=== PATIENT | female | born 1935 | race Caucasian/White ===

== ENCOUNTER 2017-07-25 12:57 | Inpatient (IN) | payer MEDICARE, BC ==
[2017-07-25] MEDS ORDERED: SODIUM CHLORIDE 0.9% 500 ML IV STA (13:06)
[2017-07-25] MEDS ORDERED: SODIUM CHLORIDE 0.9% 1,000 ML IV STA (13:06)
[2017-07-25] MEDS ORDERED: cefTRIAXone IN SWFI 1,000 MG/10 ML SYRINGE IVP STA (13:09)
--- NOTE | 2017-07-25 13:12 | ED ---
Weakness HPI - General Chief complaint: Weakness Stated complaint: Weakness Time Seen by Provider: 07/25/17 13:00 Source: EMS, RN notes reviewed Mode of arrival: EMS Limitations: no limitations - History of Present Illness Initial comments: This 82-year-old female with a history of hypertension and breast and colon cancer schizophrenia and hypertension who is brought in by EMS from an [facility] home with complaints of weakness she is noted have a temperature 101.2 A. fib with a heart rate of 110-120. She also noted be hypotensive she did respond to fluids. MD Complaint: generalized weakness - Related Data Home Medications Medication Instructions Recorded Confirmed Acetaminophen [Tylenol] 650 mg PO BID 07/25/17 07/25/17 Apixaban [Eliquis] 5 mg PO BID@0800,199907/25/17 07/25/17 Benzocaine/Menthol Lozeng [Cepacol 1 lozenge MUCOUS MEM Q4HR PRN 07/25/17 lozenge] Calcium Carbonate/Vitamin D3 1 tab PO BID@08,199907/25/17 07/25/17 [Calcium 600-Vit D3 400 Tablet] Carboxymethylcellulose Sodium 1 drop BOTH EYES Q6H PRN 07/25/17 07/25/17 [Refresh Tears] Docusate [Colace] 100 mg PO BID@0800,199907/25/17 07/25/17 Fluticasone Nasal [place] [Flonase 1 spray EA NOSTRIL DAILY@0800 07/25/17 07/25/17 Nasal [place]] Fluticasone/Salmeterol [Advair 1 puff INHALATION RT-BID@799,199907/25/1707/25 250-50 Diskus] Furosemide [Lasix] 40 mg PO DAILY@0800 07/25/17 07/25/17 Gabapentin [Neurontin] 300 mg PO BID@0800,199907/25/17 07/25/17 Hydrocortisone Acetate [Anucort-Hc] 25 mg RECTAL Q12H PRN 07/25/17 07/25/17 Loratadine [Claritin] 10 mg PO DAILY PRN 07/25/17 07/25/17 Multivit-Min/FA/Lycopen/Lutein 1 tab PO DAILY@0800 07/25/17 07/25/17 [Centrum Silver Tablet] OLANZapine [ZyPREXA Zydis] 20 mg PO HS@199907/25/17 07/25/17 Omeprazole [PriLOSEC] 20 mg PO BID@0600,199907/25/17 07/25/17 Polyethylene Glycol 3350 [Miralax] 17 gm PO DAILY PRN 07/25/17 07/25/17 Promethazine [Phenergan] 12.5 mg PO Q12H PRN 07/25/17 07/25/17 Simvastatin [Zocor] 20 mg PO HS@199907/25/17 07/25/17 guaiFENesin [Mucinex] 600 mg PO BID@0800,199907/25/17 07/25/17 guaiFENesin-DM 100-10MG/5ML 5 ml PO QID PRN 07/25/17 07/25/17 [Robitussin DM] traMADol HCL [Ultram] 50 mg PO TID PRN 07/25/17 07/25/17 Allergies Allergy/AdvReac Type Severity Reaction Status Date / Time No Known Allergies Allergy Verified 07/25/17 13:39 Review of Systems ROS Statement: Those systems with pertinent positive or pertinent negative responses have been documented in the HPI. Limitations: ROS unobtainable due to patients medical condition Past Medical History Past Medical History: Cancer, COPD, CVA/TIA, Hyperlipidemia, Hypertension Additional Past Medical History / Comment(s): colon & breast CA History of Any Multi-Drug Resistant Organisms: None Reported Past Surgical History: Breast Surgery Additional Past Surgical History / Comment(s): double mastectomy Past Psychological History: Schizophrenia Smoking Status: Never smoker Past Alcohol Use History: None Reported Past Drug Use History: None Reported General Exam - General Exam Comments Initial Comments: Is a well-developed well-nourished awake alert somewhat lethargic female Limitations: no limitations General appearance: alert, in no apparent distress Head exam: Present: atraumatic, normocephalic, normal inspection Eye exam: Present: normal appearance, PERRL, EOMI. Absent: scleral icterus, conjunctival injection, periorbital swelling ENT exam: Present: mucous membranes dry Neck exam: Present: normal inspection. Absent: tenderness, meningismus, lymphadenopathy Respiratory exam: Present: rhonchi (Right lower lobe rhonchi), decreased breath sounds. Absent: respiratory distress, wheezes, rales, stridor Cardiovascular Exam: Present: tachycardia, irregular rhythm. Absent: systolic murmur, diastolic murmur, rubs, gallop, clicks GI/Abdominal exam: Present: soft, normal bowel sounds. Absent: distended, tenderness, guarding, rebound, rigid Extremities exam: Present: normal inspection, full ROM, normal capillary refill. Absent: tenderness, pedal edema, joint swelling, calf tenderness Back exam: Present: normal inspection Neurological exam: Present: alert, oriented X3, CN II-XII intact Psychiatric exam: Present: normal affect, normal mood Skin exam: Present: warm, dry, intact, normal color. Absent: rash Course Vital Signs 07/25/17 07/25/17 07/25/17 12:59 13:51 14:36 Temperature 99.0 F Pulse Rate 120 H 109 H 95 Respiratory 20 18 18 Rate Blood Pressure 129/95 171/77 129/59 O2 Sat by Pulse 94 L 95 95 Oximetry 07/25/17 07/25/17 15:26 16:04 Temperature 98.8 F Pulse Rate 103 H 101 H Respiratory 18 18 Rate Blood Pressure 146/71 127/58 O2 Sat by Pulse 96 95 Oximetry EKG Findings - EKG Results: EKG: interpreted by ERMD (Atrial fibrillation rate of 114 QRS 80 QT since QTC of 3:30/465 nonspecific inferior changes nonspecific anterior changes) Medical Decision Making - Medical Decision Making Patient will be admitted I did discuss the case with the covering physician. The presentation is consistent with pneumonia dehydration renal insufficiency and rhabdomyolysis - Lab Data Result diagrams: 07/25/17 13:24 07/25/17 13:24 Lab Results 07/25/17 07/25/17 07/25/17 Range/Units 13:24 13:24 13:24 WBC 14.5 H (3.8-10.6) k/uL RBC 4.67 (3.80-5.40) m/uL Hgb 14.1 (11.4-16.0) gm/dL Hct 42.5 (34.0-46.0) % MCV 90.9 (80.0-100.0) fL MCH 30.2 (25.0-35.0) pg MCHC 33.3 (31.0-37.0) g/dL RDW 13.9 (11.5-15.5) % Plt Count 274 (150-450) k/uL Neutrophils % 91 % Lymphocytes % 3 % Monocytes % 5 % Eosinophils % 0 % Basophils % 0 % Neutrophils # 13.2 H (1.3-7.7) k/uL Lymphocytes # 0.4 L (1.0-4.8) k/uL Monocytes # 0.8 (0-1.0) k/uL Eosinophils # 0.0 (0-0.7) k/uL Basophils # 0.0 (0-0.2) k/uL Polychromasia Present Sodium 135 L (137-145) mmol/L Potassium 4.4 (3.5-5.1) mmol/L Chloride 99 (98-107) mmol/L Carbon Dioxide 28 (22-30) mmol/L Anion Gap 8 mmol/L BUN 50 H (7-17) mg/dL Creatinine 1.93 H (0.52-1.04) mg/dL Est GFR (MDRD) Af Amer 30 (>60 ml/min/1.73 sqM) Est GFR (MDRD) Non-Af 25 (>60 ml/min/1.73 sqM) Glucose 135 H (74-99) mg/dL Plasma Lactic Acid Miguel (0.7-2.0) mmol/L Calcium 10.1 (8.4-10.2) mg/dL Magnesium 2.5 H (1.6-2.3) mg/dL Total Bilirubin 0.9 (0.2-1.3) mg/dL AST 29 (14-36) U/L ALT 35 (9-52) U/L Alkaline Phosphatase 75 (38-126) U/L Total Creatine Kinase 885 H (30-135) U/L CK-MB (CK-2) 1.1 (0.0-2.4) ng/mL CK-MB (CK-2) Rel Index 0.1 Total Protein 6.2 L (6.3-8.2) g/dL Albumin 3.5 (3.5-5.0) g/dL Amylase 91 (30-110) U/L Lipase 64 (23-300) U/L Urine Color Urine Appearance (Clear) Urine pH (5.0-8.0) Ur Specific [place] (1.001-1.035) Urine Protein (Negative) Urine Glucose (UA) (Negative) Urine Ketones (Negative) Urine Blood (Negative) Urine Nitrite (Negative) Urine Bilirubin (Negative) Urine Urobilinogen (<2.0) mg/dL Ur Leukocyte Esterase (Negative) Urine RBC (0-5) /hpf Urine WBC (0-5) /hpf Urine WBC Clumps (None) /hpf Urine Bacteria (None) /hpf Hyaline Casts (0-2) /lpf Urine Mucus (None) /hpf 07/25/17 07/25/17 Range/Units 13:24 14:30 WBC (3.8-10.6) k/uL RBC (3.80-5.40) m/uL Hgb (11.4-16.0) gm/dL Hct (34.0-46.0) % MCV (80.0-100.0) fL MCH (25.0-35.0) pg MCHC (31.0-37.0) g/dL RDW (11.5-15.5) % Plt Count (150-450) k/uL Neutrophils % % Lymphocytes % % Monocytes % % Eosinophils % % Basophils % % Neutrophils # (1.3-7.7) k/uL Lymphocytes # (1.0-4.8) k/uL Monocytes # (0-1.0) k/uL Eosinophils # (0-0.7) k/uL Basophils # (0-0.2) k/uL Polychromasia Sodium (137-145) mmol/L Potassium (3.5-5.1) mmol/L Chloride (98-107) mmol/L Carbon Dioxide (22-30) mmol/L Anion Gap mmol/L BUN (7-17) mg/dL Creatinine (0.52-1.04) mg/dL Est GFR (MDRD) Af Amer (>60 ml/min/1.73 sqM) Est GFR (MDRD) Non-Af (>60 ml/min/1.73 sqM) Glucose (74-99) mg/dL Plasma Lactic Acid Miguel 1.8 (0.7-2.0) mmol/L Calcium (8.4-10.2) mg/dL Magnesium (1.6-2.3) mg/dL Total Bilirubin (0.2-1.3) mg/dL AST (14-36) U/L ALT (9-52) U/L Alkaline Phosphatase (38-126) U/L Total Creatine Kinase (30-135) U/L CK-MB (CK-2) (0.0-2.4) ng/mL CK-MB (CK-2) Rel Index Total Protein (6.3-8.2) g/dL Albumin (3.5-5.0) g/dL Amylase (30-110) U/L Lipase (23-300) U/L Urine Color Yellow Urine Appearance Cloudy H (Clear) Urine pH 5.5 (5.0-8.0) Ur Specific [place] 1.016 (1.001-1.035) Urine Protein Trace H (Negative) Urine Glucose (UA) Negative (Negative) Urine Ketones Negative (Negative) Urine Blood Negative (Negative) Urine Nitrite Negative (Negative) Urine Bilirubin Negative (Negative) Urine Urobilinogen <2.0 (<2.0) mg/dL Ur Leukocyte Esterase Large H (Negative) Urine RBC 1 (0-5) /hpf Urine WBC 75 H (0-5) /hpf Urine WBC Clumps Many H (None) /hpf Urine Bacteria Many H (None) /hpf Hyaline Casts 4 H (0-2) /lpf Urine Mucus Occasional H (None) /hpf - Radiology Data Radiology results: report reviewed (I did review the imaging and reports are is evidence of right lower lobe infiltrate also right middle lobe infiltrate.), image reviewed Disposition Clinical Impression: Pneumonia, Dehydration, New onset atrial fibrillation, Renal insufficiency, Rhabdomyolysis Disposition: ADMITTED IP TO THIS [facility] Condition: Serious Referrals: Dillon Beth MD [Primary Care Provider] - 1-2 days
[2017-07-25 13:49] LABS: Albumin 3.5 g/dL (3.5-5.0); Calcium 10.1 mg/dL (8.4-10.2); Magnesium 2.5 mg/dL (1.6-2.3); Potassium 4.4 mmol/L (3.5-5.1); Total Bilirubin 0.9 mg/dL (0.2-1.3); Total Protein 6.2 g/dL (6.3-8.2)
--- NOTE | 2017-07-25 13:57 | XR ---
EXAMINATION TYPE: XR chest 2V DATE OF EXAM: 07/25/2017 COMPARISON: None HISTORY: 82-year-old female with cough TECHNIQUE: AP and lateral views FINDINGS: Heart is upper limits of normal in size. Patchy interstitial and airspace opacities present in the ri ght perihilar, right mid and lower lung regions. No significant pleural effusion seen. IMPRESSION: Right mid and lower lung patchy and confluent consolidation. Correlate for possible pneumonia. Follow -up recommended.
[2017-07-25 14:01] LABS: Basophils % (A) 0 %; Eosinophils % (A) 0 %; HCT 42.5 % (34.0-46.0); HGB 14.1 gm/dL (11.4-16.0); Lymphocytes # (A) 0.4 k/uL (1.0-4.8); Lymphocytes % (A) 3 %; MCH 30.2 pg (25.0-35.0); MCHC 33.3 g/dL (31.0-37.0); MCV 90.9 fL (80.0-100.0); Mean Platelet Volume 7.6; Monocytes # (A) 0.8 k/uL (0-1.0); Monocytes % (A) 5 %; Neutrophils # (A) 13.2 k/uL (1.3-7.7); Neutrophils % (A) 91 %; Platelet Count 274 k/uL (150-450); RBC 4.67 m/uL (3.80-5.40); RDW 13.9 % (11.5-15.5); WBC 14.5 k/uL (3.8-10.6)
[2017-07-25 14:13] LABS: Creatine Kinase MB 1.1 ng/mL (0.0-2.4)
[2017-07-25 14:44] LABS: Appearance,Urine Cloudy (Clear); Bacteria,Urine Many /hpf; Bilirubin,Urine Negative (Negative); Blood,Urine Negative (Negative); Color,Urine Yellow; Glucose,Urine (UA) Negative (Negative); Hyaline Casts,Urine 4 /lpf (0-2); Ketones,Urine Negative (Negative); Leukocyte Esterase,Urine Large (Negative); Mucus,Urine Occasional /hpf; Nitrite,Urine Negative (Negative); PH, Urine 5.5 (5.0-8.0); Protein,Urine Trace (Negative); RBC,Urine 1 /hpf (0-5); Specific Gravity,Urine 1.016 (1.001-1.035); Urobilinogen,Urine <2.0 mg/dL (<2.0); WBC,Urine 75 /hpf (0-5)
[2017-07-25 15:18] LABS: Polychromasia Present
[2017-07-25] MEDS ORDERED: AZITHROMYCIN 500 MG in SODIUM CHLORIDE 0.9% 250 ML IVPB STA (16:09)
[2017-07-25] MEDS ORDERED: PNEUMONIA PROTOCOL UTILIZED 1 EACH MISC PO PRN (16:09)
[2017-07-25] MEDS ORDERED: LORATADINE 10 MG TAB PO PRN (16:11)
[2017-07-25] MEDS ORDERED: ARTIFICIAL TEARS-HYPROMELLOSE DROPS 15 ML BTL BOTH EYES PRN (16:11)
[2017-07-25] MEDS ORDERED: HYDROCORTISONE SUPPOSITORY 25 MG SUPP RECTAL PRN (16:11)
[2017-07-25] MEDS ORDERED: BENZOCAINE/MENTHOL LOZENG 1 EACH LOZENGE MUCOUS MEM PRN (16:11)
[2017-07-25] MEDS ORDERED: POLYETHYLENE GLYCOL 3350 17 GM POWD.PACK PO PRN (16:11)
[2017-07-25] MEDS ORDERED: traMADol 50 MG TAB PO PRN (16:11)
[2017-07-25] MEDS ORDERED: PROMETHAZINE 25 MG TAB PO PRN (16:11)
--- NOTE | 2017-07-25 17:39 | P.HPIM ---
History of Present Illness 82-year-old female came in the hospital with complaints of fever generalized tiredness and weakness. Patient has history of schizophrenia use Retin-A [facility] patient is complaining of cough without any sputum production patient denied any history of can start failure at although patient is on Lasix patient is quite dehydrated I do not have her previous labs with patient does have elevated be enough 50 creatinine 1.9 BUN creatinine ratio is consistent with prerenal azotemia and acute renal failure. Patient was also had atrial fibrillation with rapid ventricular rate rate responded well to IV fluids patient was continued on IV fluids Lasix will be discontinued and IV fluids will be continued patient is on anticoagulation for atrial fibrillation which will be continued patient was started on Rocephin and azithromycin sputum cultures and blood cultures were obtained. Review of Systems REVIEW OF SYSTEMS: CONSTITUTIONAL: No fever, no malaise, no fatigue. HEENT: No recent visual problems or hearing problems. Denied any sore throat. CARDIOVASCULAR: No chest pain, orthopnea, PND, no palpitations, no syncope. PULMONARY: As mentioned in HPI GASTROINTESTINAL: No diarrhea, no nausea, no vomiting, no abdominal pain. Normoactive bowel sounds. NEUROLOGICAL: No headaches, no weakness, no numbness. HEMATOLOGICAL: Denies any bleeding or petechiae. GENITOURINARY: Denies any burning micturition, frequency, or urgency. MUSCULOSKELETAL/RHEUMATOLOGICAL: Denies any joint pain, swelling, or any muscle pain. ENDOCRINE: Denies any polyuria or polydipsia. The rest of the 14-point review of systems is negative. Past Medical History Past Medical History: Cancer, COPD, CVA/TIA, Hyperlipidemia, Hypertension Additional Past Medical History / Comment(s): colon & breast CA History of Any Multi-Drug Resistant Organisms: None Reported Past Surgical History: Breast Surgery Additional Past Surgical History / Comment(s): double mastectomy Past Psychological History: Schizophrenia Smoking Status: Never smoker Past Alcohol Use History: None Reported Past Drug Use History: None Reported Medications and Allergies Home Medications Medication Instructions Recorded Confirmed Type Acetaminophen [Tylenol] 650 mg PO BID 07/25/17 07/25/17 History Apixaban [Eliquis] 5 mg PO BID@0800,2000 07/25/17 07/25/17 History Benzocaine/Menthol Lozeng [Cepacol 1 lozenge MUCOUS MEM Q4HR PRN 07/25/17 History lozenge] Calcium Carbonate/Vitamin D3 1 tab PO BID@0800,199907/25/17 07/25/17 History [Calcium 600-Vit D3 400 Tablet] Carboxymethylcellulose Sodium 1 drop BOTH EYES Q6H PRN 07/25/17 07/25/17 History [Refresh Tears] Docusate [Colace] 100 mg PO BID@0800,199907/25/17 07/25/17 History Fluticasone Nasal [place] [Flonase 1 spray EA NOSTRIL DAILY@0800 07/25/17 History Nasal [place]] Fluticasone/Salmeterol [Advair 1 puff INHALATION RT-BID@0800,199907/25/1707/25 History 250-50 Diskus] Furosemide [Lasix] 40 mg PO DAILY@0800 07/25/17 07/25/17 History Gabapentin [Neurontin] 300 mg PO BID@0800,199907/25/17 07/25/17 History Hydrocortisone Acetate [Anucort-Hc] 25 mg RECTAL Q12H PRN 07/25/17 07/25/17 History Loratadine [Claritin] 10 mg PO DAILY PRN 07/25/17 07/25/17 History Multivit-Min/FA/Lycopen/Lutein 1 tab PO DAILY@0800 07/25/17 07/25/17 History [Centrum Silver Tablet] OLANZapine [ZyPREXA Zydis] 20 mg PO HS@199907/25/17 07/25/17 History Omeprazole [PriLOSEC] 20 mg PO BID@0600,199907/25/17 07/25/17 History Polyethylene Glycol 3350 [Miralax] 17 gm PO DAILY PRN 07/25/17 07/25/17 History Promethazine [Phenergan] 12.5 mg PO Q12H PRN 07/25/17 07/25/17 History Simvastatin [Zocor] 20 mg PO HS@199907/25/17 07/25/17 History guaiFENesin [Mucinex] 600 mg PO BID@0800,199907/25/17 07/25/17 History guaiFENesin-DM 100-10MG/5ML 5 ml PO QID PRN 07/25/17 07/25/17 History [Robitussin DM] traMADol HCL [Ultram] 50 mg PO TID PRN 07/25/17 07/25/17 History Allergies Allergy/AdvReac Type Severity Reaction Status Date / Time No Known Allergies Allergy Verified 07/25/17 13:39 Physical Exam Vitals: Vital Signs Temp Pulse Resp BP Pulse Ox 07/25/17 16:04 98.8 F 101 H 18 127/58 95 07/25/17 15:26 103 H 18 146/71 96 07/25/17 14:36 95 18 129/59 95 07/25/17 13:51 109 H 18 171/77 95 07/25/17 12:59 99.0 F 120 H 20 129/95 94 L Intake and Output 07/25/17 07/25/17 07/25/17 06:59 14:59 22:59 Other: Weight 90.718 kg Patient Weight 07/26/17 06:59 Weight 90.718 kg PHYSICAL EXAMINATION: GENERAL: The patient is alert and oriented x3, not in any acute distress. Well developed, well nourished. HEENT: Pupils are round and equally reacting to light. EOMI. No scleral icterus. No conjunctival pallor. Normocephalic, atraumatic. No pharyngeal erythema. No thyromegaly. CARDIOVASCULAR: S1 and S2 present. No murmurs, rubs, or gallops. PULMONARY: Patient does have rhonchus breath sounds bilaterally bronchophony egophony and a right lower and posterior lung [place] ABDOMEN: Soft, nontender, nondistended, normoactive bowel sounds. No palpable organomegaly. MUSCULOSKELETAL: No joint swelling or deformity. EXTREMITIES: No cyanosis, clubbing, or pedal edema. NEUROLOGICAL: Gross neurological examination did not reveal any focal deficits. SKIN: No rashes. Results CBC & Chem 7: 07/25/17 13:24 07/25/17 13:24 Labs: Abnormal Lab Results - Last 24 Hours (Table) 07/25/17 07/25/17 07/25/17 Range/Units 13:24 13:24 13:24 WBC 14.5 H (3.8-10.6) k/uL Neutrophils # 13.2 H (1.3-7.7) k/uL Lymphocytes # 0.4 L (1.0-4.8) k/uL Sodium 135 L (137-145) mmol/L BUN 50 H (7-17) mg/dL Creatinine 1.93 H (0.52-1.04) mg/dL Glucose 135 H (74-99) mg/dL Magnesium 2.5 H (1.6-2.3) mg/dL Total Creatine Kinase 885 H (30-135) U/L Total Protein 6.2 L (6.3-8.2) g/dL Urine Appearance (Clear) Urine Protein (Negative) Ur Leukocyte Esterase (Negative) Urine WBC (0-5) /hpf Urine WBC Clumps (None) /hpf Urine Bacteria (None) /hpf Hyaline Casts (0-2) /lpf Urine Mucus (None) /hpf 07/25/17 Range/Units 14:30 WBC (3.8-10.6) k/uL Neutrophils # (1.3-7.7) k/uL Lymphocytes # (1.0-4.8) k/uL Sodium (137-145) mmol/L BUN (7-17) mg/dL Creatinine (0.52-1.04) mg/dL Glucose (74-99) mg/dL Magnesium (1.6-2.3) mg/dL Total Creatine Kinase (30-135) U/L Total Protein (6.3-8.2) g/dL Urine Appearance Cloudy H (Clear) Urine Protein Trace H (Negative) Ur Leukocyte Esterase Large H (Negative) Urine WBC 75 H (0-5) /hpf Urine WBC Clumps Many H (None) /hpf Urine Bacteria Many H (None) /hpf Hyaline Casts 4 H (0-2) /lpf Urine Mucus Occasional H (None) /hpf Assessment and Plan Plan: -Sepsis secondary to possible right lower lobe pneumonia, and did quite pneumonia patient is on Rocephin and azithromycin which will continued patient most probably has pneumococcal pneumonia. -Atrial fibrillation presently rate controlled patient was in A. fib with rapid and regular rate is monitor IV fluids continued on rate control medications and anticoagulation IV fluids this can you Lasix obtain echocardiogram -COPD with acute exacerbation patient will benefit from systemic strides patient does have wheezing which I did not dictate in the physical exam 10 gastroesophageal reflux disease -Hyperlipidemia -Schizophrenia: Continue with home medications of olanzapine -History of CVA in the past
[2017-07-25] MEDS ORDERED: IPRATROPIUM-ALBUTEROL 3 ML NEB INHALATION SCH (18:00)
[2017-07-25 18:27] LABS: Basophils # (A) 0.1 k/uL (0-0.2); Basophils % (A) 0 %; Eosinophils % (A) 0 %; HCT 42.7 % (34.0-46.0); HGB 13.7 gm/dL (11.4-16.0); Lymphocytes # (A) 0.5 k/uL (1.0-4.8); Lymphocytes % (A) 3 %; MCH 29.7 pg (25.0-35.0); MCHC 32.1 g/dL (31.0-37.0); MCV 92.6 fL (80.0-100.0); Mean Platelet Volume 7.3; Monocytes # (A) 0.7 k/uL (0-1.0); Monocytes % (A) 5 %; Neutrophils % (A) 91 %; Platelet Count 253 k/uL (150-450); RBC 4.61 m/uL (3.80-5.40); RDW 13.9 % (11.5-15.5); WBC 16.4 k/uL (3.8-10.6)
[2017-07-25 18:42] LABS: Polychromasia Present
[2017-07-25] MEDS: SODIUM CHLORIDE 0.9% 1,000 ML IV SCH (18:54)
[2017-07-25] MEDS: APIXABAN 2.5 MG TABLET PO SCH (21:01)
[2017-07-25] MEDS: CALCIUM CARB-VIT D 500MG-200UN 1 EACH TAB PO SCH (21:02)
[2017-07-25] MEDS: DOCUSATE 100 MG CAP PO SCH (21:02)
[2017-07-25] MEDS: ATORVASTATIN 10 MG TAB PO SCH (21:02)
[2017-07-25] MEDS: OLANZapine ODT 10 MG TAB PO SCH (21:02)
[2017-07-25] MEDS: GABAPENTIN 300 MG CAP PO SCH (21:02)
[2017-07-25] MEDS: ACETAMINOPHEN TAB 325 MG TAB PO SCH (21:10)
[2017-07-25] MEDS: SYMBICORT 80-4.5 MCG INHALER INHALATION SCH (21:19)
[2017-07-26] MEDS: SODIUM CHLORIDE 0.9% 1,000 ML IV SCH ×3 (02:53→21:51)
[2017-07-26 06:32] LABS: Calcium 9.5 mg/dL (8.4-10.2); Potassium 4.1 mmol/L (3.5-5.1); Total Bilirubin 0.7 mg/dL (0.2-1.3); Total Protein 5.6 g/dL (6.3-8.2)
[2017-07-26] MEDS ORDERED: PANTOPRAZOLE 40 MG TABLET PO SCH (07:30)
[2017-07-26] MEDS ORDERED: FUROSEMIDE 40 MG TAB PO SCH (08:00)
[2017-07-26] MEDS: DOCUSATE 100 MG CAP PO SCH ×2 (09:12→21:49)
[2017-07-26] MEDS: APIXABAN 2.5 MG TABLET PO SCH ×2 (09:12→21:48)
[2017-07-26] MEDS: MULTIVITAMINS, THERA 1 EACH TAB PO SCH (09:12)
[2017-07-26] MEDS: CALCIUM CARB-VIT D 500MG-200UN 1 EACH TAB PO SCH ×2 (09:12→21:49)
[2017-07-26] MEDS: GABAPENTIN 300 MG CAP PO SCH ×2 (09:12→21:49)
[2017-07-26] MEDS: ACETAMINOPHEN TAB 325 MG TAB PO SCH ×2 (09:14→21:49)
[2017-07-26] MEDS: SYMBICORT 80-4.5 MCG INHALER INHALATION SCH ×2 (11:24→21:10)
[2017-07-26] MEDS: IPRATROPIUM-ALBUTEROL 3 ML NEB INHALATION SCH ×4 (11:25→21:10)
[2017-07-26] MEDS: ONDANSETRON 4 MG/2 ML VIAL IVP PRN (12:42)
--- NOTE | 2017-07-26 13:42 | ECHOF ---
Referral Reason:Possible CHF MEASUREMENTS -------- HEIGHT: 172.7 cm WEIGHT: 74.4 kg BP: 129/58 IVSd: 1.3 cm (0.6 - 1.1) LVIDd: 3.6 cm (3.9 - 5.3) LVPWd: 1.3 cm (0.6 - 1.1) IVSs: 1.7 cm LVIDs: 2.3 cm LVPWs: 1.7 cm LAESV Index (A-L): 63.19 ml/m Ao Diam: 3.6 cm (2.0 - 3.7) AV Cusp: 2.1 cm (1.5 - 2.6) LA Diam: 5.0 cm (2.7 - 3.8) AR PHT: 512 ms RAP: 5.00 mmHg RVSP: 36.52 mmHg FINDINGS -------- Atrial fibrillation. This was a technically adequate study. The left ventricular size is normal. There is mild concentric left ventricular hypertrophy. Overa ll left ventricular systolic function is normal with, an EF between 55 - 60 %. The right ventricle is normal in size and function. LA is severely dilated >40 ml/m2 The right atrium is normal in size. Aortic valve is trileaflet and is mildly thickened. There is moderate aortic regurgitation. The a ortic pressure half-time by doppler is 512ms. There is no evidence of aortic stenosis. The mitral valve leaflets are mildly thickened. There is trace to mild mitral regurgitation. Mild tricuspid regurgitation present. There is borderline pulmonary hypertension. The right ventr icular systolic pressure, as measured by Doppler, is 36.52mmHg. The pulmonic valve was not well visualized. The aortic root, ascending aorta and aortic arch are normal. IVC Not well visulized. The pericardium is normal. There is no pericardial effusion. CONCLUSIONS -------- 1. Atrial fibrillation. 2. This was a technically adequate study. 3. The left ventricular size is normal. 4. There is mild concentric left ventricular hypertrophy. 5. Overall left ventricular systolic function is normal with, an EF between 55 - 60 %. 6. LA is severely dilated >40 ml/m2 7. Aortic valve is trileaflet and is mildly thickened. 8. There is moderate aortic regurgitation. 9. The aortic pressure half-time by doppler is 512ms. 10. The mitral valve leaflets are mildly thickened. 11. There is trace to mild mitral regurgitation. 12. Mild tricuspid regurgitation present. 13. There is borderline pulmonary hypertension. 14. The right ventricular systolic pressure, as measured by Doppler, is 36.52mmHg. 15. The pulmonic valve was not well visualized. 16. IVC Not well visulized. 17. There is no pericardial effusion. SAL[employer]IATE: Deny Tellez RDCS
[2017-07-26] MEDS ORDERED: cefTRIAXone IN SWFI 1,000 MG/10 ML SYRINGE IVP SCH (16:11)
[2017-07-26] MEDS: AZITHROMYCIN 500 MG TAB PO SCH (16:18)
--- NOTE | 2017-07-26 16:35 | P.PN ---
Subjective Patient is still started a breath and wheezy and rhonchorous on exam patient is coughing and is nauseous at this time Constitutional: Denied any fatigue denied any fever. Cardio vascular: denied any chest pain, palpitations Gastrointestinal as mentioned above Pulmonary: Mentioned above Neurologic denied any new focal deficits Objective - Vital Signs Vital signs: Vital Signs Temp 99.8 F H 07/26/17 15:49 Pulse 84 07/26/17 15:49 Resp 18 07/26/17 15:49 BP 135/61 07/26/17 15:49 Pulse Ox 97 07/26/17 15:49 Intake & Output 07/25/17 07/26/17 07/26/17 18:59 06:59 18:59 Intake Total 180 800 400 Output Total 500 175 Balance -320 625 400 Weight 90.718 kg 74.5 kg Intake: Intake, IV Titration 800 300 Amount Sodium Chloride 0.9% 1, 800 300 000 ml @ 100 mls/hr IV . Q10H RHONA Rx#:[id number] Oral 180 100 Output: Urine 500 175 Other: Voiding Method Toilet Toilet Toilet # Voids 1 - Exam PHYSICAL EXAMINATION: GENERAL: The patient is alert and oriented x3, not in any acute distress. Well developed, well nourished. HEENT: Pupils are round and equally reacting to light. EOMI. No scleral icterus. No conjunctival pallor. Normocephalic, atraumatic. No pharyngeal erythema. No thyromegaly. CARDIOVASCULAR: S1 and S2 present. No murmurs, rubs, or gallops. PULMONARY: Patient does have rhonchus breath sounds bilaterally bronchophony egophony and a right lower and posterior lung [place] ABDOMEN: Soft, nontender, nondistended, normoactive bowel sounds. No palpable organomegaly. MUSCULOSKELETAL: No joint swelling or deformity. EXTREMITIES: No cyanosis, clubbing, or pedal edema. NEUROLOGICAL: Gross neurological examination did not reveal any focal deficits. SKIN: No rashes. - Labs CBC & Chem 7: 07/25/17 17:51 07/26/17 05:36 Labs: Abnormal Lab Results - Last 24 Hours (Table) 07/25/17 07/26/17 Range/Units 17:51 05:36 WBC 16.4 H (3.8-10.6) k/uL Neutrophils # 15.0 H (1.3-7.7) k/uL Lymphocytes # 0.5 L (1.0-4.8) k/uL Sodium 135 L (137-145) mmol/L BUN 48 H (7-17) mg/dL Creatinine 1.56 H (0.52-1.04) mg/dL Glucose 125 H (74-99) mg/dL AST 69 H (14-36) U/L Total Protein 5.6 L (6.3-8.2) g/dL Albumin 3.0 L (3.5-5.0) g/dL Microbiology - Last 24 Hours (Table) 07/25/17 13:24 Blood Culture - Preliminary Blood No Growth after 24 hours Assessment and Plan Plan: -Sepsis secondary to possible right lower lobe pneumonia, and did quite pneumonia patient is on Rocephin and azithromycin which will continued patient most probably has pneumococcal pneumonia. -Atrial fibrillation presently rate controlled patient was in A. fib with rapid and regular rate is monitor IV fluids continued on rate control medications and anticoagulation IV fluids this can you Lasix obtain echocardiogram -COPD with acute exacerbation patient will benefit from systemic strides patient does have wheezing which I did not dictate in the physical exam 10 gastroesophageal reflux disease -Hyperlipidemia -Schizophrenia: Continue with home medications of olanzapine -History of CVA in the past
[2017-07-26] MEDS: ATORVASTATIN 10 MG TAB PO SCH (21:49)
[2017-07-26] MEDS: OLANZapine ODT 10 MG TAB PO SCH (21:49)
[2017-07-26] MEDS: guaiFENesin-DM 100-10MG/5ML 10 ML CUP PO PRN (23:08)
[2017-07-27 06:13] LABS: HCT 37.1 % (34.0-46.0); HGB 11.6 gm/dL (11.4-16.0); MCH 29.6 pg (25.0-35.0); MCHC 31.4 g/dL (31.0-37.0); MCV 94.4 fL (80.0-100.0); Mean Platelet Volume 7.9; Platelet Count 234 k/uL (150-450); RBC 3.93 m/uL (3.80-5.40); RDW 14.9 % (11.5-15.5)
[2017-07-27 06:36] LABS: Calcium 9.2 mg/dL (8.4-10.2); Potassium 3.9 mmol/L (3.5-5.1)
[2017-07-27] MEDS: IPRATROPIUM-ALBUTEROL 3 ML NEB INHALATION SCH ×4 (07:58→20:09)
[2017-07-27] MEDS: SYMBICORT 80-4.5 MCG INHALER INHALATION SCH ×2 (07:58→20:09)
[2017-07-27] MEDS: AZITHROMYCIN 500 MG TAB PO SCH (08:36)
[2017-07-27] MEDS: SODIUM CHLORIDE 0.9% 1,000 ML IV SCH ×2 (08:36→14:25)
[2017-07-27] MEDS: DOCUSATE 100 MG CAP PO SCH ×2 (08:36→20:22)
[2017-07-27] MEDS: APIXABAN 2.5 MG TABLET PO SCH ×2 (08:36→20:22)
[2017-07-27] MEDS: GABAPENTIN 300 MG CAP PO SCH ×2 (08:36→20:22)
[2017-07-27] MEDS: MULTIVITAMINS, THERA 1 EACH TAB PO SCH (08:36)
[2017-07-27] MEDS: CALCIUM CARB-VIT D 500MG-200UN 1 EACH TAB PO SCH ×2 (08:36→20:22)
[2017-07-27] MEDS: ACETAMINOPHEN TAB 325 MG TAB PO SCH ×2 (08:37→20:23)
--- NOTE | 2017-07-27 08:58 | XR ---
EXAMINATION TYPE: XR chest 1V DATE OF EXAM: 07/27/2017 COMPARISON: 07/25/2017 HISTORY: 82 year-old female follow-up pneumonia TECHNIQUE: Single frontal view of the chest is obtained. FINDINGS: Heart upper limits of normal in size. Low lung volumes with crowded vascular markings. Mild atheroscl erotic arch calcifications. Persistent right mid and lower lung airspace opacity. There may be minima l improvement. IMPRESSION: Minimal improvement in the right mid and lower lung infiltrate.
[2017-07-27] MEDS: guaiFENesin-DM 100-10MG/5ML 10 ML CUP PO PRN (09:37)
[2017-07-27] MEDS: cefTRIAXone IN SWFI 1,000 MG/10 ML SYRINGE IVP SCH (09:37)
[2017-07-27] MEDS: ONDANSETRON 4 MG/2 ML VIAL IVP PRN ×2 (15:01→20:59)
--- NOTE | 2017-07-27 17:02 | P.PN ---
Subjective Patient is still started a breath and wheezy and rhonchorous on exam patient is coughing and is nauseous at this time 07/27/2017 Patient is feeling much better today, continue with antibiotics PT and OT evaluation possibility of discharge tomorrow Constitutional: Denied any fatigue denied any fever. Cardio vascular: denied any chest pain, palpitations Pulmonary: Mentioned above Neurologic denied any new focal deficits Objective - Vital Signs Vital signs: Vital Signs Temp 98.5 F 07/27/17 15:06 Pulse 96 07/27/17 16:28 Resp 16 07/27/17 15:06 BP 161/81 07/27/17 15:06 Pulse Ox 95 07/27/17 15:06 Intake & Output 07/26/17 07/27/17 07/27/17 18:59 06:59 18:59 Intake Total 400 800 480 Output Total 800 800 125 Balance -400 0 355 Weight 91.6 kg Intake: Intake, IV Titration 300 800 Amount Sodium Chloride 0.9% 1, 300 800 000 ml @ 100 mls/hr IV . Q10H RHONA Rx#:[id number] Oral 100 480 Output: Urine 800 800 125 Other: Voiding Method Toilet Toilet Toilet # Voids 1 2 - Exam PHYSICAL EXAMINATION: GENERAL: The patient is alert and oriented x3, not in any acute distress. Well developed, well nourished. HEENT: Pupils are round and equally reacting to light. EOMI. No scleral icterus. No conjunctival pallor. Normocephalic, atraumatic. No pharyngeal erythema. No thyromegaly. CARDIOVASCULAR: S1 and S2 present. No murmurs, rubs, or gallops. PULMONARY: Patient does have rhonchus breath sounds bilaterally bronchophony egophony and a right lower and posterior lung [place] ABDOMEN: Soft, nontender, nondistended, normoactive bowel sounds. No palpable organomegaly. MUSCULOSKELETAL: No joint swelling or deformity. EXTREMITIES: No cyanosis, clubbing, or pedal edema. NEUROLOGICAL: Gross neurological examination did not reveal any focal deficits. SKIN: No rashes. - Labs CBC & Chem 7: 07/27/17 05:45 07/27/17 05:45 Labs: Abnormal Lab Results - Last 24 Hours (Table) 07/27/17 Range/Units 05:45 BUN 36 H (7-17) mg/dL Creatinine 1.30 H (0.52-1.04) mg/dL Microbiology - Last 24 Hours (Table) 07/25/17 13:24 Blood Culture - Preliminary Blood No Growth after 48 hours Assessment and Plan Plan: -Sepsis secondary to possible right lower lobe pneumonia, and did quite pneumonia patient is on Rocephin and azithromycin which will continued patient most probably has pneumococcal pneumonia. -Atrial fibrillation presently rate controlled patient was in A. fib with rapid and regular rate is monitor IV fluids are being discontinued at this time repeat chest x-ray showed improvement in pneumonic process -COPD with acute exacerbation patient will benefit from systemic steroids - gastroesophageal reflux disease -Hyperlipidemia -Schizophrenia: Continue with home medications of olanzapine -History of CVA in the past
[2017-07-27] MEDS: ATORVASTATIN 10 MG TAB PO SCH (20:22)
[2017-07-27] MEDS: OLANZapine ODT 10 MG TAB PO SCH (20:22)
[2017-07-28] MEDS: ONDANSETRON 4 MG/2 ML VIAL IVP PRN (03:28)
[2017-07-28] MEDS: IPRATROPIUM-ALBUTEROL 3 ML NEB INHALATION SCH ×4 (08:32→20:26)
[2017-07-28] MEDS: SYMBICORT 80-4.5 MCG INHALER INHALATION SCH (08:32)
[2017-07-28] MEDS: cefTRIAXone IN SWFI 1,000 MG/10 ML SYRINGE IVP SCH (08:50)
--- NOTE | 2017-07-28 09:42 | XR ---
EXAMINATION TYPE: XR chest 1V portable DATE OF EXAM: 07/28/2017 COMPARISON: 07/27/2017 HISTORY: Nausea and vomiting TECHNIQUE: Single frontal view of the chest is obtained. FINDINGS: Heart is again upper limits of normal. Linear bibasilar airspace disease likely represents atelectasis. This is similar in degree from the prior. There is haziness of the right hemidiaphragm likely relates to a trace pleural effusion. Remainder the lungs are clear. No pneumothorax. Calcific left apical pleural thickening is noted. Moderate right and mild left glenohumeral degenerative villan[place] es are present. IMPRESSION: Bibasilar airspace disease, similar to the prior likely related to atelectasis given the ir linear configuration. Suspected trace right pleural effusion.
--- NOTE | 2017-07-28 09:44 | XR ---
EXAMINATION TYPE: XR abdomen 1V DATE OF EXAM: 07/28/2017 9:29 AM CLINICAL HISTORY: Nausea and vomiting, rule out ileus. TECHNIQUE: Single supine image of the abdomen is obtained. COMPARISON: None. FINDINGS: Few dilated loops of small bowel are scattered within the right mid abdomen and mid abdomen measuring up to 6.2 cm. Colonic stool and air are noted more distally. Surgical clips are seen withi n the right mid abdomen and right lower abdomen. Extensive degenerative changes of the lumbar spine a re present. Nonspecific sclerosis of the right iliac bone is also present. Gas and fecal material is seen in non-distended colon. Lung bases are discussed in the chest radiograph dictation of the same d ate. IMPRESSION: Multiple dilated loops of small bowel that may relate to ileus or early small bowel obstr uction. Progress films are recommended to evaluate for resolution and/or progression.
[2017-07-28] MEDS ORDERED: FUROSEMIDE 10 MG/ML 4 ML VIAL IV STA (09:55)
--- NOTE | 2017-07-28 10:59 | P.CNPUL ---
History of Present Illness Consult date: 07/28/17 Reason for consult: dyspnea, cough, pneumonia, abnormal CXR/CT, other Chief complaint: Weakness History of present illness: Consult dated 07/28/2017 This is an 82-year-old female that we saw in consultation. She has a history of breast and colon cancer as well as hypertension. She apparently lives at a [facility] and is seen by a visiting physician by the name of Dr. Beth. She had weakness. She also had cough and shortness of breath. Not producing any phlegm. She had a temperature elevation of 101.2. She also was found have atrial fibrillation with rapid ventricular response with a heart rate about 1 20 bpm. She appears to be a little short of breath even at the current time. Chest x-ray initially shows some patchy infiltrates in the right midlung and right lower lobe potentially consistent with pneumonia. Again her symptoms could be consistent with heart failure and/or pneumonia. Anyway she is doing a bit better not a lot. Not a particularly good historian. Review of Systems 12 point review of system is positive for shortness of breath cough which is mostly nonproductive weakness and also fever. Past Medical History Past Medical History: Cancer, COPD, CVA/TIA, Hyperlipidemia, Hypertension Additional Past Medical History / Comment(s): colon & breast CA Last Myocardial Infarction Date:: unk History of Any Multi-Drug Resistant Organisms: None Reported Past Surgical History: Breast Surgery Additional Past Surgical History / Comment(s): double mastectomy Past Anesthesia/Blood Transfusion Reactions: No Reported Reaction Smoking Status: Former smoker - Past Family History Mother Additional Family Medical History / Comment(s): "back problems' Father History Unknown: Yes Medications and Allergies Home Medications Medication Instructions Recorded Confirmed Type Acetaminophen [Tylenol] 650 mg PO BID 07/25/17 07/25/17 History Apixaban [Eliquis] 5 mg PO BID@08,199907/25/17 07/25/17 History Benzocaine/Menthol Lozeng [Cepacol 1 lozenge MUCOUS MEM Q4HR PRN 07/25/17 History lozenge] Calcium Carbonate/Vitamin D3 1 tab PO BID@0800,199907/25/17 07/25/17 History [Calcium 600-Vit D3 400 Tablet] Carboxymethylcellulose Sodium 1 drop BOTH EYES Q6H PRN 07/25/17 07/25/17 History [Refresh Tears] Docusate [Colace] 100 mg PO BID@0800,199907/25/17 07/25/17 History Fluticasone Nasal [place] [Flonase 1 spray EA NOSTRIL DAILY@0800 07/25/17 History Nasal [place]] Fluticasone/Salmeterol [Advair 1 puff INHALATION RT-BID@08,199907/25/1707/25 History 250-50 Diskus] Furosemide [Lasix] 40 mg PO DAILY@0800 07/25/17 07/25/17 History Gabapentin [Neurontin] 300 mg PO BID@0800,199907/25/17 07/25/17 History Hydrocortisone Acetate [Anucort-Hc] 25 mg RECTAL Q12H PRN 07/25/17 07/25/17 History Loratadine [Claritin] 10 mg PO DAILY PRN 07/25/17 07/25/17 History Multivit-Min/FA/Lycopen/Lutein 1 tab PO DAILY@0800 07/25/17 07/25/17 History [Centrum Silver Tablet] OLANZapine [ZyPREXA Zydis] 20 mg PO HS@199907/25/17 07/25/17 History Omeprazole [PriLOSEC] 20 mg PO BID@0600,199907/25/17 07/25/17 History Polyethylene Glycol 3350 [Miralax] 17 gm PO DAILY PRN 07/25/17 07/25/17 History Promethazine [Phenergan] 12.5 mg PO Q12H PRN 07/25/17 07/25/17 History Simvastatin [Zocor] 20 mg PO HS@199907/25/17 07/25/17 History guaiFENesin [Mucinex] 600 mg PO BID@0800,199907/25/17 07/25/17 History guaiFENesin-DM 100-10MG/5ML 5 ml PO QID PRN 07/25/17 07/25/17 History [Robitussin DM] traMADol HCL [Ultram] 50 mg PO TID PRN 07/25/17 07/25/17 History Allergies Allergy/AdvReac Type Severity Reaction Status Date / Time No Known Allergies Allergy Verified 07/25/17 13:39 Physical Exam Osteopathic Statement: *. No significant issues noted on an osteopathic structural exam other than those noted in the History and Physical/Consult. Vitals: Vital Signs Temp Pulse Pulse Resp BP Pulse Ox 07/28/17 08:39 100 07/28/17 08:34 104 H 07/28/17 08:00 96.4 F L 99 16 139/92 95 07/28/17 04:00 97.9 F 103 H 19 144/73 95 07/28/17 00:00 97.3 F L 88 19 143/77 96 07/27/17 20:21 100 07/27/17 20:09 100 07/27/17 20:00 111 H 20 143/73 97 07/27/17 16:28 96 07/27/17 16:14 96 07/27/17 15:06 98.5 F 115 H 16 161/81 95 07/27/17 11:42 98.9 F 94 16 134/74 94 L Intake and Output 07/27/17 07/28/17 07/28/17 22:59 06:59 14:59 Intake Total 225 300 180 Output Total 300 Balance 225 300 -120 Intake: Oral 225 300 180 Output: Urine 300 Other: Voiding Method Toilet Toilet Toilet # Voids 2 # Emes[place] 2 Weight 70 kg Conversational dyspnea. Oriented 3. HEENT examination is grossly unremarkable. Mucous membranes are moist. No oral lesions. Neck supple. Full range of motion. No adenopathy thyromegaly or neck vein distention. Cardiovascular examination reveals a irregular rhythm. Heart rate less than 100. S1-S2 normal. No murmur. Lungs reveal few scattered rhonchi. Some bibasilar crackles. No wheezes. Breath sounds equal bilaterally. Abdomen soft bowel sounds are heard. No masses or tenderness. Extremities are intact. No cyanosis clubbing. Mild edema. Skin is without rash or lesion. Neurologic examination is difficult to perform. Results - Laboratory Findings CBC and BMP: 07/27/17 05:45 07/27/17 05:45 Abnormal lab findings: Abnormal Labs 07/25/17 07/25/17 07/25/17 13:24 13:24 13:24 WBC 14.5 H Neutrophils # 13.2 H Lymphocytes # 0.4 L Sodium 135 L BUN 50 H Creatinine 1.93 H Glucose 135 H Magnesium 2.5 H AST Total Creatine Kinase 885 H Total Protein 6.2 L Albumin Urine Appearance Urine Protein Ur Leukocyte Esterase Urine WBC Urine WBC Clumps Urine Bacteria Hyaline Casts Urine Mucus 07/25/17 07/25/17 07/26/17 14:30 17:51 05:36 WBC 16.4 H Neutrophils # 15.0 H Lymphocytes # 0.5 L Sodium 135 L BUN 48 H Creatinine 1.56 H Glucose 125 H Magnesium AST 69 H Total Creatine Kinase Total Protein 5.6 L Albumin 3.0 L Urine Appearance Cloudy H Urine Protein Trace H Ur Leukocyte Esterase Large H Urine WBC 75 H Urine WBC Clumps Many H Urine Bacteria Many H Hyaline Casts 4 H Urine Mucus Occasional H 07/27/17 05:45 WBC Neutrophils # Lymphocytes # Sodium BUN 36 H Creatinine 1.30 H Glucose Magnesium AST Total Creatine Kinase Total Protein Albumin Urine Appearance Urine Protein Ur Leukocyte Esterase Urine WBC Urine WBC Clumps Urine Bacteria Hyaline Casts Urine Mucus - Diagnostic Findings Chest x-ray: image reviewed (Chest x-ray labs and medications are all reviewed. Multiple x-ray show a resolving pattern of either heart failure and/or pneumonia) Assessment and Plan (1) Hypertension Current Visit: Yes Status: Acute Code(s): I10 - ESSENTIAL (PRIMARY) HYPERTENSION SNOMED Code(s): 87114780 (2) Hyperlipidemia Current Visit: Yes Status: Acute Code(s): E78.5 - HYPERLIPIDEMIA, UNSPECIFIED SNOMED Code(s): 05968235 (3) Colon cancer Current Visit: Yes Status: Acute Code(s): C18.9 - MALIGNANT NEOPLASM OF COLON, UNSPECIFIED SNOMED Code(s): 850825475 (4) Breast cancer Current Visit: Yes Status: Acute Code(s): C50.919 - MALIGNANT NEOPLASM OF UNSP SITE OF UNSPECIFIED FEMALE BREAST SNOMED Code(s): 560714797 (5) Dehydration Current Visit: Yes Status: Acute Code(s): E86.0 - DEHYDRATION SNOMED Code( s): 48797679 (6) New onset atrial fibrillation Current Visit: Yes Status: Acute Code(s): I48.91 - UNSPECIFIED ATRIAL FIBRILLATION SNOMED Code(s): 55243572 (7) Pneumonia Current Visit: Yes Status: Acute Code(s): J18.9 - PNEUMONIA, UNSPECIFIED ORGANISM SNOMED Code(s): 483282528 (8) Renal insufficiency Current Visit: Yes Status: Acute Code(s): N28.9 - DISORDER OF KIDNEY AND URETER, UNSPECIFIED SNOMED Code(s): 702545209 Plan: Plan dated 07/28/2017 Very hard to get any good history from this patient. She is seen by a visiting physician. We'll review the x-rays labs and medications. It would be appropriate to put her on updrafts. Antibiotics are also appropriate. We'll continue to follow. We'll check a BNP. He may be a component of fluid overload. X-rays are improving though. Time with Patient: Greater than 30
[2017-07-28 14:02] LABS: Potassium 3.8 mmol/L (3.5-5.1)
[2017-07-28] MEDS: DOCUSATE 100 MG CAP PO SCH (14:05)
[2017-07-28] MEDS: ACETAMINOPHEN TAB 325 MG TAB PO SCH (14:05)
[2017-07-28] MEDS: CALCIUM CARB-VIT D 500MG-200UN 1 EACH TAB PO SCH (14:05)
[2017-07-28] MEDS: MULTIVITAMINS, THERA 1 EACH TAB PO SCH (14:05)
[2017-07-28] MEDS: GABAPENTIN 300 MG CAP PO SCH (14:05)
[2017-07-28] MEDS: PIPERACILLIN-TAZOBACTAM 3.375 GM in DEXTROSE/WATER 1 50ML.BAG IVPB SCH (15:10)
[2017-07-28] MEDS: AZITHROMYCIN 500 MG TAB PO SCH (15:11)
--- NOTE | 2017-07-28 16:05 | P.PN ---
Subjective Patient is still started a breath and wheezy and rhonchorous on exam patient is coughing and is nauseous at this time 07/27/2017 Patient is feeling much better today, continue with antibiotics PT and OT evaluation possibility of discharge tomorrow 07/28/2017 Patient was having nausea vomiting Patient is complaining of fullness in the abdomen patient is found to have ileus, NG tube will be placed. Constitutional: Denied any fatigue denied any fever. Cardio vascular: denied any chest pain, palpitations Pulmonary: Mentioned above Neurologic denied any new focal deficits Objective - Vital Signs Vital signs: Vital Signs Temp 97.6 F 07/28/17 15:06 Pulse 102 H 07/28/17 15:06 Resp 18 07/28/17 15:06 BP 139/69 07/28/17 15:06 Pulse Ox 96 07/28/17 15:06 Intake & Output 07/27/17 07/28/17 07/28/17 18:59 06:59 18:59 Intake Total 805 300 180 Output Total 125 2300 Balance 680 300 -2120 Weight 70 kg Intake: Oral 805 300 180 Output: Gastric Drainage 2000 Urine 125 300 Other: Voiding Method Toilet Toilet Toilet # Voids 2 # Emeses 2 - Exam PHYSICAL EXAMINATION: GENERAL: The patient is alert and oriented x3, not in any acute distress. Well developed, well nourished. HEENT: Pupils are round and equally reacting to light. EOMI. No scleral icterus. No conjunctival pallor. Normocephalic, atraumatic. No pharyngeal erythema. No thyromegaly. CARDIOVASCULAR: S1 and S2 present. No murmurs, rubs, or gallops. PULMONARY: Patient does have rhonchus breath sounds bilaterally bronchophony egophony and a right lower and posterior lung [place] ABDOMEN: Soft, nontender, normoactive bowel sounds. No palpable organomegaly. There is distended but does have good bowel sounds MUSCULOSKELETAL: No joint swelling or deformity. EXTREMITIES: No cyanosis, clubbing, or pedal edema. NEUROLOGICAL: Gross neurological examination did not reveal any focal deficits. SKIN: No rashes. - Labs CBC & Chem 7: 07/27/17 05:45 07/28/17 13:35 Labs: Abnormal Lab Results - Last 24 Hours (Table) 07/28/17 Range/Units 13:35 Sodium 136 L (137-145) mmol/L Carbon Dioxide 31 H (22-30) mmol/L BUN 35 H (7-17) mg/dL Creatinine 1.42 H (0.52-1.04) mg/dL Glucose 138 H (74-99) mg/dL Microbiology - Last 24 Hours (Table) 07/25/17 13:24 Blood Culture - Preliminary Blood No Growth after 72 hours Assessment and Plan Plan: -Sepsis secondary to possible right lower lobe pneumonia, and did quite pneumonia patient is on Rocephin and azithromycin which will continued patient most probably has pneumococcal pneumonia. -Atrial fibrillation presently rate controlled patient was in A. fib with rapid and regular rate is monitor IV fluids are being discontinued at this time repeat chest x-ray showed improvement in pneumonic process -COPD with acute exacerbation patient will benefit from systemic steroids, a be a competent of pulmonary edema which is contributing to acute hypoxemia and pulmonology evaluated the patient - gastroesophageal reflux disease -Hyperlipidemia -Schizophrenia: Continue with home medications of olanzapine -History of CVA in the past -Possible ileus NG tube placement repeat basic metabolic profile, surgical consultation
[2017-07-28] MEDS ORDERED: BISACODYL 10 MG SUPP RECTAL STA (16:57)
[2017-07-28] MEDS: APIXABAN 2.5 MG TABLET PO SCH (17:01)
--- NOTE | 2017-07-28 18:28 | P.GSCN ---
History of Present Illness Consult date: 07/28/17 Reason for Consult: Nausea and vomiting History of present illness: The patient's a 82-year-old female who presented to the emergency department with generalized weakness and tiredness. She was also having a cough. She was admitted with sepsis possibly due to pneumonia. She also was diagnosed with new -onset atrial fibrillation. She is a very poor historian. She was complaining of vomiting earlier and a nasogastric tube was placed. The nurses said they got about 2 L of fluid off. The patient has felt better since that time according to her health and safety technician. The patient admits to a history of colon cancer however she is not sure how long ago this was. She does think it was done at [facility]. She's not sure if she's had any follow-up colonoscopies since that time. No family members are at bedside. She says she has not had a bowel movement in about a week. She is unsure if there is any blood in the stool or dark tarry stools. Review of Systems All systems: negative (Very poor historian) Past Medical History Past Medical History: Cancer, COPD, CVA/TIA, Hyperlipidemia, Hypertension Additional Past Medical History / Comment(s): colon & breast CA Last Myocardial Infarction Date:: unk History of Any Multi-Drug Resistant Organisms: None Reported Past Surgical History: Breast Surgery Additional Past Surgical History / Comment(s): double mastectomy Past Anesthesia/Blood Transfusion Reactions: No Reported Reaction Smoking Status: Former smoker - Past Family History Mother Additional Family Medical History / Comment(s): "back problems' Father History Unknown: Yes Medications and Allergies Home Medications Medication Instructions Recorded Confirmed Type Acetaminophen [Tylenol] 650 mg PO BID 07/25/17 07/25/17 History Apixaban [Eliquis] 5 mg PO BID@0800,199907/25/17 07/25/17 History Benzocaine/Menthol Lozeng [Cepacol 1 lozenge MUCOUS MEM Q4HR PRN 07/25/17 History lozenge] Calcium Carbonate/Vitamin D3 1 tab PO BID@0800,199907/25/17 07/25/17 History [Calcium 600-Vit D3 400 Tablet] Carboxymethylcellulose Sodium 1 drop BOTH EYES Q6H PRN 07/25/17 07/25/17 History [Refresh Tears] Docusate [Colace] 100 mg PO BID@0800,199907/25/17 07/25/17 History Fluticasone Nasal [place] [Flonase 1 spray EA NOSTRIL DAILY@0807/25/17 History Nasal [place]] Fluticasone/Salmeterol [Advair 1 puff INHALATION RT-BID@08,199907/25/1707/25 History 250-50 Diskus] Furosemide [Lasix] 40 mg PO DAILY@0800 07/25/17 07/25/17 History Gabapentin [Neurontin] 300 mg PO BID@0800,199907/25/17 07/25/17 History Hydrocortisone Acetate [Anucort-Hc] 25 mg RECTAL Q12H PRN 07/25/17 07/25/17 History Loratadine [Claritin] 10 mg PO DAILY PRN 07/25/17 07/25/17 History Multivit-Min/FA/Lycopen/Lutein 1 tab PO DAILY@0800 07/25/17 07/25/17 History [Centrum Silver Tablet] OLANZapine [ZyPREXA Zydis] 20 mg PO HS@199907/25/17 07/25/17 History Omeprazole [PriLOSEC] 20 mg PO BID@06,199907/25/17 07/25/17 History Polyethylene Glycol 3350 [Miralax] 17 gm PO DAILY PRN 07/25/17 07/25/17 History Promethazine [Phenergan] 12.5 mg PO Q12H PRN 07/25/17 07/25/17 History Simvastatin [Zocor] 20 mg PO HS@199907/25/17 07/25/17 History guaiFENesin [Mucinex] 600 mg PO BID@0800,199907/25/17 07/25/17 History guaiFENesin-DM 100-10MG/5ML 5 ml PO QID PRN 07/25/17 07/25/17 History [Robitussin DM] traMADol HCL [Ultram] 50 mg PO TID PRN 07/25/17 07/25/17 History Allergies Allergy/AdvReac Type Severity Reaction Status Date / Time No Known Allergies Allergy Verified 07/25/17 13:39 Surgical - Exam Osteopathic Statement: *. No significant issues noted on an osteopathic structural exam other than those noted in the History and Physical/Consult. Vital Signs Temp Pulse Resp BP Pulse Ox 99.0 F 120 H 20 129/95 94 L 07/25/17 12:59 07/25/17 12:59 07/25/17 12:59 07/25/17 12:59 07/25/17 12:59 - General well developed, well nourished, no distress - Eyes normal ocular movement - ENT NG tube is in place draining greenish fluid normal mucosa - Respiratory normal respiratory effort, other (Bilateral rhonchi) - Cardiovascular Rhythm: irregularly irregular - Abdomen Multiple surgical scars are noted on her abdomen Abdomen: soft, no tender, bowel sounds, no guarding, no rigid, no rebound, no distended - Rectum The rectal vault is empty except for a small amount of stool, may be tablespoon in amount. This is sent for Hemoccult Rectum: normal sphincter tone, no masses - Psychiatric oriented to person, no oriented to place, no memory intact Results - Labs 07/27/17 05:45 07/28/17 13:35 Abnormal Lab Results - Last 24 Hours (Table) 07/28/17 Range/Units 13:35 Sodium 136 L (137-145) mmol/L Carbon Dioxide 31 H (22-30) mmol/L BUN 35 H (7-17) mg/dL Creatinine 1.42 H (0.52-1.04) mg/dL Glucose 138 H (74-99) mg/dL Microbiology - Last 24 Hours (Table) 07/25/17 13:24 Blood Culture - Preliminary Blood No Growth after 72 hours Diabetes panel 07/28/17 Range/Units 13:35 Sodium 136 L (137-145) mmol/L Potassium 3.8 (3.5-5.1) mmol/L Chloride 98 (98-107) mmol/L Carbon Dioxide 31 H (22-30) mmol/L BUN 35 H (7-17) mg/dL Creatinine 1.42 H (0.52-1.04) mg/dL Glucose 138 H (74-99) mg/dL Calcium 10.0 (8.4-10.2) mg/dL Calcium panel 07/28/17 Range/Units 13:35 Calcium 10.0 (8.4-10.2) mg/dL Pituitary panel 07/28/17 Range/Units 13:35 Sodium 136 L (137-145) mmol/L Potassium 3.8 (3.5-5.1) mmol/L Chloride 98 (98-107) mmol/L Carbon Dioxide 31 H (22-30) mmol/L BUN 35 H (7-17) mg/dL Creatinine 1.42 H (0.52-1.04) mg/dL Glucose 138 H (74-99) mg/dL Calcium 10.0 (8.4-10.2) mg/dL Adrenal panel 07/28/17 Range/Units 13:35 Sodium 136 L (137-145) mmol/L Potassium 3.8 (3.5-5.1) mmol/L Chloride 98 (98-107) mmol/L Carbon Dioxide 31 H (22-30) mmol/L BUN 35 H (7-17) mg/dL Creatinine 1.42 H (0.52-1.04) mg/dL Glucose 138 H (74-99) mg/dL Calcium 10.0 (8.4-10.2) mg/dL Assessment and Plan (1) History of colon cancer Current Visit: Yes Status: Acute Code(s): Z85.038 - PERSONAL HISTORY OF MALIGNANT NEOPLASM OF LARGE INTESTINE SNOMED Code(s): 774145768 (2) History of breast cancer Current Visit: Yes Status: Acute Code(s): Z85.3 - PERSONAL HISTORY OF MALIGNANT NEOPLASM OF BREAST SNOMED Code(s): 649352152 (3) Nausea and vomiting Current Visit: Yes Status: Acute Code(s): R11.2 - NAUSEA WITH VOMITING, UNSPECIFIED SNOMED Code(s): 86485494 (4) New onset atrial fibrillation Current Visit: Yes Status: Acute Code(s): I48.91 - UNSPECIFIED ATRIAL FIBRILLATION SNOMED Code(s): 87293691 (5) Pneumonia Current Visit: Yes Status: Acute Code(s): J18.9 - PNEUMONIA, UNSPECIFIED ORGANISM SNOMED Code(s): 850346836 Plan: The patient may have an ileus due to her pneumonia and new-onset atrial fibrillation. At present I recommend continuing nasogastric tube. We'll try Dulcolax suppository to stimulate the colon from below. I'll order a CEA level. I will follow with you. Further recommendations to follow.
[2017-07-29] MEDS: DOCUSATE 100 MG CAP PO SCH ×3 (06:19→21:38)
[2017-07-29] MEDS: ATORVASTATIN 10 MG TAB PO SCH ×2 (06:19→21:37)
[2017-07-29] MEDS: OLANZapine ODT 10 MG TAB PO SCH ×2 (06:19→21:38)
[2017-07-29] MEDS: ACETAMINOPHEN TAB 325 MG TAB PO SCH ×2 (06:19→07:59)
[2017-07-29] MEDS: CALCIUM CARB-VIT D 500MG-200UN 1 EACH TAB PO SCH ×3 (06:19→21:37)
[2017-07-29] MEDS: GABAPENTIN 300 MG CAP PO SCH ×3 (06:19→21:38)
[2017-07-29 06:26] LABS: HCT 36.8 % (34.0-46.0); HGB 11.5 gm/dL (11.4-16.0); MCH 28.9 pg (25.0-35.0); MCHC 31.3 g/dL (31.0-37.0); MCV 92.3 fL (80.0-100.0); Mean Platelet Volume 7.8; Platelet Count 267 k/uL (150-450); RBC 3.98 m/uL (3.80-5.40); RDW 15.4 % (11.5-15.5); WBC 7.2 k/uL (3.8-10.6)
[2017-07-29] MEDS: PIPERACILLIN-TAZOBACTAM 3.375 GM in DEXTROSE/WATER 1 50ML.BAG IVPB SCH ×3 (06:26→17:35)
[2017-07-29 06:59] LABS: Calcium 9.6 mg/dL (8.4-10.2); Potassium 3.6 mmol/L (3.5-5.1)
[2017-07-29] MEDS: MULTIVITAMINS, THERA 1 EACH TAB PO SCH (07:59)
[2017-07-29] MEDS: IPRATROPIUM-ALBUTEROL 3 ML NEB INHALATION SCH ×4 (07:59→20:50)
[2017-07-29] MEDS: APIXABAN 2.5 MG TABLET PO SCH (08:11)
--- NOTE | 2017-07-29 14:10 | P.PN ---
Subjective Progress Note Date: 07/29/17 Principal diagnosis: Consult dated 07/28/2017 This is an 82-year-old female that we saw in consultation. She has a history of breast and colon cancer as well as hypertension. She apparently lives at a [facility] home and is seen by a visiting physician by the name of Dr. Beth. She had weakness. She also had cough and shortness of breath. Not producing any phlegm. She had a temperature elevation of 101.2. She also was found have atrial fibrillation with rapid ventricular response with a heart rate about 1 20 bpm. She appears to be a little short of breath even at the current time. Chest x-ray initially shows some patchy infiltrates in the right midlung and right lower lobe potentially consistent with pneumonia. Again her symptoms could be consistent with heart failure and/or pneumonia. Anyway she is doing a bit better not a lot. Not a particularly good historian. The patient is seen again today 07/29/2017 in follow-up on the selective care unit. She is awake and alert in no acute distress. She is still somewhat of a poor historian. She does deny any worsening shortness of breath, cough or congestion. Maintaining O2 saturations in the upper 90s on 2 L/m per nasal cannula. She's been hemodynamically stable. Febrile the past 24 hours. She is currently on Zosyn. She remains in atrial fibrillation with a better controlled ventricular response. Naso Gastric tube remains in place. She was seen by surgical services were continuing to observe the patient. The patient states she is passing some gas but no bowel movement still. Ilene less distended today. After initial placement of the nasogastric tube was 2 L removed. Objective - Vital Signs Vital signs: Vital Signs Temp 98 F 07/29/17 08:00 Pulse 88 07/29/17 12:17 Resp 19 07/29/17 10:59 BP 121/62 07/29/17 10:59 Pulse Ox 97 07/29/17 10:59 Intake & Output 07/28/17 07/29/17 07/29/17 18:59 06:59 18:59 Intake Total 180 50 50 Output Total 2300 1250 500 Balance -2120 -1200 -450 Weight 68 kg Intake: Intake, IV Titration 50 50 Amount Piperacillin-Tazobactam 3 50 50 .375 gm In Dextrose/Water 1 50ml.bag @ 12.5 mls/hr IVPB Q8HR [facility] Rx#: [id number] Oral 180 Output: Gastric Drainage 1999 1000 500 Urine 300 250 Other: Voiding Method Toilet Bedside Commode Bedside Commode # Emeses 2 - Exam Conversational dyspnea. Oriented 2. HEENT examination is grossly unremarkable. Mucous membranes are moist. No oral lesions. Neck supple. Full range of motion. No adenopathy thyromegaly or neck vein distention. Cardiovascular examination reveals a irregular rhythm. Heart rate less than 100. S1-S2 normal. No murmur. Lungs reveal few scattered rhonchi. Some bibasilar crackles. No wheezes. Breath sounds equal bilaterally. Abdomen soft bowel sounds are heard. No masses or tenderness. Extremities are intact. No cyanosis clubbing. Mild edema. Skin is without rash or lesion. Neurologic examination is difficult to perform. - Labs CBC & Chem 7: 07/29/17 06:07 07/29/17 06:07 Labs: Abnormal Lab Results - Last 24 Hours (Table) 07/28/17 07/28/17 07/29/17 Range/Units 13:35 17:00 06:07 Sodium 136 L (137-145) mmol/L Carbon Dioxide 31 H 36 H (22-30) mmol/L BUN 35 H 35 H (7-17) mg/dL Creatinine 1.42 H 1.50 H (0.52-1.04) mg/dL Glucose 138 H (74-99) mg/dL Stool Occult Blood Positive H (Negative) Microbiology - Last 24 Hours (Table) 07/25/17 13:24 Blood Culture - Preliminary Blood No Growth after 72 hours Assessment and Plan Assessment: (1) Hypertension Current Visit: Yes Status: Acute Code(s): I10 - ESSENTIAL (PRIMARY) HYPERTENSION SNOMED Code(s): 60990514 (2) Hyperlipidemia Current Visit: Yes Status: Acute Code(s): E78.5 - HYPERLIPIDEMIA, UNSPECIFIED SNOMED Code(s): 07331849 (3) Colon cancer Current Visit: Yes Status: Acute Code(s): C18.9 - MALIGNANT NEOPLASM OF COLON, UNSPECIFIED SNOMED Code(s): 443794005 (4) Breast cancer Current Visit: Yes Status: Acute Code(s): C50.919 - MALIGNANT NEOPLASM OF UNSP SITE OF UNSPECIFIED FEMALE BREAST SNOMED Code(s): 890039608 (5) Dehydration Current Visit: Yes Status: Acute Code(s): E86.0 - DEHYDRATION SNOMED Code( s): 52316489 (6) New onset atrial fibrillation Current Visit: Yes Status: Acute Code(s): I48.91 - UNSPECIFIED ATRIAL FIBRILLATION SNOMED Code(s): 76296983 (7) Pneumonia Current Visit: Yes Status: Acute Code(s): J18.9 - PNEUMONIA, UNSPECIFIED ORGANISM SNOMED Code(s): 970729118 (8) Renal insufficiency Current Visit: Yes Status: Acute Code(s): N28.9 - DISORDER OF KIDNEY AND URETER, UNSPECIFIED SNOMED Code(s): 346569669 Plan: The patient was seen and evaluated by Dr. Kessler. Her only stable from the pulmonary standpoint. We'll continue bronchodilators and Zosyn. We'll await further input from surgical services. Will increase her activity as tolerated. We'll continue to follow. I, the cosigning physician, have performed a history and physical examination on the patient. Lung sounds he scattered rhonchi. Crackles in the posterior bases. Maintaining good O2 saturations in the 90s on 2 L/m per nasal cannula. I have discussed the assessment and plan of care with my nurse practitioner, Marilyn Rodriguez. I attest the above documented note as dictated by her.
--- NOTE | 2017-07-29 14:19 | P.PN ---
Subjective Progress Note Date: 07/29/17 Principal diagnosis: Abdominal distention rule out bowel obstruction The patient is seen on rounds. She appears more alert than yesterday however is still confused. She doesn't know where she is at other than being at a hospital. She doesn't recall being seen yesterday. Denies any abdominal pain. Doesn't know if she had a suppository given yesterday. Doesn't know if she had a bowel movement yesterday. Objective - Vital Signs Vital signs: Vital Signs Temp 98 F 07/29/17 08:00 Pulse 88 07/29/17 12:17 Resp 19 07/29/17 10:59 BP 121/62 07/29/17 10:59 Pulse Ox 97 07/29/17 10:59 Intake & Output 07/28/17 07/29/17 07/29/17 18:59 06:59 18:59 Intake Total 180 50 50 Output Total 2300 1250 500 Balance -2120 -1200 -450 Weight 68 kg Intake: Intake, IV Titration 50 50 Amount Piperacillin-Tazobactam 3 50 50 .375 gm In Dextrose/Water 1 50ml.bag @ 12.5 mls/hr IVPB Q8HR [facility] Rx#: [id number] Oral 180 Output: Gastric Drainage 2000 1000 500 Urine 300 250 Other: Voiding Method Toilet Bedside Commode Bedside Commode # Emeses 2 - Constitutional General appearance: Present: cooperative, no acute distress - Respiratory Respiratory: bilateral: rhonchi (Faint rhonchi bilaterally), negative: wheezing - Gastrointestinal General gastrointestinal: Present: distended (Mildly distended and tympanitic). Absent: tenderness - Labs CBC & Chem 7: 07/29/17 06:07 07/29/17 06:07 Labs: Abnormal Lab Results - Last 24 Hours (Table) 07/28/17 07/29/17 Range/Units 17:00 06:07 Carbon Dioxide 36 H (22-30) mmol/L BUN 35 H (7-17) mg/dL Creatinine 1.50 H (0.52-1.04) mg/dL Stool Occult Blood Positive H (Negative) Microbiology - Last 24 Hours (Table) 07/25/17 13:24 Blood Culture - Preliminary Blood No Growth after 72 hours Assessment and Plan (1) History of colon cancer Current Visit: Yes Status: Acute Code(s): Z85.038 - PERSONAL HISTORY OF MALIGNANT NEOPLASM OF LARGE INTESTINE SNOMED Code(s): 339969255 (2) History of breast cancer Current Visit: Yes Status: Acute Code(s): Z85.3 - PERSONAL HISTORY OF MALIGNANT NEOPLASM OF BREAST SNOMED Code(s): 646989444 (3) Nausea and vomiting Current Visit: Yes Status: Acute Code(s): R11.2 - NAUSEA WITH VOMITING, UNSPECIFIED SNOMED Code(s): 25609380 (4) New onset atrial fibrillation Current Visit: Yes Status: Acute Code(s): I48.91 - UNSPECIFIED ATRIAL FIBRILLATION SNOMED Code(s): 72890732 (5) Pneumonia Current Visit: Yes Status: Acute Code(s): J18.9 - PNEUMONIA, UNSPECIFIED ORGANISM SNOMED Code(s): 638925519 (6) Heme + stool Current Visit: Yes Status: Acute Code(s): R19.5 - OTHER FECAL ABNORMALITIES SNOMED Code(s): 68365837 Plan: She has quite a large NG output. We'll continue the NG tube and supportive care. We'll give her enema to try to stimulate the colon from below. His CEA level was ordered however is pending. Repeat abdominal series in the morning. Further recommendations to follow.
--- NOTE | 2017-07-29 17:21 | PN ---
PROGRESS NOTE DATE OF SERVICE: 07/29/2017 The patient is sitting up in bed. She is confused, which according to the records, is her baseline. Claims that she was told that she has thrush and that needs to be treated. PHYSICAL EXAMINATION: Vital signs temperature is 98, pulse 88, respiration 19, blood pressure 121/62, O2 saturation 97%. HEENT patient is awake, alert, in no acute distress. Oral mucosa is fair. Pharynx is clean. NECK: Supple. No goiter or lymphadenopathy. JVD is negative. No carotid bruit heard. Lungs are clear to auscultate. No rales, rhonchi, or wheezes. Heart is regular rate and rhythm without any murmurs gallop rhythm. ABDOMEN: Soft, nontender, nondistended. Abdomen is soft with mild diffuse tenderness. Bowel sounds are positive. EXTREMITIES: No edema, clubbing, cyanosis. Neurological examination: Cranial nerves 2-12 grossly intact. No gross motor or sensory deficit. LAB: CBC, white blood count of 7.2, hemoglobin 11.5, hematocrit 36.8, and platelet count of 267. Chemical profile sodium 140, potassium 3.6, chloride 99, bicarb 36, BUN 35, creatinine 1.50. ASSESSMENT: 1. Sepsis secondary to right lower lobe pneumonia. The patient remains on IV Rocephin and azithromycin. 2. Atrial fibrillation which is rate controlled now. Patient remains on IV fluids. 3. Acute exacerbation chronic obstructive pulmonary disease. The patient remains on systemic steroids and nebulizer treatment. Repeat chest x-ray is done which is negative. 4. Gastroesophageal reflux disease, clinically stable. 5. Hyperlipidemia. 6. Schizophrenia. 7. Cerebrovascular accident in the past. The patient still has NG tube down. Surgery is following. We will wait for surgical recommendations for the removal of the NG tube. MMODL / IJN: [id number] /
[2017-07-29] MEDS: NYSTATIN 100,000 UNIT/ML SUSP 500,000 UNIT/5 ML CUP PO SCH (21:37)
[2017-07-30] MEDS: ACETAMINOPHEN TAB 325 MG TAB PO SCH ×3 (00:44→19:46)
[2017-07-30] MEDS: PIPERACILLIN-TAZOBACTAM 3.375 GM in DEXTROSE/WATER 1 50ML.BAG IVPB SCH ×4 (00:45→23:15)
[2017-07-30] MEDS ORDERED: LORazepam 2 MG/ML INJ IV PRN ×3 (01:57→02:00)
[2017-07-30] MEDS ORDERED: HALOPERIDOL LACTATE 5 MG/ML 1 ML VIAL IM PRN (01:59)
--- NOTE | 2017-07-30 07:29 | XR ---
EXAMINATION TYPE: XR abdomen 2V DATE OF EXAM: 07/30/2017 COMPARISON: 07/28/2017 HISTORY: Ileus TECHNIQUE: 2 views FINDINGS: There are some dilated air-filled loops of small bowel in the mid abdomen. There is no sign of free air. There is infiltrate and pleural thickening at the lung bases. There are surgical clips in the right mid abdomen. IMPRESSION: There is evidence for a significant small bowel ileus or mechanical small bowel obstructi on without significant change compared to recent exam. Pleural effusions and basilar pulmonary infilt rates.
[2017-07-30] MEDS: NYSTATIN 100,000 UNIT/ML SUSP 500,000 UNIT/5 ML CUP PO SCH ×4 (08:03→19:47)
[2017-07-30] MEDS: IPRATROPIUM-ALBUTEROL 3 ML NEB INHALATION SCH ×4 (08:10→19:56)
[2017-07-30] MEDS: CALCIUM CARB-VIT D 500MG-200UN 1 EACH TAB PO SCH ×2 (09:36→19:46)
[2017-07-30] MEDS: DOCUSATE 100 MG CAP PO SCH ×2 (09:36→19:46)
[2017-07-30] MEDS: GABAPENTIN 300 MG CAP PO SCH ×2 (09:37→19:46)
[2017-07-30] MEDS: MULTIVITAMINS, THERA 1 EACH TAB PO SCH (09:37)
--- NOTE | 2017-07-30 12:41 | P.PN ---
Subjective Progress Note Date: 07/30/17 Principal diagnosis: Fever, shortness of breath Progress note dated 07/30/2017 The patient seems be doing better. Much less short of breath. Her chest x- rays in my opinion really show mostly atelectasis as opposed to infiltrates. The patient does have an active intra-abdominal process which I believe his creatinine the abnormality seen on x-ray. The patient's breathing is much improved. She is on 2 L. Saturations are in the upper 90s. He does have a history of atrial fibrillation. She was also found to have rapid ventricular response. This been treated. Her abdominal examination and abdominal x-ray still show evidence of obstruction. From the pulmonary standpoint again, she is doing much better. Her vital signs are much more stable. She's afebrile. Objective - Vital Signs Vital signs: Vital Signs Temp 97.4 F L 07/30/17 12:00 Pulse 100 07/30/17 12:00 Resp 18 07/30/17 12:00 BP 145/66 07/30/17 12:00 Pulse Ox 93 L 07/30/17 12:00 Intake & Output 07/29/17 07/30/17 07/30/17 18:59 06:59 18:59 Intake Total 50 50 Output Total 900 400 Balance -850 50 -400 Weight 77.5 kg Intake: Intake, IV Titration 50 50 Amount Piperacillin-Tazobactam 3 50 50 .375 gm In Dextrose/Water 1 50ml.bag @ 12.5 mls/hr IVPB Q8HR [facility] Rx#: [id number] Output: Gastric Drainage 500 Urine 400 400 Other: Voiding Method Bedside Commode Bedside Commode Bedside Commode # Voids 2 # Bowel Movements 2 - Exam No acute distress, oriented 3. HEENT examination is grossly unremarkable. Mucous membranes are moist. No oral lesions. Neck supple. Full range of motion. No adenopathy thyromegaly or neck vein distention. Cardiovascular examination reveals an irregular rhythm and rate. The patient appears to be in atrial fibrillation. Heart rate less than 100. S1-S2 normal. No distinct murmur noted. Lungs reveal mostly clear breath sounds. A few scattered rhonchi. No wheezes or crackles. Abdomen mildly distended. Some bowel sounds are noted. Mild tenderness on palpation. Does not have a surgical abdomen and my opinion. Extremities are intact. No cyanosis or clubbing. There is mild edema. Skin is without rash or lesion. Neurologic examination is brief but nonfocal. - Labs CBC & Chem 7: 07/29/17 06:07 07/29/17 06:07 Labs: Microbiology - Last 24 Hours (Table) 07/25/17 13:24 Blood Culture - Preliminary Blood No Growth after 96 hours Assessment and Plan (1) Hypertension Current Visit: Yes Status: Acute Code(s): I10 - ESSENTIAL (PRIMARY) HYPERTENSION SNOMED Code(s): 36703168 (2) Hyperlipidemia Current Visit: Yes Status: Acute Code(s): E78.5 - HYPERLIPIDEMIA, UNSPECIFIED SNOMED Code(s): 27727199 (3) Colon cancer Current Visit: Yes Status: Acute Code(s): C18.9 - MALIGNANT NEOPLASM OF COLON, UNSPECIFIED SNOMED Code(s): 515955205 (4) Breast cancer Current Visit: Yes Status: Acute Code(s): C50.919 - MALIGNANT NEOPLASM OF UNSP SITE OF UNSPECIFIED FEMALE BREAST SNOMED Code(s): 952110440 (5) Dehydration Current Visit: Yes Status: Acute Code(s): E86.0 - DEHYDRATION SNOMED Code( s): 09000427 (6) New onset atrial fibrillation Current Visit: Yes Status: Acute Code(s): I48.91 - UNSPECIFIED ATRIAL FIBRILLATION SNOMED Code(s): 67288381 (7) Pneumonia Current Visit: Yes Status: Acute Code(s): J18.9 - PNEUMONIA, UNSPECIFIED ORGANISM SNOMED Code(s): 917427213 (8) Renal insufficiency Current Visit: Yes Status: Acute Code(s): N28.9 - DISORDER OF KIDNEY AND URETER, UNSPECIFIED SNOMED Code(s): 612391923 Plan: Plan dated 07/28/2017 Very hard to get any good history from this patient. She is seen by a visiting physician. We'll review the x-rays labs and medications. It would be appropriate to put her on updrafts. Antibiotics are also appropriate. We'll continue to follow. We'll check a BNP. He may be a component of fluid overload. X-rays are improving though. Plan dated 07/30/2017 The patient seemed be doing relatively well. Labs x-rays a medications are reviewed. Pulmonary status is much improved. The patient's x-ray abnormalities likely related to atelectasis and not pneumonia. We'll continue to follow. Time with Patient: Less than 30
--- NOTE | 2017-07-30 12:55 | P.PN ---
Subjective Progress Note Date: 07/30/17 Principal diagnosis: Abdominal distention rule out bowel obstruction The patient is seen on rounds. She is alert and pleasant. No distress. She is oriented to person. Last night she did remove her nasogastric tube and that was not reinserted. At present she denies any abdominal pain or nausea Objective - Vital Signs Vital signs: Vital Signs Temp 97.4 F L 07/30/17 12:00 Pulse 100 07/30/17 12:00 Resp 18 07/30/17 12:00 BP 145/66 07/30/17 12:00 Pulse Ox 93 L 07/30/17 12:00 Intake & Output 07/29/17 07/30/17 07/30/17 18:59 06:59 18:59 Intake Total 50 50 Output Total 900 400 Balance -850 50 -400 Weight 77.5 kg Intake: Intake, IV Titration 50 50 Amount Piperacillin-Tazobactam 3 50 50 .375 gm In Dextrose/Water 1 50ml.bag @ 12.5 mls/hr IVPB Q8HR [facility] Rx#: [id number] Output: Gastric Drainage 500 Urine 400 400 Other: Voiding Method Bedside Commode Bedside Commode Bedside Commode # Voids 2 # Bowel Movements 2 - Constitutional General appearance: Present: cooperative, no acute distress - Respiratory Respiratory: bilateral: rhonchi - Cardiovascular Rhythm: irregularly irregular - Gastrointestinal Gastrointestinal Comment(s): The patient has no peritoneal signs. She seems less tender than a couple of days ago. General gastrointestinal: Present: distended, normal bowel sounds. Absent: tenderness - Labs CBC & Chem 7: 07/29/17 06:07 07/29/17 06:07 Labs: Microbiology - Last 24 Hours (Table) 07/25/17 13:24 Blood Culture - Preliminary Blood No Growth after 96 hours - Imaging and Cardiology Abdominal x-ray: report reviewed, image reviewed Assessment and Plan (1) History of colon cancer Current Visit: Yes Status: Acute Code(s): Z85.038 - PERSONAL HISTORY OF MALIGNANT NEOPLASM OF LARGE INTESTINE SNOMED Code(s): 856913038 (2) History of breast cancer Current Visit: Yes Status: Acute Code(s): Z85.3 - PERSONAL HISTORY OF MALIGNANT NEOPLASM OF BREAST SNOMED Code(s): 129758242 (3) Nausea and vomiting Current Visit: Yes Status: Acute Code(s): R11.2 - NAUSEA WITH VOMITING, UNSPECIFIED SNOMED Code(s): 46563403 (4) New onset atrial fibrillation Current Visit: Yes Status: Acute Code(s): I48.91 - UNSPECIFIED ATRIAL FIBRILLATION SNOMED Code(s): 07576798 (5) Pneumonia Current Visit: Yes Status: Acute Code(s): J18.9 - PNEUMONIA, UNSPECIFIED ORGANISM SNOMED Code(s): 382161488 (6) Heme + stool Current Visit: Yes Status: Acute Code(s): R19.5 - OTHER FECAL ABNORMALITIES SNOMED Code(s): 51277897 Plan: The patient either has a severe ileus due to her underlying medical comorbidities or a bowel obstruction. She does have a history of colon cancer and I discussed this with the patient's sister on the phone. The cancer was about 10 or 12 years ago. The sister think she's had a colonoscopy done since that time but does not know when that was performed with the patient's sister is not aware of her normal day-to-day activities. At this point we'll continue her nothing by mouth. If she develops recurrent emesis or we need to replace the NG tube I'll get a computed tomography scan of the abdomen. At this point that surgical candidate so we will continue medical air and close observation
[2017-07-30] MEDS: guaiFENesin-DM 100-10MG/5ML 10 ML CUP PO PRN (14:20)
[2017-07-30] MEDS: LORazepam 2 MG/ML INJ IV PRN (14:21)
[2017-07-30 16:12] LABS: Calcium 9.4 mg/dL (8.4-10.2); Potassium 3.3 mmol/L (3.5-5.1)
--- NOTE | 2017-07-30 16:26 | PN ---
PROGRESS NOTE DATE OF SERVICE: 07/30/2017 Patient is sitting up in bed. She is alert, but pleasantly alert. NG tube has been removed by the patient and was not reinserted by surgery. Vital signs temperature of 97.4, pulse 100, respiration 18, blood pressure 145/66. HEENT: Atraumatic, normocephalic. Pupils equal and reactive to light. Extraocular movements intact. Buccal mucosa is fair. Neck is supple. No goiter or lymphadenopathy. JVD is negative. No carotid bruit heard. Lungs decreased breath sounds bilaterally, but clear to auscultate. Heart is irregularly irregular without any murmurs or gallop rhythm. Abdomen is soft, mildly distended, nontender. Extremities: No edema, clubbing or cyanosis. Skin is without rashes or pigmentation. Neurological examination: No gross motor or sensory deficit. Cranial nerves 2-12 grossly intact. Lymphatics no lymph nodes are palpable. Skin without rashes or pigmentation. Musculoskeletal: The patient moves all 4 extremities. No joint deformities or tenderness. No axillary or cervical lymph nodes are palpable. Musculoskeletal: Patient moves all 4 extremities. LAB: CBC, white blood count of 7.2, hemoglobin of 11.5, hematocrit 36.8, and platelet count of 267. Chemical profile sodium 140, potassium 3.6, chloride 99, bicarb 36, BUN 35, creatinine 1.5. ASSESSMENT: 1. Sepsis secondary to right lower lobe pneumonia. The patient remains on IV Rocephin and azithromycin. Pulmonary is following. 2. Atrial fibrillation with controlled ventricular response. The patient is on oral medication. Heart rate is fairly controlled. 3. Acute exacerbation chronic obstructive pulmonary disease. The patient remains with bronchodilator nebulizer treatments and also systemic steroids, tolerating well without any complications. Repeat chest x-ray shows somewhat improvement again. Again, Pulmonary is following and await further recommendations about continuing IV antibiotics and about steroids. 4. Gastroesophageal reflux disease, clinically stable. 5. Hyperlipidemia. 6. Schizophrenia. 7. Cerebrovascular accident in the past. 8. Patient's PEG tube was pulled out by the patient yesterday and has stayed out. Patient improved with above treatment. 9. Acute kidney injury, the patient's creatinine is slowly creeping up. We will check and start on IV fluids. 10.Positive stool occult blood, only 1 reading is available. Will continue to monitor. MMODL / IJN: [id number] /
[2017-07-30 17:42] LABS: Glucose,Whole Blood 93 mg/dL (75-99)
[2017-07-30] MEDS: OLANZapine ODT 10 MG TAB PO SCH (19:46)
[2017-07-30] MEDS: ATORVASTATIN 10 MG TAB PO SCH (19:46)
[2017-07-31] MEDS: LORazepam 2 MG/ML INJ IV PRN (03:51)
[2017-07-31 06:21] LABS: Basophils % (A) 1 %; Eosinophils # (A) 0.5 k/uL (0-0.7); Eosinophils % (A) 6 %; HCT 43.5 % (34.0-46.0); HGB 13.5 gm/dL (11.4-16.0); Lymphocytes # (A) 0.7 k/uL (1.0-4.8); Lymphocytes % (A) 8 %; MCV 93.6 fL (80.0-100.0); Mean Platelet Volume 7.1; Monocytes # (A) 0.6 k/uL (0-1.0); Monocytes % (A) 7 %; Neutrophils # (A) 6.7 k/uL (1.3-7.7); Neutrophils % (A) 77 %; Platelet Count 324 k/uL (150-450); RBC 4.65 m/uL (3.80-5.40); WBC 8.6 k/uL (3.8-10.6)
[2017-07-31] MEDS: IPRATROPIUM-ALBUTEROL 3 ML NEB INHALATION SCH ×4 (07:34→19:40)
[2017-07-31] MEDS: MULTIVITAMINS, THERA 1 EACH TAB PO SCH (09:20)
[2017-07-31] MEDS: GABAPENTIN 300 MG CAP PO SCH ×2 (09:21→20:33)
[2017-07-31] MEDS: NYSTATIN 100,000 UNIT/ML SUSP 500,000 UNIT/5 ML CUP PO SCH ×4 (09:21→20:34)
[2017-07-31] MEDS: DOCUSATE 100 MG CAP PO SCH ×2 (09:21→20:33)
[2017-07-31] MEDS: CALCIUM CARB-VIT D 500MG-200UN 1 EACH TAB PO SCH ×2 (09:21→20:33)
[2017-07-31] MEDS: PIPERACILLIN-TAZOBACTAM 3.375 GM in DEXTROSE/WATER 1 50ML.BAG IVPB SCH ×3 (09:24→23:10)
[2017-07-31] MEDS: ACETAMINOPHEN TAB 325 MG TAB PO SCH ×2 (09:24→20:37)
--- NOTE | 2017-07-31 09:32 | CONS ---
CONSULTATION DATE OF CONSULTATION: 07/30/2017. PURPOSE FOR CONSULTATION: Evaluate for mental status change. HISTORY OF PRESENT ILLNESS: The patient is an 82-year-old female. She was admitted to the medical floor for generalized weakness. She was diagnosed with pneumonia. She also has been found to have a bowel obstruction with ileus. She has an apparent diagnosis of schizophrenia for which she has been on Zyprexa 20 mg at bedtime as her only psychotropic medication. Apparently, the a Zyprexa has been on hold, though she received 1 dose yesterday. Nursing notes that she has had some episodes of confusion and disorientation. My understanding is that overall she has been functioning fairly well, though she does have some episodes where she is a little more disoriented with periods with less. She has maintained a good mood. She has not been distressed. She has been cooperative with care. MENTAL STATUS: Patient was in bed lying down. She gave good eye contact. She spoke with a soft voice. She answered questions appropriately. She did not say a lot. Some of her answers were a little vague. When I asked her oriented question she could tell me she was in [facility]. She thought it was Monday. She knew she was in the hospital for pneumonia. When I asked her what month it was, she had trouble understanding the question. She repeated this a few times that she thought it was Monday. When I gave her some examples of months, she just repeated the month. She had a calm manner. She was not distressed. ASSESSMENT: I will continue the current diagnosis. Apparently, the patient has some delirium related to her sepsis. She seems to be managing reasonably well. I will reduce her Zyprexa to 10 mg at bedtime. She may continue with some ups and downs in orientation through the early course of her treatment for infection. I will continue to follow. MMODL / IJN: [id number] /
--- NOTE | 2017-07-31 09:33 | XR ---
EXAMINATION TYPE: XR abdomen 2V DATE OF EXAM: 07/31/2017 COMPARISON: Yesterday HISTORY: Follow-up ileus Abdominal pain Follow-up ileus Technique 2 views FINDINGS: There are multiple gas-filled dilated loops of small bowel in the abdomen. There are surgic al clips in the right mid abdomen. There is no sign of free air. There is patchy atelectasis at the l juan josé bases. IMPRESSION: Numerous dilated small bowel loops consistent with mechanical obstruction or small bowel ileus. No change compared to yesterday.
--- NOTE | 2017-07-31 11:37 | P.PN ---
Subjective Progress Note Date: 07/31/17 Principal diagnosis: Abdominal distention rule out bowel obstruction The patient is seen on rounds. She is alert but confused. When asked how she feels she says she just doesn't feel good. She denies nausea or abdominal pain. She's not sure if she's passed gas or had a bowel movement. Nursing denies any sort of vomiting or bowel movement Objective - Vital Signs Vital signs: Vital Signs Temp 97.1 F L 07/31/17 08:00 Pulse 118 H 07/31/17 08:00 Resp 20 07/31/17 08:00 BP 158/113 07/31/17 08:00 Pulse Ox 93 L 07/31/17 08:00 Intake & Output 07/30/17 07/31/17 07/31/17 18:59 06:59 18:59 Intake Total 130 Output Total 400 500 Balance -400 130 -500 Weight 77.5 kg 68 kg Intake: IV 80 sodium chloride 0.9% 1, 80 000 ml @10ml/hr IV Intake, IV Titration 50 Amount Piperacillin-Tazobactam 3 50 .375 gm In Dextrose/Water 1 50ml.bag @ 12.5 mls/hr IVPB Q8HR [facility] Rx#: [id number] Output: Urine 400 500 Other: Voiding Method Bedside Commode Bedside Commode - Constitutional General appearance: Present: cooperative, no acute distress - Respiratory Respiratory: bilateral: rhonchi (Which seems to be clearing up) - Gastrointestinal General gastrointestinal: Present: decreased bowel sounds, distended, tenderness (Mildly mild right upper quadrant without peritoneal signs) - Labs CBC & Chem 7: 07/31/17 05:35 07/30/17 15:37 Labs: Abnormal Lab Results - Last 24 Hours (Table) 07/30/17 07/31/17 Range/Units 15:37 05:35 Lymphocytes # 0.7 L (1.0-4.8) k/uL Potassium 3.3 L (3.5-5.1) mmol/L Carbon Dioxide 34 H (22-30) mmol/L BUN 32 H (7-17) mg/dL Creatinine 1.60 H (0.52-1.04) mg/dL Microbiology - Last 24 Hours (Table) 07/25/17 13:24 Blood Culture - Preliminary Blood No Growth after 120 hours - Imaging and Cardiology Abdominal x-ray: report reviewed, image reviewed Assessment and Plan (1) History of colon cancer Current Visit: Yes Status: Acute Code(s): Z85.038 - PERSONAL HISTORY OF MALIGNANT NEOPLASM OF LARGE INTESTINE SNOMED Code(s): 063005149 (2) History of breast cancer Current Visit: Yes Status: Acute Code(s): Z85.3 - PERSONAL HISTORY OF MALIGNANT NEOPLASM OF BREAST SNOMED Code(s): 224753263 (3) Nausea and vomiting Current Visit: Yes Status: Acute Code(s): R11.2 - NAUSEA WITH VOMITING, UNSPECIFIED SNOMED Code(s): 59370620 (4) New onset atrial fibrillation Current Visit: Yes Status: Acute Code(s): I48.91 - UNSPECIFIED ATRIAL FIBRILLATION SNOMED Code(s): 18181062 (5) Pneumonia Current Visit: Yes Status: Acute Code(s): J18.9 - PNEUMONIA, UNSPECIFIED ORGANISM SNOMED Code(s): 371868678 (6) Heme + stool Current Visit: Yes Status: Acute Code(s): R19.5 - OTHER FECAL ABNORMALITIES SNOMED Code(s): 76460964 Plan: On her abdominal series there is air into the rectum however the small bowel loops are still dilated. We'll get a computed tomography scan with oral contrast to rule out any obstruction. Further recommendations to follow.
--- NOTE | 2017-07-31 11:45 | P.PN ---
Subjective Progress Note Date: 07/31/17 Principal diagnosis: Fever, shortness of breath Progress note dated 07/30/2017 The patient seems be doing better. Much less short of breath. Her chest x- rays in my opinion really show mostly atelectasis as opposed to infiltrates. The patient does have an active intra-abdominal process which I believe his creatinine the abnormality seen on x-ray. The patient's breathing is much improved. She is on 2 L. Saturations are in the upper 90s. He does have a history of atrial fibrillation. She was also found to have rapid ventricular response. This been treated. Her abdominal examination and abdominal x-ray still show evidence of obstruction. From the pulmonary standpoint again, she is doing much better. Her vital signs are much more stable. She's afebrile. Progress note dated 07/31/2017 This is an 82-year-old female with a history of pneumonia, renal insufficiency, hypertension, hyperlipidemia, colon cancer, breast cancer, and new onset atrial fibrillation. On the pulmonary standpoint, the patient's doing well. Chest x- rays mostly show atelectasis and not infiltrates per se. The patient's breathing is much improved. She's only on 2 L nasal cannula. Saturations are in the mid 90s. Atrial fibrillation is well controlled. Still with a intra- abdominal process that surgery is dealing with. Their recommendation is to be conservative with this patient. Again from the pulmonary standpoint doing much better. Objective - Vital Signs Vital signs: Vital Signs Temp 97.1 F L 07/31/17 08:00 Pulse 118 H 07/31/17 08:00 Resp 20 07/31/17 08:00 BP 158/113 07/31/17 08:00 Pulse Ox 93 L 07/31/17 08:00 Intake & Output 07/30/17 07/31/17 07/31/17 18:59 06:59 18:59 Intake Total 130 Output Total 400 500 Balance -400 130 -500 Weight 77.5 kg 68 kg Intake: IV 80 sodium chloride 0.9% 1, 80 000 ml @10ml/hr IV Intake, IV Titration 50 Amount Piperacillin-Tazobactam 3 50 .375 gm In Dextrose/Water 1 50ml.bag @ 12.5 mls/hr IVPB Q8HR [facility] Rx#: [id number] Output: Urine 400 500 Other: Voiding Method Bedside Commode Bedside Commode - Exam No acute distress, oriented 3. HEENT examination is grossly unremarkable. Mucous membranes are moist. No oral lesions. Neck supple. Full range of motion. No adenopathy thyromegaly or neck vein distention. Cardiovascular examination reveals an irregular rhythm and rate. The patient appears to be in atrial fibrillation. Heart rate less than 100. S1-S2 normal. No distinct murmur noted. Lungs reveal mostly clear breath sounds. A few scattered rhonchi. No wheezes or crackles. Abdomen mildly distended. Some bowel sounds are noted. Mild tenderness on palpation. Does not have a surgical abdomen and my opinion. Extremities are intact. No cyanosis or clubbing. There is mild edema. Skin is without rash or lesion. Neurologic examination is brief but nonfocal. - Labs CBC & Chem 7: 07/31/17 05:35 07/31/17 05:35 Labs: Abnormal Lab Results - Last 24 Hours (Table) 07/30/17 07/31/17 Range/Units 15:37 05:35 Lymphocytes # 0.7 L (1.0-4.8) k/uL Potassium 3.3 L (3.5-5.1) mmol/L Carbon Dioxide 34 H (22-30) mmol/L BUN 32 H (7-17) mg/dL Creatinine 1.60 H (0.52-1.04) mg/dL Microbiology - Last 24 Hours (Table) 07/25/17 13:24 Blood Culture - Preliminary Blood No Growth after 120 hours Assessment and Plan (1) Hypertension Current Visit: Yes Status: Acute Code(s): I10 - ESSENTIAL (PRIMARY) HYPERTENSION SNOMED Code(s): 99798667 (2) Hyperlipidemia Current Visit: Yes Status: Acute Code(s): E78.5 - HYPERLIPIDEMIA, UNSPECIFIED SNOMED Code(s): 59039164 (3) Colon cancer Current Visit: Yes Status: Acute Code(s): C18.9 - MALIGNANT NEOPLASM OF COLON, UNSPECIFIED SNOMED Code(s): 639760824 (4) Breast cancer Current Visit: Yes Status: Acute Code(s): C50.919 - MALIGNANT NEOPLASM OF UNSP SITE OF UNSPECIFIED FEMALE BREAST SNOMED Code(s): 293693159 (5) Dehydration Current Visit: Yes Status: Acute Code(s): E86.0 - DEHYDRATION SNOMED Code( s): 99072879 (6) New onset atrial fibrillation Current Visit: Yes Status: Acute Code(s): I48.91 - UNSPECIFIED ATRIAL FIBRILLATION SNOMED Code(s): 44356012 (7) Pneumonia Current Visit: Yes Status: Acute Code(s): J18.9 - PNEUMONIA, UNSPECIFIED ORGANISM SNOMED Code(s): 067234479 (8) Renal insufficiency Current Visit: Yes Status: Acute Code(s): N28.9 - DISORDER OF KIDNEY AND URETER, UNSPECIFIED SNOMED Code(s): 545737062 Plan: Plan dated 07/28/2017 Very hard to get any good history from this patient. She is seen by a visiting physician. We'll review the x-rays labs and medications. It would be appropriate to put her on updrafts. Antibiotics are also appropriate. We'll continue to follow. We'll check a BNP. He may be a component of fluid overload. X-rays are improving though. Plan dated 07/30/2017 The patient seemed be doing relatively well. Labs x-rays a medications are reviewed. Pulmonary status is much improved. The patient's x-ray abnormalities likely related to atelectasis and not pneumonia. We'll continue to follow. Plan dated 07/31/2017 The patient seems be doing well from the pulmonary standpoint. No new complaints. No chest pain or chest discomfort. The difficulty breathing coughing wheezing or phlegm production. We'll continue to follow. X-rays have improved. Time with Patient: Less than 30
[2017-07-31] MEDS: IOHEXOL 350 MG/ML 25 ML BOTTLE (ORAL USE) PO PRN ×2 (12:03→13:07)
--- NOTE | 2017-07-31 15:10 | CT ---
EXAMINATION TYPE: CT abdomen pelvis wo con DATE OF EXAM: 07/31/2017 COMPARISON: NONE HISTORY: Obstruction CT DLP: 677.5 mGycm Automated exposure control for dose reduction was used. TECHNIQUE: Helical acquisition of images was performed from the lung bases through the pelvis. FINDINGS: There are bilateral pleural effusions and larger on the right side. There is some pulmonary infiltrat e in the right lower lobe with calcification. Heart is enlarged. Liver shows no focal defect. Gallbladder is dilated and measures 6 cm. Bile ducts are not dilated. Pa ncreas appears normal. There is no evidence of a splenic mass. There are multiple dilated small bowel loops that measure up to 5 cm. There is a transition point in the right lower quadrant best seen on sagittal image 51 probably due to a stricture. There are multip le surgical clips in the right lower quadrant. Distal ileum has normal diameter. There is no adrenal mass. Kidneys have normal size and contour. There is no hydronephrosis. Abdominal aorta is atheromatous. There is no retroperitoneal adenopathy. There is no ascites. There is retaine d fecal material in the rectum. There is multilevel spondylosis in the lumbar spine. IMPRESSION: DILATED SMALL BOWEL CONSISTENT WITH DISTAL MECHANICAL SMALL BOWEL OBSTRUCTION. THERE IS PROBABLY A ST RICTURE OR ADHESIONS DEMONSTRATED IN THE DISTAL ILEUM. BILATERAL PLEURAL EFFUSIONS WITH RIGHT LOWER LOBE INFILTRATE AND CALCIFICATION. CARDIOMEGALY. NASOGAS TRIC TUBE HAS THE TIP NEAR THE GASTROESOPHAGEAL JUNCTION. DILATED GALLBLADDER SUGGESTIVE OF CHOLECYSTITIS.
[2017-07-31] MEDS: OLANZapine ODT 10 MG TAB PO SCH (20:33)
[2017-07-31] MEDS: ATORVASTATIN 10 MG TAB PO SCH (20:33)
[2017-08-01] MEDS: IPRATROPIUM-ALBUTEROL 3 ML NEB INHALATION SCH ×4 (07:33→20:07)
[2017-08-01] MEDS: DOCUSATE 100 MG CAP PO SCH ×2 (08:22→20:50)
[2017-08-01] MEDS: MULTIVITAMINS, THERA 1 EACH TAB PO SCH (08:22)
[2017-08-01] MEDS: CALCIUM CARB-VIT D 500MG-200UN 1 EACH TAB PO SCH ×2 (08:22→20:50)
[2017-08-01] MEDS: GABAPENTIN 300 MG CAP PO SCH ×2 (08:22→20:50)
[2017-08-01] MEDS: NYSTATIN 100,000 UNIT/ML SUSP 500,000 UNIT/5 ML CUP PO SCH ×4 (08:23→21:09)
[2017-08-01] MEDS: ACETAMINOPHEN TAB 325 MG TAB PO SCH ×2 (08:23→20:52)
--- NOTE | 2017-08-01 08:48 | P.PN ---
Subjective Progress Note Date: 08/01/17 Principal diagnosis: Abdominal distention rule out bowel obstruction A computed tomography scan of the abdomen and pelvis was done yesterday. It does document a small bowel obstruction with a transition point in the right lower quadrant near previous colon anastomosis. The NG tube did have to be reinserted yesterday evening. Objective - Vital Signs Vital signs: Vital Signs Temp 97.6 F 08/01/17 04:00 Pulse 110 H 08/01/17 07:44 Resp 18 08/01/17 04:00 BP 117/67 08/01/17 04:00 Pulse Ox 93 L 08/01/17 07:33 Intake & Output 07/31/17 08/01/17 08/01/17 18:59 06:59 18:59 Intake Total 50 Output Total 1150 2475 Balance -1100 -2475 Weight 66 kg Intake: Intake, IV Titration 50 Amount Piperacillin-Tazobactam 3 50 .375 gm In Dextrose/Water 1 50ml.bag @ 12.5 mls/hr IVPB Q8HR [facility] Rx#: [id number] Output: Gastric Drainage 650 Urine 500 2075 Straight 800 Other 400 Other: # Voids 3 # Bowel Movements 1 - Constitutional Constitutional Comment(s): Seems somewhat less confused today. still does not remember the events has few days. General appearance: Present: cooperative, no acute distress - Respiratory Respiratory: bilateral: rhonchi (But improved) - Gastrointestinal General gastrointestinal: Present: distended, normal bowel sounds, tenderness - Labs CBC & Chem 7: 07/31/17 05:35 07/31/17 05:35 Labs: Microbiology - Last 24 Hours (Table) 07/25/17 13:24 Blood Culture - Final Blood No Growth after 144 hours - Imaging and Cardiology CT scan - abdomen: report reviewed, image reviewed Assessment and Plan (1) Small bowel obstruction Current Visit: Yes Status: Acute Code(s): K56.609 - UNSP INTESTNL OBST, UNSP TO PARTIAL VERSUS COMPLETE OBST SNOMED Code(s): 486975854 (2) Nausea and vomiting Current Visit: Yes Status: Acute Code(s): R11.2 - NAUSEA WITH VOMITING, UNSPECIFIED SNOMED Code(s): 20418299 (3) New onset atrial fibrillation Current Visit: Yes Status: Acute Code(s): I48.91 - UNSPECIFIED ATRIAL FIBRILLATION SNOMED Code(s): 16422254 (4) Pneumonia Current Visit: Yes Status: Acute Code(s): J18.9 - PNEUMONIA, UNSPECIFIED ORGANISM SNOMED Code(s): 897811298 (5) Heme + stool Current Visit: Yes Status: Acute Code(s): R19.5 - OTHER FECAL ABNORMALITIES SNOMED Code(s): 50506465 Plan: CT findings were discussed with the patient and her [id number] via phone. Recommended a laparotomy with release of small bowel obstruction. Internal medicine and pulmonary will need to follow her closely due to her serious comorbidities. The procedure risks and complications were discussed. Explained there may be a necessity to keep her intubated and go to the ICU postoperatively if she has respiratory issues. Further recommendations to follow.
--- NOTE | 2017-08-01 09:16 | XR ---
EXAMINATION TYPE: XR chest 1V portable DATE OF EXAM: 08/01/2017 HISTORY: Shortness of breath. COMPARISON: 07/28/2017 TECHNIQUE: Single view of the chest is submitted. FINDINGS: Demonstrated are scattered senescent parenchymal change. NG tube is seen coursing into the stomach. There is no evidence for focal infiltrate. Right basilar linear atelectasis persist. The heart is stable. Hilar and mediastinal structures are within normal limits. Degenerative changes are seen of the dorsal spine. IMPRESSION: 1. Chronic changes without evidence for acute pulmonary disease.
[2017-08-01] MEDS: PIPERACILLIN-TAZOBACTAM 3.375 GM in DEXTROSE/WATER 1 50ML.BAG IVPB SCH ×3 (09:45→23:44)
[2017-08-01 09:47] LABS: INR 1.1 (<1.2)
[2017-08-01 10:19] LABS: Partial Thromboplastin Time 20.9 sec (22.0-30.0)
--- NOTE | 2017-08-01 10:35 | CONS ---
CONSULTATION DATE OF CONSULTATION: 07/31/2017. PURPOSE FOR CONSULTATION: Evaluate for mental status change. INTERVAL HISTORY: Patient has been doing fair. She is struggling with bowel obstruction that has caused her a lot of physical difficulties. It is noted that she has been diagnosed with schizophrenia and was on Zyprexa Rel Prev 20 mg a day. That is a fairly high dose of medication for an 82-year-old female, though I have no information regarding her longer- term history. Given the medical issues that she is dealing with I cut the dose down to 10 mg. The only advantage of Rel Prev over a regular Zyprexa is just that it dissolves in the mouth though can be difficult for some patients if they have a dry mouth. There is no therapeutic benefit of Rel Prev over regular medications. Both are absorbed in the gut and not in the oral mucosa. I saw the patient, she was resting somewhat comfortably. She did not say much. She has not had any problems with behavior difficulties or thought disorder that I have been able to discern. According to nursing staff a few days ago, she was more disorganized in her behavior and had done things such as walk out in the [place] without clothing. At this point, there is not a need for any ongoing followup from a psychiatric standpoint, if things stabilize medically and she has other psychiatric needs, please re- refer for followup. MMODL / IJN: [id number] /
[2017-08-01] MEDS ORDERED: IV FLUID CONTINUATION 1,000 ML IV ONE (12:22)
--- NOTE | 2017-08-01 13:00 | P.PN ---
Subjective Progress Note Date: 08/01/17 Principal diagnosis: Fever, shortness of breath This is an 82-year-old female that we saw in consultation. She has a history of breast and colon cancer as well as hypertension. She apparently [facility] at [facility] and is seen by a visiting physician by the name of Dr. Beth. She had weakness. She also had cough and shortness of breath. Not producing any phlegm. She had a temperature elevation of 101.2. She also was found have atrial fibrillation with rapid ventricular response with a heart rate about 1 20 bpm. She appears to be a little short of breath even at the current time. Chest x-ray initially shows some patchy infiltrates in the right midlung and right lower lobe potentially consistent with pneumonia. Again her symptoms could be consistent with heart failure and/or pneumonia. Anyway she is doing a bit better not a lot. Not a particularly good historian. On 08/01/2017 patient seen in follow-up on selective care unit. His any worsening dyspnea, lung sounds are positive for scattered rhonchi. She remains on 3 L per nasal cannula with O2 sat at 94%. Afebrile, hemodynamically stable. She still has NG tube in place for persistent abdominal distention. Abdominqal/pelvis CT from 07/31/2017 showed dilated small bowel consistent with distal mechanical small bowel obstruction. Chest x-ray from 08/01/2017 has been reviewed and showed chronic changes without evidence of any acute pulmonary disease. Surgery is planned and on laparotomy with release of small bowel obstruction at 1300 today. From pulmonary/critical care standpoint patient is stable to go to surgery today. Objective - Vital Signs Vital signs: Vital Signs Temp 97.1 F L 08/01/17 12:24 Pulse 108 H 08/01/17 12:24 Resp 18 08/01/17 12:24 BP 135/66 08/01/17 12:24 Pulse Ox 94 L 08/01/17 12:24 Intake & Output 07/31/17 08/01/17 08/01/17 18:59 06:59 18:59 Intake Total 50 Output Total 0360 0125 Balance -1100 -5370 Weight 66 kg Intake: Intake, IV Titration 50 Amount Piperacillin-Tazobactam 3 50 .375 gm In Dextrose/Water 1 50ml.bag @ 12.5 mls/hr IVPB Q8HR [facility] Rx#: [id number] Output: Gastric Drainage 650 Urine 500 2075 Straight 800 Other 400 Other: Voiding Method Bedside Commode # Voids 3 # Bowel Movements 1 - Exam GENERAL EXAM: Alert, in no apparent distress. HEAD: Normocephalic/atraumatic. EYES: Normal reaction of pupils, equal size. Conjunctiva pink, sclera white. NOSE: Clear with pink turbinates. NG tube is in place to low intermittent suction for persistent abdominal distention THROAT: No erythema or exudates. NECK: No masses, no JVD, no thyroid enlargement, no adenopathy. CHEST: No chest wall deformity. Symmetrical expansion. LUNGS: Equal air entry scattered rhonchi over bilateral bases, no wheezes, no rales. CVS: Regular rate and rhythm, normal S1 and S2, no gallops, no murmurs, no rubs ABDOMEN: Soft, distended, tender to palpation. EXTREMITIES: No clubbing, no edema, no cyanosis, 2+ pulses and upper and lower extremities. MUSCULOSKELETAL: Muscle strength and tone normal. SPINE: No scoliosis or deformity SKIN: No rashes CENTRAL NERVOUS SYSTEM: Alert and oriented -3. No focal deficits, tone is normal in all 4 extremities. PSYCHIATRIC: Alert and oriented -3. Appropriate affect. Intact judgment and insight. - Labs CBC & Chem 7: 07/31/17 05:35 07/31/17 05:35 Labs: Abnormal Lab Results - Last 24 Hours (Table) 08/01/17 Range/Units 09:21 APTT 20.9 L (22.0-30.0) sec Microbiology - Last 24 Hours (Table) 07/25/17 13:24 Blood Culture - Final Blood No Growth after 144 hours Assessment and Plan Plan: Smoking: #1. Sepsis secondary to possible right lower lobe pneumonia, or acute small bowel obstruction, and acute urinary tract infection, she presented with febrile illness, tachycardia, A. fib RVR, weakness, leucocytosis, cough without sputum production, hypotension, urinalysis positive for large amount of leukocyte esterase, WBCs, bacteria and mucus. X-ray on 07/25/2017 showed right mid and lower lung patchy and confluent consolidation. #2. Acute kidney failure secondary to sepsis and hypotension #3. COPD exacerbation #4. New-onset A. fib with RVR, present on admission #5. History of CVA/TIA #6. Hyperlipidemia #7. Hypertension #8. History of colon and breast CA, status post post-double mastectomy #9. 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 CT of abdomen and pelvis showed findings compatible with small bowel obstruction. Patient is stable from pulmonary standpoint, chest x-ray shows no acute pulmonary disease. Is hemodynamically stable, continue on Zosyn, continue breathing treatments. Patient is clear from pulmonary standpoint to proceed laparotomy and release of the small bowel obstruction. I performed a history & physical examination of the patient and discussed their management with my nurse practitioner, Ronel Keenan. I reviewed the nurse practitioner's note and agree with the documented findings and plan of care. Lung sounds are positive for a few scattered rhonchi. The findings and the impression was discussed with the patient. I attest to the documentation by the nurse practitioner. Time with Patient: Less than 30
[2017-08-01] MEDS ORDERED: LIDOCAINE 1% INJ 10MG/ML (20 ML MDV) ONE (13:02)
[2017-08-01] MEDS ORDERED: GLYCOPYRROLATE 0.2 MG/ML 2 ML VIAL ONE (13:02)
[2017-08-01] MEDS ORDERED: PROPOFOL 10 MG/ML 20 ML VIAL IV ONE (13:02)
[2017-08-01] MEDS ORDERED: fentaNYL (PF) 50 MCG/ML 2 ML AMP ONE (13:02)
[2017-08-01] MEDS ORDERED: PHENYLEPHRINE-0.9% NACL SYG 1 MG/10 ML SYRINGE ONE (13:02)
[2017-08-01] MEDS ORDERED: NEOSTIGMINE 1 MG/ML 10 ML VIAL ONE (13:02)
[2017-08-01] MEDS ORDERED: SUCCINYLCHOLINE CHLORIDE 100 MG/5 ML SYR IV ONE (13:02)
[2017-08-01] MEDS ORDERED: ONDANSETRON 4 MG/2 ML VIAL ONE (13:02)
[2017-08-01] MEDS ORDERED: ROCURONIUM BROMIDE 10 MG/ML 10 ML VIAL IV ONE (13:02)
[2017-08-01] MEDS ORDERED: LACTATED RINGERS 1,000 ML IV ONE (13:36)
--- NOTE | 2017-08-01 14:26 | P.OP ---
Date of Procedure: 08/01/17 Preoperative Diagnosis: Small bowel obstruction Postoperative Diagnosis: SMall bowel obstruction Procedure(s) Performed: Exploratory laparotomy with release of small bowel obstruction Anesthesia: JAVIER Surgeon: Heather Fleming Estimated Blood Loss (ml): 150 Pathology: none sent Condition: stable Disposition: PACU Indications for Procedure: The patient presented with persistent abdominal distention. A computed tomography scan showed evidence of a distal small bowel obstruction Operative Findings: Small bowel obstruction from intra-abdominal adhesions Description of Procedure: The patient is taken the operative suite where she is prepped and draped in the usual sterile manner under a general endotracheal anesthetic. The abdomen is entered through a midline incision. Small bleeding points were controlled with electrocautery. Upon entry into the abdomen there are numerous dilated loops of small bowel. There was adhesions noted in the right lower quadrant. There was an adhesive band which was causing the small bowel obstruction. There were multiple loops which were adherent and were sharply dissected free to visualize the entire bowel. The enteric contents were milked back into the stomach and aspirated through the nasogastric tube. There were some areas where the small bowel was mildly indurated from the obstruction but there was no evidence of any tenderness changes. A small serosal and mucosal rent was repaired with 3-0 Vicryl in a layered manner. The small bowel was again run from distal to proximal and all the bowel appeared pink and viable the abdomen was irrigated and aspirated. All bowel was allowed to lay in gentle loops and covered with the omentum. The fascia and peritoneum were closed with 1 PDS. The skin was closed with bernadine. A dressing was applied. She tolerated the procedure without difficulty and was taken recovery room in satisfactory condition. According to or personnel, all counts are correct.
[2017-08-01] MEDS: HYDROmorphone 1 MG/ML 1 ML SYRINGE IVP ONE ×2 (14:43→15:25)
[2017-08-01] MEDS: KETOROLAC 30 MG/ML 1 ML VIAL IVP SCH ×2 (14:56→20:57)
[2017-08-01] MEDS: DEXTROSE 5%-0.45% NACL 1,000 ML IV SCH (16:10)
[2017-08-01] MEDS: ATORVASTATIN 10 MG TAB PO SCH (20:50)
[2017-08-01] MEDS: OLANZapine ODT 10 MG TAB PO SCH (20:51)
[2017-08-02] MEDS: HYDROmorphone 1 MG/ML 1 ML SYRINGE IVP PRN ×3 (02:00→16:22)
[2017-08-02] MEDS: DEXTROSE 5%-0.45% NACL 1,000 ML IV SCH ×2 (05:13→15:24)
[2017-08-02] MEDS: KETOROLAC 30 MG/ML 1 ML VIAL IVP SCH ×4 (05:14→15:23)
[2017-08-02 06:25] LABS: Basophils % (A) 0 %; Eosinophils # (A) 0.1 k/uL (0-0.7); Eosinophils % (A) 1 %; HCT 41.1 % (34.0-46.0); HGB 12.8 gm/dL (11.4-16.0); Hypochromasia Slight; Lymphocytes # (A) 0.5 k/uL (1.0-4.8); Lymphocytes % (A) 4 %; MCH 29.5 pg (25.0-35.0); MCHC 31.1 g/dL (31.0-37.0); MCV 94.6 fL (80.0-100.0); Mean Platelet Volume 8.3; Monocytes # (A) 0.4 k/uL (0-1.0); Monocytes % (A) 3 %; Neutrophils % (A) 91 %; Platelet Count 317 k/uL (150-450); RBC 4.34 m/uL (3.80-5.40); RDW 14.1 % (11.5-15.5); WBC 13.1 k/uL (3.8-10.6)
[2017-08-02 06:29] LABS: Ionized Calcium 4.6 mg/dL (4.5-5.3)
[2017-08-02 06:47] LABS: Albumin 2.6 g/dL (3.5-5.0); Calcium 8.8 mg/dL (8.4-10.2); Magnesium 2.5 mg/dL (1.6-2.3); Phosphorus 4.5 mg/dL (2.5-4.5); Potassium 3.3 mmol/L (3.5-5.1); Total Bilirubin 0.7 mg/dL (0.2-1.3); Total Protein 4.8 g/dL (6.3-8.2)
[2017-08-02] MEDS: CALCIUM CARB-VIT D 500MG-200UN 1 EACH TAB PO SCH ×2 (07:55→22:50)
[2017-08-02] MEDS: MULTIVITAMINS, THERA 1 EACH TAB PO SCH (07:55)
[2017-08-02] MEDS: GABAPENTIN 300 MG CAP PO SCH ×2 (07:55→22:51)
[2017-08-02] MEDS: ACETAMINOPHEN TAB 325 MG TAB PO SCH (07:55)
[2017-08-02] MEDS: DOCUSATE 100 MG CAP PO SCH ×2 (07:55→22:51)
[2017-08-02] MEDS: NYSTATIN 100,000 UNIT/ML SUSP 500,000 UNIT/5 ML CUP PO SCH ×3 (08:05→22:46)
[2017-08-02] MEDS: PANTOPRAZOLE 40 MG/10 ML VIAL IV SCH (08:05)
[2017-08-02] MEDS: IPRATROPIUM-ALBUTEROL 3 ML NEB INHALATION SCH ×4 (08:31→20:12)
[2017-08-02] MEDS: PIPERACILLIN-TAZOBACTAM 3.375 GM in DEXTROSE/WATER 1 50ML.BAG IVPB SCH ×2 (10:01→15:23)
[2017-08-02] MEDS ORDERED: Potassium Replacement Protocol 1 EACH MISC MISCELLANE PRN (10:19)
[2017-08-02] MEDS ORDERED: LIDOCAINE 2% INJ 20 MG/ML SQ ONE (10:31)
--- NOTE | 2017-08-02 11:03 | IR ---
PICC LINE PLACEMENT: HISTORY: Infection requiring long-term antibiotic therapy PROCEDURE: Ultrasound and fluoroscopic guidance of PICC line placement. COMPLICATIONS: None ANESTHESIA: 1. 1% Lidocaine locally. FINDINGS/TECHNIQUE: The procedure was explained to the patient. The risks, complications, benefits and alternatives were discussed and any questions were answered. Informed consent was obtained. The patient was placed supine on the fluoroscopic table and prepped and draped in the usual sterile fash ion. Utilizing a 21 gauge needle and sonographic and fluoroscopic guidance, access in the vein was achieved and there is placement of a 0.018 guidewire. The vein is patent. A 5-Fr sheath was placed over the guidewire. The guidewire and dilator were removed and a 5-F. Double lumen PICC line was pl aced through the sheath with the tip at the level of the SVC. The sheath was removed, the catheter w as flushed and sutured into position. The patient was stable throughout the procedure and remained s table upon discharge from the Department of Radiology. The vein puncture was patent under ultrasound. A che scale image was obtained to document patency of the vein punctured. All elements of the maximal barrier technique were utilized. FLUOROSCOPY TIME: 0.4 minutes, one image submitted IMPRESSION: Successful PICC double lumen line placement under ultrasound and fluoroscopic guidance.
--- NOTE | 2017-08-02 13:00 | P.PN ---
Subjective Progress Note Date: 08/02/17 Principal diagnosis: S/P laparotomy with release of small bowel obstruction The patient's postoperative day 1 from a laparotomy with lysis of adhesions for small bowel obstruction. SHe was fairly agitated this morning and so received medication. She is very sedate now. Her sitter Said she was coughing well this morning. Objective - Vital Signs Vital signs: Vital Signs Temp 98.8 F 08/02/17 08:00 Pulse 96 08/02/17 08:45 Resp 18 08/02/17 08:00 BP 116/56 08/02/17 08:00 Pulse Ox 93 L 08/02/17 08:32 Intake & Output 08/01/17 08/02/17 08/02/17 18:59 06:59 18:59 Intake Total 1436 900 0 Output Total 1530 300 Balance -94 600 0 Weight 66 kg 65 kg Intake: IV 1200 Intake, IV Titration 900 Amount Dextrose 5%-0.45% NaCl 1, 800 000 ml @ 80 mls/hr IV . [id number] [facility] Rx#:[id number] Piperacillin-Tazobactam 3 100 .375 gm In Dextrose/Water 1 50ml.bag @ 12.5 mls/hr IVPB Q8HR [facility] Rx#: [id number] Oral 236 0 0 Output: Gastric Drainage 950 Urine 550 300 Estimated Blood Loss 30 Other: Voiding Method Bedside Commode Indwelling Catheter - Constitutional Constitutional Comment(s): Sedate, opens eyes to verbal stimuli and makes eye contact. does Not follow commands - Respiratory Respiratory: bilateral: diminished, rhonchi - Cardiovascular Rhythm: other (tachycardiac) - Gastrointestinal General gastrointestinal: Present: absent bowel sounds, soft (Much softer than preoperatively) Localized gastrointestinal: surgical scar: diffuse (Dressing is intact clean and dry) - Labs CBC & Chem 7: 08/02/17 06:08 08/02/17 06:08 Labs: Abnormal Lab Results - Last 24 Hours (Table) 08/02/17 08/02/17 Range/Units 06:08 06:08 WBC 13.1 H (3.8-10.6) k/uL Neutrophils # 12.0 H (1.3-7.7) k/uL Lymphocytes # 0.5 L (1.0-4.8) k/uL Sodium 146 H (137-145) mmol/L Potassium 3.3 L (3.5-5.1) mmol/L Carbon Dioxide 41 H* (22-30) mmol/L BUN 43 H (7-17) mg/dL Creatinine 2.50 H (0.52-1.04) mg/dL Glucose 156 H (74-99) mg/dL Magnesium 2.5 H (1.6-2.3) mg/dL Total Protein 4.8 L (6.3-8.2) g/dL Albumin 2.6 L (3.5-5.0) g/dL Assessment and Plan (1) Small bowel obstruction Current Visit: Yes Status: Acute Code(s): K56.609 - UNSP INTESTNL OBST, UNSP TO PARTIAL VERSUS COMPLETE OBST SNOMED Code(s): 688293122 (2) New onset atrial fibrillation Current Visit: Yes Status: Acute Code(s): I48.91 - UNSPECIFIED ATRIAL FIBRILLATION SNOMED Code(s): 72398164 Plan: Continue NG tube decompression. TPN is to be started today. Continue sitter for safety. I asked nursing and sitter to have the patient get up to the chair when she is more alert. Encourage cough and deep breathe, she is at increased risk for pulmonary complications.
--- NOTE | 2017-08-02 15:42 | P.PN ---
<Ronel Keenan M - Last Filed: 08/02/17 15:27> Subjective Progress Note Date: 08/02/17 Principal diagnosis: Fever, shortness of breath This is an 82-year-old female that we saw in consultation. She has a history of breast and colon cancer as well as hypertension. She apparently lives at a [facility] and is seen by a visiting physician by the name of Dr. Beth. She had weakness. She also had cough and shortness of breath. Not producing any phlegm. She had a temperature elevation of 101.2. She also was found have atrial fibrillation with rapid ventricular response with a heart rate about 1 20 bpm. She appears to be a little short of breath even at the current time. Chest x-ray initially shows some patchy infiltrates in the right midlung and right lower lobe potentially consistent with pneumonia. Again her symptoms could be consistent with heart failure and/or pneumonia. Anyway she is doing a bit better not a lot. Not a particularly good historian. On 08/01/2017 patient seen in follow-up on selective care unit. His any worsening dyspnea, lung sounds are positive for scattered rhonchi. She remains on 3 L per nasal cannula with O2 sat at 94%. Afebrile, hemodynamically stable. She still has NG tube in place for persistent abdominal distention. Abdominqal/pelvis CT from 07/31/2017 showed dilated small bowel consistent with distal mechanical small bowel obstruction. Chest x-ray from 08/01/2017 has been reviewed and showed chronic changes without evidence of any acute pulmonary disease. Surgery is planned and on laparotomy with release of small bowel obstruction at 1300 today. From pulmonary/critical care standpoint patient is stable to go to surgery today. On 08/02/2017 patient is seen , status post exploratory laparotomy with release of bowel obstruction, postop day 1. Patient appears to be lethargic, arousable to verbal stimuli, afebrile, hemodynamically stable, slightly tachycardic with a heart rate of 10-105 BPM. Is on 2 L per nasal cannula, with O2 sat at 91%. When necessary doses of Dilaudid for incisional pain. NG tube is in place to low intermittent suction with a total of 600 mL of liquid green output last 24 hours. Mid abdominal incision covered with surgical dressing. No bowel sounds auscultated, abdomen is soft, tender to palpation. Labs been reviewed, WBCs up to 13.1, hemoglobin is 12.8, serum sodium is up to 46, serum potassium is 3.3, carbon dioxide is 41, B1 is 33, creatinine is 2.5. Patient has been initiated on D5 0.45 normal saline and 80 mL per hour. Remains nothing by mouth. TPN will be started today, patient did receive a PICC line. Culture results have been reviewed and blood culture shows no growth since admission. Objective - Vital Signs Vital signs: Vital Signs Temp 96.6 F L 08/02/17 12:00 Pulse 96 08/02/17 13:18 Resp 18 08/02/17 12:00 BP 102/58 08/02/17 12:00 Pulse Ox 91 L 08/02/17 12:00 Intake & Output 08/01/17 08/02/17 08/02/17 18:59 06:59 18:59 Intake Total 1436 900 0 Output Total 1530 300 Balance -94 600 0 Weight 66 kg 65 kg Intake: IV 1200 Intake, IV Titration 900 Amount Dextrose 5%-0.45% NaCl 1, 800 000 ml @ 80 mls/hr IV . [id number] [facility] Rx#:[id number] Piperacillin-Tazobactam 3 100 .375 gm In Dextrose/Water 1 50ml.bag @ 12.5 mls/hr IVPB Q8HR [facility] Rx#: [id number] Oral 236 0 0 Output: Gastric Drainage 950 Urine 550 300 Estimated Blood Loss 30 Other: Voiding Method Bedside Commode Indwelling Catheter Indwelling Catheter # Voids 0 # Bowel Movements 0 - Exam GENERAL EXAM: Alert, in no apparent distress. HEAD: Normocephalic/atraumatic. EYES: Normal reaction of pupils, equal size. Conjunctiva pink, sclera white. NOSE: Clear with pink turbinates. NG tube is in place to low intermittent suction for persistent abdominal distention THROAT: No erythema or exudates. NECK: No masses, no JVD, no thyroid enlargement, no adenopathy. CHEST: No chest wall deformity. Symmetrical expansion. LUNGS: Equal air entry scattered rhonchi over bilateral bases, no wheezes, no rales. CVS: Regular rate and rhythm, normal S1 and S2, no gallops, no murmurs, no rubs ABDOMEN: Soft, tender to palpation, minimal abdominal surgical incision is clean dry and intact, covered with surgical dressing.. EXTREMITIES: No clubbing, no edema, no cyanosis, 2+ pulses and upper and lower extremities. MUSCULOSKELETAL: Muscle strength and tone normal. SPINE: No scoliosis or deformity SKIN: No rashes CENTRAL NERVOUS SYSTEM: Somnolent, but easily arousable to verbal stimuli. No focal deficits, tone is normal in all 4 extremities. PSYCHIATRIC: Alert and oriented -1. Appropriate affect. Intact judgment and insight. - Labs CBC & Chem 7: 08/02/17 06:08 08/02/17 06:08 Labs: Abnormal Lab Results - Last 24 Hours (Table) 08/02/17 08/02/17 Range/Units 06:08 06:08 WBC 13.1 H (3.8-10.6) k/uL Neutrophils # 12.0 H (1.3-7.7) k/uL Lymphocytes # 0.5 L (1.0-4.8) k/uL Sodium 146 H (137-145) mmol/L Potassium 3.3 L (3.5-5.1) mmol/L Carbon Dioxide 41 H* (22-30) mmol/L BUN 43 H (7-17) mg/dL Creatinine 2.50 H (0.52-1.04) mg/dL Glucose 156 H (74-99) mg/dL Magnesium 2.5 H (1.6-2.3) mg/dL Total Protein 4.8 L (6.3-8.2) g/dL Albumin 2.6 L (3.5-5.0) g/dL Assessment and Plan Plan: Plan: Smoking: #1. Sepsis secondary to possible right lower lobe pneumonia, or acute small bowel obstruction, and acute urinary tract infection, she presented with febrile illness, tachycardia, A. fib RVR, weakness, leucocytosis, cough without sputum production, hypotension, urinalysis positive for large amount of leukocyte esterase, WBCs, bacteria and mucus. X-ray on 07/25/2017 showed right mid and lower lung patchy and confluent consolidation. #2. Acute kidney failure secondary to sepsis and hypotension #3. COPD exacerbation #4. New-onset A. fib with RVR, present on admission #5. History of CVA/TIA #6. Hyperlipidemia #7. Hypertension #8. History of colon and breast CA, status post post-double mastectomy #9. 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 Small bowel obstruction, status post exposure laparotomy with release of small bowel obstruction, postop day 1. Plan: Continue D5.45 normal saline at 80 ML per hour, anticipate initiation of TPN per surgery. NG tube is to low intermittent suction. Incentive spirometer to the bedside, pulmonary toileting. Continue GI/DVT prophylaxis. Continue on Zosyn, continue breathing treatments. Correct potassium per protocol, pain control. I performed a history & physical examination of the patient and discussed their management with my nurse practitioner, Ronel Keenan. I reviewed the nurse practitioner's note and agree with the documented findings and plan of care. Lung sounds are diminished. The findings and the impression was discussed with the patient. I attest to the documentation by the nurse practitioner. Time with Patient: Less than 30 <Celestine Peacock - Last Filed: 08/02/17 16:16> Objective - Vital Signs Vital signs: Vital Signs Temp 98.6 F 08/02/17 15:47 Pulse 83 08/02/17 15:51 Resp 18 08/02/17 15:51 BP 102/58 08/02/17 15:47 Pulse Ox 92 L 08/02/17 15:47 Intake & Output 08/01/17 08/02/17 08/02/17 18:59 06:59 18:59 Intake Total 1436 900 640 Output Total 1530 300 50 Balance -94 600 590 Weight 66 kg 65 kg Intake: IV 1200 Intake, IV Titration 900 640 Amount Dextrose 5%-0.45% NaCl 1, 800 640 000 ml @ 80 mls/hr IV . [id number] [facility] Rx#:[id number] Piperacillin-Tazobactam 3 100 .375 gm In Dextrose/Water 1 50ml.bag @ 12.5 mls/hr IVPB Q8HR [facility] Rx#: [id number] Oral 236 0 0 Output: Gastric Drainage 950 50 Urine 550 300 Estimated Blood Loss 30 Other: Voiding Method Bedside Commode Indwelling Catheter Indwelling Catheter # Voids 0 # Bowel Movements 0 - Labs CBC & Chem 7: 08/02/17 06:08 08/02/17 06:08 Labs: Abnormal Lab Results - Last 24 Hours (Table) 08/02/17 08/02/17 Range/Units 06:08 06:08 WBC 13.1 H (3.8-10.6) k/uL Neutrophils # 12.0 H (1.3-7.7) k/uL Lymphocytes # 0.5 L (1.0-4.8) k/uL Sodium 146 H (137-145) mmol/L Potassium 3.3 L (3.5-5.1) mmol/L Carbon Dioxide 41 H* (22-30) mmol/L BUN 43 H (7-17) mg/dL Creatinine 2.50 H (0.52-1.04) mg/dL Glucose 156 H (74-99) mg/dL Magnesium 2.5 H (1.6-2.3) mg/dL Total Protein 4.8 L (6.3-8.2) g/dL Albumin 2.6 L (3.5-5.0) g/dL Assessment and Plan Plan: Patient is postop day #1 following a stricter laparotomy. This is a joint evaluation that was done along with a nurse practitioner. The patient became overnight delirious and confused and agitated. She required Dilaudid which helped her calm down and she has a sitter at all times at the bedside. Noted increase in her creatinine and development acute kidney injury. This may be a postsurgical intravascular volume depletion and the patient is currently receiving D5 half-normal saline at the rate of 80 mL an hour and the patient will be also started on TPN for nutritional support. NG tube is in place and output is minimal at this point. Surgical wound site is dry clean and intact. Bowel sounds are absent for now. The patient is postop day #1. We'll continue to follow. I attest to the above-mentioned information.
[2017-08-02] MEDS: HEPARIN SODIUM,PORCINE 5,000 UNIT/ML 1 ML VIAL SQ SCH (16:22)
--- NOTE | 2017-08-02 17:57 | XR ---
EXAMINATION TYPE: XR chest 1V portable DATE OF EXAM: 08/02/2017 COMPARISON: Yesterday HISTORY: Hypoxemia TECHNIQUE: Single frontal view of the chest is obtained. FINDINGS: There is pulmonary vascular congestion. There is poor aspiration with infiltrates of the l juan josé bases. Heart appears enlarged. There is nasogastric tube. IMPRESSION: Congestive heart failure with pleural effusions and basilar mild infiltrates. Chest appe ars worse than yesterday.
[2017-08-02] MEDS: NALOXONE 0.4 MG/ML 1 ML VIAL IV PRN ×2 (18:15→18:18)
[2017-08-02 18:31] LABS: Glucose,Whole Blood 116 mg/dL (75-99)
--- NOTE | 2017-08-02 18:54 | P.PN ---
Subjective Progress Note Date: 08/02/17 PROGRESS NOTE being dictated for Dr. Jackson. Interval history: This is a 82-year-old female admitted with ileus, small bowel obstruction, status post exploratory laparotomy with release of small bowel obstruction. Maintained on Zosyn.NPO.Receiving TPN via PICC line. Receiving Dilaudid IV push for pain. Lethargic, telemetry atrial fibrillation with heart rates ranging 100s to 120s. Deep suctioned thick green-brown sputum, not sent for culture. T-max 102.1 ,WBCs up to 13.1, hemoglobin 12.8. Preliminary blood cultures negative. Patient had transferred off the telemetry unit, developed worsening respiratory distress and requiring Ventimask. Less arousable. A team called, patient being transferred to ICU. Currently unable to obtain review of systems Active Medications Acetaminophen (Tylenol Tab) 650 mg PO BID [facility] Last Admin: 08/02/17 07:55 Dose: Not Given Albuterol/Ipratropium (Duoneb 0.5 Mg-3 Mg/3 Ml Soln) 3 ml INHALATION RT-QID [facility] Last Admin: 08/02/17 17:13 Dose: 3 ml Artificial Tears (Artificial Tear Drops) 1 drops BOTH EYES Q6H PRN PRN Reason: Dry Eye(s) Atorvastatin Calcium (Lipitor) 10 mg PO HS@1999 [facility] Last Admin: 08/01/17 20:50 Dose: Not Given Benzocaine/Menthol (Cepacol Lozenge) 1 each MUCOUS MEM Q4HR PRN PRN Reason: Sore Throat Last Admin: 07/27/17 10:23 Dose: 1 each Calcium Carbonate (Oscal 500+D) 1 each PO BID@ [facility] Last Admin: 08/02/17 07:55 Dose: Not Given Docusate Sodium (Colace) 100 mg PO BID@ [facility] Last Admin: 08/02/17 07:55 Dose: Not Given Gabapentin (Neurontin) 300 mg PO BID@ [facility] Last Admin: 08/02/17 07:55 Dose: Not Given Guaifenesin/Dextromethorphan (Robitussin Dm) 5 ml PO QID PRN PRN Reason: Cough Last Admin: 07/30/17 14:20 Dose: 5 ml Haloperidol Lactate (Haldol) 5 mg IM Q6HR PRN PRN Reason: Agitation or Acute Psychosis Last Admin: 07/30/17 02:00 Dose: 5 mg Heparin Sodium (Porcine) (Heparin) 5,000 unit SQ Q8HR [facility] Last Admin: 08/02/17 16:22 Dose: 5,000 unit Hydrocortisone Acetate (Anusol-Hc) 25 mg RECTAL Q12H PRN PRN Reason: Hemorrhoids Hydromorphone HCl (Dilaudid) 0.5 mg IVP Q3HR PRN PRN Reason: Moderate to Severe Pain Last Admin: 08/02/17 16:22 Dose: 0.5 mg Piperacillin/Tazobactam/ (Dextrose 3.375 gm/ IV Solution) 50 mls @ 12.5 mls/hr IVPB Q8HR [facility] Last Admin: 08/02/17 15:23 Dose: 12.5 mls/hr Dextrose/Sodium Chloride (Dextrose 5%-1/2ns Iv Soln) 1,000 mls @ 80 mls/hr IV .[id number] [facility] Last Admin: 08/02/17 15:24 Dose: 80 mls/hr Parenteral Vitamin Supplement 10 ml/ Chromium/Copper/Manganese/Seleni/Zn 1 ml/ Amino Ac/Electrol/Dextrose/Calcium 1,011 mls @ 30 mls/hr IV .Q24H [facility] Fat Emulsion Intravenous 250 (ml/ IV Solution) 250 mls @ 21 mls/hr IV MoWeFr@ 1800 [facility] Parenteral Vitamin Supplement 10 ml/ Chromium/Copper/Manganese/Seleni/Zn 1 ml/ Amino Ac/Electrol/Dextrose/Calcium 1,011 mls @ 40 mls/hr IV .Q24H [facility] Ketorolac Tromethamine (Toradol) 15 mg IVP Q6H [facility] Stop: 08/02/17 21:01 Last Admin: 08/02/17 15:23 Dose: 15 mg Loratadine (Claritin) 10 mg PO DAILY PRN PRN Reason: Allergy Symptoms Lorazepam (Ativan) 0.5 mg IV Q6HR PRN PRN Reason: Anxiety Last Admin: 07/31/17 03:51 Dose: 0.5 mg Lorazepam (Ativan) 1 mg IV Q6HR PRN PRN Reason: Agitation or Acute Anxiety Miscellaneous Information (Pneumonia Protocol Utilized) 1 each PO ONCE PRN PRN Reason: Per Protocol Miscellaneous Information (Potassium Per Protocol) 1 each MISCELLANE DAILY PRN ; Protocol PRN Reason: Per Protocol Multivitamins (Theragran) 1 each PO DAILY@0800 [facility] Last Admin: 08/02/17 07:55 Dose: Not Given Naloxone HCl (Narcan) 0.2 mg IV Q2M PRN PRN Reason: Opioid Reversal Nystatin (Mycostatin Oral Susp) 500,000 unit PO QID [facility] Last Admin: 08/02/17 14:49 Dose: Not Given Olanzapine (Zyprexa Zydis) 20 mg PO HS@2000 [facility] Last Admin: 08/01/17 20:51 Dose: Not Given Ondansetron HCl (Zofran) 4 mg IVP Q6HR PRN PRN Reason: Nausea And Vomiting Last Admin: 07/28/17 03:28 Dose: 4 mg Pantoprazole Sodium (Protonix) 40 mg IV DAILY [facility] Last Admin: 08/02/17 08:05 Dose: 40 mg Polyethylene Glycol (Miralax) 17 gm PO DAILY PRN PRN Reason: Constipation Last Admin: 07/27/17 20:56 Dose: 17 gm Promethazine HCl (Phenergan) 12.5 mg PO Q12H PRN PRN Reason: Nausea Last Admin: 07/26/17 06:23 Dose: 12.5 mg Tramadol HCl (Ultram) 50 mg PO TID PRN PRN Reason: Severe Pain Objective - Vital Signs Vital signs: Vital Signs Temp 102.1 F H 08/02/17 17:12 Pulse 102 H 08/02/17 17:27 Resp 16 08/02/17 17:12 BP 115/70 08/02/17 17:12 Pulse Ox 93 L 08/02/17 17:26 Intake & Output 08/01/17 08/02/17 08/02/17 18:59 06:59 18:59 Intake Total 1436 900 640 Output Total 1530 300 250 Balance -94 600 390 Weight 66 kg 65 kg Intake: IV 1200 Intake, IV Titration 900 640 Amount Dextrose 5%-0.45% NaCl 1, 800 640 000 ml @ 80 mls/hr IV . [id number] [facility] Rx#:[id number] Piperacillin-Tazobactam 3 100 .375 gm In Dextrose/Water 1 50ml.bag @ 12.5 mls/hr IVPB Q8HR [facility] Rx#: [id number] Oral 236 0 0 Output: Gastric Drainage 950 50 Urine 550 300 200 Estimated Blood Loss 30 Other: Voiding Method Bedside Commode Indwelling Catheter Indwelling Catheter # Voids 0 # Bowel Movements 0 - Exam GENERAL: The patient is alert and oriented x1, arousable, lethargic HEENT: Pupils are round and equally reacting to light. EOMI. No scleral icterus. No conjunctival pallor. Normocephalic, atraumatic. No pharyngeal erythema. No thyromegaly. CARDIOVASCULAR: S1 and S2 present. Irregular, tachycardic, No murmurs, rubs, or gallops. PULMONARY: Respiratory effort increased ,Scattered rhonchi throughout, no wheezes, no crackles, no wheezing ABDOMEN: Soft, status post surgery dressing clean dry and intact, no bowel sounds auscultated MUSCULOSKELETAL: No joint swelling or deformity. EXTREMITIES: No cyanosis, clubbing, or pedal edema. NEUROLOGICAL: Gross neurological examination did not reveal any focal deficits. SKIN: No rashes. - Labs CBC & Chem 7: 08/02/17 06:08 08/02/17 06:08 Labs: Abnormal Lab Results - Last 24 Hours (Table) 08/02/17 08/02/17 Range/Units 06:08 06:08 WBC 13.1 H (3.8-10.6) k/uL Neutrophils # 12.0 H (1.3-7.7) k/uL Lymphocytes # 0.5 L (1.0-4.8) k/uL Sodium 146 H (137-145) mmol/L Potassium 3.3 L (3.5-5.1) mmol/L Carbon Dioxide 41 H* (22-30) mmol/L BUN 43 H (7-17) mg/dL Creatinine 2.50 H (0.52-1.04) mg/dL Glucose 156 H (74-99) mg/dL Magnesium 2.5 H (1.6-2.3) mg/dL Total Protein 4.8 L (6.3-8.2) g/dL Albumin 2.6 L (3.5-5.0) g/dL Assessment and Plan Assessment: -Sepsis secondary to possible right lower lobe pneumonia, acute small bowel obstruction, acute UTI -Atrial fibrillation with RVR, new onset-present on admission -COPD with acute exacerbation patient will benefit from systemic steroids, a be a competent of pulmonary edema which is contributing to acute hypoxemia - gastroesophageal reflux disease -Hyperlipidemia -Schizophrenia -History of CVA in the past -Possible ileus NG tube placement -Status post exploratory laparotomy with release of small bowel obstruction PLAN: Continue on current medication regime ,monitoring and symptomatic treatment. Transfer to ICU. Infectious disease consulted. Blood cultures, chest x-ray, urine culture ordered. Prognosis guarded given multiple complex medical issues. Further recommendations to follow. The impression and plan of care has been dictated as directed. : I performed a history and examination of this patient, discussed the same with the dictator. I agree with the dictator's note ,documented as a scribe. Any additional findings or plans will be noted.
[2017-08-02] MEDS: ACETAMINOPHEN IV (For NPO) 1,000 MG in EMPTY BAG 1 BAG IVPB SCH (19:42)
[2017-08-02 21:02] LABS: Glucose,Whole Blood 118 mg/dL (75-99)
[2017-08-02 21:58] LABS: HGB 11.5 gm/dL (11.4-16.0); Hypochromasia Slight; MCH 28.9 pg (25.0-35.0); MCHC 30.4 g/dL (31.0-37.0); MCV 95.3 fL (80.0-100.0); Mean Platelet Volume 7.4; Platelet Count 266 k/uL (150-450); RBC 3.99 m/uL (3.80-5.40); RDW 14.1 % (11.5-15.5); WBC 14.4 k/uL (3.8-10.6)
[2017-08-02] MEDS ORDERED: LACTATED RINGERS 1,000 ML IV SCH (22:15)
--- NOTE | 2017-08-02 22:23 | P.PN ---
Subjective Progress Note Date: 07/31/17 Principal diagnosis: New onset atrial fibrillation and ileus Patient is a 82-year-old female with a history of renal insufficiency, hypertension, hyperlipidemia, colon cancer, breast cancer admitted with atrial fibrillation with a rapid ventricular rate and pneumonia. On 07/31/2017 Patient is having nausea with vomiting and was placed on NG tube. CT abdomen and pelvis showed dilated small bowel loops and possible distal mechanical obstruction. Gen. surgery is following. Currently being continued on conservative management. Otherwise chest x-ray showed atelectasis. Seems to be improving. Currently saturating on 2 L nasal cannula. No fever no chills. Appears to be in mild distress due to nausea and vomiting. Denied any complaints of chest pain or worsening shortness of breath. All other review of systems negative except above. Patient is a poor historian due to altered mental status. Psychiatry has been consulted as well.. Current medications reviewed Objective - Vital Signs Vital signs: Vital Signs Temp 98.0 F 08/02/17 19:48 Pulse 92 08/02/17 20:26 Resp 20 08/02/17 19:48 BP 98/61 08/02/17 19:48 Pulse Ox 90 L 08/02/17 19:48 Intake & Output 08/02/17 08/02/17 08/03/17 06:59 18:59 06:59 Intake Total 900 640 Output Total 300 250 Balance 600 390 Weight 65 kg Intake: Intake, IV Titration 900 640 Amount Dextrose 5%-0.45% NaCl 1, 800 640 000 ml @ 80 mls/hr IV . [id number] [facility] Rx#:[id number] Piperacillin-Tazobactam 3 100 .375 gm In Dextrose/Water 1 50ml.bag @ 12.5 mls/hr IVPB Q8HR [facility] Rx#: [id number] Oral 0 0 Output: Gastric Drainage 50 Urine 300 200 Other: Voiding Method Indwelling Catheter Indwelling Catheter # Voids 0 # Bowel Movements 0 - Exam PHYSICAL EXAMINATION: Patient is lying in the bed comfortably, mild distress, awake alert and seems confused HEENT: Normocephalic. Neck is supple. Pupils reactive. Nostrils clear. Oral cavity is moist. Ears reveal no drainage. Neck reveals no JVD, carotid bruits, or thyromegaly. CHEST EXAMINATION: Trachea is central. Symmetrical expansion. Scattered rhonchi. No wheezing. diminished breath sounds basally CARDIAC: Normal S1, S2 with no gallops. No murmurs ABDOMEN: Soft. Bowel sounds normal. No organomegaly. No abdominal bruits. Extremities: reveal no edema. No clubbing or cyanosis Neurologically awake, alert with well-coordinated movements. No focal deficits noted Skin: No rash or skin lesions. Psychiatric: Could not be assessed completely Musculoskeletal: No joint swelling or deformity. Normal range of motion. - Labs CBC & Chem 7: 08/02/17 21:28 08/02/17 06:08 Labs: Abnormal Lab Results - Last 24 Hours (Table) 08/02/17 08/02/17 08/02/17 Range/Units 06:08 06:08 18:29 WBC 13.1 H (3.8-10.6) k/uL MCHC (31.0-37.0) g/dL Neutrophils # 12.0 H (1.3-7.7) k/uL Lymphocytes # 0.5 L (1.0-4.8) k/uL Sodium 146 H (137-145) mmol/L Potassium 3.3 L (3.5-5.1) mmol/L Carbon Dioxide 41 H* (22-30) mmol/L BUN 43 H (7-17) mg/dL Creatinine 2.50 H (0.52-1.04) mg/dL Glucose 156 H (74-99) mg/dL POC Glucose (mg/dL) 116 H (75-99) mg/dL Magnesium 2.5 H (1.6-2.3) mg/dL Total Protein 4.8 L (6.3-8.2) g/dL Albumin 2.6 L (3.5-5.0) g/dL 08/02/17 08/02/17 Range/Units 20:59 21:28 WBC 14.4 H (3.8-10.6) k/uL MCHC 30.4 L (31.0-37.0) g/dL Neutrophils # (1.3-7.7) k/uL Lymphocytes # (1.0-4.8) k/uL Sodium (137-145) mmol/L Potassium (3.5-5.1) mmol/L Carbon Dioxide (22-30) mmol/L BUN (7-17) mg/dL Creatinine (0.52-1.04) mg/dL Glucose (74-99) mg/dL POC Glucose (mg/dL) 118 H (75-99) mg/dL Magnesium (1.6-2.3) mg/dL Total Protein (6.3-8.2) g/dL Albumin (3.5-5.0) g/dL Assessment and Plan Assessment: Nausea vomiting and abdominal pain secondary to ileus with small bowel mechanical obstruction Sepsis secondary to possible pneumonia Atrial fibrillation with rapid regular rate. Rate controlled now COPD with mild acute exacerbation improved now Acute kidney injury likely prerenal. Possible ATN Hypertension Hyponatremia Colon cancer diagnosed at [facility]. Course unknown Breast cancer history GERD Schizophrenia PEG tube feeding DVT prophylaxis Plan: Patient will be continued on NG tube suction and further medical management for nausea and vomiting. Heart rate is controlled. Continued on antibiotics in the form of Zosyn at this time. Pulmonary and general surgery is following. Prognosis is guarded with multiple medical problems and comorbid conditions. Further recommendations based on the clinical course. Time with Patient: Greater than 30
--- NOTE | 2017-08-02 22:29 | P.PN ---
Subjective Progress Note Date: 08/01/17 Principal diagnosis: New onset atrial fibrillation and ileus Patient is a 82-year-old female with a history of renal insufficiency, hypertension, hyperlipidemia, colon cancer, breast cancer admitted with atrial fibrillation with a rapid ventricular rate and pneumonia. On 07/31/2017 Patient is having nausea with vomiting and was placed on NG tube. CT abdomen and pelvis showed dilated small bowel loops and possible distal mechanical obstruction. Gen. surgery is following. Currently being continued on conservative management. Otherwise chest x-ray showed atelectasis. Seems to be improving. Currently saturating on 2 L nasal cannula. No fever no chills. Appears to be in mild distress due to nausea and vomiting. Denied any complaints of chest pain or worsening shortness of breath. 08/01/2017 patient is having abdominal distention and is having nausea and vomiting. CT abdomen showed small bowel obstruction. Patient does have worsening dyspnea and rhonchi. Continued on antibiotics the form of Zosyn. Chest x-ray showed chronic changes without evidence of any acute pulmonary disease. Patient was taken to OR by surgery releive small bowel obstruction. All other review of systems negative except above. Patient is a poor historian due to altered mental status. Current medications reviewed Objective - Vital Signs Vital signs: Vital Signs Temp 98.0 F 08/02/17 19:48 Pulse 92 08/02/17 20:26 Resp 20 08/02/17 19:48 BP 98/61 08/02/17 19:48 Pulse Ox 90 L 08/02/17 19:48 Intake & Output 08/02/17 08/02/17 08/03/17 06:59 18:59 06:59 Intake Total 900 640 Output Total 300 250 Balance 600 390 Weight 65 kg Intake: Intake, IV Titration 900 640 Amount Dextrose 5%-0.45% NaCl 1, 800 640 000 ml @ 80 mls/hr IV . [id number] [facility] Rx#:[id number] Piperacillin-Tazobactam 3 100 .375 gm In Dextrose/Water 1 50ml.bag @ 12.5 mls/hr IVPB Q8HR [facility] Rx#: [id number] Oral 0 0 Output: Gastric Drainage 50 Urine 300 200 Other: Voiding Method Indwelling Catheter Indwelling Catheter # Voids 0 # Bowel Movements 0 - Exam PHYSICAL EXAMINATION: Patient is lying in the bed comfortably, mild distress, awake alert and seems confused HEENT: Normocephalic. Neck is supple. Pupils reactive. Nostrils clear. Oral cavity is moist. Ears reveal no drainage. Neck reveals no JVD, carotid bruits, or thyromegaly. CHEST EXAMINATION: Trachea is central. Symmetrical expansion. Scattered rhonchi. No wheezing. diminished breath sounds basally CARDIAC: Normal S1, S2 with no gallops. No murmurs ABDOMEN: Soft. Distended. Bowel sounds sluggish to absent. Mild tenderness right lower quadrant. No organomegaly. No abdominal bruits. Extremities: reveal no edema. No clubbing or cyanosis Neurologically awake, alert with well-coordinated movements. No focal deficits noted Skin: No rash or skin lesions. Psychiatric: Could not be assessed completely Musculoskeletal: No joint swelling or deformity. Normal range of motion. - Labs CBC & Chem 7: 08/02/17 21:28 08/02/17 06:08 Labs: Abnormal Lab Results - Last 24 Hours (Table) 08/02/17 08/02/17 08/02/17 Range/Units 06:08 06:08 18:29 WBC 13.1 H (3.8-10.6) k/uL MCHC (31.0-37.0) g/dL Neutrophils # 12.0 H (1.3-7.7) k/uL Lymphocytes # 0.5 L (1.0-4.8) k/uL Sodium 146 H (137-145) mmol/L Potassium 3.3 L (3.5-5.1) mmol/L Carbon Dioxide 41 H* (22-30) mmol/L BUN 43 H (7-17) mg/dL Creatinine 2.50 H (0.52-1.04) mg/dL Glucose 156 H (74-99) mg/dL POC Glucose (mg/dL) 116 H (75-99) mg/dL Magnesium 2.5 H (1.6-2.3) mg/dL Total Protein 4.8 L (6.3-8.2) g/dL Albumin 2.6 L (3.5-5.0) g/dL 08/02/17 08/02/17 Range/Units 20:59 21:28 WBC 14.4 H (3.8-10.6) k/uL MCHC 30.4 L (31.0-37.0) g/dL Neutrophils # (1.3-7.7) k/uL Lymphocytes # (1.0-4.8) k/uL Sodium (137-145) mmol/L Potassium (3.5-5.1) mmol/L Carbon Dioxide (22-30) mmol/L BUN (7-17) mg/dL Creatinine (0.52-1.04) mg/dL Glucose (74-99) mg/dL POC Glucose (mg/dL) 118 H (75-99) mg/dL Magnesium (1.6-2.3) mg/dL Total Protein (6.3-8.2) g/dL Albumin (3.5-5.0) g/dL Assessment and Plan Assessment: Nausea vomiting and abdominal pain secondary to ileus with small bowel mechanical obstruction Sepsis secondary to possible pneumonia Atrial fibrillation with rapid regular rate. Rate controlled now COPD with mild acute exacerbation improved now Acute kidney injury likely prerenal. Possible ATN Hypertension Hyponatremia Colon cancer diagnosed at [facility]. Course unknown Breast cancer history GERD Schizophrenia PEG tube feeding Previous history of CVA/TIA DVT prophylaxis Plan: Patient will be continued on current management and was taken to surgery for laparotomy due to small bowel obstruction. Continued on antibiotics breathing treatments and IV fluids and pain management. Currently the current management and further recommendations based on the clinical course. Pulmonary and general surgery is on board.Prognosis is guarded with multiple medical problems and comorbid conditions. Time with Patient: Greater than 30
[2017-08-02] MEDS: MVI, ADULT NO.4 WITH VIT K 10 ML, TRACE (CONC-1ML/DOSE) 1 ML in AMINO ACID 5%-D25W+LYTE... IV SCH ×3 (22:34)
[2017-08-02] MEDS: FAT EMULSION 20% 250 ML in EMPTY BAG 1 BAG IV SCH (22:34)
[2017-08-02] MEDS: ATORVASTATIN 10 MG TAB PO SCH (22:50)
[2017-08-02] MEDS: OLANZapine ODT 10 MG TAB PO SCH (22:51)
[2017-08-03] MEDS: KETOROLAC 30 MG/ML 1 ML VIAL IVP SCH (00:22)
[2017-08-03] MEDS: HEPARIN SODIUM,PORCINE 5,000 UNIT/ML 1 ML VIAL SQ SCH ×3 (00:23→16:20)
[2017-08-03] MEDS: PIPERACILLIN-TAZOBACTAM 3.375 GM in DEXTROSE/WATER 1 50ML.BAG IVPB SCH ×3 (00:28→16:20)
[2017-08-03] MEDS: ACETAMINOPHEN IV (For NPO) 1,000 MG in EMPTY BAG 1 BAG IVPB SCH ×3 (03:17→16:23)
[2017-08-03 05:59] LABS: Calcium 8.6 mg/dL (8.4-10.2); Magnesium 2.5 mg/dL (1.6-2.3); Potassium 3.1 mmol/L (3.5-5.1)
[2017-08-03 06:17] LABS: Basophils # (A) 0.1 k/uL (0-0.2); Basophils % (A) 1 %; Eosinophils # (A) 0.7 k/uL (0-0.7); Eosinophils % (A) 5 %; HCT 35.7 % (34.0-46.0); Hypochromasia Slight; Lymphocytes # (A) 0.5 k/uL (1.0-4.8); Lymphocytes % (A) 3 %; MCH 29.8 pg (25.0-35.0); MCHC 30.8 g/dL (31.0-37.0); MCV 96.6 fL (80.0-100.0); Mean Platelet Volume 7.1; Monocytes # (A) 0.3 k/uL (0-1.0); Monocytes % (A) 2 %; Neutrophils # (A) 11.9 k/uL (1.3-7.7); Neutrophils % (A) 88 %; Platelet Count 235 k/uL (150-450); RDW 14.2 % (11.5-15.5); WBC 13.5 k/uL (3.8-10.6)
[2017-08-03] MEDS: IPRATROPIUM-ALBUTEROL 3 ML NEB INHALATION SCH ×4 (07:36→19:31)
[2017-08-03] MEDS: POTASSIUM CHLORIDE 20 MEQ in WATER FOR INJECTION 1 100ML.BAG IVPB SCH ×2 (08:21→16:21)
[2017-08-03] MEDS: NYSTATIN 100,000 UNIT/ML SUSP 500,000 UNIT/5 ML CUP PO SCH ×4 (08:22→22:03)
[2017-08-03] MEDS: PANTOPRAZOLE 40 MG/10 ML VIAL IV SCH (08:23)
[2017-08-03] MEDS: GABAPENTIN 300 MG CAP PO SCH ×2 (08:23→20:00)
[2017-08-03] MEDS: CALCIUM CARB-VIT D 500MG-200UN 1 EACH TAB PO SCH ×2 (08:24→21:27)
[2017-08-03] MEDS: DOCUSATE 100 MG CAP PO SCH ×2 (08:24→20:00)
--- NOTE | 2017-08-03 12:39 | P.PN ---
Subjective Progress Note Date: 08/03/17 Principal diagnosis: S/P laparotomy with release of small bowel obstruction The patient is seen on rounds. She is alert. She was transferred to the ICU secondary to some respiratory issues last night. She denies any trouble breathing, abdominal pain or other complaints Objective - Vital Signs Vital signs: Vital Signs Temp 97.3 F L 08/03/17 08:00 Pulse 83 08/03/17 11:26 Resp 16 08/03/17 11:26 BP 118/69 08/03/17 11:00 Pulse Ox 95 08/03/17 11:00 Intake & Output 08/02/17 08/03/17 08/03/17 18:59 06:59 18:59 Intake Total 640 2178 691 Output Total 250 290 230 Balance 390 1888 461 Weight 66.2 kg 66.2 kg Intake: IV 2178 271 Dextrose 5%-0.45% NaCl 1, 720 80 000 ml @ 80 mls/hr IV . [id number] [facility] Rx#:[id number] Fat Emulsion 20% 250 ml 168 21 In Empty Bag 1 bag @ 21 mls/hr IV [id number] [facility] Rx#:[id number] Lactated Ringers 1,000 ml 1000 @ 999 mls/hr IV .Q1H1M [facility] Rx#:[id number] Mvi, Adult No.4 with Vit 240 120 K 10 ml Trace (Conc-1Ml/ Dose) 1 ml In Amino Acid 5%-D25w+Lytes*E* 1,000 ml @ 30 mls/hr IV .Q24H [facility] Rx#:[id number] Piperacillin-Tazobactam 3 50 50 .375 gm In Dextrose/Water 1 50ml.bag @ 12.5 mls/hr IVPB Q8HR [facility] Rx#: [id number] Intake, IV Titration 640 300 Amount ACETAMINOPHEN IV (For NPO 100 ) 1,000 mg In Empty Bag 1 bag @ 400 mls/hr IVPB Q6H [facility] Rx#:[id number] Dextrose 5%-0.45% NaCl 1, 640 000 ml @ 80 mls/hr IV . [id number] [facility] Rx#:[id number] Potassium Chloride 20 meq 200 In Water For Injection 1 100ml.bag @ 50 mls/hr IVPB Q2HR [facility] Rx#: [id number] Oral 0 Other 120 Output: Gastric Drainage 50 Urine 200 290 230 Other: Voiding Method Indwelling Catheter Indwelling Catheter Indwelling Catheter # Voids 0 0 # Bowel Movements 0 - Constitutional Constitutional Comment(s): Does not appear particularly anxious this morning General appearance: Present: cooperative, no acute distress - Respiratory Respiratory: bilateral: diminished (At the bases otherwise fairly clear) - Gastrointestinal General gastrointestinal: Present: decreased bowel sounds, soft Localized gastrointestinal: surgical scar: diffuse (Incision healing without cellulitis or hematoma) - Labs CBC & Chem 7: 08/03/17 05:35 08/03/17 05:35 Labs: Abnormal Lab Results - Last 24 Hours (Table) 08/02/17 08/02/17 08/02/17 Range/Units 18:29 20:59 21:28 WBC 14.4 H (3.8-10.6) k/uL RBC (3.80-5.40) m/uL Hgb (11.4-16.0) gm/dL MCHC 30.4 L (31.0-37.0) g/dL Neutrophils # (1.3-7.7) k/uL Lymphocytes # (1.0-4.8) k/uL Sodium (137-145) mmol/L Potassium (3.5-5.1) mmol/L Carbon Dioxide (22-30) mmol/L BUN (7-17) mg/dL Creatinine (0.52-1.04) mg/dL Glucose (74-99) mg/dL POC Glucose (mg/dL) 116 H 118 H (75-99) mg/dL Magnesium (1.6-2.3) mg/dL 08/03/17 08/03/17 Range/Units 05:35 05:35 WBC 13.5 H (3.8-10.6) k/uL RBC 3.70 L (3.80-5.40) m/uL Hgb 11.0 L (11.4-16.0) gm/dL MCHC 30.8 L (31.0-37.0) g/dL Neutrophils # 11.9 H (1.3-7.7) k/uL Lymphocytes # 0.5 L (1.0-4.8) k/uL Sodium 147 H (137-145) mmol/L Potassium 3.1 L (3.5-5.1) mmol/L Carbon Dioxide 44 H* (22-30) mmol/L BUN 51 H (7-17) mg/dL Creatinine 2.24 H (0.52-1.04) mg/dL Glucose 196 H (74-99) mg/dL POC Glucose (mg/dL) (75-99) mg/dL Magnesium 2.5 H (1.6-2.3) mg/dL Microbiology - Last 24 Hours (Table) 08/02/17 21:45 Urine Culture - Preliminary Urine,Catheterized Assessment and Plan (1) Small bowel obstruction Current Visit: Yes Status: Acute Code(s): K56.609 - UNSP INTESTNL OBST, UNSP TO PARTIAL VERSUS COMPLETE OBST SNOMED Code(s): 533034035 (2) New onset atrial fibrillation Current Visit: Yes Status: Acute Code(s): I48.91 - UNSPECIFIED ATRIAL FIBRILLATION SNOMED Code(s): 30438318 Plan: She looks fairly good from a surgical standpoint. She could be transferred to the medical floor when okay with pulmonary and internal medicine. We'll continue the NG tube at this point until the output decreases. She is progressing slowly.
--- NOTE | 2017-08-03 12:47 | P.PN ---
<Ronel Keenan M - Last Filed: 08/03/17 12:32> Subjective Progress Note Date: 08/03/17 Principal diagnosis: Fever, shortness of breath This is an 82-year-old female that we saw in consultation. She has a history of breast and colon cancer as well as hypertension. She apparently lives at a [facility] and is seen by a visiting physician by the name of Dr. Beth. She had weakness. She also had cough and shortness of breath. Not producing any phlegm. She had a temperature elevation of 101.2. She also was found have atrial fibrillation with rapid ventricular response with a heart rate about 1 20 bpm. She appears to be a little short of breath even at the current time. Chest x-ray initially shows some patchy infiltrates in the right midlung and right lower lobe potentially consistent with pneumonia. Again her symptoms could be consistent with heart failure and/or pneumonia. Anyway she is doing a bit better not a lot. Not a particularly good historian. On 08/01/2017 patient seen in follow-up on selective care unit. His any worsening dyspnea, lung sounds are positive for scattered rhonchi. She remains on 3 L per nasal cannula with O2 sat at 94%. Afebrile, hemodynamically stable. She still has NG tube in place for persistent abdominal distention. Abdominqal/pelvis CT from 07/31/2017 showed dilated small bowel consistent with distal mechanical small bowel obstruction. Chest x-ray from 08/01/2017 has been reviewed and showed chronic changes without evidence of any acute pulmonary disease. Surgery is planned and on laparotomy with release of small bowel obstruction at 1300 today. From pulmonary/critical care standpoint patient is stable to go to surgery today. On 08/02/2017 patient is seen , status post exploratory laparotomy with release of bowel obstruction, postop day 1. Patient appears to be lethargic, arousable to verbal stimuli, afebrile, hemodynamically stable, slightly tachycardic with a heart rate of 10-105 BPM. Is on 2 L per nasal cannula, with O2 sat at 91%. When necessary doses of Dilaudid for incisional pain. NG tube is in place to low intermittent suction with a total of 600 mL of liquid green output last 24 hours. Mid abdominal incision covered with surgical dressing. No bowel sounds auscultated, abdomen is soft, tender to palpation. Labs been reviewed, WBCs up to 13.1, hemoglobin is 12.8, serum sodium is up to 46, serum potassium is 3.3, carbon dioxide is 41, B1 is 33, creatinine is 2.5. Patient has been initiated on D5 0.45 normal saline and 80 mL per hour. Remains nothing by mouth. TPN will be started today, patient did receive a PICC line. Culture results have been reviewed and blood culture shows no growth since admission. On 08/03/2017 patient is seen again. She got transferred to the intensive care last night for concerns of decreased level of consciousness, fever, relative hypotension and tachycardia, and decreased respirations. Patient was suspected to have pain medication related hypotension, was given a dose of Narcan, with improvement of her level of consciousness, respirations, hypoxia, blood pressure. Chest x-ray was obtained in the evening of 2017 and showed pulmonary vascular congestion, pleural effusions, and basilar mild infiltrates. Patient's inspiratory effort was poor during the time of the chest x-ray. Patient did spike a temp of 102.1F prior to the transfer. New set of blood cultures and urine culture was collected and sent yesterday. Patient was given 1 L of 0.9 normal saline IV bolus, her maintenance IV fluid is D5 0.45 normal saline at 80 ML per hour, TPN was started and is currently running at 30 ML per hour, lipids are running at 21 ML per hour. No vasopressor support was necessary as the patient responded well to IV fluids and the Narcan. Microbiology has been reviewed, urine culture collected on 09/2017 is pending. Blood culture collected on 07/25/2017 shows no growth. This morning patient is much more awake, alert, responds to questions appropriately. She is alert, oriented 3. Appropriate, she remembered her surgeon this morning. Her lung sounds are clear to auscultation, no rales, no rhonchi, no wheezing. She denies any pain. She is on 3 L per nasal cannula with O2 sat 95%. She has not had any febrile episodes this morning. Continues on Zosyn. She still has NG tube in place, to low intermittent suction, bowel sounds are now present, hypoactive. Abdomen is soft, nontender. Surgical incision is clean dry and intact and covered with surgical dressing. She denies any pain. Objective - Vital Signs Vital signs: Vital Signs Temp 97.3 F L 08/03/17 08:00 Pulse 83 08/03/17 11:26 Resp 16 08/03/17 11:26 BP 118/69 08/03/17 11:00 Pulse Ox 95 08/03/17 11:00 Intake & Output 08/02/17 08/03/17 08/03/17 18:59 06:59 18:59 Intake Total 640 2178 691 Output Total 250 290 230 Balance 390 1888 461 Weight 66.2 kg 66.2 kg Intake: IV 2178 271 Dextrose 5%-0.45% NaCl 1, 720 80 000 ml @ 80 mls/hr IV . [id number] [facility] Rx#:[id number] Fat Emulsion 20% 250 ml 168 21 In Empty Bag 1 bag @ 21 mls/hr IV MoWeFr@1800 [facility] Rx#:[id number] Lactated Ringers 1,000 ml 1000 @ 999 mls/hr IV .Q1H1M [facility] Rx#:[id number] Mvi, Adult No.4 with Vit 240 120 K 10 ml Trace (Conc-1Ml/ Dose) 1 ml In Amino Acid 5%-D25w+Lytes*E* 1,000 ml @ 30 mls/hr IV .Q24H [facility] Rx#:[id number] Piperacillin-Tazobactam 3 50 50 .375 gm In Dextrose/Water 1 50ml.bag @ 12.5 mls/hr IVPB Q8HR [facility] Rx#: [id number] Intake, IV Titration 640 300 Amount ACETAMINOPHEN IV (For NPO 100 ) 1,000 mg In Empty Bag 1 bag @ 400 mls/hr IVPB Q6H [facility] Rx#:[id number] Dextrose 5%-0.45% NaCl 1, 640 000 ml @ 80 mls/hr IV . [id number] [facility] Rx#:[id number] Potassium Chloride 20 meq 200 In Water For Injection 1 100ml.bag @ 50 mls/hr IVPB Q2HR [facility] Rx#: [id number] Oral 0 Other 120 Output: Gastric Drainage 50 Urine 200 290 230 Other: Voiding Method Indwelling Catheter Indwelling Catheter Indwelling Catheter # Voids 0 0 # Bowel Movements 0 - Exam GENERAL EXAM: Alert, in no apparent distress. HEAD: Normocephalic/atraumatic. EYES: Normal reaction of pupils, equal size. Conjunctiva pink, sclera white. NOSE: Clear with pink turbinates. NG tube is in place to low intermittent suction for persistent abdominal distention THROAT: No erythema or exudates. NECK: No masses, no JVD, no thyroid enlargement, no adenopathy. CHEST: No chest wall deformity. Symmetrical expansion. LUNGS: Equal air entry, clear to auscultation, no rales, no rhonchi no wheezes. CVS: Regular rate and rhythm, normal S1 and S2, no gallops, no murmurs, no rubs ABDOMEN: Soft, tender to palpation, minimal abdominal surgical incision is clean dry and intact, covered with surgical dressing.. EXTREMITIES: No clubbing, no edema, no cyanosis, 2+ pulses and upper and lower extremities. MUSCULOSKELETAL: Muscle strength and tone normal. SPINE: No scoliosis or deformity SKIN: No rashes CENTRAL NERVOUS SYSTEM: Somnolent, but easily arousable to verbal stimuli. No focal deficits, tone is normal in all 4 extremities. PSYCHIATRIC: Alert and oriented -1. Appropriate affect. Intact judgment and insight. - Labs CBC & Chem 7: 08/03/17 05:35 08/03/17 05:35 Labs: Abnormal Lab Results - Last 24 Hours (Table) 08/02/17 08/02/17 08/02/17 Range/Units 18:29 20:59 21:28 WBC 14.4 H (3.8-10.6) k/uL RBC (3.80-5.40) m/uL Hgb (11.4-16.0) gm/dL MCHC 30.4 L (31.0-37.0) g/dL Neutrophils # (1.3-7.7) k/uL Lymphocytes # (1.0-4.8) k/uL Sodium (137-145) mmol/L Potassium (3.5-5.1) mmol/L Carbon Dioxide (22-30) mmol/L BUN (7-17) mg/dL Creatinine (0.52-1.04) mg/dL Glucose (74-99) mg/dL POC Glucose (mg/dL) 116 H 118 H (75-99) mg/dL Magnesium (1.6-2.3) mg/dL 08/03/17 08/03/17 Range/Units 05:35 05:35 WBC 13.5 H (3.8-10.6) k/uL RBC 3.70 L (3.80-5.40) m/uL Hgb 11.0 L (11.4-16.0) gm/dL MCHC 30.8 L (31.0-37.0) g/dL Neutrophils # 11.9 H (1.3-7.7) k/uL Lymphocytes # 0.5 L (1.0-4.8) k/uL Sodium 147 H (137-145) mmol/L Potassium 3.1 L (3.5-5.1) mmol/L Carbon Dioxide 44 H* (22-30) mmol/L BUN 51 H (7-17) mg/dL Creatinine 2.24 H (0.52-1.04) mg/dL Glucose 196 H (74-99) mg/dL POC Glucose (mg/dL) (75-99) mg/dL Magnesium 2.5 H (1.6-2.3) mg/dL Microbiology - Last 24 Hours (Table) 08/02/17 21:45 Urine Culture - Preliminary Urine,Catheterized Assessment and Plan Plan: Plan: Smoking: #1. Sepsis secondary to possible right lower lobe pneumonia, or acute small bowel obstruction, and acute urinary tract infection, she presented with febrile illness, tachycardia, A. fib RVR, weakness, leucocytosis, cough without sputum production, hypotension, urinalysis positive for large amount of leukocyte esterase, WBCs, bacteria and mucus. X-ray on 07/25/2017 showed right mid and lower lung patchy and confluent consolidation. #2. Acute kidney failure secondary to sepsis and hypotension #3. COPD exacerbation #4. New-onset A. fib with RVR, present on admission #5. History of CVA/TIA #6. Hyperlipidemia #7. Hypertension #8. History of colon and breast CA, status post post-double mastectomy #9. 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 Small bowel obstruction, status post exposure laparotomy with release of small bowel obstruction, postop day 2. #12. Acute hypoxic respiratory failure secondary to hypoventilation may have been related to sedation. Improved Plan: Patient is doing well, awake, alert. Initiate aggressive pulmonary toileting, incentive spirometer to the bedside. Patient responded well to IV fluid bolus, blood pressures are stable, patient did not require any vasopressor support. Awaiting final results of the urine and blood cultures done last night on 2017. Continue Zosyn. Continue D5.45 normal saline at 80 ML per hour, TPN and lipids. NG tube is to low intermittent suction. Continue GI/DVT prophylaxis. Continue on Zosyn, continue breathing treatments. Correct potassium per protocol, pain control. I performed a history & physical examination of the patient and discussed their management with my nurse practitioner, Ronel Keenan. I reviewed the nurse practitioner's note and agree with the documented findings and plan of care. Lung sounds are diminished. The findings and the impression was discussed with the patient. I attest to the documentation by the nurse practitioner. Time with Patient: Greater than 30 <Celestine Peacock - Last Filed: 08/03/17 16:06> Objective - Vital Signs Vital signs: Vital Signs Temp 98.0 F 08/03/17 12:00 Pulse 88 08/03/17 15:03 Resp 18 08/03/17 14:00 BP 112/84 08/03/17 14:00 Pulse Ox 95 08/03/17 14:00 Intake & Output 08/02/17 08/03/17 08/03/17 18:59 06:59 18:59 Intake Total 640 2178 691 Output Total 250 290 260 Balance 390 1888 431 Weight 66.2 kg 66.2 kg Intake: IV 2178 271 Dextrose 5%-0.45% NaCl 1, 720 80 000 ml @ 80 mls/hr IV . [id number] [facility] Rx#:[id number] Fat Emulsion 20% 250 ml 168 21 In Empty Bag 1 bag @ 21 mls/hr IV MoWeFr@1800 [facility] Rx#:[id number] Lactated Ringers 1,000 ml 1000 @ 999 mls/hr IV .Q1H1M [facility] Rx#:[id number] Mvi, Adult No.4 with Vit 240 120 K 10 ml Trace (Conc-1Ml/ Dose) 1 ml In Amino Acid 5%-D25w+Lytes*E* 1,000 ml @ 30 mls/hr IV .Q24H [facility] Rx#:[id number] Piperacillin-Tazobactam 3 50 50 .375 gm In Dextrose/Water 1 50ml.bag @ 12.5 mls/hr IVPB Q8HR [facility] Rx#: [id number] Intake, IV Titration 640 300 Amount ACETAMINOPHEN IV (For NPO 100 ) 1,000 mg In Empty Bag 1 bag @ 400 mls/hr IVPB Q6H [facility] Rx#:[id number] Dextrose 5%-0.45% NaCl 1, 640 000 ml @ 80 mls/hr IV . [id number] [facility] Rx#:[id number] Potassium Chloride 20 meq 200 In Water For Injection 1 100ml.bag @ 50 mls/hr IVPB Q2HR [facility] Rx#: [id number] Oral 0 Other 120 Output: Gastric Drainage 50 Urine 200 290 260 Other: Voiding Method Indwelling Catheter Indwelling Catheter Indwelling Catheter # Voids 0 0 # Bowel Movements 0 - Labs CBC & Chem 7: 08/03/17 05:35 08/03/17 05:35 Labs: Abnormal Lab Results - Last 24 Hours (Table) 08/02/17 08/02/17 08/02/17 Range/Units 18:29 20:59 21:28 WBC 14.4 H (3.8-10.6) k/uL RBC (3.80-5.40) m/uL Hgb (11.4-16.0) gm/dL MCHC 30.4 L (31.0-37.0) g/dL Neutrophils # (1.3-7.7) k/uL Lymphocytes # (1.0-4.8) k/uL Sodium (137-145) mmol/L Potassium (3.5-5.1) mmol/L Carbon Dioxide (22-30) mmol/L BUN (7-17) mg/dL Creatinine (0.52-1.04) mg/dL Glucose (74-99) mg/dL POC Glucose (mg/dL) 116 H 118 H (75-99) mg/dL Magnesium (1.6-2.3) mg/dL 08/03/17 08/03/17 Range/Units 05:35 05:35 WBC 13.5 H (3.8-10.6) k/uL RBC 3.70 L (3.80-5.40) m/uL Hgb 11.0 L (11.4-16.0) gm/dL MCHC 30.8 L (31.0-37.0) g/dL Neutrophils # 11.9 H (1.3-7.7) k/uL Lymphocytes # 0.5 L (1.0-4.8) k/uL Sodium 147 H (137-145) mmol/L Potassium 3.1 L (3.5-5.1) mmol/L Carbon Dioxide 44 H* (22-30) mmol/L BUN 51 H (7-17) mg/dL Creatinine 2.24 H (0.52-1.04) mg/dL Glucose 196 H (74-99) mg/dL POC Glucose (mg/dL) (75-99) mg/dL Magnesium 2.5 H (1.6-2.3) mg/dL Microbiology - Last 24 Hours (Table) 08/02/17 21:45 Urine Culture - Preliminary Urine,Catheterized Assessment and Plan Plan: Is a joint evaluations was done along with a nurse practitioner. The patient undergone expiratory laparotomy and lysis of adhesions and the patient is postop day #2. She is much more alert and awake compared to yesterday. NG tube is in place. She has some sluggish hypoactive bowel sounds. No bowel movement yet. No abdominal distention. She was slightly overmedicated with Dilaudid and the medication was discontinued and the patient was briefly given Narcan overnight and she is awake and alert this morning. Hemodynamically stable. She is on IV fluids with D5 half-normal saline at the rate of 80 mL an hour. TPN was initiated. She remains on IV Zosyn as an empiric antibiotic coverage. She is utilizing incentive spirometer. Sodium level is elevated still at 147 and the renal function is improving with a creatinine being down to 2.2 this morning. Based on her ongoing postoperative care needs, the patient will be kept in ICU follow 24 hours. We'll continue to follow. Potassium will be replaced. Monitor renal function. Continue antibiotics. Continue IV fluids. Continue TPN. We'll follow.
[2017-08-03] MEDS: DEXTROSE 5%-0.45% NACL 1,000 ML IV SCH ×2 (16:21→20:47)
[2017-08-03] MEDS: OLANZapine ODT 10 MG TAB PO SCH (20:00)
[2017-08-03] MEDS: ATORVASTATIN 10 MG TAB PO SCH (20:00)
[2017-08-03] MEDS: MVI, ADULT NO.4 WITH VIT K 10 ML, TRACE (CONC-1ML/DOSE) 1 ML in AMINO ACID 5%-D25W+LYTE... IV SCH ×3 (21:16)
[2017-08-03] MEDS: ACETAMINOPHEN TAB 325 MG TAB PO SCH (21:17)
[2017-08-03] MEDS ORDERED: MVI, ADULT NO.4 WITH VIT K 10 ML, TRACE (CONC-1ML/DOSE) 1 ML in AMINO ACID 5%-D25W+LYTE... IV SCH ×3 (22:00)
--- NOTE | 2017-08-03 23:36 | CONS ---
CONSULTATION DATE OF SERVICE: 08/03/2017. REASON FOR CONSULTATION: Fever and sepsis. HISTORY OF PRESENT ILLNESS: The patient is an 82-year-old female with past medical history significant for breast and colon cancer and schizophrenia, admitted from adult foster care. She was brought into the ER on 07/25/2017 with a chief complaint of generalized weakness and not feeling well. In the ER at that time, the patient was hypotensive requiring fluid boluses. It was initially thought to be related to possible right lower lobe pneumonia. The patient has been giving a history of some nausea and vomiting and some vague abdominal pain that has been investigated further with a CT of the abdomen and pelvis which did show mechanical small bowel obstruction at the terminal ileum with a possible stricture. She was taken to the OR on the 08/01/[address] Fleming and the patient did have exploratory laparotomy with release of small-bowel obstruction. No documented bowel ischemia or perforation. The patient has been on the medical floor. The patient yesterday became lethargic, weak, hypotensive. She did have a new fever of 102.1 degrees Fahrenheit, for which the patient has been transferred to the ICU. The patient did have repeat blood cultures on the . She did have a UA sent. The patient has been maintained on Zosyn. ID was consulted for further recommendation regarding antibiotic therapy. Most of this information has been obtained from review of patient's chart and from the nursing staff. The patient was lethargic and sleepy at the time of admission and would not answer any questions. REVIEW OF SYSTEMS: Could not be reliably obtained. The positive points have been mentioned in the HPI. PAST MEDICAL HISTORY: Significant for colon and breast cancer, hypertension, hyperlipidemia, CVA, TIA , COPD, history of breast and colon surgery. SOCIAL HISTORY: Remote history of smoking. No drinking or drug use. FAMILY HISTORY: No pertinent findings noticed. ALLERGIES: No known drug allergies. MEDICATIONS: Include the patient is currently on Ultram, MiraLAX, Bactrim, Protonix, Zofran, Zyprexa, Mycostatin, Ativan, DuoNeb and Tylenol. EXAMINATION: Her blood pressure is 116/70 with a pulse of 103, temperature 97.4. She is 93% on 3 L nasal cannula. GENERAL DESCRIPTION: An elderly female, lying in bed in no distress. No tachypnea of muscle of respiration use. HEENT: Shows slight pallor. No scleral icterus. Oral mucosa is dry. No pharyngeal erythema or thrush NECK: Trachea central, no thyromegaly. LUNGS: Unlabored breathing with decreased breath sounds at the bases. No wheeze. HEART: S1, S2. Regular. ABDOMEN: Soft, no distention or rigidity. No organomegaly EXTREMITIES: No edema of the feet. SKIN: No rash. No masses palpable NEUROLOGIC: The patient is lethargic. No signs of meningeal irritation. LABS: Hemoglobin is 11, white count 13.5. Yesterday white count was 14.4. BUN of 51, creatinine is 2.24. Blood culture obtained has been pending so far. A chest x- ray showed persistent changes of congestive heart failure. DIAGNOSTIC IMPRESSION AND PLAN: Patient presented with fever, noted to have an elevated white count 14.4. The patient was admitted to the patient with vomiting and weakness, likely right lower lobe aspiration pneumonia and small bowel obstruction, status post laparotomy and release of the same. She did have a positive UA, although cultures have been negative so far. Likely dealing with a component of aspiration pneumonia not related to her surgery PLAN: 1. We will try to obtain sputum for Gram stain, culture and sensitivity. 2. Patient be given Zosyn with dose adjusted for kidney function. 3. Gentle IV fluid. 4-we'll follow-up clinical condition and culture to further adjust her medication if needed MMODL / IJN: [id number] / MTDD
[2017-08-04] MEDS: PIPERACILLIN-TAZOBACTAM 3.375 GM in DEXTROSE/WATER 1 50ML.BAG IVPB SCH ×3 (01:28→17:14)
[2017-08-04] MEDS: HEPARIN SODIUM,PORCINE 5,000 UNIT/ML 1 ML VIAL SQ SCH ×3 (01:28→17:14)
[2017-08-04 05:27] LABS: Basophils # (A) 0.1 k/uL (0-0.2); Basophils % (A) 0 %; Eosinophils # (A) 0.7 k/uL (0-0.7); Eosinophils % (A) 5 %; HCT 35.5 % (34.0-46.0); HGB 10.6 gm/dL (11.4-16.0); Hypochromasia Marked; Lymphocytes # (A) 0.5 k/uL (1.0-4.8); Lymphocytes % (A) 3 %; MCH 28.9 pg (25.0-35.0); MCHC 29.9 g/dL (31.0-37.0); MCV 96.7 fL (80.0-100.0); Mean Platelet Volume 8.2; Monocytes # (A) 0.4 k/uL (0-1.0); Monocytes % (A) 3 %; Neutrophils # (A) 11.8 k/uL (1.3-7.7); Neutrophils % (A) 88 %; Platelet Count 221 k/uL (150-450); RBC 3.67 m/uL (3.80-5.40); RDW 15.4 % (11.5-15.5); WBC 13.4 k/uL (3.8-10.6)
[2017-08-04 05:39] LABS: Calcium 8.5 mg/dL (8.4-10.2); Magnesium 2.4 mg/dL (1.6-2.3); Phosphorus 2.5 mg/dL (2.5-4.5)
[2017-08-04 05:55] LABS: Potassium 2.8 mmol/L (3.5-5.1)
[2017-08-04] MEDS ORDERED: Potassium Replacement Protocol 1 EACH MISC MISCELLANE PRN (05:56)
[2017-08-04] MEDS: DEXTROSE 5%-0.45% NACL 1,000 ML IV SCH ×4 (06:53→17:18)
[2017-08-04] MEDS: POTASSIUM CHLORIDE ORAL LIQUID 40 MEQ/30 ML CUP NG-TUBE SCH ×2 (06:53→08:32)
[2017-08-04] MEDS: IPRATROPIUM-ALBUTEROL 3 ML NEB INHALATION SCH ×4 (07:48→19:31)
[2017-08-04] MEDS: MVI, ADULT NO.4 WITH VIT K 10 ML, TRACE (CONC-1ML/DOSE) 1 ML in AMINO ACID 5%-D25W+LYTE... IV SCH ×3 (08:14)
[2017-08-04] MEDS: NYSTATIN 100,000 UNIT/ML SUSP 500,000 UNIT/5 ML CUP PO SCH ×4 (08:33→20:53)
[2017-08-04] MEDS: ACETAMINOPHEN TAB 325 MG TAB PO SCH ×2 (08:33→20:52)
[2017-08-04] MEDS: CALCIUM CARB-VIT D 500MG-200UN 1 EACH TAB PO SCH ×2 (08:33→20:52)
[2017-08-04] MEDS: GABAPENTIN 300 MG CAP PO SCH ×2 (08:33→20:52)
[2017-08-04] MEDS: PANTOPRAZOLE 40 MG/10 ML VIAL IV SCH (08:34)
[2017-08-04] MEDS ORDERED: HYDROmorphone 2 MG/ML 1 ML SYRINGE IVP PRN (09:02)
[2017-08-04] MEDS: DOCUSATE 100 MG CAP PO SCH ×2 (09:06→20:52)
--- NOTE | 2017-08-04 11:17 | CDI ---
Last Revision, June 2017 Documentation Clarification Form Date: 08/04/2017 11:08:00 AM From: Lizbeth BallesterosDELISA, CCDS Admit Date: 07/25/2017 4:10:00 PM Patient Name: Sissy Tsai Visit Number: [id number] Discharge Date: ATTENTION: The Clinical Documentation Specialists (CDI) and [facility] Coding Staff appreciate your assistance in clarifying documentation. Please respond to the clarification below the line at the bottom and electronically sign. The CDI & [facility] Coding staff will review the response and follow-up if needed. Please note: Queries are made part of the Legal Health Record. If you have any questions, please contact the author of this message via ITS. Dr. Sanju Jackson: This 82 yo female was initially admitted with Sepsis & Pneumonia, she developed a SBO and is status post a laparotomy w/release of the SBO. As of 07/30 progress notes, the patient has become confused, required a sitter, transferred to ICU with respiratory difficulty. History/Risk factors: Colon & Breast CA, COPD, CVA, Hyperlipidemia, Hypertension & Schizophrenia Clinical Indicators: Confused, agitated, pulling at IV lines per documentation. Labs: WBC 13.1-14.4, Neut 12.0, Na 146, K 2.8, CO2 44, BUN 51, Cr 2.24 Treatment: IV fluids, IV fluid boluses, IV Rocephin, IV Azithromycin, Albuterol INH, Ventimask & Bipap Consults: Pulmonary/Critical Care, Surgery, Psychiatry, Infectious disease, Nephrology In your professional opinion, can you please clarify the specific type of encephalopathy, if known? Anoxic Encephalopathy Hypertensive Encephalopathy Metabolic Encephalopathy Septic Encephalopathy Toxic Encephalopathy Other, please specify Unable to determine Please continue to document in your progress notes and discharge summary in order to capture severity of illness and risk of mortality. Include clinical findings that support your diagnosis. Metabolic Encephalopathy MTDD
--- NOTE | 2017-08-04 11:40 | XR ---
EXAMINATION TYPE: XR chest 1V portable DATE OF EXAM: 08/04/2017 CLINICAL HISTORY: Difficulty breathing progress study. TECHNIQUE: Single AP portable upright view of the chest is obtained. COMPARISON: Chest x-ray from 2 and 3 days earlier and older studies. FINDINGS: There is stable left-sided PICC line and orogastric tube. Pneumoperitoneum below right hem idiaphragm is felt present. There is persistent cardiomegaly with central congestion and patchy bibas ilar infiltrate and/or atelectasis as well as atherosclerotic aorta. Degenerative change bilateral gl enohumeral joints is noted. IMPRESSION: 1. Persistent pneumoperitoneum. 2. Cardiomegaly with central vascular congestion and patchy bibasilar atelectasis and/or infiltrate a ll redemonstrated. No significant change from most recent x-ray. Results of free air communicated to patient's ICU nurse. Patient had interval open abdominal surgery August 01 which likely accounts for finding.
[2017-08-04] MEDS ORDERED: POTASSIUM CHLORIDE ORAL LIQUID 40 MEQ/30 ML CUP NG-TUBE SCH (12:00)
--- NOTE | 2017-08-04 12:00 | P.PN ---
<Ronel Keenan M - Last Filed: 08/04/17 11:48> Subjective Progress Note Date: 08/04/17 Principal diagnosis: Fever, shortness of breath This is an 82-year-old female that we saw in consultation. She has a history of breast and colon cancer as well as hypertension. She apparently lives at a [facility] home and is seen by a visiting physician by the name of Dr. Beth. She had weakness. She also had cough and shortness of breath. Not producing any phlegm. She had a temperature elevation of 101.2. She also was found have atrial fibrillation with rapid ventricular response with a heart rate about 1 20 bpm. She appears to be a little short of breath even at the current time. Chest x-ray initially shows some patchy infiltrates in the right midlung and right lower lobe potentially consistent with pneumonia. Again her symptoms could be consistent with heart failure and/or pneumonia. Anyway she is doing a bit better not a lot. Not a particularly good historian. On 08/01/2017 patient seen in follow-up on selective care unit. His any worsening dyspnea, lung sounds are positive for scattered rhonchi. She remains on 3 L per nasal cannula with O2 sat at 94%. Afebrile, hemodynamically stable. She still has NG tube in place for persistent abdominal distention. Abdominqal/pelvis CT from 07/31/2017 showed dilated small bowel consistent with distal mechanical small bowel obstruction. Chest x-ray from 08/01/2017 has been reviewed and showed chronic changes without evidence of any acute pulmonary disease. Surgery is planned and on laparotomy with release of small bowel obstruction at 1300 today. From pulmonary/critical care standpoint patient is stable to go to surgery today. On 08/02/2017 patient is seen , status post exploratory laparotomy with release of bowel obstruction, postop day 1. Patient appears to be lethargic, arousable to verbal stimuli, afebrile, hemodynamically stable, slightly tachycardic with a heart rate of 10-105 BPM. Is on 2 L per nasal cannula, with O2 sat at 91%. When necessary doses of Dilaudid for incisional pain. NG tube is in place to low intermittent suction with a total of 600 mL of liquid green output last 24 hours. Mid abdominal incision covered with surgical dressing. No bowel sounds auscultated, abdomen is soft, tender to palpation. Labs been reviewed, WBCs up to 13.1, hemoglobin is 12.8, serum sodium is up to 46, serum potassium is 3.3, carbon dioxide is 41, B1 is 33, creatinine is 2.5. Patient has been initiated on D5 0.45 normal saline and 80 mL per hour. Remains nothing by mouth. TPN will be started today, patient did receive a PICC line. Culture results have been reviewed and blood culture shows no growth since admission. On 08/03/2017 patient is seen again. She got transferred to the intensive care last night for concerns of decreased level of consciousness, fever, relative hypotension and tachycardia, and decreased respirations. Patient was suspected to have pain medication related hypotension, was given a dose of Narcan, with improvement of her level of consciousness, respirations, hypoxia, blood pressure. Chest x-ray was obtained in the evening of 2017 and showed pulmonary vascular congestion, pleural effusions, and basilar mild infiltrates. Patient's inspiratory effort was poor during the time of the chest x-ray. Patient did spike a temp of 102.1F prior to the transfer. New set of blood cultures and urine culture was collected and sent yesterday. Patient was given 1 L of 0.9 normal saline IV bolus, her maintenance IV fluid is D5 0.45 normal saline at 80 ML per hour, TPN was started and is currently running at 30 ML per hour, lipids are running at 21 ML per hour. No vasopressor support was necessary as the patient responded well to IV fluids and the Narcan. Microbiology has been reviewed, urine culture collected on 09/2017 is pending. Blood culture collected on 07/25/2017 shows no growth. This morning patient is much more awake, alert, responds to questions appropriately. She is alert, oriented 3. Appropriate, she remembered her surgeon this morning. Her lung sounds are clear to auscultation, no rales, no rhonchi, no wheezing. She denies any pain. She is on 3 L per nasal cannula with O2 sat 95%. She has not had any febrile episodes this morning. Continues on Zosyn. She still has NG tube in place, to low intermittent suction, bowel sounds are now present, hypoactive. Abdomen is soft, nontender. Surgical incision is clean dry and intact and covered with surgical dressing. She denies any pain. On 08/04/2017 patient seen again in the intensive care. She is much more awake , alert, responds appropriately to questions. Denies any acute distress. Lung sounds are positive for scattered rhonchi, especially over posterior lower lobes. Patient needs significant encouragement with incentive spirometer, is able to achieve 250-500 on the today. She is tolerating ice chips, bowel sounds are absent today. NG tube remains in place, to low intermittent suction , the output has increased since patient started taking and ice chips. Abdomen remains soft, nontender, mid abdominal incision is covered with a surgical dressing, clean dry and intact. No bowel movements yet. Not passing gas yet. She still has a safety spec at the bedside. Remains afebrile, hemodynamically stable, on 2 L per nasal cannula with O2 sat 97-100%. Chest x- ray today was reviewed, shows persistent pneumoperitoneum, cardiomegaly with central vascular congestion, and patchy bibasilar atelectasis and/or infiltrate. Lab work shows the VBC of 13.4, hemoglobin 10.6, serum sodium is within normal limits no and is down to 143, serum potassium is 2.8, renal profile is improving further, with B1 of 35, and creatinine of 1.6. Patient is making adequate amount of urine, nonoliguric. Denies any specific complaints. Objective - Vital Signs Vital signs: Vital Signs Temp 97.4 F L 08/04/17 08:00 Pulse 93 08/04/17 11:28 Resp 19 08/04/17 10:00 BP 116/59 08/04/17 10:00 Pulse Ox 97 08/04/17 10:00 Intake & Output 08/03/17 08/04/17 08/04/17 18:59 06:59 18:59 Intake Total 1621 1260 465.0 Output Total 610 540 243 Balance 1011 720 222.0 Weight 66.2 kg 65.5 kg 65.5 kg Intake: IV 1201 1260 465.0 Dextrose 5%-0.45% NaCl 1, 720 880 290 000 ml @ 80 mls/hr IV . [id number] [facility] Rx#:[id number] Fat Emulsion 20% 250 ml 21 In Empty Bag 1 bag @ 21 mls/hr IV [id number]@1800 [facility] Rx#:[id number] Mvi, Adult No.4 with Vit 360 330 150 K 10 ml Trace (Conc-1Ml/ Dose) 1 ml In Amino Acid 5%-D25w+Lytes*E* 1,000 ml @ 30 mls/hr IV .Q24H [facility] Rx#:[id number] Piperacillin-Tazobactam 3 100 50 25.0 .375 gm In Dextrose/Water 1 50ml.bag @ 12.5 mls/hr IVPB Q8HR [facility] Rx#: [id number] Intake, IV Titration 300 Amount ACETAMINOPHEN IV (For NPO 100 ) 1,000 mg In Empty Bag 1 bag @ 400 mls/hr IVPB Q6H [facility] Rx#:[id number] Potassium Chloride 20 meq 200 In Water For Injection 1 100ml.bag @ 50 mls/hr IVPB Q2HR [facility] Rx#: [id number] Other 120 Output: Urine 610 540 243 Other: Voiding Method Indwelling Catheter Indwelling Catheter Indwelling Catheter # Voids 0 - Exam GENERAL EXAM: Alert, in no apparent distress. HEAD: Normocephalic/atraumatic. EYES: Normal reaction of pupils, equal size. Conjunctiva pink, sclera white. NOSE: Clear with pink turbinates. NG tube is in place to low intermittent suction for persistent abdominal distention THROAT: No erythema or exudates. NECK: No masses, no JVD, no thyroid enlargement, no adenopathy. CHEST: No chest wall deformity. Symmetrical expansion. LUNGS: Equal air entry, clear to auscultation, no rales, no rhonchi no wheezes. CVS: Regular rate and rhythm, normal S1 and S2, no gallops, no murmurs, no rubs ABDOMEN: Soft, tender to palpation, minimal abdominal surgical incision is clean dry and intact, covered with surgical dressing.. And some bowel sounds today EXTREMITIES: No clubbing, no edema, no cyanosis, 2+ pulses and upper and lower extremities. MUSCULOSKELETAL: Muscle strength and tone normal. SPINE: No scoliosis or deformity SKIN: No rashes CENTRAL NERVOUS SYSTEM: Somnolent, but easily arousable to verbal stimuli. No focal deficits, tone is normal in all 4 extremities. PSYCHIATRIC: Alert and oriented -1. Appropriate affect. Intact judgment and insight. - Labs CBC & Chem 7: 08/04/17 04:50 08/04/17 11:07 Labs: Abnormal Lab Results - Last 24 Hours (Table) 08/04/17 08/04/17 Range/Units 04:50 04:50 WBC 13.4 H (3.8-10.6) k/uL RBC 3.67 L (3.80-5.40) m/uL Hgb 10.6 L (11.4-16.0) gm/dL MCHC 29.9 L (31.0-37.0) g/dL Neutrophils # 11.8 H (1.3-7.7) k/uL Lymphocytes # 0.5 L (1.0-4.8) k/uL Potassium 2.8 L* (3.5-5.1) mmol/L Carbon Dioxide 39 H (22-30) mmol/L BUN 35 H (7-17) mg/dL Creatinine 1.60 H (0.52-1.04) mg/dL Glucose 176 H (74-99) mg/dL Magnesium 2.4 H (1.6-2.3) mg/dL Microbiology - Last 24 Hours (Table) 08/02/17 21:45 Urine Culture - Final Urine,Catheterized 08/02/17 18:41 Blood Culture - Preliminary Blood No Growth after 24 hours 08/02/17 18:06 Blood Culture - Preliminary Blood No Growth after 24 hours Assessment and Plan Plan: Plan: Smoking: #1. Sepsis secondary to possible right lower lobe pneumonia, or acute small bowel obstruction, and acute urinary tract infection, she presented with febrile illness, tachycardia, A. fib RVR, weakness, leucocytosis, cough without sputum production, hypotension, urinalysis positive for large amount of leukocyte esterase, WBCs, bacteria and mucus. Follow-up x-ray on 08/04/2017 shows cardiomegaly with central vessel congestion, and patchy bibasilar atelectasis. #2. Acute kidney failure secondary to sepsis and hypotension #3. COPD exacerbation #4. New-onset A. fib with RVR, present on admission #5. History of CVA/TIA #6. Hyperlipidemia #7. Hypertension #8. History of colon and breast CA, status post post-double mastectomy #9. 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 Small bowel obstruction, status post exposure laparotomy with release of small bowel obstruction, postop day 3. #12. Acute hypoxic respiratory failure secondary to hypoventilation may have been related to sedation. Improved Plan: Patient is doing well, awake, alert. Continue aggressive pulmonary toileting and incentive spirometer. Remains hemodynamically stable, did not require any vasopressor support. Continue Zosyn. Decrease D5W to KVO, TPN and lipids. NG tube is to low intermittent suction. Patient is tolerating ice chips, but abdomen today is negative for any bowel sounds. We'll probably keep the NG tube today. Continue GI/DVT prophylaxis. Continue on Zosyn, continue breathing treatments. Correct potassium per protocol, pain control. Increase patient's activity, physical therapy, patient is doing well. May transfer out of ICU today to regular surgical floor. I performed a history & physical examination of the patient and discussed their management with my nurse practitioner, Ronel Keenan. I reviewed the nurse practitioner's note and agree with the documented findings and plan of care. Lung sounds are positive for scattered rhonchi. The findings and the impression was discussed with the patient. I attest to the documentation by the nurse practitioner. Time with Patient: Greater than 30 <Celestine Peacock - Last Filed: 08/04/17 16:39> Objective - Vital Signs Vital signs: Vital Signs Temp 97.4 F L 08/04/17 08:00 Pulse 98 08/04/17 15:37 Resp 28 H 08/04/17 15:00 BP 102/58 08/04/17 15:00 Pulse Ox 96 08/04/17 15:21 Intake & Output 08/03/17 08/04/17 08/04/17 18:59 06:59 18:59 Intake Total 1621 1260 1010.0 Output Total 610 540 593 Balance 1011 720 417.0 Weight 66.2 kg 65.5 kg 65.5 kg Intake: IV 1201 1260 910.0 Dextrose 5%-0.45% NaCl 1, 720 880 470 000 ml @ 20 mls/hr IV . Q24H [facility] Rx#:[id number] Fat Emulsion 20% 250 ml 21 In Empty Bag 1 bag @ 21 mls/hr IV MoWeFr@1800 [facility] Rx#:[id number] Mvi, Adult No.4 with Vit 360 330 390 K 10 ml Trace (Conc-1Ml/ Dose) 1 ml In Amino Acid 5%-D25w+Lytes*E* 1,000 ml @ 30 mls/hr IV .Q24H [facility] Rx#:[id number] Piperacillin-Tazobactam 3 100 50 50.0 .375 gm In Dextrose/Water 1 50ml.bag @ 12.5 mls/hr IVPB Q8HR [facility] Rx#: [id number] Intake, IV Titration 300 100 Amount ACETAMINOPHEN IV (For NPO 100 ) 1,000 mg In Empty Bag 1 bag @ 400 mls/hr IVPB Q6H [facility] Rx#:[id number] Magnesium Sulfate-D5w Pmx 100 1 gm In Dextrose/Water 1 100ml.bag @ 100 mls/hr IVPB ONCE ONE Rx#: [id number] Potassium Chloride 20 meq 200 In Water For Injection 1 100ml.bag @ 50 mls/hr IVPB Q2HR [facility] Rx#: [id number] Other 120 Output: Gastric Drainage 100 Urine 610 540 493 Other: Voiding Method Indwelling Catheter Indwelling Catheter Indwelling Catheter # Voids 0 - Labs CBC & Chem 7: 08/04/17 04:50 08/04/17 11:07 Labs: Abnormal Lab Results - Last 24 Hours (Table) 08/04/17 08/04/17 Range/Units 04:50 04:50 WBC 13.4 H (3.8-10.6) k/uL RBC 3.67 L (3.80-5.40) m/uL Hgb 10.6 L (11.4-16.0) gm/dL MCHC 29.9 L (31.0-37.0) g/dL Neutrophils # 11.8 H (1.3-7.7) k/uL Lymphocytes # 0.5 L (1.0-4.8) k/uL Potassium 2.8 L* (3.5-5.1) mmol/L Carbon Dioxide 39 H (22-30) mmol/L BUN 35 H (7-17) mg/dL Creatinine 1.60 H (0.52-1.04) mg/dL Glucose 176 H (74-99) mg/dL Magnesium 2.4 H (1.6-2.3) mg/dL Microbiology - Last 24 Hours (Table) 08/02/17 21:45 Urine Culture - Final Urine,Catheterized 08/02/17 18:41 Blood Culture - Preliminary Blood No Growth after 24 hours 08/02/17 18:06 Blood Culture - Preliminary Blood No Growth after 24 hours Assessment and Plan Plan: This is a joint evaluation that was done along with the nurse practitioner. The patient is looking better and improved compared to yesterday. She is on IV Zosyn. Mila Tube is in place. She remains nothing by mouth. She is on TPN for discharge and support. Renal function is improving. Patient is postop day #3. We'll continue to follow the patient in intensive care unit. I tested above-mentioned information. The septic shock has recovered. The right lower lobe pneumonia has been treated adequately. The patient has no signs of any respiratory distress for now.
[2017-08-04] MEDS ORDERED: MAGNESIUM SULFATE-D5W PMX 1 GM in DEXTROSE/WATER 1 100ML.BAG IVPB ONE (13:00)
--- NOTE | 2017-08-04 13:02 | P.PN ---
Subjective Progress Note Date: 08/04/17 Principal diagnosis: S/P laparotomy with release of small bowel obstruction The patient has been more alert today. Denies abdominal pain or shortness of breath. Has not been out of bed since in the ICU Objective - Vital Signs Vital signs: Vital Signs Temp 97.4 F L 08/04/17 08:00 Pulse 96 08/04/17 12:00 Resp 22 08/04/17 12:00 BP 107/56 08/04/17 12:00 Pulse Ox 98 08/04/17 12:00 Intake & Output 08/03/17 08/04/17 08/04/17 18:59 06:59 18:59 Intake Total 1621 1260 690.0 Output Total 610 540 433 Balance 1011 720 257.0 Weight 66.2 kg 65.5 kg 65.5 kg Intake: IV 1201 1260 690.0 Dextrose 5%-0.45% NaCl 1, 720 880 410 000 ml @ 20 mls/hr IV . Q24H [facility] Rx#:[id number] Fat Emulsion 20% 250 ml 21 In Empty Bag 1 bag @ 21 mls/hr IV MoWeFr@1800 [facility] Rx#:[id number] Mvi, Adult No.4 with Vit 360 330 230 K 10 ml Trace (Conc-1Ml/ Dose) 1 ml In Amino Acid 5%-D25w+Lytes*E* 1,000 ml @ 30 mls/hr IV .Q24H [facility] Rx#:[id number] Piperacillin-Tazobactam 3 100 50 50.0 .375 gm In Dextrose/Water 1 50ml.bag @ 12.5 mls/hr IVPB Q8HR [facility] Rx#: [id number] Intake, IV Titration 300 Amount ACETAMINOPHEN IV (For NPO 100 ) 1,000 mg In Empty Bag 1 bag @ 400 mls/hr IVPB Q6H [facility] Rx#:[id number] Potassium Chloride 20 meq 200 In Water For Injection 1 100ml.bag @ 50 mls/hr IVPB Q2HR [facility] Rx#: [id number] Other 120 Output: Gastric Drainage 100 Urine 610 540 333 Other: Voiding Method Indwelling Catheter Indwelling Catheter Indwelling Catheter # Voids 0 - Constitutional General appearance: Present: cooperative, no acute distress - Respiratory Details: poor inspiration Respiratory: bilateral: rhonchi - Gastrointestinal General gastrointestinal: Present: decreased bowel sounds (rare), distended ( minimally), soft - Labs CBC & Chem 7: 08/04/17 04:50 08/04/17 11:07 Labs: Abnormal Lab Results - Last 24 Hours (Table) 08/04/17 08/04/17 Range/Units 04:50 04:50 WBC 13.4 H (3.8-10.6) k/uL RBC 3.67 L (3.80-5.40) m/uL Hgb 10.6 L (11.4-16.0) gm/dL MCHC 29.9 L (31.0-37.0) g/dL Neutrophils # 11.8 H (1.3-7.7) k/uL Lymphocytes # 0.5 L (1.0-4.8) k/uL Potassium 2.8 L* (3.5-5.1) mmol/L Carbon Dioxide 39 H (22-30) mmol/L BUN 35 H (7-17) mg/dL Creatinine 1.60 H (0.52-1.04) mg/dL Glucose 176 H (74-99) mg/dL Magnesium 2.4 H (1.6-2.3) mg/dL Microbiology - Last 24 Hours (Table) 08/02/17 21:45 Urine Culture - Final Urine,Catheterized 08/02/17 18:41 Blood Culture - Preliminary Blood No Growth after 24 hours 08/02/17 18:06 Blood Culture - Preliminary Blood No Growth after 24 hours - Imaging and Cardiology Chest x-ray: image reviewed (NG present in the stomach) Assessment and Plan (1) Small bowel obstruction Current Visit: Yes Status: Acute Code(s): K56.609 - UNSP INTESTNL OBST, UNSP TO PARTIAL VERSUS COMPLETE OBST SNOMED Code(s): 742411589 (2) New onset atrial fibrillation Current Visit: Yes Status: Acute Code(s): I48.91 - UNSPECIFIED ATRIAL FIBRILLATION SNOMED Code(s): 63475077 Plan: Increase activity. Asked the nurses to get the patient up in a chair. Continue TPN. Monitor for return of bowel function. Encourage pulmonary toilet
--- NOTE | 2017-08-04 16:28 | CONS ---
CONSULTATION REASON FOR CONSULT: Renal failure. DATE OF CONSULTATION: 08/04/2017. HISTORY OF PRESENT ILLNESS: The patient is an 82-year-old lady who was admitted to the hospital on 07/25/2017 with complaints of fever, generalized weakness, tiredness. The patient was also found to be in atrial fibrillation with RVR. She has a bowel obstruction and had surgery. It was done on 08/01/2017. The patient had exploratory laparotomy with release of bowel obstruction. She is currently in the ICU, awake, comfortable. She is oriented to place and person. The patient's creatinine was 2.24 mg/dL on yesterday. It is now down to 1.6. On admission she was 1.9 and did go down to about 1.4 on July 28. Currently, patient is maintained on TPN and IV fluids, D5 0.45 at 50 mL an hour. Her urine output is fairly adequate at about 40-50 mL an hour. I do not see any nephrotoxic medications at this time. PAST MEDICAL HISTORY: Hypertension. History of breast cancer. Colon cancer. Hyperlipidemia. History of CVA and TIAs. COPD. Schizophrenia. PAST SURGERY HISTORY: Past surgical history of bilateral mastectomy. MEDICATIONS: Medications at home prior to admission included Eliquis, calcium, Colace, Tylenol, Lasix, Zyprexa, Prilosec, Zocor, Phenergan, Ultram. ALLERGIES: None. EXAMINATION: Patient is comfortable, awake, complaining of dry mouth. She is not in any acute distress. Blood pressure is 90/50, mostly staying about 116/59, heart rate 92 per minute. The patient is afebrile. Examination of the heart S1, S2. Examination of the lungs bilateral breath sounds are heard. Decreased breath sounds at bases. No wheezing is heard. Occasional crackles are heard bilaterally. ABDOMEN: Soft with an abdominal binder. Examination of the lower extremities shows no significant edema. LAB: Show sodium 143, potassium 2.8, CO2 39, BUN 35, serum creatinine 1.6, hemoglobin 10.6 g/dL. ASSESSMENT: 1. Acute kidney injury, most likely acute tubular necrosis, currently nonoliguric and improving. May continue with IV fluids, but check a chest x-ray and if there is evidence of pulmonary vascular congestion, we can DC the IV fluids. The patient is also on TPN. 2. Hypokalemia associated with GI fluid loss, status post replacement. 3. Metabolic alkalosis also related to loss of gastric contents. TPN could be contributing if the patient has a lot of acetate. 4. Bowel obstruction status post exploratory laparotomy and release of small-bowel obstruction. PLAN: Check chest x-ray and continue IV fluids for now but discontinue fluids. If chest x- ray shows evidence of pulmonary vascular congestion. Repeat labs in a.m. MMODL / IJN: [id number] /
--- NOTE | 2017-08-04 19:03 | P.PN ---
Subjective Progress Note Date: 08/03/17 PROGRESS NOTE being dictated for Dr. Jackson. Interval history: This is a 82-year-old female admitted with ileus, small bowel obstruction, status post exploratory laparotomy with release of small bowel obstruction. Maintained on Zosyn.NPO.Receiving TPN via PICC line. Receiving Dilaudid IV push for pain. Lethargic, telemetry atrial fibrillation with heart rates ranging 100s to 120s. Deep suctioned thick green-brown sputum, not sent for culture. T-max 102.1 ,WBCs up to 13.1, hemoglobin 12.8. Preliminary blood cultures negative. Patient had transferred off the telemetry unit, developed worsening respiratory distress and requiring Ventimask. Less arousable. A team called, patient being transferred to ICU. Currently unable to obtain review of systems Active Medications Acetaminophen (Tylenol Tab) 650 mg PO BID [facility] Last Admin: 08/02/17 07:55 Dose: Not Given Albuterol/Ipratropium (Duoneb 0.5 Mg-3 Mg/3 Ml Soln) 3 ml INHALATION RT-QID [facility] Last Admin: 08/02/17 17:13 Dose: 3 ml Artificial Tears (Artificial Tear Drops) 1 drops BOTH EYES Q6H PRN PRN Reason: Dry Eye(s) Atorvastatin Calcium (Lipitor) 10 mg PO HS@1999 [facility] Last Admin: 08/01/17 20:50 Dose: Not Given Benzocaine/Menthol (Cepacol Lozenge) 1 each MUCOUS MEM Q4HR PRN PRN Reason: Sore Throat Last Admin: 07/27/17 10:23 Dose: 1 each Calcium Carbonate (Oscal 500+D) 1 each PO BID@ [facility] Last Admin: 08/02/17 07:55 Dose: Not Given Docusate Sodium (Colace) 100 mg PO BID@ [facility] Last Admin: 08/02/17 07:55 Dose: Not Given Gabapentin (Neurontin) 300 mg PO BID@ [facility] Last Admin: 08/02/17 07:55 Dose: Not Given Guaifenesin/Dextromethorphan (Robitussin Dm) 5 ml PO QID PRN PRN Reason: Cough Last Admin: 07/30/17 14:20 Dose: 5 ml Haloperidol Lactate (Haldol) 5 mg IM Q6HR PRN PRN Reason: Agitation or Acute Psychosis Last Admin: 07/30/17 02:00 Dose: 5 mg Heparin Sodium (Porcine) (Heparin) 5,000 unit SQ Q8HR [facility] Last Admin: 08/02/17 16:22 Dose: 5,000 unit Hydrocortisone Acetate (Anusol-Hc) 25 mg RECTAL Q12H PRN PRN Reason: Hemorrhoids Hydromorphone HCl (Dilaudid) 0.5 mg IVP Q3HR PRN PRN Reason: Moderate to Severe Pain Last Admin: 08/02/17 16:22 Dose: 0.5 mg Piperacillin/Tazobactam/ (Dextrose 3.375 gm/ IV Solution) 50 mls @ 12.5 mls/hr IVPB Q8HR [facility] Last Admin: 08/02/17 15:23 Dose: 12.5 mls/hr Dextrose/Sodium Chloride (Dextrose 5%-1/2ns Iv Soln) 1,000 mls @ 80 mls/hr IV .[id number] [facility] Last Admin: 08/02/17 15:24 Dose: 80 mls/hr Parenteral Vitamin Supplement 10 ml/ Chromium/Copper/Manganese/Seleni/Zn 1 ml/ Amino Ac/Electrol/Dextrose/Calcium 1,011 mls @ 30 mls/hr IV .Q24H [facility] Fat Emulsion Intravenous 250 (ml/ IV Solution) 250 mls @ 21 mls/hr IV MoWeFr@ 1800 [facility] Parenteral Vitamin Supplement 10 ml/ Chromium/Copper/Manganese/Seleni/Zn 1 ml/ Amino Ac/Electrol/Dextrose/Calcium 1,011 mls @ 40 mls/hr IV .Q24H [facility] Ketorolac Tromethamine (Toradol) 15 mg IVP Q6H [facility] Stop: 08/02/17 21:01 Last Admin: 08/02/17 15:23 Dose: 15 mg Loratadine (Claritin) 10 mg PO DAILY PRN PRN Reason: Allergy Symptoms Lorazepam (Ativan) 0.5 mg IV Q6HR PRN PRN Reason: Anxiety Last Admin: 07/31/17 03:51 Dose: 0.5 mg Lorazepam (Ativan) 1 mg IV Q6HR PRN PRN Reason: Agitation or Acute Anxiety Miscellaneous Information (Pneumonia Protocol Utilized) 1 each PO ONCE PRN PRN Reason: Per Protocol Miscellaneous Information (Potassium Per Protocol) 1 each MISCELLANE DAILY PRN ; Protocol PRN Reason: Per Protocol Multivitamins (Theragran) 1 each PO DAILY@0800 [facility] Last Admin: 08/02/17 07:55 Dose: Not Given Naloxone HCl (Narcan) 0.2 mg IV Q2M PRN PRN Reason: Opioid Reversal Nystatin (Mycostatin Oral Susp) 500,000 unit PO QID [facility] Last Admin: 08/02/17 14:49 Dose: Not Given Olanzapine (Zyprexa Zydis) 20 mg PO HS@1999 [facility] Last Admin: 08/01/17 20:51 Dose: Not Given Ondansetron HCl (Zofran) 4 mg IVP Q6HR PRN PRN Reason: Nausea And Vomiting Last Admin: 07/28/17 03:28 Dose: 4 mg Pantoprazole Sodium (Protonix) 40 mg IV DAILY [facility] Last Admin: 08/02/17 08:05 Dose: 40 mg Polyethylene Glycol (Miralax) 17 gm PO DAILY PRN PRN Reason: Constipation Last Admin: 07/27/17 20:56 Dose: 17 gm Promethazine HCl (Phenergan) 12.5 mg PO Q12H PRN PRN Reason: Nausea Last Admin: 07/26/17 06:23 Dose: 12.5 mg Tramadol HCl (Ultram) 50 mg PO TID PRN PRN Reason: Severe Pain 08/03/17 maintained on IV fluids of D5 and half, (status post IV fluid bolus), TPN with lipids, Zosyn. Recultured with cultures pending. More alert this morning, states pain controlled. Today O2 sats in the mid 90s on 3 L nasal cannula. afebrile. Active Medications Acetaminophen (Tylenol Tab) 650 mg PO BID [facility] Last Admin: 08/04/17 08:33 Dose: 650 mg Albuterol/Ipratropium (Duoneb 0.5 Mg-3 Mg/3 Ml Soln) 3 ml INHALATION RT-QID [facility] Last Admin: 08/04/17 15:21 Dose: 3 ml Artificial Tears (Artificial Tear Drops) 1 drops BOTH EYES Q6H PRN PRN Reason: Dry Eye(s) Atorvastatin Calcium (Lipitor) 10 mg PO HS@1999 [facility] Last Admin: 08/03/17 20:00 Dose: 10 mg Benzocaine/Menthol (Cepacol Lozenge) 1 each MUCOUS MEM Q4HR PRN PRN Reason: Sore Throat Last Admin: 07/27/17 10:23 Dose: 1 each Calcium Carbonate (Oscal 500+D) 1 each PO BID@ [facility] Last Admin: 08/04/17 08:33 Dose: 1 each Docusate Sodium (Colace) 100 mg PO BID@ [facility] Last Admin: 08/04/17 09:06 Dose: Not Given Gabapentin (Neurontin) 300 mg PO BID@ [facility] Last Admin: 08/04/17 08:33 Dose: 300 mg Guaifenesin/Dextromethorphan (Robitussin Dm) 5 ml PO QID PRN PRN Reason: Cough Last Admin: 07/30/17 14:20 Dose: 5 ml Haloperidol Lactate (Haldol) 5 mg IM Q6HR PRN PRN Reason: Agitation or Acute Psychosis Last Admin: 07/30/17 02:00 Dose: 5 mg Heparin Sodium (Porcine) (Heparin) 5,000 unit SQ Q8HR [facility] Last Admin: 08/04/17 17:14 Dose: 5,000 unit Hydrocortisone Acetate (Anusol-Hc) 25 mg RECTAL Q12H PRN PRN Reason: Hemorrhoids Hydromorphone HCl (Dilaudid) 0.5 mg IVP Q3HR PRN PRN Reason: Moderate to Severe Pain Piperacillin/Tazobactam/ (Dextrose 3.375 gm/ IV Solution) 50 mls @ 12.5 mls/hr IVPB Q8HR [facility] Last Admin: 08/04/17 17:14 Dose: 12.5 mls/hr Dextrose/Sodium Chloride (Dextrose 5%-1/2ns Iv Soln) 1,000 mls @ 20 mls/hr IV .Q24H [facility] Last Admin: 08/04/17 17:18 Dose: 20 mls/hr Fat Emulsion Intravenous 250 (ml/ IV Solution) 250 mls @ 21 mls/hr IV MoWeFr@ 1800 [facility] Last Admin: 08/02/17 22:34 Dose: 21 mls/hr Parenteral Vitamin Supplement 10 ml/ Chromium/Copper/Manganese/Seleni/Zn 1 ml/ Amino Ac/Electrol/Dextrose/Calcium 1,011 mls @ 40 mls/hr IV .Q24H [facility] Last Admin: 08/04/17 08:14 Dose: 40 mls/hr Loratadine (Claritin) 10 mg PO DAILY PRN PRN Reason: Allergy Symptoms Lorazepam (Ativan) 0.5 mg IV Q6HR PRN PRN Reason: Anxiety Last Admin: 07/31/17 03:51 Dose: 0.5 mg Lorazepam (Ativan) 1 mg IV Q6HR PRN PRN Reason: Agitation or Acute Anxiety Miscellaneous Information (Pneumonia Protocol Utilized) 1 each PO ONCE PRN PRN Reason: Per Protocol Miscellaneous Information (Potassium Per Protocol) 1 each MISCELLANE DAILY PRN ; Protocol PRN Reason: Per Protocol Naloxone HCl (Narcan) 0.2 mg IV Q2M PRN PRN Reason: Opioid Reversal Last Admin: 08/02/17 18:18 Dose: 0.2 mg Nystatin (Mycostatin Oral Susp) 500,000 unit PO QID [facility] Last Admin: 08/04/17 12:27 Dose: 500,000 unit Olanzapine (Zyprexa Zydis) 20 mg PO HS@2000 [facility] Last Admin: 08/03/17 20:00 Dose: 20 mg Ondansetron HCl (Zofran) 4 mg IVP Q6HR PRN PRN Reason: Nausea And Vomiting Last Admin: 07/28/17 03:28 Dose: 4 mg Pantoprazole Sodium (Protonix) 40 mg IV DAILY [facility] Last Admin: 08/04/17 08:34 Dose: 40 mg Polyethylene Glycol (Miralax) 17 gm PO DAILY PRN PRN Reason: Constipation Last Admin: 07/27/17 20:56 Dose: 17 gm Promethazine HCl (Phenergan) 12.5 mg PO Q12H PRN PRN Reason: Nausea Last Admin: 07/26/17 06:23 Dose: 12.5 mg Tramadol HCl (Ultram) 50 mg PO TID PRN PRN Reason: Severe Pain Objective - Vital Signs Vital signs: Vital Signs Temp 97.3 F L 08/03/17 08:00 Pulse 93 08/03/17 09:00 Resp 16 08/03/17 09:00 BP 101/52 08/03/17 09:00 Pulse Ox 97 08/03/17 09:00 Intake & Output 08/02/17 08/03/17 08/03/17 18:59 06:59 18:59 Intake Total 640 2178 531 Output Total 250 290 170 Balance 390 0138 361 Weight 66.2 kg 66.2 kg Intake: IV 2178 211 Dextrose 5%-0.45% NaCl 1, 720 80 000 ml @ 80 mls/hr IV . [id number] [facility] Rx#:[id number] Fat Emulsion 20% 250 ml 168 21 In Empty Bag 1 bag @ 21 mls/hr IV MoWeFr@1800 [facility] Rx#:[id number] Lactated Ringers 1,000 ml 1000 @ 999 mls/hr IV .Q1H1M [facility] Rx#:[id number] Mvi, Adult No.4 with Vit 240 60 K 10 ml Trace (Conc-1Ml/ Dose) 1 ml In Amino Acid 5%-D25w+Lytes*E* 1,000 ml @ 30 mls/hr IV .Q24H [facility] Rx#:[id number] Piperacillin-Tazobactam 3 50 50 .375 gm In Dextrose/Water 1 50ml.bag @ 12.5 mls/hr IVPB Q8HR [facility] Rx#: [id number] Intake, IV Titration 640 200 Amount ACETAMINOPHEN IV (For NPO 100 ) 1,000 mg In Empty Bag 1 bag @ 400 mls/hr IVPB Q6H [facility] Rx#:[id number] Dextrose 5%-0.45% NaCl 1, 640 000 ml @ 80 mls/hr IV . [id number] [facility] Rx#:[id number] Potassium Chloride 20 meq 100 In Water For Injection 1 100ml.bag @ 50 mls/hr IVPB Q2HR [facility] Rx#: [id number] Oral 0 Other 120 Output: Gastric Drainage 50 Urine 200 290 170 Other: Voiding Method Indwelling Catheter Indwelling Catheter Indwelling Catheter # Voids 0 0 # Bowel Movements 0 - Exam GENERAL: Sitting up in bed, alert and oriented x2, no acute distress HEENT: Pupils are round and equally reacting to light. EOMI. No scleral icterus. No conjunctival pallor. Normocephalic, atraumatic. No pharyngeal erythema. No thyromegaly. NG tube present. CARDIOVASCULAR: S1 and S2 present, No murmurs, rubs, or gallops. PULMONARY: Respiratory effort increased ,Scattered rhonchi throughout, no wheezes, no crackles, no wheezing ABDOMEN: Soft, status post surgery dressing clean dry and intact, hypoactive bowel sounds auscultated MUSCULOSKELETAL: No joint swelling or deformity. EXTREMITIES: No cyanosis, clubbing, or pedal edema. NEUROLOGICAL: Gross neurological examination did not reveal any focal deficits. SKIN: No rashes. - Labs CBC & Chem 7: 08/04/17 04:50 08/04/17 11:07 Labs: Abnormal Lab Results - Last 24 Hours (Table) 08/02/17 08/02/17 08/02/17 Range/Units 18:29 20:59 21:28 WBC 14.4 H (3.8-10.6) k/uL RBC (3.80-5.40) m/uL Hgb (11.4-16.0) gm/dL MCHC 30.4 L (31.0-37.0) g/dL Neutrophils # (1.3-7.7) k/uL Lymphocytes # (1.0-4.8) k/uL Sodium (137-145) mmol/L Potassium (3.5-5.1) mmol/L Carbon Dioxide (22-30) mmol/L BUN (7-17) mg/dL Creatinine (0.52-1.04) mg/dL Glucose (74-99) mg/dL POC Glucose (mg/dL) 116 H 118 H (75-99) mg/dL Magnesium (1.6-2.3) mg/dL 08/03/17 08/03/17 Range/Units 05:35 05:35 WBC 13.5 H (3.8-10.6) k/uL RBC 3.70 L (3.80-5.40) m/uL Hgb 11.0 L (11.4-16.0) gm/dL MCHC 30.8 L (31.0-37.0) g/dL Neutrophils # 11.9 H (1.3-7.7) k/uL Lymphocytes # 0.5 L (1.0-4.8) k/uL Sodium 147 H (137-145) mmol/L Potassium 3.1 L (3.5-5.1) mmol/L Carbon Dioxide 44 H* (22-30) mmol/L BUN 51 H (7-17) mg/dL Creatinine 2.24 H (0.52-1.04) mg/dL Glucose 196 H (74-99) mg/dL POC Glucose (mg/dL) (75-99) mg/dL Magnesium 2.5 H (1.6-2.3) mg/dL Microbiology - Last 24 Hours (Table) 08/02/17 21:45 Urine Culture - Preliminary Urine,Catheterized Assessment and Plan Assessment: -Sepsis secondary to possible right lower lobe pneumonia, acute small bowel obstruction, acute UTI -Atrial fibrillation with RVR, new onset-present on admission -COPD with acute exacerbation patient will benefit from systemic steroids, a be a competent of pulmonary edema which is contributing to acute hypoxemia - gastroesophageal reflux disease -Hyperlipidemia -Schizophrenia -History of CVA in the past -Possible ileus NG tube placement -Status post exploratory laparotomy with release of small bowel obstruction -Acute hypoxic respiratory failure, secondary to #1, possibly medication induced -responded to Narcan, improving PLAN: Continue on current medication regime , TPN, lipids, antibiotics , monitoring and symptomatic treatment. A fluid hydration. antibiotics as per Infectious disease. Follow cultures closely. GI and DVT prophylaxis in place. Pain management as per surgery Prognosis guarded given multiple complex medical issues. Further recommendations to follow. The impression and plan of care has been dictated as directed. : I performed a history and examination of this patient, discussed the same with the dictator. I agree with the dictator's note ,documented as a scribe. Any additional findings or plans will be noted.
--- NOTE | 2017-08-04 19:11 | P.PN ---
Subjective Progress Note Date: 08/04/17 PROGRESS NOTE being dictated for Dr. Jackson. Interval history: This is a 82-year-old female admitted with ileus, small bowel obstruction, status post exploratory laparotomy with release of small bowel obstruction. Maintained on Zosyn.NPO.Receiving TPN via PICC line. Receiving Dilaudid IV push for pain. Lethargic, telemetry atrial fibrillation with heart rates ranging 100s to 120s. Deep suctioned thick green-brown sputum, not sent for culture. T-max 102.1 ,WBCs up to 13.1, hemoglobin 12.8. Preliminary blood cultures negative. Patient had transferred off the telemetry unit, developed worsening respiratory distress and requiring Ventimask. Less arousable. A team called, patient being transferred to ICU. Currently unable to obtain review of systems Active Medications Acetaminophen (Tylenol Tab) 650 mg PO BID [facility] Last Admin: 08/02/17 07:55 Dose: Not Given Albuterol/Ipratropium (Duoneb 0.5 Mg-3 Mg/3 Ml Soln) 3 ml INHALATION RT-QID [facility] Last Admin: 08/02/17 17:13 Dose: 3 ml Artificial Tears (Artificial Tear Drops) 1 drops BOTH EYES Q6H PRN PRN Reason: Dry Eye(s) Atorvastatin Calcium (Lipitor) 10 mg PO HS@1999 [facility] Last Admin: 08/01/17 20:50 Dose: Not Given Benzocaine/Menthol (Cepacol Lozenge) 1 each MUCOUS MEM Q4HR PRN PRN Reason: Sore Throat Last Admin: 07/27/17 10:23 Dose: 1 each Calcium Carbonate (Oscal 500+D) 1 each PO BID@ [facility] Last Admin: 08/02/17 07:55 Dose: Not Given Docusate Sodium (Colace) 100 mg PO BID@ [facility] Last Admin: 08/02/17 07:55 Dose: Not Given Gabapentin (Neurontin) 300 mg PO BID@ [facility] Last Admin: 08/02/17 07:55 Dose: Not Given Guaifenesin/Dextromethorphan (Robitussin Dm) 5 ml PO QID PRN PRN Reason: Cough Last Admin: 07/30/17 14:20 Dose: 5 ml Haloperidol Lactate (Haldol) 5 mg IM Q6HR PRN PRN Reason: Agitation or Acute Psychosis Last Admin: 07/30/17 02:00 Dose: 5 mg Heparin Sodium (Porcine) (Heparin) 5,000 unit SQ Q8HR [facility] Last Admin: 08/02/17 16:22 Dose: 5,000 unit Hydrocortisone Acetate (Anusol-Hc) 25 mg RECTAL Q12H PRN PRN Reason: Hemorrhoids Hydromorphone HCl (Dilaudid) 0.5 mg IVP Q3HR PRN PRN Reason: Moderate to Severe Pain Last Admin: 08/02/17 16:22 Dose: 0.5 mg Piperacillin/Tazobactam/ (Dextrose 3.375 gm/ IV Solution) 50 mls @ 12.5 mls/hr IVPB Q8HR [facility] Last Admin: 08/02/17 15:23 Dose: 12.5 mls/hr Dextrose/Sodium Chloride (Dextrose 5%-1/2ns Iv Soln) 1,000 mls @ 80 mls/hr IV .[id number] [facility] Last Admin: 08/02/17 15:24 Dose: 80 mls/hr Parenteral Vitamin Supplement 10 ml/ Chromium/Copper/Manganese/Seleni/Zn 1 ml/ Amino Ac/Electrol/Dextrose/Calcium 1,011 mls @ 30 mls/hr IV .Q24H [facility] Fat Emulsion Intravenous 250 (ml/ IV Solution) 250 mls @ 21 mls/hr IV MoWeFr@ 1800 [facility] Parenteral Vitamin Supplement 10 ml/ Chromium/Copper/Manganese/Seleni/Zn 1 ml/ Amino Ac/Electrol/Dextrose/Calcium 1,011 mls @ 40 mls/hr IV .Q24H [facility] Ketorolac Tromethamine (Toradol) 15 mg IVP Q6H [facility] Stop: 08/02/17 21:01 Last Admin: 08/02/17 15:23 Dose: 15 mg Loratadine (Claritin) 10 mg PO DAILY PRN PRN Reason: Allergy Symptoms Lorazepam (Ativan) 0.5 mg IV Q6HR PRN PRN Reason: Anxiety Last Admin: 07/31/17 03:51 Dose: 0.5 mg Lorazepam (Ativan) 1 mg IV Q6HR PRN PRN Reason: Agitation or Acute Anxiety Miscellaneous Information (Pneumonia Protocol Utilized) 1 each PO ONCE PRN PRN Reason: Per Protocol Miscellaneous Information (Potassium Per Protocol) 1 each MISCELLANE DAILY PRN ; Protocol PRN Reason: Per Protocol Multivitamins (Theragran) 1 each PO DAILY@0800 [facility] Last Admin: 08/02/17 07:55 Dose: Not Given Naloxone HCl (Narcan) 0.2 mg IV Q2M PRN PRN Reason: Opioid Reversal Nystatin (Mycostatin Oral Susp) 500,000 unit PO QID [facility] Last Admin: 08/02/17 14:49 Dose: Not Given Olanzapine (Zyprexa Zydis) 20 mg PO HS@1999 [facility] Last Admin: 08/01/17 20:51 Dose: Not Given Ondansetron HCl (Zofran) 4 mg IVP Q6HR PRN PRN Reason: Nausea And Vomiting Last Admin: 07/28/17 03:28 Dose: 4 mg Pantoprazole Sodium (Protonix) 40 mg IV DAILY [facility] Last Admin: 08/02/17 08:05 Dose: 40 mg Polyethylene Glycol (Miralax) 17 gm PO DAILY PRN PRN Reason: Constipation Last Admin: 07/27/17 20:56 Dose: 17 gm Promethazine HCl (Phenergan) 12.5 mg PO Q12H PRN PRN Reason: Nausea Last Admin: 07/26/17 06:23 Dose: 12.5 mg Tramadol HCl (Ultram) 50 mg PO TID PRN PRN Reason: Severe Pain 08/03/17 maintained on IV fluids of D5 and half, (status post IV fluid bolus), TPN with lipids, Zosyn. Recultured with cultures pending. More alert this morning, states pain controlled. Today O2 sats in the mid 90s on 3 L nasal cannula. afebrile. Active Medications Acetaminophen (Tylenol Tab) 650 mg PO BID [facility] Last Admin: 08/04/17 08:33 Dose: 650 mg Albuterol/Ipratropium (Duoneb 0.5 Mg-3 Mg/3 Ml Soln) 3 ml INHALATION RT-QID [facility] Last Admin: 08/04/17 15:21 Dose: 3 ml Artificial Tears (Artificial Tear Drops) 1 drops BOTH EYES Q6H PRN PRN Reason: Dry Eye(s) Atorvastatin Calcium (Lipitor) 10 mg PO HS@1999 [facility] Last Admin: 08/03/17 20:00 Dose: 10 mg Benzocaine/Menthol (Cepacol Lozenge) 1 each MUCOUS MEM Q4HR PRN PRN Reason: Sore Throat Last Admin: 07/27/17 10:23 Dose: 1 each Calcium Carbonate (Oscal 500+D) 1 each PO BID@ [facility] Last Admin: 08/04/17 08:33 Dose: 1 each Docusate Sodium (Colace) 100 mg PO BID@ [facility] Last Admin: 08/04/17 09:06 Dose: Not Given Gabapentin (Neurontin) 300 mg PO BID@ [facility] Last Admin: 08/04/17 08:33 Dose: 300 mg Guaifenesin/Dextromethorphan (Robitussin Dm) 5 ml PO QID PRN PRN Reason: Cough Last Admin: 07/30/17 14:20 Dose: 5 ml Haloperidol Lactate (Haldol) 5 mg IM Q6HR PRN PRN Reason: Agitation or Acute Psychosis Last Admin: 07/30/17 02:00 Dose: 5 mg Heparin Sodium (Porcine) (Heparin) 5,000 unit SQ Q8HR [facility] Last Admin: 08/04/17 17:14 Dose: 5,000 unit Hydrocortisone Acetate (Anusol-Hc) 25 mg RECTAL Q12H PRN PRN Reason: Hemorrhoids Hydromorphone HCl (Dilaudid) 0.5 mg IVP Q3HR PRN PRN Reason: Moderate to Severe Pain Piperacillin/Tazobactam/ (Dextrose 3.375 gm/ IV Solution) 50 mls @ 12.5 mls/hr IVPB Q8HR [facility] Last Admin: 08/04/17 17:14 Dose: 12.5 mls/hr Dextrose/Sodium Chloride (Dextrose 5%-1/2ns Iv Soln) 1,000 mls @ 20 mls/hr IV .Q24H [facility] Last Admin: 08/04/17 17:18 Dose: 20 mls/hr Fat Emulsion Intravenous 250 (ml/ IV Solution) 250 mls @ 21 mls/hr IV MoWeFr@ 1800 [facility] Last Admin: 08/02/17 22:34 Dose: 21 mls/hr Parenteral Vitamin Supplement 10 ml/ Chromium/Copper/Manganese/Seleni/Zn 1 ml/ Amino Ac/Electrol/Dextrose/Calcium 1,011 mls @ 40 mls/hr IV .Q24H [facility] Last Admin: 08/04/17 08:14 Dose: 40 mls/hr Loratadine (Claritin) 10 mg PO DAILY PRN PRN Reason: Allergy Symptoms Lorazepam (Ativan) 0.5 mg IV Q6HR PRN PRN Reason: Anxiety Last Admin: 07/31/17 03:51 Dose: 0.5 mg Lorazepam (Ativan) 1 mg IV Q6HR PRN PRN Reason: Agitation or Acute Anxiety Miscellaneous Information (Pneumonia Protocol Utilized) 1 each PO ONCE PRN PRN Reason: Per Protocol Miscellaneous Information (Potassium Per Protocol) 1 each MISCELLANE DAILY PRN ; Protocol PRN Reason: Per Protocol Naloxone HCl (Narcan) 0.2 mg IV Q2M PRN PRN Reason: Opioid Reversal Last Admin: 08/02/17 18:18 Dose: 0.2 mg Nystatin (Mycostatin Oral Susp) 500,000 unit PO QID [facility] Last Admin: 08/04/17 12:27 Dose: 500,000 unit Olanzapine (Zyprexa Zydis) 20 mg PO HS@2000 [facility] Last Admin: 08/03/17 20:00 Dose: 20 mg Ondansetron HCl (Zofran) 4 mg IVP Q6HR PRN PRN Reason: Nausea And Vomiting Last Admin: 07/28/17 03:28 Dose: 4 mg Pantoprazole Sodium (Protonix) 40 mg IV DAILY [facility] Last Admin: 08/04/17 08:34 Dose: 40 mg Polyethylene Glycol (Miralax) 17 gm PO DAILY PRN PRN Reason: Constipation Last Admin: 07/27/17 20:56 Dose: 17 gm Promethazine HCl (Phenergan) 12.5 mg PO Q12H PRN PRN Reason: Nausea Last Admin: 07/26/17 06:23 Dose: 12.5 mg Tramadol HCl (Ultram) 50 mg PO TID PRN PRN Reason: Severe Pain 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 No flatus, no bowel movement. Breathing improving, oxygen titrated down to 2 L, maintaining O2 sats of high 90s to 100%, IS up to 500. Chest x-ray reporting persistent pneumoperitoneum, cardiomegaly, central vascular congestion and patchy bibasilar atelectasis/infiltrate. Renal function improving. Potassium 2.8, currently being replaced. States pain controlled. Afebrile, urine culture negative, preliminary blood cultures negative Review of systems: CONSTITUTIONAL: No fever, no fatigue. HEENT: No recent visual problems or hearing problems. Denied any sore throat. CARDIOVASCULAR: No chest pain, no palpitations, no syncope. PULMONARY: No shortness of breath, no cough, no hemoptysis. GASTROINTESTINAL: No diarrhea, no nausea, no vomiting, hypoactive bowel sounds. Status post surgery, pain controlled NEUROLOGICAL: No headaches, no weakness, no numbness. HEMATOLOGICAL: Denies any bleeding or petechiae. GENITOURINARY: Denies any burning micturition, frequency, or urgency. MUSCULOSKELETAL/RHEUMATOLOGICAL: Denies any joint pain, swelling, or any muscle pain. ENDOCRINE: Denies any polyuria or polydipsia. PSYCHIATRIC: No anxiety, no depression The rest of the 14 point review of systems is negative Active Medications Acetaminophen (Tylenol Tab) 650 mg PO BID [facility] Last Admin: 08/04/17 08:33 Dose: 650 mg Albuterol/Ipratropium (Duoneb 0.5 Mg-3 Mg/3 Ml Soln) 3 ml INHALATION RT-QID [facility] Last Admin: 08/04/17 15:21 Dose: 3 ml Artificial Tears (Artificial Tear Drops) 1 drops BOTH EYES Q6H PRN PRN Reason: Dry Eye(s) Atorvastatin Calcium (Lipitor) 10 mg PO HS@1999 [facility] Last Admin: 08/03/17 20:00 Dose: 10 mg Benzocaine/Menthol (Cepacol Lozenge) 1 each MUCOUS MEM Q4HR PRN PRN Reason: Sore Throat Last Admin: 07/27/17 10:23 Dose: 1 each Calcium Carbonate (Oscal 500+D) 1 each PO BID@ [facility] Last Admin: 08/04/17 08:33 Dose: 1 each Docusate Sodium (Colace) 100 mg PO BID@ [facility] Last Admin: 08/04/17 09:06 Dose: Not Given Gabapentin (Neurontin) 300 mg PO BID@ [facility] Last Admin: 08/04/17 08:33 Dose: 300 mg Guaifenesin/Dextromethorphan (Robitussin Dm) 5 ml PO QID PRN PRN Reason: Cough Last Admin: 07/30/17 14:20 Dose: 5 ml Haloperidol Lactate (Haldol) 5 mg IM Q6HR PRN PRN Reason: Agitation or Acute Psychosis Last Admin: 07/30/17 02:00 Dose: 5 mg Heparin Sodium (Porcine) (Heparin) 5,000 unit SQ Q8HR [facility] Last Admin: 08/04/17 17:14 Dose: 5,000 unit Hydrocortisone Acetate (Anusol-Hc) 25 mg RECTAL Q12H PRN PRN Reason: Hemorrhoids Hydromorphone HCl (Dilaudid) 0.5 mg IVP Q3HR PRN PRN Reason: Moderate to Severe Pain Piperacillin/Tazobactam/ (Dextrose 3.375 gm/ IV Solution) 50 mls @ 12.5 mls/hr IVPB Q8HR [facility] Last Admin: 08/04/17 17:14 Dose: 12.5 mls/hr Dextrose/Sodium Chloride (Dextrose 5%-1/2ns Iv Soln) 1,000 mls @ 20 mls/hr IV .Q24H [facility] Last Admin: 08/04/17 17:18 Dose: 20 mls/hr Fat Emulsion Intravenous 250 (ml/ IV Solution) 250 mls @ 21 mls/hr IV MoWeFr@ 1800 [facility] Last Admin: 08/02/17 22:34 Dose: 21 mls/hr Parenteral Vitamin Supplement 10 ml/ Chromium/Copper/Manganese/Seleni/Zn 1 ml/ Amino Ac/Electrol/Dextrose/Calcium 1,011 mls @ 40 mls/hr IV .Q24H [facility] Last Admin: 08/04/17 08:14 Dose: 40 mls/hr Loratadine (Claritin) 10 mg PO DAILY PRN PRN Reason: Allergy Symptoms Lorazepam (Ativan) 0.5 mg IV Q6HR PRN PRN Reason: Anxiety Last Admin: 07/31/17 03:51 Dose: 0.5 mg Lorazepam (Ativan) 1 mg IV Q6HR PRN PRN Reason: Agitation or Acute Anxiety Miscellaneous Information (Pneumonia Protocol Utilized) 1 each PO ONCE PRN PRN Reason: Per Protocol Miscellaneous Information (Potassium Per Protocol) 1 each MISCELLANE DAILY PRN ; Protocol PRN Reason: Per Protocol Naloxone HCl (Narcan) 0.2 mg IV Q2M PRN PRN Reason: Opioid Reversal Last Admin: 08/02/17 18:18 Dose: 0.2 mg Nystatin (Mycostatin Oral Susp) 500,000 unit PO QID [facility] Last Admin: 08/04/17 12:27 Dose: 500,000 unit Olanzapine (Zyprexa Zydis) 20 mg PO HS@2000 [facility] Last Admin: 08/03/17 20:00 Dose: 20 mg Ondansetron HCl (Zofran) 4 mg IVP Q6HR PRN PRN Reason: Nausea And Vomiting Last Admin: 07/28/17 03:28 Dose: 4 mg Pantoprazole Sodium (Protonix) 40 mg IV DAILY [facility] Last Admin: 08/04/17 08:34 Dose: 40 mg Polyethylene Glycol (Miralax) 17 gm PO DAILY PRN PRN Reason: Constipation Last Admin: 07/27/17 20:56 Dose: 17 gm Promethazine HCl (Phenergan) 12.5 mg PO Q12H PRN PRN Reason: Nausea Last Admin: 07/26/17 06:23 Dose: 12.5 mg Tramadol HCl (Ultram) 50 mg PO TID PRN PRN Reason: Severe Pain Objective - Vital Signs Vital signs: Vital Signs Temp 97.4 F L 08/04/17 08:00 Pulse 98 08/04/17 15:37 Resp 28 H 08/04/17 18:25 BP 102/58 08/04/17 15:00 Pulse Ox 96 08/04/17 15:21 Intake & Output 08/04/17 08/04/17 08/05/17 06:59 18:59 06:59 Intake Total 1260 1010.0 Output Total 540 593 Balance 720 417.0 Weight 65.5 kg 65.5 kg Intake: IV 1260 910.0 Dextrose 5%-0.45% NaCl 1, 880 470 000 ml @ 20 mls/hr IV . Q24H [facility] Rx#:[id number] Mvi, Adult No.4 with Vit 330 390 K 10 ml Trace (Conc-1Ml/ Dose) 1 ml In Amino Acid 5%-D25w+Lytes*E* 1,000 ml @ 30 mls/hr IV .Q24H [facility] Rx#:[id number] Piperacillin-Tazobactam 3 50 50.0 .375 gm In Dextrose/Water 1 50ml.bag @ 12.5 mls/hr IVPB Q8HR [facility] Rx#: [id number] Intake, IV Titration 100 Amount Magnesium Sulfate-D5w Pmx 100 1 gm In Dextrose/Water 1 100ml.bag @ 100 mls/hr IVPB ONCE ONE Rx#: [id number] Output: Gastric Drainage 100 Urine 540 493 Other: Voiding Method Indwelling Catheter Indwelling Catheter - Exam GENERAL: Sitting up in bed, alert and oriented x2, no acute distress HEENT: Pupils are round and equally reacting to light. EOMI. No scleral icterus. No conjunctival pallor. Normocephalic, atraumatic.NG tube present. CARDIOVASCULAR: S1 and S2 present, No murmurs, rubs, or gallops. PULMONARY: Respiratory effort increased ,Scattered rhonchi throughout, no wheezes, no crackles, no wheezing ABDOMEN: Soft, status post surgery dressing clean dry and intact, hypoactive bowel sounds auscultated MUSCULOSKELETAL: No joint swelling or deformity. EXTREMITIES: No cyanosis, clubbing, or pedal edema. NEUROLOGICAL: Gross neurological examination did not reveal any focal deficits. SKIN: No rashes. Microbiology 08/02/17 21:45 Urine,Catheterized Urine Culture - Final 08/02/17 18:41 Blood Blood Culture - Preliminary No Growth after 24 hours 08/02/17 18:06 Blood Blood Culture - Preliminary No Growth after 24 hours 07/25/17 13:24 Blood Blood Culture - Final No Growth after 144 hours - Labs CBC & Chem 7: 08/04/17 04:50 08/04/17 11:07 Labs: Abnormal Lab Results - Last 24 Hours (Table) 08/04/17 08/04/17 Range/Units 04:50 04:50 WBC 13.4 H (3.8-10.6) k/uL RBC 3.67 L (3.80-5.40) m/uL Hgb 10.6 L (11.4-16.0) gm/dL MCHC 29.9 L (31.0-37.0) g/dL Neutrophils # 11.8 H (1.3-7.7) k/uL Lymphocytes # 0.5 L (1.0-4.8) k/uL Potassium 2.8 L* (3.5-5.1) mmol/L Carbon Dioxide 39 H (22-30) mmol/L BUN 35 H (7-17) mg/dL Creatinine 1.60 H (0.52-1.04) mg/dL Glucose 176 H (74-99) mg/dL Magnesium 2.4 H (1.6-2.3) mg/dL Microbiology - Last 24 Hours (Table) 08/02/17 21:45 Urine Culture - Final Urine,Catheterized 08/02/17 18:41 Blood Culture - Preliminary Blood No Growth after 24 hours 08/02/17 18:06 Blood Culture - Preliminary Blood No Growth after 24 hours Assessment and Plan Assessment: -Sepsis secondary to possible right lower lobe pneumonia, acute small bowel obstruction, acute UTI -Atrial fibrillation with RVR, new onset-present on admission -COPD with acute exacerbation patient will benefit from systemic steroids, a be a competent of pulmonary edema which is contributing to acute hypoxemia - gastroesophageal reflux disease -Hyperlipidemia -Schizophrenia -History of CVA in the past -Possible ileus NG tube placement -Status post exploratory laparotomy with release of small bowel obstruction -Acute hypoxic respiratory failure, secondary to #1, possibly medication induced -responded to Narcan, improving PLAN: Continue on current medication regime , TPN, lipids, antibiotics , monitoring and symptomatic treatment. IV fluid hydration. antibiotics as per Infectious disease. Aggressive pulmonary toileting with incentive spirometer reinforced. PT/OT. Prognosis guarded given multiple complex medical issues. Further recommendations to follow. The impression and plan of care has been dictated as directed. : I performed a history and examination of this patient, discussed the same with the dictator. I agree with the dictator's note ,documented as a scribe. Any additional findings or plans will be noted.
[2017-08-04] MEDS: FAT EMULSION 20% 250 ML in EMPTY BAG 1 BAG IV SCH (20:37)
[2017-08-04] MEDS: ATORVASTATIN 10 MG TAB PO SCH (20:51)
[2017-08-04] MEDS: OLANZapine ODT 10 MG TAB PO SCH (20:52)
[2017-08-05] MEDS: HEPARIN SODIUM,PORCINE 5,000 UNIT/ML 1 ML VIAL SQ SCH ×4 (00:01→23:29)
[2017-08-05] MEDS: PIPERACILLIN-TAZOBACTAM 3.375 GM in DEXTROSE/WATER 1 50ML.BAG IVPB SCH ×4 (00:04→23:30)
[2017-08-05] MEDS: IPRATROPIUM-ALBUTEROL 3 ML NEB INHALATION SCH ×4 (07:27→20:20)
--- NOTE | 2017-08-05 07:47 | PN ---
PROGRESS NOTE DATE OF SERVICE: 08/04/2017 REASON FOR FOLLOWUP: Fever, aspiration pneumonia, UTI. INTERVAL HISTORY: The patient is afebrile. She was noted to be more awake, alert, this afternoon. She is hemodynamically stable. Not on any pressor support. The patient denies having any chest pain. Minimal cough and abdominal pain. PHYSICAL EXAMINATION: Blood pressure is 120/83 with a pulse of 95, temperature of 98.8. She is 97% on 2 L nasal cannula. General description is an elderly female up in the bed, in no distress. Respiratory system unlabored breathing, decreased breath sounds in the bases. HEART: S1, S2. Regular rate and rhythm. Abdomen soft, no tenderness. LABS: Hemoglobin 10.6, white count 13.4, BUN of 35, creatinine 1.6. Blood culture repeat is so far pending as well as repeat urine culture negative as well. DIAGNOSTIC IMPRESSION AND PLAN: Patient with an episode of fever post laparotomy for a small bowel obstruction and a question of aspiration pneumonia. Currently covered with Zosyn that will be continued. We will try to obtain sputum to narrow down antibiotics. Continue to watch her clinical course and culture and continue supportive care. MMODL / IJN: [id number] / MTDD
[2017-08-05 08:09] LABS: Basophils # (A) 0.1 k/uL (0-0.2); Basophils % (A) 0 %; Eosinophils # (A) 0.7 k/uL (0-0.7); Eosinophils % (A) 6 %; HGB 10.8 gm/dL (11.4-16.0); Hypochromasia Moderate; Lymphocytes # (A) 0.4 k/uL (1.0-4.8); Lymphocytes % (A) 4 %; MCHC 29.9 g/dL (31.0-37.0); Mean Platelet Volume 7.6; Monocytes # (A) 0.3 k/uL (0-1.0); Monocytes % (A) 3 %; Neutrophils # (A) 9.3 k/uL (1.3-7.7); Neutrophils % (A) 86 %; Platelet Count 245 k/uL (150-450); RBC 3.71 m/uL (3.80-5.40); RDW 14.1 % (11.5-15.5); WBC 10.9 k/uL (3.8-10.6)
[2017-08-05 08:31] LABS: Calcium 8.7 mg/dL (8.4-10.2); Magnesium 2.4 mg/dL (1.6-2.3); Phosphorus 2.2 mg/dL (2.5-4.5); Potassium 3.5 mmol/L (3.5-5.1)
--- NOTE | 2017-08-05 08:49 | P.PN ---
Subjective Progress Note Date: 08/05/17 Patient seen and examined at bedside. Transferred to floor yesterday. She is comfortable. Denies abdominal pain. She denies any flatus or bowel function. NG tube is in place. Objective - Vital Signs Vital signs: Vital Signs Temp 97.4 F L 08/05/17 07:00 Pulse 96 08/05/17 07:46 Resp 21 08/05/17 07:00 BP 121/72 08/05/17 07:00 Pulse Ox 98 08/05/17 07:00 Intake & Output 08/04/17 08/05/17 08/05/17 18:59 06:59 18:59 Intake Total 1010.0 1500 Output Total 593 1850 320 Balance 417.0 -350 -320 Weight 65.5 kg Intake: IV 910.0 720 Dextrose 5%-0.45% NaCl 1, 470 320 000 ml @ 20 mls/hr IV . Q24H [facility] Rx#:[id number] Fat Emulsion 20% 250 ml 250 In Empty Bag 1 bag @ 21 mls/hr IV MoWeFr@1800 [facility] Rx#:[id number] Mvi, Adult No.4 with Vit 390 K 10 ml Trace (Conc-1Ml/ Dose) 1 ml In Amino Acid 5%-D25w+Lytes*E* 1,000 ml @ 30 mls/hr IV .Q24H [facility] Rx#:[id number] Piperacillin-Tazobactam 3 50.0 150 .375 gm In Dextrose/Water 1 50ml.bag @ 12.5 mls/hr IVPB Q8HR [facility] Rx#: [id number] Intake, IV Titration 100 700 Amount Magnesium Sulfate-D5w Pmx 100 1 gm In Dextrose/Water 1 100ml.bag @ 100 mls/hr IVPB ONCE ONE Rx#: [id number] Mvi, Adult No.4 with Vit 700 K 10 ml Trace (Conc-1Ml/ Dose) 1 ml In Amino Acid 5%-D25w+Lytes*E* 1,000 ml @ 40 mls/hr IV .Q24H [facility] Rx#:[id number] Oral 80 Output: Gastric Drainage 100 350 320 Urine 493 1000 Uretheral ([place]) 500 Post Void Residual 500 Other: Voiding Method Indwelling Catheter # Voids 1 - Constitutional General appearance: Present: cooperative, no acute distress - EENT ENT: Present: hearing grossly normal - Neck Neck: Present: normal ROM - Respiratory Details: No difficulty with respiration - Gastrointestinal Gastrointestinal Comment(s): Soft, appropriate tenderness, nondistended, no rebound, no guarding, incision site clean dry and intact - Musculoskeletal Musculoskeletal: Present: generalized weakness - Labs CBC & Chem 7: 08/05/17 06:40 08/05/17 06:40 Labs: Abnormal Lab Results - Last 24 Hours (Table) 08/05/17 08/05/17 Range/Units 06:40 06:40 WBC 10.9 H (3.8-10.6) k/uL RBC 3.71 L (3.80-5.40) m/uL Hgb 10.8 L (11.4-16.0) gm/dL MCHC 29.9 L (31.0-37.0) g/dL Neutrophils # 9.3 H (1.3-7.7) k/uL Lymphocytes # 0.4 L (1.0-4.8) k/uL Carbon Dioxide 34 H (22-30) mmol/L BUN 25 H (7-17) mg/dL Creatinine 1.32 H (0.52-1.04) mg/dL Glucose 124 H (74-99) mg/dL Phosphorus 2.2 L (2.5-4.5) mg/dL Magnesium 2.4 H (1.6-2.3) mg/dL Microbiology - Last 24 Hours (Table) 08/02/17 18:41 Blood Culture - Preliminary Blood No Growth after 48 hours 08/02/17 18:06 Blood Culture - Preliminary Blood No Growth after 48 hours Assessment and Plan Plan: 82-year-old female status post release of small bowel obstruction - Continue TPN and NG tube, continue to evaluate for increased bowel function - Continue medical management - Increase activity, up to chair - Progressing slowly
[2017-08-05] MEDS: MVI, ADULT NO.4 WITH VIT K 10 ML, TRACE (CONC-1ML/DOSE) 1 ML in AMINO ACID 5%-D25W+LYTE... IV SCH ×3 (08:50)
[2017-08-05] MEDS ORDERED: POTASSIUM CHLORIDE ER 20 MEQ TAB.ER PO STA ×3 (08:52→11:28)
--- NOTE | 2017-08-05 08:52 | P.PN ---
Subjective Patient is seen in follow-up for acute kidney injury. Renal function is improving with creatinine around 1.32 today. She still has an NG tube in place with output of about 200 mL overnight. She is maintained on TPN. Denies abdominal pain. Hemodynamically stable. Vital signs are stable. General: The patient appeared well nourished and normally developed. NG tube in place. HEENT: Head exam is unremarkable. Neck is without jugular venous distension. LUNGS: Lungs are clear to auscultation and percussion. Breath sounds decreased. HEART: Rate and Rhythm are regular. First and second heart sounds normal. No murmurs, rubs or gallops. ABDOMEN: Abdominal exam reveals normal bowel sounds. Non-tender and non- distended. No evidence of peritonitis. EXTREMITITES: No clubbing, cyanosis, or edema. Objective - Vital Signs Vital signs: Vital Signs Temp 97.4 F L 08/05/17 07:00 Pulse 96 08/05/17 07:46 Resp 21 08/05/17 07:00 BP 121/72 08/05/17 07:00 Pulse Ox 98 08/05/17 07:00 Intake & Output 08/04/17 08/05/17 08/05/17 18:59 06:59 18:59 Intake Total 1010.0 1500 Output Total 593 1850 320 Balance 417.0 -350 -320 Weight 65.5 kg Intake: IV 910.0 720 Dextrose 5%-0.45% NaCl 1, 470 320 000 ml @ 20 mls/hr IV . Q24H [facility] Rx#:[id number] Fat Emulsion 20% 250 ml 250 In Empty Bag 1 bag @ 21 mls/hr IV MoWeFr@1800 [facility] Rx#:[id number] Mvi, Adult No.4 with Vit 390 K 10 ml Trace (Conc-1Ml/ Dose) 1 ml In Amino Acid 5%-D25w+Lytes*E* 1,000 ml @ 30 mls/hr IV .Q24H [facility] Rx#:[id number] Piperacillin-Tazobactam 3 50.0 150 .375 gm In Dextrose/Water 1 50ml.bag @ 12.5 mls/hr IVPB Q8HR [facility] Rx#: [id number] Intake, IV Titration 100 700 Amount Magnesium Sulfate-D5w Pmx 100 1 gm In Dextrose/Water 1 100ml.bag @ 100 mls/hr IVPB ONCE ONE Rx#: [id number] Mvi, Adult No.4 with Vit 700 K 10 ml Trace (Conc-1Ml/ Dose) 1 ml In Amino Acid 5%-D25w+Lytes*E* 1,000 ml @ 40 mls/hr IV .Q24H [facility] Rx#:[id number] Oral 80 Output: Gastric Drainage 100 350 320 Urine 493 1000 Uretheral ([place]) 500 Post Void Residual 500 Other: Voiding Method Indwelling Catheter # Voids 1 - Labs CBC & Chem 7: 08/05/17 06:40 08/05/17 06:40 Labs: Abnormal Lab Results - Last 24 Hours (Table) 08/05/17 08/05/17 Range/Units 06:40 06:40 WBC 10.9 H (3.8-10.6) k/uL RBC 3.71 L (3.80-5.40) m/uL Hgb 10.8 L (11.4-16.0) gm/dL MCHC 29.9 L (31.0-37.0) g/dL Neutrophils # 9.3 H (1.3-7.7) k/uL Lymphocytes # 0.4 L (1.0-4.8) k/uL Carbon Dioxide 34 H (22-30) mmol/L BUN 25 H (7-17) mg/dL Creatinine 1.32 H (0.52-1.04) mg/dL Glucose 124 H (74-99) mg/dL Phosphorus 2.2 L (2.5-4.5) mg/dL Magnesium 2.4 H (1.6-2.3) mg/dL Microbiology - Last 24 Hours (Table) 08/02/17 18:41 Blood Culture - Preliminary Blood No Growth after 48 hours 08/02/17 18:06 Blood Culture - Preliminary Blood No Growth after 48 hours Assessment and Plan Plan: Assessment: #1. Nonoliguric acute kidney injury mostly prerenal. Renal function improved with IV hydration. Fluids have been discontinued. Creatinine around 1.32 today. #2. Hypokalemia due to GI losses status post replacement. Magnesium replete. #3. Metabolic alkalosis secondary to loss of gastric contents. Patient still has an NG tube in place. Improved. #4. Bowel obstruction status post exploratory laparotomy. Plan: Replace potassium. 20 mEq today. Avoid nephrotoxic agents and hypotensive episodes. Maintain TPN per surgical recommendations.
[2017-08-05] MEDS ORDERED: POTASSIUM CHLORIDE ORAL LIQUID 40 MEQ/30 ML CUP NG-TUBE SCH (09:00)
[2017-08-05] MEDS: DEXTROSE 5%-0.45% NACL 1,000 ML IV SCH (09:04)
[2017-08-05] MEDS: DOCUSATE 100 MG CAP PO SCH (09:06)
[2017-08-05] MEDS: CALCIUM CARB-VIT D 500MG-200UN 1 EACH TAB PO SCH (10:27)
[2017-08-05] MEDS: GABAPENTIN 300 MG CAP PO SCH ×2 (10:27→23:29)
[2017-08-05] MEDS: ACETAMINOPHEN TAB 325 MG TAB PO SCH ×2 (10:28→23:28)
[2017-08-05] MEDS: NYSTATIN 100,000 UNIT/ML SUSP 500,000 UNIT/5 ML CUP PO SCH ×4 (11:30→23:29)
[2017-08-05] MEDS: PANTOPRAZOLE 40 MG/10 ML VIAL IV SCH (11:54)
--- NOTE | 2017-08-05 13:14 | P.PN ---
Subjective Progress Note Date: 08/05/17 This is an 82-year-old female that we saw in consultation. She has a history of breast and colon cancer as well as hypertension. She apparently lives at a [facility] and is seen by a visiting physician by the name of Dr. Beth. She had weakness. She also had cough and shortness of breath. Not producing any phlegm. She had a temperature elevation of 101.2. She also was found have atrial fibrillation with rapid ventricular response with a heart rate about 1 20 bpm. She appears to be a little short of breath even at the current time. Chest x-ray initially shows some patchy infiltrates in the right midlung and right lower lobe potentially consistent with pneumonia. Again her symptoms could be consistent with heart failure and/or pneumonia. Anyway she is doing a bit better not a lot. Not a particularly good historian. On 08/01/2017 patient seen in follow-up on selective care unit. His any worsening dyspnea, lung sounds are positive for scattered rhonchi. She remains on 3 L per nasal cannula with O2 sat at 94%. Afebrile, hemodynamically stable. She still has NG tube in place for persistent abdominal distention. Abdominqal/pelvis CT from 07/31/2017 showed dilated small bowel consistent with distal mechanical small bowel obstruction. Chest x-ray from 08/01/2017 has been reviewed and showed chronic changes without evidence of any acute pulmonary disease. Surgery is planned and on laparotomy with release of small bowel obstruction at 1300 today. From pulmonary/critical care standpoint patient is stable to go to surgery today. On 08/02/2017 patient is seen , status post exploratory laparotomy with release of bowel obstruction, postop day 1. Patient appears to be lethargic, arousable to verbal stimuli, afebrile, hemodynamically stable, slightly tachycardic with a heart rate of 10-105 BPM. Is on 2 L per nasal cannula, with O2 sat at 91%. When necessary doses of Dilaudid for incisional pain. NG tube is in place to low intermittent suction with a total of 600 mL of liquid green output last 24 hours. Mid abdominal incision covered with surgical dressing. No bowel sounds auscultated, abdomen is soft, tender to palpation. Labs been reviewed, WBCs up to 13.1, hemoglobin is 12.8, serum sodium is up to 46, serum potassium is 3.3, carbon dioxide is 41, B1 is 33, creatinine is 2.5. Patient has been initiated on D5 0.45 normal saline and 80 mL per hour. Remains nothing by mouth. TPN will be started today, patient did receive a PICC line. Culture results have been reviewed and blood culture shows no growth since admission. On 08/03/2017 patient is seen again. She got transferred to the intensive care last night for concerns of decreased level of consciousness, fever, relative hypotension and tachycardia, and decreased respirations. Patient was suspected to have pain medication related hypotension, was given a dose of Narcan, with improvement of her level of consciousness, respirations, hypoxia, blood pressure. Chest x-ray was obtained in the evening of 2017 and showed pulmonary vascular congestion, pleural effusions, and basilar mild infiltrates. Patient's inspiratory effort was poor during the time of the chest x-ray. Patient did spike a temp of 102.1F prior to the transfer. New set of blood cultures and urine culture was collected and sent yesterday. Patient was given 1 L of 0.9 normal saline IV bolus, her maintenance IV fluid is D5 0.45 normal saline at 80 ML per hour, TPN was started and is currently running at 30 ML per hour, lipids are running at 21 ML per hour. No vasopressor support was necessary as the patient responded well to IV fluids and the Narcan. Microbiology has been reviewed, urine culture collected on 09/2017 is pending. Blood culture collected on 07/25/2017 shows no growth. This morning patient is much more awake, alert, responds to questions appropriately. She is alert, oriented 3. Appropriate, she remembered her surgeon this morning. Her lung sounds are clear to auscultation, no rales, no rhonchi, no wheezing. She denies any pain. She is on 3 L per nasal cannula with O2 sat 95%. She has not had any febrile episodes this morning. Continues on Zosyn. She still has NG tube in place, to low intermittent suction, bowel sounds are now present, hypoactive. Abdomen is soft, nontender. Surgical incision is clean dry and intact and covered with surgical dressing. She denies any pain. On 08/04/2017 patient seen again in the intensive care. She is much more awake , alert, responds appropriately to questions. Denies any acute distress. Lung sounds are positive for scattered rhonchi, especially over posterior lower lobes. Patient needs significant encouragement with incentive spirometer, is able to achieve 250-500 on the today. She is tolerating ice chips, bowel sounds are absent today. NG tube remains in place, to low intermittent suction , the output has increased since patient started taking and ice chips. Abdomen remains soft, nontender, mid abdominal incision is covered with a surgical dressing, clean dry and intact. No bowel movements yet. Not passing gas yet. She still has a product safety engineer at the bedside. Remains afebrile, hemodynamically stable, on 2 L per nasal cannula with O2 sat 97-100%. Chest x- ray today was reviewed, shows persistent pneumoperitoneum, cardiomegaly with central vascular congestion, and patchy bibasilar atelectasis and/or infiltrate. Lab work shows the VBC of 13.4, hemoglobin 10.6, serum sodium is within normal limits no and is down to 143, serum potassium is 2.8, renal profile is improving further, with B1 of 35, and creatinine of 1.6. Patient is making adequate amount of urine, nonoliguric. Denies any specific complaints. The patient is seen again today 08/05/2017 in follow-up on the surgical floor. She is awake and alert in no acute distress. She denies any worsening shortness of breath. She has a loose nonproductive cough. Afebrile. HEENT in good O2 saturations in the 90s on 2 L/m per nasal cannula. She's been up with assistance of physical therapy. She is continuing to do well with the incentive spirometer up to 800 amounts today. Her NG tube has been removed. She remains nothing by mouth other than ice chips however. Blood cultures reveal no growth to date. Urine culture reveals no growth. White count 10.9. Hemoglobin 10.8. Creatinine improved at 1.32. She remains on Zosyn. Objective - Vital Signs Vital signs: Vital Signs Temp 97.4 F L 08/05/17 07:00 Pulse 96 08/05/17 11:07 Resp 21 08/05/17 07:00 BP 121/72 08/05/17 07:00 Pulse Ox 98 08/05/17 07:00 Intake & Output 08/04/17 08/05/17 08/05/17 18:59 06:59 18:59 Intake Total 1010.0 1500 984 Output Total 593 1850 320 Balance 417.0 -350 664 Weight 65.5 kg Intake: IV 910.0 720 Dextrose 5%-0.45% NaCl 1, 470 320 000 ml @ 20 mls/hr IV . Q24H [facility] Rx#:[id number] Fat Emulsion 20% 250 ml 250 In Empty Bag 1 bag @ 21 mls/hr IV MoWeFr@1800 [facility] Rx#:[id number] Mvi, Adult No.4 with Vit 390 K 10 ml Trace (Conc-1Ml/ Dose) 1 ml In Amino Acid 5%-D25w+Lytes*E* 1,000 ml @ 30 mls/hr IV .Q24H [facility] Rx#:[id number] Piperacillin-Tazobactam 3 50.0 150 .375 gm In Dextrose/Water 1 50ml.bag @ 12.5 mls/hr IVPB Q8HR [facility] Rx#: [id number] Intake, IV Titration 100 700 984 Amount Magnesium Sulfate-D5w Pmx 100 1 gm In Dextrose/Water 1 100ml.bag @ 100 mls/hr IVPB ONCE ONE Rx#: [id number] Mvi, Adult No.4 with Vit 700 984 K 10 ml Trace (Conc-1Ml/ Dose) 1 ml In Amino Acid 5%-D25w+Lytes*E* 1,000 ml @ 40 mls/hr IV .Q24H [facility] Rx#:[id number] Oral 80 Output: Gastric Drainage 100 350 320 Urine 493 1000 Uretheral ([place]) 500 Post Void Residual 500 Other: Voiding Method Indwelling Catheter # Voids 1 - Exam Conversational dyspnea. Oriented 2. HEENT examination is grossly unremarkable. Mucous membranes are moist. No oral lesions. Neck supple. Full range of motion. No adenopathy thyromegaly or neck vein distention. Cardiovascular examination reveals a irregular rhythm. Heart rate less than 100. S1-S2 normal. No murmur. Lungs reveal few scattered rhonchi. Some bibasilar crackles. No wheezes. Breath sounds equal bilaterally. Abdomen soft bowel sounds are heard. No masses or tenderness. Extremities are intact. No cyanosis clubbing. Mild edema. Skin is without rash or lesion. Neurologic examination is difficult to perform. - Labs CBC & Chem 7: 08/05/17 06:40 08/05/17 06:40 Labs: Abnormal Lab Results - Last 24 Hours (Table) 08/05/17 08/05/17 Range/Units 06:40 06:40 WBC 10.9 H (3.8-10.6) k/uL RBC 3.71 L (3.80-5.40) m/uL Hgb 10.8 L (11.4-16.0) gm/dL MCHC 29.9 L (31.0-37.0) g/dL Neutrophils # 9.3 H (1.3-7.7) k/uL Lymphocytes # 0.4 L (1.0-4.8) k/uL Carbon Dioxide 34 H (22-30) mmol/L BUN 25 H (7-17) mg/dL Creatinine 1.32 H (0.52-1.04) mg/dL Glucose 124 H (74-99) mg/dL Phosphorus 2.2 L (2.5-4.5) mg/dL Magnesium 2.4 H (1.6-2.3) mg/dL Microbiology - Last 24 Hours (Table) 08/02/17 18:41 Blood Culture - Preliminary Blood No Growth after 48 hours 08/02/17 18:06 Blood Culture - Preliminary Blood No Growth after 48 hours Assessment and Plan Assessment: Impression: #1. Sepsis secondary to possible right lower lobe pneumonia, or acute small bowel obstruction, and acute urinary tract infection, she presented with febrile illness, tachycardia, A. fib RVR, weakness, leucocytosis, cough without sputum production, hypotension, urinalysis positive for large amount of leukocyte esterase, WBCs, bacteria and mucus. Follow-up x-ray on 08/04/2017 shows cardiomegaly with central vessel congestion, and patchy bibasilar atelectasis. #2. Acute kidney failure secondary to sepsis and hypotension #3. COPD exacerbation #4. New-onset A. fib with RVR, present on admission #5. History of CVA/TIA #6. Hyperlipidemia #7. Hypertension #8. History of colon and breast CA, status post post-double mastectomy #9. 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 Small bowel obstruction, status post exposure laparotomy with release of small bowel obstruction, postop day 4. #12. Acute hypoxic respiratory failure secondary to hypoventilation may have been related to sedation. Improved Plan: The patient was seen and evaluated by Dr. Peacock. She is quite stable from the pulmonary standpoint. We'll continue to encourage increased use of the incentive spirometer and cough and deep breathing exercises. She remains on antibiotics in the form of Zosyn. Continue bronchodilators. Increase her activity as tolerated. We will follow the patient on as-needed basis. I, the cosigning physician, have performed a history and physical examination on the patient. Lung sounds he scattered rhonchi. Crackles in the posterior bases. Maintaining good O2 saturations in the 90s on 2 L/m per nasal cannula. I have discussed the assessment and plan of care with my nurse practitioner, Marilyn Rodriguez. I attest the above documented note as dictated by her.
[2017-08-05] MEDS ORDERED: LORazepam 2 MG/ML INJ IV PRN (18:46)
[2017-08-05] MEDS ORDERED: OLANZapine ODT 10 MG TAB PO PRN (18:46)
[2017-08-05] MEDS ORDERED: HALOPERIDOL LACTATE 5 MG/ML 1 ML VIAL IM PRN (18:46)
[2017-08-05] MEDS ORDERED: traMADol 50 MG TAB PO PRN (18:46)
--- NOTE | 2017-08-05 22:08 | PN ---
PROGRESS NOTE DATE OF SERVICE: 08/05/17 This 82-year-old woman who was admitted with multiple medical problems including sepsis secondary to right lower lobe pneumonia and acute small-bowel obstruction and UTI also had COPD acute exacerbation. The patient was monitored in ICU. NG tube has been removed at this time, but however reinsertion is not considered at this time. The patient also had a renal failure and COPD acute exacerbation also. The patient underwent exploratory laparotomy and small bowel obstruction and the patient is postoperative at this time. Patient closely monitored. PAST MEDICAL HISTORY: Reviewed. REVIEW OF SYSTEMS: Cardiovascular: No angina or palpitations. Respiration as mentioned. GI: As mentioned earlier. no dysuria. Central nervous system: No numbness or weakness. MEDICATIONS: Current medications are reviewed and include: 1. Tylenol 650 p.o. b.i.d. 2. DuoNeb q.i.d. and p.r.n. 4. Lipitor 10 mg q.h.s. 5. Cepacol 1 p.o. q.i.d. p.r.n. 6. Os-Temo with vitamin D 1 p.o. b.i.d. 7. Colace 100 mg p.o. b.i.d. 8. TPN. 9. Robitussin. 10.Haldol 5 mg IM q.6h p.r.n. 11.Dilaudid. 12.Claritin 10 mg p.o. daily. 13.Ativan 1 mg q.6h p.r.n. 14.Narcan. 15.Zyprexa. 16.Protonix. 17.Phenergan. 18.Ultram. PHYSICAL EXAM: Patient is alert, oriented x1, pulse 98, blood pressure 98/72, respiration 15, temperature 97.9, pulse ox 98% on room air. HEENT: Conjunctivae normal. Oral mucosa moist. Neck is no jugular venous distention. No carotid bruit. No lymph node enlargement. Cardiovascular system: S1, S2, no S3, no S4. Respirations: Breath sounds diminished in the bases. A few scattered rhonchi and crackles. ABDOMEN: Soft, status post surgery. Legs no edema and no swelling. NERVOUS SYSTEM: Higher functions as mentioned earlier. Moves all four extremities. Mild diffuse weakness. Lymphatics: No lymph nodes palpable in the neck, axillae or groin. Skin: No ulcer, rashes or bleeding. LABORATORY DATA: WBC 10.9, hemoglobin 10.8, potassium 3.5, creatinine is 1.32. ASSESSMENT: 1. Acute right lower pneumonia with sepsis. 2. Small-bowel obstruction status post exploratory laparotomy and lysis of adhesions. 3. Acute urinary tract infection. 4. Atrial fibrillation with rapid ventricular rate. 5. Change in mental status acute metabolic encephalopathy multifactorial. 6. Chronic obstructive pulmonary disease acute exacerbation. 7. Gastroesophageal reflux disease. 8. Hyperlipidemia. 9. History of schizophrenia. 10.History of cerebrovascular accident in the past with possibly ileus and NG tube. 11.Acute hypoxic respiratory failure secondary to #1. 12.FULL CODE. 13.Severe hypokalemia. RECOMMENDATIONS AND DISCUSSION: In this 82-year-old woman who presented with multiple complex medical issues, we will monitor the patient closely, continue the current medications, continue symptomatic treatment, continue the bronchodilators. I will try to avoid the sedatives and continue to monitor. Prognosis guarded because of multiple complex medical issues and currently the patient is still n.p.o. I would also recommend proton pump inhibitors. DVT prophylaxis. Continue to monitor with multiple consultants. Guarded prognosis. Further recommendations to follow. See orders for details. MMODL / IJN: [id number] / ALIYAH
[2017-08-06] MEDS: DOCUSATE 100 MG CAP PO SCH ×3 (00:01→20:37)
[2017-08-06] MEDS: CALCIUM CARB-VIT D 500MG-200UN 1 EACH TAB PO SCH ×3 (00:01→20:37)
[2017-08-06] MEDS: ATORVASTATIN 10 MG TAB PO SCH ×2 (00:01→20:37)
[2017-08-06 06:51] LABS: Basophils % (A) 1 %; Eosinophils # (A) 0.6 k/uL (0-0.7); Eosinophils % (A) 6 %; HCT 35.2 % (34.0-46.0); HGB 10.7 gm/dL (11.4-16.0); Hypochromasia Marked; Lymphocytes # (A) 0.6 k/uL (1.0-4.8); Lymphocytes % (A) 7 %; MCH 29.2 pg (25.0-35.0); MCHC 30.4 g/dL (31.0-37.0); MCV 96.1 fL (80.0-100.0); Mean Platelet Volume 8.2; Monocytes # (A) 0.4 k/uL (0-1.0); Monocytes % (A) 4 %; Neutrophils # (A) 7.1 k/uL (1.3-7.7); Neutrophils % (A) 81 %; Platelet Count 214 k/uL (150-450); RBC 3.66 m/uL (3.80-5.40); RDW 15.4 % (11.5-15.5); WBC 8.8 k/uL (3.8-10.6)
[2017-08-06 07:17] LABS: Calcium 9.1 mg/dL (8.4-10.2); Magnesium 2.1 mg/dL (1.6-2.3); Potassium 4.5 mmol/L (3.5-5.1)
--- NOTE | 2017-08-06 08:48 | PN ---
PROGRESS NOTE DATE OF SERVICE: 08/05/2017. REASON FOR FOLLOWUP: Aspiration pneumonia. INTERVAL HISTORY: The patient is afebrile. She is breathing more comfortably. Denies having any chest pain. Occasional cough. No abdominal pain. No nausea, vomiting or diarrhea. EXAMINATION: Blood pressure 98/72 with a pulse of 98, temperature 97.8. She is 98% on room air. General description is an elderly female, lying in bed in no distress. RESPIRATORY SYSTEM: Unlabored breathing with decreased breath sounds in the bases. No wheeze. HEART: S1, S2. Regular rate and rhythm. ABDOMEN: Soft, No tenderness. LABS: White count down to 10.9 with a BUN of 25, creatinine is 1.32. Blood culture has been negative. Sputum not collected. DIAGNOSTIC IMPRESSION AND PLAN: Patient with an episode of fever, decreased level of responsiveness after Surgery for small bowel obstruction and a question of aspiration pneumonia. The patient is currently covered with Zosyn and that will continue. We will try to obtain a sputum to narrow down antibiotics. Continue supportive care. MMODL / ZULEIKAN: [id number] / MTDD
[2017-08-06] MEDS: IPRATROPIUM-ALBUTEROL 3 ML NEB INHALATION SCH ×4 (09:25→19:39)
--- NOTE | 2017-08-06 09:27 | P.PN ---
Subjective Progress Note Date: 08/06/17 Patient seen and examined at bedside. Per nursing, the NGT that was in place fell out yesterday. I was notified and I did order a trial of CLD. She had no nausea with the liquids. She passed flatus this AM. She is comfortable. Denies abdominal pain. Objective - Vital Signs Vital signs: Vital Signs Temp 97.8 F 08/06/17 07:12 Pulse 84 08/06/17 07:12 Resp 16 08/06/17 07:12 BP 115/58 08/06/17 07:12 Pulse Ox 99 08/06/17 07:12 Intake & Output 08/05/17 08/06/17 08/06/17 18:59 06:59 18:59 Intake Total 1514 260 Output Total 730 1410 125 Balance 784 -1150 -125 Intake: IV 210 210 Dextrose 5%-0.45% NaCl 1, 160 160 000 ml @ 20 mls/hr IV . Q24H [facility] Rx#:[id number] Piperacillin-Tazobactam 3 50 50 .375 gm In Dextrose/Water 1 50ml.bag @ 12.5 mls/hr IVPB Q8HR [facility] Rx#: [id number] Intake, IV Titration 1304 Amount Mvi, Adult No.4 with Vit 320 K 10 ml Trace (Conc-1Ml/ Dose) 1 ml In Amino Acid 5%-D25w+Lytes*E* 1,000 ml @ 40 mls/hr IV .Q24H [facility] Rx#:[id number] Mvi, Adult No.4 with Vit 984 K 10 ml Trace (Conc-1Ml/ Dose) 1 ml In Amino Acid 5%-D25w+Lytes*E* 1,000 ml @ 40 mls/hr IV .Q24H [facility] Rx#:[id number] Oral 50 Output: Gastric Drainage 320 Urine 410 1410 125 Uretheral ([place]) 410 320 125 Other: Voiding Method Indwelling Catheter Indwelling Catheter Indwelling Catheter - Constitutional General appearance: Present: cooperative, no acute distress - EENT Eyes: Present: PERRLA ENT: Present: hearing grossly normal - Neck Neck: Present: normal ROM - Respiratory Details: no difficulty with respiration - Gastrointestinal Gastrointestinal Comment(s): soft, appropriate tenderness, nondistended, no rebound, no guarding, incision site C/D/I - Musculoskeletal Musculoskeletal: Present: generalized weakness - Labs CBC & Chem 7: 08/06/17 05:58 08/06/17 05:58 Labs: Abnormal Lab Results - Last 24 Hours (Table) 08/06/17 08/06/17 Range/Units 05:58 05:58 RBC 3.66 L (3.80-5.40) m/uL Hgb 10.7 L (11.4-16.0) gm/dL MCHC 30.4 L (31.0-37.0) g/dL Lymphocytes # 0.6 L (1.0-4.8) k/uL BUN 25 H (7-17) mg/dL Creatinine 1.34 H (0.52-1.04) mg/dL Glucose 115 H (74-99) mg/dL Microbiology - Last 24 Hours (Table) 08/02/17 18:41 Blood Culture - Preliminary Blood No Growth after 72 hours 08/02/17 18:06 Blood Culture - Preliminary Blood No Growth after 72 hours Assessment and Plan Plan: 82-year-old female status post release of small bowel obstruction - Continue CLD, half rate TPN - Await more bowel function - Continue medical management - Increase activity, up to chair - Progressing slowly
[2017-08-06] MEDS: NYSTATIN 100,000 UNIT/ML SUSP 500,000 UNIT/5 ML CUP PO SCH ×3 (09:40→20:37)
[2017-08-06] MEDS: GABAPENTIN 300 MG CAP PO SCH ×2 (09:41→20:37)
[2017-08-06] MEDS: HEPARIN SODIUM,PORCINE 5,000 UNIT/ML 1 ML VIAL SQ SCH ×2 (09:41→15:28)
[2017-08-06] MEDS: PANTOPRAZOLE 40 MG/10 ML VIAL IV SCH (09:42)
[2017-08-06] MEDS: MVI, ADULT NO.4 WITH VIT K 10 ML, TRACE (CONC-1ML/DOSE) 1 ML in AMINO ACID 5%-D25W+LYTE... IV SCH ×3 (09:42)
[2017-08-06] MEDS: ACETAMINOPHEN TAB 325 MG TAB PO SCH ×2 (09:44→20:37)
[2017-08-06] MEDS: PIPERACILLIN-TAZOBACTAM 3.375 GM in DEXTROSE/WATER 1 50ML.BAG IVPB SCH ×2 (10:06→15:28)
--- NOTE | 2017-08-06 10:35 | P.PN ---
Subjective Patient is seen in follow-up for acute kidney injury. Renal function is stable with creatinine at 1.34 today. NG tube has been removed and she is now on a clear liquid diet. She seems to be tolerating it well. She is also maintained on TPN. Denies abdominal pain. Hemodynamically stable. Vital signs are stable. General: The patient appeared well nourished and normally developed. NG tube in place. HEENT: Head exam is unremarkable. Neck is without jugular venous distension. LUNGS: Lungs are clear to auscultation and percussion. Breath sounds decreased. HEART: Rate and Rhythm are regular. First and second heart sounds normal. No murmurs, rubs or gallops. ABDOMEN: Abdominal exam reveals normal bowel sounds. Non-tender and non- distended. No evidence of peritonitis. EXTREMITITES: No clubbing, cyanosis, or edema. Objective - Vital Signs Vital signs: Vital Signs Temp 97.8 F 08/06/17 07:12 Pulse 100 08/06/17 09:39 Resp 16 08/06/17 07:12 BP 115/58 08/06/17 07:12 Pulse Ox 99 08/06/17 09:28 Intake & Output 08/05/17 08/06/17 08/06/17 18:59 06:59 18:59 Intake Total 1514 260 994.667 Output Total 730 1410 125 Balance 784 -1150 869.667 Intake: IV 210 210 Dextrose 5%-0.45% NaCl 1, 160 160 000 ml @ 20 mls/hr IV . Q24H [facility] Rx#:[id number] Piperacillin-Tazobactam 3 50 50 .375 gm In Dextrose/Water 1 50ml.bag @ 12.5 mls/hr IVPB Q8HR [facility] Rx#: [id number] Intake, IV Titration 1304 994.667 Amount Mvi, Adult No.4 with Vit 984 994.667 K 10 ml Trace (Conc-1Ml/ Dose) 1 ml In Amino Acid 5%-D25w+Lytes*E* 1,000 ml @ 20 mls/hr IV .Q24H [facility] Rx#:[id number] Mvi, Adult No.4 with Vit 320 K 10 ml Trace (Conc-1Ml/ Dose) 1 ml In Amino Acid 5%-D25w+Lytes*E* 1,000 ml @ 40 mls/hr IV .Q24H [facility] Rx#:[id number] Oral 50 Output: Gastric Drainage 320 Urine 410 1410 125 Uretheral ([place]) 410 320 125 Other: Voiding Method Indwelling Catheter Indwelling Catheter Indwelling Catheter - Labs CBC & Chem 7: 08/06/17 05:58 08/06/17 05:58 Labs: Abnormal Lab Results - Last 24 Hours (Table) 08/06/17 08/06/17 Range/Units 05:58 05:58 RBC 3.66 L (3.80-5.40) m/uL Hgb 10.7 L (11.4-16.0) gm/dL MCHC 30.4 L (31.0-37.0) g/dL Lymphocytes # 0.6 L (1.0-4.8) k/uL BUN 25 H (7-17) mg/dL Creatinine 1.34 H (0.52-1.04) mg/dL Glucose 115 H (74-99) mg/dL Microbiology - Last 24 Hours (Table) 08/02/17 18:41 Blood Culture - Preliminary Blood No Growth after 72 hours 08/02/17 18:06 Blood Culture - Preliminary Blood No Growth after 72 hours Assessment and Plan Plan: Assessment: #1. Nonoliguric acute kidney injury mostly prerenal. Renal function improved with IV hydration. Fluids have been discontinued. Creatinine stable at 1.34 today. #2. Hypokalemia due to GI losses status post replacement. Magnesium replete. Improved. #3. Metabolic alkalosis secondary to loss of gastric contents. NG tube has been discontinued. Improved. #4. Bowel obstruction status post exploratory laparotomy. #5. Chronic kidney disease. Unclear as to what her baseline renal function is. Plan: No changes from nephrology standpoint. Avoid nephrotoxic agents and hypotensive episodes. Advance diet per surgical recommendations. Repeat electrolytes in the morning.
[2017-08-06 11:22] LABS: Glucose,Whole Blood 119 mg/dL (75-99)
[2017-08-06 17:05] LABS: Glucose,Whole Blood 110 mg/dL (75-99)
[2017-08-06 20:27] LABS: Glucose,Whole Blood 137 mg/dL (75-99)
[2017-08-07] MEDS: NYSTATIN 100,000 UNIT/ML SUSP 500,000 UNIT/5 ML CUP PO SCH ×5 (01:08→21:30)
[2017-08-07] MEDS: HEPARIN SODIUM,PORCINE 5,000 UNIT/ML 1 ML VIAL SQ SCH ×4 (01:09→23:28)
[2017-08-07] MEDS: PIPERACILLIN-TAZOBACTAM 3.375 GM in DEXTROSE/WATER 1 50ML.BAG IVPB SCH ×4 (01:09→23:28)
[2017-08-07 07:10] LABS: Glucose,Whole Blood 112 mg/dL (75-99)
[2017-08-07 07:13] LABS: Basophils % (A) 0 %; Eosinophils # (A) 0.6 k/uL (0-0.7); Eosinophils % (A) 6 %; HCT 33.2 % (34.0-46.0); HGB 10.6 gm/dL (11.4-16.0); Hypochromasia Slight; Lymphocytes # (A) 0.5 k/uL (1.0-4.8); Lymphocytes % (A) 5 %; MCH 29.2 pg (25.0-35.0); MCHC 31.8 g/dL (31.0-37.0); MCV 91.7 fL (80.0-100.0); Mean Platelet Volume 8.7; Monocytes # (A) 0.3 k/uL (0-1.0); Monocytes % (A) 3 %; Neutrophils # (A) 8.4 k/uL (1.3-7.7); Neutrophils % (A) 84 %; Platelet Count 211 k/uL (150-450); RBC 3.62 m/uL (3.80-5.40); RDW 14.8 % (11.5-15.5); WBC 9.9 k/uL (3.8-10.6)
[2017-08-07 07:36] LABS: Calcium 8.8 mg/dL (8.4-10.2); Magnesium 1.8 mg/dL (1.6-2.3); Phosphorus 2.5 mg/dL (2.5-4.5); Potassium 4.1 mmol/L (3.5-5.1)
--- NOTE | 2017-08-07 08:28 | PN ---
PROGRESS NOTE DATE OF SERVICE: 08/06/2017 This 82-year-old woman who was admitted with multiple medical problems being closely monitored. The patient also had surgery. The patient seems to be improving. NG tube is removed. The patient also had features of sepsis. PHYSICAL EXAM: Alert and oriented x1. Pulse 91, blood pressure 115/70, respirations 16, temperature 97.7, pulse ox 100% on 2 L. HEENT conjunctivae normal. Oral mucosa moist. Neck is no jugular venous distention. No carotid bruit. No lymph node enlargement. Cardiovascular S1-S2 muffled. No S3, no S4. Respiratory: Breath sounds diminished in the bases. A few scattered rhonchi and crackles. ABDOMEN: Soft. Status post surgery. Legs are no edema. No swelling. Central nervous system: No focal deficits. LABS: WBC 8.2, hemoglobin 10.7, creatinine 1.34. ASSESSMENT: 1. Acute right lower lobe pneumonia possibly gram-negative with sepsis. 2. Small-bowel obstruction status post exploratory laparotomy, lysis of adhesions. 3. Acute urinary tract infection. 4. Change in mental status acute metabolic encephalopathy multifactorial. 5. Atrial fibrillation, rapid ventricular rate. 6. Chronic obstructive pulmonary disease acute exacerbation. 7. Gastroesophageal reflux disease. 8. Hyperlipidemia. 9. History of schizophrenia. 10.History of cerebrovascular accident in the past. 11.Acute hypoxic respiratory failure second to #1. 12.Severe hypokalemia. 13.FULL CODE. RECOMMENDATIONS AND DISCUSSION: Continue current medications, continue to monitor, symptomatic treatment. Otherwise, at this time, I recommend to continue the antibiotics, bronchodilators and incentive spirometry. Advance diet per surgery. Closely follow with surgery. Guarded prognosis. Further recommendations to follow. MMODL / IJN: [id number] /
[2017-08-07] MEDS: ACETAMINOPHEN TAB 325 MG TAB PO SCH ×2 (08:35→21:29)
[2017-08-07] MEDS: GABAPENTIN 300 MG CAP PO SCH ×2 (08:36→19:52)
[2017-08-07] MEDS: CALCIUM CARB-VIT D 500MG-200UN 1 EACH TAB PO SCH ×2 (08:36→19:52)
[2017-08-07] MEDS: PANTOPRAZOLE 40 MG/10 ML VIAL IV SCH (08:37)
[2017-08-07] MEDS: DOCUSATE 100 MG CAP PO SCH ×2 (08:37→19:52)
[2017-08-07] MEDS: IPRATROPIUM-ALBUTEROL 3 ML NEB INHALATION SCH ×4 (09:25→21:46)
--- NOTE | 2017-08-07 09:58 | PN ---
PROGRESS NOTE DATE OF SERVICE: 08/06/2017. REASON FOR FOLLOWUP: Aspiration pneumonia. INTERVAL HISTORY: The patient is afebrile. She is more awake, alert. She is breathing comfortably. RN mentioned no choking on the food. No nausea, vomiting and no diarrhea. EXAMINATION: Blood pressure 115/70 with a pulse of 91, temperature 97.7. She is 100% on 2 L nasal cannula. General description is an elderly female lying in bed in no distress. Respiratory system: Unlabored breathing with decreased breath sounds in the bases. No wheeze. Heart S1, S2 regular rate and rhythm. Abdomen soft, no tenderness. LABS: Hemoglobin is 10.7, white count 8.8 with a BUN of 25, creatinine is 1.34. Blood culture repeat has been negative. No sputum was collected. DIAGNOSTIC IMPRESSION AND PLAN: Patient with fever, with a question of possible aspiration pneumonia. The patient is currently covered with Zosyn that will be continued. Will try to obtain a sputum. Continue supportive care. MMODL / IJN: [id number] / ALIYAH
--- NOTE | 2017-08-07 11:23 | P.PN ---
Subjective Progress Note Date: 08/07/17 Principal diagnosis: S/P laparotomy with release of small bowel obstruction The is doing somewhat better. She is coughing and the cough secretions better today. She denies any abdominal pain or nausea. Objective - Vital Signs Vital signs: Vital Signs Temp 99.2 F 08/07/17 07:00 Pulse 92 08/07/17 09:39 Resp 18 08/07/17 07:00 BP 128/53 08/07/17 07:00 Pulse Ox 99 08/07/17 07:00 Intake & Output 08/06/17 08/07/17 08/07/17 18:59 06:59 18:59 Intake Total 2084.667 670 240 Output Total 920 700 Balance 1164.667 -30 240 Weight 65.04 kg Intake: IV 370 370 Dextrose 5%-0.45% NaCl 1, 160 160 000 ml @ 20 mls/hr IV . Q24H [facility] Rx#:[id number] Mvi, Adult No.4 with Vit 160 160 K 10 ml Trace (Conc-1Ml/ Dose) 1 ml In Amino Acid 5%-D25w+Lytes*E* 1,000 ml @ 20 mls/hr IV .Q24H [facility] Rx#:[id number] Piperacillin-Tazobactam 3 50 50 .375 gm In Dextrose/Water 1 50ml.bag @ 12.5 mls/hr IVPB Q8HR [facility] Rx#: [id number] Intake, IV Titration 994.667 Amount Mvi, Adult No.4 with Vit 994.667 K 10 ml Trace (Conc-1Ml/ Dose) 1 ml In Amino Acid 5%-D25w+Lytes*E* 1,000 ml @ 20 mls/hr IV .Q24H [facility] Rx#:[id number] Oral 720 300 240 Output: Urine 920 700 Uretheral ([place]) 300 200 Other: Voiding Method Indwelling Catheter Indwelling Catheter Indwelling Catheter - Constitutional General appearance: Present: cooperative, no acute distress - Respiratory Respiratory: negative: rhonchi - Cardiovascular Rhythm: other (Minimally tachycardic) - Gastrointestinal General gastrointestinal: Present: normal bowel sounds, soft Localized gastrointestinal: surgical scar: diffuse - Labs CBC & Chem 7: 08/07/17 06:48 08/07/17 06:48 Labs: Abnormal Lab Results - Last 24 Hours (Table) 08/06/17 08/06/17 08/06/17 Range/Units 11:21 16:45 20:10 RBC (3.80-5.40) m/uL Hgb (11.4-16.0) gm/dL Hct (34.0-46.0) % Neutrophils # (1.3-7.7) k/uL Lymphocytes # (1.0-4.8) k/uL BUN (7-17) mg/dL Creatinine (0.52-1.04) mg/dL Glucose (74-99) mg/dL POC Glucose (mg/dL) 119 H 110 H 137 H (75-99) mg/dL 08/07/17 08/07/17 08/07/17 Range/Units 06:48 06:48 06:55 RBC 3.62 L (3.80-5.40) m/uL Hgb 10.6 L (11.4-16.0) gm/dL Hct 33.2 L (34.0-46.0) % Neutrophils # 8.4 H (1.3-7.7) k/uL Lymphocytes # 0.5 L (1.0-4.8) k/uL BUN 20 H (7-17) mg/dL Creatinine 1.29 H (0.52-1.04) mg/dL Glucose 110 H (74-99) mg/dL POC Glucose (mg/dL) 112 H (75-99) mg/dL Microbiology - Last 24 Hours (Table) 08/02/17 18:41 Blood Culture - Preliminary Blood No Growth after 96 hours 08/02/17 18:06 Blood Culture - Preliminary Blood No Growth after 96 hours Assessment and Plan (1) Small bowel obstruction Current Visit: Yes Status: Acute Code(s): K56.609 - UNSP INTESTNL OBST, UNSP TO PARTIAL VERSUS COMPLETE OBST SNOMED Code(s): 901724308 (2) New onset atrial fibrillation Current Visit: Yes Status: Acute Code(s): I48.91 - UNSPECIFIED ATRIAL FIBRILLATION SNOMED Code(s): 27880544 Plan: We'll slowly advance her diet. Order PT and OT to increase her activity. She is on antibiotics for her aspiration pneumonia. Progressing slowly.
[2017-08-07 11:40] LABS: Glucose,Whole Blood 124 mg/dL (75-99)
--- NOTE | 2017-08-07 12:06 | P.PN ---
Subjective Progress Note Date: 08/07/17 Principal diagnosis: Fever, shortness of breath This is an 82-year-old female that we saw in consultation. She has a history of breast and colon cancer as well as hypertension. She apparently lives at a [facility] assisted and is seen by a visiting physician by the name of Dr. Beth. She had weakness. She also had cough and shortness of breath. Not producing any phlegm. She had a temperature elevation of 101.2. She also was found have atrial fibrillation with rapid ventricular response with a heart rate about 1 20 bpm. She appears to be a little short of breath even at the current time. Chest x-ray initially shows some patchy infiltrates in the right midlung and right lower lobe potentially consistent with pneumonia. Again her symptoms could be consistent with heart failure and/or pneumonia. Anyway she is doing a bit better not a lot. Not a particularly good historian. On 08/01/2017 patient seen in follow-up on selective care unit. His any worsening dyspnea, lung sounds are positive for scattered rhonchi. She remains on 3 L per nasal cannula with O2 sat at 94%. Afebrile, hemodynamically stable. She still has NG tube in place for persistent abdominal distention. Abdominqal/pelvis CT from 07/31/2017 showed dilated small bowel consistent with distal mechanical small bowel obstruction. Chest x-ray from 08/01/2017 has been reviewed and showed chronic changes without evidence of any acute pulmonary disease. Surgery is planned and on laparotomy with release of small bowel obstruction at 1300 today. From pulmonary/critical care standpoint patient is stable to go to surgery today. On 08/02/2017 patient is seen , status post exploratory laparotomy with release of bowel obstruction, postop day 1. Patient appears to be lethargic, arousable to verbal stimuli, afebrile, hemodynamically stable, slightly tachycardic with a heart rate of 10-105 BPM. Is on 2 L per nasal cannula, with O2 sat at 91%. When necessary doses of Dilaudid for incisional pain. NG tube is in place to low intermittent suction with a total of 600 mL of liquid green output last 24 hours. Mid abdominal incision covered with surgical dressing. No bowel sounds auscultated, abdomen is soft, tender to palpation. Labs been reviewed, WBCs up to 13.1, hemoglobin is 12.8, serum sodium is up to 46, serum potassium is 3.3, carbon dioxide is 41, B1 is 33, creatinine is 2.5. Patient has been initiated on D5 0.45 normal saline and 80 mL per hour. Remains nothing by mouth. TPN will be started today, patient did receive a PICC line. Culture results have been reviewed and blood culture shows no growth since admission. On 08/03/2017 patient is seen again. She got transferred to the intensive care last night for concerns of decreased level of consciousness, fever, relative hypotension and tachycardia, and decreased respirations. Patient was suspected to have pain medication related hypotension, was given a dose of Narcan, with improvement of her level of consciousness, respirations, hypoxia, blood pressure. Chest x-ray was obtained in the evening of 2017 and showed pulmonary vascular congestion, pleural effusions, and basilar mild infiltrates. Patient's inspiratory effort was poor during the time of the chest x-ray. Patient did spike a temp of 102.1F prior to the transfer. New set of blood cultures and urine culture was collected and sent yesterday. Patient was given 1 L of 0.9 normal saline IV bolus, her maintenance IV fluid is D5 0.45 normal saline at 80 ML per hour, TPN was started and is currently running at 30 ML per hour, lipids are running at 21 ML per hour. No vasopressor support was necessary as the patient responded well to IV fluids and the Narcan. Microbiology has been reviewed, urine culture collected on 09/2017 is pending. Blood culture collected on 07/25/2017 shows no growth. This morning patient is much more awake, alert, responds to questions appropriately. She is alert, oriented 3. Appropriate, she remembered her surgeon this morning. Her lung sounds are clear to auscultation, no rales, no rhonchi, no wheezing. She denies any pain. She is on 3 L per nasal cannula with O2 sat 95%. She has not had any febrile episodes this morning. Continues on Zosyn. She still has NG tube in place, to low intermittent suction, bowel sounds are now present, hypoactive. Abdomen is soft, nontender. Surgical incision is clean dry and intact and covered with surgical dressing. She denies any pain. On 08/04/2017 patient seen again in the intensive care. She is much more awake , alert, responds appropriately to questions. Denies any acute distress. Lung sounds are positive for scattered rhonchi, especially over posterior lower lobes. Patient needs significant encouragement with incentive spirometer, is able to achieve 250-500 on the today. She is tolerating ice chips, bowel sounds are absent today. NG tube remains in place, to low intermittent suction , the output has increased since patient started taking and ice chips. Abdomen remains soft, nontender, mid abdominal incision is covered with a surgical dressing, clean dry and intact. No bowel movements yet. Not passing gas yet. She still has a construction safety manager at the bedside. Remains afebrile, hemodynamically stable, on 2 L per nasal cannula with O2 sat 97-100%. Chest x- ray today was reviewed, shows persistent pneumoperitoneum, cardiomegaly with central vascular congestion, and patchy bibasilar atelectasis and/or infiltrate. Lab work shows the VBC of 13.4, hemoglobin 10.6, serum sodium is within normal limits no and is down to 143, serum potassium is 2.8, renal profile is improving further, with B1 of 35, and creatinine of 1.6. Patient is making adequate amount of urine, nonoliguric. Denies any specific complaints. On 08/07/2017 patient seen in follow-up on surgical floor. He is awake, alert, responds appropriately. Complaining of some mild left lower quadrant abdominal pain, her abdomen is soft, mid abdominal incision is clean dry and intact covered with a dressing. [place] are intact. Abdominal binder is on. She has positive bowel sounds in all 4 quadrants. She is tolerating clear liquid diet. She has not had any stools yet. Lung sounds are positive for scattered rhonchi, does have a weak cough. Incentive spirometer effort is 500-750 ML today. Denies any nausea. Vital signs are stable, afebrile, on 2 L per nasal cannula with O2 sat at 99%. Objective - Vital Signs Vital signs: Vital Signs Temp 99.2 F 08/07/17 07:00 Pulse 92 08/07/17 09:39 Resp 18 08/07/17 07:00 BP 128/53 08/07/17 07:00 Pulse Ox 99 08/07/17 07:00 Intake & Output 08/06/17 08/07/17 08/07/17 18:59 06:59 18:59 Intake Total 2084.667 670 240 Output Total 920 700 Balance 1164.667 -30 240 Weight 65.04 kg Intake: IV 370 370 Dextrose 5%-0.45% NaCl 1, 160 160 000 ml @ 20 mls/hr IV . Q24H [facility] Rx#:[id number] Mvi, Adult No.4 with Vit 160 160 K 10 ml Trace (Conc-1Ml/ Dose) 1 ml In Amino Acid 5%-D25w+Lytes*E* 1,000 ml @ 20 mls/hr IV .Q24H [facility] Rx#:[id number] Piperacillin-Tazobactam 3 50 50 .375 gm In Dextrose/Water 1 50ml.bag @ 12.5 mls/hr IVPB Q8HR [facility] Rx#: [id number] Intake, IV Titration 994.667 Amount Mvi, Adult No.4 with Vit 994.667 K 10 ml Trace (Conc-1Ml/ Dose) 1 ml In Amino Acid 5%-D25w+Lytes*E* 1,000 ml @ 20 mls/hr IV .Q24H [facility] Rx#:[id number] Oral 720 300 240 Output: Urine 920 700 Uretheral ([place]) 300 200 Other: Voiding Method Indwelling Catheter Indwelling Catheter Indwelling Catheter - Exam GENERAL EXAM: Alert, in no apparent distress. HEAD: Normocephalic/atraumatic. EYES: Normal reaction of pupils, equal size. Conjunctiva pink, sclera white. NOSE: Clear with pink turbinates. NG tube has been removed. THROAT: No erythema or exudates. NECK: No masses, no JVD, no thyroid enlargement, no adenopathy. CHEST: No chest wall deformity. Symmetrical expansion. LUNGS: Equal air entry, scattered rhonchi auscultated over posterior bilateral lower lobes CVS: Regular rate and rhythm, normal S1 and S2, no gallops, no murmurs, no rubs ABDOMEN: Soft, tender to palpation, minimal abdominal surgical incision is clean dry and intact, covered with surgical dressing.. And some bowel sounds today EXTREMITIES: No clubbing, no edema, no cyanosis, 2+ pulses and upper and lower extremities. MUSCULOSKELETAL: Muscle strength and tone normal. SPINE: No scoliosis or deformity SKIN: No rashes CENTRAL NERVOUS SYSTEM: Somnolent, but easily arousable to verbal stimuli. No focal deficits, tone is normal in all 4 extremities. PSYCHIATRIC: Alert and oriented -1. Appropriate affect. Intact judgment and insight. - Labs CBC & Chem 7: 08/07/17 06:48 08/07/17 06:48 Labs: Abnormal Lab Results - Last 24 Hours (Table) 08/06/17 08/06/17 08/07/17 Range/Units 16:45 20:10 06:48 RBC (3.80-5.40) m/uL Hgb (11.4-16.0) gm/dL Hct (34.0-46.0) % Neutrophils # (1.3-7.7) k/uL Lymphocytes # (1.0-4.8) k/uL BUN 20 H (7-17) mg/dL Creatinine 1.29 H (0.52-1.04) mg/dL Glucose 110 H (74-99) mg/dL POC Glucose (mg/dL) 110 H 137 H (75-99) mg/dL 08/07/17 08/07/17 08/07/17 Range/Units 06:48 06:55 11:30 RBC 3.62 L (3.80-5.40) m/uL Hgb 10.6 L (11.4-16.0) gm/dL Hct 33.2 L (34.0-46.0) % Neutrophils # 8.4 H (1.3-7.7) k/uL Lymphocytes # 0.5 L (1.0-4.8) k/uL BUN (7-17) mg/dL Creatinine (0.52-1.04) mg/dL Glucose (74-99) mg/dL POC Glucose (mg/dL) 112 H 124 H (75-99) mg/dL Microbiology - Last 24 Hours (Table) 08/02/17 18:41 Blood Culture - Preliminary Blood No Growth after 96 hours 08/02/17 18:06 Blood Culture - Preliminary Blood No Growth after 96 hours Assessment and Plan Plan: Plan: Smoking: #1. Sepsis secondary to possible right lower lobe pneumonia, acute small bowel obstruction, and acute urinary tract infection. #2. Small bowel obstruction, status post exposure laparotomy with release of small bowel obstruction, postop day 6. #3. Acute hypoxic respiratory failure secondary to hypoventilation may have been related to sedation. Improved #4. Acute kidney failure secondary to sepsis and hypotension #5. COPD exacerbation #6. New-onset A. fib with RVR, present on admission #7. History of CVA/TIA #8. Hyperlipidemia #9. Hypertension #10. History of colon and breast CA, status post post-double mastectomy #11. 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 Encourage sitting up in the chair, physical therapy consult. Encourage incentive spirometry. Lab work has been reviewed, no evidence of leukocytosis, renal profile is improving, B1 is down to 20, and creatinine is down to 1.29. Patient is nonoliguric, still on clear liquid diet, tolerating it well. Continue TPN per surgery. No nausea, no vomiting. NG tube has been removed. No bowel movements yet. But bowel sounds are active in all 4 quadrants. Antibiotics per ID recommendations, will follow with patient on as-needed basis. I performed a history & physical examination of the patient and discussed their management with my nurse practitioner, Ronel Keenan. I reviewed the nurse practitioner's note and agree with the documented findings and plan of care. Lung sounds are positive for scattered rhonchi. The findings and the impression was discussed with the patient. I attest to the documentation by the nurse practitioner. Time with Patient: Less than 30
[2017-08-07 14:09] VITALS: BMI 21.8
[2017-08-07] MEDS: MAGNESIUM SULFATE-D5W PMX 1 GM in DEXTROSE/WATER 1 100ML.BAG IVPB SCH ×2 (15:21→16:42)
[2017-08-07] MEDS: DEXTROSE 5%-0.45% NACL 1,000 ML IV SCH ×2 (17:03→17:55)
[2017-08-07 17:27] LABS: Glucose,Whole Blood 121 mg/dL (75-99)
[2017-08-07] MEDS: FAT EMULSION 20% 250 ML in EMPTY BAG 1 BAG IV SCH (17:47)
[2017-08-07] MEDS: ATORVASTATIN 10 MG TAB PO SCH (19:52)
[2017-08-07 19:57] LABS: Glucose,Whole Blood 125 mg/dL (75-99)
--- NOTE | 2017-08-07 22:37 | PN ---
PROGRESS NOTE Patient is seen for followup for acute kidney injury. Currently she is lying in bed, comfortable. She is not in any acute distress. Her renal function has been improving. Creatinine is down to 1.29. The patient is not on any IV fluids. TPN has been turned down. On examination, blood pressure is 113/67, heart rate 73 per minute. Patient is afebrile. EXAMINATION OF THE HEART: S1, S2. EXAMINATION OF LUNGS: Bilateral breath sounds are heard. ABDOMEN: Soft, non-tender. Abdominal binder is present. Examination of lower extremities shows no significant edema. Labs show serum creatinine down to 1.29, sodium 137, potassium 4.1, hemoglobin 10.6 g/dL. ASSESSMENT: 1. Acute kidney injury, mainly prerenal, currently improved. 2. Hypokalemia secondary to gastrointestinal fluid losses, status post replacement. 3. Bowel obstruction, status post explorative laparotomy. 4. Possible chronic kidney disease; baseline not known at this time; possibly stage III. PLAN: Encourage oral intake as per Surgery. No nephrotoxic agents on board. MMODL / IJN: [id number] /
--- NOTE | 2017-08-07 22:52 | PN ---
PROGRESS NOTE DATE OF SERVICE: 08/07/2017 REASON FOR FOLLOWUP: Aspiration pneumonia. INTERVAL HISTORY: The patient is afebrile. She has been breathing comfortably. She denies having any chest pain. Did have some cough but not bringing up sputum. No nausea, vomiting. No abdominal pain. PHYSICAL EXAMINATION: Blood pressure 113/67 with a pulse of 73, temperature of 98.7. She is 95% on 2 L nasal cannula. General description is an elderly female lying in bed in no distress. RESPIRATORY SYSTEM: Unlabored breathing with decreased breath sounds at the base. No wheeze. HEART: S1, S2. Regular rate and rhythm. ABDOMEN: Soft. No tenderness. LABS: Hemoglobin is 10.6, white count 11.9 with a BUN of 20, creatinine 1.29. DIAGNOSTIC IMPRESSION AND PLAN: Patient with a postoperative fever in a patient who did have laparotomy for a small- bowel obstruction and a question of aspiration pneumonia. The patient currently is responding to Zosyn. Her white count has normalized. No further fever. Recommend keeping the patient on Zosyn for now and hopefully finish therapy with oral antibiotics. Continue with supportive care. MMODL / IJN: [id number] /
[2017-08-08 07:04] LABS: Glucose,Whole Blood 125 mg/dL (75-99)
[2017-08-08] MEDS: IPRATROPIUM-ALBUTEROL 3 ML NEB INHALATION SCH ×4 (07:19→20:38)
[2017-08-08] MEDS: MVI, ADULT NO.4 WITH VIT K 10 ML, TRACE (CONC-1ML/DOSE) 1 ML in AMINO ACID 5%-D25W+LYTE... IV SCH ×6 (07:28→08:05)
[2017-08-08] MEDS: PANTOPRAZOLE 40 MG/10 ML VIAL IV SCH (07:29)
[2017-08-08] MEDS: NYSTATIN 100,000 UNIT/ML SUSP 500,000 UNIT/5 ML CUP PO SCH ×4 (07:29→21:01)
[2017-08-08] MEDS: HEPARIN SODIUM,PORCINE 5,000 UNIT/ML 1 ML VIAL SQ SCH ×3 (07:29→23:08)
[2017-08-08] MEDS: DOCUSATE 100 MG CAP PO SCH ×2 (07:29→19:21)
[2017-08-08] MEDS: GABAPENTIN 300 MG CAP PO SCH ×2 (07:30→19:21)
[2017-08-08] MEDS: CALCIUM CARB-VIT D 500MG-200UN 1 EACH TAB PO SCH ×2 (07:30→19:21)
[2017-08-08] MEDS: PIPERACILLIN-TAZOBACTAM 3.375 GM in DEXTROSE/WATER 1 50ML.BAG IVPB SCH ×3 (07:31→23:08)
[2017-08-08] MEDS: ACETAMINOPHEN TAB 325 MG TAB PO SCH ×2 (07:32→19:20)
[2017-08-08 08:34] LABS: Magnesium 2.2 mg/dL (1.6-2.3); Phosphorus 2.8 mg/dL (2.5-4.5); Potassium 4.2 mmol/L (3.5-5.1)
--- NOTE | 2017-08-08 10:59 | PN ---
PROGRESS NOTE DATE OF SERVICE: 08/07/2017 This 82-year-old woman was admitted after right lower lobe pneumonia also had possibly sepsis, also. No chest pain. No palpitations. No fever. The patient had surgery. Patient improved significantly. PHYSICAL EXAM: Alert oriented x2. Pulse 87, blood pressure 106/61, respirations 16, temperature 97.4, pulse ox 92% room air. HEENT: Conjunctivae normal. NECK: No jugular venous distension. CARDIOVASCULAR SYSTEM: S1, S2. RESPIRATORY: Breath sounds diminished at the bases, a few scattered rhonchi. Abdomen is soft, nontender. LEGS: No edema, no swelling. NERVOUS SYSTEM: No focal deficits. LABS: WBC 9.8, hemoglobin is 10.6. ASSESSMENT: 1. Acute right lower lobe pneumonia, possibly gram-negative sepsis. 2. Small-bowel obstruction, status post exploratory laparotomy, lysis of adhesions. 3. Acute urinary tract infection. 4. Change in mental status, acute metabolic encephalopathy multifactorial. 5. Atrial fibrillation with fast ventricular rate. 6. Chronic obstructive pulmonary disease acute exacerbation. 7. Gastroesophageal reflux disease. 8. Hyperlipidemia. 9. History of schizophrenia. 10.History of cerebrovascular accident in the past. 11.Acute hypoxic respiratory failure, secondary to number #1. 12.Severe hypokalemia. 13.FULL CODE. RECOMMENDATION: Recommend to continue with the current management. Continue with the current medications and symptomatic treatment. As this time, I would recommend closely follow with Surgery. Further recommendations to follow. MMODL / IJN: [id number] /
[2017-08-08 11:30] LABS: Glucose,Whole Blood 114 mg/dL (75-99)
--- NOTE | 2017-08-08 13:18 | P.PN ---
Subjective Progress Note Date: 08/08/17 Principal diagnosis: S/P laparotomy with release of small bowel obstruction The patient is status post release of small bowel obstruction. She is tolerating clear liquids. She had a small bowel movement. Reports less coughing and shortness of breath. Objective - Vital Signs Vital signs: Vital Signs Temp 97.8 F 08/08/17 07:24 Pulse 80 08/08/17 12:15 Resp 18 08/08/17 08:17 BP 138/75 08/08/17 07:24 Pulse Ox 94 L 08/08/17 07:24 Intake & Output 08/07/17 08/08/17 08/08/17 18:59 06:59 18:59 Intake Total 1251 1676 290 Output Total 1600 1200 Balance -349 476 290 Weight 65.04 kg 98.5 kg Intake: IV 976 50 Dextrose 5%-0.45% NaCl 1, 320 000 ml @ 20 mls/hr IV . Q24H [facility] Rx#:[id number] Fat Emulsion 20% 250 ml 336 In Empty Bag 1 bag @ 21 mls/hr IV MoWeFr@1800 [facility] Rx#:[id number] Mvi, Adult No.4 with Vit 320 K 10 ml Trace (Conc-1Ml/ Dose) 1 ml In Amino Acid 5%-D25w+Lytes*E* 1,000 ml @ 20 mls/hr IV .Q24H [facility] Rx#:[id number] Piperacillin-Tazobactam 3 50 .375 gm In Dextrose/Water 1 50ml.bag @ 12.5 mls/hr IVPB Q8HR [facility] Rx#: [id number] Intake, IV Titration 1011 Amount Mvi, Adult No.4 with Vit 1011 K 10 ml Trace (Conc-1Ml/ Dose) 1 ml In Amino Acid 5%-D25w+Lytes*E* 1,000 ml @ 20 mls/hr IV .Q24H [facility] Rx#:[id number] Oral 240 240 Other 700 Output: Urine 1600 1200 Uretheral ([place]) 1200 Other: Voiding Method Indwelling Catheter Indwelling Catheter Indwelling Catheter # Bowel Movements 1 - Constitutional Constitutional Comment(s): More alert General appearance: Present: cooperative, no acute distress - Respiratory Respiratory: bilateral: diminished (At the bases but clearer) - Gastrointestinal General gastrointestinal: Present: normal bowel sounds, soft Localized gastrointestinal: surgical scar: diffuse (Incision is healing) - Labs CBC & Chem 7: 08/07/17 06:48 08/08/17 07:11 Labs: Abnormal Lab Results - Last 24 Hours (Table) 08/07/17 08/07/17 08/08/17 Range/Units 17:23 19:56 06:57 Sodium (137-145) mmol/L Creatinine (0.52-1.04) mg/dL Glucose (74-99) mg/dL POC Glucose (mg/dL) 121 H 125 H 125 H (75-99) mg/dL 08/08/17 08/08/17 Range/Units 07:11 11:28 Sodium 136 L (137-145) mmol/L Creatinine 1.22 H (0.52-1.04) mg/dL Glucose 119 H (74-99) mg/dL POC Glucose (mg/dL) 114 H (75-99) mg/dL Microbiology - Last 24 Hours (Table) 08/02/17 18:41 Blood Culture - Preliminary Blood No Growth after 120 hours 08/02/17 18:06 Blood Culture - Preliminary Blood No Growth after 120 hours Assessment and Plan (1) Small bowel obstruction Current Visit: Yes Status: Acute Code(s): K56.609 - UNSP INTESTNL OBST, UNSP TO PARTIAL VERSUS COMPLETE OBST SNOMED Code(s): 225043685 (2) New onset atrial fibrillation Current Visit: Yes Status: Acute Code(s): I48.91 - UNSPECIFIED ATRIAL FIBRILLATION SNOMED Code(s): 56138618 Plan: We will increase her diet. Encourage activity. Surgically stable. She is on antibiotics for her pulmonary issues. Continue TPN at low level until her oral intake improves.
[2017-08-08 15:02] VITALS: RESP 16
--- NOTE | 2017-08-08 15:11 | PN ---
PROGRESS NOTE DATE OF SERVICE: 08/08/2017 This is an 82-year-old woman who was admitted after bowel surgery, had right lower pneumonia, multiple other complications also. The patient improved significantly. No chest pain. No palpitations. ECF rehab is being planned. PHYSICAL EXAM: Alert and oriented x2. Pulse 86, blood pressure 130/75, respiration 18, temperature 97.2, pulse ox 94% on room air. HEENT: Conjunctivae normal. NECK: No jugular venous distension. RESPIRATORY: Breath sounds diminished at the bases, no rhonchi, no crackles. ABDOMEN: Soft, status post surgery. No cyst, no focal abnormalities. LABS: Sodium 130, potassium 4.2, creatinine 1.2. ASSESSMENT: 1. Acute right lower lobe pneumonia, possibly gram-negative and sepsis. 2. Small-bowel obstruction, status post exploratory laparotomy, lysis of adhesions. 3. Acute urinary tract infection. 4. Change in mental status acute metabolic encephalopathy multifactorial. 5. Atrial fibrillation with fast ventricular rate. 6. Chronic obstructive pulmonary disease acute exacerbation. 7. Gastroesophageal reflux disease. 8. Hyperlipidemia. 9. History of schizophrenia. 10.History of cerebrovascular accident in the past. 11.Acute hypoxic respiratory failure secondary to #1. 12.Severe hypokalemia. 13.FULL CODE. RECOMMENDATION: Recommend to continue with current monitoring and symptomatic treatment. Otherwise, at this time I would recommend continue with the current medication, continue symptomatic treatment. Continue with monitoring. Continue with bronchodilators and incentive spirometry. Follow closely with Surgery. PT/OT evaluation, possible ECF rehab. Further recommendations to follow. MMODL / IJN: [id number] /
[2017-08-08] MEDS: DEXTROSE 5%-0.45% NACL 1,000 ML IV SCH (15:19)
[2017-08-08 16:58] LABS: Glucose,Whole Blood 95 mg/dL (75-99)
[2017-08-08] MEDS: ATORVASTATIN 10 MG TAB PO SCH (19:21)
[2017-08-08 20:01] LABS: Glucose,Whole Blood 120 mg/dL (75-99)
[2017-08-08] MEDS: guaiFENesin-DM 100-10MG/5ML 10 ML CUP PO PRN (21:01)
--- NOTE | 2017-08-08 22:20 | CONS ---
CONSULTATION DATE OF SERVICE: 08/08/2017. PURPOSE OF CONSULTATION: Evaluate for mental status change. INTERVAL HISTORY: Patient has been doing fairly well. She is in recovery from bowel surgery. It is noted that I saw her prior to surgery, with my last contact being 07/25. It is noted that the patient has a diagnosis of schizophrenia and had been on Zyprexa 20 mg a day. Given the fact that she was having a lot of GI issues unrelated to her psychotropic medications and also that she was fairly stable from a psychiatric standpoint, I reduced her Zyprexa from 20 mg a day down to 10 mg a day. She seemed to do fairly well without problems. I note that currently she is on Zyprexa Zydis 20 mg q.h.s. p.r.n. She also has ordered p.r.n. Haldol and p.r.n. Ativan. It does not appear that she has been receiving any Zyprexa or other p.r.n. psychotropics. MENTAL STATUS: Patient was in her room lying down. She gave good eye contact. She was a little slowed in her responses. She answered questions with brief responses. Her thoughts were little disorganized. She did not say a lot. She seemed to be in a good mood. She smiled. She had a calm manner. She did not appear to be distressed. ASSESSMENT: I will continue the current diagnosis. At this point, it appears to be reasonable to continue her off Zyprexa. It would be a consideration that if she needs to have Zyprexa restarted for thought disorder, including hallucinations or delusional thoughts, that she would be best off starting on a lower dose, perhaps 10 mg at bedtime. Given that she is stable from a psychiatric standpoint and my understanding is that there would be placement at [facility], I will not continue with followup unless there is a re-consultation. MMODL / IJN: [id number] /
--- NOTE | 2017-08-08 22:23 | PN ---
PROGRESS NOTE DATE OF SERVICE: 08/08/2017 REASON FOR FOLLOWUP: Aspiration pneumonia. INTERVAL HISTORY: The patient is afebrile. She is breathing comfortably. She did have some cough, but not bringing up any sputum. No chest pain. No abdominal pain and did not have any diarrhea. EXAMINATION: Blood pressure 110/67 with a pulse of 91, temperature of 98.2. She is 98% on 2L nasal cannula. General description is an elderly female, lying in bed in no distress. RESPIRATORY SYSTEM: Unlabored breathing. Clear to auscultation anteriorly. HEART: S1, S2. Regular rate and rhythm. ABDOMEN: Soft. No tenderness. LABS: BUN of 17, creatinine is 1.22. Blood culture has been negative. No sputum was collected. DIAGNOSTIC IMPRESSION AND PLAN: Patient with a postoperative fever, confusion and a question of aspiration pneumonia currently being treated with Zosyn. The patient seemed to have shown overall clinical improvement. No more fever. Her white count normalized. She will continue Zosyn, transition to oral. Continue supportive care. MMODL / IJN: [id number] /
[2017-08-09 06:59] LABS: Glucose,Whole Blood 113 mg/dL (75-99)
[2017-08-09] MEDS: IPRATROPIUM-ALBUTEROL 3 ML NEB INHALATION SCH ×4 (08:18→20:45)
[2017-08-09] MEDS: ACETAMINOPHEN TAB 325 MG TAB PO SCH (08:50)
[2017-08-09] MEDS: NYSTATIN 100,000 UNIT/ML SUSP 500,000 UNIT/5 ML CUP PO SCH ×4 (08:51→21:12)
[2017-08-09] MEDS: HEPARIN SODIUM,PORCINE 5,000 UNIT/ML 1 ML VIAL SQ SCH ×2 (08:51→18:00)
[2017-08-09] MEDS: CALCIUM CARB-VIT D 500MG-200UN 1 EACH TAB PO SCH ×2 (08:51→21:13)
[2017-08-09] MEDS: PANTOPRAZOLE 40 MG/10 ML VIAL IV SCH (08:51)
[2017-08-09] MEDS: GABAPENTIN 300 MG CAP PO SCH ×2 (08:51→21:12)
[2017-08-09] MEDS: PIPERACILLIN-TAZOBACTAM 3.375 GM in DEXTROSE/WATER 1 50ML.BAG IVPB SCH ×2 (08:52→17:59)
[2017-08-09] MEDS: DOCUSATE 100 MG CAP PO SCH ×2 (08:52→21:12)
[2017-08-09 11:37] LABS: Glucose,Whole Blood 133 mg/dL (75-99)
[2017-08-09] MEDS: MVI, ADULT NO.4 WITH VIT K 10 ML, TRACE (CONC-1ML/DOSE) 1 ML in AMINO ACID 5%-D25W+LYTE... IV SCH ×3 (16:19)
--- NOTE | 2017-08-09 16:37 | P.PN ---
Subjective Progress Note Date: 08/09/17 Principal diagnosis: S/P laparotomy with release of small bowel obstruction The patient is doing well from a surgical standpoint. Oral intake is improving. Mentation is improving Objective - Vital Signs Vital signs: Vital Signs Temp 98.0 F 08/09/17 14:47 Pulse 95 08/09/17 14:47 Resp 16 08/09/17 14:47 BP 126/95 08/09/17 14:47 Pulse Ox 98 08/09/17 14:47 Intake & Output 08/08/17 08/09/17 08/09/17 18:59 06:59 18:59 Intake Total 290 788 50 Output Total 450 725 800 Balance -160 63 -750 Weight 96 kg Intake: IV 50 488 50 Dextrose 5%-0.45% NaCl 1, 160 000 ml @ 20 mls/hr IV . Q24H [facility] Rx#:[id number] Fat Emulsion 20% 250 ml 168 In Empty Bag 1 bag @ 21 mls/hr IV MoWeFr@1800 [facility] Rx#:[id number] Mvi, Adult No.4 with Vit 160 50 K 10 ml Trace (Conc-1Ml/ Dose) 1 ml In Amino Acid 5%-D25w+Lytes*E* 1,000 ml @ 20 mls/hr IV .Q24H [facility] Rx#:[id number] Piperacillin-Tazobactam 3 50 .375 gm In Dextrose/Water 1 50ml.bag @ 12.5 mls/hr IVPB Q8HR [facility] Rx#: [id number] Oral 240 300 Output: Urine 450 725 800 Uretheral ([place]) 450 725 800 Other: Voiding Method Indwelling Catheter Indwelling Catheter Indwelling Catheter # Bowel Movements 1 - Constitutional General appearance: Present: cooperative, no acute distress - Gastrointestinal General gastrointestinal: Present: normal bowel sounds, soft Localized gastrointestinal: surgical scar: diffuse (incision healing well) - Labs CBC & Chem 7: 08/07/17 06:48 08/08/17 07:11 Labs: Abnormal Lab Results - Last 24 Hours (Table) 08/08/17 08/09/17 08/09/17 Range/Units 19:54 06:55 11:26 POC Glucose (mg/dL) 120 H 113 H 133 H (75-99) mg/dL Microbiology - Last 24 Hours (Table) 08/02/17 18:41 Blood Culture - Final Blood No Growth after 144 hours 08/02/17 18:06 Blood Culture - Final Blood No Growth after 144 hours Assessment and Plan (1) Small bowel obstruction Current Visit: Yes Status: Acute Code(s): K56.609 - UNSP INTESTNL OBST, UNSP TO PARTIAL VERSUS COMPLETE OBST SNOMED Code(s): 026807956 (2) New onset atrial fibrillation Current Visit: Yes Status: Acute Code(s): I48.91 - UNSPECIFIED ATRIAL FIBRILLATION SNOMED Code(s): 51206165 Plan: Surgically stable for discharge to rehab. Follow up in the office in 1 weeks for staple removal
[2017-08-09] MEDS: DEXTROSE 5%-0.45% NACL 1,000 ML IV SCH (19:00)
[2017-08-09] MEDS: ATORVASTATIN 10 MG TAB PO SCH (21:12)
--- NOTE | 2017-08-09 22:18 | PN ---
PROGRESS NOTE DATE OF SERVICE: 08/09/2017 REASON FOR FOLLOWUP: Aspiration pneumonia. INTERVAL HISTORY: The patient is afebrile. She is breathing comfortably. Has been complaining of some pain in the left lower abdominal area, but no nausea, no vomiting. No chest pain, no cough, no diarrhea per the R.N. EXAMINATION: Blood pressure is 126/95 with a pulse of 95, temperature of 98. She is 98% on 2L nasal cannula. General description is an elderly female up in the chair in no distress. RESPIRATORY SYSTEM: Unlabored breathing with decreased breath sounds at the bases. HEART: S1, S2. Regular rate and rhythm. ABDOMEN: Soft. No tenderness. LABS: Hemoglobin is 10.6, white count of 9.9. Blood culture has been negative. Sputum was not collected. DIAGNOSTIC IMPRESSION AND PLAN: Patient with a small-bowel obstruction requiring laparotomy and release of obstruction with postop fever and admission to the ICU with concern for possible aspiration pneumonia. The patient did show overall improvement on Zosyn. That will be continued. Will finish therapy with a short course of oral Augmentin on discharge. Continue supportive care. MMODL / IJN: [id number] /
[2017-08-10] MEDS: HEPARIN SODIUM,PORCINE 5,000 UNIT/ML 1 ML VIAL SQ SCH ×2 (00:56→08:49)
[2017-08-10] MEDS: PIPERACILLIN-TAZOBACTAM 3.375 GM in DEXTROSE/WATER 1 50ML.BAG IVPB SCH ×2 (00:56→08:47)
[2017-08-10] MEDS: ACETAMINOPHEN TAB 325 MG TAB PO SCH ×2 (03:52→08:52)
[2017-08-10 06:11] VITALS: BP 147/75; TEMP 98.3
[2017-08-10 07:50] LABS: Calcium 9.3 mg/dL (8.4-10.2); Phosphorus 3.1 mg/dL (2.5-4.5); Potassium 4.5 mmol/L (3.5-5.1)
[2017-08-10] MEDS: IPRATROPIUM-ALBUTEROL 3 ML NEB INHALATION SCH ×2 (08:20→11:55)
[2017-08-10] MEDS: CALCIUM CARB-VIT D 500MG-200UN 1 EACH TAB PO SCH (08:49)
[2017-08-10] MEDS: GABAPENTIN 300 MG CAP PO SCH (08:49)
[2017-08-10] MEDS: NYSTATIN 100,000 UNIT/ML SUSP 500,000 UNIT/5 ML CUP PO SCH ×2 (08:49→13:18)
[2017-08-10] MEDS: DOCUSATE 100 MG CAP PO SCH (08:50)
[2017-08-10] MEDS: PANTOPRAZOLE 40 MG/10 ML VIAL IV SCH (08:50)
--- NOTE | 2017-08-10 09:08 | P.PN ---
Progress Note - Text Progress Note Date: 08/10/17 The patient is doing well. Tolerating a diet. Having BM's Abdomen is soft with well healing incision A: S/P release of small bowel obstruction P: Surgically stable for rehab
--- NOTE | 2017-08-10 09:11 | CDI ---
Last Revision, June 2017 Documentation Clarification Form Date: 08/10/2017 8:59:00 AM From: Lizbeth MedellinBallesterosDELISA, CCDS Admit Date: 07/25/2017 4:10:00 PM Patient Name: Sissy Tsai Visit Number: [id number] Discharge Date: ATTENTION: The Clinical Documentation Specialists (CDI) and [facility] Coding Staff appreciate your assistance in clarifying documentation. Please respond to the clarification below the line at the bottom and electronically sign. The CDI & [facility] Coding staff will review the response and follow-up if needed. Please note: Queries are made part of the Legal Health Record. If you have any questions, please contact the author of this message via ITS. Dr. Arias Seth: Per the 08/09 Infectious Disease progress note: "Patient with a small-bowel obstruction requiring laparotomy and release of obstruction with "postop fever" and admission to the ICU with concern for possible aspiration pneumonia. The patient did show overall improvement on Zosyn." Patients Admitting Diagnosis: Sepsis sec to possible RLL pneumonia, Atrial fibrillation controlled & COPD w/acute exacerbation. Developed SBO obstruction requiring surgery. Post-Operative Diagnosis: SBO Procedure performed: Exploratory laparotomy with release of SBO. History/Risk Factors: COPD, A Fib, Hx CVA, Hypertension, Hx Colon & breast CA, former smoker. Clinical Indicators: Postop Temp 102.1, HR 106, PO 89 2Lnc. Treatment: Transferred from telemetry postop to ICU. TPN, IV Tylenol, IV fluid bolus, IV Zosyn In order to accurately reflect this patients severity of illness, please clarify if the diagnosis of postoperative fever is: An expected post-procedural or post-surgical condition; Integral to the procedure; Inherent to the procedure; An unexpected post-procedural or post-surgical condition related to surgical care; Other, please specify Unable to determine Please continue to document in your progress notes and discharge summary in order to capture severity of illness and risk of mortality. Include clinical findings that support your diagnosis. _Post op Fever more likely secondary to aspiration pneumonia and not related to the surgery MTDD
--- NOTE | 2017-08-10 11:28 | P.DS ---
Providers Date of admission: 07/25/17 16:10 Attending physician: Lizzette Montero Consults: 08/02/17 17:30 Consult Physician Routine Consulting Provider: Hugo Ann Consult Reason/Comments: fevers, antibx. Do you want consulting provider notified?: Yes 08/02/17 22:22 Consult Physician Stat Consulting Provider: Celestine Peacock Consult Reason/Comments: ICU admission Do you want consulting provider notified?: Already Contacted 08/03/17 06:35 Consult Physician Routine Consulting Provider: Paula Lange Consult Reason/Comments: HERNESTO, Increased Creat, Do you want consulting provider notified?: Yes 07/27/17 14:33 Consult Physician Routine Consulting Provider: Carlos Enrique Kessler Consult Reason/Comments: pneumonia Do you want consulting provider notified?: Yes 07/28/17 11:48 Consult Physician Routine Consulting Provider: Heather Fleming Consult Reason/Comments: possible ileus, small bowel obstruction Do you want consulting provider notified?: Yes 07/30/17 02:01 Consult Physician Routine Consulting Provider: Dale Bright Consult Reason/Comments: schizophrenia/psychosis Do you want consulting provider notified?: Yes, Notify in am Primary care physician: [facility] Course: Final diagnosis !. Small bowel obstruction status post laparotomy with release of obstruction, lysis of adhesions 2 acute right lower lobe pneumonia, suspect aspiration with sepsis 3. Acute UTI 4. Change in mental status, acute metabolic encephalopathy, multifactorial, improved 5. A. fib with RVR, currently controlled ventricular rate 6. Gastroesophageal reflux disease 7. COPD, acute exacerbation 8. History of schizophrenia 9. Acute hypoxic respiratory failure secondary to #2 10. Severe hypokalemia, resolved. Hospital course this is an 82-year-old female admitted with small bowel obstruction, status post laparotomy with release of obstruction, pneumonia and multiple other medical issues. Evaluated and treated by surgery, infectious disease, psychiatry, pulmonary, nephrology. Maintained on IV antibiotics. Low fiber diet initiated as per surgery, tolerating well. Patient has been cleared for discharge by all consults. Patient is being discharged to [facility] subacute rehab today in a stable condition with guarded prognosis. Physical exam:VSS, alert and oriented 2 , no focal deficits.respiratory: Bilateral bases diminished, no rhonchi, no crackles, cardiovascular muffled S1 and S2, abdomen soft, status post surgery, positive bowel sounds. The impression and plan of care has been dictated as directed. : I performed a history and examination of this patient, discussed the same with the dictator. I agree with the dictator's note ,documented as a scribe. Any additional findings or plans will be noted. Time taken: 35 minutes Patient Condition at Discharge: Stable Plan - Discharge Summary Discharge Rx Participant: No New Discharge Prescriptions: New Nystatin 100,000 Unit/ml Susp [Mycostatin Oral Susp] 500,000 unit PO QID cup Ipratropium-Albuterol Nebulize [Duoneb 0.5 mg-3 mg/3 ml Soln] 3 ml INHALATION RT-QID ampul.neb traMADol HCl [Ultram] 25 mg PO TID PRN #20 tab PRN Reason: Severe Pain Moxifloxacin HCl [Avelox] 400 mg PO DAILY #7 tablet Continue Hydrocortisone Acetate [Anucort-Hc] 25 mg RECTAL Q12H PRN PRN Reason: Hemorrhoids Benzocaine/Menthol Lozeng [Cepacol lozenge] 1 lozenge MUCOUS MEM Q4HR PRN PRN Reason: Sore Throat Simvastatin [Zocor] 20 mg PO HS@2000 Omeprazole [PriLOSEC] 20 mg PO BID@0600,1999 OLANZapine [ZyPREXA Zydis] 20 mg PO HS@1999 guaiFENesin-DM 100-10MG/5ML [Robitussin DM] 5 ml PO QID PRN PRN Reason: Cough Carboxymethylcellulose Sodium [Refresh Tears] 1 drop BOTH EYES Q6H PRN PRN Reason: Dry Eye(S) Promethazine [Phenergan] 12.5 mg PO Q12H PRN PRN Reason: Nausea Polyethylene Glycol 3350 [Miralax] 17 gm PO DAILY PRN PRN Reason: Constipation Gabapentin [Neurontin] 300 mg PO BID@0800,1999 Docusate [Colace] 100 mg PO BID@08,1999 Acetaminophen [Tylenol] 650 mg PO BID Fluticasone/Salmeterol [Advair 250-50 Diskus] 1 puff INHALATION RT-BID@799, 1999 Calcium Carbonate/Vitamin D3 [Calcium 600-Vit D3 400 Tablet] 1 tab PO BID@ 0800,1999 Multivit-Min/FA/Lycopen/Lutein [Centrum Silver Tablet] 1 tab PO DAILY@0800 Fluticasone Nasal [place] [Flonase Nasal [place]] 1 spray EA NOSTRIL DAILY@0800 Loratadine [Claritin] 10 mg PO DAILY PRN PRN Reason: Allergy Symptoms Apixaban [Eliquis] 5 mg PO BID@799,1999 #0 Discontinued guaiFENesin [Mucinex] 600 mg PO BID@ traMADol HCL [Ultram] 50 mg PO TID PRN PRN Reason: Severe Pain Discharge Medication List Acetaminophen [Tylenol] 650 mg PO BID 07/25/17 [History] Benzocaine/Menthol Lozeng [Cepacol lozenge] 1 lozenge MUCOUS MEM Q4HR PRN [History] Calcium Carbonate/Vitamin D3 [Calcium 600-Vit D3 400 Tablet] 1 tab PO BID@799, 199907/25/17 [History] Carboxymethylcellulose Sodium [Refresh Tears] 1 drop BOTH EYES Q6H PRN 07/25/17 [History] Docusate [Colace] 100 mg PO BID@08,199907/25/17 [History] Fluticasone Nasal [place] [Flonase Nasal [place]] 1 spray EA NOSTRIL DAILY@08 [History] Fluticasone/Salmeterol [Advair 250-50 Diskus] 1 puff INHALATION RT-BID@799, 199907/25/17 [History] Gabapentin [Neurontin] 300 mg PO BID@799,199907/25/17 [History] Hydrocortisone Acetate [Anucort-Hc] 25 mg RECTAL Q12H PRN 07/25/17 [History] Loratadine [Claritin] 10 mg PO DAILY PRN 07/25/17 [History] Multivit-Min/FA/Lycopen/Lutein [Centrum Silver Tablet] 1 tab PO DAILY@0800 07/25 [History] OLANZapine [ZyPREXA Zydis] 20 mg PO HS@199907/25/17 [History] Omeprazole [PriLOSEC] 20 mg PO BID@599,199907/25/17 [History] Polyethylene Glycol 3350 [Miralax] 17 gm PO DAILY PRN 07/25/17 [History] Promethazine [Phenergan] 12.5 mg PO Q12H PRN 07/25/17 [History] Simvastatin [Zocor] 20 mg PO HS@199907/25/17 [History] guaiFENesin-DM 100-10MG/5ML [Robitussin DM] 5 ml PO QID PRN 07/25/17 [History] Apixaban [Eliquis] 5 mg PO BID@799,1999 #0 08/10/17 [Rx] Ipratropium-Albuterol Nebulize [Duoneb 0.5 mg-3 mg/3 ml Soln] 3 ml INHALATION RT -QID ampul.neb 08/10/17 [Rx] Moxifloxacin HCl [Avelox] 400 mg PO DAILY #7 tablet 08/10/17 [Rx] Nystatin 100,000 Unit/ml Susp [Mycostatin Oral Susp] 500,000 unit PO QID cup [Rx] traMADol HCl [Ultram] 25 mg PO TID PRN #20 tab 08/10/17 [Rx] Follow up Appointment(s)/Referral(s): [facility], [NON-STAFF] - Heather Fleming DO [Doctor of Osteopathic Medicine] - 1 Week Dillon Beth MD [Primary Care Provider] - 1 Week (after dc from [facility]) psychiatry, @ [facility] [Other] - 1 Week Eduardo Roland MD [REFERRING] - 3 Days (while at [facility]) Activity/Diet/Wound Care/Special Instructions: Antibx. as per ID May shower. Light dressing to bernadine when necessary. Activity as tolerated. Encourage oral intake. Bladder scan Q4H. PVR Low Fiber DIet cbc,bmp in 3 days
[2017-08-10 11:57] VITALS: PULSE 94
--- NOTE | 2017-08-10 14:49 | PN ---
PROGRESS NOTE DATE OF SERVICE: 08/10/2017 REASON FOR FOLLOWUP: Possible aspiration pneumonia. INTERVAL HISTORY: The patient is afebrile. She is breathing comfortably on room air. Denies having any chest pain. No cough. No abdominal pain. No nausea, vomiting or diarrhea. PHYSICAL EXAMINATION: Blood pressure 147/55 with a pulse of 97, temperature 98.3, she is 92% on room air. General description is an elderly female up in the chair in no distress. RESPIRATORY SYSTEM: Unlabored breathing. Some decreased breath sounds at the lung base, no wheeze. HEART: S1, S2, regular rate and rhythm. ABDOMEN: Soft, no tenderness. LABS: BUN of 14, creatinine 1.2. DIAGNOSTIC IMPRESSION AND PLAN: Patient with possible aspiration pneumonia. Overall improvement on Zosyn. Culture has been negative. She will be given a short course of oral Augmentin about 5 to 7 days to finish course of therapy. Continue supportive care. MMODL / IJN: [id number] /
--- NOTE | 2017-08-10 17:00 | P.PN ---
Subjective Progress Note Date: 08/09/17 PROGRESS NOTE being dictated for Dr. Montero. Interval history: This is a 82-year-old female admitted with ileus, small bowel obstruction, status post exploratory laparotomy with release of small bowel obstruction. Maintained on Zosyn.NPO.Receiving TPN via PICC line. Receiving Dilaudid IV push for pain. Lethargic, telemetry atrial fibrillation with heart rates ranging 100s to 120s. Deep suctioned thick green-brown sputum, not sent for culture. T-max 102.1 ,WBCs up to 13.1, hemoglobin 12.8. Preliminary blood cultures negative. Patient had transferred off the telemetry unit, developed worsening respiratory distress and requiring Ventimask. Less arousable. A team called, patient being transferred to ICU. Currently unable to obtain review of systems Active Medications Acetaminophen (Tylenol Tab) 650 mg PO BID [facility] Last Admin: 08/02/17 07:55 Dose: Not Given Albuterol/Ipratropium (Duoneb 0.5 Mg-3 Mg/3 Ml Soln) 3 ml INHALATION RT-QID [facility] Last Admin: 08/02/17 17:13 Dose: 3 ml Artificial Tears (Artificial Tear Drops) 1 drops BOTH EYES Q6H PRN PRN Reason: Dry Eye(s) Atorvastatin Calcium (Lipitor) 10 mg PO HS@1999 [facility] Last Admin: 08/01/17 20:50 Dose: Not Given Benzocaine/Menthol (Cepacol Lozenge) 1 each MUCOUS MEM Q4HR PRN PRN Reason: Sore Throat Last Admin: 07/27/17 10:23 Dose: 1 each Calcium Carbonate (Oscal 500+D) 1 each PO BID@ [facility] Last Admin: 08/02/17 07:55 Dose: Not Given Docusate Sodium (Colace) 100 mg PO BID@ [facility] Last Admin: 08/02/17 07:55 Dose: Not Given Gabapentin (Neurontin) 300 mg PO BID@ [facility] Last Admin: 08/02/17 07:55 Dose: Not Given Guaifenesin/Dextromethorphan (Robitussin Dm) 5 ml PO QID PRN PRN Reason: Cough Last Admin: 07/30/17 14:20 Dose: 5 ml Haloperidol Lactate (Haldol) 5 mg IM Q6HR PRN PRN Reason: Agitation or Acute Psychosis Last Admin: 07/30/17 02:00 Dose: 5 mg Heparin Sodium (Porcine) (Heparin) 5,000 unit SQ Q8HR [facility] Last Admin: 08/02/17 16:22 Dose: 5,000 unit Hydrocortisone Acetate (Anusol-Hc) 25 mg RECTAL Q12H PRN PRN Reason: Hemorrhoids Hydromorphone HCl (Dilaudid) 0.5 mg IVP Q3HR PRN PRN Reason: Moderate to Severe Pain Last Admin: 08/02/17 16:22 Dose: 0.5 mg Piperacillin/Tazobactam/ (Dextrose 3.375 gm/ IV Solution) 50 mls @ 12.5 mls/hr IVPB Q8HR [facility] Last Admin: 08/02/17 15:23 Dose: 12.5 mls/hr Dextrose/Sodium Chloride (Dextrose 5%-1/2ns Iv Soln) 1,000 mls @ 80 mls/hr IV .[id number] [facility] Last Admin: 08/02/17 15:24 Dose: 80 mls/hr Parenteral Vitamin Supplement 10 ml/ Chromium/Copper/Manganese/Seleni/Zn 1 ml/ Amino Ac/Electrol/Dextrose/Calcium 1,011 mls @ 30 mls/hr IV .Q24H [facility] Fat Emulsion Intravenous 250 (ml/ IV Solution) 250 mls @ 21 mls/hr IV MoWeFr@ 1800 [facility] Parenteral Vitamin Supplement 10 ml/ Chromium/Copper/Manganese/Seleni/Zn 1 ml/ Amino Ac/Electrol/Dextrose/Calcium 1,011 mls @ 40 mls/hr IV .Q24H [facility] Ketorolac Tromethamine (Toradol) 15 mg IVP Q6H [facility] Stop: 08/02/17 21:01 Last Admin: 08/02/17 15:23 Dose: 15 mg Loratadine (Claritin) 10 mg PO DAILY PRN PRN Reason: Allergy Symptoms Lorazepam (Ativan) 0.5 mg IV Q6HR PRN PRN Reason: Anxiety Last Admin: 07/31/17 03:51 Dose: 0.5 mg Lorazepam (Ativan) 1 mg IV Q6HR PRN PRN Reason: Agitation or Acute Anxiety Miscellaneous Information (Pneumonia Protocol Utilized) 1 each PO ONCE PRN PRN Reason: Per Protocol Miscellaneous Information (Potassium Per Protocol) 1 each MISCELLANE DAILY PRN ; Protocol PRN Reason: Per Protocol Multivitamins (Theragran) 1 each PO DAILY@0800 [facility] Last Admin: 08/02/17 07:55 Dose: Not Given Naloxone HCl (Narcan) 0.2 mg IV Q2M PRN PRN Reason: Opioid Reversal Nystatin (Mycostatin Oral Susp) 500,000 unit PO QID [facility] Last Admin: 08/02/17 14:49 Dose: Not Given Olanzapine (Zyprexa Zydis) 20 mg PO HS@1999 [facility] Last Admin: 08/01/17 20:51 Dose: Not Given Ondansetron HCl (Zofran) 4 mg IVP Q6HR PRN PRN Reason: Nausea And Vomiting Last Admin: 07/28/17 03:28 Dose: 4 mg Pantoprazole Sodium (Protonix) 40 mg IV DAILY [facility] Last Admin: 08/02/17 08:05 Dose: 40 mg Polyethylene Glycol (Miralax) 17 gm PO DAILY PRN PRN Reason: Constipation Last Admin: 07/27/17 20:56 Dose: 17 gm Promethazine HCl (Phenergan) 12.5 mg PO Q12H PRN PRN Reason: Nausea Last Admin: 07/26/17 06:23 Dose: 12.5 mg Tramadol HCl (Ultram) 50 mg PO TID PRN PRN Reason: Severe Pain 08/03/17 maintained on IV fluids of D5 and half, (status post IV fluid bolus), TPN with lipids, Zosyn. Recultured with cultures pending. More alert this morning, states pain controlled. Today O2 sats in the mid 90s on 3 L nasal cannula. afebrile. Active Medications Acetaminophen (Tylenol Tab) 650 mg PO BID [facility] Last Admin: 08/04/17 08:33 Dose: 650 mg Albuterol/Ipratropium (Duoneb 0.5 Mg-3 Mg/3 Ml Soln) 3 ml INHALATION RT-QID [facility] Last Admin: 08/04/17 15:21 Dose: 3 ml Artificial Tears (Artificial Tear Drops) 1 drops BOTH EYES Q6H PRN PRN Reason: Dry Eye(s) Atorvastatin Calcium (Lipitor) 10 mg PO HS@1999 [facility] Last Admin: 08/03/17 20:00 Dose: 10 mg Benzocaine/Menthol (Cepacol Lozenge) 1 each MUCOUS MEM Q4HR PRN PRN Reason: Sore Throat Last Admin: 07/27/17 10:23 Dose: 1 each Calcium Carbonate (Oscal 500+D) 1 each PO BID@ [facility] Last Admin: 08/04/17 08:33 Dose: 1 each Docusate Sodium (Colace) 100 mg PO BID@ [facility] Last Admin: 08/04/17 09:06 Dose: Not Given Gabapentin (Neurontin) 300 mg PO BID@ [facility] Last Admin: 08/04/17 08:33 Dose: 300 mg Guaifenesin/Dextromethorphan (Robitussin Dm) 5 ml PO QID PRN PRN Reason: Cough Last Admin: 07/30/17 14:20 Dose: 5 ml Haloperidol Lactate (Haldol) 5 mg IM Q6HR PRN PRN Reason: Agitation or Acute Psychosis Last Admin: 07/30/17 02:00 Dose: 5 mg Heparin Sodium (Porcine) (Heparin) 5,000 unit SQ Q8HR [facility] Last Admin: 08/04/17 17:14 Dose: 5,000 unit Hydrocortisone Acetate (Anusol-Hc) 25 mg RECTAL Q12H PRN PRN Reason: Hemorrhoids Hydromorphone HCl (Dilaudid) 0.5 mg IVP Q3HR PRN PRN Reason: Moderate to Severe Pain Piperacillin/Tazobactam/ (Dextrose 3.375 gm/ IV Solution) 50 mls @ 12.5 mls/hr IVPB Q8HR [facility] Last Admin: 08/04/17 17:14 Dose: 12.5 mls/hr Dextrose/Sodium Chloride (Dextrose 5%-1/2ns Iv Soln) 1,000 mls @ 20 mls/hr IV .Q24H [facility] Last Admin: 08/04/17 17:18 Dose: 20 mls/hr Fat Emulsion Intravenous 250 (ml/ IV Solution) 250 mls @ 21 mls/hr IV MoWeFr@ 1800 [facility] Last Admin: 08/02/17 22:34 Dose: 21 mls/hr Parenteral Vitamin Supplement 10 ml/ Chromium/Copper/Manganese/Seleni/Zn 1 ml/ Amino Ac/Electrol/Dextrose/Calcium 1,011 mls @ 40 mls/hr IV .Q24H [facility] Last Admin: 08/04/17 08:14 Dose: 40 mls/hr Loratadine (Claritin) 10 mg PO DAILY PRN PRN Reason: Allergy Symptoms Lorazepam (Ativan) 0.5 mg IV Q6HR PRN PRN Reason: Anxiety Last Admin: 07/31/17 03:51 Dose: 0.5 mg Lorazepam (Ativan) 1 mg IV Q6HR PRN PRN Reason: Agitation or Acute Anxiety Miscellaneous Information (Pneumonia Protocol Utilized) 1 each PO ONCE PRN PRN Reason: Per Protocol Miscellaneous Information (Potassium Per Protocol) 1 each MISCELLANE DAILY PRN ; Protocol PRN Reason: Per Protocol Naloxone HCl (Narcan) 0.2 mg IV Q2M PRN PRN Reason: Opioid Reversal Last Admin: 08/02/17 18:18 Dose: 0.2 mg Nystatin (Mycostatin Oral Susp) 500,000 unit PO QID [facility] Last Admin: 08/04/17 12:27 Dose: 500,000 unit Olanzapine (Zyprexa Zydis) 20 mg PO HS@2000 [facility] Last Admin: 08/03/17 20:00 Dose: 20 mg Ondansetron HCl (Zofran) 4 mg IVP Q6HR PRN PRN Reason: Nausea And Vomiting Last Admin: 07/28/17 03:28 Dose: 4 mg Pantoprazole Sodium (Protonix) 40 mg IV DAILY [facility] Last Admin: 08/04/17 08:34 Dose: 40 mg Polyethylene Glycol (Miralax) 17 gm PO DAILY PRN PRN Reason: Constipation Last Admin: 07/27/17 20:56 Dose: 17 gm Promethazine HCl (Phenergan) 12.5 mg PO Q12H PRN PRN Reason: Nausea Last Admin: 07/26/17 06:23 Dose: 12.5 mg Tramadol HCl (Ultram) 50 mg PO TID PRN PRN Reason: Severe Pain 08/04/17 excellence coach at bedside tolerating ice chips, NG tube present. No flatus, no bowel movement. Breathing improving, oxygen titrated down to 2 L, maintaining O2 sats of high 90s to 100%, IS up to 500. Chest x-ray reporting persistent pneumoperitoneum, cardiomegaly, central vascular congestion and patchy bibasilar atelectasis/infiltrate. Renal function improving. Potassium 2.8, currently being replaced. States pain controlled. Afebrile, urine culture negative, preliminary blood cultures negative Review of systems: CONSTITUTIONAL: No fever, no fatigue. HEENT: No recent visual problems or hearing problems. Denied any sore throat. CARDIOVASCULAR: No chest pain, no palpitations, no syncope. PULMONARY: No shortness of breath, no cough, no hemoptysis. GASTROINTESTINAL: No diarrhea, no nausea, no vomiting, hypoactive bowel sounds. Status post surgery, pain controlled NEUROLOGICAL: No headaches, no weakness, no numbness. HEMATOLOGICAL: Denies any bleeding or petechiae. GENITOURINARY: Denies any burning micturition, frequency, or urgency. MUSCULOSKELETAL/RHEUMATOLOGICAL: Denies any joint pain, swelling, or any muscle pain. ENDOCRINE: Denies any polyuria or polydipsia. PSYCHIATRIC: No anxiety, no depression The rest of the 14 point review of systems is negative Active Medications Acetaminophen (Tylenol Tab) 650 mg PO BID [facility] Last Admin: 08/04/17 08:33 Dose: 650 mg Albuterol/Ipratropium (Duoneb 0.5 Mg-3 Mg/3 Ml Soln) 3 ml INHALATION RT-QID [facility] Last Admin: 08/04/17 15:21 Dose: 3 ml Artificial Tears (Artificial Tear Drops) 1 drops BOTH EYES Q6H PRN PRN Reason: Dry Eye(s) Atorvastatin Calcium (Lipitor) 10 mg PO HS@1999 [facility] Last Admin: 08/03/17 20:00 Dose: 10 mg Benzocaine/Menthol (Cepacol Lozenge) 1 each MUCOUS MEM Q4HR PRN PRN Reason: Sore Throat Last Admin: 07/27/17 10:23 Dose: 1 each Calcium Carbonate (Oscal 500+D) 1 each PO BID@ [facility] Last Admin: 08/04/17 08:33 Dose: 1 each Docusate Sodium (Colace) 100 mg PO BID@ [facility] Last Admin: 08/04/17 09:06 Dose: Not Given Gabapentin (Neurontin) 300 mg PO BID@ [facility] Last Admin: 08/04/17 08:33 Dose: 300 mg Guaifenesin/Dextromethorphan (Robitussin Dm) 5 ml PO QID PRN PRN Reason: Cough Last Admin: 07/30/17 14:20 Dose: 5 ml Haloperidol Lactate (Haldol) 5 mg IM Q6HR PRN PRN Reason: Agitation or Acute Psychosis Last Admin: 07/30/17 02:00 Dose: 5 mg Heparin Sodium (Porcine) (Heparin) 5,000 unit SQ Q8HR [facility] Last Admin: 08/04/17 17:14 Dose: 5,000 unit Hydrocortisone Acetate (Anusol-Hc) 25 mg RECTAL Q12H PRN PRN Reason: Hemorrhoids Hydromorphone HCl (Dilaudid) 0.5 mg IVP Q3HR PRN PRN Reason: Moderate to Severe Pain Piperacillin/Tazobactam/ (Dextrose 3.375 gm/ IV Solution) 50 mls @ 12.5 mls/hr IVPB Q8HR [facility] Last Admin: 08/04/17 17:14 Dose: 12.5 mls/hr Dextrose/Sodium Chloride (Dextrose 5%-1/2ns Iv Soln) 1,000 mls @ 20 mls/hr IV .Q24H [facility] Last Admin: 08/04/17 17:18 Dose: 20 mls/hr Fat Emulsion Intravenous 250 (ml/ IV Solution) 250 mls @ 21 mls/hr IV MoWeFr@ 1800 [facility] Last Admin: 08/02/17 22:34 Dose: 21 mls/hr Parenteral Vitamin Supplement 10 ml/ Chromium/Copper/Manganese/Seleni/Zn 1 ml/ Amino Ac/Electrol/Dextrose/Calcium 1,011 mls @ 40 mls/hr IV .Q24H [facility] Last Admin: 08/04/17 08:14 Dose: 40 mls/hr Loratadine (Claritin) 10 mg PO DAILY PRN PRN Reason: Allergy Symptoms Lorazepam (Ativan) 0.5 mg IV Q6HR PRN PRN Reason: Anxiety Last Admin: 07/31/17 03:51 Dose: 0.5 mg Lorazepam (Ativan) 1 mg IV Q6HR PRN PRN Reason: Agitation or Acute Anxiety Miscellaneous Information (Pneumonia Protocol Utilized) 1 each PO ONCE PRN PRN Reason: Per Protocol Miscellaneous Information (Potassium Per Protocol) 1 each MISCELLANE DAILY PRN ; Protocol PRN Reason: Per Protocol Naloxone HCl (Narcan) 0.2 mg IV Q2M PRN PRN Reason: Opioid Reversal Last Admin: 08/02/17 18:18 Dose: 0.2 mg Nystatin (Mycostatin Oral Susp) 500,000 unit PO QID [facility] Last Admin: 08/04/17 12:27 Dose: 500,000 unit Olanzapine (Zyprexa Zydis) 20 mg PO HS@2000 [facility] Last Admin: 08/03/17 20:00 Dose: 20 mg Ondansetron HCl (Zofran) 4 mg IVP Q6HR PRN PRN Reason: Nausea And Vomiting Last Admin: 07/28/17 03:28 Dose: 4 mg Pantoprazole Sodium (Protonix) 40 mg IV DAILY [facility] Last Admin: 08/04/17 08:34 Dose: 40 mg Polyethylene Glycol (Miralax) 17 gm PO DAILY PRN PRN Reason: Constipation Last Admin: 07/27/17 20:56 Dose: 17 gm Promethazine HCl (Phenergan) 12.5 mg PO Q12H PRN PRN Reason: Nausea Last Admin: 07/26/17 06:23 Dose: 12.5 mg Tramadol HCl (Ultram) 50 mg PO TID PRN PRN Reason: Severe Pain 08/09/17. no overnight events.sitting up in chair, afebrile.preliminary blood cultures negative, sputum not collected. Hemoglobin 10.6, WBC 9.9. Maintained on IV antibiotics as per infectious disease. TPN discontinued and diet initiated as per surgery. positive bowel movement. Telemetry atrial fibrillation with heart rates in the low 100s.on person assist.denies chest pain , palpitations or shortness of breath. Objective - Vital Signs Vital signs: Vital Signs Temp 98.0 F 08/09/17 14:47 Pulse 70 08/09/17 17:03 Resp 16 08/09/17 14:47 BP 126/95 08/09/17 14:47 Pulse Ox 98 08/09/17 16:46 Intake & Output 08/09/17 08/09/17 08/10/17 06:59 18:59 06:59 Intake Total 788 50 Output Total 725 800 Balance 63 -750 Weight 96 kg Intake: IV 488 50 Dextrose 5%-0.45% NaCl 1, 160 000 ml @ 20 mls/hr IV . Q24H [facility] Rx#:[id number] Fat Emulsion 20% 250 ml 168 In Empty Bag 1 bag @ 21 mls/hr IV MoWeFr@1800 [facility] Rx#:[id number] Mvi, Adult No.4 with Vit 160 50 K 10 ml Trace (Conc-1Ml/ Dose) 1 ml In Amino Acid 5%-D25w+Lytes*E* 1,000 ml @ 20 mls/hr IV .Q24H [facility] Rx#:[id number] Oral 300 Output: Urine 725 800 Uretheral ([place]) 725 800 Other: Voiding Method Indwelling Catheter Indwelling Catheter # Bowel Movements 1 - Exam GENERAL: Sitting up in bed, alert and oriented x2, no acute distress HEENT: Pupils are round and equally reacting to light. EOMI. No scleral icterus. No conjunctival pallor. Normocephalic, atraumatic. CARDIOVASCULAR: S1 and S2 present, No murmurs, rubs, or gallops. PULMONARY: Respiratory effort increased ,Scattered rhonchi throughout, no wheezes, no crackles, no wheezing ABDOMEN: Soft, status post surgery , bowel sounds auscultated MUSCULOSKELETAL: No joint swelling or deformity. EXTREMITIES: No cyanosis, clubbing, or pedal edema. NEUROLOGICAL: Gross neurological examination did not reveal any focal deficits. SKIN: No rashes. Microbiology 08/02/17 18:41 Blood Blood Culture - Final No Growth after 144 hours 08/02/17 18:06 Blood Blood Culture - Final No Growth after 144 hours 08/02/17 21:45 Urine,Catheterized Urine Culture - Final 07/25/17 13:24 Blood Blood Culture - Final No Growth after 144 hours - Labs CBC & Chem 7: 08/07/17 06:48 08/10/17 06:46 Labs: Abnormal Lab Results - Last 24 Hours (Table) 08/08/17 08/09/17 08/09/17 Range/Units 19:54 06:55 11:26 POC Glucose (mg/dL) 120 H 113 H 133 H (75-99) mg/dL Microbiology - Last 24 Hours (Table) 08/02/17 18:41 Blood Culture - Final Blood No Growth after 144 hours 08/02/17 18:06 Blood Culture - Final Blood No Growth after 144 hours Assessment and Plan Assessment: !. Small bowel obstruction status post laparotomy with release of obstruction, lysis of adhesions 2 acute right lower lobe pneumonia, suspect aspiration with sepsis 3. Acute UTI 4. Change in mental status, acute metabolic encephalopathy, multifactorial, improved 5. A. fib with RVR, currently controlled ventricular rate 6. Gastroesophageal reflux disease 7. COPD, acute exacerbation 8. History of schizophrenia 9. Acute hypoxic respiratory failure secondary to #2 10. Severe hypokalemia, resolved. PLAN: Continue on current medication regime , antibiotics ,monitoring and symptomatic treatment. antibiotics as per Infectious disease. Aggressive pulmonary toileting with incentive spirometer reinforced. PT/OT. Diet advanced as per surgery. Discharge planning in progress for tomorrow to [facility]. The impression and plan of care has been dictated as directed. : I performed a history and examination of this patient, discussed the same with the dictator. I agree with the dictator's note ,documented as a scribe. Any additional findings or plans will be noted.
== END 2017-08-10 14:20 | DRG 853 ==
LOC: EC 12:57 → 6SEL 16:10 → 3SUR 08-02 16:58 → 6ICU 08-02 20:19 → 3SUR 08-04 16:40
PROVIDERS: ADMIT Internal Medicine; ATTEND Internal Medicine
PROC: 0D9670Z Drainage of Stomach with Drainage Device, Via Natural or Artificial Opening (ICD-10-PCS; 2017-07-28)
PROC: 0DN80ZZ Release Small Intestine, Open Approach (ICD-10-PCS; principal; 2017-08-01 10:45)
PROC: 02HV33Z Insertion of Infusion Device into Superior Vena Cava, Percutaneous Approach (ICD-10-PCS; 2017-08-02 10:20)
PROC: 3E0336Z Introduction of Nutritional Substance into Peripheral Vein, Percutaneous Approach (ICD-10-PCS; 2017-08-02 10:20)
DX: A41.9 Sepsis, unspecified organism (principal); G93.41 Metabolic encephalopathy; J69.0 Pneumonitis due to inhalation of food and vomit; J96.01 Acute respiratory failure with hypoxia; N17.0 Acute kidney failure with tubular necrosis; K56.50 Intestinal adhesions [bands], unspecified as to partial versus complete obstruction; J90 Pleural effusion, not elsewhere classified; E87.3 Alkalosis; J44.1 Chronic obstructive pulmonary disease with (acute) exacerbation; J98.11 Atelectasis; M62.82 Rhabdomyolysis; N39.0 Urinary tract infection, site not specified; E87.1 Hypo-osmolality and hyponatremia; E86.0 Dehydration; I48.91 Unspecified atrial fibrillation; F20.9 Schizophrenia, unspecified; T50.995A Adverse effect of other drugs, medicaments and biological substances, initial encounter; E78.5 Hyperlipidemia, unspecified; E87.6 Hypokalemia; F17.201 Nicotine dependence, unspecified, in remission; F41.9 Anxiety disorder, unspecified; I10 Essential (primary) hypertension; K21.9 Gastro-esophageal reflux disease without esophagitis; R65.20 Severe sepsis without septic shock; I95.9 Hypotension, unspecified; Z79.899 Other long term (current) drug therapy; Z79.01 Long term (current) use of anticoagulants; Z85.038 Personal history of other malignant neoplasm of large intestine; Z85.3 Personal history of malignant neoplasm of breast; Z86.73 Personal history of transient ischemic attack (TIA), and cerebral infarction without residual deficits; Y92.239 Unspecified place in hospital as the place of occurrence of the external cause
CPT/HCPCS: 36415; 36569; 71010; 71020; 71045; 74000; 74020; 74176; 76937; 77001; 80048; 80053; 81001; 82150; 82272; 82330; 82378; 82550; 82553; 83605; 83690; 83735; 83880; 84100; 84132; 84478; 85025; 85027; 85610; 85730; 87040; 87086; 87502; 93005; 93306; 94640; 94760; 96361; 96374; 99285

== ENCOUNTER 2018-09-24 18:03 | Inpatient (IN) | payer BC, MEDICARE ==
[2018-09-24] MEDS ORDERED: SODIUM CHLORIDE 0.9% 1,000 ML IV STA (18:26)
[2018-09-24] MEDS ORDERED: IPRATROPIUM 0.5 MG/2.5 ML NEBU INHALATION STA (18:26)
[2018-09-24] MEDS ORDERED: methylPREDNISolone SOD SUCCI 125 MG/2 ML VIAL IV STA (18:26)
[2018-09-24] MEDS ORDERED: ALBUTEROL NEBULIZED 2.5 MG/3 ML INHALATION STA (18:26)
[2018-09-24] MEDS ORDERED: DILTIAZEM DRIP BOLUS FROM BAG 1 MG SOLN IV ONE (18:41)
[2018-09-24] MEDS ORDERED: LORazepam 2 MG/ML INJ IV STA (18:42)
--- NOTE | 2018-09-24 19:08 | ED ---
SOB HPI - General Chief Complaint: Shortness of Breath Stated Complaint: SOB Time Seen by Provider: 09/24/18 18:09 Source: patient, EMS Mode of arrival: EMS Limitations: no limitations - History of Present Illness Initial Comments: 83-year-old female patient presents to the emergency department today for evaluation of shortness of breath. Patient is quite anxious and it is difficult getting information from her. States that she has been started to feel short of breath couple of hours ago. Patient states symptoms started suddenly. States she has been coughing. She states she is coughing up sputum. She denies any fevers or chills. She denies any chest pain. Denies any nausea or vomiting. Denies abdominal pain. Patient denies any recent rash, diarrhea, constipation, back pain, numbness, tingling, dizziness, weakness, hematuria, dysuria, urinary urgency, urinary frequency, headache, visual changes , or any other complaints. - Related Data Home Medications Medication Instructions Recorded Confirmed Acetaminophen [Tylenol] 650 mg PO BID@0800,199907/25/17 09/24/18 Calcium Carbonate/Vitamin D3 1 tab PO BID@08,199907/25/17 09/24/18 [Calcium 600-Vit D3 400 Tablet] Docusate [Colace] 100 mg PO BID@08,199907/25/17 09/24/18 Fluticasone Nasal [place] [Flonase 1 spray EA NOSTRIL DAILY@0807/25/17 09/24/18 Nasal [place]] Fluticasone/Salmeterol [Advair 1 puff INHALATION RT-BID@08,199907/25/1709/24 250-50 Diskus] Gabapentin [Neurontin] 300 mg PO BID@080007/25/17 09/24/18 Loratadine [Claritin] 10 mg PO DAILY@0800 07/25/17 09/24/18 Multivit-Min/FA/Lycopen/Lutein 1 tab PO DAILY@0800 07/25/17 09/24/18 [Centrum Silver Tablet] Omeprazole [PriLOSEC] 20 mg PO BID@0600,199907/25/17 09/24/18 Polyethylene Glycol 3350 [Miralax] 17 gm PO DAILY@0800 07/25/17 09/24/18 Promethazine [Phenergan] 12.5 mg PO Q12H PRN 07/25/17 09/24/18 Atorvastatin Calcium [Lipitor] 20 mg PO HS@199909/24/18 09/24/18 Benzonatate [Tessalon Perles] 100 mg PO TID PRN 09/24/18 09/24/18 Bisacodyl [Dulcolax] 10 mg RECTAL DAILY PRN 09/24/18 09/24/18 Budesonide [Pulmicort] 0.5 mg INHALATION RT-QID 09/24/18 09/24/18 Cyanocobalamin (Vitamin B-12) 1,000 mcg PO DAILY 09/24/18 09/24/18 [Vitamin B-12] Dexamethasone 6 mg PO DAILY 09/24/18 09/24/18 Diphenox-Atrop 2.5-0.025 mg 1 tab PO Q4H PRN 09/24/18 09/24/18 [Lomotil] Ferrous Gluconate 324 mg PO DAILY@0800 09/24/18 09/24/18 Furosemide [Lasix] 20 mg PO DAILY@0800 09/24/18 09/24/18 Guaifenesin/Dextromethorphan 5 ml PO QID PRN 09/24/18 09/24/18 [guaiFENesin DM] Hydrocortisone Acetate [Anucort-Hc] 25 mg RECTAL Q12H PRN 09/24/18 09/24/18 OLANZapine [OLANZapine Odt] 20 mg PO HS@199909/24/18 09/24/18 guaiFENesin [Mucinex] 600 mg PO BID@799,199909/24/18 09/24/18 traMADol HCl [Ultram] 50 mg PO TID PRN 09/24/18 09/24/18 Previous Rx's Medication Instructions Recorded Apixaban [Eliquis] 5 mg PO BID@0800,1999 #0 08/10/17 Ipratropium-Albuterol Nebulize 3 ml INHALATION RT-QID ampul.neb 08/10/17 [Duoneb 0.5 mg-3 mg/3 ml Soln] Allergies Allergy/AdvReac Type Severity Reaction Status Date / Time No Known Allergies Allergy Verified 09/24/18 18:10 Review of Systems ROS Statement: Those systems with pertinent positive or pertinent negative responses have been documented in the HPI. ROS Other: All systems not noted in ROS Statement are negative. Past Medical History Past Medical History: Cancer, COPD, CVA/TIA, Hyperlipidemia, Hypertension Additional Past Medical History / Comment(s): colon & breast CA Last Myocardial Infarction Date:: unk History of Any Multi-Drug Resistant Organisms: None Reported Past Surgical History: Breast Surgery Additional Past Surgical History / Comment(s): double mastectomy Past Anesthesia/Blood Transfusion Reactions: No Reported Reaction Past Psychological History: Schizophrenia Smoking Status: Former smoker Past Alcohol Use History: None Reported Past Drug Use History: None Reported - Past Family History Mother Additional Family Medical History / Comment(s): "back problems' Father History Unknown: Yes General Exam Limitations: no limitations General appearance: alert, in no apparent distress, other (Social well-developed , well-nourished elderly female patient in mild distress. Vital signs upon presentation are temperature 99.9F oral, pulse 1:15, respirations 28, blood pressure 161/139, pulse ox 91% on room air) Eye exam: Present: normal appearance, PERRL, EOMI. Absent: scleral icterus, conjunctival injection, periorbital swelling ENT exam: Present: normal exam, normal oropharynx, mucous membranes moist Respiratory exam: Present: wheezes (Bilateral expiratory wheezing). Absent: normal lung sounds bilaterally, respiratory distress, rales, rhonchi, stridor Cardiovascular Exam: Present: tachycardia, irregular rhythm, normal heart sounds. Absent: systolic murmur, diastolic murmur, rubs, gallop, clicks GI/Abdominal exam: Present: soft, normal bowel sounds. Absent: distended, tenderness, guarding, rebound, rigid Neurological exam: Present: alert, oriented X3, CN II-XII intact Psychiatric exam: Present: normal affect, normal mood Skin exam: Present: warm, dry, intact, normal color. Absent: rash Course Vital Signs 09/24/18 09/24/18 09/24/18 18:14 19:05 19:25 Temperature 98.9 F Pulse Rate 115 H 118 H 118 H Respiratory 28 H Rate Blood Pressure 161/139 O2 Sat by Pulse 91 L Oximetry 09/24/18 09/24/18 20:00 21:00 Temperature Pulse Rate 111 H 112 H Respiratory 20 22 Rate Blood Pressure 116/69 134/59 O2 Sat by Pulse 97 96 Oximetry Medical Decision Making - Medical Decision Making 83-year-old female patient presented to the emergency department today for evaluation of shortness of breath. Upon arrival patient did have elevated temperature 99.9F. She did appear to be quite dyspneic with tachypnea and accessory muscle use. She did have expiratory wheezing noted. Labs reviewed and did reveal elevated white blood cell count to 18.0. BNP is elevated at 1300. BUN and creatinine were elevated but this does seem to be chronic for the patient. She also exhibited A. fib with RVR with rates into the 120s and 130s. Did start Cardizem, rate has improved. Patient is feeling somewhat improved after receiving breathing treatments and IV steroids. Patient does clinically present as pneumonia so we will start Rocephin and azithromycin. She 'll be admitted to Dr. Michael. - Lab Data Result diagrams: 09/24/18 18:58 09/24/18 18:58 Lab Results 09/24/18 09/24/18 09/24/18 Range/Units 18:58 18:58 18:58 WBC 18.6 H (3.8-10.6) k/uL RBC 4.59 (3.80-5.40) m/uL Hgb 13.7 (11.4-16.0) gm/dL Hct 42.2 (34.0-46.0) % MCV 91.9 (80.0-100.0) fL MCH 29.8 (25.0-35.0) pg MCHC 32.4 (31.0-37.0) g/dL RDW 15.1 (11.5-15.5) % Plt Count 298 (150-450) k/uL Neutrophils % 92 % Lymphocytes % 3 % Monocytes % 3 % Eosinophils % 1 % Basophils % 0 % Neutrophils # 17.1 H (1.3-7.7) k/uL Lymphocytes # 0.6 L (1.0-4.8) k/uL Monocytes # 0.6 (0-1.0) k/uL Eosinophils # 0.2 (0-0.7) k/uL Basophils # 0.0 (0-0.2) k/uL Hypochromasia Slight PT 10.4 (9.0-12.0) sec INR 1.0 (<1.2) APTT 22.7 (22.0-30.0) sec D-Dimer 0.54 (<0.60) mg/L FEU Sodium 139 (137-145) mmol/L Potassium 4.7 (3.5-5.1) mmol/L Chloride 105 (98-107) mmol/L Carbon Dioxide 27 (22-30) mmol/L Anion Gap 7 mmol/L BUN 36 H (7-17) mg/dL Creatinine 1.40 H (0.52-1.04) mg/dL Est GFR (CKD-EPI)AfAm 40 (>60 ml/min/1.73 sqM) Est GFR (CKD-EPI)NonAf 35 (>60 ml/min/1.73 sqM) Glucose 95 (74-99) mg/dL Plasma Lactic Acid Miguel (0.7-2.0) mmol/L Calcium 9.6 (8.4-10.2) mg/dL Total Bilirubin 0.7 (0.2-1.3) mg/dL AST 22 (14-36) U/L ALT 41 (9-52) U/L Alkaline Phosphatase 61 (38-126) U/L Troponin I (0.000-0.034) ng/mL NT-Pro-B Natriuret Pep pg/mL Total Protein 6.3 (6.3-8.2) g/dL Albumin 3.8 (3.5-5.0) g/dL 09/24/18 09/24/18 09/24/18 Range/Units 18:58 18:58 21:30 WBC (3.8-10.6) k/uL RBC (3.80-5.40) m/uL Hgb (11.4-16.0) gm/dL Hct (34.0-46.0) % MCV (80.0-100.0) fL MCH (25.0-35.0) pg MCHC (31.0-37.0) g/dL RDW (11.5-15.5) % Plt Count (150-450) k/uL Neutrophils % % Lymphocytes % % Monocytes % % Eosinophils % % Basophils % % Neutrophils # (1.3-7.7) k/uL Lymphocytes # (1.0-4.8) k/uL Monocytes # (0-1.0) k/uL Eosinophils # (0-0.7) k/uL Basophils # (0-0.2) k/uL Hypochromasia PT (9.0-12.0) sec INR (<1.2) APTT (22.0-30.0) sec D-Dimer (<0.60) mg/L FEU Sodium (137-145) mmol/L Potassium (3.5-5.1) mmol/L Chloride (98-107) mmol/L Carbon Dioxide (22-30) mmol/L Anion Gap mmol/L BUN (7-17) mg/dL Creatinine (0.52-1.04) mg/dL Est GFR (CKD-EPI)AfAm (>60 ml/min/1.73 sqM) Est GFR (CKD-EPI)NonAf (>60 ml/min/1.73 sqM) Glucose (74-99) mg/dL Plasma Lactic Acid Miguel 1.6 (0.7-2.0) mmol/L Calcium (8.4-10.2) mg/dL Total Bilirubin (0.2-1.3) mg/dL AST (14-36) U/L ALT (9-52) U/L Alkaline Phosphatase (38-126) U/L Troponin I 0.032 (0.000-0.034) ng/mL NT-Pro-B Natriuret Pep 1310 pg/mL Total Protein (6.3-8.2) g/dL Albumin (3.5-5.0) g/dL - EKG Data -: EKG Interpreted by Vt EKG Comments: EKG obtained at 1836 shows atrial fibrillation with rapid ventricular response, ventricular rate is 122, QRS duration 78, QT 264, QTC 376. No evidence of ST elevation or depression. - Radiology Data Radiology results: report reviewed, image reviewed Two-view x-ray of the chest is obtained. Report reviewed in its entirety. Impression by Dr. Guajardo shows cardiomegaly and probably minimal heart failure. Heart failure is new compared to old exam. Disposition Clinical Impression: Atrial fibrillation with RVR, Pneumonia, CHF (congestive heart failure) Disposition: ADMITTED IP TO THIS [facility] Condition: Serious Referrals: Dillon Beth MD [Primary Care Provider] - 1-2 days Decision to Admit Reason: Admit from EC Decision Date: 09/24/18 Decision Time: 22:33
[2018-09-24 19:17] LABS: Basophils % (A) 0 %; Eosinophils # (A) 0.2 k/uL (0-0.7); Eosinophils % (A) 1 %; HCT 42.2 % (34.0-46.0); HGB 13.7 gm/dL (11.4-16.0); Hypochromasia Slight; Lymphocytes # (A) 0.6 k/uL (1.0-4.8); Lymphocytes % (A) 3 %; MCH 29.8 pg (25.0-35.0); MCHC 32.4 g/dL (31.0-37.0); MCV 91.9 fL (80.0-100.0); Mean Platelet Volume 7.1; Monocytes # (A) 0.6 k/uL (0-1.0); Monocytes % (A) 3 %; Neutrophils # (A) 17.1 k/uL (1.3-7.7); Neutrophils % (A) 92 %; Platelet Count 298 k/uL (150-450); RBC 4.59 m/uL (3.80-5.40); RDW 15.1 % (11.5-15.5); WBC 18.6 k/uL (3.8-10.6)
[2018-09-24 19:29] LABS: Albumin 3.8 g/dL (3.5-5.0); Calcium 9.6 mg/dL (8.4-10.2); Potassium 4.7 mmol/L (3.5-5.1); Total Bilirubin 0.7 mg/dL (0.2-1.3); Total Protein 6.3 g/dL (6.3-8.2)
[2018-09-24 19:31] LABS: D-Dimer 0.54 mg/L FEU (<0.60); Partial Thromboplastin Time 22.7 sec (22.0-30.0); Prothrombin Time 10.4 sec (9.0-12.0)
[2018-09-24] MEDS: DILTIAZEM 125 MG in SODIUM CHLORIDE 0.9% 100 ML IV SCH (19:42)
--- NOTE | 2018-09-24 20:59 | XR ---
EXAMINATION TYPE: XR chest 2V DATE OF EXAM: 09/24/2018 COMPARISON: 08/04/2017 HISTORY: Short of breath TECHNIQUE: Frontal and lateral views of the chest are obtained. FINDINGS: The heart is enlarged. There is mild pulmonary congestion. There is small right pleural ef fusion. There are chest leads. IMPRESSION: Cardiomegaly and probably minimal heart failure. Heart failure is new compared to old ex am.
[2018-09-24] MEDS ORDERED: ALBUTEROL NEBULIZED 2.5 MG/3 ML INHALATION PRN (22:28)
[2018-09-24] MEDS ORDERED: PNEUMONIA PROTOCOL UTILIZED 1 EACH MISC PO PRN (22:28)
[2018-09-24] MEDS ORDERED: AZITHROMYCIN 500 MG in SODIUM CHLORIDE 0.9% 250 ML IVPB STA (22:28)
[2018-09-24] MEDS ORDERED: PROMETHAZINE 25 MG TAB PO PRN (22:34)
[2018-09-24] MEDS ORDERED: traMADol 50 MG TAB PO PRN (22:34)
[2018-09-24] MEDS ORDERED: BISACODYL 10 MG SUPP RECTAL PRN (22:34)
[2018-09-25 04:02] LABS: Glucose,Whole Blood 184 mg/dL (75-99)
[2018-09-25] MEDS: PANTOPRAZOLE 40 MG TABLET PO SCH ×2 (06:40→20:57)
[2018-09-25] MEDS: BUDESONIDE 0.5 MG/2 ML NEBU INHALATION SCH ×4 (07:56→19:33)
[2018-09-25] MEDS: SYMBICORT 80-4.5 MCG INHALER INHALATION SCH ×2 (07:56→19:33)
[2018-09-25] MEDS: ALBUTEROL NEBULIZED 2.5 MG/3 ML INHALATION SCH ×4 (07:56→19:33)
[2018-09-25] MEDS ORDERED: NON-FORMULARY DRUG (Multivit-Min/Fa/Lycopen/Lutein [Centrum Silver Tablet] 1 TAB) PO SCH (08:00)
[2018-09-25] MEDS ORDERED: NON-FORMULARY DRUG (Ferrous Gluconate [Ferrous Gluconate] 324 MG) PO SCH (08:00)
[2018-09-25] MEDS: CYANOCOBALAMIN 500 MCG TAB PO SCH (08:24)
[2018-09-25] MEDS: GABAPENTIN 300 MG CAP PO SCH ×2 (08:24→20:57)
[2018-09-25] MEDS: DOCUSATE 100 MG CAP PO SCH ×2 (08:24→20:57)
[2018-09-25] MEDS: CALCIUM CARB-VIT D 500MG-200UN 1 EACH TAB PO SCH ×2 (08:24→20:57)
[2018-09-25] MEDS: FUROSEMIDE 20 MG TAB PO SCH (08:24)
[2018-09-25] MEDS: APIXABAN 5 MG TAB PO SCH ×2 (08:24→20:57)
[2018-09-25] MEDS: LORATADINE 10 MG TAB PO SCH (08:24)
[2018-09-25] MEDS: BENZONATATE 100 MG CAP PO PRN (08:24)
[2018-09-25] MEDS: FLUTICASONE 50MCG/SPRAY NASAL 16GM EA NOSTRIL SCH (08:30)
--- NOTE | 2018-09-25 14:37 | XR ---
EXAMINATION TYPE: XR chest 2V DATE OF EXAM: 09/25/2018 COMPARISON: 09/24/2018 HISTORY: 83-year-old female follow-up pneumonia TECHNIQUE: AP and lateral views FINDINGS: Heart mildly enlarged. Atherosclerotic arch calcifications. Diffuse interstitial prominence. Some foc al lobulation posterior hemidiaphragm on the lateral view probably diaphragmatic eventration or small Bochdalek hernia. No sofia consolidation or pleural effusion. Prominent right first rib end. IMPRESSION: Mild cardiomegaly. Interstitial changes appear in part chronic. Correlate for possible bronchitis/ast hma. Prominent right first rib end is stable.
[2018-09-25 14:49] VITALS: BMI 31.5
[2018-09-25] MEDS ORDERED: BUDESONIDE 1 MG/2 ML NEBU INHALATION SCH (20:00)
[2018-09-25] MEDS: IPRATROPIUM-ALBUTEROL 3 ML NEB INHALATION SCH ×2 (20:13→23:53)
[2018-09-25] MEDS ORDERED: ENOXAPARIN 40 MG/0.4 ML SYRINGE SQ SCH (20:15)
--- NOTE | 2018-09-25 20:50 | HP ---
HISTORY AND PHYSICAL DATE OF ADMISSION: 09/24/2018 DATE OF SERVICE: 09/25/2018. PRESENTING COMPLAINT: Short of breath, wheezing. HISTORY OF PRESENTING COMPLAINT: This is a very pleasant 83-year-old patient who follows with Visiting Physician Dr. Beth. Chronic stable medical conditions include hypertension, hyperlipidemia, arthritis. Patient has known history of COPD, ex-smoker. The patient presented with worsening shortness of breath, cough, wheezing, congested, minimal sputum, tired, rundown. The patient was found to have pneumonia in the ER. Admitted for the same. Appetite is okay. She has a bowel movement every 3 days. Admitted for the same, started on antibiotics. REVIEW OF SYSTEMS: CONSTITUTIONAL: Weak and tired. HEENT: None. RESPIRATORY: As above. CARDIOVASCULAR: None. GASTROINTESTINAL: None. GENITOURINARY: None. MUSCULOSKELETAL: Pain in some joints. DERMATOLOGICAL: None. HEMATOLOGICAL: None. LYMPHATICS: None. PSYCHIATRY: None. NEUROLOGICAL: None. PAST MEDICAL HISTORY: 1. COPD. 2. TIA. 3. Hyperlipidemia. 4. Hypertension. 5. Colon and breast cancer. PAST SURGICAL HISTORY: Double mastectomy. PSYCH HISTORY: Schizophrenia. SOCIAL HISTORY: Lives at [facility]. Uses a cane. Did smoke and drink alcohol in the past. FAMILY HISTORY: Back problems. HOME MEDICATIONS: 1. Ultram 50 mg t.i.d. p.r.n. 2. Mucinex 600 mg p.o. b.i.d. 3. Phenergan 12.5 p.o. q.12 p.r.n. 4. MiraLAX 17 grams p.o. daily. 5. Prilosec 20 mg p.o. b.i.d. 6. Olanzapine 20 mg p.o. at bedtime. 7. Centrum Silver 1 tablet p.o. daily. 8. Claritin 10 mg p.o. daily. 9. DuoNeb q.i.d. 10.Anucort 25 mg rectally q.12 p.r.n. 11.Guaifenesin 5 mL q.i.d. p.r.n. 12.Neurontin 300 mg b.i.d. 13.Lasix 20 mg p.o. daily. 14.Advair 250/50 one puff b.i.d. 15.Flonase 1 spray each nostril daily. 16.Iron 324 mg p.o. daily. 17.Colace 100 mg p.o. b.i.d. 18.Lomotil 1 tablet q.6 p.r.n. 19.Dexamethasone 6 mg p.o. daily. 20.Vitamin B12 1000 mcg a day. 21.Calcium 600 one tablet p.o. b.i.d. 22.Budesonide 0.5 mg q.i.d. 23.Dulcolax. 24.Tessalon Perles 100 mg t.i.d. 25.Lipitor 20 mg at bedtime. 26.Eliquis 5 mg b.i.d. 27.Tylenol 650 mg b.i.d. ALLERGIES: NONE. PHYSICAL EXAMINATION: VITAL SIGNS ON PRESENTATION: Temperature 98.9, pulse 115, respiration 28, blood pressure 168/139, pulse ox 91% on room air. GENERAL APPEARANCE: Well built; BMI 31.5. Sitting up, tired. EYES: Pupils equal. Conjunctivae normal. HEENT: External appearance of nose and ears normal. Oral cavity normal. NECK: JVD not raised. Mass not palpable. RESPIRATORY: Effort increased. LUNGS: Decreased breath sounds with prolonged expiration and inspiratory coarse crackles. CARDIOVASCULAR: First and second sounds normal. No edema. ABDOMEN: Soft, nontender. Liver and spleen not palpable. LYMPHATIC: No lymph node palpable in neck or axillae. PSYCHIATRY: Alert and oriented x3. Mood and affect slightly anxious-appearing. NEUROLOGICAL: Pupils equal. Cranial nerves grossly intact. Power and sensation grossly intact. MUSCULOSKELETAL: Evidence of osteoarthritis, especially in the hands. INVESTIGATIONS: Chest x-ray film, personally reviewed by me, shows some basal infiltrates. White count 18.6, hemoglobin 13.7, potassium 4.7, BUN 36, creatinine 1.40. Creatinine was 1.28 earlier. ASSESSMENT: 1. Bilateral pneumonia. Suspect gram-negative organism. 2. Chronic kidney disease, stage III, from nephrosclerosis. 3. Obesity with body mass index of 31.5. 4. Acute chronic obstructive pulmonary disease exacerbation in an ex-smoker. 5. Essential hypertension. 6. Hyperlipidemia. PLAN: Patient will be started on bronchodilators, inhaled and IV steroids, antibiotics. Home medications are resumed. Care was discussed with the patient. Questions were answered. We will also add Mucinex. MMODL / IJN: [id number] /
[2018-09-25] MEDS: ATORVASTATIN 20 MG TAB PO SCH (20:56)
[2018-09-25] MEDS: methylPREDNISolone SOD SUCCI 40 MG/ML 1 ML VIAL IV SCH (20:56)
[2018-09-25] MEDS: OLANZapine ODT 10 MG TAB PO SCH (20:56)
[2018-09-25] MEDS: guaiFENesin 600 MG TABLET.ER PO SCH (20:56)
[2018-09-25] MEDS: AZITHROMYCIN 500 MG TAB PO SCH (20:57)
[2018-09-25] MEDS: DILTIAZEM 125 MG in SODIUM CHLORIDE 0.9% 100 ML IV SCH (21:19)
[2018-09-26] MEDS: BENZONATATE 100 MG CAP PO PRN (03:30)
[2018-09-26] MEDS: IPRATROPIUM-ALBUTEROL 3 ML NEB INHALATION SCH ×6 (03:38→23:28)
[2018-09-26] MEDS: PANTOPRAZOLE 40 MG TABLET PO SCH ×2 (07:08→20:53)
[2018-09-26] MEDS: methylPREDNISolone SOD SUCCI 40 MG/ML 1 ML VIAL IV SCH ×3 (07:08→20:59)
[2018-09-26] MEDS: guaiFENesin 600 MG TABLET.ER PO SCH ×2 (09:10→20:53)
[2018-09-26] MEDS: CALCIUM CARB-VIT D 500MG-200UN 1 EACH TAB PO SCH ×2 (09:10→20:53)
[2018-09-26] MEDS: FLUTICASONE 50MCG/SPRAY NASAL 16GM EA NOSTRIL SCH (09:10)
[2018-09-26] MEDS: CYANOCOBALAMIN 500 MCG TAB PO SCH (09:10)
[2018-09-26] MEDS: GABAPENTIN 300 MG CAP PO SCH ×2 (09:10→20:53)
[2018-09-26] MEDS: APIXABAN 5 MG TAB PO SCH ×2 (09:10→20:53)
[2018-09-26] MEDS: FUROSEMIDE 20 MG TAB PO SCH (09:10)
[2018-09-26] MEDS: DOCUSATE 100 MG CAP PO SCH ×2 (09:10→20:53)
[2018-09-26] MEDS: LORATADINE 10 MG TAB PO SCH (09:10)
[2018-09-26] MEDS: SYMBICORT 80-4.5 MCG INHALER INHALATION SCH ×2 (09:26→19:56)
[2018-09-26] MEDS: DILTIAZEM 125 MG in SODIUM CHLORIDE 0.9% 100 ML IV SCH (16:43)
[2018-09-26] MEDS: ATORVASTATIN 20 MG TAB PO SCH (20:53)
[2018-09-26] MEDS: AZITHROMYCIN 500 MG TAB PO SCH (20:53)
[2018-09-26] MEDS: OLANZapine ODT 10 MG TAB PO SCH (20:53)
[2018-09-27] MEDS: IPRATROPIUM-ALBUTEROL 3 ML NEB INHALATION SCH ×6 (02:57→23:04)
[2018-09-27] MEDS: PANTOPRAZOLE 40 MG TABLET PO SCH ×2 (05:09→20:27)
[2018-09-27] MEDS: methylPREDNISolone SOD SUCCI 40 MG/ML 1 ML VIAL IV SCH ×3 (05:09→20:26)
[2018-09-27] MEDS: SYMBICORT 80-4.5 MCG INHALER INHALATION SCH ×2 (07:34→19:27)
--- NOTE | 2018-09-27 08:41 | P.CRDCN ---
History of Present Illness Consult date: 09/27/18 Requesting physician: Vega Michael Consult reason: atrial fibrillation Chief complaint: Shortness of breath, productive cough History of present illness: This is an 83-year-old female with history of hypertension, hyperlipidemia, prior TIA, COPD, chronic kidney disease, prior history of smoking, who presented to the hospital with symptoms of shortness of breath with associated cough, sputum production and wheezing. She was diagnosed here with bilateral pneumonia, and is currently being treated with bronchodilators inhalers and stent steroids along with antibiotics. EKG on presentation here showed atrial fibrillation with a rapid ventricular response for which cardiology consultation was requested. Upon review of prior EKG, patient is noted to have atrial fibrillation in the past. She is on Eliquis at home for anticoagulation. Blood pressure this morning 118/60 with a heart rate in the 80s, 96% on room air. White blood cell count 18.6, hemoglobin 13.7, platelet count 298. D-dimer 0.5. Sodium 139, potassium 4.7, BUN 36 and creatinine 1.4. BNP level 1310, troponin 0.032. Influenza A and B are negative. Patient had an echocardiogram with Doppler study performed in June 2017 which revealed an ejection fraction of 55-60%. Past Medical History Past Medical History: Cancer, COPD, CVA/TIA, Hyperlipidemia, Hypertension Additional Past Medical History / Comment(s): colon & breast CA Last Myocardial Infarction Date:: unk History of Any Multi-Drug Resistant Organisms: None Reported Past Surgical History: Breast Surgery Additional Past Surgical History / Comment(s): double mastectomy Past Anesthesia/Blood Transfusion Reactions: No Reported Reaction Past Psychological History: Schizophrenia Additional Psychological History / Comment(s): pt stated she lives in a group home apt but can't rememebr name of it Smoking Status: Former smoker Past Alcohol Use History: None Reported Additional Past Alcohol Use History / Comment(s): started smoking in her 20's and quit at age 51, also quit drinking at age 51(went to ) Past Drug Use History: None Reported - Past Family History Mother Additional Family Medical History / Comment(s): "back problems' Father History Unknown: Yes Medications and Allergies Home Medications Medication Instructions Recorded Confirmed Type Acetaminophen [Tylenol] 650 mg PO BID@080007/25/17 09/24/18 History Calcium Carbonate/Vitamin D3 1 tab PO BID@0800,199907/25/17 09/24/18 History [Calcium 600-Vit D3 400 Tablet] Docusate [Colace] 100 mg PO BID@08,199907/25/17 09/24/18 History Fluticasone Nasal [place] [Flonase 1 spray EA NOSTRIL DAILY@0800 07/25/17 History Nasal [place]] Fluticasone/Salmeterol [Advair 1 puff INHALATION RT-BID@08,199907/25/1709/24 History 250-50 Diskus] Gabapentin [Neurontin] 300 mg PO BID@0800,199907/25/17 09/24/18 History Loratadine [Claritin] 10 mg PO DAILY@0800 07/25/17 09/24/18 History Multivit-Min/FA/Lycopen/Lutein 1 tab PO DAILY@0800 07/25/17 09/24/18 History [Centrum Silver Tablet] Omeprazole [PriLOSEC] 20 mg PO BID@06,199907/25/17 09/24/18 History Polyethylene Glycol 3350 [Miralax] 17 gm PO DAILY@0800 07/25/17 09/24/18 History Promethazine [Phenergan] 12.5 mg PO Q12H PRN 07/25/17 09/24/18 History Apixaban [Eliquis] 5 mg PO BID@08,1999 #0 08/10/17 09/24/18 Rx Ipratropium-Albuterol Nebulize 3 ml INHALATION RT-QID ampul.neb 08/10/17 Rx [Duoneb 0.5 mg-3 mg/3 ml Soln] Atorvastatin Calcium [Lipitor] 20 mg PO HS@199909/24/18 09/24/18 History Benzonatate [Tessalon Perles] 100 mg PO TID PRN 09/24/18 09/24/18 History Bisacodyl [Dulcolax] 10 mg RECTAL DAILY PRN 09/24/18 09/24/18 History Budesonide [Pulmicort] 0.5 mg INHALATION RT-QID 09/24/18 09/24/18 History Cyanocobalamin (Vitamin B-12) 1,000 mcg PO DAILY 09/24/18 09/24/18 History [Vitamin B-12] Dexamethasone 6 mg PO DAILY 09/24/18 09/24/18 History Diphenox-Atrop 2.5-0.025 mg 1 tab PO Q4H PRN 09/24/18 09/24/18 History [Lomotil] Ferrous Gluconate 324 mg PO DAILY@0800 09/24/18 09/24/18 History Furosemide [Lasix] 20 mg PO DAILY@0809/24/18 09/24/18 History Guaifenesin/Dextromethorphan 5 ml PO QID PRN 09/24/18 09/24/18 History [guaiFENesin DM] Hydrocortisone Acetate [Anucort-Hc] 25 mg RECTAL Q12H PRN 09/24/18 09/24/18 History OLANZapine [OLANZapine Odt] 20 mg PO HS@199909/24/18 09/24/18 History guaiFENesin [Mucinex] 600 mg PO BID@799,199909/24/18 09/24/18 History traMADol HCl [Ultram] 50 mg PO TID PRN 09/24/18 09/24/18 History Allergies Allergy/AdvReac Type Severity Reaction Status Date / Time No Known Allergies Allergy Verified 09/24/18 18:10 Physical Exam Vitals: Vital Signs Temp Pulse Pulse Resp BP Pulse Ox 09/27/18 07:45 88 09/27/18 07:34 80 09/27/18 04:00 97.8 F 89 16 118/64 96 09/27/18 03:05 77 09/27/18 03:00 77 09/27/18 00:00 86 16 125/66 96 09/26/18 23:37 78 09/26/18 23:29 77 09/26/18 20:37 97.7 F 92 16 134/67 95 09/26/18 20:07 82 09/26/18 19:58 80 09/26/18 16:00 97.7 F 81 20 128/67 95 09/26/18 15:54 80 09/26/18 15:44 84 09/26/18 12:34 84 09/26/18 12:00 97.9 F 81 18 130/70 97 09/26/18 09:38 80 09/26/18 09:26 80 Intake and Output 09/26/18 09/27/18 09/27/18 22:59 06:59 14:59 Intake Total 337 Output Total 2 Balance 337 -2 Intake: Intake, IV Titration 97 Amount Diltiazem 125 mg In 97 Sodium Chloride 0.9% 100 ml @ 5 MG/HR 5 mls/hr IV .Q24H [facility] Rx#:[id number] Oral 240 Output: Urine/Stool Mix 2 Other: # Voids 1 1 Weight 87.4 kg PHYSICAL EXAMINATION: GENERAL: 83-year-old female in no acute distress at the time of my examination HEENT: Head is atraumatic, normocephalic. Pupils equal, round. Sclera anicteric. Conjunctiva are clear. Mucous membranes of the mouth are moist. Neck is supple. There is no elevated jugular venous pressure. No carotid bruit is heard. HEART EXAMINATION: Heart S1 and S2 irregularly irregular a systolic murmur is heard. CHEST EXAMINATION: Lungs reveal fine crackles to bilateral bases. ABDOMEN: Soft, nontender. Bowel sounds are heard. No organomegaly noted. EXTREMITIES: 2+ peripheral pulses with evidence of peripheral edema and no calf tenderness noted. NEUROLOGIC patient is awake, alert and oriented 2 . . Results 09/24/18 18:58 09/24/18 18:58 Current Medications Generic Name Dose Route Start Last Admin Trade Name Freq PRN Reason Stop Dose Admin Albuterol Sulfate 2.5 mg 09/24/18 22:28 Ventolin Nebulized INHALATION RT-Q4H PRN Shortness Of Breath Or Wheezing Albuterol/Ipratropium 3 ml 09/25/18 20:00 09/27/18 07:34 Duoneb 0.5 Mg-3 Mg/3 Ml Soln INHALATION 3 ml RT-Q4H [facility] Administration Apixaban 5 mg 09/25/18 08:00 09/26/18 20:53 Eliquis PO 5 mg BID@08,1999 [facility] Administration Atorvastatin Calcium 20 mg 09/25/18 20:00 09/26/18 20:53 Lipitor PO 20 mg HS@1999 [facility] Administration Azithromycin 500 mg 09/25/18 22:30 09/26/18 20:53 Zithromax PO 500 mg Q24H [facility] Administration Benzonatate 100 mg 09/24/18 22:34 09/26/18 03:30 Tessalon Perles PO 100 mg TID PRN Administration Cough Bisacodyl 10 mg 09/24/18 22:34 Dulcolax RECTAL DAILY PRN Constipation Budesonide/Formoterol Fumarate 1 puff 09/25/18 08:00 09/27/18 07:34 Symbicort 80-4.5 Mcg Inhaler INHALATION 1 puff RT-BID@ [facility] Administration Calcium Carbonate 1 each 09/25/18 08:00 09/26/18 20:53 Oscal 500+D PO 1 each BID@ [facility] Administration Cyanocobalamin 1,000 mcg 09/25/18 09:00 09/26/18 09:10 Vitamin B-12 PO 1,000 mcg DAILY [facility] Administration Docusate Sodium 100 mg 09/25/18 08:00 09/26/18 20:53 Colace PO 100 mg BID@ [facility] Administration Fluticasone Propionate 1 spray 09/25/18 08:00 09/26/18 09:10 Flonase Nasal [place] EA NOSTRIL 1 spray DAILY@0800 [facility] Administration Furosemide 20 mg 09/25/18 08:00 09/26/18 09:10 Lasix PO 20 mg DAILY@0800 [facility] Administration Gabapentin 300 mg 09/25/18 08:00 09/26/18 20:53 Neurontin PO 300 mg BID@ [facility] Administration Guaifenesin 1,200 mg 09/25/18 21:00 09/26/18 20:53 Mucinex PO 1,200 mg Q12HR [facility] Administration Diltiazem HCl 125 mg/ Sodium 125 mls @ 5 mls/hr 09/24/18 18:45 09/26/18 16:43 Chloride IV 5 mg/hr .Q24H [facility] 5 mls/hr Administration 5 MG/HR Ceftriaxone Sodium 1 gm/ 50 mls @ 100 mls/hr 09/25/18 22:30 09/26/18 20:52 Sodium Chloride IVPB 100 mls/hr Q24H [facility] Administration Loratadine 10 mg 09/25/18 08:00 09/26/18 09:10 Claritin PO 10 mg DAILY@0800 [facility] Administration Methylprednisolone Sodium Succinate 40 mg 09/25/18 21:00 09/27/18 05:09 Solu-Medrol IV 40 mg Q8H [facility] Administration Miscellaneous Information 1 each 09/24/18 22:28 Pneumonia Protocol Utilized PO ONCE PRN Per Protocol Olanzapine 20 mg 09/25/18 20:00 09/26/18 20:53 Zyprexa Zydis PO 20 mg HS@1999 [facility] Administration Pantoprazole Sodium 40 mg 09/25/18 06:00 09/27/18 05:09 Protonix PO 40 mg BID@0600,2000 [facility] Administration Promethazine HCl 12.5 mg 09/24/18 22:34 Phenergan PO Q12H PRN Nausea Tramadol HCl 50 mg 09/24/18 22:34 Ultram PO TID PRN Severe Pain Intake and Output 09/26/18 09/27/18 09/27/18 22:59 06:59 14:59 Intake Total 337 Output Total 2 Balance 337 -2 Intake: Intake, IV Titration 97 Amount Diltiazem 125 mg In 97 Sodium Chloride 0.9% 100 ml @ 5 MG/HR 5 mls/hr IV .Q24H [facility] Rx#:[id number] Oral 240 Output: Urine/Stool Mix 2 Other: # Voids 1 1 Weight 87.4 kg 09/24/18 18:58 09/24/18 18:58 EKG Interpretations (text) Shows atrial fibrillation with moderately rapid ventricular response Assessment and Plan Plan: Assessment and plan #1 symptoms of shortness of breath with associated productive cough and chills, temperature 101 on admission, chest x-ray revealed pneumonia and patient is currently on treatment for this. #2 history of breast and colon cancer #3 chronic persistent atrial fibrillation on Eliquis for anticoagulation #4 acute on chronic renal failure #5 hypertension #6 hyperlipidemia #7 COPD #8 prior history of smoking #9 prior TIA Plan We will obtain an echocardiogram with Doppler study. We will also discontinue the patient's IV Cardizem, start the patient on beta fernando. Continue anticoagulation with Eliquis. DNP note has been reviewed, I agree with a documented findings and plan of care. Patient was seen and examined.
[2018-09-27] MEDS: GABAPENTIN 300 MG CAP PO SCH ×2 (09:36→20:27)
[2018-09-27] MEDS: CYANOCOBALAMIN 500 MCG TAB PO SCH (09:36)
[2018-09-27] MEDS: DOCUSATE 100 MG CAP PO SCH ×2 (09:36→20:26)
[2018-09-27] MEDS: APIXABAN 5 MG TAB PO SCH ×2 (09:36→20:27)
[2018-09-27] MEDS: LORATADINE 10 MG TAB PO SCH (09:36)
[2018-09-27] MEDS: guaiFENesin 600 MG TABLET.ER PO SCH ×2 (09:36→20:27)
[2018-09-27] MEDS: METOPROLOL TARTRATE 25 MG TAB PO SCH ×2 (09:36→20:27)
[2018-09-27] MEDS: CALCIUM CARB-VIT D 500MG-200UN 1 EACH TAB PO SCH ×2 (09:36→20:27)
[2018-09-27] MEDS: FLUTICASONE 50MCG/SPRAY NASAL 16GM EA NOSTRIL SCH (09:37)
[2018-09-27] MEDS: FUROSEMIDE 20 MG TAB PO SCH (09:37)
[2018-09-27] MEDS ORDERED: FUROSEMIDE 10 MG/ML 4 ML VIAL IV STA (12:23)
--- NOTE | 2018-09-27 16:39 | ECHOF ---
Referral Reason:afib MEASUREMENTS -------- HEIGHT: 172.7 cm WEIGHT: 87.1 kg BP: 118/64 RVIDd: 2.5 cm (< 3.3) IVSd: 1.2 cm (0.6 - 1.1) LVIDd: 4.1 cm (3.9 - 5.3) LVPWd: 1.4 cm (0.6 - 1.1) IVSs: 1.6 cm LVIDs: 2.9 cm LVPWs: 1.3 cm LA Diam: 3.9 cm (2.7 - 3.8) LAESV Index (A-L): 51.79 ml/m Ao Diam: 3.8 cm (2.0 - 3.7) AV Cusp: 1.5 cm (1.5 - 2.6) LA Diam: 5.1 cm (2.7 - 3.8) MV EXCURSION: 19.089 mm (> 18.000) MV EF SLOPE: 49 mm/s (70 - 150) EPSS: 0.2 cm MV E Mitchel: 1.09 m/s MV DecT: 136 ms MV A Mitchel: 0.02 m/s MV E/A Ratio: 50.50 RAP: 20.00 mmHg RVSP: 66.18 mmHg FINDINGS -------- Sinus rhythm. This was a technically adequate study. The left ventricular size is normal. There is mild concentric left ventricular hypertrophy. Overa ll left ventricular systolic function is normal with, an EF between 55 - 60 %. The right ventricle is normal in size. The left atrium is moderately dilated. The right atrial size is normal. There is mild aortic valve sclerosis. There is no evidence of aortic regurgitation. Mild mitral annular calcification present. Mild mitral regurgitation is present. Moderate tricuspid regurgitation present. There is moderate pulmonary hypertension. The right angelica tricular systolic pressure, as measured by Doppler, is 66.18mmHg. Trace/mild (physiologic) pulmonic regurgitation. The aortic root size is normal. The inferior vena cava is dilated with no significant inspiratory collapse which is consistent estima darryl right atrial pressure of >20 mmHg. There is no pericardial effusion. CONCLUSIONS -------- 1. The left ventricular size is normal. 2. There is mild concentric left ventricular hypertrophy. 3. Overall left ventricular systolic function is normal with, an EF between 55 - 60 %. 4. The right ventricle is normal in size. 5. The left atrium is moderately dilated. 6. The right atrial size is normal. 7. There is mild aortic valve sclerosis. 8. Mild mitral annular calcification present. 9. Mild mitral regurgitation is present. 10. Moderate tricuspid regurgitation present. 11. There is moderate pulmonary hypertension. 12. The right ventricular systolic pressure, as measured by Doppler, is 66.18mmHg. 13. Trace/mild (physiologic) pulmonic regurgitation. 14. The aortic root size is normal. 15. The inferior vena cava is dilated with no significant inspiratory collapse which is consistent es timated right atrial pressure of >20 mmHg. 16. There is no pericardial effusion. BENZOL STILL OPERATOR: Adele Abbasi RDCS
[2018-09-27] MEDS: OLANZapine ODT 10 MG TAB PO SCH (20:26)
[2018-09-27] MEDS: AZITHROMYCIN 500 MG TAB PO SCH (20:27)
[2018-09-27] MEDS: ATORVASTATIN 20 MG TAB PO SCH (20:27)
[2018-09-28] MEDS: IPRATROPIUM-ALBUTEROL 3 ML NEB INHALATION SCH ×5 (03:01→18:57)
[2018-09-28] MEDS: PANTOPRAZOLE 40 MG TABLET PO SCH ×2 (05:59→20:43)
[2018-09-28] MEDS: methylPREDNISolone SOD SUCCI 40 MG/ML 1 ML VIAL IV SCH ×3 (05:59→20:43)
--- NOTE | 2018-09-28 06:01 | PN ---
PROGRESS NOTE DATE OF SERVICE: 09/26/2018. PRESENTING COMPLAINT: Short of breath. INTERVAL HISTORY: The patient presented with bilateral pneumonia. Still congested cough. Appetite is slowly getting better. Also has had atrial fibrillation with variable heart rate. Antibiotics for the same. Sitting up on a chair. REVIEW OF SYSTEMS: Done for constitutional, cardiovascular, GI, pulmonary; relevant findings as above. CURRENT MEDICATIONS: Current medications are reviewed. PHYSICAL EXAMINATION: On examination, temperature 97.7, pulse 81, respiration 20, blood pressure 128/67, pulse ox 95% on room air. GENERAL APPEARANCE: Sitting up in a chair, awake. EYES: Pupils equal. Conjunctivae normal. NECK: JVD not raised. Mass not palpable. RESPIRATORY: Effort increased. LUNGS: Decreased breath sounds. Expiratory crackles. CARDIOVASCULAR: Heart sounds irregular. No edema. ABDOMEN: Soft, nontender. Liver and spleen not palpable. PSYCHIATRY: Alert and oriented x3. Mood and affect normal. INVESTIGATIONS: No blood work from today. ASSESSMENT: 1. Bilateral pneumonia suspect gram-negative organism, slow to respond. 2. 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 3. Obesity; body mass index 31.5. 4. Acute chronic obstructive pulmonary disease exacerbation in an ex-smoker. 5. Essential hypertension. 6. Hyperlipidemia. 7. Atrial fibrillation with a variable rate. PLAN: Continue current medication and treatment plan. Patient is slow to respond. Continue with antibiotics, steroids. Follow with Cardiology. MMODL / IJN: [id number] /
--- NOTE | 2018-09-28 06:08 | PN ---
PROGRESS NOTE DATE OF SERVICE: 09/27/2018 PRESENTING COMPLAINT: Cough. INTERVAL HISTORY: Patient presented with bilateral pneumonia, atrial fibrillation, on IV antibiotics. Sitting up. Appetite is getting a bit better. Cough is still present. Bringing up a little bit of sputum. Heart rate has been a bit variable. REVIEW OF SYSTEMS: Done for constitutional, cardiovascular, GI, pulmonary; relevant findings as above. CURRENT MEDICATIONS: Current medications are reviewed that include DuoNeb, Eliquis, Zithromax ceftriaxone, p.o. Lasix, Neurontin, IV Solu-Medrol, Lopressor. PHYSICAL EXAMINATION: On examination, temperature 98.3, pulse 98, respirations 20, blood pressure 132/73, pulse ox 94% on room air. GENERAL APPEARANCE: Sitting up, looking a bit better. EYES: Pupils equal. Conjunctivae normal. NECK: JVD not raised. Mass not palpable. RESPIRATORY: Effort increased. LUNGS: Decreased breath sounds. Less crackles, less wheezing. CARDIOVASCULAR: Heart sounds irregular. No edema. ABDOMEN: Soft, nontender. Liver and spleen not palpable. PSYCHIATRY: Alert and oriented x3. Mood and affect normal. INVESTIGATIONS: No blood work from today. ASSESSMENT: 1. Bilateral pneumonia suspect gram-negative organism. 2. Chronic kidney stage 3 from nephrosclerosis. 3. Obesity; body mass index 31.5. 4. Acute chronic obstructive pulmonary disease exacerbation in an ex-smoker. 5. Essential hypertension. 6. Hyperlipidemia. 7. Persistent atrial fibrillation on Eliquis. 8. Moderate tricuspid regurgitation, nonrheumatic. 9. Secondary moderate pulmonary hypertension due to underlying chronic obstructive pulmonary disease. PLAN: Continue current medication and treatment plan. Patient's IV Cardizem was discontinued. Beta fernando was started by Cardiology. A 2D echo showed the EF of 55% to 60%. MMODL / IJN: [id number] /
[2018-09-28 06:12] LABS: Basophils % (A) 0 %; Eosinophils # (A) 0.1 k/uL (0-0.7); Eosinophils % (A) 0 %; HCT 39.4 % (34.0-46.0); HGB 12.7 gm/dL (11.4-16.0); Hypochromasia Slight; Lymphocytes # (A) 0.4 k/uL (1.0-4.8); Lymphocytes % (A) 2 %; MCH 29.8 pg (25.0-35.0); MCHC 32.3 g/dL (31.0-37.0); MCV 92.4 fL (80.0-100.0); Mean Platelet Volume 6.5; Monocytes # (A) 0.8 k/uL (0-1.0); Monocytes % (A) 4 %; Neutrophils # (A) 16.8 k/uL (1.3-7.7); Neutrophils % (A) 93 %; Platelet Count 314 k/uL (150-450); RBC 4.26 m/uL (3.80-5.40); RDW 15.1 % (11.5-15.5); WBC 18.1 k/uL (3.8-10.6)
[2018-09-28 06:19] LABS: Calcium 9.9 mg/dL (8.4-10.2); Potassium 4.9 mmol/L (3.5-5.1)
[2018-09-28] MEDS: SYMBICORT 80-4.5 MCG INHALER INHALATION SCH ×2 (07:30→18:57)
[2018-09-28] MEDS: APIXABAN 5 MG TAB PO SCH ×2 (08:16→20:43)
[2018-09-28] MEDS: FLUTICASONE 50MCG/SPRAY NASAL 16GM EA NOSTRIL SCH (08:16)
[2018-09-28] MEDS: GABAPENTIN 300 MG CAP PO SCH ×2 (08:17→20:43)
[2018-09-28] MEDS: CALCIUM CARB-VIT D 500MG-200UN 1 EACH TAB PO SCH ×2 (08:17→20:43)
[2018-09-28] MEDS: LORATADINE 10 MG TAB PO SCH (08:17)
[2018-09-28] MEDS: FUROSEMIDE 20 MG TAB PO SCH (08:17)
[2018-09-28] MEDS: DOCUSATE 100 MG CAP PO SCH ×2 (08:17→20:43)
[2018-09-28] MEDS: CYANOCOBALAMIN 500 MCG TAB PO SCH (08:18)
[2018-09-28] MEDS: METOPROLOL TARTRATE 25 MG TAB PO SCH ×2 (08:18→20:43)
[2018-09-28] MEDS: guaiFENesin 600 MG TABLET.ER PO SCH ×2 (08:18→20:43)
--- NOTE | 2018-09-28 14:00 | P.PN ---
Subjective Progress Note Date: 09/28/18 This is an 83-year-old female with history of hypertension, hyperlipidemia, prior TIA, COPD, chronic kidney disease, prior history of smoking, who presented to the hospital with symptoms of shortness of breath with associated cough, sputum production and wheezing. She was diagnosed here with bilateral pneumonia, and is currently being treated with bronchodilators inhalers and stent steroids along with antibiotics. EKG on presentation here showed atrial fibrillation with a rapid ventricular response for which cardiology consultation was requested. Upon review of prior EKG, patient is noted to have atrial fibrillation in the past. She is on Eliquis at home for anticoagulation. Blood pressure this morning 118/60 with a heart rate in the 80s, 96% on room air. White blood cell count 18.6, hemoglobin 13.7, platelet count 298. D-dimer 0.5. Sodium 139, potassium 4.7, BUN 36 and creatinine 1.4. BNP level 1310, troponin 0.032. Influenza A and B are negative. Patient had an echocardiogram with Doppler study performed in June 2017 which revealed an ejection fraction of 55-60%. 09/28/2018 Patient was seen and examined this morning, weight is down today 2 kg. Heart rate maintaining in the 80s. Blood pressure 122/70, 94% on 2 L of oxygen. White blood cell count 18.1, hemoglobin 12.7, platelet count 314. Sodium 138, potassium 4.9, BUN 54 and creatinine 1.4. Objective - Vital Signs Vital signs: Vital Signs Temp 97.5 F L 09/28/18 12:10 Pulse 85 09/28/18 12:13 Resp 16 09/28/18 12:10 BP 123/75 09/28/18 12:10 Pulse Ox 94 L 09/28/18 12:10 Intake & Output 09/27/18 09/28/18 09/28/18 18:59 06:59 18:59 Intake Total 720 100 Balance 720 100 Weight 85.3 kg Intake: Oral 720 100 Other: Voiding Method Toilet # Voids 1 2 2 - Exam PHYSICAL EXAMINATION: GENERAL: 83-year-old female in no acute distress at the time of my examination HEENT: Head is atraumatic, normocephalic. Pupils equal, round. Sclera anicteric. Conjunctiva are clear. Mucous membranes of the mouth are moist. Neck is supple. There is no elevated jugular venous pressure. No carotid bruit is heard. HEART EXAMINATION: Heart S1 and S2 irregularly irregular a systolic murmur is heard. CHEST EXAMINATION: Lungs reveal fine crackles to bilateral bases. ABDOMEN: Soft, nontender. Bowel sounds are heard. No organomegaly noted. EXTREMITIES: 2+ peripheral pulses with evidence of peripheral edema and no calf tenderness noted. NEUROLOGIC patient is awake, alert and oriented 2 . . - Labs CBC & Chem 7: 09/28/18 05:50 09/28/18 05:50 Labs: Abnormal Lab Results - Last 24 Hours (Table) 09/28/18 09/28/18 Range/Units 05:50 05:50 WBC 18.1 H (3.8-10.6) k/uL Neutrophils # 16.8 H (1.3-7.7) k/uL Lymphocytes # 0.4 L (1.0-4.8) k/uL BUN 50 H (7-17) mg/dL Creatinine 1.49 H (0.52-1.04) mg/dL Glucose 134 H (74-99) mg/dL Microbiology - Last 24 Hours (Table) 09/24/18 18:58 Blood Culture - Preliminary Blood No Growth after 72 hours Assessment and Plan Plan: Assessment and plan #1 symptoms of shortness of breath with associated productive cough and chills, temperature 101 on admission, chest x-ray revealed pneumonia and patient is currently on treatment for this. #2 history of breast and colon cancer #3 chronic persistent atrial fibrillation on Eliquis for anticoagulation #4 acute on chronic renal failure #5 hypertension #6 hyperlipidemia #7 COPD #8 prior history of smoking #9 prior TIA Plan Echo cardiogram with Doppler study revealed an ejection fraction of 55-60%, moderate tricuspid regurg and moderate pulmonary hypertension. Overall the patient's heart rate is remaining stable today in the 80s. We will continue with current medications. DNP note has been reviewed, I agree with a documented findings and plan of care. Patient was seen and examined.
[2018-09-28] MEDS: SPIRONOLACTONE 25 MG TAB PO SCH (16:59)
[2018-09-28] MEDS: OLANZapine ODT 10 MG TAB PO SCH (20:43)
[2018-09-28] MEDS: ATORVASTATIN 20 MG TAB PO SCH (20:43)
[2018-09-28 20:56] LABS: Glucose,Whole Blood 215 mg/dL (75-99)
[2018-09-28] MEDS: AZITHROMYCIN 500 MG TAB PO SCH (23:26)
[2018-09-29] MEDS: IPRATROPIUM-ALBUTEROL 3 ML NEB INHALATION SCH ×7 (00:18→23:57)
[2018-09-29] MEDS: PANTOPRAZOLE 40 MG TABLET PO SCH ×2 (06:26→21:06)
[2018-09-29] MEDS: methylPREDNISolone SOD SUCCI 40 MG/ML 1 ML VIAL IV SCH ×3 (06:26→21:06)
[2018-09-29 06:28] LABS: Glucose,Whole Blood 138 mg/dL (75-99)
[2018-09-29 06:39] LABS: Calcium 9.6 mg/dL (8.4-10.2); Potassium 4.9 mmol/L (3.5-5.1)
[2018-09-29] MEDS: SYMBICORT 80-4.5 MCG INHALER INHALATION SCH ×2 (08:11→19:18)
[2018-09-29] MEDS: guaiFENesin 600 MG TABLET.ER PO SCH ×2 (09:29→21:06)
[2018-09-29] MEDS: LORATADINE 10 MG TAB PO SCH (09:29)
[2018-09-29] MEDS: METOPROLOL TARTRATE 25 MG TAB PO SCH ×2 (09:29→21:06)
[2018-09-29] MEDS: DOCUSATE 100 MG CAP PO SCH ×2 (09:29→21:06)
[2018-09-29] MEDS: FUROSEMIDE 40 MG TAB PO SCH (09:29)
[2018-09-29] MEDS: SPIRONOLACTONE 25 MG TAB PO SCH (09:29)
[2018-09-29] MEDS: GABAPENTIN 300 MG CAP PO SCH ×2 (09:29→21:05)
[2018-09-29] MEDS: CYANOCOBALAMIN 500 MCG TAB PO SCH (09:29)
[2018-09-29] MEDS: CALCIUM CARB-VIT D 500MG-200UN 1 EACH TAB PO SCH ×2 (09:29→21:06)
[2018-09-29] MEDS: APIXABAN 5 MG TAB PO SCH ×2 (09:30→21:06)
[2018-09-29] MEDS: FLUTICASONE 50MCG/SPRAY NASAL 16GM EA NOSTRIL SCH (10:29)
[2018-09-29 11:29] LABS: Glucose,Whole Blood 168 mg/dL (75-99)
[2018-09-29 16:39] LABS: Glucose,Whole Blood 159 mg/dL (75-99)
--- NOTE | 2018-09-29 20:12 | PN ---
PROGRESS NOTE DATE OF SERVICE: September 28, 2018. PRESENTING COMPLAINT: Cough. INTERVAL HISTORY: Patient presented with bilateral pneumonia, atrial fibrillation, doing much better. Sitting up, tolerating a diet. Some cough is still present. Heart rate is controlled. Cardiology wishes to hold the patient back for one more day. Sitting up on a chair. REVIEW OF SYSTEMS: Done for constitutional, cardiovascular, GI, pulmonary; relevant findings as above. CURRENT MEDICATIONS: Reviewed. PHYSICAL EXAMINATION: VITAL SIGNS: On examination, temperature 97.5, pulse 82, respirations 16, blood pressure 123/75, pulse ox 94 percent on 2 L. GENERAL APPEARANCE: Sitting up in a chair, comfortable. EYES: Pupils equal. Conjunctivae normal. NECK: JVD not raised. Mass not palpable. RESPIRATORY: Effort normal. LUNGS: Occasional crackles. CARDIOVASCULAR: Heart sounds irregular. No edema. ABDOMEN: Soft, nontender. Liver and spleen not palpable. PSYCHIATRY: Alert and oriented x3. Mood and affect normal. INVESTIGATIONS: Potassium 4.9. MMODL / IJN: [id number] /
--- NOTE | 2018-09-29 20:18 | PN ---
PROGRESS NOTE DATE OF SERVICE: September 29, 2018. PRESENTING COMPLAINT: Tired. INTERVAL HISTORY: Patient presented with bilateral pneumonia, atrial fibrillation, doing much better, tolerating a diet. No new issues. I was not informed I had discharged the patient yesterday, but I was not informed by the nurse that they had held her back. I did talk to nurse Sav today. Overall, patient is doing better. Sitting up, comfortable. REVIEW OF SYSTEMS: Done for constitutional, cardiovascular, GI, pulmonary; relevant findings as above. CURRENT MEDICATIONS: Reviewed. PHYSICAL EXAMINATION: VITAL SIGNS: Temperature 97.8, pulse 93, respiratory rate 20, blood pressure 108/75, pulse ox 97% on room air. GENERAL APPEARANCE: Sitting up in a chair. Comfortable. EYES: Pupils equal. Conjunctivae normal. NECK: JVD not raised. Mass not palpable. RESPIRATORY: Effort normal. LUNGS: Fair air entry. CARDIOVASCULAR: Heart sounds irregular. No edema. ABDOMEN: Soft, nontender. Liver and spleen not palpable. PSYCHIATRY: Alert and oriented x3. Mood and affect normal. INVESTIGATIONS: BUN 52, creatinine 1.40. ASSESSMENT: 1. Bilateral pneumonia suspect gram-negative organism. Much improved. 2. 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 3. Obesity; BMI 31.5. 4. Acute chronic obstructive pulmonary disease exacerbation in an ex-smoker. 5. Essential hypertension. 6. Hyperlipidemia. 7. Persistent atrial fibrillation on Eliquis. 8. Moderate tricuspid regurgitation, nonrheumatic. 9. Secondary moderate pulmonary hypertension due to underlying chronic obstructive pulmonary disease. PLAN: Patient is stable. Prognosis is guarded for her age. Ready for patient to get discharged. MMODL / IJN: [id number] /
[2018-09-29 20:50] LABS: Glucose,Whole Blood 149 mg/dL (75-99)
[2018-09-29] MEDS: ATORVASTATIN 20 MG TAB PO SCH (21:06)
[2018-09-29] MEDS: OLANZapine ODT 10 MG TAB PO SCH (21:14)
[2018-09-30] MEDS: IPRATROPIUM-ALBUTEROL 3 ML NEB INHALATION SCH ×3 (04:07→11:47)
[2018-09-30] MEDS: methylPREDNISolone SOD SUCCI 40 MG/ML 1 ML VIAL IV SCH ×2 (05:48→07:53)
[2018-09-30] MEDS: PANTOPRAZOLE 40 MG TABLET PO SCH (05:48)
[2018-09-30 06:33] LABS: Calcium 9.6 mg/dL (8.4-10.2)
[2018-09-30] MEDS: SYMBICORT 80-4.5 MCG INHALER INHALATION SCH (07:42)
--- NOTE | 2018-09-30 08:00 | XR ---
EXAMINATION TYPE: XR chest 2V DATE OF EXAM: 09/30/2018 COMPARISON: 09/25/2018 HISTORY: 83-year-old female pneumonia TECHNIQUE: AP and lateral views FINDINGS: Heart mildly enlarged. Diffuse interstitial prominence and hyperinflation. Some increased patchy left basilar opacity. Similar focal eventration posterior hemidiaphragm on the lateral view. No sizable p leural effusion. IMPRESSION: 1. Cardiomegaly. 2. COPD. 3. Increased patchy atelectasis versus infiltrate peripheral left base.
[2018-09-30] MEDS: APIXABAN 5 MG TAB PO SCH (08:01)
[2018-09-30] MEDS: DOCUSATE 100 MG CAP PO SCH (08:01)
[2018-09-30] MEDS: CALCIUM CARB-VIT D 500MG-200UN 1 EACH TAB PO SCH (08:01)
[2018-09-30] MEDS: GABAPENTIN 300 MG CAP PO SCH (08:01)
[2018-09-30] MEDS: FUROSEMIDE 40 MG TAB PO SCH (08:01)
[2018-09-30] MEDS: LORATADINE 10 MG TAB PO SCH (08:01)
[2018-09-30] MEDS: METOPROLOL TARTRATE 25 MG TAB PO SCH (09:17)
[2018-09-30] MEDS: guaiFENesin 600 MG TABLET.ER PO SCH (09:17)
[2018-09-30] MEDS: FLUTICASONE 50MCG/SPRAY NASAL 16GM EA NOSTRIL SCH (09:17)
[2018-09-30] MEDS: CYANOCOBALAMIN 500 MCG TAB PO SCH (09:17)
[2018-09-30] MEDS: SPIRONOLACTONE 25 MG TAB PO SCH (09:18)
[2018-09-30 11:40] LABS: Glucose,Whole Blood 145 mg/dL (75-99)
[2018-09-30 12:37] VITALS: BP 131/69; PULSE 79; RESP 18; TEMP 97.4
[2018-09-30] MEDS ORDERED: predniSONE 10 MG TAB PO STA (13:38)
[2018-09-30] MEDS ORDERED: cloNIDine 0.2 MG/24HR PATCH TRANSDERM SCH (15:00)
--- NOTE | 2018-09-30 22:31 | DS ---
DISCHARGE SUMMARY DATE OF ADMISSION: 09/24/2018. DATE OF DISCHARGE: September 30, 2018. FINAL DIAGNOSES: 1. Bilateral pneumonia suspect gram-negative organism, present on admission. 2. 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 3. Obesity; BMI 31.5. 4. Acute chronic obstructive pulmonary disease exacerbation in an ex-smoker. 5. Essential hypertension. 6. Hyperlipidemia. 7. Persistent atrial fibrillation on Eliquis. 8. Moderate tricuspid regurgitation, nonrheumatic. 9. Secondary moderate pulmonary hypertension due to chronic obstructive pulmonary disease. HOSPITAL COURSE: This patient presented with short of breath, cough found to be in atrial fibrillation, uncontrolled rate was better controlled. Also treated for pneumonia. Respiratory symptoms were much improved by the time of discharge. Patient tolerating a diet. PHYSICAL EXAMINATION: VITAL SIGNS: Temperature 97.4, pulse respiratory 18, blood pressure 130/69 pulse ox 96% on room air. LUNGS: Occasional crackles. INVESTIGATIONS: BUN 54, creatinine 1.48. CONSULTATION: Dr. Jerry Heard from Cardiology. DISCHARGE MEDICATIONS: 1. Tylenol 650 mg b.i.d. 2. Calcium 600 vitamin D3 400 1 tab p.o. b.i.d. 3. Colace 100 mg b.i.d. 4. Flonase 1 spray each nostril daily. 5. Advair 250/50 one puff b.i.d. 6. Neurontin 300 mg p.o. b.i.d. 7. Claritin 10 mg p.o. daily. 8. Centrum Silver 1 tablet p.o. daily. 9. Prilosec 20 mg b.i.d. 10.MiraLAX 17 grams p.o. daily. 11.Phenergan 12.5 p.o. q.12h p.r.n. 12.Eliquis 5 mg p.o. b.i.d. 13.DuoNeb q.i.d. q.h.s. 14.Tessalon Perles 100 mg p.o. t.i.d. p.r.n. 15.Dulcolax 10 mg rectally daily p.r.n. 16.Pulmicort 0.5 mg q.i.d. 17.Vitamin B12 1000 mcg p.o. daily. 18.Methadone 6 mg p.o. daily. 19.Lomotil 1 tablet p.o. q.4 p.r.n. 20.Iron 324 p.o. daily. 21.Lasix 20 mg p.o. daily. 22. 325 mg rectal q.12h p.r.n. 23.Olanzapine 20 mg p.o. q.h.s. 24.Ultram 50 mg t.i.d. p.r.n. 25.Ceftin 500 mg p.o. b.i.d. for 6 tablets. 26.Lopressor 25 mg b.i.d. 27.Mucinex 200 mg p.o. b.i.d. 28.Prednisone taper Aldactone 25 mg a day. FOLLOWUP: With [facility] 1 week. Follow up with Visiting Physician, Dr. Beth in 2 days, DISPOSITION: [facility]. Copy to visiting physician Dr. Beth. MMODL / ZULEIKAN: [id number] /
--- NOTE | 2018-10-02 11:23 | CDI ---
Documentation Clarification Form Date: 10/02/2018 10:12:00 AM From: Nancie Saavedra Alexandra Salmon, Production Control Clerk Hours-8:30 am & 5 pm MJosselyn Admit Date: 09/24/2018 10:34:00 PM Patient Name: Sissy Tsai Visit Number: [id number] Discharge Date: 09/30/2018 2:40:00 PM ATTENTION: The Clinical Documentation Specialists (CDI) and [facility] Coding Staff appreciate your assistance in clarifying documentation. Please respond to the clarification below the line at the bottom and electronically sign. The CDI & [facility] Coding staff will review the response and follow-up if needed. Please note: Queries are made part of the Legal Health Record. If you have any questions, please contact the author of this message via ITS. Dr. Vega Michael CHF is documented in the ED Note. History/Risk Factors: HTN, Afib, PLM HTN, Obesity BNP: 1310 Echocardiogram Results: EF 55-60 Chest X Ray: Heart failure new compared to last study Treatment: IV Lasix, Increase in PO Lasix (home PO Lasix 20mg) In your professional opinion, can you please clarify the acuity and type of CHF if known? Systolic Heart Failure: Acute Chronic Acute on Chronic Diastolic Heart Failure: Acute Chronic Acute on Chronic Systolic & Diastolic Heart Failure: Acute Chronic Acute on Chronic systolic & diastolic Heart Failure Unable to Determine Other, please specify No CHF present MTDD
== END 2018-09-30 14:40 | disposition home or self-care (01) | DRG 178 ==
LOC: EC 18:03 → 3SCARD 22:34
PROVIDERS: ADMIT Hospitalist; ATTEND Hospitalist
DX: J15.6 Pneumonia due to other Gram-negative bacteria (principal); N17.9 Acute kidney failure, unspecified; I48.1 Persistent atrial fibrillation; J44.1 Chronic obstructive pulmonary disease with (acute) exacerbation; J44.0 Chronic obstructive pulmonary disease with (acute) lower respiratory infection; I27.20 Pulmonary hypertension, unspecified; F20.9 Schizophrenia, unspecified; I07.1 Rheumatic tricuspid insufficiency; N18.3 Chronic kidney disease, stage 3 (moderate); I12.9 Hypertensive chronic kidney disease with stage 1 through stage 4 chronic kidney disease, or unspecified chronic kidney disease; E78.5 Hyperlipidemia, unspecified; M19.90 Unspecified osteoarthritis, unspecified site; Z68.31 Body mass index [BMI] 31.0-31.9, adult; E66.9 Obesity, unspecified; Z79.899 Other long term (current) drug therapy; Z79.01 Long term (current) use of anticoagulants; Z86.73 Personal history of transient ischemic attack (TIA), and cerebral infarction without residual deficits; Z85.3 Personal history of malignant neoplasm of breast; Z85.038 Personal history of other malignant neoplasm of large intestine; Z90.13 Acquired absence of bilateral breasts and nipples; Z87.891 Personal history of nicotine dependence
CPT/HCPCS: 36415; 71046; 80048; 80053; 83605; 83880; 84484; 85025; 85379; 85610; 85730; 87040; 87502; 93005; 93306; 94640; 94760; 96365; 96366; 96368; 96375; 96376; 99285

== ENCOUNTER 2019-04-02 12:20 | Inpatient (IN) | payer MEDICARE, BC ==
[2019-04-02] MEDS ORDERED: IPRATROPIUM-ALBUTEROL 3 ML NEB INHALATION STA (12:26)
--- NOTE | 2019-04-02 12:29 | ED ---
General Adult HPI - General Stated complaint: Weakness Time Seen by Provider: 04/02/19 12:21 Source: patient, EMS, RN notes reviewed Mode of arrival: EMS Limitations: altered mental status, physical limitation - History of Present Illness Initial comments: Patient is a pleasant 84-year-old female presenting to the emergency Department with complaints of generalized weakness and shortness of breath. Patient is an 4 historian and majority of history comes to EMS. Symptoms have progressively the past few days. Patient had difficulty transferring today. Patient amiss to coughing and difficulty breathing. Unclear if cough is nonproductive. No reported fevers. Patient does live at the home care facility. - Related Data Home Medications Medication Instructions Recorded Confirmed Acetaminophen [Tylenol] 650 mg PO BID@0800,199907/25/17 04/02/19 Calcium Carbonate/Vitamin D3 1 tab PO BID@0800,199907/25/17 04/02/19 [Calcium 600-Vit D3 400 Tablet] Docusate [Colace] 100 mg PO BID@0800,199907/25/17 04/02/19 Fluticasone Nasal [place] [Flonase 1 spray EA NOSTRIL DAILY@0800 07/25/17 04/02/19 Nasal [place]] Fluticasone/Salmeterol [Advair 1 puff INHALATION RT-BID@0800,199907/25/17 04/02/19 250-50 Diskus] Gabapentin [Neurontin] 300 mg PO BID@0800,199907/25/17 04/02/19 Loratadine [Claritin] 10 mg PO DAILY@0800 07/25/17 04/02/19 Multivit-Min/FA/Lycopen/Lutein 1 tab PO DAILY@0800 07/25/17 04/02/19 [Centrum Silver Tablet] Omeprazole [PriLOSEC] 20 mg PO BID@0600,199907/25/17 04/02/19 Polyethylene Glycol 3350 [Miralax] 17 gm PO DAILY@0800 07/25/17 04/02/19 Promethazine [Phenergan] 12.5 mg PO Q12H PRN 07/25/17 04/02/19 Benzonatate [Tessalon Perles] 100 mg PO TID PRN 09/24/18 04/02/19 Bisacodyl [Dulcolax] 10 mg RECTAL DAILY PRN 09/24/18 04/02/19 Budesonide [Pulmicort] 0.5 mg INHALATION RT-BID 09/24/18 04/02/19 Cyanocobalamin (Vitamin B-12) 1,000 mcg PO DAILY 09/24/18 04/02/19 [Vitamin B-12] Diphenox-Atrop 2.5-0.025 mg 1 tab PO Q4H PRN 09/24/18 04/02/19 [Lomotil] Ferrous Gluconate 324 mg PO DAILY@0800 09/24/18 04/02/19 Furosemide [Lasix] 20 mg PO DAILY@0800 09/24/18 04/02/19 Hydrocortisone Acetate [Anucort-Hc] 25 mg RECTAL Q12H PRN 09/24/18 04/02/19 OLANZapine [OLANZapine Odt] 20 mg PO HS@199909/24/18 04/02/19 Docusate [Colace] 100 mg PO BID 04/02/19 04/02/19 Ipratropium-Albuterol Nebulize 3 ml INHALATION RT-TID 04/02/19 04/02/19 [Duoneb 0.5 mg-3 mg/3 ml Soln] Menthol [Biofreeze] 1 applic TOPICAL QID PRN 04/02/19 04/02/19 Simvastatin [Zocor] 20 mg PO DAILY 04/02/19 04/02/19 Spironolactone [Aldactone] 25 mg PO Q48H 04/02/19 04/02/19 Previous Rx's Medication Instructions Recorded Apixaban [Eliquis] 5 mg PO BID@799,1999 #0 08/10/17 Metoprolol Tartrate [Lopressor] 25 mg PO BID #60 tab 09/28/18 guaiFENesin [Mucinex] 1,200 mg PO BID@08,1999 #0 09/28/18 Allergies Allergy/AdvReac Type Severity Reaction Status Date / Time No Known Allergies Allergy Verified 04/02/19 12:30 Review of Systems ROS Statement: Those systems with pertinent positive or pertinent negative responses have been documented in the HPI. ROS Other: All systems not noted in ROS Statement are negative. Constitutional: Denies: fever Eyes: Denies: eye pain ENT: Denies: ear pain Respiratory: Reports: cough, dyspnea Cardiovascular: Denies: chest pain Endocrine: Reports: fatigue Gastrointestinal: Denies: abdominal pain Genitourinary: Denies: dysuria Musculoskeletal: Denies: back pain Skin: Denies: rash Neurological: Reports: weakness (General weakness) Past Medical History Past Medical History: Cancer, COPD, CVA/TIA, Hyperlipidemia, Hypertension Additional Past Medical History / Comment(s): colon & breast CA Last Myocardial Infarction Date:: unk History of Any Multi-Drug Resistant Organisms: None Reported Past Surgical History: Breast Surgery Additional Past Surgical History / Comment(s): double mastectomy Past Anesthesia/Blood Transfusion Reactions: No Reported Reaction Past Psychological History: Schizophrenia Additional Psychological History / Comment(s): pt stated she lives in a fdc apt but can't rememebr name of it Smoking Status: Former smoker Past Alcohol Use History: None Reported Additional Past Alcohol Use History / Comment(s): started smoking in her 20's and quit at age 51, also quit drinking at age 51(went to ) Past Drug Use History: None Reported - Past Family History Mother Additional Family Medical History / Comment(s): "back problems' Father History Unknown: Yes General Exam Limitations: altered mental status, physical limitation General appearance: alert, in no apparent distress Head exam: Present: atraumatic Eye exam: Present: normal appearance Neck exam: Present: normal inspection Respiratory exam: Present: respiratory distress, rales Cardiovascular Exam: Present: regular rate, normal rhythm GI/Abdominal exam: Present: soft. Absent: tenderness Extremities exam: Present: normal inspection. Absent: pedal edema, calf tender ness Back exam: Present: normal inspection Neurological exam: Present: alert. Absent: motor sensory deficit Psychiatric exam: Present: normal affect, normal mood Skin exam: Present: normal color Course Vital Signs 04/02/19 04/02/19 04/02/19 12:26 12:42 12:51 Temperature Pulse Rate 88 91 87 Respiratory 18 Rate Blood Pressure 126/62 O2 Sat by Pulse 98 Oximetry 04/02/19 15:00 Temperature 102 F H Pulse Rate 105 H Respiratory 21 Rate Blood Pressure 156/89 O2 Sat by Pulse 95 Oximetry EKG Findings - EKG Comments: EKG Findings:: A. fib with rate of 85. QRS 86. QT 358. QTC 426. Normal axis. Low QRS voltage. Poor R progression. No acute ST change. Medical Decision Making - Medical Decision Making Patient reevaluated without significant improvement. Patient has developed fever. Chest x-ray is unclear for potential infectious versus CHF process. Fever makes infectious process more likely. Patient does meet sepsis criteria diagnosed at 1535. Blood culture and lactic acid have been ordered. IV antibiotic's will be added. Case was discussed in detail with Dr. Jalloh, who will admit covering for Dr. Zambrano. - Lab Data Result diagrams: 04/02/19 13:11 04/02/19 13:11 Lab Results 04/02/19 04/02/19 04/02/19 Range/Units 13:11 13:11 13:11 WBC 10.3 (3.8-10.6) k/uL RBC 4.44 (3.80-5.40) m/uL Hgb 13.6 (11.4-16.0) gm/dL Hct 41.6 (34.0-46.0) % MCV 93.8 (80.0-100.0) fL MCH 30.6 (25.0-35.0) pg MCHC 32.6 (31.0-37.0) g/dL RDW 15.1 (11.5-15.5) % Plt Count 184 (150-450) k/uL Neutrophils % 81 % Lymphocytes % 8 % Monocytes % 8 % Eosinophils % 1 % Basophils % 0 % Neutrophils # 8.3 H (1.3-7.7) k/uL Lymphocytes # 0.8 L (1.0-4.8) k/uL Monocytes # 0.8 (0-1.0) k/uL Eosinophils # 0.1 (0-0.7) k/uL Basophils # 0.0 (0-0.2) k/uL PT (9.0-12.0) sec INR (<1.2) APTT (22.0-30.0) sec Sodium 140 (137-145) mmol/L Potassium 4.7 (3.5-5.1) mmol/L Chloride 104 (98-107) mmol/L Carbon Dioxide 25 (22-30) mmol/L Anion Gap 11 mmol/L BUN 24 H (7-17) mg/dL Creatinine 1.55 H (0.52-1.04) mg/dL Est GFR (CKD-EPI)AfAm 36 (>60 ml/min/1.73 sqM) Est GFR (CKD-EPI)NonAf 31 (>60 ml/min/1.73 sqM) Glucose 97 (74-99) mg/dL Plasma Lactic Acid Miguel 1.6 (0.7-2.0) mmol/L Calcium 9.9 (8.4-10.2) mg/dL Total Bilirubin 0.8 (0.2-1.3) mg/dL AST 22 (14-36) U/L ALT 22 (9-52) U/L Alkaline Phosphatase 76 (38-126) U/L NT-Pro-B Natriuret Pep pg/mL Total Protein 7.0 (6.3-8.2) g/dL Albumin 4.2 (3.5-5.0) g/dL 04/02/19 04/02/19 Range/Units 13:11 14:37 WBC (3.8-10.6) k/uL RBC (3.80-5.40) m/uL Hgb (11.4-16.0) gm/dL Hct (34.0-46.0) % MCV (80.0-100.0) fL MCH (25.0-35.0) pg MCHC (31.0-37.0) g/dL RDW (11.5-15.5) % Plt Count (150-450) k/uL Neutrophils % % Lymphocytes % % Monocytes % % Eosinophils % % Basophils % % Neutrophils # (1.3-7.7) k/uL Lymphocytes # (1.0-4.8) k/uL Monocytes # (0-1.0) k/uL Eosinophils # (0-0.7) k/uL Basophils # (0-0.2) k/uL PT 10.4 (9.0-12.0) sec INR 1.0 (<1.2) APTT 26.5 (22.0-30.0) sec Sodium (137-145) mmol/L Potassium (3.5-5.1) mmol/L Chloride (98-107) mmol/L Carbon Dioxide (22-30) mmol/L Anion Gap mmol/L BUN (7-17) mg/dL Creatinine (0.52-1.04) mg/dL Est GFR (CKD-EPI)AfAm (>60 ml/min/1.73 sqM) Est GFR (CKD-EPI)NonAf (>60 ml/min/1.73 sqM) Glucose (74-99) mg/dL Plasma Lactic Acid Miguel (0.7-2.0) mmol/L Calcium (8.4-10.2) mg/dL Total Bilirubin (0.2-1.3) mg/dL AST (14-36) U/L ALT (9-52) U/L Alkaline Phosphatase (38-126) U/L NT-Pro-B Natriuret Pep 3080 pg/mL Total Protein (6.3-8.2) g/dL Albumin (3.5-5.0) g/dL - Radiology Data Radiology results: image reviewed (Chest x-ray shows interstitial prominence that could be related to fluid overload or atypical pneumonia.) Critical Care Time Critical Care Time: Yes Total Critical Care Time: 32 Disposition Clinical Impression: Pneumonia, Sepsis Disposition: ADMITTED IP TO THIS HOSP Is patient prescribed a controlled substance at d/c from ED?: No Referrals: Dillon Beth MD [Primary Care Provider] - 1-2 days Decision Time: 15:40
[2019-04-02 13:35] LABS: Albumin 4.2 g/dL (3.5-5.0); Calcium 9.9 mg/dL (8.4-10.2); Potassium 4.7 mmol/L (3.5-5.1); Total Bilirubin 0.8 mg/dL (0.2-1.3)
--- NOTE | 2019-04-02 13:35 | XR ---
EXAMINATION TYPE: XR chest 2V DATE OF EXAM: 04/02/2019 COMPARISON: 09/30/2018 HISTORY: Fever TECHNIQUE: Frontal and lateral views of the chest are obtained. FINDINGS: There is increased interstitial prominence throughout in comparison to the prior. There is chronic eventration of left hemidiaphragm with possible focal diaphragmatic herniation of the household refrigeration mechanic ior medial left hemidiaphragm. Eventration is also noted on the right. Cardiomediastinal silhouette i s enlarged but similar to the prior. No new focal consolidation, pleural effusion or pneumothorax. Os seous demineralization is seen throughout. IMPRESSION: Increased interstitial prominence in comparison the prior that can be seen and fluid ove rload or atypical pneumonia.
[2019-04-02 13:41] LABS: Partial Thromboplastin Time 26.5 sec (22.0-30.0); Prothrombin Time 10.4 sec (9.0-12.0)
[2019-04-02 14:07] LABS: Basophils % (A) 0 %; Eosinophils # (A) 0.1 k/uL (0-0.7); Eosinophils % (A) 1 %; HCT 41.6 % (34.0-46.0); HGB 13.6 gm/dL (11.4-16.0); Lymphocytes # (A) 0.8 k/uL (1.0-4.8); Lymphocytes % (A) 8 %; MCH 30.6 pg (25.0-35.0); MCHC 32.6 g/dL (31.0-37.0); MCV 93.8 fL (80.0-100.0); Mean Platelet Volume 7.9; Monocytes # (A) 0.8 k/uL (0-1.0); Monocytes % (A) 8 %; Neutrophils # (A) 8.3 k/uL (1.3-7.7); Neutrophils % (A) 81 %; Platelet Count 184 k/uL (150-450); RBC 4.44 m/uL (3.80-5.40); RDW 15.1 % (11.5-15.5); WBC 10.3 k/uL (3.8-10.6)
[2019-04-02] MEDS ORDERED: ACETAMINOPHEN TAB 500 MG TAB PO STA (15:38)
[2019-04-02] MEDS ORDERED: PIPERACILLIN-TAZOBACTAM 3.375 GM in SODIUM CHLORIDE 0.9% 100 ML IVPB STA (15:40)
[2019-04-02] MEDS ORDERED: LEVOFLOXACIN 750MG-D5W PMX 750 MG in DEXTROSE/WATER 1 150ML.BAG IVPB STA (15:40)
[2019-04-02] MEDS ORDERED: PNEUMONIA PROTOCOL UTILIZED 1 EACH MISC PO PRN (15:40)
[2019-04-02] MEDS: IPRATROPIUM-ALBUTEROL 3 ML NEB INHALATION SCH ×2 (20:16→20:54)
[2019-04-02] MEDS: BUDESONIDE 0.5 MG/2 ML NEBU INHALATION SCH (20:54)
[2019-04-02] MEDS: ACETAMINOPHEN TAB 325 MG TAB PO SCH (21:38)
[2019-04-02] MEDS: CALCIUM CARB-VIT D 500MG-200UN 1 EACH TAB PO SCH (21:39)
[2019-04-02] MEDS: PANTOPRAZOLE 40 MG TABLET PO SCH (21:39)
[2019-04-02] MEDS: GABAPENTIN 300 MG CAP PO SCH (21:39)
[2019-04-02] MEDS: APIXABAN 5 MG TAB PO SCH (21:39)
[2019-04-02] MEDS: METOPROLOL TARTRATE 25 MG TAB PO SCH (21:39)
[2019-04-02] MEDS: OLANZapine ODT 10 MG TAB PO SCH (21:40)
[2019-04-03] MEDS: PIPERACILLIN-TAZOBACTAM 3.375 GM in SODIUM CHLORIDE 0.9% 100 ML IVPB SCH ×4 (00:49→23:36)
[2019-04-03] MEDS: IPRATROPIUM-ALBUTEROL 3 ML NEB INHALATION PRN (05:05)
[2019-04-03] MEDS: PANTOPRAZOLE 40 MG TABLET PO SCH ×2 (05:49→21:50)
[2019-04-03] MEDS: SODIUM CHLORIDE 0.9% 1,000 ML IV SCH ×4 (07:03→23:37)
[2019-04-03 07:30] LABS: Appearance,Urine Clear (Clear); Bilirubin,Urine Negative (Negative); Blood,Urine Negative (Negative); Color,Urine Yellow; Glucose,Urine (UA) Negative (Negative); Ketones,Urine Negative (Negative); Leukocyte Esterase,Urine Negative (Negative); Nitrite,Urine Negative (Negative); PH, Urine 5.5 (5.0-8.0); Protein,Urine Trace (Negative); Specific Gravity,Urine 1.024 (1.001-1.035); Urobilinogen,Urine <2.0 mg/dL (<2.0)
--- NOTE | 2019-04-03 07:43 | P.CNPUL ---
History of Present Illness Consult date: 04/02/19 Reason for consult: dyspnea History of present illness: 84-year-old female patient presented to the ED because of generalized weakness and worsening shortness of breath. Her symptoms were progressively getting worse over the past few days. She got moved to the hospital and the patient was also having increased cough along with some shortness of breath. No fever. No aspiration. The patient lives of a shelter facility. Her white cell count of 10.3. Creatinine is at 1.5 and the rest of the electrolytes all within normal limits. The proBNP level was 3080. Chest x-ray is showing increased interstitial prominence bilaterally along with some limitation of the right hemidiaphragm. There is also cardiomegaly. This patient has history of breast and colon cancer as well as hypertension. She has been in our hospital back in 2018 for sepsis secondary to right lower lobe pneumonia and acute small bowel obstruction and acute urinary tract infection. At that time she also had A. fib/RVR complicating her picture. She is known to have COPD, previous history of CVA/TIA, hypertension and hyperlipidemia and addition to colon and breast cancer and the patient undergone double mastectomy. She does have some baseline schizophrenia. She has previous history of smoking and she is currently in remission. Subsequently she was adm itted to the hospital back in 2018 for shortness of breath and bilateral pneumonia and atrial fibrillation with rapid ventricular response. She has a preserved LV function from August 2018 indicating an ejection fraction of 55- 60% and there is moderate pulmonary hypertension with a PA pressure of 66. The patient had mild aortic sclerosis mild mitral regurgitation and moderate tricuspid regurgitation. Review of Systems A 14 point review of system is hard to obtain as the patient is a poor historian. It is positive for shortness of breath as reported in the history of present illness. No angina. No palpitation. Past Medical History Past Medical History: Cancer, COPD, CVA/TIA, Hyperlipidemia, Hypertension Additional Past Medical History / Comment(s): colon & breast CA and the patient is post bilateral mastectomy, hypertension, hyperlipidemia, CVA, COPD, chronic atrial fibrillation, chronic kidney disease stage III, previous history of small bowel obstruction related to abdominal adhesions that was released surgically Last Myocardial Infarction Date:: unk History of Any Multi-Drug Resistant Organisms: None Reported Past Surgical History: Breast Surgery Additional Past Surgical History / Comment(s): double mastectomy, expiratory laparotomy and release of small bowel obstruction Past Anesthesia/Blood Transfusion Reactions: No Reported Reaction Past Psychological History: Schizophrenia Additional Psychological History / Comment(s): pt stated she lives in a residential apt but can't rememebr name of it Smoking Status: Former smoker Past Alcohol Use History: None Reported Additional Past Alcohol Use History / Comment(s): started smoking in her 20's and quit at age 51, also quit drinking at age 51(went to [facility]) Past Drug Use History: None Reported - Past Family History Mother Additional Family Medical History / Comment(s): "back problems', unable to take a family history from this patient who happens to be a very poor historian Father History Unknown: Yes Medications and Allergies Home Medications Medication Instructions Recorded Confirmed Type Acetaminophen [Tylenol] 650 mg PO BID@0800,199907/25/17 04/02/19 History Calcium Carbonate/Vitamin D3 1 tab PO BID@0800,199907/25/17 04/02/19 History [Calcium 600-Vit D3 400 Tablet] Docusate [Colace] 100 mg PO BID@0800,199907/25/17 04/02/19 History Fluticasone Nasal [place] [Flonase 1 spray EA NOSTRIL DAILY@0800 07/25/17 04/02/19 History Nasal [place]] Fluticasone/Salmeterol [Advair 1 puff INHALATION RT-BID@08,199907/25/17 04/02/19 History 250-50 Diskus] Gabapentin [Neurontin] 300 mg PO BID@0800,199907/25/17 04/02/19 History Loratadine [Claritin] 10 mg PO DAILY@0800 07/25/17 04/02/19 History Multivit-Min/FA/Lycopen/Lutein 1 tab PO DAILY@0800 07/25/17 04/02/19 History [Centrum Silver Tablet] Omeprazole [PriLOSEC] 20 mg PO BID@0600,199907/25/17 04/02/19 History Polyethylene Glycol 3350 [Miralax] 17 gm PO DAILY@0800 07/25/17 04/02/19 History Promethazine [Phenergan] 12.5 mg PO Q12H PRN 07/25/17 04/02/19 History Apixaban [Eliquis] 5 mg PO BID@08,1999 #0 08/10/17 04/02/19 Rx Benzonatate [Tessalon Perles] 100 mg PO TID PRN 09/24/18 04/02/19 History Bisacodyl [Dulcolax] 10 mg RECTAL DAILY PRN 09/24/18 04/02/19 History Budesonide [Pulmicort] 0.5 mg INHALATION RT-BID 09/24/18 04/02/19 History Cyanocobalamin (Vitamin B-12) 1,000 mcg PO DAILY 09/24/18 04/02/19 History [Vitamin B-12] Diphenox-Atrop 2.5-0.025 mg 1 tab PO Q4H PRN 09/24/18 04/02/19 History [Lomotil] Ferrous Gluconate 324 mg PO DAILY@79909/24/18 04/02/19 History Furosemide [Lasix] 20 mg PO DAILY@79909/24/18 04/02/19 History Hydrocortisone Acetate [Anucort-Hc] 25 mg RECTAL Q12H PRN 09/24/18 04/02/19 History OLANZapine [OLANZapine Odt] 20 mg PO HS@199909/24/18 04/02/19 History Metoprolol Tartrate [Lopressor] 25 mg PO BID #60 tab 09/28/18 04/02/19 Rx guaiFENesin [Mucinex] 1,200 mg PO BID@ #0 09/28/18 04/02/19 Rx Docusate [Colace] 100 mg PO BID 04/02/19 04/02/19 History Ipratropium-Albuterol Nebulize 3 ml INHALATION RT-TID 04/02/19 04/02/19 History [Duoneb 0.5 mg-3 mg/3 ml Soln] Menthol [Biofreeze] 1 applic TOPICAL QID PRN 04/02/19 04/02/19 History Simvastatin [Zocor] 20 mg PO DAILY 04/02/19 04/02/19 History Spironolactone [Aldactone] 25 mg PO Q48H 04/02/19 04/02/19 History Allergies Allergy/AdvReac Type Severity Reaction Status Date / Time No Known Allergies Allergy Verified 04/02/19 12:30 Physical Exam Vitals: Vital Signs Temp Pulse Resp BP Pulse Ox 04/02/19 17:57 105 H 17 04/02/19 17:06 124/55 04/02/19 17:05 99.7 F H 118 H 18 94 L 04/02/19 15:39 19 95 04/02/19 15:00 102 F H 105 H 21 156/89 95 04/02/19 12:51 87 04/02/19 12:42 91 04/02/19 12:26 88 18 126/62 98 Intake and Output 04/02/19 04/02/19 04/02/19 06:59 14:59 22:59 Other: Weight 81.647 kg GENERAL: 83-year-old female in no acute distress at the time of my examination Head exam was generally normal. There was no scleral icterus or corneal arcus. Mucous membranes were moist. Neck was supple and without jugular venous distension, thyromegaly, or carotid bruits. Carotids were easily palpable bilaterally. There was no adenopathy. HEART EXAMINATION: Heart S1 and S2 irregularly irregular a systolic murmur is heard. CHEST EXAMINATION: Lungs reveal fine crackles to bilateral bases. ABDOMEN: Abdominal exam revealed normal bowel sounds. The abdomen was soft, non-tender, and without masses, organomegaly, or appreciable enlargement of the abdominal aorta. EXTREMITIES: 2+ peripheral pulses with evidence of peripheral edema and no calf tenderness noted. NEUROLOGIC patient is awake, alert and oriented 2 . Results - Laboratory Findings CBC and BMP: 04/02/19 13:11 04/02/19 13:11 PT/INR, D-dimer PT 10.4 sec (9.0-12.0) 04/02/19 13:11 INR 1.0 (<1.2) 04/02/19 13:11 Abnormal lab findings: Abnormal Labs 04/02/19 04/02/19 13:11 13:11 Neutrophils # 8.3 H Lymphocytes # 0.8 L BUN 24 H Creatinine 1.55 H - Diagnostic Findings Chest x-ray: image reviewed Assessment and Plan Plan: 1 acute hypoxic respiratory failure secondary to bilateral lower lobe pneumonia . Consider aspiration 2 COPD 3 chronic atrial fibrillation 4 chronic stage III kidney disease 5 hypertension 6 hyperlipidemia 7 history of breast cancer with a previous lateral meniscectomy 8 history of colon cancer 9 history of small bowel obstruction requiring surgical release of adhesions back in 2018 10 questionable history of schizophrenia Plan Cover this patient with a combination of Zosyn and Levaquin. Monitor the fever pattern. Sputum Gram stain and culture. Blood culture. Resume long-term anti coagulation with Eliquis. FU CXR in am and restart bronchodilators.
[2019-04-03] MEDS: IPRATROPIUM-ALBUTEROL 3 ML NEB INHALATION SCH ×3 (07:56→21:02)
[2019-04-03] MEDS: BUDESONIDE 0.5 MG/2 ML NEBU INHALATION SCH (07:56)
[2019-04-03] MEDS: GABAPENTIN 300 MG CAP PO SCH ×2 (08:44→21:45)
[2019-04-03] MEDS: CALCIUM CARB-VIT D 500MG-200UN 1 EACH TAB PO SCH ×2 (08:44→21:43)
[2019-04-03] MEDS: ACETAMINOPHEN TAB 325 MG TAB PO SCH ×2 (08:44→21:41)
[2019-04-03] MEDS: METOPROLOL TARTRATE 25 MG TAB PO SCH ×2 (08:45→21:47)
[2019-04-03] MEDS: ATORVASTATIN 10 MG TAB PO SCH (08:45)
[2019-04-03] MEDS: APIXABAN 5 MG TAB PO SCH ×2 (08:45→22:20)
[2019-04-03] MEDS: BENZONATATE 100 MG CAP PO PRN (08:47)
--- NOTE | 2019-04-03 10:11 | XR ---
EXAMINATION TYPE: XR chest 2V DATE OF EXAM: 04/03/2019 COMPARISON: 04/02/2019 INDICATION: Pneumonia, cough TECHNIQUE: Frontal and lateral views of the chest are obtained. FINDINGS: The heart size is mildly prominent. The pulmonary vasculature is prominent. No suspicious focal consolidations are evident. Some mild increased linear markings are present.. IMPRESSION: 1. Clinical correlation recommended for early congestive heart failure. Findings are worsening from c omparison.
[2019-04-03] MEDS ORDERED: DIPHENOX-ATROP 2.5-0.025 MG 1 EACH TAB PO PRN (10:18)
[2019-04-03] MEDS ORDERED: BISACODYL 10 MG SUPP RECTAL PRN (10:18)
[2019-04-03] MEDS ORDERED: PROMETHAZINE 25 MG TAB PO PRN (10:18)
[2019-04-03] MEDS ORDERED: HYDROCORTISONE SUPPOSITORY 25 MG SUPP RECTAL PRN (10:18)
[2019-04-03] MEDS ORDERED: METHYL SALICYLATE/MENTHOL CREAM 5 OZ TOPICAL PRN (10:18)
[2019-04-03] MEDS: SPIRONOLACTONE 25 MG TAB PO SCH (11:48)
--- NOTE | 2019-04-03 12:50 | P.PN ---
<Marilyn Rodriguez - Last Filed: 04/03/19 12:41> Subjective Progress Note Date: 04/03/19 Principal diagnosis: Acute hypoxic respiratory failure secondary to bilateral lower lobe pneumonia. Consider aspiration. 84-year-old female patient presented to the ED because of generalized weakness and worsening shortness of breath. Her symptoms were progressively getting worse over the past few days. She got moved to the hospital and the patient was also having increased cough along with some shortness of breath. No fever. No aspiration. The patient lives of a residential facility. Her white cell count of 10.3. Creatinine is at 1.5 and the rest of the electrolytes all within normal limits. The proBNP level was 3080. Chest x-ray is showing increased interstitial prominence bilaterally along with some limitation of the right hemidiaphragm. There is also cardiomegaly. This patient has history of breast and colon cancer as well as hypertension. She has been in our hospital back in 2018 for sepsis secondary to right lower lobe pneumonia and acute small bowel obstruction and acute urinary tract infection. At that time she also had A. fib/RVR complicating her picture. She is known to have COPD, previous history of CVA/TIA, hypertension and hyperlipidemia and addition to colon and breast cancer and the patient undergone double mastectomy. She does have some baseline schizophrenia. She has previous history of smoking and she is currently in remission. Subsequently she was adm itted to the hospital back in 2018 for shortness of breath and bilateral pneumonia and atrial fibrillation with rapid ventricular response. She has a preserved LV function from August 2018 indicating an ejection fraction of 55- 60% and there is moderate pulmonary hypertension with a PA pressure of 66. The patient had mild aortic sclerosis mild mitral regurgitation and moderate tricuspid regurgitation. The patient is seen today 04/03/2019 in follow-up on the regular medical floor. She is currently awake and alert sitting up in a chair at the bedside. She is still quite congested with a loose nonproductive cough. She is maintaining O2 saturation in the mid 90s on 2 L/m per nasal cannula. She's afebrile. Urine culture pending. She is continued on DuoNeb inhalations, Tessalon Perles, Symbicort, Mucinex, antibiotics in the form of Zosyn and Levaquin. On diuretics. Chest x-ray shows pulmonary vascular congestion with increased linear markings compared to previous. Objective - Vital Signs Vital signs: Vital Signs Temp 98 F 04/03/19 12:09 Pulse 84 04/03/19 12:09 Resp 16 04/03/19 12:09 BP 93/53 04/03/19 12:09 Pulse Ox 96 04/03/19 12:09 Intake & Output 04/02/19 04/03/19 04/03/19 18:59 06:59 18:59 Intake Total 200 Output Total 1120 Balance -920 Weight 81.647 kg Intake: Intake, IV Titration 200 Amount Piperacillin-Tazobactam 3 100 .375 gm In Sodium Chloride 0.9% 100 ml @ 200 mls/hr IVPB ONCE STA Rx#:[id number] Piperacillin-Tazobactam 3 100 .375 gm In Sodium Chloride 0.9% 100 ml @ 25 mls/hr IVPB Q8HR [facility] Rx# :[id number] Output: Post Void Residual 1120 Other: Voiding Method Bedside Commode - Exam GENERAL EXAM: Alert, pleasant 84-year-old female patient, comfortable in mild respiratory distress. On 2 L nasal cannula. HEAD: Normocephalic. EYES: Normal reaction of pupils, equal size. NOSE: Clear with pink turbinates. THROAT: No erythema or exudates. NECK: No masses, no JVD. CHEST: No chest wall deformity. LUNGS: Equal air entry with bilateral scattered rhonchi, crackles in the posterior bases. CVS: S1 and S2 normal with no audible murmur, regular rhythm. ABDOMEN: No hepatosplenomegaly, normal bowel sounds, no guarding or rigidity. SPINE: No scoliosis or deformity SKIN: No rashes CENTRAL NERVOUS SYSTEM: Oriented 2. No focal deficits, tone is normal in all 4 extremities. EXTREMITIES: There is no peripheral edema. No clubbing, no cyanosis. Peripheral pulses are intact. - Labs CBC & Chem 7: 04/02/19 13:11 04/02/19 13:11 Labs: Abnormal Lab Results - Last 24 Hours (Table) 04/02/19 04/02/19 04/02/19 Range/Units 13:11 13:11 13:21 Neutrophils # 8.3 H (1.3-7.7) k/uL Lymphocytes # 0.8 L (1.0-4.8) k/uL BUN 24 H (7-17) mg/dL Creatinine 1.55 H (0.52-1.04) mg/dL Procalcitonin 0.17 H (0.02-0.09) ng/mL Urine Protein (Negative) 04/03/19 Range/Units 05:44 Neutrophils # (1.3-7.7) k/uL Lymphocytes # (1.0-4.8) k/uL BUN (7-17) mg/dL Creatinine (0.52-1.04) mg/dL Procalcitonin (0.02-0.09) ng/mL Urine Protein Trace H (Negative) Microbiology - Last 24 Hours (Table) 04/03/19 05:44 Urine Culture - Preliminary Urine,Catheterized Assessment and Plan Assessment: Impression: 1 acute hypoxic respiratory failure secondary to bilateral lower lobe pneumonia . Consider aspiration 2 COPD 3 chronic atrial fibrillation 4 chronic stage III kidney disease 5 hypertension 6 hyperlipidemia 7 history of breast cancer with a previous lateral meniscectomy 8 history of colon cancer 9 history of small bowel obstruction requiring surgical release of adhesions back in 2018 10 questionable history of schizophrenia Plan: The patient was seen and evaluated by Dr. Peacock. Chest x-ray reviewed. We'll continue the current treatment plan including DuoNeb inhalations, Symbicort, Tessalon Perles, Mucinex. Continue Zosyn and Levaquin. Add IV Solu- Medrol. Continue diuretics. Anticoagulated with Eliquis. Repeat chest x-ray in a.m. We'll continue to follow and make further recommendations based on her clinical status. I, the cosigning physician, performed a history & physical examination of the patient. Lungs sounds bilateral scattered rhonchi, crackles in the bases Maintaining good O2 saturations in the 90s on 2 L/m per nasal cannula. I discussed the assessment and plan of care with my nurse practitioner, Marilyn Rodriguez. I attest to the above note as dictated by her. <Celestine Peacock - Last Filed: 04/03/19 17:01> Objective - Vital Signs Vital signs: Vital Signs Temp 98 F 04/03/19 12:09 Pulse 84 04/03/19 12:09 Resp 16 04/03/19 12:09 BP 93/53 04/03/19 12:09 Pulse Ox 96 04/03/19 12:09 Intake & Output 04/02/19 04/03/1919 18:59 06:59 18:59 Intake Total 200 Output Total 1120 Balance -920 Weight 81.647 kg Intake: Intake, IV Titration 200 Amount Piperacillin-Tazobactam 3 100 .375 gm In Sodium Chloride 0.9% 100 ml @ 200 mls/hr IVPB ONCE STA Rx#:[id number] Piperacillin-Tazobactam 3 100 .375 gm In Sodium Chloride 0.9% 100 ml @ 25 mls/hr IVPB Q8HR [facility] Rx# :[id number] Output: Post Void Residual 1120 Other: Voiding Method Bedside Commode Bedside Commode - Labs CBC & Chem 7: 04/02/19 13:11 04/02/19 13:11 Labs: Abnormal Lab Results - Last 24 Hours (Table) 04/02/19 04/03/19 Range/Units 13:21 05:44 Procalcitonin 0.17 H (0.02-0.09) ng/mL Urine Protein Trace H (Negative) Microbiology - Last 24 Hours (Table) 04/02/19 13:11 Blood Culture - Preliminary Blood No Growth after 24 hours 04/03/19 05:44 Urine Culture - Preliminary Urine,Catheterized Assessment and Plan Assessment: The patient was started on IV Solu-Medrol. Continue same antibiotic coverage. Repeat chest x-ray in the morning. Add antitussive medications. The patient is currently on Tessalon Perles. We'll add Robitussin-AC every 6 hours [id number]. Continue IV Solu Medrol 40 mg every 8 hours. We'll continue to follow. An x-ray of the left knee will be also done and the patient fallen and she has a bruise area under her left patella. Rule out fracture. This is a joint evaluation that was done along with a nurse practitioner.
[2019-04-03] MEDS: methylPREDNISolone SOD SUCCI 40 MG/ML 1 ML VIAL IV SCH ×2 (14:23→23:36)
--- NOTE | 2019-04-03 15:57 | XR ---
EXAMINATION TYPE: XR knee complete LT DATE OF EXAM: 04/03/2019 COMPARISON: None HISTORY: Bruise, pain fall TECHNIQUE: Left knee is examined in 3 projections. FINDINGS: There is loss of the medial lateral compartment joint space. Medial and lateral femoral con dylar spurring and tibial plateau spurring is present. Posterior patellar spurring is present superio rly and inferiorly. No joint effusion is evident. No acute fractures are evident. IMPRESSION: 1. Advanced osteoarthritic degenerative change left knee
[2019-04-03] MEDS ORDERED: LEVOFLOXACIN 750MG-D5W PMX 750 MG in DEXTROSE/WATER 1 150ML.BAG IVPB SCH (16:00)
[2019-04-03] MEDS: guaiFENesin-Coden 100-10MG/5ML 10 ML CUP PO SCH ×2 (17:16→21:43)
--- NOTE | 2019-04-03 18:20 | P.HPIM ---
History of Present Illness H&P Date: 04/03/19 Chief Complaint: Cough congested History of presenting complaint: This is a 83-year-old patient of Dr. Beth from visiting physician. Chronic stable medical conditions include chronic kidney disease stage III, COPD, hypertension, hyperlipidemia, persistent atrial fibrillation, secondary pulmonary hypertension, moderate tricuspid regurgitation. Patient now the best of historians. Patient presents with worsening shortness of breath. Has a cough. Congested. Denies any obvious fevers and chills. Feeling weak tired rundown. Not able to expectorate. Appetite is okay. She lives at [facility]. Patient does use a cane as needed. Does feel tired and rundown. Review of systems: GEN.: Tired rundown EYES: None HEENT: None NECK: None RESPIRATORY: As above CARDIOVASCULAR: None GASTROINTESTINAL: None GENITOURINARY: None MUSCULOSKELETAL: Some pain in the joints LYMPHATICS: None HEMATOLOGICAL: None PSYCHIATRY: Forgetful NEUROLOGICAL: Does use a cane Past medical history: To include Chronic kidney disease stage III, COPD, hypertension, hyperlipidemia, persistent atrial fibrillation, secondary probably hypertension, moderate tricuspid regurgitation,: Breast cancer followed by bilateral mastectomy, stroke, small bowel obstruction Schizophrenia Social history: Lives at [facility] living apartment. Patient smoked for approximately 30 years stopped around age of 51. No alcohol. Does use a cane. Family history: Patient does not remember Physical examination: VITAL SIGNS: Temperature 100.2, pulse 105, respiration 21, blood pressure 1 5689, pulse of 95% room air GENERAL: BMI 24.4, propped up in bed, sitting up coughing with congestion audible. EYES: Pupils equal. Conjunctiva normal. HEENT: External appearance of nose and ears normal, oral cavity grossly normal. NECK: JVD not raised; masses not palpable. HEART: First and second heart sounds are normal; no edema. LUNGS: Respiratory rate increased, diminished breath sound expiratory crackles. ABDOMEN: Soft, nontender, liver spleen not palpable, no masses palpable. PSYCH: Patient able to answer some simple questions. Otherwise forgetfull. NEUROLOGICAL: Cranial nerves grossly intact; no facial asymmetry, power and sensation grossly intact. LYMPHATICS: No lymph nodes palpable in the axilla and neck MUSCULOSKELETAL: Evidence of OA especially in the hands Investigations: White count 10.3 hemoglobin 13.6 increased neutrophils potassium 4.7 bun 24 creatinine 1.55 ProBNP 3080 pro calcitonin to 0.17 EKG tracing personally reviewed by me-atrial fibrillation with rate controlled Chest x-ray film personally reviewed by me-shows bilateral infiltrates, cannot rule out vascular prominence Assessment: -Bilateral multilobar pneumonia though predominantly lower lobes suspect gram- negative organism, causing sepsis, POA -Chronic kidney disease stage III probably from nephrosclerosis -Acute COPD exacerbation and an ex-smoker -Essential hypertension with chronic kidney disease -Hyperlipidemia -Persistent atrial fibrillation rate control -Secondary probably hypertension -Moderate tricuspid regurgitation -Moderate cognitive impairment -baseline uses a cane Plan: Patient is on bronchodilators, does take eliquis for her A. fib, on antibiotics per pulmonary including Levaquin and Zosyn. Also wants IV Solu-Medrol. Will add Mucomyst for expectoration. Sputum to be sent off for Gram stain and culture. Care was discussed with the patient. Questions were answered. Kerry ent was seen by pulmonary. Past Medical History Past Medical History: Cancer, COPD, CVA/TIA, Hyperlipidemia, Hypertension Additional Past Medical History / Comment(s): colon & breast CA and the patient is post bilateral mastectomy, hypertension, hyperlipidemia, CVA, COPD, chronic atrial fibrillation, chronic kidney disease stage III, previous history of small bowel obstruction related to abdominal adhesions that was released surgically Last Myocardial Infarction Date:: unk History of Any Multi-Drug Resistant Organisms: None Reported Past Surgical History: Breast Surgery Additional Past Surgical History / Comment(s): double mastectomy, expiratory laparotomy and release of small bowel obstruction Past Anesthesia/Blood Transfusion Reactions: No Reported Reaction Past Psychological History: Schizophrenia Additional Psychological History / Comment(s): pt stated she lives in a longterm apt but can't rememebr name of it Smoking Status: Former smoker Past Alcohol Use History: None Reported Additional Past Alcohol Use History / Comment(s): started smoking in her 20's and quit at age 51, also quit drinking at age 51(went to [facility]) Past Drug Use History: None Reported - Past Family History Mother Additional Family Medical History / Comment(s): "back problems', unable to take a family history from this patient who happens to be a very poor historian Father History Unknown: Yes Medications and Allergies Home Medications Medication Instructions Recorded Confirmed Type Acetaminophen [Tylenol] 650 mg PO BID@0800,199907/25/17 04/02/19 History Calcium Carbonate/Vitamin D3 1 tab PO BID@0800,199907/25/17 04/02/19 History [Calcium 600-Vit D3 400 Tablet] Docusate [Colace] 100 mg PO BID@08,199907/25/17 04/02/19 History Fluticasone Nasal [place] [Flonase 1 spray EA NOSTRIL DAILY@0807/25/17 04/02/19 History Nasal [place]] Fluticasone/Salmeterol [Advair 1 puff INHALATION RT-BID@08,199907/25/17 04/02/19 History 250-50 Diskus] Gabapentin [Neurontin] 300 mg PO BID@08,199907/25/17 04/02/19 History Loratadine [Claritin] 10 mg PO DAILY@0807/25/17 04/02/19 History Multivit-Min/FA/Lycopen/Lutein 1 tab PO DAILY@0807/25/17 04/02/19 History [Centrum Silver Tablet] Omeprazole [PriLOSEC] 20 mg PO BID@06,199907/25/17 04/02/19 History Polyethylene Glycol 3350 [Miralax] 17 gm PO DAILY@0807/25/17 04/02/19 History Promethazine [Phenergan] 12.5 mg PO Q12H PRN 07/25/17 04/02/19 History Apixaban [Eliquis] 5 mg PO BID@08,1999 #0 08/10/17 04/02/19 Rx Benzonatate [Tessalon Perles] 100 mg PO TID PRN 09/24/18 04/02/19 History Bisacodyl [Dulcolax] 10 mg RECTAL DAILY PRN 09/24/18 04/02/19 History Budesonide [Pulmicort] 0.5 mg INHALATION RT-BID 09/24/18 04/02/19 History Cyanocobalamin (Vitamin B-12) 1,000 mcg PO DAILY 09/24/18 04/02/19 History [Vitamin B-12] Diphenox-Atrop 2.5-0.025 mg 1 tab PO Q4H PRN 09/24/18 04/02/19 History [Lomotil] Ferrous Gluconate 324 mg PO DAILY@0800 09/24/18 04/02/19 History Furosemide [Lasix] 20 mg PO DAILY@0800 09/24/18 04/02/19 History Hydrocortisone Acetate [Anucort-Hc] 25 mg RECTAL Q12H PRN 09/24/18 04/02/19 History OLANZapine [OLANZapine Odt] 20 mg PO HS@199909/24/18 04/02/19 History Metoprolol Tartrate [Lopressor] 25 mg PO BID #60 tab 09/28/18 04/02/19 Rx guaiFENesin [Mucinex] 1,200 mg PO BID@799,1999 #0 09/28/18 04/02/19 Rx Docusate [Colace] 100 mg PO BID 04/02/19 04/02/19 History Ipratropium-Albuterol Nebulize 3 ml INHALATION RT-TID 04/02/19 04/02/19 History [Duoneb 0.5 mg-3 mg/3 ml Soln] Menthol [Biofreeze] 1 applic TOPICAL QID PRN 04/02/19 04/02/19 History Simvastatin [Zocor] 20 mg PO DAILY 04/02/19 04/02/19 History Spironolactone [Aldactone] 25 mg PO Q48H 04/02/19 04/02/19 History Allergies Allergy/AdvReac Type Severity Reaction Status Date / Time No Known Allergies Allergy Verified 04/02/19 12:30 Physical Exam Vitals: Vital Signs Temp Pulse Pulse Resp BP BP Pulse Ox 04/03/19 08:14 102 H 04/03/19 07:57 98 04/03/19 05:14 100 04/03/19 05:05 100 04/03/19 05:00 98.4 F 87 16 120/74 98 04/02/19 21:25 97.2 F L 109 H 16 110/66 96 04/02/19 21:07 92 04/02/19 20:55 90 04/02/19 17:57 105 H 17 04/02/19 17:06 124/55 04/02/19 17:05 99.7 F H 118 H 18 94 L 04/02/19 15:39 19 95 04/02/19 15:00 102 F H 105 H 21 156/89 95 04/02/19 12:51 87 04/02/19 12:42 91 04/02/19 12:26 88 18 126/62 98 Intake and Output 04/02/19 04/03/19 04/03/19 22:59 06:59 14:59 Intake Total 100 100 Output Total 1120 Balance 100 -1020 Intake: Intake, IV Titration 100 100 Amount Piperacillin-Tazobactam 3 100 .375 gm In Sodium Chloride 0.9% 100 ml @ 200 mls/hr IVPB ONCE STA Rx#:[id number] Piperacillin-Tazobactam 3 100 .375 gm In Sodium Chloride 0.9% 100 ml @ 25 mls/hr IVPB Q8HR [facility] Rx# :[id number] Output: Post Void Residual 1120 Other: Voiding Method Bedside Commode Results CBC & Chem 7: 04/02/19 13:11 04/02/19 13:11 Labs: Abnormal Lab Results - Last 24 Hours (Table) 04/02/19 04/02/19 04/02/19 Range/Units 13:11 13:11 13:21 Neutrophils # 8.3 H (1.3-7.7) k/uL Lymphocytes # 0.8 L (1.0-4.8) k/uL BUN 24 H (7-17) mg/dL Creatinine 1.55 H (0.52-1.04) mg/dL Procalcitonin 0.17 H (0.02-0.09) ng/mL Urine Protein (Negative) 04/03/19 Range/Units 05:44 Neutrophils # (1.3-7.7) k/uL Lymphocytes # (1.0-4.8) k/uL BUN (7-17) mg/dL Creatinine (0.52-1.04) mg/dL Procalcitonin (0.02-0.09) ng/mL Urine Protein Trace H (Negative) Thrombosis Risk Factor Assmnt - Choose All That Apply Each Factor Represents 1 point: Serious lung disease incl. pneumonia (< 1month) Each Risk Factor Represents 2 Points: Malignancy Each Risk Factor Represents 3 Points: Age 75 years or older Thrombosis Risk Factor Assessment Total Risk Factor Score: 6 Thrombosis Risk Factor Assessment Level: High Risk
[2019-04-03] MEDS: SYMBICORT 80-4.5 MCG INHALER INHALATION SCH (21:02)
[2019-04-03] MEDS: guaiFENesin 600 MG TABLET.ER PO SCH (21:45)
[2019-04-03] MEDS: OLANZapine ODT 10 MG TAB PO SCH (21:48)
[2019-04-04] MEDS: guaiFENesin-Coden 100-10MG/5ML 10 ML CUP PO SCH ×4 (04:12→22:19)
[2019-04-04] MEDS: PANTOPRAZOLE 40 MG TABLET PO SCH ×2 (05:49→19:54)
[2019-04-04] MEDS: SODIUM CHLORIDE 0.9% 1,000 ML IV SCH ×2 (08:05→17:54)
[2019-04-04] MEDS: METOPROLOL TARTRATE 25 MG TAB PO SCH ×2 (08:06→22:19)
[2019-04-04] MEDS: guaiFENesin 600 MG TABLET.ER PO SCH (08:06)
[2019-04-04] MEDS: GABAPENTIN 300 MG CAP PO SCH ×2 (08:07→19:54)
[2019-04-04] MEDS: APIXABAN 5 MG TAB PO SCH ×2 (08:07→19:53)
[2019-04-04] MEDS: FUROSEMIDE 20 MG TAB PO SCH (08:07)
[2019-04-04] MEDS: methylPREDNISolone SOD SUCCI 40 MG/ML 1 ML VIAL IV SCH ×2 (08:07→17:53)
[2019-04-04] MEDS: MULTIVITAMINS, THERA 1 EACH TAB PO SCH (08:07)
[2019-04-04] MEDS: CALCIUM CARB-VIT D 500MG-200UN 1 EACH TAB PO SCH ×2 (08:07→19:53)
[2019-04-04] MEDS: ATORVASTATIN 10 MG TAB PO SCH (08:07)
[2019-04-04] MEDS: ACETAMINOPHEN TAB 325 MG TAB PO SCH ×2 (08:07→19:53)
[2019-04-04] MEDS: FERROUS SULFATE 325 MG TAB PO SCH (08:07)
[2019-04-04] MEDS: IPRATROPIUM-ALBUTEROL 3 ML NEB INHALATION SCH ×3 (08:09→19:53)
[2019-04-04] MEDS: SYMBICORT 80-4.5 MCG INHALER INHALATION SCH ×2 (08:09→19:51)
[2019-04-04] MEDS: PIPERACILLIN-TAZOBACTAM 3.375 GM in SODIUM CHLORIDE 0.9% 100 ML IVPB SCH ×2 (08:12→17:54)
[2019-04-04] MEDS ORDERED: FUROSEMIDE 10 MG/ML 4 ML VIAL IV STA (10:01)
--- NOTE | 2019-04-04 10:31 | ECHOF ---
Referral Reason:Assess LV function MEASUREMENTS -------- HEIGHT: 182.9 cm WEIGHT: 81.6 kg BP: 120/59 RVIDd: 2.9 cm (< 3.3) IVSd: 1.4 cm (0.6 - 1.1) LVIDd: 4.1 cm (3.9 - 5.3) LVPWd: 1.4 cm (0.6 - 1.1) IVSs: 1.7 cm LVIDs: 2.7 cm LVPWs: 1.6 cm LAESV Index (A-L): 45.05 ml/m Ao Diam: 3.8 cm (2.0 - 3.7) AV Cusp: 2.1 cm (1.5 - 2.6) LA Diam: 5.5 cm (2.7 - 3.8) AR PHT: 364 ms RAP: 20.00 mmHg RVSP: 72.24 mmHg FINDINGS -------- Atrial fibrillation. This was a technically adequate study. The left ventricular size is normal. There is moderate concentric left ventricular hypertrophy. O verall left ventricular systolic function is normal with, an EF between 55 - 60 %. Diastolic functi one could not be evaluated due to AFib The right ventricle is normal in size. Left atrium is severely dilated by volume. The right atrium is moderately enlarged. Interatrial and interventricular septum intact. The aortic valve is trileaflet and appears structurally normal. There is mild aortic valve sclerosi s without stenosis. There is mild aortic regurgitation. Mild mitral annular calcification present. [id number] mitral regurgitation is present. Severe tricuspid regurgitation present. There is severe pulmonary hypertension. The right ventric ular systolic pressure, as measured by Doppler, is 72.24mmHg. There is no pulmonic regurgitation present. The aortic root is mildy dilated. The inferior vena cava is dilated with poor inspiratory collapse which is consistent with estimated r ight atrial pressure of 20 mmHg. There is no pericardial effusion. CONCLUSIONS -------- 1. Atrial fibrillation. 2. This was a technically adequate study. 3. The left ventricular size is normal. 4. There is moderate concentric left ventricular hypertrophy. 5. Overall left ventricular systolic function is normal with, an EF between 55 - 60 %. 6. Diastolic functione could not be evaluated due to AFib 7. The right ventricle is normal in size. 8. Left atrium is severely dilated by volume. 9. The right atrium is moderately enlarged. 10. Interatrial and interventricular septum intact. 11. The aortic valve is trileaflet and appears structurally normal. 12. There is mild aortic valve sclerosis without stenosis. 13. There is mild aortic regurgitation. 14. Mild mitral annular calcification present. 15. Ihfnherr-[id number] mitral regurgitation is present. 16. Severe tricuspid regurgitation present. 17. There is severe pulmonary hypertension. 18. The right ventricular systolic pressure, as measured by Doppler, is 72.24mmHg. 19. There is no pulmonic regurgitation present. 20. The aortic root is mildy dilated. 21. The inferior vena cava is dilated with poor inspiratory collapse which is consistent with estimat ed right atrial pressure of 20 mmHg. 22. There is no pericardial effusion. CHAIR UPHOLSTERER: Carmina Pereira RDCS
[2019-04-04 11:00] LABS: Calcium 9.2 mg/dL (8.4-10.2); Potassium 4.1 mmol/L (3.5-5.1)
--- NOTE | 2019-04-04 15:30 | P.PN ---
Subjective Progress Note Date: 04/04/19 Principal diagnosis: Acute hypoxic respiratory failure secondary to bilateral lower lobe pneumonia 84-year-old female patient presented to the ED because of generalized weakness and worsening shortness of breath. Her symptoms were progressively getting worse over the past few days. She got moved to the hospital and the patient was also having increased cough along with some shortness of breath. No fever. No aspiration. The patient lives of a halfway facility. Her white cell count of 10.3. Creatinine is at 1.5 and the rest of the electrolytes all within normal limits. The proBNP level was 3080. Chest x-ray is showing increased interstitial prominence bilaterally along with some limitation of the right hemidiaphragm. There is also cardiomegaly. This patient has history of breast and colon cancer as well as hypertension. She has been in our hospital back in 2018 for sepsis secondary to right lower lobe pneumonia and acute small bowel obstruction and acute urinary tract infection. At that time she also had A. fib/RVR complicating her picture. She is known to have COPD, previous history of CVA/TIA, hypertension and hyperlipidemia and addition to colon and breast cancer and the patient undergone double mastectomy. She does have some baseline schizophrenia. She has previous history of smoking and she is currently in remission. Subsequently she was admitted to the hospital back in 2018 for shortness of breath and bilateral pneumonia and atrial fibrillation with rapid ventricular response. She has a preserved LV function from August 2018 indicating an ejection fraction of 55- 60% and there is moderate pulmonary hypertension with a PA pressure of 66. The patient had mild aortic sclerosis mild mitral regurgitation and moderate tricuspid regurgitation. The patient is seen today 04/03/2019 in follow-up on the regular medical floor. She is currently awake and alert sitting up in a chair at the bedside. She is still quite congested with a loose nonproductive cough. She is maintaining O2 saturation in the mid 90s on 2 L/m per nasal cannula. She's afebrile. Urine culture pending. She is continued on DuoNeb inhalations, Tessalon Perles, Symbicort, Mucinex, antibiotics in the form of Zosyn and Levaquin. On diuretics. Chest x-ray shows pulmonary vascular congestion with increased linear markings compared to previous. On 04/04/2017 patient seen in follow-up on medical oncology floor. Sounds better today, still has some congestion, and wheezing, but overall sounds better, she is coughing less, not coughing up any sputum. No fever or chills in the last 24 hours, remains on 2 L with a pulse ox of 98%, no complaints of chest pain. Blood and urine cultures have been negative, we have been unable to collect a sputum culture. Yesterday we added IV Solu-Medrol for patient's chest congestion, and wheezing, and cough syrup. And antibiotic coverage is with Levaquin and Zosyn Objective - Vital Signs Vital signs: Vital Signs Temp 97.8 F 04/04/19 12:34 Pulse 84 04/04/19 13:16 Resp 18 04/04/19 12:34 BP 117/60 04/04/19 12:34 Pulse Ox 98 04/04/19 12:34 Intake & Output 04/03/19 04/04/19 04/04/19 18:59 06:59 18:59 Intake Total 1180 850 Output Total 800 1000 Balance 380 850 -1000 Intake: Intake, IV Titration 220 850 Amount Piperacillin-Tazobactam 3 100 100 .375 gm In Sodium Chloride 0.9% 100 ml @ 25 mls/hr IVPB Q8HR [facility] Rx# :[id number] Sodium Chloride 0.9% 1, 120 750 000 ml @ 100 mls/hr IV . Q10H [facility] Rx#:[id number] Oral 960 Output: Urine 800 1000 Other: Voiding Method Indwelling Catheter Indwelling Catheter - Exam GENERAL EXAM: Alert, pleasant, 84-year-old white female 2 L of oxygen, with a pulse of 90% comfortable in no apparent distress. HEAD: Normocephalic/atraumatic. EYES: Normal reaction of pupils, equal size. Conjunctiva pink, sclera white. NOSE: Clear with pink turbinates. THROAT: No erythema or exudates. NECK: No masses, no JVD, no thyroid enlargement, no adenopathy. CHEST: No chest wall deformity. Symmetrical expansion. LUNGS: Equal air entry with some scattered wheezing, rhonchi, improved from yesterday's exam CVS: Regular rate and rhythm, normal S1 and S2, no gallops, no murmurs, no rubs ABDOMEN: Soft, nontender. No hepatosplenomegaly, normal bowel sounds, no guarding or rigidity. EXTREMITIES: No clubbing, no edema, no cyanosis, 2+ pulses and upper and lower extremities. MUSCULOSKELETAL: Muscle strength and tone normal. SPINE: No scoliosis or deformity SKIN: No rashes CENTRAL NERVOUS SYSTEM: Alert and oriented -3. No focal deficits, tone is normal in all 4 extremities. PSYCHIATRIC: Alert and oriented -3. Appropriate affect. Intact judgment and insight. - Labs CBC & Chem 7: 04/02/19 13:11 04/04/19 10:13 Labs: Abnormal Lab Results - Last 24 Hours (Table) 04/04/19 Range/Units 10:13 BUN 25 H (7-17) mg/dL Creatinine 1.18 H (0.52-1.04) mg/dL Glucose 194 H (74-99) mg/dL Microbiology - Last 24 Hours (Table) 04/02/19 13:11 Blood Culture - Preliminary Blood No Growth after 48 hours 04/03/19 05:44 Urine Culture - Final Urine,Catheterized Assessment and Plan Plan: Assessment: 1 acute hypoxic respiratory failure secondary to bilateral lower lobe pneumonia . Consider aspiration 2 COPD 3 chronic atrial fibrillation 4 chronic stage III kidney disease 5 hypertension 6 hyperlipidemia 7 history of breast cancer with a previous lateral meniscectomy 8 history of colon cancer 9 history of small bowel obstruction requiring surgical release of adhesions back in 2018 10 questionable history of schizophrenia 11 severe pulmonary hypertension, with PA systolic of 72 mmHg, moderate to severe mitral regurgitation, severe tricuspid regurgitation, Plan: Continue antibiotic coverage, try to collect and send a sputum culture, patient afebrile in last 24 hours, she is breathing easier, less congested, coughing less, continue with cough syrup, IV Solu-Medrol, 2 units nebulized bronchodilators, Symbicort. Continue oral Lasix. Obtain a follow-up chest x- ray tomorrow. I performed a history & physical examination of the patient and discussed their management with my nurse practitioner, Ronel Keenan. I reviewed the nurse practitioner's note and agree with the documented findings and plan of care. Lung sounds are positive for scattered rhonchi,. The findings and the impression was discussed with the patient. I attest to the documentation by the nurse practitioner. Time with Patient: Less than 30
[2019-04-04] MEDS ORDERED: LEVOFLOXACIN 750MG-D5W PMX 750 MG in DEXTROSE/WATER 1 150ML.BAG IVPB SCH ×2 (17:00→21:00)
[2019-04-04] MEDS: OLANZapine ODT 10 MG TAB PO SCH (19:54)
--- NOTE | 2019-04-04 22:41 | P.PN ---
Progress Note - Text Progress Note Date: 04/04/19 Chief Complaint: Cough congested Interval history: This is a 83-year-old patient of Dr. Beth from visiting physician. Chronic stable medical conditions include chronic kidney disease stage III, COPD, hypertension, hyperlipidemia, persistent atrial fibrillation, secondary pulmonary hypertension, moderate tricuspid regurgitation. Patient now the best of historians. Patient presents with worsening shortness of breath. Has a cough. Congested. Denies any obvious fevers and chills. Feeling weak tired rundown. Not able to expectorate. Appetite is okay. She lives at [facility]. Patient does use a cane as needed. Does feel tired and rundown. Today-. Feels bit better. She is less congested. So got a cough. Ate a little bit. Tired. Sitting up Review of systems: Was done for constitutional, cardiovascular, GI, pulmonary. relevant finding as above Active Medications Acetaminophen (Tylenol Tab) 650 mg PO BID@ [facility] Last Admin: 04/04/19 19:53 Dose: 650 mg Documented by: Albuterol/Ipratropium (Duoneb 0.5 Mg-3 Mg/3 Ml Soln) 3 ml INHALATION RT-Q4H PRN PRN Reason: shortness of breath Last Admin: 04/03/19 05:05 Dose: 3 ml Documented by: Albuterol/Ipratropium (Duoneb 0.5 Mg-3 Mg/3 Ml Soln) 3 ml INHALATION RT-TID [facility] Last Admin: 04/04/19 19:53 Dose: 3 ml Documented by: Apixaban (Eliquis) 5 mg PO BID@ [facility] Last Admin: 04/04/19 19:53 Dose: 5 mg Documented by: Atorvastatin Calcium (Lipitor) 10 mg PO DAILY [facility] Last Admin: 04/04/19 08:07 Dose: 10 mg Documented by: Benzonatate (Tessalon Perles) 100 mg PO TID PRN PRN Reason: Cough Last Admin: 04/03/19 08:47 Dose: 100 mg Documented by: Bisacodyl (Dulcolax) 10 mg RECTAL DAILY PRN PRN Reason: Constipation Budesonide/Formoterol Fumarate (Symbicort 80-4.5 Mcg Inhaler) 2 puff INHALATION RT-BID@ [facility] Last Admin: 04/04/19 19:51 Dose: 2 puff Documented by: Calcium Carbonate (Oscal 500+D) 1 each PO BID@ [facility] Last Admin: 04/04/19 19:53 Dose: 1 each Documented by: Diphenoxylate HCl/Atropine (Lomotil) 1 each PO Q4H PRN PRN Reason: Diarrhea Ferrous Sulfate (Feosol) 325 mg PO DAILY@08 [facility] Last Admin: 04/04/19 08:07 Dose: 325 mg Documented by: Furosemide (Lasix) 20 mg PO DAILY@799 [facility] Last Admin: 04/04/19 08:07 Dose: 20 mg Documented by: Gabapentin (Neurontin) 300 mg PO BID@ [facility] Last Admin: 04/04/19 19:54 Dose: 300 mg Documented by: Guaifenesin/Codeine Phosphate (Robitussin Ac) 10 ml PO Q6H [facility] Last Admin: 04/04/19 22:19 Dose: 10 ml Documented by: Hydrocortisone Acetate (Anusol-Hc) 25 mg RECTAL Q12H PRN PRN Reason: Hemorrhoids Sodium Chloride (Saline 0.9%) 1,000 mls @ 100 mls/hr IV .Q10H [facility] Last Admin: 04/04/19 17:54 Dose: 100 mls/hr Documented by: Piperacillin Sod/Tazobactam (Sod 3.375 gm/ Sodium Chloride) 100 mls @ 25 mls/hr IVPB Q8HR [facility] Stop: 04/12/19 00:01 Last Admin: 04/04/19 17:54 Dose: 25 mls/hr Documented by: Levofloxacin 750 mg/ IV (Solution) 150 mls @ 100 mls/hr IVPB Q48H [facility] Stop: 04/04/19 23:00 Last Admin: 04/04/19 22:19 Dose: 100 mls/hr Documented by: Levofloxacin (Levaquin) 750 mg PO Q48H [facility] Methyl Salicylate (Thera-Gesic Cream) 1 applic TOPICAL QID PRN PRN Reason: Pain Methylprednisolone Sodium Succinate (Solu-Medrol) 40 mg IV Q8HR [facility] Last Admin: 04/04/19 17:53 Dose: 40 mg Documented by: Metoprolol Tartrate (Lopressor) 25 mg PO BID [facility] Last Admin: 04/04/19 22:19 Dose: 25 mg Documented by: Miscellaneous Information (Pneumonia Protocol Utilized) 1 each PO ONCE PRN PRN Reason: Per Protocol Multivitamins (Theragran) 1 each PO DAILY@0800 [facility] Last Admin: 04/04/19 08:07 Dose: 1 each Documented by: Olanzapine (Zyprexa Zydis) 20 mg PO HS@1999 [facility] Last Admin: 04/04/19 19:54 Dose: 20 mg Documented by: Pantoprazole Sodium (Protonix) 40 mg PO BID@ [facility] Last Admin: 04/04/19 19:54 Dose: 40 mg Documented by: Promethazine HCl (Phenergan) 12.5 mg PO Q12H PRN PRN Reason: Nausea Spironolactone (Aldactone) 25 mg PO Q48H [facility] Last Admin: 04/03/19 11:48 Dose: 25 mg Documented by: Physical examination: VITAL SIGNS: 97.8, 83, 18, 117 was 60, 98% 2 L GENERAL: Propped up in bed, less congested appearing EYES: Pupils equal. Conjunctiva normal. HEENT: External appearance of nose and ears normal, oral cavity grossly normal. NECK: JVD not raised; masses not palpable. HEART: First and second heart sounds are normal; no edema. LUNGS: Respiratory rate increased, diminished breath sound expiratory crackles. ABDOMEN: Soft, nontender, liver spleen not palpable, no masses palpable. PSYCH: Patient able to answer some simple questions. Otherwise forgetfull. Investigations: Potassium 4.1 bun 25 creatinine 1.18, proBNP 3080 Previous testing White count 10.3 hemoglobin 13.6 increased neutrophils potassium 4.7 bun 24 creatinine 1.55 ProBNP 3080 pro calcitonin to 0.17 EKG tracing personally reviewed by me-atrial fibrillation with rate controlled Chest x-ray film personally reviewed by me-shows bilateral infiltrates, cannot rule out vascular prominence Assessment: -Bilateral multilobar pneumonia though predominantly lower lobes suspect gram- negative organism, causing sepsis, POA -Chronic kidney disease stage III probably from nephrosclerosis -Acute COPD exacerbation and an ex-smoker -Essential hypertension with chronic kidney disease -Hyperlipidemia -Persistent atrial fibrillation rate control -Secondary probably hypertension -Moderate tricuspid regurgitation -Moderate cognitive impairment -baseline uses a cane Plan: Started to turn around. Continue antibiotics. Care was discussed the patient. Other medications to continue. Continue Zosyn. TOBIN Nicole.
[2019-04-05] MEDS: PIPERACILLIN-TAZOBACTAM 3.375 GM in SODIUM CHLORIDE 0.9% 100 ML IVPB SCH ×4 (00:38→23:59)
[2019-04-05] MEDS: methylPREDNISolone SOD SUCCI 40 MG/ML 1 ML VIAL IV SCH ×3 (00:38→17:02)
[2019-04-05] MEDS: guaiFENesin-Coden 100-10MG/5ML 10 ML CUP PO SCH ×4 (03:24→22:15)
[2019-04-05] MEDS: SODIUM CHLORIDE 0.9% 1,000 ML IV SCH ×2 (06:21→19:54)
[2019-04-05] MEDS: PANTOPRAZOLE 40 MG TABLET PO SCH ×2 (06:25→20:14)
--- NOTE | 2019-04-05 08:35 | XR ---
EXAMINATION TYPE: XR chest 2V DATE OF EXAM: 04/05/2019 COMPARISON: 04/03/2019 HISTORY: 84-year-old female follow-up pneumonia TECHNIQUE: Frontal and lateral views FINDINGS: Mild to moderately enlarged. Diffuse interstitial prominence. Patchy peripheral left midlung and left basilar opacity especially at the posterior base on the lateral view. Trace left effusion. Overall p ulmonary vasculature appears relatively normal. IMPRESSION: Cardiomegaly. Stable or slightly increasing left mid and lower lung patchy infiltrates with improveme nt in the pulmonary vasculature elsewhere in the lungs. Suspect trace left effusion.
[2019-04-05] MEDS: SYMBICORT 80-4.5 MCG INHALER INHALATION SCH ×2 (08:36→20:32)
[2019-04-05] MEDS: IPRATROPIUM-ALBUTEROL 3 ML NEB INHALATION SCH ×3 (08:36→20:32)
[2019-04-05] MEDS: ACETAMINOPHEN TAB 325 MG TAB PO SCH ×2 (10:02→20:12)
[2019-04-05] MEDS: GABAPENTIN 300 MG CAP PO SCH ×2 (10:02→20:13)
[2019-04-05] MEDS: METOPROLOL TARTRATE 25 MG TAB PO SCH ×2 (10:03→20:14)
[2019-04-05] MEDS: SPIRONOLACTONE 25 MG TAB PO SCH (10:03)
[2019-04-05] MEDS: ATORVASTATIN 10 MG TAB PO SCH (10:03)
[2019-04-05] MEDS: FERROUS SULFATE 325 MG TAB PO SCH (10:04)
[2019-04-05] MEDS: CALCIUM CARB-VIT D 500MG-200UN 1 EACH TAB PO SCH ×2 (10:04→20:13)
[2019-04-05] MEDS: MULTIVITAMINS, THERA 1 EACH TAB PO SCH (10:04)
[2019-04-05] MEDS: APIXABAN 5 MG TAB PO SCH ×2 (10:04→20:13)
[2019-04-05] MEDS: FUROSEMIDE 20 MG TAB PO SCH (10:04)
--- NOTE | 2019-04-05 11:16 | P.PN ---
Subjective Progress Note Date: 04/05/19 Principal diagnosis: Acute hypoxic respiratory failure secondary to bilateral lower lobe pneumonia 84-year-old female patient presented to the ED because of generalized weakness and worsening shortness of breath. Her symptoms were progressively getting worse over the past few days. She got moved to the hospital and the patient was also having increased cough along with some shortness of breath. No fever. No aspiration. The patient lives of a long-term facility. Her white cell count of 10.3. Creatinine is at 1.5 and the rest of the electrolytes all within normal limits. The proBNP level was 3080. Chest x-ray is showing increased interstitial prominence bilaterally along with some limitation of the right hemidiaphragm. There is also cardiomegaly. This patient has history of breast and colon cancer as well as hypertension. She has been in our hospital back in 2018 for sepsis secondary to right lower lobe pneumonia and acute small bowel obstruction and acute urinary tract infection. At that time she also had A. fib/RVR complicating her picture. She is known to have COPD, previous history of CVA/TIA, hypertension and hyperlipidemia and addition to colon and breast cancer and the patient undergone double mastectomy. She does have some baseline schizophrenia. She has previous history of smoking and she is currently in remission. Subsequently she was admitted to the hospital back in 2018 for shortness of breath and bilateral pneumonia and atrial fibrillation with rapid ventricular response. She has a preserved LV function from August 2018 indicating an ejection fraction of 55- 60% and there is moderate pulmonary hypertension with a PA pressure of 66. The patient had mild aortic sclerosis mild mitral regurgitation and moderate tricuspid regurgitation. The patient is seen today 04/03/2019 in follow-up on the regular medical floor. She is currently awake and alert sitting up in a chair at the bedside. She is still quite congested with a loose nonproductive cough. She is maintaining O2 saturation in the mid 90s on 2 L/m per nasal cannula. She's afebrile. Urine culture pending. She is continued on DuoNeb inhalations, Tessalon Perles, Symbicort, Mucinex, antibiotics in the form of Zosyn and Levaquin. On diuretics. Chest x-ray shows pulmonary vascular congestion with increased linear markings compared to previous. On 04/04/2019 patient seen in follow-up on medical oncology floor. Sounds better today, still has some congestion, and wheezing, but overall sounds better, she is coughing less, not coughing up any sputum. No fever or chills in the last 24 hours, remains on 2 L with a pulse ox of 98%, no complaints of chest pain. Blood and urine cultures have been negative, we have been unable to collect a sputum culture. Yesterday we added IV Solu-Medrol for patient's chest congestion, and wheezing, and cough syrup. And antibiotic coverage is with Levaquin and Zosyn On 04/05/2019 patient is seen in follow-up on medical surgical floor. She is resting comfortably in bed, she states she is still having coughing spells, chest congestion, and she is not clearing much sputum. Lung sounds reveal diffuse rhonchi, no significant wheezing, overall patient seems to be improving, less bronchospastic, although there is still some chest congestion, she is on 2 L of oxygen with a pulse ox of 98%, she is afebrile, hemodynamically stable, no acute events overnight, no complaints of chest tenderness, no hemoptysis. No fever or chills, today's labs have been reviewed, no CBC was done, BMP shows normal electrolytes, BUN of 25 and creatinine is 1.18. Blood and urine cultures are negative. Current antibiotic coverage includes Zosyn. Patient is on oral Lasix she is maintaining negative fluid balance, no worsening lower extremity edema, no worsening shortness of breath. Follow-up chest x-ray today shows sta ble findings of left mid and lower lung patchy infiltrates with improvement in the pulmonary vasculature, and trace left pleural effusion. Objective - Vital Signs Vital signs: Vital Signs Temp 98.1 F 04/05/19 04:41 Pulse 88 04/05/19 08:46 Resp 18 04/05/19 04:41 BP 132/63 04/05/19 04:41 Pulse Ox 98 04/05/19 04:41 Intake & Output 04/04/19 04/05/19 04/05/19 18:59 06:59 18:59 Intake Total 1470 560 Output Total 3000 Balance -1530 560 Intake: Intake, IV Titration 310 200 Amount Levofloxacin 750Mg-D5w 150 Pmx 750 mg In Dextrose/ Water 1 150ml.bag @ 100 mls/hr IVPB Q48H [facility] Rx#: [id number] Piperacillin-Tazobactam 3 100 200 .375 gm In Sodium Chloride 0.9% 100 ml @ 25 mls/hr IVPB Q8HR [facility] Rx# :[id number] Sodium Chloride 0.9% 1, 60 000 ml @ 100 mls/hr IV . Q10H [facility] Rx#:[id number] Oral 1160 360 Output: Urine 3000 Other: Voiding Method Indwelling Catheter Indwelling Catheter Indwelling Catheter - Exam GENERAL EXAM: Alert, pleasant, 84-year-old white female 2 L of oxygen, with a pulse of 90% comfortable in no apparent distress. HEAD: Normocephalic/atraumatic. EYES: Normal reaction of pupils, equal size. Conjunctiva pink, sclera white. NOSE: Clear with pink turbinates. THROAT: No erythema or exudates. NECK: No masses, no JVD, no thyroid enlargement, no adenopathy. CHEST: No chest wall deformity. Symmetrical expansion. LUNGS: Equal air entry with scattered rhonchi, improved from yesterday's exam CVS: Regular rate and rhythm, normal S1 and S2, no gallops, no murmurs, no rubs ABDOMEN: Soft, nontender. No hepatosplenomegaly, normal bowel sounds, no guarding or rigidity. EXTREMITIES: No clubbing, no edema, no cyanosis, 2+ pulses and upper and lower extremities. MUSCULOSKELETAL: Muscle strength and tone normal. SPINE: No scoliosis or deformity SKIN: No rashes CENTRAL NERVOUS SYSTEM: Alert and oriented -3. No focal deficits, tone is normal in all 4 extremities. PSYCHIATRIC: Alert and oriented -3. Appropriate affect. Intact judgment and insight. - Labs CBC & Chem 7: 04/02/19 13:11 04/04/19 10:13 Labs: Microbiology - Last 24 Hours (Table) 04/02/19 13:11 Blood Culture - Preliminary Blood No Growth after 48 hours 04/03/19 05:44 Urine Culture - Final Urine,Catheterized Assessment and Plan Plan: Assessment: 1 acute hypoxic respiratory failure secondary to bilateral lower lobe pneumonia . Consider aspiration 2 COPD 3 chronic atrial fibrillation 4 chronic stage III kidney disease 5 hypertension 6 hyperlipidemia 7 history of breast cancer with a previous lateral meniscectomy 8 history of colon cancer 9 history of small bowel obstruction requiring surgical release of adhesions back in 2018 10 questionable history of schizophrenia 11 severe pulmonary hypertension, with PA systolic of 72 mmHg, moderate to severe mitral regurgitation, severe tricuspid regurgitation, Plan: We'll continue current antibiotic coverage, continue nebulized bronchodilators, cough syrup, IV steroids, overall patient is improving, increase activity as tolerated, encouraged to deep breathe and cough. Today's chest x-ray has been reviewed, showing some improvement in the pulmonary vascular congestion, and relatively stable appearing left mid and lower lung infiltrates, clinically patient is stable, although she is still somewhat congested, she is less bronchospastic, and less dyspneic. We'll continue to follow. I performed a history & physical examination of the patient and discussed their management with my nurse practitioner, Ronel Keenan. I reviewed the nurse practitioner's note and agree with the documented findings and plan of care. Lung sounds are positive for scattered rhonchi,. The findings and the impression was discussed with the patient. I attest to the documentation by the nurse practitioner. Time with Patient: Less than 30
[2019-04-05] MEDS: OLANZapine ODT 10 MG TAB PO SCH (20:14)
--- NOTE | 2019-04-05 21:10 | P.PN ---
Progress Note - Text Progress Note Date: 04/05/19 Chief Complaint: Cough congested Interval history: This is a 83-year-old patient of Dr. Beth from visiting physician. Chronic stable medical conditions include chronic kidney disease stage III, COPD, hypertension, hyperlipidemia, persistent atrial fibrillation, secondary pulmonary hypertension, moderate tricuspid regurgitation. Patient now the best of historians. Patient presents with worsening shortness of breath. Has a cough. Congested. Denies any obvious fevers and chills. Feeling weak tired rundown. Not able to expectorate. Appetite is okay. She lives at [facility]. Patient does use a cane as needed. Does feel tired and rundown. Today-. Feeling better. Less congested. Oral intake improving. Does use a walker at home. Did sit up in a chair. Review of systems: Was done for constitutional, cardiovascular, GI, pulmonary. relevant finding as above Active Medications Acetaminophen (Tylenol Tab) 650 mg PO BID@ [facility] Last Admin: 04/05/19 20:12 Dose: 650 mg Documented by: Albuterol/Ipratropium (Duoneb 0.5 Mg-3 Mg/3 Ml Soln) 3 ml INHALATION RT-Q4H PRN PRN Reason: shortness of breath Last Admin: 04/03/19 05:05 Dose: 3 ml Documented by: Albuterol/Ipratropium (Duoneb 0.5 Mg-3 Mg/3 Ml Soln) 3 ml INHALATION RT-TID [facility] Last Admin: 04/05/19 20:32 Dose: 3 ml Documented by: Apixaban (Eliquis) 5 mg PO BID@ [facility] Last Admin: 04/05/19 20:13 Dose: 5 mg Documented by: Atorvastatin Calcium (Lipitor) 10 mg PO DAILY [facility] Last Admin: 04/05/19 10:03 Dose: 10 mg Documented by: Benzonatate (Tessalon Perles) 100 mg PO TID PRN PRN Reason: Cough Last Admin: 04/03/19 08:47 Dose: 100 mg Documented by: Bisacodyl (Dulcolax) 10 mg RECTAL DAILY PRN PRN Reason: Constipation Budesonide/Formoterol Fumarate (Symbicort 80-4.5 Mcg Inhaler) 2 puff INHALATION RT-BID@ [facility] Last Admin: 04/05/19 20:32 Dose: 2 puff Documented by: Calcium Carbonate (Oscal 500+D) 1 each PO BID@ [facility] Last Admin: 04/05/19 20:13 Dose: 1 each Documented by: Diphenoxylate HCl/Atropine (Lomotil) 1 each PO Q4H PRN PRN Reason: Diarrhea Ferrous Sulfate (Feosol) 325 mg PO DAILY@0800 [facility] Last Admin: 04/05/19 10:04 Dose: 325 mg Documented by: Furosemide (Lasix) 20 mg PO DAILY@0800 [facility] Last Admin: 04/05/19 10:04 Dose: 20 mg Documented by: Gabapentin (Neurontin) 300 mg PO BID@ [facility] Last Admin: 04/05/19 20:13 Dose: 300 mg Documented by: Guaifenesin/Codeine Phosphate (Robitussin Ac) 10 ml PO Q6H [facility] Last Admin: 04/05/19 17:02 Dose: 10 ml Documented by: Hydrocortisone Acetate (Anusol-Hc) 25 mg RECTAL Q12H PRN PRN Reason: Hemorrhoids Sodium Chloride (Saline 0.9%) 1,000 mls @ 100 mls/hr IV .Q10H [facility] Last Admin: 04/05/19 19:54 Dose: Not Given Documented by: Piperacillin Sod/Tazobactam (Sod 3.375 gm/ Sodium Chloride) 100 mls @ 25 mls/hr IVPB Q8HR [facility] Stop: 04/12/19 00:01 Last Admin: 04/05/19 17:03 Dose: 25 mls/hr Documented by: Methyl Salicylate (Thera-Gesic Cream) 1 applic TOPICAL QID PRN PRN Reason: Pain Methylprednisolone Sodium Succinate (Solu-Medrol) 40 mg IV Q8HR [facility] Last Admin: 04/05/19 17:02 Dose: 40 mg Documented by: Metoprolol Tartrate (Lopressor) 25 mg PO BID [facility] Last Admin: 04/05/19 20:14 Dose: 25 mg Documented by: Miscellaneous Information (Pneumonia Protocol Utilized) 1 each PO ONCE PRN PRN Reason: Per Protocol Multivitamins (Theragran) 1 each PO DAILY@0800 [facility] Last Admin: 04/05/19 10:04 Dose: 1 each Documented by: Olanzapine (Zyprexa Zydis) 20 mg PO HS@1999 [facility] Last Admin: 04/05/19 20:14 Dose: 20 mg Documented by: Pantoprazole Sodium (Protonix) 40 mg PO BID@ [facility] Last Admin: 04/05/19 20:14 Dose: 40 mg Documented by: Promethazine HCl (Phenergan) 12.5 mg PO Q12H PRN PRN Reason: Nausea Spironolactone (Aldactone) 25 mg PO Q48H [facility] Last Admin: 04/05/19 10:03 Dose: 25 mg Documented by: Physical examination: VITAL SIGNS: 97.6, 99, 16, 141/82, 98% on 2 L GENERAL: Sitting up in the bed, more restful EYES: Pupils equal. Conjunctiva normal. HEENT: External appearance of nose and ears normal, oral cavity grossly normal. NECK: JVD not raised; masses not palpable. HEART: First and second heart sounds are normal; no edema. LUNGS: Respiratory rate increased, diminished breath sound, decreased crackles. ABDOMEN: Soft, nontender, liver spleen not palpable, no masses palpable. PSYCH: Patient able to answer some simple questions. Otherwise forgetfull. Investigations: Potassium 4.1 bun 25 creatinine 1.18 Previous testing White count 10.3 hemoglobin 13.6 increased neutrophils potassium 4.7 bun 24 creatinine 1.55 ProBNP 3080 pro calcitonin to 0.17 EKG tracing personally reviewed by me-atrial fibrillation with rate controlled Chest x-ray film personally reviewed by me-shows bilateral infiltrates, cannot rule out vascular prominence Assessment: -Bilateral multilobar pneumonia though predominantly lower lobes suspect gram- negative organism, causing sepsis, POA, improving -Chronic kidney disease stage III probably from nephrosclerosis -Acute kidney injury, likely ATN from sepsis, POA -Acute COPD exacerbation and an ex-smoker -Essential hypertension with chronic kidney disease -Hyperlipidemia -Persistent atrial fibrillation rate control -Secondary probably hypertension -Moderate tricuspid regurgitation -Moderate cognitive impairment -baseline uses a cane Plan: Patient is improving. Doing much better. Continue on IV Zosyn for 24 hours. Hopefully patient can be discharge by tomorrow. TOBIN Solu-Medrol. Started on prednisone
[2019-04-06] MEDS: guaiFENesin-Coden 100-10MG/5ML 10 ML CUP PO SCH ×5 (03:39→23:05)
[2019-04-06] MEDS: PANTOPRAZOLE 40 MG TABLET PO SCH ×2 (05:35→19:54)
[2019-04-06] MEDS: PIPERACILLIN-TAZOBACTAM 3.375 GM in SODIUM CHLORIDE 0.9% 100 ML IVPB SCH ×2 (08:42→16:23)
[2019-04-06] MEDS: ACETAMINOPHEN TAB 325 MG TAB PO SCH ×2 (08:42→19:53)
[2019-04-06] MEDS: FERROUS SULFATE 325 MG TAB PO SCH (08:43)
[2019-04-06] MEDS: ATORVASTATIN 10 MG TAB PO SCH (08:43)
[2019-04-06] MEDS: APIXABAN 5 MG TAB PO SCH ×2 (08:43→19:53)
[2019-04-06] MEDS: CALCIUM CARB-VIT D 500MG-200UN 1 EACH TAB PO SCH ×2 (08:43→19:53)
[2019-04-06] MEDS: FUROSEMIDE 20 MG TAB PO SCH (08:43)
[2019-04-06] MEDS: GABAPENTIN 300 MG CAP PO SCH ×2 (08:43→19:53)
[2019-04-06] MEDS: METOPROLOL TARTRATE 25 MG TAB PO SCH ×2 (08:43→19:54)
[2019-04-06] MEDS: MULTIVITAMINS, THERA 1 EACH TAB PO SCH (08:43)
[2019-04-06] MEDS: predniSONE 20 MG TAB PO SCH (08:43)
[2019-04-06] MEDS ORDERED: LEVOFLOXACIN 750 MG TAB PO SCH (09:00)
[2019-04-06] MEDS: SYMBICORT 80-4.5 MCG INHALER INHALATION SCH ×2 (09:31→20:45)
[2019-04-06] MEDS: IPRATROPIUM-ALBUTEROL 3 ML NEB INHALATION SCH ×3 (09:31→20:45)
[2019-04-06 09:32] LABS: Calcium 9.7 mg/dL (8.4-10.2); Potassium 4.6 mmol/L (3.5-5.1)
--- NOTE | 2019-04-06 12:46 | P.PN ---
Subjective Progress Note Date: 04/06/19 Principal diagnosis: Acute hypoxic respiratory failure secondary to bilateral lower lobe pneumonia. Consider aspiration. 84-year-old female patient presented to the ED because of generalized weakness and worsening shortness of breath. Her symptoms were progressively getting wo rse over the past few days. She got moved to the hospital and the patient was also having increased cough along with some shortness of breath. No fever. No aspiration. [facility] Her white cell count of 10.3. Creatinine is at 1.5 and the rest of the electrolytes all within normal limits. The proBNP level was 3080. Chest x-ray is showing increased interstitial prominence bilaterally along with some limitation of the right hemidiaphragm. There is also cardiomegaly. This patient has history of breast and colon cancer as well as hypertension. She has been in our hospital back in 2018 for sepsis secondary to right lower lobe pneumonia and acute small bowel obstruction and acute urinary tract infection. At that time she also had A. fib/RVR complicating her picture. She is known to have COPD, previous history of CVA/TIA, hypertension and hyperlipi demia and addition to colon and breast cancer and the patient undergone double mastectomy. She does have some baseline schizophrenia. She has previous history of smoking and she is currently in remission. Subsequently she was admitted to the hospital back in 2018 for shortness of breath and bilateral pneumonia and atrial fibrillation with rapid ventricular response. She has a preserved LV function from August 2018 indicating an ejection fraction of 55- 60% and there is moderate pulmonary hypertension with a PA pressure of 66. The patient had mild aortic sclerosis mild mitral regurgitation and moderate tricuspid regurgitation. The patient is seen today 04/06/2019 in follow-up on the regular medical floor. She is awake and alert in no acute distress. Resting fairly comfortably in bed. No maintaining good O2 saturations in the 90s on 2 L/m per nasal cannula. She's afebrile. Hemodynamically stable. Blood and urine cultures reveal no growth. Sodium 130. Potassium 4.6. Creatinine 1.63. She is currently on DuoNeb inhalations, Symbicort, oral prednisone, Zosyn. Anticoagulated with Eliquis Objective - Vital Signs Vital signs: Vital Signs Temp 96.0 F L 04/06/19 11:29 Pulse 80 04/06/19 11:29 Resp 16 04/06/19 11:29 BP 113/67 04/06/19 11:29 Pulse Ox 94 L 04/06/19 11:29 Intake & Output 04/05/19 04/06/19 04/06/19 18:59 06:59 18:59 Intake Total 600 280 Output Total 450 500 400 Balance 150 -220 -400 Intake: Intake, IV Titration 280 Amount Piperacillin-Tazobactam 3 200 .375 gm In Sodium Chloride 0.9% 100 ml @ 25 mls/hr IVPB Q8HR [facility] Rx# :[id number] Sodium Chloride 0.9% 1, 80 000 ml @ 100 mls/hr IV . Q10H [facility] Rx#:[id number] Oral 600 Output: Urine 450 500 400 Uretheral ([place]) 450 500 Other: Voiding Method Indwelling Catheter Indwelling Catheter Indwelling Catheter # Voids 2 - Exam GENERAL EXAM: Pleasant 84-year-old female patient, comfortable in mild respiratory distress. On 2 L nasal cannula. HEAD: Normocephalic. EYES: Normal reaction of pupils, equal size. NOSE: Clear with pink turbinates. THROAT: No erythema or exudates. NECK: No masses, no JVD. CHEST: No chest wall deformity. LUNGS: Equal air entry with bilateral scattered rhonchi, crackles in the posterior bases. CVS: S1 and S2 normal with no audible murmur, regular rhythm. ABDOMEN: No hepatosplenomegaly, normal bowel sounds, no guarding or rigidity. SPINE: No scoliosis or deformity SKIN: No rashes CENTRAL NERVOUS SYSTEM: Oriented 2. No focal deficits, tone is normal in all 4 extremities. EXTREMITIES: There is no peripheral edema. No clubbing, no cyanosis. Peripheral pulses are intact. - Labs CBC & Chem 7: 04/02/19 13:11 04/06/19 08:14 Labs: Abnormal Lab Results - Last 24 Hours (Table) 04/06/19 Range/Units 08:14 BUN 44 H (7-17) mg/dL Creatinine 1.63 H (0.52-1.04) mg/dL Glucose 100 H (74-99) mg/dL Microbiology - Last 24 Hours (Table) 04/02/19 13:11 Blood Culture - Preliminary Blood No Growth after 72 hours Assessment and Plan Assessment: Impression: 1 acute hypoxic respiratory failure secondary to bilateral lower lobe pneumonia . Consider aspiration 2 COPD 3 chronic atrial fibrillation 4 chronic stage III kidney disease 5 hypertension 6 hyperlipidemia 7 history of breast cancer with a previous lateral meniscectomy 8 history of colon cancer 9 history of small bowel obstruction requiring surgical release of adhesions back in 2018 10 questionable history of schizophrenia Plan: The patient was seen and evaluated by Dr. Peacock. We'll continue the current treatment plan including DuoNeb inhalations, Symbicort, Tessalon Perles, Mucinex. Continue Zosyn. Anticoagulated with Eliquis. We will continue to follow and make further recommendations based on her clinical status. I, the cosigning physician, performed a history & physical examination of the patient. Lungs sounds bilateral scattered rhonchi, crackles in the bases Maintaining good O2 saturations in the 90s on 2 L/m per nasal cannula. I discussed the assessment and plan of care with my nurse practitioner, Marilyn Rodriguez. I attest to the above note as dictated by her.
[2019-04-06] MEDS: OLANZapine ODT 10 MG TAB PO SCH (19:54)
--- NOTE | 2019-04-06 20:04 | P.PN ---
Progress Note - Text Progress Note Date: 04/06/19 Chief Complaint: Cough congested Interval history: This is a 83-year-old patient of Dr. Beth from visiting physician. Chronic stable medical conditions include chronic kidney disease stage III, COPD, hypertension, hyperlipidemia, persistent atrial fibrillation, secondary pulmonary hypertension, moderate tricuspid regurgitation. Patient now the best of historians. Patient presents with worsening shortness of breath. Has a cough. Congested. Denies any obvious fevers and chills. Feeling weak tired rundown. Not able to expectorate. Appetite is okay. She lives at [facility]. Patient does use a cane as needed. Does feel tired and rundown. Today-. Less congested. Overall better. Sitting up in bed. Slight cough.. Review of systems: Was done for constitutional, cardiovascular, GI, pulmonary. relevant finding as above Active Medications Acetaminophen (Tylenol Tab) 650 mg PO BID@ [facility] Last Admin: 04/06/19 19:53 Dose: 650 mg Documented by: Albuterol/Ipratropium (Duoneb 0.5 Mg-3 Mg/3 Ml Soln) 3 ml INHALATION RT-Q4H PRN PRN Reason: shortness of breath Last Admin: 04/03/19 05:05 Dose: 3 ml Documented by: Albuterol/Ipratropium (Duoneb 0.5 Mg-3 Mg/3 Ml Soln) 3 ml INHALATION RT-TID [facility] Last Admin: 04/06/19 13:15 Dose: Not Given Documented by: Amoxicillin/Clavulanate Potassium (Augmentin [id number]) 1 each PO Q12HR [facility] Apixaban (Eliquis) 5 mg PO BID@ [facility] Last Admin: 04/06/19 19:53 Dose: 5 mg Documented by: Atorvastatin Calcium (Lipitor) 10 mg PO DAILY [facility] Last Admin: 04/06/19 08:43 Dose: 10 mg Documented by: Benzonatate (Tessalon Perles) 100 mg PO TID PRN PRN Reason: Cough Last Admin: 04/03/19 08:47 Dose: 100 mg Documented by: Bisacodyl (Dulcolax) 10 mg RECTAL DAILY PRN PRN Reason: Constipation Budesonide/Formoterol Fumarate (Symbicort 80-4.5 Mcg Inhaler) 2 puff INHALATION RT-BID@ [facility] Last Admin: 04/06/19 09:31 Dose: 2 puff Documented by: Calcium Carbonate (Oscal 500+D) 1 each PO BID@ [facility] Last Admin: 04/06/19 19:53 Dose: 1 each Documented by: Diphenoxylate HCl/Atropine (Lomotil) 1 each PO Q4H PRN PRN Reason: Diarrhea Ferrous Sulfate (Feosol) 325 mg PO DAILY@08 [facility] Last Admin: 04/06/19 08:43 Dose: 325 mg Documented by: Gabapentin (Neurontin) 300 mg PO BID@ [facility] Last Admin: 04/06/19 19:53 Dose: 300 mg Documented by: Guaifenesin/Codeine Phosphate (Robitussin Ac) 10 ml PO Q6H [facility] Last Admin: 04/06/19 16:23 Dose: 10 ml Documented by: Hydrocortisone Acetate (Anusol-Hc) 25 mg RECTAL Q12H PRN PRN Reason: Hemorrhoids Methyl Salicylate (Thera-Gesic Cream) 1 applic TOPICAL QID PRN PRN Reason: Pain Metoprolol Tartrate (Lopressor) 25 mg PO BID [facility] Last Admin: 04/06/19 19:54 Dose: 25 mg Documented by: Miscellaneous Information (Pneumonia Protocol Utilized) 1 each PO ONCE PRN PRN Reason: Per Protocol Multivitamins (Theragran) 1 each PO DAILY@08 [facility] Last Admin: 04/06/19 08:43 Dose: 1 each Documented by: Olanzapine (Zyprexa Zydis) 20 mg PO HS@1999 [facility] Last Admin: 04/06/19 19:54 Dose: 20 mg Documented by: Pantoprazole Sodium (Protonix) 40 mg PO BID@ [facility] Last Admin: 04/06/19 19:54 Dose: 40 mg Documented by: Prednisone () 40 mg PO DAILY [facility] Last Admin: 04/06/19 08:43 Dose: 40 mg Documented by: Promethazine HCl (Phenergan) 12.5 mg PO Q12H PRN PRN Reason: Nausea Spironolactone (Aldactone) 25 mg PO Q48H [facility] Last Admin: 04/05/19 10:03 Dose: 25 mg Documented by: Physical examination: VITAL SIGNS: 96, 80, 16, 113/67, 94% on 2 L GENERAL: Propped up in bed, comfortable EYES: Pupils equal. Conjunctiva normal. HEENT: External appearance of nose and ears normal, oral cavity grossly normal. NECK: JVD not raised; masses not palpable. HEART: First and second heart sounds are normal; no edema. LUNGS: Respiratory rate increased, diminished breath sound, some crackles. ABDOMEN: Soft, nontender, liver spleen not palpable, no masses palpable. PSYCH: Patient able to answer some simple questions. Otherwise forgetfull. Investigations: Potassium 4.6 bun 44 creatinine 1.63 Previous testing White count 10.3 hemoglobin 13.6 increased neutrophils potassium 4.7 bun 24 creatinine 1.55 ProBNP 3080 pro calcitonin to 0.17 EKG tracing personally reviewed by me-atrial fibrillation with rate controlled Chest x-ray film personally reviewed by me-shows bilateral infiltrates, cannot rule out vascular prominence Assessment: -Bilateral multilobar pneumonia though predominantly lower lobes suspect gram- negative organism, causing sepsis, POA, improving -Chronic kidney disease stage III probably from nephrosclerosis -Acute kidney injury, likely ATN from sepsis, POA -Acute COPD exacerbation and an ex-smoker -Essential hypertension with chronic kidney disease -Hyperlipidemia -Persistent atrial fibrillation rate control -Secondary probably hypertension -Moderate tricuspid regurgitation -Moderate cognitive impairment -baseline uses a cane Plan: Patient is continued to improve. We'll cyst IV Zosyn to Augmentin. If remains stable Be discharged tomorrow. Repeat labs in the morning. Care was discussed with the patient.
[2019-04-06] MEDS: AMOXIC-POT CLAV 500-125 MG 1 EACH TAB PO SCH (23:05)
[2019-04-07] MEDS: guaiFENesin-Coden 100-10MG/5ML 10 ML CUP PO SCH ×4 (04:03→21:36)
[2019-04-07] MEDS: PANTOPRAZOLE 40 MG TABLET PO SCH ×2 (07:02→21:37)
[2019-04-07 07:27] LABS: Calcium 9.4 mg/dL (8.4-10.2); Potassium 4.7 mmol/L (3.5-5.1)
[2019-04-07] MEDS: CALCIUM CARB-VIT D 500MG-200UN 1 EACH TAB PO SCH ×2 (08:46→21:37)
[2019-04-07] MEDS: GABAPENTIN 300 MG CAP PO SCH ×2 (08:46→21:37)
[2019-04-07] MEDS: MULTIVITAMINS, THERA 1 EACH TAB PO SCH (08:46)
[2019-04-07] MEDS: FERROUS SULFATE 325 MG TAB PO SCH (08:46)
[2019-04-07] MEDS: APIXABAN 5 MG TAB PO SCH (08:46)
[2019-04-07] MEDS: ATORVASTATIN 10 MG TAB PO SCH (08:47)
[2019-04-07] MEDS: AMOXIC-POT CLAV 500-125 MG 1 EACH TAB PO SCH ×2 (08:47→21:37)
[2019-04-07] MEDS: METOPROLOL TARTRATE 25 MG TAB PO SCH ×2 (08:47→21:36)
[2019-04-07] MEDS: predniSONE 20 MG TAB PO SCH (08:47)
[2019-04-07] MEDS: SPIRONOLACTONE 25 MG TAB PO SCH ×2 (08:47→10:59)
[2019-04-07] MEDS: ACETAMINOPHEN TAB 325 MG TAB PO SCH ×2 (08:47→21:36)
[2019-04-07] MEDS: SYMBICORT 80-4.5 MCG INHALER INHALATION SCH ×2 (08:51→20:17)
[2019-04-07] MEDS: IPRATROPIUM-ALBUTEROL 3 ML NEB INHALATION SCH ×3 (08:52→20:15)
--- NOTE | 2019-04-07 10:56 | XR ---
EXAMINATION TYPE: XR chest 1V DATE OF EXAM: 04/07/2019 COMPARISON: 04/05/2017 HISTORY: Pneumonia. TECHNIQUE: Single frontal view of the chest is obtained. FINDINGS: Improved left basilar opacity. Stable interstitial prominence. Resolved left midlung opaci ty. Trace left pleural effusion remains. Cardiomediastinal silhouette is stable and enlarged. No acut e osseous pathology. IMPRESSION: Resolved left midlung opacity and improved left basilar opacity with stable trace left p leural effusion and chronic interstitial prominence.
--- NOTE | 2019-04-07 12:24 | P.PN ---
Subjective Progress Note Date: 04/07/19 84-year-old female patient presented to the ED because of generalized weakness and worsening shortness of breath. Her symptoms were progressively getting worse over the past few days. She got moved to the hospital and the patient was also having increased cough along with some shortness of breath. No fever. No aspiration. The patient lives of a senior care facility. Her white cell count of 10.3. Creatinine is at 1.5 and the rest of the electrolytes all within normal limits. The proBNP level was 3080. Chest x-ray is showing increased interstitial prominence bilaterally along with some limitation of the right hemidiaphragm. There is also cardiomegaly. This patient has history of breast and colon cancer as well as hypertension. She has been in our hospital back in 2018 for sepsis secondary to right lower lobe pneumonia and acute small bowel obstruction and acute urinary tract infect ion. At that time she also had A. fib/RVR complicating her picture. She is known to have COPD, previous history of CVA/TIA, hypertension and hyperlipidemia and addition to colon and breast cancer and the patient undergone double mastectomy. She does have some baseline schizophrenia. She has previous history of smoking and she is currently in remission. Subsequently she was admitted to the hospital back in 2018 for shortness of breath and bilateral pneumonia and atrial fibrillation with rapid ventricular response. She has a preserved LV function from August 2018 indicating an ejection fraction of 55- 60% and there is moderate pulmonary hypertension with a PA pressure of 66. The patient had mild aortic sclerosis mild mitral regurgitation and moderate tricuspid regurgitation. The patient is seen today 04/06/2019 in follow-up on the regular medical floor. She is awake and alert in no acute distress. Resting fairly comfortably in bed. No maintaining good O2 saturations in the 90s on 2 L/m per nasal cannula. She's afebrile. Hemodynamically stable. Blood and urine cultures reveal no growth. Sodium 130. Potassium 4.6. Creatinine 1.63. She is currently on DuoNeb inhalations, Symbicort, oral prednisone, Zosyn. Anticoagulated with Eliquis On 04/07/2019 intubation is being seen for a follow-up. The patient is still struggling with her breathing. On today's evaluation was quite congested and she had significant amount of rhonchi. She is unable to bring up much sputum although she has a congested cough. For that reason, I repeated the chest x-ray showed improved left basilar opacity and there is some stable interstitial prominence. There is also resolved left mid lung opacity. There is a trace left-sided pleural effusion. The cardiac size and silhouette was within normal limits. The patient was receiving a combination of antibiotics utilizing Zosyn and Levaquin and he was further switched to by mouth Augmentin by the primary care team. This may be a reasonable changes lung in the patient's x-ray findings are improving. Also the patient was switched also to oral prednisone. She is on long-term anticoagulation with Eliquis. She is taking the appropriate antitussive medication. Renal function is abnormal with a creatinine of 1.6 and the patient is known to have a component of chronic renal disease, stage III kidney disease. Objective - Vital Signs Vital signs: Vital Signs Temp 97.6 F 04/07/19 05:00 Pulse 88 04/07/19 09:04 Resp 18 04/07/19 05:00 BP 119/59 04/07/19 05:00 Pulse Ox 97 04/07/19 05:00 Intake & Output 04/06/19 04/07/19 04/07/19 18:59 06:59 18:59 Intake Total 780 1250 Output Total 1250 350 Balance -470 1250 -350 Intake: Intake, IV Titration 180 100 Amount Piperacillin-Tazobactam 3 100 100 .375 gm In Sodium Chloride 0.9% 100 ml @ 25 mls/hr IVPB Q8HR [facility] Rx# :[id number] Sodium Chloride 0.9% 1, 80 000 ml @ 100 mls/hr IV . Q10H [facility] Rx#:[id number] Oral 600 1150 Output: Urine 1250 350 Other: Voiding Method Indwelling Catheter Indwelling Catheter Indwelling Catheter - Exam GENERAL EXAM: Pleasant 84-year-old female patient, comfortable in mild respiratory distress. On 2 L nasal cannula. HEAD: Normocephalic. EYES: Normal reaction of pupils, equal size. NOSE: Clear with pink turbinates. THROAT: No erythema or exudates. NECK: No masses, no JVD. CHEST: No chest wall deformity. LUNGS: Equal air entry with bilateral scattered rhonchi, crackles in the posterior bases. CVS: S1 and S2 normal with no audible murmur, regular rhythm. ABDOMEN: No hepatosplenomegaly, normal bowel sounds, no guarding or rigidity. SPINE: No scoliosis or deformity SKIN: No rashes CENTRAL NERVOUS SYSTEM: Oriented 2. No focal deficits, tone is normal in all 4 extremities. EXTREMITIES: There is no peripheral edema. No clubbing, no cyanosis. Peripheral pulses are intact. - Labs CBC & Chem 7: 04/02/19 13:11 04/07/19 06:30 Labs: Abnormal Lab Results - Last 24 Hours (Table) 04/07/19 Range/Units 06:30 BUN 47 H (7-17) mg/dL Creatinine 1.65 H (0.52-1.04) mg/dL Glucose 105 H (74-99) mg/dL Microbiology - Last 24 Hours (Table) 04/02/19 13:11 Blood Culture - Preliminary Blood No Growth after 96 hours Assessment and Plan Plan: Impression: 1 acute hypoxic respiratory failure secondary to bilateral lower lobe pneumonia . Consider aspiration and the patient was initially treated with a combination of Zosyn and Levaquin and subsequently she was switched to Augmentin. She also had a component of COPD exacerbation treated with IV Solu-Medrol and bronchodilators. Follow-up chest x-ray from today shows improvement in the left lower lobe consolidation. Nevertheless the patient continues to have a congested cough and unable to perform adequate pulmonate toileting. Wondering whether she would benefit from a bronchoscopy. 2 COPD exacerbation secondary to above 3 chronic atrial fibrillation 4 chronic stage III kidney disease, creatinine is stable 5 hypertension 6 hyperlipidemia 7 history of breast cancer with a previous lateral meniscectomy 8 history of colon cancer 9 history of small bowel obstruction requiring surgical release of adhesions back in 2018 10 questionable history of schizophrenia Plan Reviewed the follow-up chest x-ray from today. The results are encouraging. Nevertheless the patient is still congested and she has Mucus within the lungs. Unable to perform adequate pulmonary toileting. May consider bronchoscopy if no improvement. Her continue to follow this patient along with the medical team. The rest of the medications were appropriate for the time being.
--- NOTE | 2019-04-07 19:35 | P.PN ---
Progress Note - Text Progress Note Date: 04/07/19 Chief Complaint: Cough congested Interval history: This is a 83-year-old patient of Dr. Beth from visiting physician. Chronic stable medical conditions include chronic kidney disease stage III, COPD, hypertension, hyperlipidemia, persistent atrial fibrillation, secondary pulmonary hypertension, moderate tricuspid regurgitation. Patient now the best of historians. Patient presents with worsening shortness of breath. Has a cough. Congested. Denies any obvious fevers and chills. Feeling weak tired rundown. Not able to expectorate. Appetite is okay. She lives at [facility]. Patient does use a cane as needed. Does feel tired and rundown. Today-. Some congestion with coughing. Unable to break up any sputum. No fever no chills. Seen by pulmonary Dr. Peacock. Planning bronchial lavage tomorrow... Review of systems: Was done for constitutional, cardiovascular, GI, pulmonary. relevant finding as above Active Medications Acetaminophen (Tylenol Tab) 650 mg PO BID@ [facility] Last Admin: 04/07/19 08:47 Dose: 650 mg Documented by: Albuterol/Ipratropium (Duoneb 0.5 Mg-3 Mg/3 Ml Soln) 3 ml INHALATION RT-Q4H PRN PRN Reason: shortness of breath Last Admin: 04/03/19 05:05 Dose: 3 ml Documented by: Albuterol/Ipratropium (Duoneb 0.5 Mg-3 Mg/3 Ml Soln) 3 ml INHALATION RT-TID [facility] Last Admin: 04/07/19 12:21 Dose: 3 ml Documented by: Amoxicillin/Clavulanate Potassium (Augmentin 500-125 Mg) 1 each PO Q12HR [facility] Last Admin: 04/07/19 08:47 Dose: 1 each Documented by: Apixaban (Eliquis) 2.5 mg PO BID@ [facility] Atorvastatin Calcium (Lipitor) 10 mg PO DAILY [facility] Last Admin: 04/07/19 08:47 Dose: 10 mg Documented by: Benzonatate (Tessalon Perles) 100 mg PO TID PRN PRN Reason: Cough Last Admin: 04/03/19 08:47 Dose: 100 mg Documented by: Bisacodyl (Dulcolax) 10 mg RECTAL DAILY PRN PRN Reason: Constipation Budesonide/Formoterol Fumarate (Symbicort 80-4.5 Mcg Inhaler) 2 puff INHALATION RT-BID@ [facility] Last Admin: 04/07/19 08:51 Dose: 2 puff Documented by: Calcium Carbonate (Oscal 500+D) 1 each PO BID@ [facility] Last Admin: 04/07/19 08:46 Dose: 1 each Documented by: Diphenoxylate HCl/Atropine (Lomotil) 1 each PO Q4H PRN PRN Reason: Diarrhea Ferrous Sulfate (Feosol) 325 mg PO DAILY@08 [facility] Last Admin: 04/07/19 08:46 Dose: 325 mg Documented by: Gabapentin (Neurontin) 300 mg PO BID@ [facility] Last Admin: 04/07/19 08:46 Dose: 300 mg Documented by: Guaifenesin/Codeine Phosphate (Robitussin Ac) 10 ml PO Q6H [facility] Last Admin: 04/07/19 15:50 Dose: 10 ml Documented by: Hydrocortisone Acetate (Anusol-Hc) 25 mg RECTAL Q12H PRN PRN Reason: Hemorrhoids Methyl Salicylate (Thera-Gesic Cream) 1 applic TOPICAL QID PRN PRN Reason: Pain Metoprolol Tartrate (Lopressor) 25 mg PO BID [facility] Last Admin: 04/07/19 08:47 Dose: 25 mg Documented by: Miscellaneous Information (Pneumonia Protocol Utilized) 1 each PO ONCE PRN PRN Reason: Per Protocol Multivitamins (Theragran) 1 each PO DAILY@0800 [facility] Last Admin: 04/07/19 08:46 Dose: 1 each Documented by: Olanzapine (Zyprexa Zydis) 20 mg PO HS@1999 [facility] Last Admin: 04/06/19 19:54 Dose: 20 mg Documented by: Pantoprazole Sodium (Protonix) 40 mg PO BID@ [facility] Last Admin: 04/07/19 07:02 Dose: 40 mg Documented by: Prednisone () 40 mg PO DAILY [facility] Last Admin: 04/07/19 08:47 Dose: 40 mg Documented by: Promethazine HCl (Phenergan) 12.5 mg PO Q12H PRN PRN Reason: Nausea Spironolactone (Aldactone) 25 mg PO Q48H [facility] Last Admin: 04/07/19 10:59 Dose: 25 mg Documented by: Physical examination: VITAL SIGNS: 97.7, 85, was 22, 1 28 x 78, 97% on 2 L GENERAL: Sitting up in bed, comfortable EYES: Pupils equal. Conjunctiva normal. HEENT: External appearance of nose and ears normal, oral cavity grossly normal. NECK: JVD not raised; masses not palpable. HEART: First and second heart sounds are normal; no edema. LUNGS: Respiratory rate increased, diminished breath sound, some expiratory crackles. ABDOMEN: Soft, nontender, liver spleen not palpable, no masses palpable. PSYCH: Patient able to answer some simple questions. Otherwise forgetfull. Investigations: Bun 47 creatinine 1.65 Previous testing White count 10.3 hemoglobin 13.6 increased neutrophils potassium 4.7 bun 24 creatinine 1.55 ProBNP 3080 pro calcitonin to 0.17 EKG tracing personally reviewed by me-atrial fibrillation with rate controlled Chest x-ray film personally reviewed by me-shows bilateral infiltrates, cannot rule out vascular prominence Assessment: -Bilateral multilobar pneumonia though predominantly lower lobes suspect gram- negative organism, causing sepsis, POA, improving -Chronic kidney disease stage III probably from nephrosclerosis -Acute kidney injury, likely ATN from sepsis, POA -Acute COPD exacerbation and an ex-smoker -Essential hypertension with chronic kidney disease -Hyperlipidemia -Persistent atrial fibrillation rate control -Secondary probably hypertension -Moderate tricuspid regurgitation -Moderate cognitive impairment -baseline uses a cane Plan: Continue current medication. Plan. I agree patient will benefit from bronchial lavage. Dr. Peacock coordinating that that to be scheduled for tomorrow
[2019-04-07] MEDS: APIXABAN 2.5 MG TABLET PO SCH (21:27)
[2019-04-07] MEDS: OLANZapine ODT 10 MG TAB PO SCH (21:36)
[2019-04-08] MEDS: guaiFENesin-Coden 100-10MG/5ML 10 ML CUP PO SCH ×4 (04:22→22:01)
[2019-04-08] MEDS: PANTOPRAZOLE 40 MG TABLET PO SCH ×2 (06:11→19:34)
[2019-04-08] MEDS: SYMBICORT 80-4.5 MCG INHALER INHALATION SCH ×2 (07:37→19:51)
[2019-04-08] MEDS: IPRATROPIUM-ALBUTEROL 3 ML NEB INHALATION SCH ×3 (07:37→19:52)
[2019-04-08 08:47] LABS: Calcium 9.3 mg/dL (8.4-10.2); Potassium 4.1 mmol/L (3.5-5.1)
[2019-04-08] MEDS: GABAPENTIN 300 MG CAP PO SCH ×2 (09:20→19:34)
[2019-04-08] MEDS: ATORVASTATIN 10 MG TAB PO SCH (09:20)
[2019-04-08] MEDS: METOPROLOL TARTRATE 25 MG TAB PO SCH ×2 (09:20→19:34)
[2019-04-08] MEDS: MULTIVITAMINS, THERA 1 EACH TAB PO SCH (09:20)
[2019-04-08] MEDS: predniSONE 20 MG TAB PO SCH (09:20)
[2019-04-08] MEDS: CALCIUM CARB-VIT D 500MG-200UN 1 EACH TAB PO SCH ×2 (09:20→19:34)
[2019-04-08] MEDS: FERROUS SULFATE 325 MG TAB PO SCH (09:20)
[2019-04-08] MEDS: ACETAMINOPHEN TAB 325 MG TAB PO SCH ×2 (09:21→19:34)
[2019-04-08] MEDS: AMOXIC-POT CLAV 500-125 MG 1 EACH TAB PO SCH ×2 (09:22→19:34)
[2019-04-08] MEDS: APIXABAN 2.5 MG TABLET PO SCH ×2 (10:21→19:34)
[2019-04-08] MEDS ORDERED: ALPRAZolam 0.25 MG TAB PO STA (11:03)
--- NOTE | 2019-04-08 13:26 | P.PN ---
Subjective Progress Note Date: 04/08/19 Principal diagnosis: Acute hypoxic respiratory failure, secondary to bilateral aspiration pneumonia, and acute exacerbation of COPD. Patient was seen on 04/18/2019, patient continues to have intermittent episodes of cough, feels congested, unable to clear her secretions well. Remains congested, continues to have left basilar opacity on the chest x-ray, suggestive of significant left lower lobe infiltrate. Right side has cleared significantly. There is also trace of left pleural effusion. Clinically the patient is feeling better but she continues to have difficulty with clearing his secretions. Hence I will arrange for bronchoscopy and lavage of the lower lobes, most likely the left lower lobe tomorrow. In the meantime we'll continue the patient on antibiotics, she was on Zosyn and Levaquin, and she was switched to oral Augmentin by the primary care physician. Electrolytes are normal creatinine is up to 1.44 it was 1.65 yesterday and 1.18 on admission. Objective - Vital Signs Vital signs: Vital Signs Temp 97.9 F 04/08/19 12:15 Pulse 80 04/08/19 12:15 Resp 22 04/08/19 12:15 BP 111/57 04/08/19 12:15 Pulse Ox 95 04/08/19 12:15 Intake & Output 04/07/19 04/08/19 04/08/19 18:59 06:59 18:59 Intake Total 1100 790 Output Total 1550 600 Balance -450 190 Intake: Intake, IV Titration 100 Amount Piperacillin-Tazobactam 3 100 .375 gm In Sodium Chloride 0.9% 100 ml @ 25 mls/hr IVPB Q8HR [facility] Rx# :[id number] Oral 1000 790 Output: Urine 1550 600 Uretheral ([place]) 600 Other: Voiding Method Indwelling Catheter Indwelling Catheter - Exam GENERAL EXAM: Pleasant 84-year-old female patient, comfortable in mild respiratory distress. On 2 L nasal cannula. HEENT: PERRLA, EOMI, no icterus. CHEST: No chest wall deformity. LUNGS: Equal air entry crackles or rhonchi and wheezes noted bilaterally more so on forced expiratory maneuver. CVS: S1 and S2 normal with no audible murmur, regular rhythm. ABDOMEN: No hepatosplenomegaly, normal bowel sounds, no guarding or rigidity. SPINE: No scoliosis or deformity SKIN: No rashes CENTRAL NERVOUS SYSTEM: Oriented 2. No focal deficits, tone is normal in all 4 extremities. EXTREMITIES: There is no peripheral edema. No clubbing, no cyanosis. Peripheral pulses are intact. - Labs CBC & Chem 7: 04/02/19 13:11 04/08/19 08:11 Labs: Abnormal Lab Results - Last 24 Hours (Table) 04/08/19 Range/Units 08:11 BUN 43 H (7-17) mg/dL Creatinine 1.44 H (0.52-1.04) mg/dL Glucose 132 H (74-99) mg/dL Microbiology - Last 24 Hours (Table) 04/02/19 13:11 Blood Culture - Preliminary Blood No Growth after 120 hours Assessment and Plan Assessment: Impression: Acute hypoxic respiratory failure secondary to bilateral pneumonia, possibly aspiration related unless proven otherwise. Presently patient is on Augmentin and I plan to perform bronchoscopy on the patient tomorrow. 2 acute exacerbation of COPD remains on bronchodilators and steroids. 3 chronic atrial fibrillation on Eliquis 4 chronic kidney disease stage III 5 hypertension 6 history of colon cancer 7 history of small bowel obstruction requiring surgery in 2018. 8 hyperlipidemia. Recommendation: Will plan bronchoscopy tomorrow, in the meantime continue present bronchodilators and antibiotics, will continue to follow. Time with Patient: Less than 30
[2019-04-08 15:10] VITALS: BMI 24.4
[2019-04-08] MEDS: BENZONATATE 100 MG CAP PO PRN (15:35)
--- NOTE | 2019-04-08 17:37 | P.PN ---
Progress Note - Text Progress Note Date: 04/08/19 Chief Complaint: Cough congested Interval history: This is a 83-year-old patient of Dr. Beth from visiting physician. Chronic stable medical conditions include chronic kidney disease stage III, COPD, hypertension, hyperlipidemia, persistent atrial fibrillation, secondary pulmonary hypertension, moderate tricuspid regurgitation. Patient now the best of historians. Patient presents with worsening shortness of breath. Has a cough. Congested. Denies any obvious fevers and chills. Feeling weak tired rundown. Not able to expectorate. Appetite is okay. She lives at [facility]. Patient does use a cane as needed. Does feel tired and rundown. Today-. Remains with expiratory congestion. Tolerating some diet. Walks of coughing. Tired Review of systems: Was done for constitutional, cardiovascular, GI, pulmonary. relevant finding as above Active Medications Acetaminophen (Tylenol Tab) 650 mg PO BID@799,1999 [facility] Last Admin: 04/08/19 09:21 Dose: 650 mg Documented by: Albuterol/Ipratropium (Duoneb 0.5 Mg-3 Mg/3 Ml Soln) 3 ml INHALATION RT-Q4H PRN PRN Reason: shortness of breath Last Admin: 04/03/19 05:05 Dose: 3 ml Documented by: Albuterol/Ipratropium (Duoneb 0.5 Mg-3 Mg/3 Ml Soln) 3 ml INHALATION RT-TID [facility] Last Admin: 04/08/19 11:10 Dose: 3 ml Documented by: Amoxicillin/Clavulanate Potassium (Augmentin 500-125 Mg) 1 each PO Q12HR [facility] Last Admin: 04/08/19 09:22 Dose: 1 each Documented by: Apixaban (Eliquis) 2.5 mg PO BID@ [facility] Last Admin: 04/08/19 10:21 Dose: 2.5 mg Documented by: Atorvastatin Calcium (Lipitor) 10 mg PO DAILY [facility] Last Admin: 04/08/19 09:20 Dose: 10 mg Documented by: Benzonatate (Tessalon Perles) 100 mg PO TID PRN PRN Reason: Cough Last Admin: 04/08/19 15:35 Dose: 100 mg Documented by: Bisacodyl (Dulcolax) 10 mg RECTAL DAILY PRN PRN Reason: Constipation Budesonide/Formoterol Fumarate (Symbicort 80-4.5 Mcg Inhaler) 2 puff INHALATION RT-BID@ [facility] Last Admin: 04/08/19 07:37 Dose: 2 puff Documented by: Calcium Carbonate (Oscal 500+D) 1 each PO BID@ [facility] Last Admin: 04/08/19 09:20 Dose: 1 each Documented by: Diphenoxylate HCl/Atropine (Lomotil) 1 each PO Q4H PRN PRN Reason: Diarrhea Ferrous Sulfate (Feosol) 325 mg PO DAILY@08 [facility] Last Admin: 04/08/19 09:20 Dose: 325 mg Documented by: Gabapentin (Neurontin) 300 mg PO BID@ [facility] Last Admin: 04/08/19 09:20 Dose: 300 mg Documented by: Guaifenesin/Codeine Phosphate (Robitussin Ac) 10 ml PO Q6H [facility] Last Admin: 04/08/19 15:35 Dose: 10 ml Documented by: Hydrocortisone Acetate (Anusol-Hc) 25 mg RECTAL Q12H PRN PRN Reason: Hemorrhoids Methyl Salicylate (Thera-Gesic Cream) 1 applic TOPICAL QID PRN PRN Reason: Pain Metoprolol Tartrate (Lopressor) 25 mg PO BID [facility] Last Admin: 04/08/19 09:20 Dose: 25 mg Documented by: Miscellaneous Information (Pneumonia Protocol Utilized) 1 each PO ONCE PRN PRN Reason: Per Protocol Multivitamins (Theragran) 1 each PO DAILY@0800 [facility] Last Admin: 04/08/19 09:20 Dose: 1 each Documented by: Olanzapine (Zyprexa Zydis) 20 mg PO HS@1999 [facility] Last Admin: 04/07/19 21:36 Dose: 20 mg Documented by: Pantoprazole Sodium (Protonix) 40 mg PO BID@ [facility] Last Admin: 04/08/19 06:11 Dose: Not Given Documented by: Prednisone () 40 mg PO DAILY [facility] Last Admin: 04/08/19 09:20 Dose: 40 mg Documented by: Promethazine HCl (Phenergan) 12.5 mg PO Q12H PRN PRN Reason: Nausea Spironolactone (Aldactone) 25 mg PO Q48H [facility] Last Admin: 04/07/19 10:59 Dose: 25 mg Documented by: Physical examination: VITAL SIGNS: 97.9, 80, 22, 111/57, 95% on 2 L GENERAL: Sitting up in bed, tired EYES: Pupils equal. Conjunctiva normal. HEENT: External appearance of nose and ears normal, oral cavity grossly normal. NECK: JVD not raised; masses not palpable. HEART: First and second heart sounds are normal; no edema. LUNGS: Respiratory rate increased, diminished breath sound, some expiratory crackles. ABDOMEN: Soft, nontender, liver spleen not palpable, no masses palpable. PSYCH: Patient able to answer some simple questions. Otherwise forgetfull. Investigations: Bun 43, creatinine 1.44 Previous testing White count 10.3 hemoglobin 13.6 increased neutrophils potassium 4.7 bun 24 creatinine 1.55 ProBNP 3080 pro calcitonin to 0.17 EKG tracing personally reviewed by me-atrial fibrillation with rate controlled Chest x-ray film personally reviewed by me-shows bilateral infiltrates, cannot rule out vascular prominence Assessment: -Bilateral multilobar pneumonia though predominantly lower lobes suspect gram- negative organism, causing sepsis, POA, improving -Patient still remains to have a congested lung. Will benefit from lavage. Spoke to TURNER IN from pulmonary and also spoke to the nurse. Patient is being rescheduled for tomorrow for lavage. -Chronic kidney disease stage III probably from nephrosclerosis -Acute kidney injury, likely ATN from sepsis, POA -Acute COPD exacerbation and an ex-smoker -Essential hypertension with chronic kidney disease -Hyperlipidemia -Persistent atrial fibrillation rate control -Secondary probably hypertension -Moderate tricuspid regurgitation -Moderate cognitive impairment -baseline uses a cane Plan: Continue current medications. Patient is being rescheduled for bronchoscopy and lavage for tomorrow. The meantime current medications to continue. Decrease prednisone tomorrow.
[2019-04-08] MEDS: OLANZapine ODT 10 MG TAB PO SCH (19:34)
[2019-04-09] MEDS: PANTOPRAZOLE 40 MG TABLET PO SCH ×2 (03:51→19:35)
[2019-04-09] MEDS: guaiFENesin-Coden 100-10MG/5ML 10 ML CUP PO SCH ×4 (03:51→21:43)
[2019-04-09 07:58] LABS: Calcium 9.4 mg/dL (8.4-10.2); Potassium 4.7 mmol/L (3.5-5.1)
[2019-04-09] MEDS: ACETAMINOPHEN TAB 325 MG TAB PO SCH ×2 (08:12→19:35)
[2019-04-09] MEDS: AMOXIC-POT CLAV 500-125 MG 1 EACH TAB PO SCH ×2 (08:14→19:36)
[2019-04-09] MEDS: ATORVASTATIN 10 MG TAB PO SCH (08:14)
[2019-04-09] MEDS: GABAPENTIN 300 MG CAP PO SCH ×2 (08:14→19:35)
[2019-04-09] MEDS: MULTIVITAMINS, THERA 1 EACH TAB PO SCH (08:14)
[2019-04-09] MEDS: APIXABAN 2.5 MG TABLET PO SCH ×2 (08:14→19:35)
[2019-04-09] MEDS: predniSONE 10 MG TAB PO SCH (08:14)
[2019-04-09] MEDS: SPIRONOLACTONE 25 MG TAB PO SCH (08:14)
[2019-04-09] MEDS: CALCIUM CARB-VIT D 500MG-200UN 1 EACH TAB PO SCH ×2 (08:14→19:35)
[2019-04-09] MEDS: FERROUS SULFATE 325 MG TAB PO SCH (08:14)
[2019-04-09] MEDS: METOPROLOL TARTRATE 25 MG TAB PO SCH ×2 (08:14→19:35)
[2019-04-09] MEDS: IPRATROPIUM-ALBUTEROL 3 ML NEB INHALATION SCH ×3 (08:55→20:17)
[2019-04-09] MEDS: SYMBICORT 80-4.5 MCG INHALER INHALATION SCH ×2 (08:55→20:17)
[2019-04-09] MEDS ORDERED: GLYCOPYRROLATE 0.2 MG/ML 2 ML VIAL ONE (11:00)
[2019-04-09] MEDS ORDERED: LIDOCAINE 1% INJ 10MG/ML (20 ML MDV) ONE (11:00)
[2019-04-09] MEDS ORDERED: MIDAZOLAM 2 MG/2 ML VIAL ONE (11:00)
[2019-04-09] MEDS ORDERED: KETAMINE 10 MG/ML 20 ML VIAL ONE (11:00)
[2019-04-09] MEDS ORDERED: LACTATED RINGERS 500 ML IV ONE (11:06)
--- NOTE | 2019-04-09 11:28 | P.PN ---
Subjective Progress Note Date: 04/09/19 Principal diagnosis: Acute hypoxic respiratory failure secondary to bilateral lower lobe pneumonia. Consider aspiration. 84-year-old female patient presented to the ED because of generalized weakness and worsening shortness of breath. Her symptoms were progressively getting wo rse over the past few days. She got moved to the hospital and the patient was also having increased cough along with some shortness of breath. No fever. No aspiration. The patient lives of a long term facility. Her white cell count of 10.3. Creatinine is at 1.5 and the rest of the electrolytes all within normal limits. The proBNP level was 3080. Chest x-ray is showing increased interstitial prominence bilaterally along with some limitation of the right hemidiaphragm. There is also cardiomegaly. This patient has history of breast and colon cancer as well as hypertension. She has been in our hospital back in 2018 for sepsis secondary to right lower lobe pneumonia and acute small bowel obstruction and acute urinary tract infection. At that time she also had A. fib/RVR complicating her picture. She is known to have COPD, previous history of CVA/TIA, hypertension and hyperlipi demia and addition to colon and breast cancer and the patient undergone double mastectomy. She does have some baseline schizophrenia. She has previous history of smoking and she is currently in remission. Subsequently she was admitted to the hospital back in 2018 for shortness of breath and bilateral pneumonia and atrial fibrillation with rapid ventricular response. She has a preserved LV function from August 2018 indicating an ejection fraction of 55- 60% and there is moderate pulmonary hypertension with a PA pressure of 66. The patient had mild aortic sclerosis mild mitral regurgitation and moderate tricuspid regurgitation. The patient is seen today 04/09/2019 in follow-up on the regular medical floor. She has been slow to progress. Continue with the loose congested cough. The plan is for bronchoscopy with BAL with Dr. Puckett today. She's been maintained on DuoNeb inhalations and Symbicort, Augmentin. Maintaining O2 saturations in the mid 90s on 2 L/m per nasal cannula. She's afebrile. Hemodynamically stable. Sodium 138. Potassium 4.7. Creatinine 1.16. Objective - Vital Signs Vital signs: Vital Signs Temp 97.3 F L 04/09/19 04:59 Pulse 82 04/09/19 09:06 Resp 18 04/09/19 04:59 BP 129/76 04/09/19 04:59 Pulse Ox 95 04/09/19 04:59 Intake & Output 04/08/19 04/09/19 04/09/19 18:59 06:59 18:59 Intake Total 480 780 Output Total 2500 1050 Balance -2019 Weight 81.647 kg Intake: Oral 480 780 Output: Urine 2500 1050 Uretheral ([place]) 1200 1050 Other: Voiding Method Indwelling Catheter Indwelling Catheter Indwelling Catheter # Voids 2 - Exam GENERAL EXAM: Pleasant 84-year-old female patient, comfortable in mild respiratory distress. On 2 L nasal cannula. HEAD: Normocephalic. EYES: Normal reaction of pupils, equal size. NOSE: Clear with pink turbinates. THROAT: No erythema or exudates. NECK: No masses, no JVD. CHEST: No chest wall deformity. LUNGS: Equal air entry with bilateral scattered rhonchi, crackles in the posterior bases. CVS: S1 and S2 normal with no audible murmur, regular rhythm. ABDOMEN: No hepatosplenomegaly, normal bowel sounds, no guarding or rigidity. SPINE: No scoliosis or deformity SKIN: No rashes CENTRAL NERVOUS SYSTEM: Oriented 2. No focal deficits, tone is normal in all 4 extremities. EXTREMITIES: There is no peripheral edema. No clubbing, no cyanosis. Peripheral pulses are intact. - Labs CBC & Chem 7: 04/02/19 13:11 04/09/19 07:03 Labs: Abnormal Lab Results - Last 24 Hours (Table) 04/09/19 Range/Units 07:03 BUN 42 H (7-17) mg/dL Creatinine 1.16 H (0.52-1.04) mg/dL Microbiology - Last 24 Hours (Table) 04/02/19 13:11 Blood Culture - Final Blood No Growth after 144 hours Assessment and Plan Assessment: Impression: 1 acute hypoxic respiratory failure secondary to bilateral lower lobe pneumonia . Consider aspiration. Plan is for bronchoscopy with BAL today. 2 COPD 3 chronic atrial fibrillation 4 chronic stage III kidney disease 5 hypertension 6 hyperlipidemia 7 history of breast cancer with a previous lateral meniscectomy 8 history of colon cancer 9 history of small bowel obstruction requiring surgical release of adhesions back in 2018 10 questionable history of schizophrenia Plan: The patient was seen and evaluated by Dr. Puckett. The plan is for bronchoscopy with BAL today. We'll continue the current treatment plan including DuoNeb inh alations, Symbicort, Tessalon Perles, Mucinex. Continue Augmentin. Anticoagulated with Eliquis. We will continue to follow and make further recommendations based on her clinical status. I, the cosigning physician, performed a history & physical examination of the patient. Lungs sounds bilateral scattered rhonchi, crackles in the bases Maintaining good O2 saturations in the 90s on 2 L/m per nasal cannula. I discussed the assessment and plan of care with my nurse practitioner, Marilyn Rodriguez. I attest to the above note as dictated by her.
--- NOTE | 2019-04-09 11:50 | PCN ---
PROCEDURE NOTE BRONCHOSCOPY AND RANDOM BRONCHOALVEOLAR LAVAGE AND WASHING OF BOTH LUNGS AND DIFFERENT LOBES: PREOPERATIVE DIAGNOSIS: Severe purulent tracheobronchitis, difficulty clearing secretions. 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 PROCEDURE: Bronchoscopy and bronchoalveolar lavage as well as random washing of both lungs and different lobes on both sides. PROCEDURE: The patient was placed in a supine position, she was already prepared according to the bronchoscopy protocol. O2 was applied via Ventimask over her mouth, and before the procedure was started, the patient was monitored with a pulse oximetry continuously. Blood pressure was intermittently monitored and cardiac rhythm was continuously monitored. After adequate IV conscious sedation, the bronchoscope was inserted through the left naris down to the area of the vocal cords. Purulent secretions were noted over the vocal cords and in the area of the pyriform sinuses, the secretions were suctioned, and they were noted to be quite thick and tenacious. Then, the bronchoscope was advanced through the vocal cords down to the area of the trachea. Thorough examination was done of the trachea, arnav, right upper lobe, right middle lobe, right lower lobe, left upper lobe, lingula and left lower lobe. There was evidence of tracheal bronchomalacia. There was also evidence of severe purulent tracheobronchitis and purulent secretions noted in the distal trachea as well as right upper lobe, right middle lobe, right lower lobe, left upper lobe, lingula and left lower lobe. Lavage and washings were performed from the different lobes, and the purulent secretions were suctioned, and sent for different diagnostic studies. The procedure was well tolerated, no evidence of any immediate complications. Anesthesia for the procedure was IV conscious sedation. MMODL / IJN: [id number] /
[2019-04-09 16:56] LABS: Appearance,BF Cloudy; Color,BF Colorless; Nucleated Cells, Body Fluid 5500 /uL; RBC, Body Fluid 3700 /uL
[2019-04-09 17:01] LABS: Mononuclear WBC,Body Fluid 6 %; Polynuclear WBC,Body Fluid 94 %; Total Cells Counted,Body Fluid 100
--- NOTE | 2019-04-09 17:02 | P.PN ---
Progress Note - Text Progress Note Date: 04/09/19 Chief Complaint: Cough congested Interval history: This is a 83-year-old patient of Dr. Beth from visiting physician. Chronic stable medical conditions include chronic kidney disease stage III, COPD, hypertension, hyperlipidemia, persistent atrial fibrillation, secondary pulmonary hypertension, moderate tricuspid regurgitation. Patient now the best of historians. Patient presents with worsening shortness of breath. Has a cough. Congested. Denies any obvious fevers and chills. Feeling weak tired rundown. Not able to expectorate. Appetite is okay. She lives at [facility]. Patient does use a cane as needed. Does feel tired and rundown. Diagnosis bilateral pneumonia. Responded well to antibiotics. Did improve but had remained congested. Today-. Still congested. Coronary congested cough. Pending bronchoscopy with lavage this afternoon. Review of systems: Was done for constitutional, cardiovascular, GI, pulmonary. relevant finding as above Active Medications Acetaminophen (Tylenol Tab) 650 mg PO BID@ [facility] Last Admin: 04/09/19 08:12 Dose: 650 mg Documented by: Albuterol/Ipratropium (Duoneb 0.5 Mg-3 Mg/3 Ml Soln) 3 ml INHALATION RT-Q4H PRN PRN Reason: shortness of breath Last Admin: 04/03/19 05:05 Dose: 3 ml Documented by: Albuterol/Ipratropium (Duoneb 0.5 Mg-3 Mg/3 Ml Soln) 3 ml INHALATION RT-TID [facility] Last Admin: 04/09/19 13:45 Dose: 3 ml Documented by: Amoxicillin/Clavulanate Potassium (Augmentin 500-125 Mg) 1 each PO Q12HR [facility] Last Admin: 04/09/19 08:14 Dose: 1 each Documented by: Apixaban (Eliquis) 2.5 mg PO BID@ [facility] Last Admin: 04/09/19 08:14 Dose: 2.5 mg Documented by: Atorvastatin Calcium (Lipitor) 10 mg PO DAILY [facility] Last Admin: 04/09/19 08:14 Dose: 10 mg Documented by: Benzonatate (Tessalon Perles) 100 mg PO TID PRN PRN Reason: Cough Last Admin: 04/08/19 15:35 Dose: 100 mg Documented by: Bisacodyl (Dulcolax) 10 mg RECTAL DAILY PRN PRN Reason: Constipation Budesonide/Formoterol Fumarate (Symbicort 80-4.5 Mcg Inhaler) 2 puff INHALATION RT-BID@ [facility] Last Admin: 04/09/19 08:55 Dose: 2 puff Documented by: Calcium Carbonate (Oscal 500+D) 1 each PO BID@ [facility] Last Admin: 04/09/19 08:14 Dose: 1 each Documented by: Diphenoxylate HCl/Atropine (Lomotil) 1 each PO Q4H PRN PRN Reason: Diarrhea Ferrous Sulfate (Feosol) 325 mg PO DAILY@799 [facility] Last Admin: 04/09/19 08:14 Dose: 325 mg Documented by: Gabapentin (Neurontin) 300 mg PO BID@ [facility] Last Admin: 04/09/19 08:14 Dose: 300 mg Documented by: Guaifenesin/Codeine Phosphate (Robitussin Ac) 10 ml PO Q6H [facility] Last Admin: 04/09/19 16:48 Dose: 10 ml Documented by: Hydrocortisone Acetate (Anusol-Hc) 25 mg RECTAL Q12H PRN PRN Reason: Hemorrhoids Methyl Salicylate (Thera-Gesic Cream) 1 applic TOPICAL QID PRN PRN Reason: Pain Metoprolol Tartrate (Lopressor) 25 mg PO BID [facility] Last Admin: 04/09/19 08:14 Dose: 25 mg Documented by: Miscellaneous Information (Pneumonia Protocol Utilized) 1 each PO ONCE PRN PRN Reason: Per Protocol Multivitamins (Theragran) 1 each PO DAILY@799 [facility] Last Admin: 04/09/19 08:14 Dose: 1 each Documented by: Olanzapine (Zyprexa Zydis) 20 mg PO HS@1999 [facility] Last Admin: 04/08/19 19:34 Dose: 20 mg Documented by: Pantoprazole Sodium (Protonix) 40 mg PO BID@ [facility] Last Admin: 04/09/19 03:51 Dose: Not Given Documented by: Prednisone () 30 mg PO DAILY [facility] Last Admin: 04/09/19 08:14 Dose: 30 mg Documented by: Promethazine HCl (Phenergan) 12.5 mg PO Q12H PRN PRN Reason: Nausea Spironolactone (Aldactone) 25 mg PO Q48H [facility] Last Admin: 04/09/19 08:14 Dose: 25 mg Documented by: Physical examination: VITAL SIGNS: 97.2, 94, 16, 1 38 x 64, 100% on 8 L GENERAL: Laying in bed, congested sounding EYES: Pupils equal. Conjunctiva normal. HEENT: External appearance of nose and ears normal, oral cavity grossly normal. NECK: JVD not raised; masses not palpable. HEART: First and second heart sounds are normal; no edema. LUNGS: Respiratory rate increased, diminished breath sound, increased expiratory crackles. ABDOMEN: Soft, nontender, liver spleen not palpable, no masses palpable. PSYCH: Patient able to answer some simple questions. Otherwise forgetfull. Investigations: 142 creatinine 1.16 Previous testing White count 10.3 hemoglobin 13.6 increased neutrophils potassium 4.7 bun 24 creatinine 1.55 ProBNP 3080 pro calcitonin to 0.17 EKG tracing personally reviewed by me-atrial fibrillation with rate controlled Chest x-ray film personally reviewed by me-shows bilateral infiltrates, cannot rule out vascular prominence Assessment: -Bilateral multilobar pneumonia though predominantly lower lobes suspect gram- negative organism, causing sepsis, POA, improving -Patient still remains to have a congested lung. Pending bronchial lavage this afternoon -Chronic kidney disease stage III probably from nephrosclerosis -Acute kidney injury, likely ATN from sepsis, POA -Acute COPD exacerbation and an ex-smoker -Essential hypertension with chronic kidney disease -Hyperlipidemia -Persistent atrial fibrillation rate control -Secondary probably hypertension -Moderate tricuspid regurgitation -Moderate cognitive impairment -baseline uses a cane Plan: Continue current treatment plan. Awaiting bronchoscopy with lavage as often. Spoke to Dr. Mckinley.
[2019-04-09] MEDS: OLANZapine ODT 10 MG TAB PO SCH (19:36)
[2019-04-10] MEDS: guaiFENesin-Coden 100-10MG/5ML 10 ML CUP PO SCH ×4 (04:26→20:49)
[2019-04-10] MEDS: PANTOPRAZOLE 40 MG TABLET PO SCH ×2 (05:41→19:34)
[2019-04-10] MEDS: IPRATROPIUM-ALBUTEROL 3 ML NEB INHALATION SCH ×3 (08:15→19:00)
[2019-04-10] MEDS: SYMBICORT 80-4.5 MCG INHALER INHALATION SCH ×2 (08:15→19:00)
[2019-04-10] MEDS: predniSONE 10 MG TAB PO SCH (08:28)
[2019-04-10] MEDS: GABAPENTIN 300 MG CAP PO SCH ×2 (08:28→19:34)
[2019-04-10] MEDS: MULTIVITAMINS, THERA 1 EACH TAB PO SCH (08:28)
[2019-04-10] MEDS: ATORVASTATIN 10 MG TAB PO SCH (08:29)
[2019-04-10] MEDS: APIXABAN 2.5 MG TABLET PO SCH ×2 (08:29→19:34)
[2019-04-10] MEDS: CALCIUM CARB-VIT D 500MG-200UN 1 EACH TAB PO SCH ×2 (08:29→19:34)
[2019-04-10] MEDS: FERROUS SULFATE 325 MG TAB PO SCH (08:29)
[2019-04-10] MEDS: ACETAMINOPHEN TAB 325 MG TAB PO SCH ×2 (08:29→19:35)
[2019-04-10] MEDS: METOPROLOL TARTRATE 25 MG TAB PO SCH ×2 (08:29→20:49)
[2019-04-10] MEDS: AMOXIC-POT CLAV 500-125 MG 1 EACH TAB PO SCH ×2 (08:30→20:49)
--- NOTE | 2019-04-10 11:46 | P.PN ---
Subjective Progress Note Date: 04/10/19 Principal diagnosis: Acute hypoxic respiratory failure secondary to bilateral lower lobe pneumonia. Consider aspiration. 84-year-old female patient presented to the ED because of generalized weakness and worsening shortness of breath. Her symptoms were progressively getting wo rse over the past few days. She got moved to the hospital and the patient was also having increased cough along with some shortness of breath. No fever. No aspiration. The patient lives of a halfway facility. Her white cell count of 10.3. Creatinine is at 1.5 and the rest of the electrolytes all within normal limits. The proBNP level was 3080. Chest x-ray is showing increased interstitial prominence bilaterally along with some limitation of the right hemidiaphragm. There is also cardiomegaly. This patient has history of breast and colon cancer as well as hypertension. She has been in our hospital back in 2018 for sepsis secondary to right lower lobe pneumonia and acute small bowel obstruction and acute urinary tract infection. At that time she also had A. fib/RVR complicating her picture. She is known to have COPD, previous history of CVA/TIA, hypertension and hyperlipi demia and addition to colon and breast cancer and the patient undergone double mastectomy. She does have some baseline schizophrenia. She has previous history of smoking and she is currently in remission. Subsequently she was admitted to the hospital back in 2018 for shortness of breath and bilateral pneumonia and atrial fibrillation with rapid ventricular response. She has a preserved LV function from August 2018 indicating an ejection fraction of 55- 60% and there is moderate pulmonary hypertension with a PA pressure of 66. The patient had mild aortic sclerosis mild mitral regurgitation and moderate tricuspid regurgitation. The patient is seen today 04/09/2019 in follow-up on the regular medical floor. She has been slow to progress. Continue with the loose congested cough. The plan is for bronchoscopy with BAL with Dr. Puckett today. She's been maintained on DuoNeb inhalations and Symbicort, Augmentin. Maintaining O2 saturations in the mid 90s on 2 L/m per nasal cannula. She's afebrile. Hemodynamically stable. Sodium 138. Potassium 4.7. Creatinine 1.16. The patient is seen today 04/10/2019 in follow-up on the regular medical floor. She is currently resting fairly comfortably in bed. She continues with a loose nonproductive cough. She did undergo bronchoscopy with BAL were lots of thick mucus was suctioned. Cultures are pending. She was found to have significant tracheobronchomalacia which explains and difficulty in expectorating. She is currently on Augmentin. Remains on DuoNeb inhalations, Tessalon Perles, Symbicort, prednisone. Objective - Vital Signs Vital signs: Vital Signs Temp 97.4 F L 04/10/19 04:58 Pulse 78 04/10/19 08:25 Resp 18 04/10/19 04:58 BP 131/75 04/10/19 04:58 Pulse Ox 99 04/10/19 04:58 Intake & Output 04/09/19 04/10/19 04/10/19 18:59 06:59 18:59 Intake Total 400 840 Output Total 550 1000 Balance -150 -160 Intake: IV 400 Oral 840 Output: Urine 550 1000 Uretheral ([place]) 1000 Other: Voiding Method Indwelling Catheter Indwelling Catheter - Exam GENERAL EXAM: Pleasant 84-year-old female patient, comfortable in no acute distress. On 2 L nasal cannula. HEAD: Normocephalic. EYES: Normal reaction of pupils, equal size. NOSE: Clear with pink turbinates. THROAT: No erythema or exudates. NECK: No masses, no JVD. CHEST: No chest wall deformity. LUNGS: Equal air entry with bilateral scattered rhonchi, crackles in the posterior bases. CVS: S1 and S2 normal with no audible murmur, regular rhythm. ABDOMEN: No hepatosplenomegaly, normal bowel sounds, no guarding or rigidity. SPINE: No scoliosis or deformity SKIN: No rashes CENTRAL NERVOUS SYSTEM: Oriented 2. No focal deficits, tone is normal in all 4 extremities. EXTREMITIES: There is no peripheral edema. No clubbing, no cyanosis. Peripheral pulses are intact. - Labs CBC & Chem 7: 04/02/19 13:11 04/09/19 07:03 Labs: Microbiology - Last 24 Hours (Table) 04/09/19 11:16 Acid Fast Bacilli Smear - Final Bronchoalviolar Lavage - Right Acid Fast Bacilli Culture - Preliminary 04/09/19 11:16 Gram Stain - Preliminary Bronchoalviolar Lavage - Right Bronchial Washings Culture - Preliminary 04/09/19 11:16 Fungal Culture - Preliminary Bronchoalviolar Lavage - Right Assessment and Plan Assessment: Impression: 1 acute hypoxic respiratory failure secondary to bilateral lower lobe pneumonia . Consider aspiration. Bronchoscopy with BAL performed yesterday. She is found to have significant tracheobronchomalacia with retained secretions. 2 acute exacerbation of chronic COPD secondary to above 3 chronic atrial fibrillation 4 chronic stage III kidney disease 5 hypertension 6 hyperlipidemia 7 history of breast cancer with a previous lateral meniscectomy 8 history of colon cancer 9 history of small bowel obstruction requiring surgical release of adhesions back in 2018 10 questionable history of schizophrenia Plan: The patient was seen and evaluated by Dr. Puckett. She is improved today compared to yesterday. Still not back to her baseline. We'll await final cultures from the bronchial wash to assure appropriate antibiotics. Continue Augmentin for now. We'll continue the current treatment plan including DuoNeb inhalations, Symbicort, Tessalon Perles, Mucinex. Anticoagulated with Eliquis. Probable discharge in the a.m. We will continue to follow and make further recommendations based on her clinical status. I, the cosigning physician, performed a history & physical examination of the patient. Lungs sounds bilateral scattered rhonchi, crackles in the bases Maintaining good O2 saturations in the 90s on 2 L/m per nasal cannula. I discussed the assessment and plan of care with my nurse practitioner, Marilyn Rodriguez. I attest to the above note as dictated by her.
[2019-04-10] MEDS: OLANZapine ODT 10 MG TAB PO SCH (19:34)
--- NOTE | 2019-04-10 22:54 | P.PN ---
Progress Note - Text Progress Note Date: 04/10/19 Chief Complaint: Cough congested Interval history: This is a 83-year-old patient of Dr. Beth from visiting physician. Chronic stable medical conditions include chronic kidney disease stage III, COPD, hypertension, hyperlipidemia, persistent atrial fibrillation, secondary pulmonary hypertension, moderate tricuspid regurgitation. Patient now the best of historians. Patient presents with worsening shortness of breath. Has a cough. Congested. Denies any obvious fevers and chills. Feeling weak tired rundown. Not able to expectorate. Appetite is okay. She lives at [facility]. Patient does use a cane as needed. Does feel tired and rundown. Diagnosis bilateral pneumonia. Responded well to antibiotics. Did improve but had remained congested. On April 09 underwent bronchial lavage with bronchoscopy Today-. Still has some congestion. Coughing. Sitting up in the chair. Did tolerate her diet. Review of systems: Was done for constitutional, cardiovascular, GI, pulmonary. relevant finding as above Active Medications Acetaminophen (Tylenol Tab) 650 mg PO BID@ [facility] Last Admin: 04/10/19 19:35 Dose: 650 mg Documented by: Albuterol/Ipratropium (Duoneb 0.5 Mg-3 Mg/3 Ml Soln) 3 ml INHALATION RT-Q4H PRN PRN Reason: shortness of breath Last Admin: 04/03/19 05:05 Dose: 3 ml Documented by: Albuterol/Ipratropium (Duoneb 0.5 Mg-3 Mg/3 Ml Soln) 3 ml INHALATION RT-TID [facility] Last Admin: 04/10/19 19:00 Dose: 3 ml Documented by: Amoxicillin/Clavulanate Potassium (Augmentin 500-125 Mg) 1 each PO Q12HR [facility] Last Admin: 04/10/19 20:49 Dose: 1 each Documented by: Apixaban (Eliquis) 2.5 mg PO BID@ [facility] Last Admin: 04/10/19 19:34 Dose: 2.5 mg Documented by: Atorvastatin Calcium (Lipitor) 10 mg PO DAILY [facility] Last Admin: 04/10/19 08:29 Dose: 10 mg Documented by: Benzonatate (Tessalon Perles) 100 mg PO TID PRN PRN Reason: Cough Last Admin: 09/09/19 15:35 Dose: 100 mg Documented by: Bisacodyl (Dulcolax) 10 mg RECTAL DAILY PRN PRN Reason: Constipation Budesonide/Formoterol Fumarate (Symbicort 80-4.5 Mcg Inhaler) 2 puff INHALATION RT-BID@ [facility] Last Admin: 04/10/19 19:00 Dose: 2 puff Documented by: Calcium Carbonate (Oscal 500+D) 1 each PO BID@ [facility] Last Admin: 04/10/19 19:34 Dose: 1 each Documented by: Diphenoxylate HCl/Atropine (Lomotil) 1 each PO Q4H PRN PRN Reason: Diarrhea Ferrous Sulfate (Feosol) 325 mg PO DAILY@799 [facility] Last Admin: 04/10/19 08:29 Dose: 325 mg Documented by: Gabapentin (Neurontin) 300 mg PO BID@ [facility] Last Admin: 04/10/19 19:34 Dose: 300 mg Documented by: Guaifenesin/Codeine Phosphate (Robitussin Ac) 10 ml PO Q6H [facility] Last Admin: 04/10/19 20:49 Dose: 10 ml Documented by: Hydrocortisone Acetate (Anusol-Hc) 25 mg RECTAL Q12H PRN PRN Reason: Hemorrhoids Methyl Salicylate (Thera-Gesic Cream) 1 applic TOPICAL QID PRN PRN Reason: Pain Metoprolol Tartrate (Lopressor) 25 mg PO BID [facility] Last Admin: 04/10/19 20:49 Dose: 25 mg Documented by: Miscellaneous Information (Pneumonia Protocol Utilized) 1 each PO ONCE PRN PRN Reason: Per Protocol Multivitamins (Theragran) 1 each PO DAILY@799 [facility] Last Admin: 04/10/19 08:28 Dose: 1 each Documented by: Olanzapine (Zyprexa Zydis) 20 mg PO HS@1999 [facility] Last Admin: 04/10/19 19:34 Dose: 20 mg Documented by: Pantoprazole Sodium (Protonix) 40 mg PO BID@ [facility] Last Admin: 04/10/19 19:34 Dose: 40 mg Documented by: Prednisone () 30 mg PO DAILY [facility] Last Admin: 04/10/19 08:28 Dose: 30 mg Documented by: Promethazine HCl (Phenergan) 12.5 mg PO Q12H PRN PRN Reason: Nausea Spironolactone (Aldactone) 25 mg PO Q48H [facility] Last Admin: 04/09/19 08:14 Dose: 25 mg Documented by: Physical examination: VITAL SIGNS: 98.8, 96, 17, 97/54, 98% on 2 L GENERAL: Sitting up in a chair, but less congested sounding EYES: Pupils equal. Conjunctiva normal. HEENT: External appearance of nose and ears normal, oral cavity grossly normal. NECK: JVD not raised; masses not palpable. HEART: First and second heart sounds are normal; no edema. LUNGS: Respiratory rate increased, diminished breath sound, loosened crackles. ABDOMEN: Soft, nontender, liver spleen not palpable, no masses palpable. PSYCH: Patient able to answer some simple questions. Otherwise forgetfull. Investigations: 142 creatinine 1.16 Previous testing White count 10.3 hemoglobin 13.6 increased neutrophils potassium 4.7 bun 24 creatinine 1.55 ProBNP 3080 pro calcitonin to 0.17 EKG tracing personally reviewed by me-atrial fibrillation with rate controlled Chest x-ray film personally reviewed by me-shows bilateral infiltrates, cannot rule out vascular prominence Assessment: -Bilateral multilobar pneumonia though predominantly lower lobes suspect gram- negative organism, causing sepsis, POA, improving -Tracheobronchomalacia -Patient still remains to have a congested lung. Status post bronchial lavage -Chronic kidney disease stage III probably from nephrosclerosis -Acute kidney injury, likely ATN from sepsis, POA -Acute COPD exacerbation and an ex-smoker -Essential hypertension with chronic kidney disease -Hyperlipidemia -Persistent atrial fibrillation rate control -Secondary probably hypertension -Moderate tricuspid regurgitation -Moderate cognitive impairment -baseline uses a cane Plan: Discussed with Dr. Mckinley. Await cultures. He doesn't think any a repeat lavage will be of any much benefit. Did order a flutter valve. Discharged tomorrow pending culture
[2019-04-11] MEDS: guaiFENesin-Coden 100-10MG/5ML 10 ML CUP PO SCH ×3 (04:30→13:59)
[2019-04-11] MEDS: PANTOPRAZOLE 40 MG TABLET PO SCH (05:20)
[2019-04-11] MEDS: IPRATROPIUM-ALBUTEROL 3 ML NEB INHALATION PRN (06:06)
[2019-04-11 06:25] LABS: Glucose,Whole Blood 128 mg/dL (75-99)
[2019-04-11] MEDS: APIXABAN 2.5 MG TABLET PO SCH (08:28)
[2019-04-11] MEDS: ACETAMINOPHEN TAB 325 MG TAB PO SCH (08:28)
[2019-04-11] MEDS: CALCIUM CARB-VIT D 500MG-200UN 1 EACH TAB PO SCH (08:29)
[2019-04-11] MEDS: FERROUS SULFATE 325 MG TAB PO SCH (08:31)
[2019-04-11] MEDS: GABAPENTIN 300 MG CAP PO SCH (08:45)
[2019-04-11] MEDS: METOPROLOL TARTRATE 25 MG TAB PO SCH (08:45)
[2019-04-11] MEDS: MULTIVITAMINS, THERA 1 EACH TAB PO SCH (08:45)
[2019-04-11] MEDS: predniSONE 10 MG TAB PO SCH (08:45)
[2019-04-11] MEDS: ATORVASTATIN 10 MG TAB PO SCH (08:45)
[2019-04-11] MEDS: IPRATROPIUM-ALBUTEROL 3 ML NEB INHALATION SCH ×2 (09:04→13:25)
[2019-04-11] MEDS: SYMBICORT 80-4.5 MCG INHALER INHALATION SCH (09:07)
--- NOTE | 2019-04-11 11:16 | P.PN ---
Subjective Progress Note Date: 04/11/19 Principal diagnosis: Acute hypoxic respiratory failure secondary to bilateral lower lobe pneumonia. Consider aspiration. 84-year-old female patient presented to the ED because of generalized weakness and worsening shortness of breath. Her symptoms were progressively getting wo rse over the past few days. She got moved to the hospital and the patient was also having increased cough along with some shortness of breath. No fever. No aspiration. The patient lives of a alf facility. Her white cell count of 10.3. Creatinine is at 1.5 and the rest of the electrolytes all within normal limits. The proBNP level was 3080. Chest x-ray is showing increased interstitial prominence bilaterally along with some limitation of the right hemidiaphragm. There is also cardiomegaly. This patient has history of breast and colon cancer as well as hypertension. She has been in our hospital back in 2018 for sepsis secondary to right lower lobe pneumonia and acute small bowel obstruction and acute urinary tract infection. At that time she also had A. fib/RVR complicating her picture. She is known to have COPD, previous history of CVA/TIA, hypertension and hyperlipi demia and addition to colon and breast cancer and the patient undergone double mastectomy. She does have some baseline schizophrenia. She has previous history of smoking and she is currently in remission. Subsequently she was admitted to the hospital back in 2018 for shortness of breath and bilateral pneumonia and atrial fibrillation with rapid ventricular response. She has a preserved LV function from August 2018 indicating an ejection fraction of 55- 60% and there is moderate pulmonary hypertension with a PA pressure of 66. The patient had mild aortic sclerosis mild mitral regurgitation and moderate tricuspid regurgitation. The patient is seen today 04/09/2019 in follow-up on the regular medical floor. She has been slow to progress. Continue with the loose congested cough. The plan is for bronchoscopy with BAL with Dr. Puckett today. She's been maintained on DuoNeb inhalations and Symbicort, Augmentin. Maintaining O2 saturations in the mid 90s on 2 L/m per nasal cannula. She's afebrile. Hemodynamically stable. Sodium 138. Potassium 4.7. Creatinine 1.16. The patient is seen today 04/10/2019 in follow-up on the regular medical floor. She is currently resting fairly comfortably in bed. She continues with a loose nonproductive cough. She did undergo bronchoscopy with BAL were lots of thick mucus was suctioned. Cultures are pending. She was found to have significant tracheobronchomalacia which explains and difficulty in expectorating. She is currently on Augmentin. Remains on DuoNeb inhalations, Tessalon Perles, Symbicort, prednisone. The patient is seen today 04/11/2019 in follow-up on the regular medical floor. She is more awake and alert today. Less short of breath. Her cough is dry her. She is maintaining O2 saturations in the mid 90s on room air. She's afebrile. Hemodynamically stable. Bronchial cultures are pending. Urine culture ne gative. Blood cultures negative. She remains on Augmentin. Objective - Vital Signs Vital signs: Vital Signs Temp 98.3 F 04/11/19 04:17 Pulse 99 04/11/19 08:35 Resp 20 04/11/19 08:35 BP 111/72 04/11/19 04:17 Pulse Ox 94 L 04/11/19 04:17 Intake & Output 04/10/19 04/11/19 04/11/19 18:59 06:59 18:59 Intake Total 400 Output Total 1850 800 Balance -1450 -800 Intake: Oral 400 Output: Urine 1850 800 Straight 800 Uretheral ([place]) 1300 Other: Voiding Method Indwelling Catheter Indwelling Catheter Indwelling Catheter # Voids 2 - Exam GENERAL EXAM: Pleasant 84-year-old female patient, comfortable in no acute distress. On room air 94% at rest.. HEAD: Normocephalic. EYES: Normal reaction of pupils, equal size. NOSE: Clear with pink turbinates. THROAT: No erythema or exudates. NECK: No masses, no JVD. CHEST: No chest wall deformity. LUNGS: Equal air entry with bilateral scattered rhonchi, crackles in the posterior bases. CVS: S1 and S2 normal with no audible murmur, regular rhythm. ABDOMEN: No hepatosplenomegaly, normal bowel sounds, no guarding or rigidity. SPINE: No scoliosis or deformity SKIN: No rashes CENTRAL NERVOUS SYSTEM: Oriented 2. No focal deficits, tone is normal in all 4 extremities. EXTREMITIES: There is no peripheral edema. No clubbing, no cyanosis. Peripheral pulses are intact. - Labs CBC & Chem 7: 04/02/19 13:11 04/09/19 07:03 Labs: Abnormal Lab Results - Last 24 Hours (Table) 04/11/19 Range/Units 06:23 POC Glucose (mg/dL) 128 H (75-99) mg/dL Assessment and Plan Assessment: Impression: 1 acute hypoxic respiratory failure secondary to bilateral lower lobe pneumonia . Consider aspiration. Bronchoscopy with BAL performed yesterday. She is found to have significant tracheobronchomalacia with retained secretions. 2 acute exacerbation of chronic COPD secondary to above 3 chronic atrial fibrillation 4 chronic stage III kidney disease 5 hypertension 6 hyperlipidemia 7 history of breast cancer with a previous lateral meniscectomy 8 history of colon cancer 9 history of small bowel obstruction requiring surgical release of adhesions back in 2018 10 questionable history of schizophrenia Plan: The patient was seen and evaluated by Dr. Puckett. She is cleared for discharge from the pulmonary standpoint. Continue Augmentin for now. We'll continue the current treatment plan including DuoNeb inhalations, Symbicort, Tessalon Perles, Mucinex. Anticoagulated with Eliquis. I, the cosigning physician, performed a history & physical examination of the patient. Lungs sounds bilateral scattered rhonchi, crackles in the bases Maintaining good O2 saturations in the 90s on room air.. I discussed the assessment and plan of care with my nurse practitioner, Marilyn Rodriguez. I attest to the above note as dictated by her.
[2019-04-11] MEDS: SPIRONOLACTONE 25 MG TAB PO SCH (11:53)
[2019-04-11] MEDS: AMOXIC-POT CLAV 500-125 MG 1 EACH TAB PO SCH (11:53)
[2019-04-11] MEDS ORDERED: ITRACONAZOLE 100 MG CAP PO SCH (12:15)
[2019-04-11 12:22] VITALS: BP 110/69; RESP 22; TEMP 97.7
[2019-04-11 13:26] VITALS: PULSE 80
--- NOTE | 2019-04-11 20:33 | P.DS ---
Providers Date of admission: 04/02/19 15:40 Expected date of discharge: 04/11/19 Attending physician: Vega Michael Consults: 04/02/19 15:40 Consult Physician Routine Consulting Provider: Carlos Enrique Kessler Consult Reason/Comments: Pneumonia, sepsis Do you want consulting provider notified?: Yes Primary care physician: Dillon Beth [facility] Course: Chief Complaint: Cough congested Hospital course: This is a 83-year-old patient of Dr. Beth from visiting physician. Chronic stable medical conditions include chronic kidney disease stage III, COPD, hypertension, hyperlipidemia, persistent atrial fibrillation, secondary pulmonary hypertension, moderate tricuspid regurgitation. Patient now the best of historians. Patient presents with worsening shortness of breath. Has a cough. Congested. Denies any obvious fevers and chills. Feeling weak tired rundown. Not able to expectorate. Appetite is okay. She lives at [facility]. Patient does use a cane as needed. Does feel tired and rundown. Diagnosis bilateral pneumonia. Responded well to antibiotics. Did improve but had remained congested. On April 09 underwent bronchial lavage with bronchoscopy. Large amount of tenacious secretion was found. Also tracheomalacia. Postprocedure patient to have significant symptoms. 2 breathing a bit better. Flutter valve was given. Cultures did come back showing some Lien Aspergillus. I terconazole was added today. Discussed with Dr. Mckinley. Terri to [place]. Discussion and discharge planning more than 35 minutes Consultation: Dr. Peacock and partner from pulmonary Physical examination: VITAL SIGNS: 97.7, 67, 22, 110/69, 97% on 2 L GENERAL: Sitting up in a chair, eating better EYES: Pupils equal. Conjunctiva normal. HEENT: External appearance of nose and ears normal, oral cavity grossly normal. NECK: JVD not raised; masses not palpable. HEART: First and second heart sounds are normal; no edema. LUNGS: Respiratory rate increased, diminished breath sound, few were crackles. ABDOMEN: Soft, nontender, liver spleen not palpable, no masses palpable. PSYCH: Patient able to answer some simple questions. Otherwise forgetfull. Investigations: 142 creatinine 1.16 Bronchoscopy and lavage cultures growing Aspergillus species and Lien albicans. Also positive for rhinovirus Previous testing White count 10.3 hemoglobin 13.6 increased neutrophils potassium 4.7 bun 24 creatinine 1.55 ProBNP 3080 pro calcitonin to 0.17 EKG tracing personally reviewed by me-atrial fibrillation with rate controlled Chest x-ray film personally reviewed by me-shows bilateral infiltrates, cannot rule out vascular prominence Assessment: -Bilateral multilobar pneumonia though predominantly lower lobes suspect gram- negative organism, causing sepsis, POA, -Tracheobronchomalacia -Chronic kidney disease stage III probably from nephrosclerosis -Acute kidney injury, likely ATN from sepsis, POA -Acute COPD exacerbation and an ex-smoker -Essential hypertension with chronic kidney disease -Hyperlipidemia -Persistent atrial fibrillation rate control -Secondary probably hypertension -Moderate tricuspid regurgitation -Moderate cognitive impairment -baseline uses a cane Disposition: correction Patient Condition at Discharge: Stable Plan - Discharge Summary Discharge Rx Participant: No New Discharge Prescriptions: New Amoxic-Pot Clav 500-125 mg [Augmentin 500-125 mg] 1 each PO Q12HR #14 tab predniSONE 30 mg PO DIRECTED #9 tab Sennosides-Docusate Sodium [Senokot-S] 1 tab PO DAILY #30 tablet Itraconazole [Sporanox] 200 mg PO BID #20 cap Continue Omeprazole [PriLOSEC] 20 mg PO BID@00,1999 Promethazine [Phenergan] 12.5 mg PO Q12H PRN PRN Reason: Nausea Polyethylene Glycol 3350 [Miralax] 17 gm PO DAILY@0800 Gabapentin [Neurontin] 300 mg PO BID@799,1999 Acetaminophen [Tylenol] 650 mg PO BID@799,1999 Fluticasone/Salmeterol [Advair 250-50 Diskus] 1 puff INHALATION RT- BID@799,1999 Calcium Carbonate/Vitamin D3 [Calcium 600-Vit D3 400 Tablet] 1 tab PO BID@0800,1999 Multivit-Min/FA/Lycopen/Lutein [Centrum Silver Tablet] 1 tab PO DAILY@0800 Apixaban [Eliquis] 5 mg PO BID@08,1999 #0 Ferrous Gluconate 324 mg PO DAILY@0800 Cyanocobalamin (Vitamin B-12) [Vitamin B-12] 1,000 mcg PO DAILY Budesonide [Pulmicort] 0.5 mg INHALATION RT-BID Diphenox-Atrop 2.5-0.025 mg [Lomotil] 1 tab PO Q4H PRN PRN Reason: Diarrhea Bisacodyl [Dulcolax] 10 mg RECTAL DAILY PRN PRN Reason: Constipation Benzonatate [Tessalon Perles] 100 mg PO TID PRN PRN Reason: Cough OLANZapine [OLANZapine Odt] 20 mg PO HS@1999 Hydrocortisone Acetate [Anucort-Hc] 25 mg RECTAL Q12H PRN PRN Reason: Hemorrhoids Metoprolol Tartrate [Lopressor] 25 mg PO BID #60 tab guaiFENesin [Mucinex] 1,200 mg PO BID@799,1999 #0 Ipratropium-Albuterol Nebulize [Duoneb 0.5 mg-3 mg/3 ml Soln] 3 ml INHALATION RT-TID Menthol [Biofreeze] 1 applic TOPICAL QID PRN PRN Reason: Pain Simvastatin [Zocor] 20 mg PO DAILY Spironolactone [Aldactone] 25 mg PO Q48H Discontinued Docusate [Colace] 100 mg PO BID@08,1999 Fluticasone Nasal [place] [Flonase Nasal [place]] 1 spray EA NOSTRIL DAILY@08 Loratadine [Claritin] 10 mg PO DAILY@0800 Furosemide [Lasix] 20 mg PO DAILY@08 Docusate [Colace] 100 mg PO BID Discharge Medication List Acetaminophen [Tylenol] 650 mg PO BID@08,199907/25/17 [History] Calcium Carbonate/Vitamin D3 [Calcium 600-Vit D3 400 Tablet] 1 tab PO BID@08,199907/25/17 [History] Fluticasone/Salmeterol [Advair 250-50 Diskus] 1 puff INHALATION RT-BID@799,199907/25/17 [History] Gabapentin [Neurontin] 300 mg PO BID@08,199907/25/17 [History] Multivit-Min/FA/Lycopen/Lutein [Centrum Silver Tablet] 1 tab PO DAILY@0807/25/17 [History] Omeprazole [PriLOSEC] 20 mg PO BID@06,199907/25/17 [History] Polyethylene Glycol 3350 [Miralax] 17 gm PO DAILY@0800 07/25/17 [History] Promethazine [Phenergan] 12.5 mg PO Q12H PRN 07/25/17 [History] Apixaban [Eliquis] 5 mg PO BID@ #0 08/10/17 [Rx] Benzonatate [Tessalon Perles] 100 mg PO TID PRN 09/24/18 [History] Bisacodyl [Dulcolax] 10 mg RECTAL DAILY PRN 09/24/18 [History] Budesonide [Pulmicort] 0.5 mg INHALATION RT-BID 09/24/18 [History] Cyanocobalamin (Vitamin B-12) [Vitamin B-12] 1,000 mcg PO DAILY 09/24/18 [History] Diphenox-Atrop 2.5-0.025 mg [Lomotil] 1 tab PO Q4H PRN 09/24/18 [History] Ferrous Gluconate 324 mg PO DAILY@0809/24/18 [History] Hydrocortisone Acetate [Anucort-Hc] 25 mg RECTAL Q12H PRN 09/24/18 [History] OLANZapine [OLANZapine Odt] 20 mg PO HS@199909/24/18 [History] Metoprolol Tartrate [Lopressor] 25 mg PO BID #60 tab 09/28/18 [Rx] guaiFENesin [Mucinex] 1,200 mg PO BID@ #0 09/28/18 [Rx] Ipratropium-Albuterol Nebulize [Duoneb 0.5 mg-3 mg/3 ml Soln] 3 ml INHALATION RT-TID 04/02/19 [History] Menthol [Biofreeze] 1 applic TOPICAL QID PRN 04/02/19 [History] Simvastatin [Zocor] 20 mg PO DAILY 04/02/19 [History] Spironolactone [Aldactone] 25 mg PO Q48H 04/02/19 [History] Amoxic-Pot Clav 500-125 mg [Augmentin 500-125 mg] 1 each PO Q12HR #14 tab 04/11/19 [Rx] Itraconazole [Sporanox] 200 mg PO BID #20 cap 04/11/19 [Rx] Sennosides-Docusate Sodium [Senokot-S] 1 tab PO DAILY #30 tablet 04/11/19 [Rx] predniSONE 30 mg PO DIRECTED #9 tab 04/11/19 [Rx] Follow up Appointment(s)/Referral(s): [facility], [NON-STAFF] - 1 Week Dillon Beth MD [Primary Care Provider] - 1-2 Days (Office closed at time of discharge please call MondayApril 08 to set up a follow up appointment) Celestine Peacock MD [STAFF PHYSICIAN] - 1 Week ([facility] home to call to schedule fo llow up appointment. ) Patient Instructions/Handouts: Prednisone (By mouth), Amoxicillin/Clavulanate Potassium (By mouth), Laxative, Stool Softeners (By mouth), Itraconazole (By mouth), Sepsis (GEN), Pneumonia (DC) Activity/Diet/Wound Care/Special Instructions: diet as tolerated Activity Limited until seen by Dr. Discharge Disposition: HOME WITH HOME HEALTH SERVICES
== END 2019-04-11 14:55 | disposition home health service (06) | DRG 871 ==
LOC: EC 12:20 → 3NMEDONC 15:40
PROVIDERS: ADMIT Hospitalist; ATTEND Hospitalist
PROC: 0B9C8ZX Drainage of Right Upper Lung Lobe, Via Natural or Artificial Opening Endoscopic, Diagnostic (ICD-10-PCS; 2019-04-09)
PROC: 0B9G8ZX Drainage of Left Upper Lung Lobe, Via Natural or Artificial Opening Endoscopic, Diagnostic (ICD-10-PCS; 2019-04-09)
PROC: 0B9D8ZX Drainage of Right Middle Lung Lobe, Via Natural or Artificial Opening Endoscopic, Diagnostic (ICD-10-PCS; 2019-04-09)
PROC: 0B9F8ZX Drainage of Right Lower Lung Lobe, Via Natural or Artificial Opening Endoscopic, Diagnostic (ICD-10-PCS; 2019-04-09)
PROC: 0B9J8ZX Drainage of Left Lower Lung Lobe, Via Natural or Artificial Opening Endoscopic, Diagnostic (ICD-10-PCS; principal; 2019-04-09 11:00)
DX: A41.50 Gram-negative sepsis, unspecified (principal); J96.01 Acute respiratory failure with hypoxia; N17.0 Acute kidney failure with tubular necrosis; J69.0 Pneumonitis due to inhalation of food and vomit; I48.1 Persistent atrial fibrillation; J44.1 Chronic obstructive pulmonary disease with (acute) exacerbation; Z51.5 Encounter for palliative care; I27.29 Other secondary pulmonary hypertension; F20.9 Schizophrenia, unspecified; I08.3 Combined rheumatic disorders of mitral, aortic and tricuspid valves; J39.8 Other specified diseases of upper respiratory tract; J98.09 Other diseases of bronchus, not elsewhere classified; I13.10 Hypertensive heart and chronic kidney disease without heart failure, with stage 1 through stage 4 chronic kidney disease, or unspecified chronic kidney disease; N18.3 Chronic kidney disease, stage 3 (moderate); R65.20 Severe sepsis without septic shock; E78.5 Hyperlipidemia, unspecified; I25.2 Old myocardial infarction; G31.84 Mild cognitive impairment of uncertain or unknown etiology; Z79.01 Long term (current) use of anticoagulants; Z79.51 Long term (current) use of inhaled steroids; Z79.899 Other long term (current) drug therapy; Z86.73 Personal history of transient ischemic attack (TIA), and cerebral infarction without residual deficits; Z85.038 Personal history of other malignant neoplasm of large intestine; Z85.3 Personal history of malignant neoplasm of breast; Z90.13 Acquired absence of bilateral breasts and nipples; Z87.891 Personal history of nicotine dependence
CPT/HCPCS: 31624; 36415; 71045; 71046; 80048; 80053; 81003; 83605; 83880; 84145; 85025; 85610; 85730; 87040; 87070; 87086; 87102; 87116; 87205; 87206; 87252; 87496; 87498; 87502; 87529; 87634; 87798; 89050; 93005; 93306; 94640; 94667; 94760; 96365; 96366; 96368; 99291

== ENCOUNTER 2021-07-08 10:46 | Inpatient (IN) | payer BC, MEDICARE ==
--- NOTE | 2021-07-08 11:24 | ED ---
Recheck HPI - General Chief Complaint: Recheck/Abnormal Lab/Rx Stated Complaint: Abnormal Labs Time Seen by Provider: 07/08/21 10:50 Source: patient, EMS, RN notes reviewed Mode of arrival: EMS Limitations: no limitations - History of Present Illness Initial Comments: 86-year-old female history of CVA known other medical problems sent in by her visiting physician for evaluation of multiple issues including cold evaluation acute on chronic renal failure hypokalemia hypomagnesemia and anemia and hydronephrosis also a history of CHF exacerbation. - Related Data Home Medications Medication Instructions Recorded Confirmed Acetaminophen [Tylenol] 650 mg PO BID@0800,199907/25/17 07/08/21 Calcium Carbonate/Vitamin D3 1 tab PO BID@0800,199907/25/17 07/08/21 [Calcium 600-Vit D3 10 mcg (400 Iu)] Fluticasone/Salmeterol [Advair 1 puff INHALATION RT-BID 07/25/17 07/08/21 250-50 Diskus] Gabapentin [Neurontin] 300 mg PO BID@0800,199907/25/17 07/08/21 Multivit-Min/FA/Lycopen/Lutein 1 tab PO DAILY@0800 07/25/17 07/08/21 [Centrum Silver Tablet] Omeprazole [PriLOSEC] 20 mg PO BID@08,199907/25/17 07/08/21 Promethazine [Phenergan] 12.5 mg PO Q12H PRN 07/25/17 07/08/21 polyethylene glycoL 3350 [Miralax] 17 gm PO DAILY@0800 07/25/17 07/08/21 Budesonide [Pulmicort] 0.5 mg INHALATION RT-BID 09/24/18 07/08/21 Cyanocobalamin (Vitamin B-12) 1,000 mcg PO DAILY@0800 09/24/18 07/08/21 [Vitamin B-12] Diphenox-Atrop 2.5-0.025 mg 1 tab PO Q4H PRN 09/24/18 07/08/21 [Lomotil] Ferrous Gluconate 324 mg PO DAILY@0800 09/24/18 07/08/21 Hydrocortisone Acetate [Anucort-Hc] 25 mg RECTAL Q12H PRN 09/24/18 07/08/21 OLANZapine [OLANZapine Odt] 20 mg PO HS@199909/24/18 07/08/21 bisacodyL [Dulcolax] 10 mg RECTAL DAILY PRN 09/24/18 07/08/21 Menthol [Biofreeze] 1 applic TOPICAL QID PRN 04/02/19 07/08/21 Simvastatin [Zocor] 20 mg PO DAILY@0800 04/02/19 07/08/21 Azithromycin [Zithromax] 250 mg PO MOWEFR 07/08/21 07/08/21 Carbamide Peroxide [Debrox Otic] 5 drops BOTH EARS BID 07/08/21 07/08/21 Cholecalciferol [Vitamin D3 (25 50 mcg PO DAILY@0800 07/08/21 07/08/21 Mcg = 1000 Iu)] Docusate Sodium [Dok] 100 mg PO BID@08,199907/08/21 07/08/21 Doxycycline Hyclate 100 mg PO BID 07/08/21 07/08/21 Fluticasone Nasal [place] [Flonase 1 spray EA NOSTRIL DAILY 07/08/21 07/08/21 Nasal [place]] Furosemide [Lasix] 40 mg PO BID 07/08/21 07/08/21 Loratadine 10 mg PO DAILY@0800 07/08/21 07/08/21 Metoprolol Tartrate [Lopressor] 25 mg PO BID@08,199907/08/21 07/08/21 Potassium Chloride ER [K-Dur 10] 10 meq PO DAILY 07/08/21 07/08/21 Roflumilast [Daliresp] 250 mcg PO DAILY@0807/08/21 07/08/21 Sennosides-Docusate Sodium 1 tab PO DAILY@0807/08/21 07/08/21 [Senokot-S] guaiFENesin [Mucinex] 1,200 mg PO BID@799,199907/08/21 07/08/21 guaiFENesin-DM 100-10MG/5ML 5 ml PO QID PRN 07/08/21 07/08/21 [Robitussin DM] traMADol HCL 50 mg PO TID PRN 07/08/21 07/08/21 Previous Rx's Medication Instructions Recorded Apixaban [Eliquis] 5 mg PO BID@0800,1999 #0 08/10/17 Allergies Allergy/AdvReac Type Severity Reaction Status Date / Time No Known Allergies Allergy Verified 07/08/21 11:07 Review of Systems ROS Statement: Those systems with pertinent positive or pertinent negative responses have been documented in the HPI. ROS Other: All systems not noted in ROS Statement are negative. Past Medical History Past Medical History: Cancer, COPD, CVA/TIA, Hyperlipidemia, Hypertension Additional Past Medical History / Comment(s): colon & breast CA and the patient is post bilateral mastectomy, hypertension, hyperlipidemia, CVA, COPD, chronic atrial fibrillation, chronic kidney disease stage III, previous history of small bowel obstruction related to abdominal adhesions that was released surgically Last Myocardial Infarction Date:: unk History of Any Multi-Drug Resistant Organisms: None Reported Past Surgical History: Breast Surgery Additional Past Surgical History / Comment(s): double mastectomy, expiratory laparotomy and release of small bowel obstruction Past Anesthesia/Blood Transfusion Reactions: No Reported Reaction Past Psychological History: Schizophrenia Smoking Status: Former smoker Past Alcohol Use History: None Reported Past Drug Use History: None Reported - Past Family History Mother Additional Family Medical History / Comment(s): "back problems', unable to take a family history from this patient who happens to be a very poor historian Father History Unknown: Yes General Exam - General Exam Comments Initial Comments: This a well-developed well-nourished awake alert female who is somewhat lethargic Limitations: no limitations General appearance: alert, lethargic Head exam: Present: atraumatic, normocephalic, normal inspection Eye exam: Present: normal appearance, PERRL, EOMI. Absent: scleral icterus, conjunctival injection, periorbital swelling ENT exam: Present: mucous membranes dry Neck exam: Present: normal inspection. Absent: tenderness, meningismus, lymphadenopathy Respiratory exam: Present: normal lung sounds bilaterally. Absent: respiratory distress, wheezes, rales, rhonchi, stridor Cardiovascular Exam: Present: regular rate, normal rhythm, normal heart sounds. Absent: systolic murmur, diastolic murmur, rubs, gallop, clicks GI/Abdominal exam: Present: soft, normal bowel sounds. Absent: distended, tenderness, guarding, rebound, rigid Extremities exam: Present: normal inspection, full ROM, normal capillary refill. Absent: tenderness, pedal edema, joint swelling, calf tenderness Back exam: Present: normal inspection Neurological exam: Present: alert, oriented X3, CN II-XII intact Psychiatric exam: Present: normal affect, normal mood Skin exam: Present: warm, dry, intact, normal color. Absent: rash Course Vital Signs 07/08/21 10:46 Temperature 97.9 F Pulse Rate 75 Respiratory 18 Rate Blood Pressure 114/53 O2 Sat by Pulse 98 Oximetry Medical Decision Making - Medical Decision Making I did discuss findings with Dr. Michael patient will be admitted for inpatient evaluation and treatment he did see the patient in emergency department - Lab Data Result diagrams: 07/08/21 11:42 07/08/21 11:42 Lab Results 07/08/21 07/08/21 07/08/21 Range/Units 11:42 11:42 11:42 WBC 6.6 (3.8-10.6) k/uL RBC 3.49 L (3.80-5.40) m/uL Hgb 9.3 L (11.4-16.0) gm/dL Hct 30.3 L (34.0-46.0) % MCV 87.0 (80.0-100.0) fL MCH 26.7 (25.0-35.0) pg MCHC 30.7 L (31.0-37.0) g/dL RDW 16.6 H (11.5-15.5) % Plt Count 378 (150-450) k/uL MPV 7.7 Neutrophils % 76 % Lymphocytes % 9 % Monocytes % 9 % Eosinophils % 2 % Basophils % 0 % Neutrophils # 5.0 (1.3-7.7) k/uL Lymphocytes # 0.6 L (1.0-4.8) k/uL Monocytes # 0.6 (0-1.0) k/uL Eosinophils # 0.1 (0-0.7) k/uL Basophils # 0.0 (0-0.2) k/uL Hypochromasia Marked Anisocytosis Slight Sodium 138 (137-145) mmol/L Potassium 2.9 L (3.5-5.1) mmol/L Chloride 103 (98-107) mmol/L Carbon Dioxide 29 (22-30) mmol/L Anion Gap 6 mmol/L BUN 47 H (7-17) mg/dL Creatinine 1.96 H (0.52-1.04) mg/dL Est GFR (CKD-EPI)AfAm 26 (>60 ml/min/1.73 sqM) Est GFR (CKD-EPI)NonAf 23 (>60 ml/min/1.73 sqM) Glucose 109 H (74-99) mg/dL Calcium 8.9 (8.4-10.2) mg/dL Magnesium 1.4 L (1.6-2.3) mg/dL Total Bilirubin 0.4 (0.2-1.3) mg/dL AST 27 (14-36) U/L ALT 13 (4-34) U/L Alkaline Phosphatase 79 (38-126) U/L Creatine Kinase 48 (30-135) U/L Troponin I 0.026 (0.000-0.034) ng/mL Total Protein 5.2 L (6.3-8.2) g/dL Albumin 2.7 L (3.5-5.0) g/dL Lipase 163 (23-300) U/L Influenza Type A (PCR) (Not Detectd) Influenza Type B (PCR) (Not Detectd) RSV (PCR) (Not Detectd) SARS-CoV-2 (PCR) (Not Detectd) 07/08/21 Range/Units 11:43 WBC (3.8-10.6) k/uL RBC (3.80-5.40) m/uL Hgb (11.4-16.0) gm/dL Hct (34.0-46.0) % MCV (80.0-100.0) fL MCH (25.0-35.0) pg MCHC (31.0-37.0) g/dL RDW (11.5-15.5) % Plt Count (150-450) k/uL MPV Neutrophils % % Lymphocytes % % Monocytes % % Eosinophils % % Basophils % % Neutrophils # (1.3-7.7) k/uL Lymphocytes # (1.0-4.8) k/uL Monocytes # (0-1.0) k/uL Eosinophils # (0-0.7) k/uL Basophils # (0-0.2) k/uL Hypochromasia Anisocytosis Sodium (137-145) mmol/L Potassium (3.5-5.1) mmol/L Chloride (98-107) mmol/L Carbon Dioxide (22-30) mmol/L Anion Gap mmol/L BUN (7-17) mg/dL Creatinine (0.52-1.04) mg/dL Est GFR (CKD-EPI)AfAm (>60 ml/min/1.73 sqM) Est GFR (CKD-EPI)NonAf (>60 ml/min/1.73 sqM) Glucose (74-99) mg/dL Calcium (8.4-10.2) mg/dL Magnesium (1.6-2.3) mg/dL Total Bilirubin (0.2-1.3) mg/dL AST (14-36) U/L ALT (4-34) U/L Alkaline Phosphatase (38-126) U/L Creatine Kinase (30-135) U/L Troponin I (0.000-0.034) ng/mL Total Protein (6.3-8.2) g/dL Albumin (3.5-5.0) g/dL Lipase (23-300) U/L Influenza Type A (PCR) Not Detected (Not Detectd) Influenza Type B (PCR) Not Detected (Not Detectd) RSV (PCR) Not Detected (Not Detectd) SARS-CoV-2 (PCR) Not Detected (Not Detectd) - EKG Data -: EKG Interpreted by Me EKG Comments: Atrial fibrillation rate is 74 QRS 96 QT since QTC 414/459 incomplete right bundle-branch block nonspecific anterior configuration - Radiology Data Radiology results: report reviewed (Imaging appears to be unchanged from previous studies), image reviewed Disposition Clinical Impression: Acute kidney injury, Hypokalemia, Hypomagnesemia, Failure to thrive in adult Disposition: ADMITTED IP TO THIS HOSP Condition: Fair Referrals: Dillon Beth MD [Primary Care Provider] - 1-2 days
[2021-07-08 11:59] LABS: Anisocytosis Slight; Basophils % (A) 0 %; Eosinophils # (A) 0.1 k/uL (0-0.7); Eosinophils % (A) 2 %; HCT 30.3 % (34.0-46.0); HGB 9.3 gm/dL (11.4-16.0); Hypochromasia Marked; Lymphocytes # (A) 0.6 k/uL (1.0-4.8); Lymphocytes % (A) 9 %; MCH 26.7 pg (25.0-35.0); MCHC 30.7 g/dL (31.0-37.0); Mean Platelet Volume 7.7; Monocytes # (A) 0.6 k/uL (0-1.0); Monocytes % (A) 9 %; Neutrophils % (A) 76 %; Platelet Count 378 k/uL (150-450); RBC 3.49 m/uL (3.80-5.40); RDW 16.6 % (11.5-15.5); WBC 6.6 k/uL (3.8-10.6)
--- NOTE | 2021-07-08 12:15 | XR ---
EXAMINATION TYPE: XR chest 2V DATE OF EXAM: 07/08/2021 COMPARISON: Chest x-ray 04/07/2019, 04/05/2019 HISTORY: Weakness TECHNIQUE: Frontal and lateral views of the chest are obtained. FINDINGS: Cardiac mediastinal silhouette is likely stable, patient is rotated, lung volumes are low. No evident pneumothorax. Some minimal patchy density present at the level the left costophrenic angl e is stable. Arthropathy is noted within the acromion clavicular joints, right shoulder. Aorta is den se. Interstitium is mildly increased. Blunting the posterior costophrenic angle is chronic. IMPRESSION: Findings are similar to prior exam. Findings may be chronic, difficult to exclude pleura l effusion, interstitial edema, there may be underlying cardiomegaly. Rotated exam. Follow-up as [facility] sorensen.
[2021-07-08 12:21] LABS: Albumin 2.7 g/dL (3.5-5.0); Calcium 8.9 mg/dL (8.4-10.2); Magnesium 1.4 mg/dL (1.6-2.3); Potassium 2.9 mmol/L (3.5-5.1); Total Bilirubin 0.4 mg/dL (0.2-1.3); Total Protein 5.2 g/dL (6.3-8.2)
[2021-07-08] MEDS ORDERED: POTASSIUM CHLORIDE ER 20 MEQ TAB.ER PO STA (12:44)
[2021-07-08] MEDS ORDERED: NALOXONE 0.4 MG/ML 1 ML VIAL IV PRN (14:24)
[2021-07-08] MEDS ORDERED: ACETAMINOPHEN TAB 325 MG TAB PO PRN (14:24)
[2021-07-08] MEDS ORDERED: guaiFENesin-DM 100-10MG/5ML 10 ML CUP PO PRN (14:25)
[2021-07-08] MEDS ORDERED: HYDROCORTISONE SUPPOSITORY 25 MG SUPP RECTAL PRN (14:25)
[2021-07-08] MEDS ORDERED: bisacodyL 10 MG SUPP RECTAL PRN (14:25)
[2021-07-08] MEDS ORDERED: NON FORMULARY DRUG (Menthol [Biofreeze] 89 ML Gel..Ml.) TOPICAL PRN (14:25)
[2021-07-08] MEDS ORDERED: DIPHENOX-ATROP 2.5-0.025 MG 1 EACH TAB PO PRN (14:25)
[2021-07-08] MEDS ORDERED: PROMETHAZINE 25 MG TAB PO PRN (14:25)
[2021-07-08] MEDS ORDERED: SODIUM CHLORIDE 0.9% 1,000 ML IV SCH (14:30)
[2021-07-08] MEDS: MAGNESIUM SULFATE-D5W PMX 1 GM in DEXTROSE/WATER 1 100ML.BAG IVPB SCH ×2 (15:16→21:46)
[2021-07-08] MEDS ORDERED: FUROSEMIDE 40 MG TAB PO SCH (16:00)
--- NOTE | 2021-07-08 17:36 | P.HPIM ---
History of Present Illness H&P Date: 07/08/21 Chief Complaint: Abnormal labs Hospital course: This is a 86-year-old patient of Dr. Beth from visiting physician. Chronic stable medical conditions include chronic kidney disease stage III, COPD, hypertension, hyperlipidemia, persistent atrial fibrillation, secondary pul monary hypertension, moderate tricuspid regurgitation. Patient not a very good historian.. Sent in with a note from her family doctor Dr. Beth stating that her current conditions include worsening renal function, low potassium and low magnesium hydronephrosis abdominal distention lower extremity edema. Patient's Sebas appetite is fair. Not much change in her shortness of breath. She does have oxygen at home. No change in bowel movements. Does have pain in the joints. Edema has been worsening. Denies any fever and chills Review of systems: GEN.: Tired EYES: None HEENT: None NECK: None RESPIRATORY: As above CARDIOVASCULAR: Edema GASTROINTESTINAL: None GENITOURINARY: None MUSCULOSKELETAL: Some pain in the joints LYMPHATICS: None HEMATOLOGICAL: None PSYCHIATRY: Forgetful NEUROLOGICAL: Does use a cane Past medical history: To include Chronic kidney disease stage III, COPD, hypertension, hyperlipidemia, persistent atrial fibrillation, secondary probably hypertension, moderate tricuspid regurgitation,: Breast cancer followed by bilateral mastectomy, stroke, small bowel obstruction Schizophrenia Social history: Lives at [facility] apartment. Patient smoked for approximately 30 years stopped around age of 51. No alcohol. Does use a cane. Family history: Patient does not remember Physical examination: VITAL SIGNS: 98, 83, 16, 127/78, 96% room air GENERAL: BMI 30.4, sitting up in bed, awake, not in distress EYES: Pupils equal. Conjunctiva normal. HEENT: External appearance of nose and ears normal, oral cavity grossly normal. NECK: JVD possibly raised; masses not palpable. HEART: First and second heart sounds are normal; significant edema LUNGS: Respiratory rate increased, diminished breath sound ABDOMEN: Soft, distended nontender, liver spleen not palpable, no masses palpable. PSYCH: Patient able to answer some simple questions. Otherwise forgetfull. NEUROLOGICAL: Cranial nerves grossly intact; no facial asymmetry, power and sensation grossly intact. LYMPHATICS: No lymph nodes palpable in the axilla and neck MUSCULOSKELETAL: Evidence of OA especially in the hands INVESTIGATIONS, reviewed in the clinical context: White count 6.6 hemoglobin 9.3 platelets 378 potassium 2.9 BUN 47 creatinine 1.96 albumin 2.7 Influenza type A, diabetes, RSV, COVID 19 [PCR]: Not detected EKG tracing personally reviewed by me-atrial fibrillation, rate 74 Previous labs: BUN 42 creatinine 1.16 from 2019 Assessment and plan: -Possible acute on chronic congestive heart failure exacerbation from diastolic dysfunction Lasix drip. Strict I's and O's. 2-D echocardiogram. -Possible acute kidney injury from cardiorenal syndrome Consult nephrology. UA. -Tracheobronchomalacia -Chronic kidney disease stage III probably from nephrosclerosis Follow renal function -GERD Prilosec 20 mg twice a day - COPD in ex-smoker Pulmicort 0.5 mg twice a day. Advair 1 puff twice a day -Essential hypertension with chronic kidney disease Lopressor 25 mg twice a day -Hyperlipidemia Zocor 20 mg daily at bedtime -Persistent atrial fibrillation rate control Eliquis 5 mg twice a day he did Lopressor 25 mg twice a day -Secondary severe pulmonary hypertension, possible cor pulmonale Lasix drip -Moderate tricuspid regurgitation Follow clinically -Moderate cognitive impairment, likely from Alzheimer's dementia -Chronic gait dysfunction baseline uses a cane Fall precautions Lasix drip. 10 mg hour. Strict I's and O's. 2-D echocardiogram. Consult nephrology. Resume home medications. Follow labs. Renal ultrasound. Given the complexity and severity of patient's condition expect the patient to be in the hospital at least for 2 overnights Past Medical History Past Medical History: Cancer, COPD, CVA/TIA, Hyperlipidemia, Hypertension Additional Past Medical History / Comment(s): colon & breast CA and the patient is post bilateral mastectomy, hypertension, hyperlipidemia, CVA, COPD, chronic atrial fibrillation, chronic kidney disease stage III, previous history of small bowel obstruction related to abdominal adhesions that was released surgically Last Myocardial Infarction Date:: unk History of Any Multi-Drug Resistant Organisms: None Reported Past Surgical History: Breast Surgery Additional Past Surgical History / Comment(s): double mastectomy, expiratory laparotomy and release of small bowel obstruction Past Anesthesia/Blood Transfusion Reactions: No Reported Reaction Past Psychological History: Schizophrenia Smoking Status: Former smoker Past Alcohol Use History: None Reported Past Drug Use History: None Reported - Past Family History Mother Additional Family Medical History / Comment(s): "back problems', unable to take a family history from this patient who happens to be a very poor historian Father History Unknown: Yes Medications and Allergies Home Medications Medication Instructions Recorded Confirmed Type Acetaminophen [Tylenol] 650 mg PO BID@0800,199907/25/17 07/08/21 History Calcium Carbonate/Vitamin D3 1 tab PO BID@0800,199907/25/17 07/08/21 History [Calcium 600-Vit D3 10 mcg (400 Iu)] Fluticasone/Salmeterol [Advair 1 puff INHALATION RT-BID 07/25/17 07/08/21 History 250-50 Diskus] Gabapentin [Neurontin] 300 mg PO BID@08,199907/25/17 07/08/21 History Multivit-Min/FA/Lycopen/Lutein 1 tab PO DAILY@0807/25/17 07/08/21 History [Centrum Silver Tablet] Omeprazole [PriLOSEC] 20 mg PO BID@08,199907/25/17 07/08/21 History Promethazine [Phenergan] 12.5 mg PO Q12H PRN 07/25/17 07/08/21 History polyethylene glycoL 3350 [Miralax] 17 gm PO DAILY@0807/25/17 07/08/21 History Apixaban [Eliquis] 5 mg PO BID@799,1999 #0 08/10/17 07/08/21 Rx Budesonide [Pulmicort] 0.5 mg INHALATION RT-BID 09/24/18 07/08/21 History Cyanocobalamin (Vitamin B-12) 1,000 mcg PO DAILY@0800 09/24/18 07/08/21 History [Vitamin B-12] Diphenox-Atrop 2.5-0.025 mg 1 tab PO Q4H PRN 09/24/18 07/08/21 History [Lomotil] Ferrous Gluconate 324 mg PO DAILY@0800 09/24/18 07/08/21 History Hydrocortisone Acetate [Anucort-Hc] 25 mg RECTAL Q12H PRN 09/24/18 07/08/21 History OLANZapine [OLANZapine Odt] 20 mg PO HS@199909/24/18 07/08/21 History bisacodyL [Dulcolax] 10 mg RECTAL DAILY PRN 09/24/18 07/08/21 History Menthol [Biofreeze] 1 applic TOPICAL QID PRN 04/02/19 07/08/21 History Simvastatin [Zocor] 20 mg PO DAILY@0800 04/02/19 07/08/21 History Azithromycin [Zithromax] 250 mg PO MOWEFR 07/08/21 07/08/21 History Carbamide Peroxide [Debrox Otic] 5 drops BOTH EARS BID 07/08/21 07/08/21 History Cholecalciferol [Vitamin D3 (25 50 mcg PO DAILY@0800 07/08/21 07/08/21 History Mcg = 1000 Iu)] Docusate Sodium [Dok] 100 mg PO BID@799,199907/08/21 07/08/21 History Doxycycline Hyclate 100 mg PO BID 07/08/21 07/08/21 History Fluticasone Nasal [place] [Flonase 1 spray EA NOSTRIL DAILY 07/08/21 07/08/21 History Nasal [place]] Furosemide [Lasix] 40 mg PO BID 07/08/21 07/08/21 History Loratadine 10 mg PO DAILY@0800 07/08/21 07/08/21 History Metoprolol Tartrate [Lopressor] 25 mg PO BID@799,199907/08/21 07/08/21 History Potassium Chloride ER [K-Dur 10] 10 meq PO DAILY 07/08/21 07/08/21 History Roflumilast [Daliresp] 250 mcg PO DAILY@0800 07/08/21 07/08/21 History Sennosides-Docusate Sodium 1 tab PO DAILY@0807/08/21 07/08/21 History [Senokot-S] guaiFENesin [Mucinex] 1,200 mg PO BID@799,199907/08/21 07/08/21 History guaiFENesin-DM 100-10MG/5ML 5 ml PO QID PRN 07/08/21 07/08/21 History [Robitussin DM] traMADol HCL 50 mg PO TID PRN 07/08/21 07/08/21 History Allergies Allergy/AdvReac Type Severity Reaction Status Date / Time No Known Allergies Allergy Verified 07/08/21 11:07 Physical Exam Vitals: Vital Signs Temp Pulse Resp BP Pulse Ox 07/08/21 15:51 98.6 F 82 20 126/70 98 07/08/21 15:22 84 16 128/54 07/08/21 12:30 98.0 F 83 16 127/78 96 07/08/21 10:46 97.9 F 75 18 114/53 98 Intake and Output 07/08/21 07/08/21 07/08/21 06:59 14:59 22:59 Other: Weight 90.718 kg Results CBC & Chem 7: 07/08/21 11:42 07/08/21 11:42 Labs: Abnormal Lab Results - Last 24 Hours (Table) 07/08/21 07/08/21 Range/Units 11:42 11:42 RBC 3.49 L (3.80-5.40) m/uL Hgb 9.3 L (11.4-16.0) gm/dL Hct 30.3 L (34.0-46.0) % MCHC 30.7 L (31.0-37.0) g/dL RDW 16.6 H (11.5-15.5) % Lymphocytes # 0.6 L (1.0-4.8) k/uL Potassium 2.9 L (3.5-5.1) mmol/L BUN 47 H (7-17) mg/dL Creatinine 1.96 H (0.52-1.04) mg/dL Glucose 109 H (74-99) mg/dL Magnesium 1.4 L (1.6-2.3) mg/dL Total Protein 5.2 L (6.3-8.2) g/dL Albumin 2.7 L (3.5-5.0) g/dL
[2021-07-08] MEDS: SYMBICORT 80-4.5 MCG INHALER INHALATION SCH (19:35)
[2021-07-08] MEDS: BUDESONIDE 0.5 MG/2 ML NEBU INHALATION SCH (19:35)
[2021-07-08] MEDS ORDERED: GABAPENTIN 300 MG CAP PO SCH (20:00)
[2021-07-08] MEDS ORDERED: DOXYCYCLINE 100 MG CAP PO SCH (21:00)
[2021-07-08] MEDS: ACETAMINOPHEN TAB 325 MG TAB PO SCH (21:31)
[2021-07-08] MEDS: APIXABAN 5 MG TAB PO SCH (21:31)
[2021-07-08] MEDS: METOPROLOL TARTRATE 25 MG TAB PO SCH (21:31)
[2021-07-08] MEDS: DOCUSATE 100 MG CAP PO SCH (21:31)
[2021-07-08] MEDS: CALCIUM CARB-VIT D 500 MG-5 MCG TAB PO SCH (22:06)
[2021-07-08] MEDS: OLANZapine ODT 10 MG TAB PO SCH (22:06)
[2021-07-08] MEDS: GABAPENTIN 300 MG CAP PO SCH (22:06)
--- NOTE | 2021-07-08 22:25 | US ---
EXAMINATION TYPE: US kidneys/renal and bladder DATE OF EXAM: 07/08/2021 COMPARISON: CT CLINICAL HISTORY: kidney failure. Kidney failure. EXAM MEASUREMENTS: Right Kidney: 10.6 x 4.8 x 4.5 cm Left Kidney: 4.6 cm in width. Unable to properly measure due o gas. Limited due to gas. Right Kidney: Hydronephrosis appearance present. Left Kidney: Hydronephrosis appearance present. Lower pole obscured by overlying bowel gas. Bladder: Unable to evaluate, not fully distended. Bilateral Jets seen: No. Ascites noted within RUQ and LUQ. IMPRESSION: There is moderate bilateral hydronephrosis. No evidence of a renal mass. Urinary bladder not well yordy luated. Urinary bladder was almost empty.
[2021-07-08] MEDS: FUROSEMIDE 100 MG in SODIUM CHLORIDE 0.9% 90 ML IV SCH (22:46)
[2021-07-09] MEDS: CARBAMIDE PEROXIDE 6.5% DROPS 15 ML BTL BOTH EARS SCH ×3 (00:13→20:51)
[2021-07-09 05:09] LABS: Appearance,Urine Cloudy (Clear); Bacteria,Urine Rare /hpf; Bilirubin,Urine Negative (Negative); Blood,Urine Moderate (Negative); Color,Urine Yellow; Glucose,Urine (UA) Negative (Negative); Hyaline Casts,Urine 1 /lpf (0-2); Ketones,Urine Negative (Negative); Leukocyte Esterase,Urine Negative (Negative); Mucus,Urine Rare /hpf; Nitrite,Urine Negative (Negative); PH, Urine 6.5 (5.0-8.0); Protein,Urine Negative (Negative); RBC,Urine 2 /hpf (0-5); Specific Gravity,Urine 1.011 (1.001-1.035); Squamous Epithelial Cell,Urine <1 /hpf (0-4); Urobilinogen,Urine <2.0 mg/dL (<2.0); WBC,Urine <1 /hpf (0-5)
[2021-07-09] MEDS: BUDESONIDE 0.5 MG/2 ML NEBU INHALATION SCH ×2 (08:42→20:11)
[2021-07-09] MEDS: SYMBICORT 80-4.5 MCG INHALER INHALATION SCH ×2 (08:42→20:09)
[2021-07-09] MEDS ORDERED: AZITHROMYCIN 250 MG TAB PO SCH (09:00)
[2021-07-09] MEDS: FUROSEMIDE 100 MG in SODIUM CHLORIDE 0.9% 90 ML IV SCH ×2 (09:47→20:50)
[2021-07-09] MEDS: polyethylene glycoL 3350 17 GM POWD.PACK PO SCH (09:49)
[2021-07-09] MEDS: LORATADINE 10 MG TAB PO SCH (09:50)
[2021-07-09] MEDS: FLUTICASONE 50MCG/SPRAY NASAL 16GM EA NOSTRIL SCH (09:50)
[2021-07-09] MEDS: MULTIVITAMINS, THERA 1 EACH TAB PO SCH (09:50)
[2021-07-09] MEDS: PANTOPRAZOLE 40 MG TABLET PO SCH (09:50)
[2021-07-09] MEDS: DOCUSATE 100 MG CAP PO SCH (09:50)
[2021-07-09] MEDS: CYANOCOBALAMIN 500 MCG TAB PO SCH (09:50)
[2021-07-09] MEDS: ACETAMINOPHEN TAB 325 MG TAB PO SCH ×2 (09:51→20:50)
[2021-07-09] MEDS: APIXABAN 5 MG TAB PO SCH ×2 (09:51→20:51)
[2021-07-09] MEDS: FERROUS SULFATE 325 MG TAB PO SCH (09:51)
[2021-07-09] MEDS: CHOLECALCIFEROL 25 MCG (1000 IU) TABLET PO SCH (09:51)
[2021-07-09] MEDS: ATORVASTATIN 10 MG TAB PO SCH (09:51)
[2021-07-09] MEDS: METOPROLOL TARTRATE 25 MG TAB PO SCH ×2 (09:51→20:54)
[2021-07-09] MEDS: SENNOSIDES-DOCUSATE SODIUM 1 EACH TAB PO SCH (09:51)
[2021-07-09] MEDS: ROFLUMILAST 250 MCG PO SCH (09:52)
[2021-07-09] MEDS: POTASSIUM CHLORIDE ER 10 MEQ TAB.ER.PRT PO SCH (09:52)
--- NOTE | 2021-07-09 10:27 | ECHOF ---
Referral Reason:assess LVF MEASUREMENTS -------- HEIGHT: 172.7 cm WEIGHT: 90.7 kg BP: IVSd: 1.2 cm (0.6 - 1.1) LVIDd: 3.7 cm (3.9 - 5.3) LVPWd: 1.5 cm (0.6 - 1.1) EDV(Teich): 59 ml IVSs: 1.4 cm LVIDs: 3.6 cm LVPWs: 1.2 cm %IVS Thck: 13 % ESV(Teich): 53 ml EF(Teich): 9 % %FS: 4 % SV(Teich): 5 ml LA Diam: 4.3 cm (2.7 - 3.8) RVIDd: 2.8 cm (< 3.3) Ao Diam: 3.1 cm (2.0 - 3.7) LA Diam: 4.7 cm (2.7 - 3.8) AV Cusp: 1.5 cm (1.5 - 2.6) EPSS: 0.5 cm LVOT Vmax: 0.96 m/s LVOT maxP.69 mmHg LVOT Vmax: 0.95 m/s LVOT Vmean: 0.65 m/s LVOT maxP.60 mmHg LVOT meanP.90 mmHg LVOT Env.Ti: 249 ms LVOT VTI: 16.1 cm TR Vmax: 3.25 m/s TR maxP.14 mmHg RAP: 5.00 mmHg RVSP: 47.14 mmHg MV EF SLOPE: 62.92 mm/s (70 - 150) MV EXCURSION: 19.09 mm (> 18.000) FINDINGS -------- Undetermined rhythm. This was a technically good study. The left ventricular size is normal. There is mild concentric left ventricular hypertrophy. Overa ll left ventricular systolic function is low-normal with, an EF between 50 - 55 %. The right ventricle is normal in size. LA is moderately dilated 34-39 ml/m2 The right atrial size is normal. There is mild aortic valve sclerosis. There is mild aortic regurgitation. Mild mitral annular calcification present. Ihvk-it-cwuvqhaq mitral regurgitation is present. Sbyg-rh-ohemlzxf tricuspid regurgitation present. There is moderate pulmonary hypertension. The r ight ventricular systolic pressure, as measured by Doppler, is 47.14mmHg. Trace/mild (physiologic) pulmonic regurgitation. There is no pericardial effusion. CONCLUSIONS -------- 1. The left ventricular size is normal. 2. There is mild concentric left ventricular hypertrophy. 3. Overall left ventricular systolic function is low-normal with, an EF between 50 - 55 %. 4. The right ventricle is normal in size. 5. LA is moderately dilated 34-39 ml/m2 6. The right atrial size is normal. 7. There is mild aortic valve sclerosis. 8. There is mild aortic regurgitation. 9. Mild mitral annular calcification present. 10. Rzwo-up-hgetahvl mitral regurgitation is present. 11. Pzah-yd-flbqvify tricuspid regurgitation present. 12. There is moderate pulmonary hypertension. 13. The right ventricular systolic pressure, as measured by Doppler, is 47.14mmHg. 14. Trace/mild (physiologic) pulmonic regurgitation. 15. There is no pericardial effusion. PRECISION DANCER: Adele Abbasi RDCS
[2021-07-09 10:29] LABS: African American GFR (CKD) 27.4 (60.0-200.0); Anion Gap 13.8 mmol/L (10.00-18.00); BUN/Creat Ratio 21.68 Ratio (12.00-20.00); Blood Urea Nitrogen 41.2 mg/dL (9.0-27.0); Calcium 8.7 mg/dL (8.7-10.3); Carbon Dioxide 26.2 mmol/L (20.0-27.5); Magnesium 1.8 mg/dL (1.5-2.4); Non-African American GFR(CKD) 23.6 (60.0-200.0); Potassium 3.2 mmol/L (3.5-5.5)
[2021-07-09] MEDS ORDERED: POTASSIUM CHLORIDE ER 20 MEQ TAB.ER PO STA (10:31)
--- NOTE | 2021-07-09 10:33 | P.NPCON ---
History of Present Illness - Reason for Consult acute renal failure, chronic renal failure - History of Present Illness Reason for consultation: Acute kidney injury on chronic kidney disease History of present illness: Patient is a 86-year-old female seen in consultation for acute kidney injury on chronic kidney disease. Patient's creatinine in March 2019 was as low as 1.16. This admission was elevated at 1.96. Patient presented to the hospital due to abnormal labs. Creatinine was 1.96 on admission. Potassium was low at 2.9 and magnesium level was low at 1.4. Potassium and magnesium were both replaced. She was noted to have quite a bit of edema in the lower extremities and was started on Lasix drip last night. She does not have a [place] catheter. She has been voiding. Blood pressure stable. Patient does have history of diastolic CHF with moderate to severe mitral regurgitation and severe pulmonary hypertension. Renal ultrasound revealed bilateral hydronephrosis. She is curre ntly on room air. Test negative for coronavirus as well as influenza. Vital signs are stable. General: The patient appeared well nourished and normally developed. HEENT: Head exam is unremarkable. LUNGS: Breath sounds decreased. HEART: Rate and Rhythm are regular. ABDOMEN: All, no distention. EXTREMITITES: No edema. Past Medical History Past Medical History: Cancer, COPD, CVA/TIA, Hyperlipidemia, Hypertension Additional Past Medical History / Comment(s): colon & breast CA and the patient is post bilateral mastectomy, hypertension, hyperlipidemia, CVA, COPD, chronic atrial fibrillation, chronic kidney disease stage III, previous history of small bowel obstruction related to abdominal adhesions that was released surgically Last Myocardial Infarction Date:: unk History of Any Multi-Drug Resistant Organisms: None Reported Past Surgical History: Breast Surgery Additional Past Surgical History / Comment(s): double mastectomy, expiratory laparotomy and release of small bowel obstruction Past Anesthesia/Blood Transfusion Reactions: No Reported Reaction Smoking Status: Former smoker - Past Family History Mother Additional Family Medical History / Comment(s): "back problems', unable to take a family history from this patient who happens to be a very poor historian Father History Unknown: Yes Medications and Allergies Home Medications Medication Instructions Recorded Confirmed Type Acetaminophen [Tylenol] 650 mg PO BID@0800,199907/25/17 07/08/21 History Calcium Carbonate/Vitamin D3 1 tab PO BID@0800,199907/25/17 07/08/21 History [Calcium 600-Vit D3 10 mcg (400 Iu)] Fluticasone/Salmeterol [Advair 1 puff INHALATION RT-BID 07/25/17 07/08/21 History 250-50 Diskus] Gabapentin [Neurontin] 300 mg PO BID@08,199907/25/17 07/08/21 History Multivit-Min/FA/Lycopen/Lutein 1 tab PO DAILY@0800 07/25/17 07/08/21 History [Centrum Silver Tablet] Omeprazole [PriLOSEC] 20 mg PO BID@08,199907/25/17 07/08/21 History Promethazine [Phenergan] 12.5 mg PO Q12H PRN 07/25/17 07/08/21 History polyethylene glycoL 3350 [Miralax] 17 gm PO DAILY@0807/25/17 07/08/21 History Apixaban [Eliquis] 5 mg PO BID@799,1999 #0 08/10/17 07/08/21 Rx Budesonide [Pulmicort] 0.5 mg INHALATION RT-BID 09/24/18 07/08/21 History Cyanocobalamin (Vitamin B-12) 1,000 mcg PO DAILY@0800 09/24/18 07/08/21 History [Vitamin B-12] Diphenox-Atrop 2.5-0.025 mg 1 tab PO Q4H PRN 09/24/18 07/08/21 History [Lomotil] Ferrous Gluconate 324 mg PO DAILY@0800 09/24/18 07/08/21 History Hydrocortisone Acetate [Anucort-Hc] 25 mg RECTAL Q12H PRN 09/24/18 07/08/21 History OLANZapine [OLANZapine Odt] 20 mg PO HS@199909/24/18 07/08/21 History bisacodyL [Dulcolax] 10 mg RECTAL DAILY PRN 09/24/18 07/08/21 History Menthol [Biofreeze] 1 applic TOPICAL QID PRN 04/02/19 07/08/21 History Simvastatin [Zocor] 20 mg PO DAILY@0800 04/02/19 07/08/21 History Azithromycin [Zithromax] 250 mg PO MOWEFR 07/08/21 07/08/21 History Carbamide Peroxide [Debrox Otic] 5 drops BOTH EARS BID 07/08/21 07/08/21 History Cholecalciferol [Vitamin D3 (25 50 mcg PO DAILY@0800 07/08/21 07/08/21 History Mcg = 1000 Iu)] Docusate Sodium [Dok] 100 mg PO BID@0800,199907/08/21 07/08/21 History Doxycycline Hyclate 100 mg PO BID 07/08/21 07/08/21 History Fluticasone Nasal [place] [Flonase 1 spray EA NOSTRIL DAILY 07/08/21 07/08/21 History Nasal [place]] Furosemide [Lasix] 40 mg PO BID 07/08/21 07/08/21 History Loratadine 10 mg PO DAILY@0800 07/08/21 07/08/21 History Metoprolol Tartrate [Lopressor] 25 mg PO BID@08,199907/08/21 07/08/21 History Potassium Chloride ER [K-Dur 10] 10 meq PO DAILY 07/08/21 07/08/21 History Roflumilast [Daliresp] 250 mcg PO DAILY@0800 07/08/21 07/08/21 History Sennosides-Docusate Sodium 1 tab PO DAILY@0800 07/08/21 07/08/21 History [Senokot-S] guaiFENesin [Mucinex] 1,200 mg PO BID@08,199907/08/21 07/08/21 History guaiFENesin-DM 100-10MG/5ML 5 ml PO QID PRN 07/08/21 07/08/21 History [Robitussin DM] traMADol HCL 50 mg PO TID PRN 07/08/21 07/08/21 History Allergies Allergy/AdvReac Type Severity Reaction Status Date / Time No Known Allergies Allergy Verified 07/08/21 11:07 Physical Exam Vitals: Vital Signs Temp Pulse Pulse Resp BP BP Pulse Ox 07/09/21 09:48 123 H 135/70 97 07/09/21 05:00 98.1 F 91 16 123/74 96 07/08/21 20:44 97.5 F L 107 H 16 105/66 99 07/08/21 15:51 98.6 F 82 20 126/70 98 07/08/21 15:22 84 16 128/54 07/08/21 12:30 98.0 F 83 16 127/78 96 07/08/21 10:46 97.9 F 75 18 114/53 98 Intake and Output 07/08/21 07/09/21 07/09/21 22:59 06:59 14:59 Intake Total 60 100 Balance 60 100 Intake: Intake, IV Titration 100 Amount Furosemide 100 mg In 100 Sodium Chloride 0.9% 90 ml @ 10 MG/HR 10 mls/hr IV .Q10H [facility] Rx#: [id number] Oral 60 Other: Voiding Method Diaper Diaper Incontinent Incontinent # Voids 3 Weight 91 kg Results - Lab Results Most recent lab results Calcium 8.9 mg/dL (8.4-10.2) 07/08/21 11:42 Magnesium 1.4 mg/dL (1.6-2.3) L 07/08/21 11:42 07/08/21 11:42 07/08/21 11:42 Assessment and Plan Plan: Assessment: 1. Acute kidney injury secondary to ATN secondary to cardiorenal syndrome. Creatinine 1.96 on admission - stable at 1.9 today. Also component of obstructive uropathy. 2. Bilateral hydronephrosis. 3. Acute on chronic diastolic CHF with moderate to severe mitral regurgitation and severe pulmonary hypertension. 4. Hypokalemia from diuresis. Replaced. Better. 5. Hypomagnesemia from diuresis. Replaced. Better. 6. Chronic kidney disease stage IIIa with creatinine as low as 1.16 in March 2019. Etiology is nephrosclerosis. No proteinuria on UA. 7. Anemia of chronic kidney disease. Rule out iron deficiency. Plan: Maintain Lasix drip. 1500 mL fluid restriction. Consult urology for the hydronephrosis. Replace potassium. Repeat labs in the morning. Continue to monitor renal function and urine output. Check iron studies. Thank you for the consultation. I will continue to follow the patient with you during her hospital stay.
[2021-07-09] MEDS: CALCIUM CARB-VIT D 500 MG-5 MCG TAB PO SCH ×2 (12:18→20:51)
--- NOTE | 2021-07-09 13:55 | NM ---
EXAMINATION TYPE: NM pul perfusion DATE OF EXAM: 07/09/2021 COMPARISON: NONE HISTORY: assess pulm HTN/ chronic peripheral PE Following administration of 4.4 mCi Tc 99m MAA. Images obtained post injection. FINDINGS: Examination was aborted given patient's inability to complete examination. IMPRESSION: As above
--- NOTE | 2021-07-09 15:15 | US ---
EXAMINATION TYPE: US abdomen limited DATE OF EXAM: 07/09/2021 COMPARISON: renal us CLINICAL HISTORY: assess for intra-abdominal DVT. Nausea and vomiting; HERNESTO,dehydration, hypokalemia, EXAM MEASUREMENTS: Liver Length: 16.8 cm Gallbladder Wall: 0.6 cm CBD: 0.7cm Right Kidney: 12.9 x 9.1 x 5.6 cm Pancreas: hyperechoic Liver: surrounded by ascites Roberta Vein Flow is to Liver. Hepatic Vein Flow is to IVC IVC is patent superiorly as visualized. Aorta is patent superiorly. Gallbladder: abnormally thickened wall is noted; large non mobile shadowing stone is seen in neck; l obular sludge noted mid lumen Evidence for sonographic Odom's sign: patient stated "no" CBD: wnl for 8th decade Right Kidney: moderate hydronephrosis is seen Incidental right pleural effusion is seen. Ascites is seen is RUQ, RLQ = 8.7cm A/P, LLQ = 8.5cm A/P. IMPRESSION: 1. Gallbladder wall thickening with a nonmobile gallstone in the gallbladder neck and associated slud ge. 2. Right kidney demonstrates moderate hydronephrosis. 3. Ascites. 4 right-sided pleural effusion
[2021-07-09 15:56] LABS: % Iron Saturation 5.19 (12.00-45.00); Ferritin 26.2 ng/mL (10.0-291.0)
--- NOTE | 2021-07-09 16:40 | P.PN ---
Progress Note - Text Progress Note Date: 07/09/21 Chief Complaint: Abnormal labs Hospital course: This is a 86-year-old patient of Dr. Beth from visiting physician. Chronic stable medical conditions include chronic kidney disease stage III, COPD, hypertension, hyperlipidemia, persistent atrial fibrillation, secondary pulmonary hypertension, moderate tricuspid regurgitation. Patient not a very good historian.. Sent in with a note from her family doctor Dr. Beth stating that her current conditions include worsening renal function, low potassium and low magnesium hydronephrosis abdominal distention lower extremity edema. Patient'sappetite is fair. Not much change in her shortness of breath. She does have oxygen at home. No change in bowel movements. Does have pain in the joints. Edema has been worsening. Denies any fever and chills Admitted with acute on chronic congestive heart exacerbation. Started on IV Lasix drip. July 09: Pain on Lasix drip. Good urine output. Output was not measured correctly. Oral intake fair. Abdominal ultrasound shows bilateral hydronephrosis. Nephrology consulted. VQ scan ordered to rule out chronic PE: Patient is unable to complete examination. Abdominal ultrasound: Showing ascites, no DVT reported.. Review of systems: Was done for constitutional, cardiovascular, GI, pulmonary. relevant finding as above Active Medications Acetaminophen (Acetaminophen Tab 325 Mg Tab) 650 mg PO Q6HR PRN PRN Reason: Mild Pain or Fever > 100.5 Acetaminophen (Acetaminophen Tab 325 Mg Tab) 650 mg PO BID@00,1999 [facility] Last Admin: 07/09/21 09:51 Dose: 650 mg Documented by: Apixaban (Apixaban 5 Mg Tab) 5 mg PO BID@799,1999 [facility]; Protocol Last Admin: 07/09/21 09:51 Dose: 5 mg Documented by: Atorvastatin Calcium (Atorvastatin 10 Mg Tab) 10 mg PO DAILY@0800 [facility] Last Admin: 07/09/21 09:51 Dose: 10 mg Documented by: Bisacodyl (Bisacodyl 10 Mg Supp) 10 mg RECTAL DAILY PRN PRN Reason: Constipation Budesonide (Budesonide 0.5 Mg/2 Ml Nebu) 0.5 mg INHALATION RT-BID [facility] Last Admin: 07/09/21 08:42 Dose: Not Given Documented by: Budesonide/Formoterol Fumarate (Symbicort 80-4.5 Mcg Inhaler) 2 puff INHALATION RT-BID [facility] Last Admin: 07/09/21 08:42 Dose: Not Given Documented by: Calcium Carbonate (Calcium Carb-Vit D 500 Mg-5 Mcg Tab) 1 each PO BID@ [facility] Last Admin: 07/09/21 12:18 Dose: 1 each Documented by: Carbamide Perox/Anhydrous Glycerin (Carbamide Peroxide 6.5% Drops 15 Ml Btl) 5 drops BOTH EARS BID [facility] Last Admin: 07/09/21 09:51 Dose: 5 drops Documented by: Cholecalciferol (Cholecalciferol 25 Mcg (1000 Iu) Tablet) 50 mcg PO DAILY@0800 [facility] Last Admin: 07/09/21 09:51 Dose: 50 mcg Documented by: Cyanocobalamin (Cyanocobalamin 500 Mcg Tab) 1,000 mcg PO DAILY@08 [facility] Last Admin: 07/09/21 09:50 Dose: 1,000 mcg Documented by: Diphenoxylate HCl/Atropine (Diphenox-Atrop 2.5-0.025 Mg 1 Each Tab) 1 each PO Q4H PRN PRN Reason: Diarrhea Docusate Sodium (Docusate 100 Mg Cap) 100 mg PO BID@ [facility] Last Admin: 07/09/21 09:50 Dose: 100 mg Documented by: Ferrous Sulfate (Ferrous Sulfate 325 Mg Tab) 325 mg PO DAILY@0800 [facility] Last Admin: 07/09/21 09:51 Dose: 325 mg Documented by: Fluticasone Propionate (Fluticasone 50mcg/[place] Nasal 16gm) 1 spray EA NOSTRIL DAILY [facility] Last Admin: 07/09/21 09:50 Dose: 1 spray Documented by: Gabapentin (Gabapentin 300 Mg Cap) 300 mg PO HS [facility] Last Admin: 07/08/21 22:06 Dose: 300 mg Documented by: Guaifenesin/Dextromethorphan (Guaifenesin-Dm 100-10mg/5ml 10 Ml Cup) 5 ml PO QID PRN PRN Reason: Cough Hydrocortisone Acetate (Hydrocortisone Suppository 25 Mg Supp) 25 mg RECTAL Q12H PRN PRN Reason: Hemorrhoids Furosemide 100 mg/ Sodium (Chloride) 100 mls @ 10 mls/hr IV .Q10H [facility] Last Admin: 07/09/21 09:47 Dose: 10 mg/hr, 10 mls/hr Documented by: Loratadine (Loratadine 10 Mg Tab) 10 mg PO DAILY@08 [facility] Last Admin: 07/09/21 09:50 Dose: 10 mg Documented by: Metoprolol Tartrate (Metoprolol Tartrate 25 Mg Tab) 25 mg PO BID@ [facility] Last Admin: 07/09/21 09:51 Dose: 25 mg Documented by: Multivitamins (Multivitamins, Thera 1 Each Tab) 1 each PO DAILY@08 [facility] Last Admin: 07/09/21 09:50 Dose: 1 each Documented by: Naloxone HCl (Naloxone 0.4 Mg/Ml 1 Ml Vial) 0.2 mg IV Q2M PRN PRN Reason: Opioid Reversal Non-Formulary Medication (Roflumilast [Daliresp]) 250 mcg PO DAILY@799 [facility] Last Admin: 07/09/21 09:52 Dose: Not Given Documented by: Non-Formulary Medication (Menthol [Biofreeze]) 1 applic TOPICAL QID PRN PRN Reason: Pain Olanzapine (Olanzapine Odt 10 Mg Tab) 20 mg PO HS@1999 [facility] Last Admin: 07/08/21 22:06 Dose: 20 mg Documented by: Pantoprazole Sodium (Pantoprazole 40 Mg Tablet) 40 mg PO DAILY@0730 [facility] Last Admin: 07/09/21 09:50 Dose: 40 mg Documented by: Polyethylene Glycol (Polyethylene Glycol 3350 17 Gm Powd.Pack) 17 gm PO DAILY@08 [facility] Last Admin: 07/09/21 09:49 Dose: 17 gm Documented by: Potassium Chloride (Potassium Chloride Er 10 Meq Tab.Er.Prt) 10 meq PO DAILY [facility] Last Admin: 07/09/21 09:52 Dose: 10 meq Documented by: Promethazine HCl (Promethazine 25 Mg Tab) 12.5 mg PO Q12H PRN PRN Reason: Nausea Last Admin: 07/09/21 11:21 Dose: 12.5 mg Documented by: Senna/Docusate Sodium (Sennosides-Docusate Sodium 1 Each Tab) 1 each PO [place] LY@0800 [facility] Last Admin: 07/09/21 09:51 Dose: 1 each Documented by: Tramadol HCl (Tramadol 50 Mg Tab) 50 mg PO TID PRN PRN Reason: Pain Past medical history: To include Chronic kidney disease stage III, COPD, hypertension, hyperlipidemia, persistent atrial fibrillation, secondary probably hypertension, moderate tricuspid regurgitation,: Breast cancer followed by bilateral mastectomy, stroke, small bowel obstruction Schizophrenia Social history: Lives at [facility] apartment. Patient smoked for approximately 30 years stopped around age of 51. No alcohol. Does use a cane. Family history: Patient does not remember Physical examination: VITAL SIGNS: 98.7, 110, 18, 1:30/71, 95% room air GENERAL: Reclining in bed, awake, EYES: Pupils equal. Conjunctiva normal. HEENT: External appearance of nose and ears normal, oral cavity grossly normal. NECK: JVD possibly raised; masses not palpable. HEART: First and second heart sounds are normal; significant edema LUNGS: Respiratory rate increased, diminished breath sound ABDOMEN: Soft, distended nontender, liver spleen not palpable, no masses palpable. PSYCH: Patient able to answer some simple questions. Otherwise forgetfull. MUSCULOSKELETAL: Evidence of OA especially in the hands INVESTIGATIONS, reviewed in the clinical context: July 09: Potassium 3.2 BUN 41.2 creatinine 1.9. Iron 18% saturation 5.19 2-D echocardiogram: EF 50-55%. Right ventricle normal in size. [id number] mitral and tricuspid regurgitation. Moderate pulmonary hypertension VQ scan: Not completed as patient is not able to do the same Abdominal ultrasound: Ascites. Pleural effusion. No DVT reported. Gallstone. Thickened wall. Right kidney moderate hydronephrosis. Renal ultrasound: Moderate bilateral hydronephrosis. No evidence of renal mass. Urinary bladder not visualized. White count 6.6 hemoglobin 9.3 platelets 378 potassium 2.9 BUN 47 creatinine 1.96 albumin 2.7 Influenza type A, diabetes, RSV, COVID 19 [PCR]: Not detected EKG tracing personally reviewed by me-atrial fibrillation, rate 74 Previous labs: BUN 42 creatinine 1.16 from 2019 Assessment and plan: -Possible acute on chronic congestive heart failure exacerbation from diastolic dysfunction Lasix drip. Strict I's and O's. -Possible acute kidney injury from cardiorenal syndrome: Prerenal Lasix drip. Follow with nephrology -Bilateral moderate hydronephrosis. Urology consulted -Tracheobronchomalacia -Chronic kidney disease stage III probably from nephrosclerosis Follow renal function -GERD Prilosec 20 mg twice a day - COPD in ex-smoker Pulmicort 0.5 mg twice a day. Advair 1 puff twice a day -Essential hypertension with chronic kidney disease Lopressor 25 mg twice a day -Hyperlipidemia Zocor 20 mg daily at bedtime -Persistent atrial fibrillation rate control Eliquis 5 mg twice a day he did Lopressor 25 mg twice a day -Secondary moderate pulmonary hypertension, possible cor pulmonale Lasix drip -Moderate tricuspid regurgitation Follow clinically -Moderate cognitive impairment, likely from Alzheimer's dementia -Chronic gait dysfunction baseline uses a cane Fall precautions Continue Lasix drip at 10 mg an hour. Radford catheter was strict urine output. VQ scan could not be done. Some abdominal ascites and left pleural effusion. Likely from CHF. Follow labs. Urology consulted.
[2021-07-09] MEDS: PSYLLIUM HUSK 100% 6 GM PACKET PO SCH (17:58)
[2021-07-09] MEDS: GABAPENTIN 300 MG CAP PO SCH (20:51)
[2021-07-09] MEDS: OLANZapine ODT 10 MG TAB PO SCH (20:51)
[2021-07-10] MEDS ORDERED: ONDANSETRON 4 MG/2 ML VIAL IVP STA (04:11)
--- NOTE | 2021-07-10 04:51 | XR ---
EXAMINATION TYPE: XR abdomen 1V DATE OF EXAM: 07/10/2021 COMPARISON: NONE HISTORY: Vomiting. TECHNIQUE: 2 views supine FINDINGS: There is some infiltrate left lower lobe. There is no evidence of free air. I see no eviden ce of abdominal mass. There are no definite calcifications over the kidneys. IMPRESSION: Nonacute abdomen. Left lower lobe infiltrate.
--- NOTE | 2021-07-10 04:53 | XR ---
EXAMINATION TYPE: XR chest 1V DATE OF EXAM: 07/10/2021 COMPARISON: 07/08/2021 HISTORY: Vomiting TECHNIQUE: FINDINGS: There is some left lower lobe infiltrate. There is blunting left costophrenic angle. No hea rt failure. Heart is enlarged. IMPRESSION: There is increasing left lower lobe infiltrate and pleural fluid compared to last exam.
[2021-07-10] MEDS: FUROSEMIDE 100 MG in SODIUM CHLORIDE 0.9% 90 ML IV SCH ×2 (06:11→19:15)
[2021-07-10 06:26] LABS: Anisocytosis Slight; Basophils % (A) 0 %; Eosinophils % (A) 0 %; HCT 28.9 % (34.0-46.0); HGB 8.7 gm/dL (11.4-16.0); Hypochromasia Marked; Lymphocytes # (A) 0.3 k/uL (1.0-4.8); Lymphocytes % (A) 4 %; MCHC 29.9 g/dL (31.0-37.0); MCV 86.7 fL (80.0-100.0); Mean Platelet Volume 7.6; Monocytes # (A) 0.5 k/uL (0-1.0); Monocytes % (A) 6 %; Neutrophils # (A) 6.6 k/uL (1.3-7.7); Neutrophils % (A) 88 %; Platelet Count 373 k/uL (150-450); RBC 3.34 m/uL (3.80-5.40); RDW 16.4 % (11.5-15.5); WBC 7.5 k/uL (3.8-10.6)
[2021-07-10 06:36] LABS: African American GFR (CKD) 29 (>60 ml/min/1.73 sqM); Anion Gap 4 mmol/L; Blood Urea Nitrogen 47 mg/dL (7-17); Calcium 9.2 mg/dL (8.4-10.2); Carbon Dioxide 38 mmol/L (22-30); Chloride 97 mmol/L (98-107); Glucose 130 mg/dL (74-99); Magnesium 1.6 mg/dL (1.6-2.3); Non-African American GFR(CKD) 26 (>60 ml/min/1.73 sqM); Potassium 3.2 mmol/L (3.5-5.1); Sodium 139 mmol/L (137-145)
[2021-07-10] MEDS: SYMBICORT 80-4.5 MCG INHALER INHALATION SCH ×2 (08:08→23:17)
[2021-07-10] MEDS: METOPROLOL TARTRATE 25 MG TAB PO SCH ×2 (09:40→22:25)
[2021-07-10] MEDS: APIXABAN 5 MG TAB PO SCH ×2 (09:41→22:22)
[2021-07-10] MEDS: CARBAMIDE PEROXIDE 6.5% DROPS 15 ML BTL BOTH EARS SCH ×2 (09:43→23:32)
[2021-07-10] MEDS: FLUTICASONE 50MCG/SPRAY NASAL 16GM EA NOSTRIL SCH (09:43)
--- NOTE | 2021-07-10 10:15 | P.GSCN ---
History of Present Illness Consult date: 07/10/21 Reason for Consult: Hydronephrosis Requesting physician: Nicolas Goldsmith History of present illness: The patient is an 86-year-old white female with a history of chronic kidney disease stage III, COPD, hypertension, hyperlipidemia, atrial fibrillation, secondary pulmonary hypertension, and moderate tricuspid regurgitation. She is admitted with worsened kidney function. Ultrasound shows bilateral hydronephrosis. A CT scan in July 2017 showed no evidence of hydronephrosis. She has unfortunately a vague historian and is unable to provide much history. Review of Systems ROS unobtainable: due to mental status Past Medical History Past Medical History: Cancer, COPD, CVA/TIA, Hyperlipidemia, Hypertension Additional Past Medical History / Comment(s): colon & breast CA and the patient is post bilateral mastectomy, hypertension, hyperlipidemia, CVA, COPD, chronic atrial fibrillation, chronic kidney disease stage III, previous history of small bowel obstruction related to abdominal adhesions that was released surgically Last Myocardial Infarction Date:: unk History of Any Multi-Drug Resistant Organisms: None Reported Past Surgical History: Breast Surgery Additional Past Surgical History / Comment(s): double mastectomy, expiratory laparotomy and release of small bowel obstruction Past Anesthesia/Blood Transfusion Reactions: No Reported Reaction Smoking Status: Former smoker - Past Family History Mother Additional Family Medical History / Comment(s): "back problems', unable to take a family history from this patient who happens to be a very poor historian Father History Unknown: Yes Medications and Allergies Home Medications Medication Instructions Recorded Confirmed Type Acetaminophen [Tylenol] 650 mg PO BID@0800,199907/25/17 07/08/21 History Calcium Carbonate/Vitamin D3 1 tab PO BID@0800,199907/25/17 07/08/21 History [Calcium 600-Vit D3 10 mcg (400 Iu)] Fluticasone/Salmeterol [Advair 1 puff INHALATION RT-BID 07/25/17 07/08/21 History 250-50 Diskus] Gabapentin [Neurontin] 300 mg PO BID@0800,199907/25/17 07/08/21 History Multivit-Min/FA/Lycopen/Lutein 1 tab PO DAILY@0800 07/25/17 07/08/21 History [Centrum Silver Tablet] Omeprazole [PriLOSEC] 20 mg PO BID@0800,199907/25/1707/08/21 History Promethazine [Phenergan] 12.5 mg PO Q12H PRN 07/25/17 07/08/21 History polyethylene glycoL 3350 [Miralax] 17 gm PO DAILY@0800 07/25/17 07/08/21 History Apixaban [Eliquis] 5 mg PO BID@799,1999 #0 08/10/17 07/08/21 Rx Budesonide [Pulmicort] 0.5 mg INHALATION RT-BID 09/24/18 07/08/21 History Cyanocobalamin (Vitamin B-12) 1,000 mcg PO DAILY@0800 09/24/18 07/08/21 History [Vitamin B-12] Diphenox-Atrop 2.5-0.025 mg 1 tab PO Q4H PRN 09/24/18 07/08/21 History [Lomotil] Ferrous Gluconate 324 mg PO DAILY@0800 09/24/18 07/08/21 History Hydrocortisone Acetate [Anucort-Hc] 25 mg RECTAL Q12H PRN 09/24/18 07/08/21 History OLANZapine [OLANZapine Odt] 20 mg PO HS@199909/24/18 07/08/21 History bisacodyL [Dulcolax] 10 mg RECTAL DAILY PRN 09/24/18 07/08/21 History Menthol [Biofreeze] 1 applic TOPICAL QID PRN 04/02/19 07/08/21 History Simvastatin [Zocor] 20 mg PO DAILY@0800 04/02/19 07/08/21 History Azithromycin [Zithromax] 250 mg PO MOWEFR 07/08/21 07/08/21 History Carbamide Peroxide [Debrox Otic] 5 drops BOTH EARS BID 07/08/21 07/08/21 History Cholecalciferol [Vitamin D3 (25 50 mcg PO DAILY@0800 07/08/21 07/08/21 History Mcg = 1000 Iu)] Docusate Sodium [Dok] 100 mg PO BID@799,199907/08/21 07/08/21 History Doxycycline Hyclate 100 mg PO BID 07/08/21 07/08/21 History Fluticasone Nasal [place] [Flonase 1 spray EA NOSTRIL DAILY 07/08/21 07/08/21 History Nasal [place]] Furosemide [Lasix] 40 mg PO BID 07/08/21 07/08/21 History Loratadine 10 mg PO DAILY@0800 07/08/21 07/08/21 History Metoprolol Tartrate [Lopressor] 25 mg PO BID@799,199907/08/21 07/08/21 History Potassium Chloride ER [K-Dur 10] 10 meq PO DAILY 07/08/21 07/08/21 History Roflumilast [Daliresp] 250 mcg PO DAILY@79907/08/21 07/08/21 History Sennosides-Docusate Sodium 1 tab PO DAILY@79907/08/21 07/08/21 History [Senokot-S] guaiFENesin [Mucinex] 1,200 mg PO BID@799,199907/08/21 07/08/21 History guaiFENesin-DM 100-10MG/5ML 5 ml PO QID PRN 07/08/21 07/08/21 History [Robitussin DM] traMADol HCL 50 mg PO TID PRN 07/08/21 07/08/21 History Allergies Allergy/AdvReac Type Severity Reaction Status Date / Time No Known Allergies Allergy Verified 07/08/21 11:07 Surgical - Exam Vital Signs Temp Pulse Resp BP Pulse Ox 97.9 F 75 18 114/53 98 07/08/21 10:46 07/08/21 10:46 07/08/21 10:46 07/08/21 10:46 07/08/21 10:46 - General well developed, well nourished, no distress - Respiratory normal respiratory effort - Abdomen Abdomen: soft, non tender, no guarding, no rigid, no rebound Results - Labs 07/10/21 05:40 07/10/21 05:40 Abnormal Lab Results - Last 24 Hours (Table) 07/09/21 07/09/21 07/10/21 Range/Units 04:50 04:50 05:40 RBC (3.80-5.40) m/uL Hgb (11.4-16.0) gm/dL Hct (34.0-46.0) % MCHC (31.0-37.0) g/dL RDW (11.5-15.5) % Lymphocytes # (1.0-4.8) k/uL Potassium 3.2 L 3.2 L (3.5-5.5) mmol/L Chloride 97 L (98-107) mmol/L Carbon Dioxide 38 H (22-30) mmol/L BUN 41.2 H 47 H (9.0-27.0) mg/dL Creatinine 1.9 H 1.79 H (0.6-1.5) mg/dL Est GFR (CKD-EPI)AfAm 27.4 L (60.0-200.0) Est GFR (CKD-EPI)NonAf 23.6 L (60.0-200.0) BUN/Creatinine Ratio 21.68 H (12.00-20.00) Ratio Glucose 130 H (74-99) mg/dL Iron 18 L (50-170) ug/dL % Saturation 5.19 L (12.00-45.00) 07/10/21 Range/Units 05:40 RBC 3.34 L (3.80-5.40) m/uL Hgb 8.7 L (11.4-16.0) gm/dL Hct 28.9 L (34.0-46.0) % MCHC 29.9 L (31.0-37.0) g/dL RDW 16.4 H (11.5-15.5) % Lymphocytes # 0.3 L (1.0-4.8) k/uL Potassium (3.5-5.5) mmol/L Chloride (98-107) mmol/L Carbon Dioxide (22-30) mmol/L BUN (9.0-27.0) mg/dL Creatinine (0.6-1.5) mg/dL Est GFR (CKD-EPI)AfAm (60.0-200.0) Est GFR (CKD-EPI)NonAf (60.0-200.0) BUN/Creatinine Ratio (12.00-20.00) Ratio Glucose (74-99) mg/dL Iron (50-170) ug/dL % Saturation (12.00-45.00) Diabetes panel 07/09/21 07/10/21 Range/Units 04:50 05:40 Sodium 142 139 (135-145) mmol/L Potassium 3.2 L 3.2 L (3.5-5.5) mmol/L Chloride 102 97 L (96-109) mmol/L Carbon Dioxide 26.2 38 H (20.0-27.5) mmol/L BUN 41.2 H 47 H (9.0-27.0) mg/dL Creatinine 1.9 H 1.79 H (0.6-1.5) mg/dL Glucose 92 130 H (70-110) mg/dL Calcium 8.7 9.2 (8.7-10.3) mg/dL Calcium panel 07/09/21 07/10/21 Range/Units 04:50 05:40 Calcium 8.7 9.2 (8.7-10.3) mg/dL Pituitary panel 07/09/21 07/10/21 Range/Units 04:50 05:40 Sodium 142 139 (135-145) mmol/L Potassium 3.2 L 3.2 L (3.5-5.5) mmol/L Chloride 102 97 L (96-109) mmol/L Carbon Dioxide 26.2 38 H (20.0-27.5) mmol/L BUN 41.2 H 47 H (9.0-27.0) mg/dL Creatinine 1.9 H 1.79 H (0.6-1.5) mg/dL Glucose 92 130 H (70-110) mg/dL Calcium 8.7 9.2 (8.7-10.3) mg/dL Adrenal panel 07/09/21 07/10/21 Range/Units 04:50 05:40 Sodium 142 139 (135-145) mmol/L Potassium 3.2 L 3.2 L (3.5-5.5) mmol/L Chloride 102 97 L (96-109) mmol/L Carbon Dioxide 26.2 38 H (20.0-27.5) mmol/L BUN 41.2 H 47 H (9.0-27.0) mg/dL Creatinine 1.9 H 1.79 H (0.6-1.5) mg/dL Glucose 92 130 H (70-110) mg/dL Calcium 8.7 9.2 (8.7-10.3) mg/dL - Imaging US - kidney/bladder: report reviewed Assessment and Plan (1) Unspecified hydronephrosis Current Visit: Yes Status: Acute Code(s): N13.30 - UNSPECIFIED HYDRONEPHROSI S SNOMED Code(s): 19776087 Plan: The serum creatinine level today is 1.79. The creatinine level has improved slightly each day since she was admitted, and does not appear to be significantly different than baseline. The cause of hydronephrosis is indeterminant, but is not due to urinary retention as the bladder was noted to be empty on ultrasound. It would be reasonable to obtain a CT scan of the abdomen and pelvis for further evaluation, Time with Patient: Greater than 30
[2021-07-10] MEDS: ACETAMINOPHEN TAB 325 MG TAB PO SCH ×2 (11:29→22:27)
[2021-07-10] MEDS: CALCIUM CARB-VIT D 500 MG-5 MCG TAB PO SCH ×2 (11:29→22:22)
[2021-07-10] MEDS: ATORVASTATIN 10 MG TAB PO SCH (11:29)
[2021-07-10] MEDS: PANTOPRAZOLE 40 MG TABLET PO SCH (11:29)
[2021-07-10] MEDS: FERROUS SULFATE 325 MG TAB PO SCH (11:30)
[2021-07-10] MEDS: polyethylene glycoL 3350 17 GM POWD.PACK PO SCH (11:30)
[2021-07-10] MEDS: MULTIVITAMINS, THERA 1 EACH TAB PO SCH (11:30)
[2021-07-10] MEDS: CYANOCOBALAMIN 500 MCG TAB PO SCH (11:30)
[2021-07-10] MEDS: CHOLECALCIFEROL 25 MCG (1000 IU) TABLET PO SCH (11:30)
[2021-07-10] MEDS: LORATADINE 10 MG TAB PO SCH (11:30)
[2021-07-10] MEDS: PSYLLIUM HUSK 100% 6 GM PACKET PO SCH (11:31)
[2021-07-10] MEDS: ROFLUMILAST 250 MCG PO SCH (11:31)
[2021-07-10] MEDS: SENNOSIDES-DOCUSATE SODIUM 1 EACH TAB PO SCH (11:31)
--- NOTE | 2021-07-10 12:15 | CT ---
EXAMINATION TYPE: CT abdomen pelvis wo con DATE OF EXAM: 07/10/2021 COMPARISON: CT 07/31/2017 HISTORY: Hydronephrosis CT DLP: 898.5 mGycm Automated exposure control for dose reduction was used. TECHNIQUE: Helical acquisition of images from the lung bases through the pelvis. FINDINGS: Motion is present on the exam, lack of contrast could compromise sensitivity. The heart is enlarged. There are anasarca changes. LUNG BASES: There is a left pleural effusion, bibasilar atelectasis. AORTA: No significant abnormality is appreciated. LIVER/GB: No significant abnormality is appreciated. PANCREAS: No significant abnormality is seen. SPLEEN: No significant abnormality is seen. ADRENALS: No significant abnormality is seen. KIDNEYS: Interval development of bilateral hydronephrosis noted. Abnormal soft tissue in the pelvis i s indeterminate, no definite ureteral calculus REPRODUCTIVE ORGANS: Not well seen. URINARY BLADDER: Thickened bladder wall is indeterminate.. BOWEL: No significant abnormality is seen. FREE AIR: No Free Air is visible. ASCITES: ascites is present.. PELVIC ADENOPATHY: None visualized. RETROPERITONEAL ADENOPATHY: No Retroperitoneal Adenopathy visible. OSSEOUS STRUCTURES: No significant abnormality is seen. IMPRESSION: INTERVAL DEVELOPMENT OF BILATERAL HYDRONEPHROSIS. THERE IS EXTENSIVE MOTION PRESENT, THERE ARE CHANGE S OF ANASARCA, ASCITES, PLEURAL EFFUSION AND CARDIOMEGALY AND ADDITIONAL FINDINGS ABOVE.
[2021-07-10] MEDS ORDERED: POTASSIUM CHLORIDE ER 20 MEQ TAB.ER PO STA (12:41)
--- NOTE | 2021-07-10 12:58 | P.PN ---
Subjective Progress Note Date: 07/10/21 Principal diagnosis: Patient is a 86-year-old female seen in consultation for acute kidney injury on chronic kidney disease. Patient's creatinine in March 2019 was as low as 1 .16. This admission was elevated at 1.96. Patient presented to the hospital due to abnormal labs. Creatinine was 1.96 on admission. Potassium was low at 2.9 and magnesium level was low at 1.4. Potassium and magnesium were both replaced. She was noted to have quite a bit of edema in the lower extremities and was started on Lasix drip last night. She does not have a Radford catheter. She has been voiding. Blood pressure stable. Patient does have history of diastolic CHF with moderate to severe mitral regurgitation and severe pulmonary hypertension. Renal ultrasound revealed bilateral hydronephrosis. She is currently on room air. Test negative for coronavirus as well as influenza. Additionally workup Possible Pneumonia Her Urine Output Has Been 15 20 ML, She Has an External Radford Patient Is a Poor Historian. She Denies Any Nausea Vomiting Abdominal Pain and Back Pain. No Dysuria Frequency. Workup Has Shown Bilateral New Hydronephrosis. Both Computed Tomography Scan and Ultrasound Confirmed This the Cause of the Obstruction Is Not Clear Objective - Vital Signs Vital signs: Vital Signs Temp 97.7 F 07/10/21 04:50 Pulse 125 H 07/10/21 09:39 Resp 20 07/10/21 04:50 BP 131/80 07/10/21 09:39 Pulse Ox 97 07/10/21 09:39 Intake & Output 07/09/21 07/10/21 07/10/21 18:59 06:59 18:59 Intake Total 100 293.5 Output Total 1120 400 Balance -1020 -106.5 Intake: Intake, IV Titration 100 193.5 Amount Furosemide 100 mg In 100 193.5 Sodium Chloride 0.9% 90 ml @ 10 MG/HR 10 mls/hr IV .Q10H [facility] Rx#: [id number] Oral 100 Output: Gastric Drainage 300 Urine 1120 Emesis 100 Other: Voiding Method Diaper Diaper Diaper Incontinent Incontinent Incontinent # Voids 3 1,400 On examination he is awake alert and oriented A chin exam no JVP neck is supple no facial asymmetry Lungs significant for bibasilar crackles more on the left than on the right. Heart sounds unremarkable for any murmur rub gallop Abdomen soft nontender no suprapubic tenderness or distention Extremity exam reveals mild to moderate edema Neurologically awake alert oriented but poor historian - Labs CBC & Chem 7: 07/10/21 05:40 07/10/21 05:40 Labs: Abnormal Lab Results - Last 24 Hours (Table) 07/09/21 07/10/21 07/10/21 Range/Units 04:50 05:40 05:40 RBC 3.34 L (3.80-5.40) m/uL Hgb 8.7 L (11.4-16.0) gm/dL Hct 28.9 L (34.0-46.0) % MCHC 29.9 L (31.0-37.0) g/dL RDW 16.4 H (11.5-15.5) % Lymphocytes # 0.3 L (1.0-4.8) k/uL Potassium 3.2 L (3.5-5.1) mmol/L Chloride 97 L (98-107) mmol/L Carbon Dioxide 38 H (22-30) mmol/L BUN 47 H (7-17) mg/dL Creatinine 1.79 H (0.52-1.04) mg/dL Glucose 130 H (74-99) mg/dL Iron 18 L (50-170) ug/dL % Saturation 5.19 L (12.00-45.00) Assessment and Plan Assessment: 1. Bilateral hydronephrosis with an elevated creatinine of 1.96 on admission slightly improved to 1.7 and this morning. 2. Chronic kidney disease Baseline creatinine available is from 04/09/2019 and was 1.16 but prior to that it had been going up and down up to 2.5. 3. Moderate pulmonary hypertension based on echocardiogram 07/08/1981, [id number] valvular disease ejection fraction is 55% 4. Pneumonia by x-ray 5. Hypokalemia secondary to diuretics 6. Anemia of chronic disease chronic kidney disease Recommendation 1. Check bladder scan and insert Radford catheter if more than 200 mL of urine in the bladder 2. Check iron saturation 3. Replace potassium she will need about 60 mEq. 4. Urology consult
[2021-07-10] MEDS: POTASSIUM CHLORIDE ER 10 MEQ TAB.ER.PRT PO SCH (12:59)
--- NOTE | 2021-07-10 18:53 | P.PN ---
Progress Note - Text Progress Note Date: 07/10/21 Chief Complaint: Abnormal labs Hospital course: This is a 86-year-old patient of Dr. Beth from visiting physician. Chronic stable medical conditions include chronic kidney disease stage III, COPD, hypertension, hyperlipidemia, persistent atrial fibrillation, secondary pulmonary hypertension, moderate tricuspid regurgitation. Patient not a very good historian.. Sent in with a note from her family doctor Dr. Beth stating that her current conditions include worsening renal function, low potassium and low magnesium hydronephrosis abdominal distention lower extremity edema. Patient'sappetite is fair. Not much change in her shortness of breath. She does have oxygen at home. No change in bowel movements. Does have pain in the joints. Edema has been worsening. Denies any fever and chills Admitted with acute on chronic congestive heart exacerbation. Started on IV Lasix drip. July 09: Pain on Lasix drip. Good urine output. Output was not measured correctly. Oral intake fair. Abdominal ultrasound shows bilateral hydronephrosis. Nephrology consulted. VQ scan ordered to rule out chronic PE: Patient is unable to complete examination. Abdominal ultrasound: Showing ascites, no DVT reported.. July 10: Patient on Lasix drip. More accurate measurement. About 1400 mL negative fluid balance. Breathing better. Eating fair. Edema started to go down. Decreased abdominal distention. Review of systems: Was done for constitutional, cardiovascular, GI, pulmonary. relevant finding as above Active Medications Acetaminophen (Acetaminophen Tab 325 Mg Tab) 650 mg PO Q6HR PRN PRN Reason: Mild Pain or Fever > 100.5 Acetaminophen (Acetaminophen Tab 325 Mg Tab) 650 mg PO BID@00,1999 [facility] Last Admin: 07/10/21 11:29 Dose: Not Given Documented by: Apixaban (Apixaban 5 Mg Tab) 5 mg PO BID@799,1999 [facility]; Protocol Last Admin: 07/10/21 09:41 Dose: 5 mg Documented by: Atorvastatin Calcium (Atorvastatin 10 Mg Tab) 10 mg PO DAILY@0800 [facility] Last Admin: 07/10/21 11:29 Dose: Not Given Documented by: Bisacodyl (Bisacodyl 10 Mg Supp) 10 mg RECTAL DAILY PRN PRN Reason: Constipation Budesonide/Formoterol Fumarate (Symbicort 80-4.5 Mcg Inhaler) 2 puff INHALATION RT-BID [facility] Last Admin: 07/10/21 08:08 Dose: 2 puff Documented by: Calcium Carbonate (Calcium Carb-Vit D 500 Mg-5 Mcg Tab) 1 each PO BID@08,1999 [facility] Last Admin: 07/10/21 11:29 Dose: Not Given Documented by: Carbamide Perox/Anhydrous Glycerin (Carbamide Peroxide 6.5% Drops 15 Ml Btl) 5 drops BOTH EARS BID [facility] Last Admin: 07/10/21 09:43 Dose: 5 drops Documented by: Cholecalciferol (Cholecalciferol 25 Mcg (1000 Iu) Tablet) 50 mcg PO DAILY@08 [facility] Last Admin: 07/10/21 11:30 Dose: Not Given Documented by: Cyanocobalamin (Cyanocobalamin 500 Mcg Tab) 1,000 mcg PO DAILY@08 [facility] Last Admin: 07/10/21 11:30 Dose: Not Given Documented by: Diphenoxylate HCl/Atropine (Diphenox-Atrop 2.5-0.025 Mg 1 Each Tab) 1 each PO Q4H PRN PRN Reason: Diarrhea Ferrous Sulfate (Ferrous Sulfate 325 Mg Tab) 325 mg PO DAILY@08 [facility] Last Admin: 07/10/21 11:30 Dose: Not Given Documented by: Fluticasone Propionate (Fluticasone 50mcg/[place] Nasal 16gm) 1 spray EA NOSTRIL DAILY [facility] Last Admin: 07/10/21 09:43 Dose: 1 spray Documented by: Gabapentin (Gabapentin 300 Mg Cap) 300 mg PO HS [facility] Last Admin: 07/09/21 20:51 Dose: 300 mg Documented by: Guaifenesin/Dextromethorphan (Guaifenesin-Dm 100-10mg/5ml 10 Ml Cup) 5 ml PO QID PRN PRN Reason: Cough Hydrocortisone Acetate (Hydrocortisone Suppository 25 Mg Supp) 25 mg RECTAL Q12H PRN PRN Reason: Hemorrhoids Furosemide 100 mg/ Sodium (Chloride) 100 mls @ 10 mls/hr IV .Q10H [facility] Last Admin: 07/10/21 06:11 Dose: 10 mg/hr, 10 mls/hr Documented by: Loratadine (Loratadine 10 Mg Tab) 10 mg PO DAILY@0800 [facility] Last Admin: 07/10/21 11:30 Dose: Not Given Documented by: Metoprolol Tartrate (Metoprolol Tartrate 25 Mg Tab) 25 mg PO BID@ [facility] Last Admin: 07/10/21 09:40 Dose: 25 mg Documented by: Multivitamins (Multivitamins, Thera 1 Each Tab) 1 each PO DAILY@08 [facility] Last Admin: 07/10/21 11:30 Dose: Not Given Documented by: Naloxone HCl (Naloxone 0.4 Mg/Ml 1 Ml Vial) 0.2 mg IV Q2M PRN PRN Reason: Opioid Reversal Non-Formulary Medication (Roflumilast [Daliresp]) 250 mcg PO DAILY@08 [facility] Last Admin: 07/10/21 11:31 Dose: Not Given Documented by: Non-Formulary Medication (Menthol [Biofreeze]) 1 applic TOPICAL QID PRN PRN Reason: Pain Olanzapine (Olanzapine Odt 10 Mg Tab) 20 mg PO HS@1999 [facility] Last Admin: 07/09/21 20:51 Dose: 20 mg Documented by: Pantoprazole Sodium (Pantoprazole 40 Mg Tablet) 40 mg PO DAILY@729 [facility] Last Admin: 07/10/21 11:29 Dose: Not Given Documented by: Polyethylene Glycol (Polyethylene Glycol 3350 17 Gm Powd.Pack) 17 gm PO DAILY@799 [facility] Last Admin: 07/10/21 11:30 Dose: Not Given Documented by: Potassium Chloride (Potassium Chloride Er 10 Meq Tab.Er.Prt) 10 meq PO DAILY [facility] Last Admin: 07/10/21 12:59 Dose: 10 meq Documented by: Promethazine HCl (Promethazine 25 Mg Tab) 12.5 mg PO Q12H PRN PRN Reason: Nausea Last Admin: 07/09/21 11:21 Dose: 12.5 mg Documented by: Psyllium Hydrophilic Mucilloid (Psyllium Husk 100% 6 Gm Packet) 6 gm PO DAILY [facility] Last Admin: 07/10/21 11:31 Dose: Not Given Documented by: Senna/Docusate Sodium (Sennosides-Docusate Sodium 1 Each Tab) 1 each PO DAILY@08 [facility] Last Admin: 07/10/21 11:31 Dose: Not Given Documented by: Tramadol HCl (Tramadol 50 Mg Tab) 50 mg PO TID PRN PRN Reason: Pain Past medical history: To include Chronic kidney disease stage III, COPD, hypertension, hyperlipidemia, persistent atrial fibrillation, secondary probably hypertension, moderate tricuspid regurgitation,: Breast cancer followed by bilateral mastectomy, stroke, small bowel obstruction Schizophrenia Social history: Lives at [facility] apartment. Patient smoked for approximately 30 years stopped around age of 51. No alcohol. Does use a cane. Family history: Patient does not remember Physical examination: VITAL SIGNS: 98, 87, 18, 102/62, 96% on 2 L GENERAL: Reclining in bed, awake, EYES: Pupils equal. Conjunctiva normal. HEENT: External appearance of nose and ears normal, oral cavity grossly normal. NECK: JVD not raised; masses not palpable. HEART: First and second heart sounds are normal; edema improving LUNGS: Respiratory rate normal, diminished breath sound ABDOMEN: Soft, less distended nontender, liver spleen not palpable, no masses palpable. PSYCH: Patient able to answer some simple questions. Otherwise forgetfull. MUSCULOSKELETAL: Evidence of OA especially in the hands INVESTIGATIONS, reviewed in the clinical context: July 10: White count 7.5 hemoglobin 8.7 potassium 3.2 BUN 47 creatinine 1.79 Computed tomography scan abdomen and pelvis: Heart is enlarged, anasarca, left pleural effusion, bibasilar atelectasis, bilateral hydronephrosis, abnormal soft tissue in the pelvis. Thickened bladder wall is indeterminate. Ascites. July 09: Potassium 3.2 BUN 41.2 creatinine 1.9. Iron 18% saturation 5.19 2-D echocardiogram: EF 50-55%. Right ventricle normal in size. [id number] mitral and tricuspid regurgitation. Moderate pulmonary hypertension VQ scan: Not completed as patient is not able to do the same Abdominal ultrasound: Ascites. Pleural effusion. No DVT reported. Gallstone. Thickened wall. Right kidney moderate hydronephrosis. Renal ultrasound: Moderate bilateral hydronephrosis. No evidence of renal mass. Urinary bladder not visualized. White count 6.6 hemoglobin 9.3 platelets 378 potassium 2.9 BUN 47 creatinine 1.96 albumin 2.7 Influenza type A, diabetes, RSV, COVID 19 [PCR]: Not detected EKG tracing personally reviewed by me-atrial fibrillation, rate 74 Previous labs: BUN 42 creatinine 1.16 from 2019 Assessment and plan: -Possible acute on chronic congestive heart failure exacerbation from diastolic dysfunction EF 55: Slow to respond Continue Lasix drip.. Strict I's and O's. -Possible acute kidney injury from cardiorenal syndrome: Prerenal Lasix drip. Follow with nephrology -Bilateral moderate hydronephrosis. Urology consulted -Patient has ascites, pleural effusion, low albumin. Abnormal soft tissue in the pelvis. Cause unclear. We will check tumor markers including CEA, alpha-fetoprotein,CA 19-9. We will also check transvaginal ultrasound for the soft tissue mass. -Tracheobronchomalacia -Chronic kidney disease stage III probably from nephrosclerosis Follow renal function -GERD Prilosec 20 mg twice a day - COPD in ex-smoker Pulmicort 0.5 mg twice a day. Advair 1 puff twice a day -Essential hypertension with chronic kidney disease Lopressor 25 mg twice a day -Hyperlipidemia Zocor 20 mg daily at bedtime -Persistent atrial fibrillation rate control Eliquis 5 mg twice a day he did Lopressor 25 mg twice a day -Secondary moderate pulmonary hypertension, possible cor pulmonale Lasix drip -Moderate tricuspid regurgitation Follow clinically -Moderate cognitive impairment, likely from Alzheimer's dementia -Chronic gait dysfunction baseline uses a cane Fall precautions Continue Lasix drip at 10 mg an hour. Will check tumor markers to include CEA, AFP, CA 19-9. Also do a transvaginal ultrasound to evaluate soft tissue mass in the pelvis. I will also requested to reviewed the 2-D echocardiogram in view of possible diagnoses of right heart failure.
[2021-07-10] MEDS: OLANZapine ODT 10 MG TAB PO SCH (22:22)
[2021-07-10] MEDS: GABAPENTIN 300 MG CAP PO SCH (22:24)
[2021-07-11 04:18] LABS: ALT 10 U/L (4-34); AST 25 U/L (14-36); African American GFR (CKD) 31 (>60 ml/min/1.73 sqM); Albumin 2.3 g/dL (3.5-5.0); Alkaline Phosphatase 56 U/L (38-126); Anion Gap 2 mmol/L; Blood Urea Nitrogen 50 mg/dL (7-17); Calcium 9.1 mg/dL (8.4-10.2); Carbon Dioxide 36 mmol/L (22-30); Chloride 99 mmol/L (98-107); Globulin 2.2 g/dL; Glucose 103 mg/dL (74-99); Non-African American GFR(CKD) 27 (>60 ml/min/1.73 sqM); Potassium 3.2 mmol/L (3.5-5.1); Sodium 137 mmol/L (137-145); Total Bilirubin 0.4 mg/dL (0.2-1.3); Total Protein 4.5 g/dL (6.3-8.2)
[2021-07-11] MEDS: FUROSEMIDE 100 MG in SODIUM CHLORIDE 0.9% 90 ML IV SCH ×2 (04:42→14:49)
[2021-07-11] MEDS: SYMBICORT 80-4.5 MCG INHALER INHALATION SCH ×2 (08:01→19:50)
[2021-07-11] MEDS: ACETAMINOPHEN TAB 325 MG TAB PO SCH ×2 (09:06→20:54)
[2021-07-11] MEDS: APIXABAN 5 MG TAB PO SCH ×2 (09:06→20:53)
[2021-07-11] MEDS: POTASSIUM CHLORIDE ER 10 MEQ TAB.ER.PRT PO SCH (09:06)
[2021-07-11] MEDS: CALCIUM CARB-VIT D 500 MG-5 MCG TAB PO SCH ×2 (09:08→20:53)
[2021-07-11] MEDS: CHOLECALCIFEROL 25 MCG (1000 IU) TABLET PO SCH (09:08)
[2021-07-11] MEDS: PANTOPRAZOLE 40 MG TABLET PO SCH (09:08)
[2021-07-11] MEDS: ATORVASTATIN 10 MG TAB PO SCH (09:08)
[2021-07-11] MEDS: PSYLLIUM HUSK 100% 6 GM PACKET PO SCH (09:09)
[2021-07-11] MEDS: CYANOCOBALAMIN 500 MCG TAB PO SCH (09:09)
[2021-07-11] MEDS: SENNOSIDES-DOCUSATE SODIUM 1 EACH TAB PO SCH (09:09)
[2021-07-11] MEDS: polyethylene glycoL 3350 17 GM POWD.PACK PO SCH (09:09)
[2021-07-11] MEDS: FLUTICASONE 50MCG/SPRAY NASAL 16GM EA NOSTRIL SCH (09:10)
[2021-07-11] MEDS: CARBAMIDE PEROXIDE 6.5% DROPS 15 ML BTL BOTH EARS SCH ×2 (09:10→20:54)
[2021-07-11] MEDS: MULTIVITAMINS, THERA 1 EACH TAB PO SCH (09:10)
[2021-07-11] MEDS: FERROUS SULFATE 325 MG TAB PO SCH (09:18)
[2021-07-11] MEDS: METOPROLOL TARTRATE 25 MG TAB PO SCH ×2 (09:18→20:54)
[2021-07-11] MEDS: LORATADINE 10 MG TAB PO SCH (09:18)
[2021-07-11] MEDS: ROFLUMILAST 250 MCG PO SCH (09:21)
--- NOTE | 2021-07-11 09:21 | US ---
EXAMINATION TYPE: US pelvic complete DATE OF EXAM: 07/11/2021 COMPARISON: CT pelvis 07/10/2021 CLINICAL HISTORY: Soft tissue pelvic mass. TECHNIQUE: Transabdominal (TA). Date of LMP: Postmenopausal patient EXAM MEASUREMENTS: Uterus: 5.1 x 2.3 x 2.9 cm Endometrial Stripe: 0.3 cm Right Ovary: Obscured by overlying bowel gas/ascites/?atrophy Left Ovary: Obscured by overlying bowel gas/ascites/?atrophy 86 year old patient unable to lay back for exam. Extensive ascites in pelvis with overlying bowel gas . Exam very limited and technically difficult. 1. Uterus: wnl, as seen, limited views 2. Endometrium: wnl, as seen, limited views 3. Right Ovary: Obscured by overlying bowel gas/ascites/?atrophy 4. Left Ovary: Obscured by overlying bowel gas/ascites/?atrophy 5. Bilateral Adnexa: ascites with internal echoes 6. Posterior cul-de-sac: wnl Due to 's order saying soft tissue pelvic mass, technologist did superficial scan of pelvic area, no palpable or obvious area of swelling seen. Ultrasound only detects fluid in pelvis with superficia l scan. IMPRESSION: Limited exam secondary to patient body habitus. 1. No evidence of soft tissue mass. 2. ascites. 3. Nonvisualization of the ovaries
[2021-07-11 11:06] LABS: Alpha Fetoprotein, Tumor Mkr 3.4 ng/mL (0.00-7.90); Carcinoembryonic Antigen 2.2 ng/mL (0.0-4.9)
--- NOTE | 2021-07-11 12:03 | P.PN ---
Progress Note - Text Progress Note Date: 07/11/21 The patient is a vague historian. Her urine output as been good. Her creatinine level has decreased to 1.[address] scan showed motion artifact, but there was evidence of bilateral hydronephrosis, ascites, and a possible soft tissue pelvic mass. Ultrasound of the pelvis revealed no mass. If she is to undergo further evaluation of the hydronephrosis, it would consist of cystoscopy, bilateral retrograde pyelograms, possible ureteral stent insertion. I discussed this with the patient and advised her to consider this.
--- NOTE | 2021-07-11 13:14 | P.PN ---
Subjective Progress Note Date: 07/11/21 Principal diagnosis: Patient is a 86-year-old female seen in consultation for acute kidney injury on chronic kidney disease. She was admitted to the hospital because of worsening creatinine, on workup she was found to have bilateral hydronephrosis. Both Computed Tomography Scan and Ultrasound Confirmed it, the Cause of the Obstruction Is Not Clear, and has a external [place] and her creatinine is improving Complain of some itching on the right leg otherwise no complaints good appetite no nausea vomiting no abdominal pain no fever chills. Patient's creatinine in March 2019 was as low as 1.16. This admission was elevated at 1.96. Patient does have history of diastolic CHF with moderate to severe mitral regurgitation and severe pulmonary hypertension. Objective - Vital Signs Vital signs: Vital Signs Temp 97.5 F L 07/11/21 12:28 Pulse 80 07/11/21 12:28 Resp 17 07/11/21 12:28 BP 91/52 07/11/21 12:28 Pulse Ox 99 07/11/21 12:28 Intake & Output 07/10/21 07/11/21 07/11/21 18:59 06:59 18:59 Intake Total 580 774.5 Output Total 600 600 Balance -20 174.5 Intake: Intake, IV Titration 100 94.5 Amount Furosemide 100 mg In 100 94.5 Sodium Chloride 0.9% 90 ml @ 10 MG/HR 10 mls/hr IV .Q10H [facility] Rx#: [id number] Oral 480 680 Output: Urine 600 600 Other: Voiding Method Diaper Diaper Incontinent Incontinent External Catheter # Voids 2 On examination he is awake alert and oriented A chin exam no JVP neck is supple no facial asymmetry Lungs clear to auscultation good air entry bilaterally Heart sounds unremarkable for any murmur rub gallop Abdomen soft nontender no suprapubic tenderness or distention Extremity exam reveals minimal edema which has improved Neurologically awake alert oriented but poor historian - Labs CBC & Chem 7: 07/10/21 05:40 07/11/21 03:40 Labs: Abnormal Lab Results - Last 24 Hours (Table) 07/11/21 Range/Units 03:40 Potassium 3.2 L (3.5-5.1) mmol/L Carbon Dioxide 36 H (22-30) mmol/L BUN 50 H (7-17) mg/dL Creatinine 1.71 H (0.52-1.04) mg/dL Glucose 103 H (74-99) mg/dL Total Protein 4.5 L (6.3-8.2) g/dL Albumin 2.3 L (3.5-5.0) g/dL Assessment and Plan Assessment: 1. Bilateral hydronephrosis with an elevated creatinine of 1.96 on admission slightly improved to 1.7, today. Bladder scan did not show any retention with the external Rad[place] 2. Chronic kidney disease Baseline creatinine available is from 04/09/2019 and was 1.16 but prior to that it had been going up and down up to 2.5. 3. Moderate pulmonary hypertension based on echocardiogram 07/08/1981, mild-to- moderate valvular disease ejection fraction is 55% 4. Pneumonia by x-ray 5. Hypokalemia secondary to diuretics 6. Anemia of chronic disease chronic kidney disease, hemoglobin is 8.7 down from 13.6 on 04/02/2021 and on admission was 9.3 7. Iron deficiency saturation is 5% dated 07/09/2021 Recommendation 1. IV Ferrlecit 125 mg 1 dose. 2. Replace KCl extremity milliequivalents total, 20 mg every hour for 3 doses 3. Patient can be discharged from nephrological perspective
[2021-07-11] MEDS ORDERED: SODIUM FERRIC GLUCONAT-SUCROSE 125 MG in SODIUM CHLORIDE 0.9% 100 ML IVPB ONE (14:00)
--- NOTE | 2021-07-11 14:07 | P.PN ---
Progress Note - Text Progress Note Date: 07/11/21 Chief Complaint: Abnormal labs Hospital course: This is a 86-year-old patient of Dr. Beth from visiting physician. Chronic stable medical conditions include chronic kidney disease stage III, COPD, hypertension, hyperlipidemia, persistent atrial fibrillation, secondary pulmonary hypertension, moderate tricuspid regurgitation. Patient not a very good historian.. Sent in with a note from her family doctor Dr. Beth stating that her current conditions include worsening renal function, low potassium and low magnesium hydronephrosis abdominal distention lower extremity edema. Patient'sappetite is fair. Not much change in her shortness of breath. She does have oxygen at home. No change in bowel movements. Does have pain in the joints. Edema has been worsening. Denies any fever and chills Admitted with acute on chronic congestive heart exacerbation. Started on IV Lasix drip. July 09: Pain on Lasix drip. Good urine output. Output was not measured correctly. Oral intake fair. Abdominal ultrasound shows bilateral hydronephrosis. Nephrology consulted. VQ scan ordered to rule out chronic PE: Patient is unable to complete examination. Abdominal ultrasound: Showing ascites, no DVT reported.. July 10: Patient on Lasix drip. More accurate measurement. About 1400 mL negative fluid balance. Breathing better. Eating fair. Edema started to go down. Decreased abdominal distention. July 11: Patient remains a Lasix drip. Edema coming down. Breathing better. I had Dr. Wall from cardiology reviewed the 2-D echocardiogram again. He did confirm that the right ventricle was significantly dilated and there was significant pulmonary hypertension. Hence patient does have cor pulmonale. Add Diamox. Review of systems: Was done for constitutional, cardiovascular, GI, pulmonary. relevant finding as above Active Medications Acetaminophen (Acetaminophen Tab 325 Mg Tab) 650 mg PO Q6HR PRN PRN Reason: Mild Pain or Fever > 100.5 Acetaminophen (Acetaminophen Tab 325 Mg Tab) 650 mg PO BID@799,1999 [facility] Last Admin: 07/11/21 09:06 Dose: 650 mg Documented by: Acetazolamide (Acetazolamide 250 Mg Tab) 250 mg PO BID [facility] Apixaban (Apixaban 5 Mg Tab) 5 mg PO BID@799,1999 [facility]; Protocol Last Admin: 07/11/21 09:06 Dose: 5 mg Documented by: Atorvastatin Calcium (Atorvastatin 10 Mg Tab) 10 mg PO DAILY@0800 [facility] Last Admin: 07/11/21 09:08 Dose: 10 mg Documented by: Bisacodyl (Bisacodyl 10 Mg Supp) 10 mg RECTAL DAILY PRN PRN Reason: Constipation Budesonide/Formoterol Fumarate (Symbicort 80-4.5 Mcg Inhaler) 2 puff INHALATION RT-BID [facility] Last Admin: 07/11/21 08:01 Dose: 2 puff Documented by: Calcium Carbonate (Calcium Carb-Vit D 500 Mg-5 Mcg Tab) 1 each PO BID@0800,1999 [facility] Last Admin: 07/11/21 09:08 Dose: 1 each Documented by: Carbamide Perox/Anhydrous Glycerin (Carbamide Peroxide 6.5% Drops 15 Ml Btl) 5 drops BOTH EARS BID [facility] Last Admin: 07/11/21 09:10 Dose: 5 drops Documented by: Cholecalciferol (Cholecalciferol 25 Mcg (1000 Iu) Tablet) 50 mcg PO DAILY@0800 [facility] Last Admin: 07/11/21 09:08 Dose: 50 mcg Documented by: Cyanocobalamin (Cyanocobalamin 500 Mcg Tab) 1,000 mcg PO DAILY@0800 [facility] Last Admin: 07/11/21 09:09 Dose: 1,000 mcg Documented by: Diphenoxylate HCl/Atropine (Diphenox-Atrop 2.5-0.025 Mg 1 Each Tab) 1 each PO Q4H PRN PRN Reason: Diarrhea Ferrous Sulfate (Ferrous Sulfate 325 Mg Tab) 325 mg PO DAILY@0800 [facility] Last Admin: 07/11/21 09:18 Dose: 325 mg Documented by: Fluticasone Propionate (Fluticasone 50mcg/[place] Nasal 16gm) 1 spray EA NOSTRIL DAILY [facility] Last Admin: 07/11/21 09:10 Dose: 1 spray Documented by: Gabapentin (Gabapentin 300 Mg Cap) 300 mg PO HS [facility] Last Admin: 07/10/21 22:24 Dose: 300 mg Documented by: Guaifenesin/Dextromethorphan (Guaifenesin-Dm 100-10mg/5ml 10 Ml Cup) 5 ml PO QID PRN PRN Reason: Cough Hydrocortisone Acetate (Hydrocortisone Suppository 25 Mg Supp) 25 mg RECTAL Q12H PRN PRN Reason: Hemorrhoids Furosemide 100 mg/ Sodium (Chloride) 100 mls @ 10 mls/hr IV .Q10H [facility] Last Admin: 07/11/21 04:42 Dose: 10 mg/hr, 10 mls/hr Documented by: Ferric Sodium Gluconate 125 mg (/ Sodium Chloride) 110 mls @ 100 mls/hr IVPB ONCE ONE Stop: 07/11/21 15:05 Loratadine (Loratadine 10 Mg Tab) 10 mg PO DAILY@0800 [facility] Last Admin: 07/11/21 09:18 Dose: 10 mg Documented by: Metoprolol Tartrate (Metoprolol Tartrate 25 Mg Tab) 25 mg PO BID@ [facility] Last Admin: 07/11/21 09:18 Dose: 25 mg Documented by: Multivitamins (Multivitamins, Thera 1 Each Tab) 1 each PO DAILY@0800 [facility] Last Admin: 07/11/21 09:10 Dose: 1 each Documented by: Naloxone HCl (Naloxone 0.4 Mg/Ml 1 Ml Vial) 0.2 mg IV Q2M PRN PRN Reason: Opioid Reversal Non-Formulary Medication (Roflumilast [Daliresp]) 250 mcg PO DAILY@0800 [facility] Last Admin: 07/11/21 09:21 Dose: Not Given Documented by: Non-Formulary Medication (Menthol [Biofreeze]) 1 applic TOPICAL QID PRN PRN Reason: Pain Olanzapine (Olanzapine Odt 10 Mg Tab) 20 mg PO HS@1999 [facility] Last Admin: 07/10/21 22:22 Dose: 20 mg Documented by: Pantoprazole Sodium (Pantoprazole 40 Mg Tablet) 40 mg PO DAILY@0730 [facility] Last Admin: 07/11/21 09:08 Dose: 40 mg Documented by: Polyethylene Glycol (Polyethylene Glycol 3350 17 Gm Powd.Pack) 17 gm PO DAILY@ 0800 [facility] Last Admin: 07/11/21 09:09 Dose: 17 gm Documented by: Potassium Chloride (Potassium Chloride Er 10 Meq Tab.Er.Prt) 10 meq PO DAILY [facility] Last Admin: 07/11/21 09:06 Dose: 10 meq Documented by: Promethazine HCl (Promethazine 25 Mg Tab) 12.5 mg PO Q12H PRN PRN Reason: Nausea Last Admin: 07/09/21 11:21 Dose: 12.5 mg Documented by: Psyllium Hydrophilic Mucilloid (Psyllium Husk 100% 6 Gm Packet) 6 gm PO DAILY [facility] Last Admin: 07/11/21 09:09 Dose: 6 gm Documented by: Senna/Docusate Sodium (Sennosides-Docusate Sodium 1 Each Tab) 1 each PO DAILY@0800 [facility] Last Admin: 07/11/21 09:09 Dose: 1 each Documented by: Tramadol HCl (Tramadol 50 Mg Tab) 50 mg PO TID PRN PRN Reason: Pain Past medical history: To include Chronic kidney disease stage III, COPD, hypertension, hyperlipidemia, persistent atrial fibrillation, secondary probably hypertension, moderate tricuspid regurgitation,: Breast cancer followed by bilateral mastectomy, stroke, small bowel obstruction Schizophrenia Social history: Lives at [facility] apartment. Patient smoked for approximately 30 years stopped around age of 51. No alcohol. Does use a cane. Family history: Patient does not remember Physical examination: VITAL SIGNS: 97.5, 80, 17, 91/52, 99% on 2 L GENERAL: Reclining in bed, awake, EYES: Pupils equal. Conjunctiva normal. HEENT: External appearance of nose and ears normal, oral cavity grossly normal. NECK: JVD not raised; masses not palpable. HEART: First and second heart sounds are normal; edema decreased LUNGS: Respiratory rate normal, diminished breath sound ABDOMEN: Soft, less distended nontender, liver spleen not palpable, no masses palpable. PSYCH:able to answer some simple questions. Otherwise forgetfull. MUSCULOSKELETAL: Evidence of OA especially in the hands INVESTIGATIONS, reviewed in the clinical context: July 11: Potassium 3.2 BUN 50 creatinine 1.71 bicarb 36 July 10: White count 7.5 hemoglobin 8.7 potassium 3.2 BUN 47 creatinine 1.79 Computed tomography scan abdomen and pelvis: Heart is enlarged, anasarca, left pleural effusion, bibasilar atelectasis, bilateral hydronephrosis, abnormal soft tissue in the pelvis. Thickened bladder wall is indeterminate. Ascites. July 09: Potassium 3.2 BUN 41.2 creatinine 1.9. Iron 18% saturation 5.19 2-D echocardiogram: EF 50-55%. Right ventricle normal in size. [id number] e mitral and tricuspid regurgitation. Moderate pulmonary hypertension VQ scan: Not completed as patient is not able to do the same Abdominal ultrasound: Ascites. Pleural effusion. No DVT reported. Gallstone. Thickened wall. Right kidney moderate hydronephrosis. Renal ultrasound: Moderate bilateral hydronephrosis. No evidence of renal mass. Urinary bladder not visualized. White count 6.6 hemoglobin 9.3 platelets 378 potassium 2.9 BUN 47 creatinine 1.96 albumin 2.7 Influenza type A, diabetes, RSV, COVID 19 [PCR]: Not detected EKG tracing personally reviewed by me-atrial fibrillation, rate 74 Previous labs: BUN 42 creatinine 1.16 from 2019 Assessment and plan: - acute on chronic congestive heart failure exacerbation from diastolic dysfunction EF 55: Improving Continue Lasix drip.. Strict I's and O's. -Acute on chronic cor pulmonale exacerbation Responded well to Lasix drip -Possible acute kidney injury from cardiorenal syndrome: Prerenal Lasix drip. Follow with nephrology -Bilateral moderate hydronephrosis. Follow-up with urology -Patient has ascites, pleural effusion, low albumin. Abnormal soft tissue in the pelvis. Cause unclear. We will check tumor markers including CEA, alpha-fetoprotein,CA 19-9. Transvaginal ultrasound: Nonspecific -Tracheobronchomalacia -Chronic kidney disease stage III probably from nephrosclerosis Follow renal function -GERD Prilosec 20 mg twice a day - COPD in ex-smoker Pulmicort 0.5 mg twice a day. Advair 1 puff twice a day -Essential hypertension with chronic kidney disease Lopressor 25 mg twice a day -Hyperlipidemia Zocor 20 mg daily at bedtime -Persistent atrial fibrillation rate control Eliquis 5 mg twice a day he did Lopressor 25 mg twice a day -Secondary moderate pulmonary hypertension, possible cor pulmonale Lasix drip -Moderate tricuspid regurgitation Follow clinically -Moderate cognitive impairment, likely from Alzheimer's dementia -Chronic gait dysfunction baseline uses a cane Fall precautions DC Lasix drip today. We'll continue with fluid restriction and oral Lasix. 80 mg twice a day. Further input per urology. Total time spent today about 40 minutes with over 20 minutes of discussion.
[2021-07-11] MEDS: acetaZOLAMIDE 250 MG TAB PO SCH ×2 (15:30→21:16)
[2021-07-11] MEDS: GABAPENTIN 100 MG CAP PO SCH (20:53)
[2021-07-11] MEDS: OLANZapine ODT 10 MG TAB PO SCH (20:54)
[2021-07-12 07:05] LABS: African American GFR (CKD) 27 (>60 ml/min/1.73 sqM); Anion Gap 4 mmol/L; Blood Urea Nitrogen 43 mg/dL (7-17); Calcium 8.7 mg/dL (8.4-10.2); Carbon Dioxide 37 mmol/L (22-30); Chloride 98 mmol/L (98-107); Glucose 89 mg/dL (74-99); Non-African American GFR(CKD) 23 (>60 ml/min/1.73 sqM); Potassium 2.9 mmol/L (3.5-5.1); Sodium 139 mmol/L (137-145)
[2021-07-12] MEDS: polyethylene glycoL 3350 17 GM POWD.PACK PO SCH (08:39)
[2021-07-12] MEDS: acetaZOLAMIDE 250 MG TAB PO SCH ×2 (08:39→20:46)
[2021-07-12] MEDS: PSYLLIUM HUSK 100% 6 GM PACKET PO SCH (08:39)
[2021-07-12] MEDS: ATORVASTATIN 10 MG TAB PO SCH (08:40)
[2021-07-12] MEDS: METOPROLOL TARTRATE 25 MG TAB PO SCH ×2 (08:40→20:45)
[2021-07-12] MEDS: CHOLECALCIFEROL 25 MCG (1000 IU) TABLET PO SCH (08:40)
[2021-07-12] MEDS: LORATADINE 10 MG TAB PO SCH (08:40)
[2021-07-12] MEDS: FERROUS SULFATE 325 MG TAB PO SCH (08:40)
[2021-07-12] MEDS: FUROSEMIDE 80 MG TAB PO SCH ×2 (08:40→16:06)
[2021-07-12] MEDS: POTASSIUM CHLORIDE ER 10 MEQ TAB.ER.PRT PO SCH (08:40)
[2021-07-12] MEDS: MULTIVITAMINS, THERA 1 EACH TAB PO SCH (08:40)
[2021-07-12] MEDS: APIXABAN 5 MG TAB PO SCH ×2 (08:40→20:46)
[2021-07-12] MEDS: PANTOPRAZOLE 40 MG TABLET PO SCH (08:40)
[2021-07-12] MEDS: CYANOCOBALAMIN 500 MCG TAB PO SCH (08:40)
[2021-07-12] MEDS: SENNOSIDES-DOCUSATE SODIUM 1 EACH TAB PO SCH (08:40)
[2021-07-12] MEDS: ACETAMINOPHEN TAB 325 MG TAB PO SCH ×2 (08:40→20:46)
[2021-07-12] MEDS: CALCIUM CARB-VIT D 500 MG-5 MCG TAB PO SCH ×2 (08:40→20:45)
[2021-07-12] MEDS: ROFLUMILAST 250 MCG PO SCH (08:49)
[2021-07-12] MEDS: CARBAMIDE PEROXIDE 6.5% DROPS 15 ML BTL BOTH EARS SCH ×2 (08:49→20:47)
[2021-07-12] MEDS: FLUTICASONE 50MCG/SPRAY NASAL 16GM EA NOSTRIL SCH (08:50)
[2021-07-12] MEDS: SYMBICORT 80-4.5 MCG INHALER INHALATION SCH ×2 (08:57→19:54)
[2021-07-12] MEDS: POTASSIUM CHLORIDE ER 20 MEQ TAB.ER PO SCH ×3 (12:24→20:45)
--- NOTE | 2021-07-12 15:33 | P.PN ---
Progress Note - Text Progress Note Date: 07/12/21 Chief Complaint: Abnormal labs Hospital course: This is a 86-year-old patient of Dr. Beth from visiting physician. Chronic stable medical conditions include chronic kidney disease stage III, COPD, hypertension, hyperlipidemia, persistent atrial fibrillation, secondary pulmonary hypertension, moderate tricuspid regurgitation. Patient not a very good historian.. Sent in with a note from her family doctor Dr. Beth stating that her current conditions include worsening renal function, low potassium and low magnesium hydronephrosis abdominal distention lower extremity edema. Patient'sappetite is fair. Not much change in her shortness of breath. She does have oxygen at home. No change in bowel movements. Does have pain in the joints. Edema has been worsening. Denies any fever and chills Admitted with acute on chronic congestive heart exacerbation. Started on IV Lasix drip. July 09: Pain on Lasix drip. Good urine output. Output was not measured correctly. Oral intake fair. Abdominal ultrasound shows bilateral hydronephrosis. Nephrology consulted. VQ scan ordered to rule out chronic PE: Patient is unable to complete examination. Abdominal ultrasound: Showing ascites, no DVT reported.. July 10: Patient on Lasix drip. More accurate measurement. About 1400 mL negative fluid balance. Breathing better. Eating fair. Edema started to go down. Decreased abdominal distention. July 11: Patient remains a Lasix drip. Edema coming down. Breathing better. I had Dr. Wall from cardiology reviewed the 2-D echocardiogram again. He did confirm that the right ventricle was significantly dilated and there was significant pulmonary hypertension. Hence patient does have cor pulmonale. Add Diamox. July 12: Potassium 2.9. Replace. Oral intake fair. On by mouth Lasix. Fluid restriction. Review of systems: Was done for constitutional, cardiovascular, GI, pulmonary. relevant finding as above Active Medications Acetaminophen (Acetaminophen Tab 325 Mg Tab) 650 mg PO Q6HR PRN PRN Reason: Mild Pain or Fever > 100.5 Acetaminophen (Acetaminophen Tab 325 Mg Tab) 650 mg PO BID@0800,1999 [facility] Last Admin: 07/12/21 08:40 Dose: 650 mg Documented by: Acetazolamide (Acetazolamide 250 Mg Tab) 250 mg PO BID [facility] Last Admin: 07/12/21 08:39 Dose: 250 mg Documented by: Apixaban (Apixaban 5 Mg Tab) 5 mg PO BID@799,1999 [facility]; Protocol Last Admin: 07/12/21 08:40 Dose: 5 mg Documented by: Atorvastatin Calcium (Atorvastatin 10 Mg Tab) 10 mg PO DAILY@0800 [facility] Last Admin: 07/12/21 08:40 Dose: 10 mg Documented by: Bisacodyl (Bisacodyl 10 Mg Supp) 10 mg RECTAL DAILY PRN PRN Reason: Constipation Budesonide/Formoterol Fumarate (Symbicort 80-4.5 Mcg Inhaler) 2 puff INHALATION RT-BID [facility] Last Admin: 07/12/21 08:57 Dose: Not Given Documented by: Calcium Carbonate (Calcium Carb-Vit D 500 Mg-5 Mcg Tab) 1 each PO BID@ [facility] Last Admin: 07/12/21 08:40 Dose: 1 each Documented by: Carbamide Perox/Anhydrous Glycerin (Carbamide Peroxide 6.5% Drops 15 Ml Btl) 5 drops BOTH EARS BID [facility] Last Admin: 07/12/21 08:49 Dose: 5 drops Documented by: Cholecalciferol (Cholecalciferol 25 Mcg (1000 Iu) Tablet) 50 mcg PO DAILY@0800 [facility] Last Admin: 07/12/21 08:40 Dose: 50 mcg Documented by: Cyanocobalamin (Cyanocobalamin 500 Mcg Tab) 1,000 mcg PO DAILY@0800 [facility] Last Admin: 07/12/21 08:40 Dose: 1,000 mcg Documented by: Diphenoxylate HCl/Atropine (Diphenox-Atrop 2.5-0.025 Mg 1 Each Tab) 1 each PO Q4H PRN PRN Reason: Diarrhea Ferrous Sulfate (Ferrous Sulfate 325 Mg Tab) 325 mg PO DAILY@0800 [facility] Last Admin: 07/12/21 08:40 Dose: 325 mg Documented by: Fluticasone Propionate (Fluticasone 50mcg/[place] Nasal 16gm) 1 spray EA NOSTRIL DAILY [facility] Last Admin: 07/12/21 08:50 Dose: 1 spray Documented by: Furosemide (Furosemide 80 Mg Tab) 80 mg PO BID@0900,1600 [facility] Last Admin: 07/12/21 08:40 Dose: 80 mg Documented by: Gabapentin (Gabapentin 100 Mg Cap) 200 mg PO HS [facility] Last Admin: 07/11/21 20:53 Dose: 200 mg Documented by: Guaifenesin/Dextromethorphan (Guaifenesin-Dm 100-10mg/5ml 10 Ml Cup) 5 ml PO QID PRN PRN Reason: Cough Hydrocortisone Acetate (Hydrocortisone Suppository 25 Mg Supp) 25 mg RECTAL Q12H PRN PRN Reason: Hemorrhoids Loratadine (Loratadine 10 Mg Tab) 10 mg PO DAILY@0800 [facility] Last Admin: 07/12/21 08:40 Dose: 10 mg Documented by: Metoprolol Tartrate (Metoprolol Tartrate 25 Mg Tab) 25 mg PO BID@ [facility] Last Admin: 07/12/21 08:40 Dose: 25 mg Documented by: Multivitamins (Multivitamins, Thera 1 Each Tab) 1 each PO DAILY@08 [facility] Last Admin: 07/12/21 08:40 Dose: 1 each Documented by: Naloxone HCl (Naloxone 0.4 Mg/Ml 1 Ml Vial) 0.2 mg IV Q2M PRN PRN Reason: Opioid Reversal Non-Formulary Medication (Roflumilast [Daliresp]) 250 mcg PO DAILY@08 [facility] Last Admin: 07/12/21 08:49 Dose: Not Given Documented by: Non-Formulary Medication (Menthol [Biofreeze]) 1 applic TOPICAL QID PRN PRN Reason: Pain Olanzapine (Olanzapine Odt 10 Mg Tab) 20 mg PO HS@1999 [facility] Last Admin: 07/11/21 20:54 Dose: 20 mg Documented by: Pantoprazole Sodium (Pantoprazole 40 Mg Tablet) 40 mg PO DAILY@0730 [facility] Last Admin: 07/12/21 08:40 Dose: 40 mg Documented by: Polyethylene Glycol (Polyethylene Glycol 3350 17 Gm Powd.Pack) 17 gm PO DAILY@0800 [facility] Last Admin: 07/12/21 08:39 Dose: 17 gm Documented by: Potassium Chloride (Potassium Chloride Er 10 Meq Tab.Er.Prt) 10 meq PO DAILY [facility] Last Admin: 07/12/21 08:40 Dose: 10 meq Documented by: Promethazine HCl (Promethazine 25 Mg Tab) 12.5 mg PO Q12H PRN PRN Reason: Nausea Last Admin: 07/09/21 11:21 Dose: 12.5 mg Documented by: Psyllium Hydrophilic Mucilloid (Psyllium Husk 100% 6 Gm Packet) 6 gm PO DAILY [facility] Last Admin: 07/12/21 08:39 Dose: 6 gm Documented by: Senna/Docusate Sodium (Sennosides-Docusate Sodium 1 Each Tab) 1 each PO DAILY@0800 [facility] Last Admin: 07/12/21 08:40 Dose: 1 each Documented by: Tramadol HCl (Tramadol 50 Mg Tab) 50 mg PO TID PRN PRN Reason: Pain Past medical history: To include Chronic kidney disease stage III, COPD, hypertension, hyperlipidemia, persistent atrial fibrillation, secondary probably hypertension, moderate tricuspid regurgitation,: Breast cancer followed by bilateral mastectomy, stroke, small bowel obstruction Schizophrenia Social history: Lives at [facility]. Patient smoked for approximately 30 years stopped around age of 51. No alcohol. Does use a cane. Family history: Patient does not remember Physical examination: VITAL SIGNS: 98.1, 110, 18, 104/59, 94% room air GENERAL: Reclining in bed, awake, EYES: Pupils equal. Conjunctiva normal. HEENT: External appearance of nose and ears normal, oral cavity grossly normal. NECK: JVD not raised; masses not palpable. HEART: First and second heart sounds are normal; edema decreased LUNGS: Respiratory rate normal, diminished breath sound ABDOMEN: Soft, less distended nontender, liver spleen not palpable, no masses palpable. PSYCH:able to answer some simple questions. Otherwise forgetfull. MUSCULOSKELETAL: Evidence of OA especially in the hands INVESTIGATIONS, reviewed in the clinical context: July 12: Potassium 2.9 BUN 43 creatinine 1.9 to July 11: Potassium 3.2 BUN 50 creatinine 1.71 bicarb 36 July 10: White count 7.5 hemoglobin 8.7 potassium 3.2 BUN 47 creatinine 1.79 Computed tomography scan abdomen and pelvis: Heart is enlarged, anasarca, left pleural effusion, bibasilar atelectasis, bilateral hydronephrosis, abnormal soft tissue in the pelvis. Thickened bladder wall is indeterminate. Ascites. July 09: Potassium 3.2 BUN 41.2 creatinine 1.9. Iron 18% saturation 5.19 2-D echocardiogram: EF 50-55%. Right ventricle normal in size. [id number] mitral and tricuspid regurgitation. Moderate pulmonary hypertension VQ scan: Not completed as patient is not able to do the same Abdominal ultrasound: Ascites. Pleural effusion. No DVT reported. Gallstone. Thickened wall. Right kidney moderate hydronephrosis. Renal ultrasound: Moderate bilateral hydronephrosis. No evidence of renal mass. Urinary bladder not visualized. White count 6.6 hemoglobin 9.3 platelets 378 potassium 2.9 BUN 47 creatinine 1.96 albumin 2.7 Influenza type A, diabetes, RSV, COVID 19 [PCR]: Not detected EKG tracing personally reviewed by me-atrial fibrillation, rate 74 Previous labs: BUN 42 creatinine 1.16 from 2019 Assessment and plan: - acute on chronic congestive heart failure exacerbation from diastolic dysfunction EF 55: Improving Continue Lasix drip change to by mouth Lasix -Acute on chronic cor pulmonale exacerbation Responded well to Lasix drip. Now on by mouth Lasix -Possible acute kidney injury from cardiorenal syndrome: Prerenal Lasix drip. Follow with nephrology -Bilateral moderate hydronephrosis. Follow-up with urology -Tracheobronchomalacia -Chronic kidney disease stage III probably from nephrosclerosis Follow renal function -GERD Prilosec 20 mg twice a day - COPD in ex-smoker Pulmicort 0.5 mg twice a day. Advair 1 puff twice a day -Essential hypertension with chronic kidney disease Lopressor 25 mg twice a day -Hyperlipidemia Zocor 20 mg daily at bedtime -Persistent atrial fibrillation rate control Eliquis 5 mg twice a day he did Lopressor 25 mg twice a day -Secondary moderate pulmonary hypertension, possible cor pulmonale Lasix drip -Moderate tricuspid regurgitation Follow clinically -Moderate cognitive impairment, likely from Alzheimer's dementia -Chronic gait dysfunction baseline uses a cane Fall precautions Continue by mouth Lasix. Replace potassium. Add scheduled progression. Hopefully discharge tomorrow.
--- NOTE | 2021-07-12 16:32 | PN ---
PROGRESS NOTE Patient is seen for followup for acute kidney injury. Her serum creatinine has been fluctuating 1.7 to 1.9 mg/dL. There are plans for possible discharge today. On examination, blood pressure this morning was 96/57, heart rate 107 per minute. Patient is afebrile. EXAMINATION OF THE HEART: S1 and S2. EXAMINATION OF LUNGS: Decreased breath sounds at the bases. Abdomen is soft, non-tender. Examination of lower extremities shows no significant edema. Labs show sodium 139, potassium 2.9, BUN 43, serum creatinine 1.92. ASSESSMENT: 1. Bilateral hydronephrosis, currently with external [place]. Serum creatinine fluctuating between 1.[address] The [address] showed bilateral hydronephrosis. Urology has evaluated the patient and plans for possible cystoscopy down the road. At this time, creatinine has not worsened significantly; therefore no intervention at this time from urology standpoint. There are no nephrotoxic agents noted on board. 2. Chronic kidney disease. Previous creatinine 1.16 with episodes of acute kidney injury with creatinine as high as 2.5 previously. 3. Moderate pulmonary hypertension based on echocardiogram, EF 55%. 4. Hypokalemia secondary to diuretics. 5. Anemia of chronic disease with evidence of iron deficiency as well, status post IV iron. 6. Metabolic alkalosis associated with diuresis, maintained on Diamox, which we can continue. It is currently improving. PLAN: Replace potassium. Patient will need close followup with Urology as outpatient. Follow up with Nephrology as well. Repeat labs in a.m. If renal function is worsening, we may need to do the intervention prior to discharge. Continue with the Lasix for now. Patient is maintained on Lopressor. Her blood pressure is on the lower side, but heart rate remains high. Therefore I will continue with the current dose of Lopressor as well. MMODL / IJN: [id number] /
--- NOTE | 2021-07-12 16:33 | P.PN ---
Subjective Progress Note Date: 07/12/21 No acute overnight event, Creat stable having good urine output as been good. Patient has multiple comorbidities. Objective - Vital Signs Vital signs: Vital Signs Temp 98.1 F 07/12/21 11:01 Pulse 117 H 07/12/21 11:01 Resp 18 07/12/21 11:01 BP 104/59 07/12/21 11:01 Pulse Ox 99 07/12/21 11:01 Intake & Output 07/11/21 07/12/21 07/12/21 18:59 06:59 18:59 Intake Total 700 150 480 Output Total 750 Balance -50 150 480 Intake: Oral 700 150 480 Output: Urine 750 Other: Voiding Method Diaper Diaper Diaper Incontinent Incontinent Incontinent External Catheter External Catheter External Catheter - Constitutional General appearance: Present: no acute distress - Labs CBC & Chem 7: 07/10/21 05:40 07/12/21 06:18 Labs: Abnormal Lab Results - Last 24 Hours (Table) 07/12/21 Range/Units 06:18 Potassium 2.9 L (3.5-5.1) mmol/L Carbon Dioxide 37 H (22-30) mmol/L BUN 43 H (7-17) mg/dL Creatinine 1.92 H (0.52-1.04) mg/dL Assessment and Plan Assessment: 86 yo female admitted with acute CHF exacerbation and pulmonary hypertension. Having good Urine output and creat is stable overall since admission. She does have mutliple comorbidities and overall is a poor surgical candidate. At this time I recommend outpatient evaluation for her hydronephrosis as long as creat stays stable, if there is worsening of creat then we can consider cystoscopy with bilateral reterograde pyelogram during this admission. We will reassess her tomorrow
[2021-07-12] MEDS: GABAPENTIN 100 MG CAP PO SCH (20:45)
[2021-07-12] MEDS: OLANZapine ODT 10 MG TAB PO SCH (20:46)
[2021-07-13 05:11] LABS: African American GFR (CKD) 26 (>60 ml/min/1.73 sqM); Anion Gap 4 mmol/L; Blood Urea Nitrogen 41 mg/dL (7-17); Calcium 9.2 mg/dL (8.4-10.2); Carbon Dioxide 36 mmol/L (22-30); Chloride 100 mmol/L (98-107); Glucose 92 mg/dL (74-99); Non-African American GFR(CKD) 23 (>60 ml/min/1.73 sqM); Potassium 4.1 mmol/L (3.5-5.1); Sodium 140 mmol/L (137-145)
[2021-07-13] MEDS: SYMBICORT 80-4.5 MCG INHALER INHALATION SCH ×2 (07:57→19:44)
[2021-07-13] MEDS: CALCIUM CARB-VIT D 500 MG-5 MCG TAB PO SCH ×2 (09:50→20:21)
[2021-07-13] MEDS: CHOLECALCIFEROL 25 MCG (1000 IU) TABLET PO SCH (09:50)
[2021-07-13] MEDS: ATORVASTATIN 10 MG TAB PO SCH (09:51)
[2021-07-13] MEDS: LORATADINE 10 MG TAB PO SCH (09:51)
[2021-07-13] MEDS: CYANOCOBALAMIN 500 MCG TAB PO SCH (09:51)
[2021-07-13] MEDS: FUROSEMIDE 80 MG TAB PO SCH ×2 (09:51→12:32)
[2021-07-13] MEDS: PANTOPRAZOLE 40 MG TABLET PO SCH (09:51)
[2021-07-13] MEDS: MULTIVITAMINS, THERA 1 EACH TAB PO SCH (09:52)
[2021-07-13] MEDS: FERROUS SULFATE 325 MG TAB PO SCH (09:52)
[2021-07-13] MEDS: SENNOSIDES-DOCUSATE SODIUM 1 EACH TAB PO SCH ×2 (09:52→10:10)
[2021-07-13] MEDS: APIXABAN 5 MG TAB PO SCH (09:52)
[2021-07-13] MEDS: METOPROLOL TARTRATE 25 MG TAB PO SCH ×2 (09:52→20:20)
[2021-07-13] MEDS: ACETAMINOPHEN TAB 325 MG TAB PO SCH ×2 (09:53→20:20)
[2021-07-13] MEDS: acetaZOLAMIDE 250 MG TAB PO SCH ×2 (09:55→20:21)
[2021-07-13] MEDS: PSYLLIUM HUSK 100% 6 GM PACKET PO SCH (09:56)
[2021-07-13] MEDS: CARBAMIDE PEROXIDE 6.5% DROPS 15 ML BTL BOTH EARS SCH ×2 (09:56→20:23)
[2021-07-13] MEDS: FLUTICASONE 50MCG/SPRAY NASAL 16GM EA NOSTRIL SCH (09:56)
[2021-07-13] MEDS: ROFLUMILAST 250 MCG PO SCH (09:57)
[2021-07-13] MEDS: polyethylene glycoL 3350 17 GM POWD.PACK PO SCH (09:57)
[2021-07-13] MEDS: POTASSIUM CHLORIDE ER 20 MEQ TAB.ER PO SCH ×2 (10:10→20:20)
[2021-07-13] MEDS: traMADol 50 MG TAB PO PRN (16:14)
--- NOTE | 2021-07-13 16:29 | P.PN ---
Progress Note - Text Progress Note Date: 07/13/21 Chief Complaint: Abnormal labs Hospital course: This is a 86-year-old patient of Dr. Beth from visiting physician. Chronic stable medical conditions include chronic kidney disease stage III, COPD, hypertension, hyperlipidemia, persistent atrial fibrillation, secondary pulmonary hypertension, moderate tricuspid regurgitation. Patient not a very good historian.. Sent in with a note from her family doctor Dr. Beth stating that her current conditions include worsening renal function, low potassium and low magnesium hydronephrosis abdominal distention lower extremity edema. Patient'sappetite is fair. Not much change in her shortness of breath. She does have oxygen at home. No change in bowel movements. Does have pain in the joints. Edema has been worsening. Denies any fever and chills Admitted with acute on chronic congestive heart exacerbation. Started on IV Lasix drip. July 09: Pain on Lasix drip. Good urine output. Output was not measured correctly. Oral intake fair. Abdominal ultrasound shows bilateral hydronephrosis. Nephrology consulted. VQ scan ordered to rule out chronic PE: Patient is unable to complete examination. Abdominal ultrasound: Showing ascites, no DVT reported.. July 10: Patient on Lasix drip. More accurate measurement. About 1400 mL negative fluid balance. Breathing better. Eating fair. Edema started to go down. Decreased abdominal distention. July 11: Patient remains a Lasix drip. Edema coming down. Breathing better. I had Dr. Wall from cardiology reviewed the 2-D echocardiogram again. He did confirm that the right ventricle was significantly dilated and there was significant pulmonary hypertension. Hence patient does have cor pulmonale. Add Diamox. July 12: Potassium 2.9. Replace. Oral intake fair. On by mouth Lasix. Fluid restriction. July 13: Discussed with Dr. martinez from urology. To proceed for cystoscopy and to complete workup. Hold this evening dose of by mouth Lasix. We will gently hydrate overnight. Cut back Lasix to 60 mg twice a day. Review of systems: Was done for constitutional, cardiovascular, GI, pulmonary. relevant finding as above Active Medications Acetaminophen (Acetaminophen Tab 325 Mg Tab) 650 mg PO Q6HR PRN PRN Reason: Mild Pain or Fever > 100.5 Acetaminophen (Acetaminophen Tab 325 Mg Tab) 650 mg PO BID@0800,1999 [facility] Last Admin: 07/13/21 09:53 Dose: 650 mg Documented by: Acetazolamide (Acetazolamide 250 Mg Tab) 250 mg PO BID [facility] Last Admin: 07/13/21 09:55 Dose: 250 mg Documented by: Apixaban (Apixaban 2.5 Mg Tablet) 2.5 mg PO BID@0800,1999 [facility]; Protocol Atorvastatin Calcium (Atorvastatin 10 Mg Tab) 10 mg PO DAILY@0800 [facility] Last Admin: 07/13/21 09:51 Dose: 10 mg Documented by: Bisacodyl (Bisacodyl 10 Mg Supp) 10 mg RECTAL DAILY PRN PRN Reason: Constipation Budesonide/Formoterol Fumarate (Symbicort 80-4.5 Mcg Inhaler) 2 puff INHALATION RT-BID [facility] Last Admin: 07/13/21 07:57 Dose: 2 puff Documented by: Calcium Carbonate (Calcium Carb-Vit D 500 Mg-5 Mcg Tab) 1 each PO BID@0800,2000 [facility] Last Admin: 07/13/21 09:50 Dose: 1 each Documented by: Carbamide Perox/Anhydrous Glycerin (Carbamide Peroxide 6.5% Drops 15 Ml Btl) 5 drops BOTH EARS BID [facility] Last Admin: 07/13/21 09:56 Dose: 5 drops Documented by: Cholecalciferol (Cholecalciferol 25 Mcg (1000 Iu) Tablet) 50 mcg PO DAILY@0800 [facility] Last Admin: 07/13/21 09:50 Dose: 50 mcg Documented by: Cyanocobalamin (Cyanocobalamin 500 Mcg Tab) 1,000 mcg PO DAILY@0800 [facility] Last Admin: 07/13/21 09:51 Dose: 1,000 mcg Documented by: Diphenoxylate HCl/Atropine (Diphenox-Atrop 2.5-0.025 Mg 1 Each Tab) 1 each PO Q4H PRN PRN Reason: Diarrhea Ferrous Sulfate (Ferrous Sulfate 325 Mg Tab) 325 mg PO DAILY@0800 [facility] Last Admin: 07/13/21 09:52 Dose: 325 mg Documented by: Fluticasone Propionate (Fluticasone 50mcg/[place] Nasal 16gm) 1 spray EA NOSTRIL DAILY [facility] Last Admin: 07/13/21 09:56 Dose: 1 spray Documented by: Furosemide (Furosemide 80 Mg Tab) 60 mg PO BID@0900,1600 [facility] Gabapentin (Gabapentin 100 Mg Cap) 200 mg PO HS [facility] Last Admin: 07/12/21 20:45 Dose: 200 mg Documented by: Guaifenesin/Dextromethorphan (Guaifenesin-Dm 100-10mg/5ml 10 Ml Cup) 5 ml PO QID PRN PRN Reason: Cough Hydrocortisone Acetate (Hydrocortisone Suppository 25 Mg Supp) 25 mg RECTAL Q12H PRN PRN Reason: Hemorrhoids Sodium Chloride (Saline 0.45%) 1,000 mls @ 75 mls/hr IV .[id number] [facility] Stop: 07/14/21 02:29 Loratadine (Loratadine 10 Mg Tab) 10 mg PO DAILY@0800 [facility] Last Admin: 07/13/21 09:51 Dose: 10 mg Documented by: Metoprolol Tartrate (Metoprolol Tartrate 25 Mg Tab) 25 mg PO BID@08,1999 [facility] Last Admin: 07/13/21 09:52 Dose: 25 mg Documented by: Multivitamins (Multivitamins, Thera 1 Each Tab) 1 each PO DAILY@08 [facility] Last Admin: 07/13/21 09:52 Dose: 1 each Documented by: Naloxone HCl (Naloxone 0.4 Mg/Ml 1 Ml Vial) 0.2 mg IV Q2M PRN PRN Reason: Opioid Reversal Non-Formulary Medication (Roflumilast [Daliresp]) 250 mcg PO DAILY@0800 [facility] Last Admin: 07/13/21 09:57 Dose: Not Given Documented by: Non-Formulary Medication (Menthol [Biofreeze]) 1 applic TOPICAL QID PRN PRN Reason: Pain Olanzapine (Olanzapine Odt 10 Mg Tab) 20 mg PO HS@1999 [facility] Last Admin: 07/12/21 20:46 Dose: 20 mg Documented by: Pantoprazole Sodium (Pantoprazole 40 Mg Tablet) 40 mg PO DAILY@0730 [facility] Last Admin: 07/13/21 09:51 Dose: 40 mg Documented by: Polyethylene Glycol (Polyethylene Glycol 3350 17 Gm Powd.Pack) 17 gm PO DAILY@0800 [facility] Last Admin: 07/13/21 09:57 Dose: Not Given Documented by: Potassium Chloride (Potassium Chloride Er 20 Meq Tab.Er) 20 meq PO BID [facility] Last Admin: 07/13/21 10:10 Dose: 20 meq Documented by: Promethazine HCl (Promethazine 25 Mg Tab) 12.5 mg PO Q12H PRN PRN Reason: Nausea Last Admin: 07/09/21 11:21 Dose: 12.5 mg Documented by: Psyllium Hydrophilic Mucilloid (Psyllium Husk 100% 6 Gm Packet) 6 gm PO DAILY [facility] Last Admin: 07/13/21 09:56 Dose: 6 gm Documented by: Senna/Docusate Sodium (Sennosides-Docusate Sodium 1 Each Tab) 1 each PO D AILY@0800 [facility] Last Admin: 07/13/21 10:10 Dose: Not Given Documented by: Tramadol HCl (Tramadol 50 Mg Tab) 50 mg PO TID PRN PRN Reason: Pain Last Admin: 07/13/21 16:14 Dose: 50 mg Documented by: Past medical history: To include Chronic kidney disease stage III, COPD, hypertension, hyperlipidemia, persistent atrial fibrillation, secondary probably hypertension, moderate tricuspid regu rgitation,: Breast cancer followed by bilateral mastectomy, stroke, small bowel obstruction Schizophrenia Social history: Lives at [facility] apartment. Patient smoked for approximately 30 years stopped around age of 51. No alcohol. Does use a cane. Family history: Patient does not remember Physical examination: VITAL SIGNS: 98.1, 112, 20, 110/53, 98% room air GENERAL: Reclining in bed, awake, EYES: Pupils equal. Conjunctiva normal. HEENT: External appearance of nose and ears normal, oral cavity grossly normal. NECK: JVD not raised; masses not palpable. HEART: First and second heart sounds are normal; edema decreased LUNGS: Respiratory rate normal, diminished breath sound ABDOMEN: Soft, less distended nontender, liver spleen not palpable, no masses palpable. PSYCH:able to answer some simple questions. Otherwise forgetfull. MUSCULOSKELETAL: Evidence of OA especially in the hands INVESTIGATIONS, reviewed in the clinical context: July 13: Potassium 4.1 bicarb 36 BUN 41 and creatinine 197 July 12: Potassium 2.9 BUN 43 creatinine 1.9 to July 11: Potassium 3.2 BUN 50 creatinine 1.71 bicarb 36 July 10: White count 7.5 hemoglobin 8.7 potassium 3.2 BUN 47 creatinine 1.79 Computed tomography scan abdomen and pelvis: Heart is enlarged, anasarca, left pleural effusion, bibasilar atelectasis, bilateral hydronephrosis, abnormal soft tissue in the pelvis. Thickened bladder wall is indeterminate. Ascites. July 09: Potassium 3.2 BUN 41.2 creatinine 1.9. Iron 18% saturation 5.19 2-D echocardiogram: EF 50-55%. Right ventricle normal in size. [id number] mitral and tricuspid regurgitation. Moderate pulmonary hypertension VQ scan: Not completed as patient is not able to do the same Abdominal ultrasound: Ascites. Pleural effusion. No DVT reported. Gallstone. Thickened wall. Right kidney moderate hydronephrosis. Renal ultrasound: Moderate bilateral hydronephrosis. No evidence of renal mass. Urinary bladder not visualized. White count 6.6 hemoglobin 9.3 platelets 378 potassium 2.9 BUN 47 creatinine 1.96 albumin 2.7 Influenza type A, diabetes, RSV, COVID 19 [PCR]: Not detected EKG tracing personally reviewed by me-atrial fibrillation, rate 74 Previous labs: BUN 42 creatinine 1.16 from 2018 Assessment and plan: - acute on chronic congestive heart failure exacerbation from diastolic dysfunction EF 55: Better Lasix 60 mg by mouth twice a day starting tomorrow -Acute on chronic cor pulmonale exacerbation: Better By mouth Lasix 60 mg twice a day -acute kidney injury from cardiorenal syndrome: Prerenal: Worsening Hold Lasix today. Change to by mouth Lasix 60 mg twice a day starting tomorrow morning. -Bilateral moderate hydronephrosis. A cystoscopy and -Tracheobronchomalacia -Chronic kidney disease stage III probably from nephrosclerosis Follow renal function -GERD Prilosec 20 mg twice a day - COPD in ex-smoker Pulmicort 0.5 mg twice a day. Advair 1 puff twice a day -Essential hypertension with chronic kidney disease Lopressor 25 mg twice a day -Hyperlipidemia Zocor 20 mg daily at bedtime -Persistent atrial fibrillation rate control Eliquis 5 mg twice a day he did Lopressor 25 mg twice a day -Secondary moderate pulmonary hypertension, possible cor pulmonale -Moderate tricuspid regurgitation Follow clinically -Moderate cognitive impairment, likely from Alzheimer's dementia -Chronic gait dysfunction baseline uses a cane Fall precautions Decrease Lasix to 60 mg twice a day. Starting tomorrow. Gentle hydration today. Discussed with Dr. martinez. For cystoscopy and . Follow labs. Discussed with nurse. PTOT on the case.
[2021-07-13] MEDS ORDERED: SODIUM CHLORIDE 0.45% 1,000 ML IV SCH (16:30)
--- NOTE | 2021-07-13 18:43 | PN ---
PROGRESS NOTE Patient is seen for followup for acute kidney injury. Patient's renal function remains stable. Serum creatinine staying at about 1.9 mg/dL. She also has underlying chronic kidney disease. She was noted to have bilateral hydronephrosis. There was consideration of cystoscopy and bilateral retrograde pyelogram. The patient is being followed by Urology. PLEASE SEE NEXT NOTE. MMODL / IJN: [id number] / MTDD
--- NOTE | 2021-07-13 18:58 | PN ---
PROGRESS NOTE Patient is seen for followup for acute kidney injury, mostly obstructive uropathy, currently with indwelling Radford catheter. Patient has bilateral hydronephrosis and she is being considered for cystoscopy. This morning patient was comfortable, awake. She is not in any acute distress. Blood pressure was 110/53, heart rate 112 per minute. Patient is afebrile. EXAMINATION OF THE HEART: S1 and S2. EXAMINATION OF LUNGS: Bilateral breath sounds are heard. Abdomen is soft, non-tender. Examination of lower extremities shows no significant edema. Labs show sodium 140, potassium 4.1, chloride 100, BUN 41, creatinine 1.97. ASSESSMENT: 1. Acute kidney injury, bilateral hydronephrosis and obstructive uropathy, currently with indwelling Radford catheter with plans for cystoscopy. Patient is being followed by Urology. There are no nephrotoxic agents on board. 2. Chronic kidney disease. Previous creatinine 1.16 with previous episodes of acute kidney injury with previous creatinine as high as 2.5 previously. 3. Moderate pulmonary hypertension based on echocardiogram; ejection fraction 55%. 4. Hypokalemia secondary to diuretics. 5. Chronic kidney disease, stage 3, secondary to nephrosclerosis. 6. Metabolic alkalosis associated with diuresis, now maintained on Diamox. PLAN: Repeat labs in a.m. Monitor electrolytes. Add Aranesp for anemia. MMODL / IJN: [id number] /
[2021-07-13] MEDS: GABAPENTIN 100 MG CAP PO SCH (20:20)
[2021-07-13] MEDS: APIXABAN 2.5 MG TABLET PO SCH (20:20)
[2021-07-13] MEDS: OLANZapine ODT 10 MG TAB PO SCH (20:21)
[2021-07-13] MEDS ORDERED: DARBEPOETIN ALFA 60 MCG/0.3 ML SYRINGE SQ SCH (21:00)
[2021-07-14] MEDS: SYMBICORT 80-4.5 MCG INHALER INHALATION SCH ×2 (07:25→20:24)
[2021-07-14] MEDS: PANTOPRAZOLE 40 MG TABLET PO SCH (09:53)
[2021-07-14] MEDS: CALCIUM CARB-VIT D 500 MG-5 MCG TAB PO SCH ×2 (09:53→20:29)
[2021-07-14] MEDS: CYANOCOBALAMIN 500 MCG TAB PO SCH (09:54)
[2021-07-14] MEDS: LORATADINE 10 MG TAB PO SCH (09:54)
[2021-07-14] MEDS: FERROUS SULFATE 325 MG TAB PO SCH (09:54)
[2021-07-14] MEDS: APIXABAN 2.5 MG TABLET PO SCH ×2 (09:54→20:30)
[2021-07-14] MEDS: ATORVASTATIN 10 MG TAB PO SCH (09:54)
[2021-07-14] MEDS: FUROSEMIDE 20 MG TAB PO SCH ×2 (09:54→17:28)
[2021-07-14] MEDS: MULTIVITAMINS, THERA 1 EACH TAB PO SCH (09:55)
[2021-07-14] MEDS: CHOLECALCIFEROL 25 MCG (1000 IU) TABLET PO SCH (09:55)
[2021-07-14] MEDS: POTASSIUM CHLORIDE ER 20 MEQ TAB.ER PO SCH ×2 (09:55→20:30)
[2021-07-14] MEDS: METOPROLOL TARTRATE 25 MG TAB PO SCH ×2 (09:55→20:29)
[2021-07-14] MEDS: ACETAMINOPHEN TAB 325 MG TAB PO SCH ×2 (09:57→20:29)
[2021-07-14] MEDS: ROFLUMILAST 250 MCG PO SCH (09:58)
[2021-07-14] MEDS: SENNOSIDES-DOCUSATE SODIUM 1 EACH TAB PO SCH (09:58)
[2021-07-14] MEDS: polyethylene glycoL 3350 17 GM POWD.PACK PO SCH (09:58)
[2021-07-14] MEDS: acetaZOLAMIDE 250 MG TAB PO SCH ×2 (09:59→20:30)
[2021-07-14] MEDS: PSYLLIUM HUSK 100% 6 GM PACKET PO SCH (10:00)
[2021-07-14] MEDS: CARBAMIDE PEROXIDE 6.5% DROPS 15 ML BTL BOTH EARS SCH ×2 (10:00→20:42)
[2021-07-14] MEDS: FLUTICASONE 50MCG/SPRAY NASAL 16GM EA NOSTRIL SCH (10:01)
[2021-07-14 11:23] LABS: African American GFR (CKD) 27 (>60 ml/min/1.73 sqM); Anion Gap 5 mmol/L; Blood Urea Nitrogen 34 mg/dL (7-17); Calcium 9.1 mg/dL (8.4-10.2); Carbon Dioxide 32 mmol/L (22-30); Chloride 103 mmol/L (98-107); Glucose 157 mg/dL (74-99); Non-African American GFR(CKD) 23 (>60 ml/min/1.73 sqM); Potassium 4.1 mmol/L (3.5-5.1); Sodium 140 mmol/L (137-145)
--- NOTE | 2021-07-14 11:40 | XR ---
EXAMINATION TYPE: XR chest 1V portable DATE OF EXAM: 07/14/2021 CLINICAL HISTORY: Difficulty breathing and pulmonary edema progress study. TECHNIQUE: Single AP portable upright view of the chest is obtained. COMPARISON: Chest x-ray from 4 days earlier FINDINGS: Osseous structures redemonstrated demineralized. Degenerative change right shoulder are ag ain seen. Persistent cardiomegaly with left basilar opacity. New Right basilar linear atelectasis. New mild interstitial prominence. IMPRESSION: New bilateral mild interstitial edema. New right basilar linear atelectasis. Stable cardi omegaly with slight increased small left pleural effusion and associated left basilar atelectasis and /or infiltrate.
[2021-07-14] MEDS: traMADol 50 MG TAB PO PRN (11:48)
[2021-07-14] MEDS: CEFDINIR 300 MG CAP PO SCH (11:53)
--- NOTE | 2021-07-14 17:45 | P.PN ---
Subjective Progress Note Date: 07/14/21 Patient having worsening respiratory status this afternoon , Creat stable having good urine output as been good. currently tentatively scheduled for cystoscopy and bilateral RP tomorrow Objective - Vital Signs Vital signs: Vital Signs Temp 97.5 F L 07/14/21 13:00 Pulse 84 07/14/21 13:00 Resp 18 07/14/21 13:00 BP 90/55 07/14/21 13:00 Pulse Ox 100 07/14/21 13:00 Intake & Output 07/13/21 07/14/21 07/14/21 18:59 06:59 18:59 Intake Total 240 600 118 Output Total 200 Balance 40 600 118 Intake: Intake, IV Titration 600 Amount Sodium Chloride 0.45% 1, 600 000 ml @ 75 mls/hr IV . [id number] [facility] Rx#:[id number] Oral 240 118 Output: Urine 200 Other: Voiding Method Diaper Diaper Diaper Incontinent Incontinent Incontinent External Catheter External Catheter # Voids 1 3 1 # Bowel Movements 1 1 - Constitutional General appearance: Present: no acute distress - Labs CBC & Chem 7: 07/10/21 05:40 07/14/21 10:55 Labs: Abnormal Lab Results - Last 24 Hours (Table) 07/14/21 Range/Units 10:55 Carbon Dioxide 32 H (22-30) mmol/L BUN 34 H (7-17) mg/dL Creatinine 1.93 H (0.52-1.04) mg/dL Glucose 157 H (74-99) mg/dL Assessment and Plan Assessment: 86 yo female admitted with acute CHF exacerbation and pulmonary hypertension. Having good Urine output and creat is stable overall since admission. plan is to undergo cystoscopy and bilateral RP tomorrow. Having worsening respiratory function today. Well reevaluate tomorrow, if respiratory status worsen will delay surgery until her respiratory status improves
[2021-07-14] MEDS ORDERED: FUROSEMIDE 10 MG/ML 10 ML VIAL IV STA (20:15)
--- NOTE | 2021-07-14 20:20 | P.PN ---
Progress Note - Text Progress Note Date: 07/14/21 Chief Complaint: Abnormal labs Hospital course: This is a 86-year-old patient of Dr. Beth from visiting physician. Chronic stable medical conditions include chronic kidney disease stage III, COPD, hypertension, hyperlipidemia, persistent atrial fibrillation, secondary pulmonary hypertension, moderate tricuspid regurgitation. Patient not a very good historian.. Sent in with a note from her family doctor Dr. Beth stating that her current conditions include worsening renal function, low potassium and low magnesium hydronephrosis abdominal distention lower extremity edema. Patient'sappetite is fair. Not much change in her shortness of breath. She does have oxygen at home. No change in bowel movements. Does have pain in the joints. Edema has been worsening. Denies any fever and chills Admitted with acute on chronic congestive heart exacerbation. Started on IV Lasix drip. July 09: Pain on Lasix drip. Good urine output. Output was not measured correctly. Oral intake fair. Abdominal ultrasound shows bilateral hydronephrosis. Nephrology consulted. VQ scan ordered to rule out chronic PE: Patient is unable to complete examination. Abdominal ultrasound: Showing ascites, no DVT reported.. July 10: Patient on Lasix drip. More accurate measurement. About 1400 mL negative fluid balance. Breathing better. Eating fair. Edema started to go down. Decreased abdominal distention. July 11: Patient remains a Lasix drip. Edema coming down. Breathing better. I had Dr. Wall from cardiology reviewed the 2-D echocardiogram again. He did confirm that the right ventricle was significantly dilated and there was significant pulmonary hypertension. Hence patient does have cor pulmonale. Add Diamox. July 12: Potassium 2.9. Replace. Oral intake fair. On by mouth Lasix. Fluid restriction. July 13: Discussed with Dr. martinez from urology. To proceed for cystoscopy and to complete workup. Hold this evening dose of by mouth Lasix. We will gently hydrate overnight. Cut back Lasix to 60 mg twice a day. July 14: Patient has a congested chest this morning. I did order a chest x- ray. Mild fluid overload. 1 dose of IV Lasix 60 mg ordered. Discussed with Dr. martinez from urology. We will postpone cystoscopy for outpatient the present time. Possible acute bronchitis. Added Omnicef. Review of systems: Was done for constitutional, cardiovascular, GI, pulmonary. relevant finding as above Active Medications Acetaminophen (Acetaminophen Tab 325 Mg Tab) 650 mg PO Q6HR PRN PRN Reason: Mild Pain or Fever > 100.5 Acetaminophen (Acetaminophen Tab 325 Mg Tab) 650 mg PO BID@799,1999 [facility] Last Admin: 07/14/21 09:57 Dose: 650 mg Documented by: Acetazolamide (Acetazolamide 250 Mg Tab) 250 mg PO BID [facility] Last Admin: 07/14/21 09:59 Dose: 250 mg Documented by: Apixaban (Apixaban 2.5 Mg Tablet) 2.5 mg PO BID@ [facility]; Protocol Last Admin: 07/14/21 09:54 Dose: 2.5 mg Documented by: Atorvastatin Calcium (Atorvastatin 10 Mg Tab) 10 mg PO DAILY@799 [facility] Last Admin: 07/14/21 09:54 Dose: 10 mg Documented by: Bisacodyl (Bisacodyl 10 Mg Supp) 10 mg RECTAL DAILY PRN PRN Reason: Constipation Budesonide/Formoterol Fumarate (Symbicort 80-4.5 Mcg Inhaler) 2 puff INHALATION RT-BID [facility] Last Admin: 07/14/21 07:25 Dose: 2 puff Documented by: Calcium Carbonate (Calcium Carb-Vit D 500 Mg-5 Mcg Tab) 1 each PO BID@799,1999 [facility] Last Admin: 07/14/21 09:53 Dose: 1 each Documented by: Carbamide Perox/Anhydrous Glycerin (Carbamide Peroxide 6.5% Drops 15 Ml Btl) 5 drops BOTH EARS BID [facility] Last Admin: 07/14/21 10:00 Dose: 5 drops Documented by: Cefdinir (Cefdinir 300 Mg Cap) 300 mg PO DAILY [facility] Last Admin: 07/14/21 11:53 Dose: 300 mg Documented by: Cholecalciferol (Cholecalciferol 25 Mcg (1000 Iu) Tablet) 50 mcg PO DAILY@0800 [facility] Last Admin: 07/14/21 09:55 Dose: 50 mcg Documented by: Cyanocobalamin (Cyanocobalamin 500 Mcg Tab) 1,000 mcg PO DAILY@0800 [facility] Last Admin: 07/14/21 09:54 Dose: 1,000 mcg Documented by: Darbepoetin Lauri (Darbepoetin Lauri 60 Mcg/0.3 Ml Syringe) 60 mcg SQ Q7D [facility] Last Admin: 12/14/21 20:36 Dose: 60 mcg Documented by: Diphenoxylate HCl/Atropine (Diphenox-Atrop 2.5-0.025 Mg 1 Each Tab) 1 each PO Q4H PRN PRN Reason: Diarrhea Ferrous Sulfate (Ferrous Sulfate 325 Mg Tab) 325 mg PO DAILY@0800 [facility] Last Admin: 07/14/21 09:54 Dose: 325 mg Documented by: Fluticasone Propionate (Fluticasone 50mcg/[place] Nasal 16gm) 1 spray EA NOSTRIL DAILY [facility] Last Admin: 07/14/21 10:01 Dose: 1 spray Documented by: Furosemide (Furosemide 20 Mg Tab) 60 mg PO BID@0900,1600 [facility] Last Admin: 07/14/21 17:28 Dose: 60 mg Documented by: Furosemide (Furosemide 10 Mg/Ml 10 Ml Vial) 60 mg IV ONCE STA Stop: 07/14/21 20:16 Gabapentin (Gabapentin 100 Mg Cap) 100 mg PO HS [facility] Last Admin: 07/13/21 20:20 Dose: 100 mg Documented by: Guaifenesin/Dextromethorphan (Guaifenesin-Dm 100-10mg/5ml 10 Ml Cup) 5 ml PO QID PRN PRN Reason: Cough Hydrocortisone Acetate (Hydrocortisone Suppository 25 Mg Supp) 25 mg RECTAL Q12H PRN PRN Reason: Hemorrhoids Loratadine (Loratadine 10 Mg Tab) 10 mg PO DAILY@0800 [facility] Last Admin: 07/14/21 09:54 Dose: 10 mg Documented by: Metoprolol Tartrate (Metoprolol Tartrate 25 Mg Tab) 25 mg PO BID@0800,1999 [facility] Last Admin: 07/14/21 09:55 Dose: 25 mg Documented by: Multivitamins (Multivitamins, Thera 1 Each Tab) 1 each PO DAILY@0800 [facility] Last Admin: 07/14/21 09:55 Dose: 1 each Documented by: Naloxone HCl (Naloxone 0.4 Mg/Ml 1 Ml Vial) 0.2 mg IV Q2M PRN PRN Reason: Opioid Reversal Non-Formulary Medication (Roflumilast [Daliresp]) 250 mcg PO DAILY@0800 [facility] Last Admin: 07/14/21 09:58 Dose: Not Given Documented by: Non-Formulary Medication (Menthol [Biofreeze]) 1 applic TOPICAL QID PRN PRN Reason: Pain Olanzapine (Olanzapine Odt 10 Mg Tab) 20 mg PO HS@1999 [facility] Last Admin: 07/13/21 20:21 Dose: 20 mg Documented by: Pantoprazole Sodium (Pantoprazole 40 Mg Tablet) 40 mg PO DAILY@0730 [facility] Last Admin: 07/14/21 09:53 Dose: 40 mg Documented by: Polyethylene Glycol (Polyethylene Glycol 3350 17 Gm Powd.Pack) 17 gm PO DAILY@0800 [facility] Last Admin: 07/14/21 09:58 Dose: Not Given Documented by: Potassium Chloride (Potassium Chloride Er 20 Meq Tab.Er) 20 meq PO BID [facility] Last Admin: 07/14/21 09:55 Dose: 20 meq Documented by: Promethazine HCl (Promethazine 25 Mg Tab) 12.5 mg PO Q12H PRN PRN Reason: Nausea Last Admin: 07/09/21 11:21 Dose: 12.5 mg Documented by: Psyllium Hydrophilic Mucilloid (Psyllium Husk 100% 6 Gm Packet) 6 gm PO DAILY [facility] Last Admin: 07/14/21 10:00 Dose: Not Given Documented by: Senna/Docusate Sodium (Sennosides-Docusate Sodium 1 Each Tab) 1 each PO DAILY@0800 [facility] Last Admin: 07/14/21 09:58 Dose: Not Given Documented by: Tramadol HCl (Tramadol 50 Mg Tab) 50 mg PO TID PRN PRN Reason: Pain Last Admin: 07/14/21 11:48 Dose: 50 mg Documented by: Past medical history: To include Chronic kidney disease stage III, COPD, hypertension, hyperlipidemia, persistent atrial fibrillation, secondary probably hypertension, moderate tricuspid regurgitation,: Breast cancer followed by bilateral mastectomy, stroke, small bowel obstruction Schizophrenia Social history: Lives at [facility] apartment. Patient smoked for approximately 30 years stopped around age of 51. No alcohol. Does use a cane. Family history: Patient does not remember Physical examination: VITAL SIGNS: 97.5, 84, 18, 104/68, 96% on 2 L GENERAL: Sitting up in a chair, awake EYES: Pupils equal. Conjunctiva normal. HEENT: External appearance of nose and ears normal, oral cavity grossly normal. NECK: JVD not raised; masses not palpable. HEART: First and second heart sounds are normal; edema decreased LUNGS: Respiratory rate normal, occasional crackle ABDOMEN: Soft, less distended nontender, liver spleen not palpable, no masses palpable. PSYCH:able to answer some simple questions. Otherwise forgetfull. MUSCULOSKELETAL: Evidence of OA especially in the hands INVESTIGATIONS, reviewed in the clinical context: July 14: BUN 34. Creatinine 1.93.Chest x-ray film personally reviewed by me-mild pulmonary edema July 13: Potassium 4.1 bicarb 36 BUN 41 and creatinine 197 July 12: Potassium 2.9 BUN 43 creatinine 1.9 to July 11: Potassium 3.2 BUN 50 creatinine 1.71 bicarb 36 July 10: White count 7.5 hemoglobin 8.7 potassium 3.2 BUN 47 creatinine 1.79 Computed tomography scan abdomen and pelvis: Heart is enlarged, anasarca, left pleural effusion, bibasilar atelectasis, bilateral hydronephrosis, abnormal soft tissue in the pelvis. Thickened bladder wall is indeterminate. Ascites. July 09: Potassium 3.2 BUN 41.2 creatinine 1.9. Iron 18% saturation 5.19 2-D echocardiogram: EF 50-55%. Right ventricle normal in size. [id number] mitral and tricuspid regurgitation. Moderate pulmonary hypertension VQ scan: Not completed as patient is not able to do the same Abdominal ultrasound: Ascites. Pleural effusion. No DVT reported. Gallstone. Thickened wall. Right kidney moderate hydronephrosis. Renal ultrasound: Moderate bilateral hydronephrosis. No evidence of renal mass. Urinary bladder not visualized. White count 6.6 hemoglobin 9.3 platelets 378 potassium 2.9 BUN 47 creatinine 1.96 albumin 2.7 Influenza type A, diabetes, RSV, COVID 19 [PCR]: Not detected EKG tracing personally reviewed by me-atrial fibrillation, rate 74 Previous labs: BUN 42 creatinine 1.16 from 2019 Assessment and plan: -Acute pulmonary edema from IV fluids. 1 dose of IV Lasix 60 mg daily. - acute on chronic congestive heart failure exacerbation from diastolic dysfunction EF 55: Better Lasix 60 mg by mouth twice a day starting tomorrow -Acute on chronic cor pulmonale exacerbation: Better By mouth Lasix 60 mg twice a day -acute kidney injury from cardiorenal syndrome: Prerenal: Worsening Hold Lasix today. Change to by mouth Lasix 60 mg twice a day starting tomorrow morning. -Bilateral moderate hydronephrosis. A cystoscopy and -Tracheobronchomalacia -Chronic kidney disease stage III probably from nephrosclerosis Follow renal function -GERD Prilosec 20 mg twice a day - COPD in ex-smoker Pulmicort 0.5 mg twice a day. Advair 1 puff twice a day -Essential hypertension with chronic kidney disease Lopressor 25 mg twice a day -Hyperlipidemia Zocor 20 mg daily at bedtime -Persistent atrial fibrillation rate control Eliquis 5 mg twice a day he did Lopressor 25 mg twice a day -Secondary moderate pulmonary hypertension, possible cor pulmonale -Moderate tricuspid regurgitation Follow clinically -Moderate cognitive impairment, likely from Alzheimer's dementia -Chronic gait dysfunction baseline uses a cane Fall precautions Chest x-ray showed mild pulmonary edema. 1 dose of IV Lasix [address] martinez from urology. Postpone cystoscopy for now. Possibly outpatient. Repeat labs in the morning. Hopefully discharge tomorrow. Add Omnicef for acute bronchitis.
[2021-07-14] MEDS: OLANZapine ODT 10 MG TAB PO SCH (20:28)
[2021-07-14] MEDS: GABAPENTIN 100 MG CAP PO SCH (20:30)
[2021-07-15 06:41] LABS: African American GFR (CKD) 26 (>60 ml/min/1.73 sqM); Anion Gap 4 mmol/L; Blood Urea Nitrogen 35 mg/dL (7-17); Calcium 9.6 mg/dL (8.4-10.2); Carbon Dioxide 33 mmol/L (22-30); Chloride 103 mmol/L (98-107); Glucose 93 mg/dL (74-99); Non-African American GFR(CKD) 22 (>60 ml/min/1.73 sqM); Potassium 4.8 mmol/L (3.5-5.1); Sodium 140 mmol/L (137-145)
[2021-07-15] MEDS ORDERED: ONDANSETRON 4 MG/2 ML VIAL IVP ONE (07:08)
[2021-07-15] MEDS ORDERED: DEXAMETHASONE SOD PHOSPHATE 4 MG/ML 1 ML VIAL IV ONE (07:08)
[2021-07-15] MEDS ORDERED: HYDROmorphone 0.5 MG/0.5 ML SYRINGE IVP PRN (07:08)
[2021-07-15] MEDS ORDERED: LACTATED RINGERS 1,000 ML IV SCH (07:08)
[2021-07-15] MEDS ORDERED: LIDOCAINE 1% (10MG/ML) FOR IV START INTRADERMA PRN (07:08)
[2021-07-15] MEDS ORDERED: MIDAZOLAM 2 MG/2 ML VIAL IV PRN (07:08)
[2021-07-15] MEDS: SYMBICORT 80-4.5 MCG INHALER INHALATION SCH (08:04)
[2021-07-15] MEDS: ROFLUMILAST 250 MCG PO SCH (08:12)
[2021-07-15] MEDS: polyethylene glycoL 3350 17 GM POWD.PACK PO SCH (11:21)
[2021-07-15] MEDS: ATORVASTATIN 10 MG TAB PO SCH (11:22)
[2021-07-15] MEDS: CEFDINIR 300 MG CAP PO SCH (11:22)
[2021-07-15] MEDS: CHOLECALCIFEROL 25 MCG (1000 IU) TABLET PO SCH (11:22)
[2021-07-15] MEDS: ACETAMINOPHEN TAB 325 MG TAB PO SCH (11:22)
[2021-07-15] MEDS: PSYLLIUM HUSK 100% 6 GM PACKET PO SCH (11:22)
[2021-07-15] MEDS: PANTOPRAZOLE 40 MG TABLET PO SCH (11:23)
[2021-07-15] MEDS: POTASSIUM CHLORIDE ER 20 MEQ TAB.ER PO SCH (11:23)
[2021-07-15] MEDS: CALCIUM CARB-VIT D 500 MG-5 MCG TAB PO SCH (11:23)
[2021-07-15] MEDS: METOPROLOL TARTRATE 25 MG TAB PO SCH (11:23)
[2021-07-15] MEDS: FERROUS SULFATE 325 MG TAB PO SCH (11:23)
[2021-07-15] MEDS: MULTIVITAMINS, THERA 1 EACH TAB PO SCH (11:23)
[2021-07-15] MEDS: APIXABAN 2.5 MG TABLET PO SCH (11:23)
[2021-07-15] MEDS: CYANOCOBALAMIN 500 MCG TAB PO SCH (11:24)
[2021-07-15] MEDS: FUROSEMIDE 20 MG TAB PO SCH ×2 (11:24→15:47)
[2021-07-15] MEDS: SENNOSIDES-DOCUSATE SODIUM 1 EACH TAB PO SCH (11:24)
[2021-07-15] MEDS: FLUTICASONE 50MCG/SPRAY NASAL 16GM EA NOSTRIL SCH (11:25)
[2021-07-15] MEDS: CARBAMIDE PEROXIDE 6.5% DROPS 15 ML BTL BOTH EARS SCH (11:25)
[2021-07-15] MEDS: acetaZOLAMIDE 250 MG TAB PO SCH (11:28)
[2021-07-15 13:07] VITALS: BP 103/63; PULSE 106; RESP 21; TEMP 98
[2021-07-15] MEDS: traMADol 50 MG TAB PO PRN (13:17)
[2021-07-15 14:22] VITALS: BMI 30.4
--- NOTE | 2021-07-15 15:15 | P.PN ---
Subjective Progress Note Date: 07/15/21 Patient having worsening respiratory status worsened yesterday. Surgery was canceled, creatinine is at 2.01 Objective - Vital Signs Vital signs: Vital Signs Temp 98.0 F 07/15/21 13:00 Pulse 106 H 07/15/21 13:00 Resp 21 07/15/21 13:00 BP 103/63 07/15/21 13:00 Pulse Ox 100 07/15/21 13:00 Intake & Output 07/14/21 07/15/21 07/15/21 18:59 06:59 18:59 Intake Total 118 120 Balance 118 120 Weight 91 kg Intake: Oral 118 120 Other: Voiding Method Diaper Diaper Diaper Incontinent Incontinent Incontinent # Voids 1 3 # Bowel Movements 1 - Labs CBC & Chem 7: 07/10/21 05:40 07/15/21 05:25 Labs: Abnormal Lab Results - Last 24 Hours (Table) 07/15/21 Range/Units 05:25 Carbon Dioxide 33 H (22-30) mmol/L BUN 35 H (7-17) mg/dL Creatinine 2.01 H (0.52-1.04) mg/dL Assessment and Plan Assessment: 86 yo female admitted with acute CHF exacerbation and pulmonary hypertension. Having good Urine output and creat is stable overall since admission. Initial plan is to undergo cystoscopy and bilateral RP canceled due to worsening re spiratory status, this was discussed with Dr Serrano . -Okay for discharge from urology standpoint, we'll follow-up as an outpatient in 1-2 weeks. We'll plan on doing bilateral retrograde pyelogram as an outpatient
--- NOTE | 2021-07-15 16:54 | PN ---
PROGRESS NOTE Patient is seen for followup for chronic kidney disease. She has underlying chronic hydronephrosis and plan is to perform a cystoscopy and further workup as outpatient. Renal function has been stable. Plans are for discharge. EXAMINATION: Today, patient is comfortable, awake, not in any acute distress. Blood pressure 103/63, heart rate 106 per minute. She is afebrile. Examination of the heart S1, S2. Examination of lungs decreased breath sounds at the bases. Abdomen is soft, nontender. Examination of lower extremities shows no evidence of edema. LAB: Show sodium 140, potassium 4.8, serum creatinine 2.0 and BUN 35. ASSESSMENT: 1. Acute kidney injury, bilateral hydronephrosis, obstructive uropathy for further workup as outpatient. The patient is being followed by Urology. 2. Chronic kidney disease stage 3, previous creatinine 1.16 with multiple episodes of acute kidney injury, most likely obstructive. 3. Moderate pulmonary hypertension based on echocardiogram. EF 55%. 4. Metabolic alkalosis associated with diuresis, currently on Diamox. PLAN: Will DC the Diamox and follow up as outpatient with Urology. Continue with the Lasix for now. MMODL / IJN: [id number] /
--- NOTE | 2021-07-15 17:30 | P.DS ---
Providers Date of admission: 07/08/21 14:24 Expected date of discharge: 07/15/21 Attending physician: Vega Michael Consults: 07/08/21 13:56 Consult Physician Routine Consulting Provider: Nicolas Goldsmith Consult Reason/Comments: renal failure Do you want consulting provider notified?: Yes 07/09/21 08:09 Consult Physician Routine Consulting Provider: Matthew Maurer Consult Reason/Comments: bilateral hydronephrosis Do you want consulting provider notified?: Yes Primary care physician: Dillon Beth Hospital Course: Chief Complaint: Abnormal labs Hospital course: This is a 86-year-old patient of Dr. Beth from visiting physician. Chronic stable medical conditions include chronic kidney disease stage III, COPD, hypertension, hyperlipidemia, persistent atrial fibrillation, secondary pulmonary hypertension, moderate tricuspid regurgitation. Patient not a very good historian.. Sent in with a note from her family doctor Dr. Beth stating that her current conditions include worsening renal function, low potassium and low magnesium hydronephrosis abdominal distention lower extremity edema. Patient'sappetite is fair. Not much change in her shortness of breath. She does have oxygen at home. No change in bowel movements. Does have pain in the joints. Edema has been worsening. Denies any fever and chills Admitted with acute on chronic congestive heart exacerbation. Started on IV Lasix drip. Patient had used really well. Abdominal distention and edema significantly been down. VQ scan was done to rule out chronic PE but could not be able to be completed. Abdominal ultrasound showed ascites. No intra- abdominal DVT was present. 2-D echocardiogram results were reviewed with Dr. Wall from cardiology. Patient had significant right ventricle dilatation. Patient's diagnosis of cor pulmonale explained findings. Patient did have some acute kidney injury from diuresis. Patient also has bilateral hydronephrosis. Patient was seen by urology. Given her overall weak status she was felt not a good candidate for anesthesia for cystoscopy. This to be further addressed as outpatient. Oral intake fair. Also treated for acute bronchitis. Dose of Neurontin was cutback. July 15: Patient be discharged on Lasix 60 mg twice a day. Short course of oral antibiotic. Outpatient follow-up with urology. Patient will return to her assisted living. Pulse oxing 97% on room air. Overall prognosis guarded. Discussion and discharge planning more than 35 minutes Consultation: Nephrology Dr. fontanez from urology Past medical history: To include Chronic kidney disease stage III, COPD, hypertension, hyperlipidemia, persistent atrial fibrillation, secondary probably hypertension, moderate tricuspid regurgitation,: Breast cancer followed by bilateral mastectomy, stroke, small bowel obstruction Schizophrenia Social history: Lives at [facility] apartment. Patient smoked for approximately 30 years stopped around age of 51. No alcohol. Does use a cane. Family history: Patient does not remember Physical examination: VITAL SIGNS: GENERAL: Sitting up in a chair, awake EYES: Pupils equal. Conjunctiva normal. HEENT: External appearance of nose and ears normal, oral cavity grossly normal. NECK: JVD not raised; masses not palpable. HEART: First and second heart sounds are normal; edema decreased LUNGS: Respiratory rate normal, occasional crackle ABDOMEN: Soft, less distended nontender, liver spleen not palpable, no masses palpable. PSYCH:able to answer some simple questions. Otherwise forgetfull. MUSCULOSKELETAL: Evidence of OA especially in the hands INVESTIGATIONS, reviewed in the clinical context: July 14: BUN 34. Creatinine 1.93.Chest x-ray film personally reviewed by me-mild pulmonary edema July 13: Potassium 4.1 bicarb 36 BUN 41 and creatinine 197 July 12: Potassium 2.9 BUN 43 creatinine 1.9 to July 11: Potassium 3.2 BUN 50 creatinine 1.71 bicarb 36 July 10: White count 7.5 hemoglobin 8.7 potassium 3.2 BUN 47 creatinine 1.79 Computed tomography scan abdomen and pelvis: Heart is enlarged, anasarca, left pleural effusion, bibasilar atelectasis, bilateral hydronephrosis, abnormal soft tissue in the pelvis. Thickened bladder wall is indeterminate. Ascites. July 09: Potassium 3.2 BUN 41.2 creatinine 1.9. Iron 18% saturation 5.19 2-D echocardiogram: EF 50-55%. Right ventricle normal in size. [id number] mitral and tricuspid regurgitation. Moderate pulmonary hypertension VQ scan: Not completed as patient is not able to do the same Abdominal ultrasound: Ascites. Pleural effusion. No DVT reported. Gallstone. Thickened wall. Right kidney moderate hydronephrosis. Renal ultrasound: Moderate bilateral hydronephrosis. No evidence of renal mass. Urinary bladder not visualized. White count 6.6 hemoglobin 9.3 platelets 378 potassium 2.9 BUN 47 creatinine 1.96 albumin 2.7 Influenza type A, diabetes, RSV, COVID 19 [PCR]: Not detected EKG tracing personally reviewed by me-atrial fibrillation, rate 74 Previous labs: BUN 42 creatinine 1.16 from 2019 Assessment and plan: - acute on chronic congestive heart failure exacerbation from diastolic dysfunction EF 55: Better Lasix 60 mg by mouth twice a day \ -Acute pulmonary edema from IV fluids.: Improved 1 dose of IV Lasix 60 mg -Acute on chronic cor pulmonale exacerbation: Better By mouth Lasix 60 mg twice a day -acute kidney injury from cardiorenal syndrome: Prerenal: -Bilateral moderate hydronephrosis. Possible cystoscopy as outpatient. If patient is most stable for anesthesia down the road than this may be attempted -Chronic, Tracheobronchomalacia -Chronic kidney disease stage III probably from nephrosclerosis Follow renal function -GERD Prilosec 20 mg twice a day - COPD in ex-smoker Pulmicort 0.5 mg twice a day. Advair 1 puff twice a day -Essential hypertension with chronic kidney disease Lopressor 25 mg twice a day -Hyperlipidemia Zocor 20 mg daily at bedtime -Persistent atrial fibrillation rate control Eliquis 5 mg twice a day he did Lopressor 25 mg twice a day -Secondary moderate pulmonary hypertension, possible cor pulmonale -Moderate tricuspid regurgitation Follow clinically -Moderate cognitive impairment, likely from Alzheimer's dementia -Chronic gait dysfunction baseline uses a cane Fall precautions Disposition: . [facility], assisted living Plan - Discharge Summary New Discharge Prescriptions: New Cefdinir [Omnicef] 300 mg PO DAILY #5 cap Gabapentin [Neurontin] 100 mg PO HS #30 cap Apixaban [Eliquis] 2.5 mg PO BID@ #60 tablet Potassium Chloride ER [K-Dur 20] 20 meq PO DAILY #30 tablet Psyllium Husk 100% [Metamucil Packet] 6 gm PO DAILY #30 packet Continue Omeprazole [PriLOSEC] 20 mg PO BID@ Promethazine [Phenergan] 12.5 mg PO Q12H PRN PRN Reason: Nausea Acetaminophen [Tylenol] 650 mg PO BID@ Fluticasone/Salmeterol [Advair 250-50 Diskus] 1 puff INHALATION RT-BID Calcium Carbonate/Vitamin D3 [Calcium 600-Vit D3 10 mcg (400 Iu)] 1 tab PO BID@0800,1999 Multivit-Min/FA/Lycopen/Lutein [Centrum Silver Tablet] 1 tab PO DAILY@0800 Ferrous Gluconate 324 mg PO DAILY@0800 Cyanocobalamin (Vitamin B-12) [Vitamin B-12] 1,000 mcg PO DAILY@0800 Budesonide [Pulmicort] 0.5 mg INHALATION RT-BID Diphenox-Atrop 2.5-0.025 mg [Lomotil] 1 tab PO Q4H PRN PRN Reason: Diarrhea bisacodyL [Dulcolax] 10 mg RECTAL DAILY PRN PRN Reason: Constipation OLANZapine [OLANZapine Odt] 20 mg PO HS@1999 Hydrocortisone Acetate [Anucort-Hc] 25 mg RECTAL Q12H PRN PRN Reason: Hemorrhoids Menthol [Biofreeze] 1 applic TOPICAL QID PRN PRN Reason: Pain Simvastatin [Zocor] 20 mg PO DAILY@0800 Metoprolol Tartrate [Lopressor] 25 mg PO BID@799,1999 traMADol HCL 50 mg PO TID PRN PRN Reason: Pain Carbamide Peroxide [Debrox Otic] 5 drops BOTH EARS BID Cholecalciferol [Vitamin D3 (25 Mcg = 1000 Iu)] 50 mcg PO DAILY@0800 Fluticasone Nasal [place]unction [Flonase Nasal Junction] 1 spray EA NOSTRIL DAILY guaiFENesin [Mucinex] 1,200 mg PO BID@799,1999 Roflumilast [Daliresp] 250 mcg PO DAILY@0800 Sennosides-Docusate Sodium [Senokot-S] 1 tab PO DAILY@0800 Changed Furosemide [Lasix] 60 mg PO BID #0 Discontinued polyethylene glycoL 3350 [Miralax] 17 gm PO DAILY@0800 Gabapentin [Neurontin] 300 mg PO BID@799,1999 Apixaban [Eliquis] 5 mg PO BID@799,1999 #0 guaiFENesin-DM 100-10MG/5ML [Robitussin DM] 5 ml PO QID PRN PRN Reason: Cough Loratadine 10 mg PO DAILY@0800 Azithromycin [Zithromax] 250 mg PO MOWEFR Docusate Sodium [Dok] 100 mg PO BID@799,1999 Doxycycline Hyclate 100 mg PO BID Potassium Chloride ER [K-Dur 10] 10 meq PO DAILY Discharge Medication List Acetaminophen [Tylenol] 650 mg PO BID@799,199907/25/17 [History] Calcium Carbonate/Vitamin D3 [Calcium 600-Vit D3 10 mcg (400 Iu)] 1 tab PO BID@799,199907/25/17 [History] Fluticasone/Salmeterol [Advair 250-50 Diskus] 1 puff INHALATION RT-BID 07/25/17 [History] Multivit-Min/FA/Lycopen/Lutein [Centrum Silver Tablet] 1 tab PO DAILY@79907/25/17 [History] Omeprazole [PriLOSEC] 20 mg PO BID@799,199907/25/17 [History] Promethazine [Phenergan] 12.5 mg PO Q12H PRN 07/25/17 [History] Budesonide [Pulmicort] 0.5 mg INHALATION RT-BID 09/24/18 [History] Cyanocobalamin (Vitamin B-12) [Vitamin B-12] 1,000 mcg PO DAILY@79909/24/18 [History] Diphenox-Atrop 2.5-0.025 mg [Lomotil] 1 tab PO Q4H PRN 09/24/18 [History] Ferrous Gluconate 324 mg PO DAILY@79909/24/18 [History] Hydrocortisone Acetate [Anucort-Hc] 25 mg RECTAL Q12H PRN 09/24/18 [History] OLANZapine [OLANZapine Odt] 20 mg PO HS@199909/24/18 [History] bisacodyL [Dulcolax] 10 mg RECTAL DAILY PRN 09/24/18 [History] Menthol [Biofreeze] 1 applic TOPICAL QID PRN 04/02/19 [History] Simvastatin [Zocor] 20 mg PO DAILY@79904/02/19 [History] Carbamide Peroxide [Debrox Otic] 5 drops BOTH EARS BID 07/08/21 [History] Cholecalciferol [Vitamin D3 (25 Mcg = 1000 Iu)] 50 mcg PO DAILY@0807/08/21 [History] Fluticasone Nasal [place]unction [Flonase Nasal [place]unction] 1 spray EA NOSTRIL DAILY 07/08/21 [History] Metoprolol Tartrate [Lopressor] 25 mg PO BID@799,199907/08/21 [History] Roflumilast [Daliresp] 250 mcg PO DAILY@79907/08/21 [History] Sennosides-Docusate Sodium [Senokot-S] 1 tab PO DAILY@79907/08/21 [History] guaiFENesin [Mucinex] 1,200 mg PO BID@07/08/21 [History] traMADol HCL 50 mg PO TID PRN 07/08/21 [History] Apixaban [Eliquis] 2.5 mg PO BID@ #60 tablet 07/15/21 [Rx] Cefdinir [Omnicef] 300 mg PO DAILY #5 cap 07/15/21 [Rx] Furosemide [Lasix] 60 mg PO BID #0 07/15/21 [Rx] Gabapentin [Neurontin] 100 mg PO HS #30 cap 07/15/21 [Rx] Potassium Chloride ER [K-Dur 20] 20 meq PO DAILY #30 tablet 07/15/21 [Rx] Psyllium Husk 100% [Metamucil Packet] 6 gm PO DAILY #30 packet 07/15/21 [Rx] Follow up Appointment(s)/Referral(s): Elías Fontanez MD [STAFF PHYSICIAN] - 2 Weeks (office will call patient to schedule: cystoscopy and bilateral retrograde pyelogram possible stent placement.) Yesica Marroquin [NON-STAFF] - 1 Week Dillon Beth MD [Primary Care Provider] - 1-2 days Patient Instructions/Handouts: Dehydration (DC), Hypokalemia (DC), Hypomagnesemia (DC) Activity/Diet/Wound Care/Special Instructions: [facility], discharge instructions & report given to Matilde at Discharge Disposition: HOME SELF-CARE
== END 2021-07-15 16:31 | disposition home or self-care (01) | DRG 291 ==
LOC: EC 10:46 → 5NMEDONC 14:24
PROVIDERS: ADMIT Hospitalist; ATTEND Hospitalist
PROC: 05HD33Z Insertion of Infusion Device into Right Cephalic Vein, Percutaneous Approach (ICD-10-PCS; principal; 2021-07-13 16:35)
DX: I13.0 Hypertensive heart and chronic kidney disease with heart failure and stage 1 through stage 4 chronic kidney disease, or unspecified chronic kidney disease (principal); N17.0 Acute kidney failure with tubular necrosis; I26.09 Other pulmonary embolism with acute cor pulmonale; I50.33 Acute on chronic diastolic (congestive) heart failure; J81.0 Acute pulmonary edema; E87.3 Alkalosis; I48.19 Other persistent atrial fibrillation; J44.0 Chronic obstructive pulmonary disease with (acute) lower respiratory infection; R18.8 Other ascites; N13.30 Unspecified hydronephrosis; D63.1 Anemia in chronic kidney disease; E78.5 Hyperlipidemia, unspecified; E83.42 Hypomagnesemia; E87.6 Hypokalemia; F02.80 Dementia in other diseases classified elsewhere, unspecified severity, without behavioral disturbance, psychotic disturbance, mood disturbance, and anxiety; G30.9 Alzheimer's disease, unspecified; F20.9 Schizophrenia, unspecified; I25.2 Old myocardial infarction; I27.29 Other secondary pulmonary hypertension; Z20.822 Contact with and (suspected) exposure to COVID-19; J20.9 Acute bronchitis, unspecified; J39.8 Other specified diseases of upper respiratory tract; K21.9 Gastro-esophageal reflux disease without esophagitis; N18.31 Chronic kidney disease, stage 3a; R62.7 Adult failure to thrive; T50.2X5A Adverse effect of carbonic-anhydrase inhibitors, benzothiadiazides and other diuretics, initial encounter; Z53.09 Procedure and treatment not carried out because of other contraindication; Z79.01 Long term (current) use of anticoagulants; Z79.899 Other long term (current) drug therapy; Z85.3 Personal history of malignant neoplasm of breast; Z86.73 Personal history of transient ischemic attack (TIA), and cerebral infarction without residual deficits; Z87.891 Personal history of nicotine dependence; Z90.13 Acquired absence of bilateral breasts and nipples; R26.9 Unspecified abnormalities of gait and mobility; I08.1 Rheumatic disorders of both mitral and tricuspid valves
CPT/HCPCS: 36410; 36415; 71045; 71046; 74018; 74176; 76705; 76770; 76856; 76937; 78580; 80048; 80053; 81001; 82105; 82378; 82550; 82728; 83540; 83550; 83690; 83735; 84132; 84484; 85025; 87635; 87636; 93005; 93306; 94640; 99285